=== PATIENT | female | born 1940 | race Caucasian/White ===

== ENCOUNTER → 2017-08-16 15:20 | Outpatient (REF) | payer MEDICARE, OTHER, SELFPAY | LOC: LAB 15:20 | PROVIDERS: Family Provider Internal Medicine; PCP Internal Medicine; Visit Provider Internal Medicine | DX: L08.9 Local infection of the skin and subcutaneous tissue, unspecified (principal) | CPT/HCPCS: 87070; 87075; 87077; 87205 ==

== ENCOUNTER → 2017-08-30 10:45 | Outpatient (CLI) | payer MEDICARE, OTHER, SELFPAY | PROVIDERS: Family Provider Internal Medicine; PCP Internal Medicine; Visit Provider Internal Medicine | DX: I87.333 Chronic venous hypertension (idiopathic) with ulcer and inflammation of bilateral lower extremity (principal); L97.812 Non-pressure chronic ulcer of other part of right lower leg with fat layer exposed; L97.822 Non-pressure chronic ulcer of other part of left lower leg with fat layer exposed | CPT/HCPCS: 11042 ==

== ENCOUNTER → 2017-09-06 10:34 | Outpatient (CLI) | payer MEDICARE, OTHER, SELFPAY | PROVIDERS: Family Provider Internal Medicine; PCP Internal Medicine; Visit Provider Internal Medicine | DX: I87.313 Chronic venous hypertension (idiopathic) with ulcer of bilateral lower extremity (principal); L97.812 Non-pressure chronic ulcer of other part of right lower leg with fat layer exposed; L97.222 Non-pressure chronic ulcer of left calf with fat layer exposed | CPT/HCPCS: 11042 ==

== ENCOUNTER → 2017-09-13 10:39 | Outpatient (CLI) | payer MEDICARE, OTHER, SELFPAY | PROVIDERS: Family Provider Internal Medicine; PCP Internal Medicine; Visit Provider Internal Medicine | DX: I87.2 Venous insufficiency (chronic) (peripheral) (principal); L97.812 Non-pressure chronic ulcer of other part of right lower leg with fat layer exposed; L97.821 Non-pressure chronic ulcer of other part of left lower leg limited to breakdown of skin | CPT/HCPCS: 11042; 29580 ==

== ENCOUNTER → 2017-09-20 16:02 | Outpatient (CLI) | payer MEDICARE, OTHER, SELFPAY | PROVIDERS: Family Provider Internal Medicine; PCP Internal Medicine; Visit Provider Internal Medicine | DX: I87.313 Chronic venous hypertension (idiopathic) with ulcer of bilateral lower extremity (principal); L97.812 Non-pressure chronic ulcer of other part of right lower leg with fat layer exposed; L97.821 Non-pressure chronic ulcer of other part of left lower leg limited to breakdown of skin | CPT/HCPCS: 11042 ==

== ENCOUNTER → 2017-09-27 14:00 | Outpatient (CLI) | payer MEDICARE, OTHER, SELFPAY ==
--- NOTE | 2017-09-27 | OV.WND_ITS ---
Progress Note Details Patient Name: Tiffanie Gomez Patient Number: [id number] PatientPatientDate: 09/27/2017 Clinician: Kerry Kapadia Clinician Cosigner: Oksana Lyman Physician / Timber Killer: William Zavala SUBJECTIVE Chief Complaint This information was obtained from the patient Venous ulcers to bilateral lower extremities. Allergies Oxycodone (Reaction: severe mental change), Morphine (Reaction: mental change), Hydromorphone (Reaction: mental change), ampicillin (Severity: Severe, Reaction: Itchy rash) HPI This information was obtained from the patient 09/27/17. Seen by Dr. Zavala. The patient reports significant itching associated with the left lower leg compression wrap and has again cut the top portion of the wrap. She's also not been taking her diuretic as prescribed the past few days and staff feel the bilateral lower leg edema has increased considerably since her last visit. Otherwise there's no reported increasing in drainage or pain associated with the bilateral lower leg venous ulcers. 09/20/17. Seen by Dr. Zavala. The patient has tolerated compression therapy that's treating severe bilateral lower leg chronic venous hypertension and associated venous ulcers and staff do not report significant drainage on the dressings. 09/13/17. Seen by Dr. Zavala. The patient has tolerated compression therapy that' s treating severe bilateral lower leg chronic venous hypertension and associated venous ulcers and staff do not report significant drainage on the dressings. 09/06/17. Seen by Dr. Zavala. The patient does not report pain associated with bilateral lower leg venous ulcers since her last visit and she tolerated compression therapy that treating severe bilateral chronic venous hypertension without difficulty. 08/30/17. Seen by Dr. Zavala. The patient does not report pain associated with bilateral lower leg venous ulcers since her last visit and she tolerated compression therapy that treating severe bilateral chronic venous hypertension without difficulty. 08/23/17. Seen by Dr. Zavala. The patient does not report increased drainage or pain associated with bilateral lower leg venous ulcers since her last visit. She reports that she arrived today without dressings over he ulcers however. Her wound culture from the last visit was unremarkable. 08/16/17. Seen by Dr. Zavala. The patient does not report increased drainage or pain associated with bilateral lower leg venous ulcers since her last visit. 08/09/17. Seen by Dr. Zavala. The patient does not report increased drainage or pain associated with bilateral lower leg venous ulcers since her last visit. 08/02/17. Seen by Dr. Zavala. The patient returns for clinic following a recent admission to the hospital for bilateral lower extremity cellulitis. She seen by her primary care provider earlier this week who increased her Lasix from 40 mg 80 mg daily. Despite this she reports significant leg swelling and monitor mental regarding whether she is taking her Lasix as prescribed. She also continues on dicloxacillin for the cellulitis. 07/05/17. Seen by Dr. Zavala. The patient does not report increased drainage or pain associated with bilateral lower leg venous ulcers since her last visit. She states that she is wearing and changing her compression stockings although the nurses note that they were dated at the last visit and do not appear 06/28/17. Seen by Elliot Hernandez PA-C. The patient reports decreased drainage from her lower extremity ulcers. 06/21/17. Seen by Elliot Hernandez PA-C. The patient reports that part of her leg wraps fell down but the portion near her ankles and feet stayed in place. She does not report increased drainage from her lower extremity venous ulcers. 06/14/17. Seen by Elliot Hernandez PA-C. The patient reports no increase in drainage from her bilateral lower extremity ulcers. 06/07/17. Seen by Elliot Hernandez PA-C. The patient reports increased pain in her left foot and increased drainage from her left foot ulcer. 05/31/17. Seen by Dr. Zavala. The patient was recently discharged from the hospital following an admission for left lower leg and left foot cellulitis. She was treated with IV antibiotics and is now on oral levofloxacin and cefdinir. She was also heavily diuresed and has lost 16 pounds from her last visit. She does not report fevers, feeling unwell, nor adverse side effects of her antibiotics. 05/24/17. Seen by Elliot Hernandez PA-C. The patient reports that she has had a low grade fever 05/17/17. Seen by Elliot Hernandez PA-C. The patient reports decreased drainage from her right lower leg venous ulcers since her last evaluation. 05/10/17. Seen by Elliot Hernandez PA-C. The patient reports stable drainage from her right lower leg venous ulcers. When we noted a new ulcer, more proximal than the existing ones, she stated that this new ulcer has been continuously present for a few weeks without worsening or improving. Associated drainage from this new ulcer has been moderate with minimal, non-radiating pain noted. 05/03/17. Seen by Dr. Zavala. The patient does not report increased drainage associated with the chronic right lower leg venous ulcers since her last visit. 04/26/17. Seen by Dr. Zavala. The patient does not report increased drainage associated with the chronic right lower leg venous ulcers since her last visit and she is applying topical antibiotic to treat the MSSA positive wound culture as recommended. 04/19/17. Seen by Dr. Zavala. The patient does not report increased drainage associated with the chronic right lower leg venous ulcers since her last visit. 04/12/17. Seen by Dr. Zavala. The patient does not report pain or increased drainage associated with chronic right lower leg venous ulcers since her last visit. Recent wound culture grew MSSA plus group B streptococcus and Buttiauxella agrestis which is a gram-negative mi. She states she is taking her diuretic, applying topical gentamicin to the wound base, and wearing compression stockings to manage chronic venous hypertension as recommended. 04/05/17. Seen by Dr. Zavala. The patient does not report pain or increased drainage associated with chronic right lower leg venous ulcers since her last visit. 03/29/17. Seen by Dr. Zavala. The patient does not report pain or increased drainage associated with chronic right lower leg venous ulcers since her last visit. 03/22/17. Seen by Dr. Zavala. The patient does not report pain nor significant drainage associated with chronic right lower leg venous ulcer since her last visit. The staff report some new ulcers however over the right lower leg today. 03/15/17. Seen by Dr. Zavala. The patient does not report pain nor significant drainage associated with chronic right lower leg venous ulcer since her last visit and she's wearing her compression stocking as recommended that's treating right lower leg chronic venous hypertension. Her dressing has been in place since Sunday and the staff report some new periwound erythema and possible new areas of skin breakdown. 02/22/17. Seen by Dr. Zavala. The patient does not report pain nor significant drainage associated with chronic right lower leg venous ulcer since her last visit. 02/15/17. Seen by Dr. Zavala. The patient does not report pain nor significant drainage associated with chronic right lower leg venous ulcer since her last visit. 02/08/17. Seen by Elliot Hernandez PA-C. The patient reports she has been unable to change her dressings on her lower legs and has been unable to bathe. Her dressings have remained in place for >1 week. She is hoping to have home health come and help her with dressing changes. Of note, she does not leave the house, except for doctors appointments, and when she does leave it is with great difficulty. 01/11/17. Seen by Dr. Zavala. The patient does not report pain nor significant drainage associated with chronic right lower leg venous ulcer since her last visit. 01/04/17. Seen by Elliot Hernandez PA-C. The patient reports no increase in drainage from her lower extremity ulcers since her last evaluation. 12/28/16. Seen by Elliot Hernandez PA-C. The patient reports decreased drainage from her lower extremity ulcers. 12/21/16. Seen by Elliot Hernandez PA-C. The patient reports decreased drainage from her lower extremity ulcers since her last evaluation. 12/14/16. Seen by Elliot Hernandez PA-C. The patient reports decreased drainage from her lower extremity ulcers. 12/07/16. Seen by Dr. Zavala. The patient does not report significant drainage or pain associated with the chronic right lateral lower leg venous ulcer. The staff however report a new ulcer on the anterior right lower leg today. 11/30/16. Seen by Elliot Hernandez PA-C. The patient reports decreased drainage from her lower leg venous ulcers. 11/23/16. Seen by Dr. Zavala. The patient does not report significant drainage or pain associated with the chronic right lateral lower leg venous ulcer. The staff do report a new ulcer on the posterior left lower leg today. The patient is now being seen at the end of the day and her daughter is accompanying her due to last week's episode of flea infestation and the need for infectious control to be involved in her care plan. Adult Protective Services were also alerted over the past week however there is no feedback yet regarding their involvement. 11/16/16. Seen by Elliot Hernandez PA-C. The patient reports no increase in drainage from her right lower leg venous ulcers. Nursing reports that approximately 20-30 fleas jumped off of the patient's legs including from under her wound dressing, when it was removed. The patient denies having fleas. 11/09/16. Seen by Elliot Hernandez PA-C. The patient reports continued drainage from her right lower leg venous ulcers despite topical antimicrobial therapy. Her recent culture grees pseudomonas stutzeri with multiple sensitivities. 11/02/16. Seen by Dr. Zavala. The patient does not report increased pain associated with the chronic right lower leg venous ulcers however staff report increased colored drainage on her dressings. She does not report fevers or feeling unwell and is not currently on antibiotics. 10/24/16. Seen by Dr. Zavala. The patient does not report increased drainage or pain associated with the right lower leg venous ulcers since her last visit. 10/21/16. Seen by Elliot Hernandez PA-C. The patient's wound culture grew staph aureus. The patient reports stable drainage from her right lower leg venous ulcer. 10/12/16. Seen by Elliot Hernandez PA-C. The patient returns to us after a hospitalization and SNF stay for cellulitis of her right lower leg. Currently she has home health assisting her with her dressing changes for her right lower leg venous ulcer and they have recommended she present to us for more specialized care. 08/23/16. Seen by Dr. Zavala. The patient was unable to start her IV antibiotics that were prescribed at her visit last week due to financial limitations. She is prescribed cefepime at that time to treat the refractory and multidrug-resistant pseudomonas positive wound culture. She reports increased redness in the leg but no significant pain, fevers, or feeling unwell. 08/10/16. Seen by Dr. Zavala. The staff report significant drainage and malodor associated with the chronic right lower leg non-pressure ulcers and the patient continues on antibiotics for the recent Proteus and Enterococcus positive culture but there's a discrepancy on how many days she has left to take. She does not report pain in the leg, fevers, or feeling unwell and states she's changing the dressing twice daily. 07/26/16. Seen by Dr. Zavala. The patient continues on dual antibiotic therapy for the recent Proteus and Entercoccus positive wound cultures taken from the chronic right lower leg venous ulcers without reporting adverse side effects. She feels the larger posterior right lower leg ulcer continues to produce significant drainage but she does not report pain at the site. She states she's wearing her compression stocking and taking her diuretics as prescribed despite showing increased swelling in the leg today. She does not report fevers or feeling unwell in general. 07/20/16. Seen by Dr. Zavala. The patient does not report pain continues report drainage associated with the right chronic venous ulcers. She continues on dual antibiotic therapy without reporting adverse side effects for the recent Proteus and enterococcus positive wound cultures and does not report adverse side effects. She does not report fevers or feeling unwell in general. 07/13/16. Seen by Dr. Zavala. The patient does not report pain continues report drainage associated with the right chronic venous ulcers. She continues on dual antibiotic therapy for the recent Proteus and enterococcus positive wound cultures and does not report adverse side effects. 07/06/16. Seen by Dr. Zavala. The patient does not report pain or increased drainage associated with the chronic right lower leg venous ulcers nor right 3rd toe trauma wound. The staff however continue to report some blue-green drainage from the posterior ulcer. She states she is applying gentamicin ointment topically to the ulcers and is now off of oral antibiotics. She does not report fevers or feeling unwell. 06/29/16. Seen by Dr. Zavala. The patient continues applying topical gentamicin ointment for the Pseudomonas positive culture taken from the right lower leg venous ulcer. The staff continue to report a blue green drainage from the site however the patient does not report significant pain nor significant drainage or pain associated with the other right lower leg venous ulcers. 06/22/16. Seen by Dr. Zavala. The patient continues on antibiotics for the Pseudomonas positive culture taken from the right lower leg venous ulcer. The staff continue to report a blue green drainage from the site however the patient does not report significant pain nor significant drainage or pain associated with the other right lower leg venous ulcers. 06/15/16. Seen by Dr. Zavala. The patient continues on ciprofloxacin for the right lower leg ulcer infection which cultured Pseudomonas. She does not report adverse side effects and feels the drainage has decreased somewhat. The does not report pain at this nor the other lower leg venous ulcers and states she's wearing her compression stockings as recommended. 2/20/17. Seen by Elliot Hernandez PA-C. The patient presents today with 3 new ulcers on her right lower leg which began spontaneously. She has had stable drainage from her previous venous ulcers. 05/18/16. Seen by Dr. Zavala. The patient does not report drainage or pain associated with the bilateral lower leg venous ulcers since her last visit. Of note, the staff report blue/ green drainage on the dressing covering the right lower leg ulcer. 05/11/16. Seen by Dr. Zavala. The patient does not report drainage or pain associated with the bilateral lower leg venous ulcers since her last visit. She should have completed her levofloxacin however states she still has a few tablets left. Of note, she has a habit of not taking her antibiotics as prescribed. 05/04/16 Seen by Elliot Hernandez PA-C. The patient reports no drainage from her left leg venous ulcers since her last dressing change, though she reports a new area of drainage on the right lower anterior leg. 04/27/16. Seen by Dr. Zavala. The patient does not report drainage or pain associated with the bilateral lower leg venous ulcers since her last visit. She's now on levofloxacin and cefdinir for the recent polymicrobial wound culture and does not report adverse side effects, fevers, or feeling unwell in general 04/20/15. Seen by Dr. Zavala. The patient does not report drainage or pain associated with the bilateral lower leg venous ulcers since her last visit however staff report periwound erythema and drainage from most of the ulcers. Of note, she's to be wearing compression stockings to treat bilateral chronic venous hypertension but states she has not for the past day while they're being washed. 03/30/16. Seen by Dr. Zavala. The staff reports a number of new left lower leg venous ulcers. The patient reportedly has been wearing a larger compression stocking due to the recommended size being too tight. The patient states she's been taking her diuretic is prescribed and does not report pain or drainage associated with the bilateral lower leg venous ulcers. She is also on doxycycline now for the staph cultured from her right leg ulcer last visit. 03/23/16. Seen by Dr. Zavala. The staff report a new anterior right lower leg ulcer today however the patient is unaware of this issue. She does not report pain at the site nor at the site of the more lateral/posterior chronic non-pressure ulcer. She states she's wearing her compression stockings however staff note that they appear to be quite dirty. 03/02/16. Seen by Dr. Zavala. The patient does not report pain or significant drainage associated with the chronic right lower leg venous ulcer over the past week. She states that she is compliant in terms of taking her diuretic and wearing compression stockings although she states she did not take her diuretic prior to her appointment today. 02/24/16. Seen by Dr. Zavala. The patient does not report pain or significant drainage associated with the chronic right lower leg venous ulcer over the past week. 02/10/16. Seen by Dr. Zavala. The patient does not report pain or significant drainage associated with the chronic right lower leg venous ulcer and she states she's wearing her compression stocking and taking her diuretic as recommended to address the severe chronic venous hypertension in both leg. She states she's still taking Bactrim, and has been taking it as scheduled, despite the fact this should have run out last week. 02/03/16. Seen by Dr. Zavala. The patient does not report pain or significant drainage associated with the chronic right lower leg venous ulcer and she states she's wearing her compression stocking and taking her diuretic as recommended to address the severe chronic venous hypertension in both legs. She also continues on Bactrim for the recent MRSA positive wound culture and does not report adverse side effects. 01/27/16. Seen by Dr. Zavala. The patient does not report pain or significant drainage associated with the chronic right lower leg venous ulcer and she states she's wearing her compression stocking and taking her diuretic as recommended to address the severe chronic venous hypertension in both legs. She also continues on Bactrim for the recent MRSA and Enterobacter positive wound culture without reporting adverse side effects. 01/20/16. Seen by Dr. Zavala. The patient does not report pain or significant drainage associated with the chronic right lower leg venous ulcer and she states she's wearing her compression stocking and taking her diuretic as recommended to address the severe chronic venous hypertension in both legs. 01/13/16. Seen by Dr. Zavala. The patient does not report pain or significant drainage associated with the chronic right lower leg venous ulcer and she states she's wearing her compression stocking and taking her diuretic as recommended to address the severe chronic venous hypertension in both legs. She does not report pain or recurrence of cellulitis in the left lower leg that was recently treated during a hospital admission. 01/06/16. Seen by Dr. Zavala. The patient was recently discharged from [facility] following a hospital admission for severe left lower leg cellulitis. She feels this has resolved and she does not report significant drainage associated with remaining chronic right lower leg venous ulcer. She was treated with IV antibiotics for the cellulitis and has been on her diuretic as prescribed to address the significant bilateral chronic venous hypertension. 12/16/15. Seen by Dr. Zavala. The patient presents with her daughter today who's very concerned her mother has been having 'flu-like' symptoms and feeling quite unwell the past couple of days. The patient reports increased redness and swelling in the left lower leg along with a subjective fever. The patient does not report a cough or symptoms unrelated to her left lower leg at this time. 12/09/15. Seen by Dr. Zavala. The patient presents with a few new venous ulcers over the right lower leg. She states she's not wearing her compression stocking because she was advised as such. She's been placing a Xeroform dressing over the ulcers although we recommended Exudry. She also states she did not take her diuretic today but has been taking it as prescribed otherwise. She does not report pain associated with the right lower leg venous ulcers nor fevers or feeling unwell. 12/02/15. Seen by Dr. Zavala. The patient does not report pain or increase drainage associated with her chronic right lower leg venous ulcers over the past week. 11/11/15. Seen by Dr. Zavala. The patient states she's wearing her compression stockings and taking her diuretic as prescribed. She does not report pain or drainage associated with the chronic bilateral lower leg venous ulcers. 11/04/15. Seen by Dr. Zavala. The patient does not report significant drainage or pain associated with the bilateral venous ulcers over the past week. She's taking her diuretic as prescribed and wearing compression stockings as recommended. 10/28/15. Seen by Dr. Zavala. The patient does not report pain or significant drainage associated with the right lower leg venous ulcer in the past week. She states she's wearing her compression stockings as recommended. She's also been taking her antibiotic is prescribed to treat the right lower leg wound infection. 10/21/[address] Zavala. The patient does not report pain or significant drainage associated with the bilateral venous ulcers and states she's wearing her compression stockings and taking her diuretic as directed. Her wound culture from the last visit grew Enterobacter and Proteus and she's not current taking oral antibiotics. 10/14/[address] Zavala. The patient feels her bilateral leg swelling is decreasing and she states she remain compliant with her diuretic therapy and wearing of compression stockings to treat chronic venous hypertension and associated multiple bilateral venous ulcers. She's applying gentamicin ointment to the ulcers to treat the recent Proteus and Enterobacter positive wound culture and she does not report significant pain or drainage associated with any of the ulcers. 10/07/[address] Zavala. The patient reports continued drainage associated with the bilateral lower leg venous ulcers. She also reports minimal pain associated with the right anterior lower leg ulcer. She's not wearing her compression stockings daily as recommended and skips a dose of Lasix intermittently. 09/30/[address] Zavala. The patient reports minimal pain and drainage associated with the chronic right and left lower leg venous ulcers over the past week. 09/23/15 Seen by Elliot Hernandez PA-C. The patient reports stable drainage from her lower leg ulcers. 09/16/[address] Zavala. The patient continues to report swelling and erythema of the right lower leg and some mild discomfort associated with the distal venous ulcer. She's wearing compression stockings as recommended to treat the chronic venous hypertension and she's completed a course of cefdinir within the last week for a polymicrobial wound culture and she does no report adverse side effects. She does not report fever or feeling unwell in general otherwise. 09/09/[address] Zavala. The patient states her right lower leg pain is improving and she continues on cefdinir for the recent Staph and Proteus positive wound culture. She also states she's wearing he compression stockings as recommended. 09/02/[address] Zavala. The patient reports persistent swelling and redness of the right lower leg in the periwound areas and states she continues to take her antibiotics although she should have completed her course after her last visit. Her recent wound culture grew Proteus and MSSA. She does not report significant drainage from the bilateral lower leg venous ulcers and is wearing her compression stockings as recommended. 08/26/[address] Zavala. The patient does not report significant pain or drainage associated with her bilateral lower leg venous ulcers and she's now on cefdinir for a Staph and Proteus positive wound culture taken at the last visit. She feels her leg swelling and redness have improved and she's started taking her diuretic again as recommended. She's not yet wearing her compression stockings however. 08/19/[address] Zavala. The patient returns to clinic reporting new ulcers over the bilateral lower legs She reports increased swelling and redness of the right lower leg starting about two weeks ago but no fever or associated pain. She also admits to not taking her Lasix as scheduled due to urinary incontinence issues and has been unable to apply her compression stockings due to the increased swelling. 05/27/[address] Zavala. The patient does not report significant drainage from her bilateral lower leg venous ulcers and she's wearing compression stockings and taking Lasix as recommended. 05/13/[address] Zavala. The patient's weight has increased by 7 lbs since her last visit and the staff report new venous ulcers over the lower legs. The patient states she missed her lasix dosage the past two days as well but has been wearing her compression stockings daily. 04/22/[address] Zavala. The patient does not report any new leg ulcers nor significant drainage or pain from the previously documented bilateral lower leg venous ulcers. 04/15/[address] Zavala. The staff report a new left posterior left lower leg ulcer however the patient does not know how this may have occurred and states it is not painful. In fact she does not report significant drainage or pain associated with any of her bilateral lower leg venous ulcers. 04/01/[address] Zavala. The patient reports a new right anterior lower leg ulcer that she feels occurred as an abrasion from the Tetragrip compression stocking. She remains compliant with compression therapy to treat her chronic venous hypertension and bilateral lower leg venous ulcers and does not report significant pain or drainage from any. 03/18/[address] Zavala. The patient does not report any new ulcers nor significant drainage or pain associated with the chronic bilateral lower leg venous ulcers. 03/10/[address] Zavala. The patient reports a new ulcer on the right lower leg but does not report trauma to the area. She states she's wearing her compression stockings as recommended. She does not report pain or significant drainage from the bilateral lower leg chronic venous ulcers and states she's compliant with her diuretic therapy which has been treating her leg edema. 03/04/[address] Zavala. The patient reports new ulcers over both lower legs but does not recall when in the past week they occurred nor any inciting events. She continues to compression stockings as recommended for chronic venous hypertension and does not report significant pain or drainage associated with any of the venous ulcers. 02/18/[address] Zavala. The patient reports a new ulcer over the anterior right lower leg the was first noticed yesterday when taking off her compression stocking. It started as a blister and she states it's not painful. She also states she's taking her diuretic as prescribed. 01/28/[address] Zavala. The patient does not report any problems regarding her right lower leg venous ulcer and she states she's wearing her compression stockings and taking her diuretic as prescribed. 01/14/[address] Zavala. The patient does not report significant drainage or pain associated with the bilateral lower leg venous ulcers. She states she's been compliant with her diuretic therapy and compression stockings and her weight is unchanged from last week. 01/07/[address] Zavala. The patient does not report drainage or pain associated with her bilateral lower leg venous ulcers and she was able to wear her compression stockings as recommended. She also reports being compliant with her diuretic therapy. 12/31/[address] Zavala. The patient was recently discharged from the hospital following treatment for left leg cellulitis. She feels the swelling and erythema are much improved and she's completed her course of antibiotics. She has recurrence of venous ulcers over both lower legs and reports moderate drainage but no pain. She's also reports being compliant with her diuretic therapy but has not been wearing compression stockings as we've recommended repeatedly in the past. 09/18/[address] Zavala. The patient has a fever of 101.9 today and complains only of some shortness of breath. She does not report increased swelling, pain, or drainage associated with her bilateral lower leg venous ulcers and she's currently not on systemic antibiotics. 09/10/[address] Zavala. The patient states she started taking her lasix as prescribed and feels her leg swelling is decreasing. She does not report increased drainage from the bilateral lower extremity venous ulcers and is using only topical gentamicin ointment. She states she's wearing her compression stockings during the day as recommended. She's also drinking 1-2 Ensure protein drinks daily to address her protein calorie malnutrition. 09/03/[address] Zavala. The patient does not report fever or chills but admits to being noncompliant with her diuretic therapy. Her weight is up 13 lbs in the past two weeks. She also reports a rash after starting her ampicllin and stopped using it on Sunday. She also states she's drinking one Ensure daily to address her protein calorie malnutrition. 08/27/[address] Zavala. The patient has been wearing her Tetragrips to the level of the ankles as recommended. She's taking ampicillin for an Enterococcus positive wound culture reported on 08/21/14. She does not report pain or increased drainage from the venous ulcers. 08/20/[address] Zavala. The patient states she's not comfortable wearing the compression wraps and they tend to slip down her legs. She does not report pain or drainage from the bilateral lower leg venous ulcer sites and states she's much prefer using her compression stockings instead of wraps. She also continues on doxycycline and does not report adverse side effects. 08/11/14 Seen by Elliot Hernandez PA-C. The patient reports that her wraps slid down her legs again and she finds them uncomfortable and difficult to comply with. She was able to find her old Juxtalite compression stocking for her left leg only and believes her other one is lost. She also reports that she has previously used the same stocking, on both legs by alternating the application of the stockings. 07/30/14 The patient tolerated the compression wraps without difficulty and they were able to stay in place until her appointment today. She continues on doxycycline and states she has no pain associated with the leg ulcers. 07/28/14 The patient tolerated the compression wraps without difficulty and feels her bilateral lower leg ulcers are much improved. She does not report pain or increased drainage and continues on doxycycline. 07/23/14 The patient feels her leg swelling is increasing somewhat and states she wears her compression stockings most days. She does not report increase pain or drainage associated with her bilateral lower leg ulcers and she continues on doxycycline for cellulitis in the lower legs. Of note, her prealbumin was 13.7 in early June and she's was advised to drink and Ensure daily at the time. In regards to her weight it's been fluctuating recently which probably has more to do with water retention than nutrition. 07/16/14 The patient feels the drainage from her leg ulcers has decreased considerably since her last visit and she's remains compliant with her antibiotic therapy along with wearing her compression stockings as recommended. 07/09/14 The patient reports decreased pain and drainage from her venous leg ulcers. She has been compliant with her doxycycline and tetra item processing clerk compression. Her diuretics have not been changed. 07/02/14 The patient has two new ulcers on her lower legs today and is unclear as to whether she's been wearing compression stockings at home. Of note, her compression wraps have not stayed in place in the past due to the significant narrowing of her legs below the calf muscles. She also states she's on a diuretic although I do not see one on her recent discharge medication list. She' s had a 10 lb weight gain over the past 2 weeks. 06/26/14 The patient returns to the clinic with new lower leg wounds which she states were first noticed a couple of days ago but she does not recall injury to the sites. She states she' s been wearing her compression stockings as recommended. Of note, her prealbumin on 06/15/14 was 13.7. 06/17/14 The patient feels her leg swelling and ulcers are much improved and does not report increased drainage or pain. 06/10/14 The patient does not report any new issues regarding her leg ulcers however she does have a number of new wounds on the lower legs including a pressure ulcer on the left heal. She's also off of antibiotics now with no reported fever or increase in drainage. The dressings on the left leg were noted to be dried and adherent to the underlying ulcers. 06/03/14 The patient was recently discharged to [facility] from [facility] following treatment for severe left leg cellulitis an bilateral venous ulcers. She as found to have considerable fecal material over both lower legs and her wound culture grew on streptococcus. She continues on IV antibiotics and feels the leg pain is much improved. ____ Patient admitted to hospital 2 weeks ago for cellulitis in her right leg. Over ten excoriated areas on right leg, and very swollen. 08/15/12 everything went ok with the wraps. 08/19/12 Dressing came off last night. Tubigrip on 08/27/12 Arrives without tubigrip on legs. States has been wearing but not this am. Has scattered superficial ulcers over lower right leg. States been using dry skin cream. Had dressings from last , [address] mid tibia 09/03 Patient arrived to clinic with wrap intact on right leg and medigrip on left leg. States she is having no pain and that legs seem to be doing fine. 03/07/13- Patient is being seen by us today because she had cellulitis in her left leg, was admitted into the hospital on 02/20/13 and discharged on 02/28/13. Is now residing at [facility]. Her leg has cleared up, scattered areas of erythema and some excoriations are present. Edema measurements are similar to patient's last visit. 03/28/13 Pt states she has been wearing compression stockings at home but isn't wearing them today. No new concerns or complaints. 05/02/13 has been applying cream qOday and tetrigrip stockings. now has 4 areas of wounds to right lower leg. has been taking antibiotic as prescribed 05/14/13 Dressing being changed every other day. No problems or concerns. Wearing tetragrip on right leg but was cutting circulation off in left leg so patient was is not wearing it anymore 05/21/13 Pt took dressings off this am but did not replace with a fresh dressing. PT has tetra item processing clerk to right leg only.05/28/13 Pt states she still has a rash on her abdomen that bleeds a little. 06/04/13 Dressing being changed daily. No problems or concerns 06/11/13 Pt states dressing changes going ok at home.Pt states drainage from abdominal wound has decreased and she thinks the rash around belly button has cleared. 06/18/13 Pt states she thinks things are going well. Umbillicus dressing not preformed as instructed and two pieces of foam found in umbillicus. Increase in drainage and pt states it was changed yesterday. Increased odor. 06/23/13- No new problems or concernss. Changing abdomen dressing about every other day, states no problems with dressing changes. Past Medical History This information was obtained from the patient Patient has a medical history of: Peripheral neuropathy Necrotizing fasciitis Childhood rheumatic fever Chronic venous hypertension (with ulcer and inflammation; bilateral lower legs; Enterococcus and Diptheroids positive culture 08/21/14) Protein calorie malnutrition - 06/15/2014 Complaints and Symptoms This information was obtained from the patient Patient complains of: General Notes: I have reviewed and concur with the Review of Systems and Past Family Social History documents completed by the clinician, I have reviewed and concur with the Wound Assessment document completed by the clinician Cardiovascular (Central/Peripheral): Lower extremity (leg) swelling Integumentary (Hair/Skin/Nails): Open Sore Musculoskeletal: Assistive Devices Prior Wound History: Drainage, Erythema, Pain Patient denies complaints or symptoms related to: Cardiovascular (Central/Peripheral): Lower extremity (leg) resting pain Constitutional Symptoms (General Health): Chills, Fever, Marked Weight Change Ear/Nose/Mouth/Throat: Hearing Loss / Aid Gastrointestinal (GI): Nausea / Vomiting, Stomach/abdominal pain Hematologic/Lymphatic: Bleeding / Clotting Disorders, Bleeding Tendency Neurological: Loss of Protective Sensation Prior Wound History: Bleeding, Malodor Psychiatric: Memory Loss Respiratory: Oxygen Use, Shortness of Breath OBJECTIVE Constitutional BP elevated; Afebrile; Alert and in no distress. Well developed. Alert. Clean appearing.. Height/Length: 65 in (165.1 cm), Weight: 295.7 lbs (134.41 kgs), BMI: 49.2, Temperature: 97.8 ? F (36.56 ?C), Pulse: 81 bpm, Respiratory Rate: 18 breaths/min, Blood Pressure: 143/73 mmHg, Pulse Oximetry: 98 %. Ears, Nose, Mouth, and Throat: No clinically significant hearing loss on informal examination. Respiratory: Cardiovascular: 3+ bilateral lower leg edema; increased from last visit. Gastrointestinal (GI): Obese. Nondistended.. Integumentary (Hair, Skin) Hyperkeratotic changes noted over the bilateral lower legs. Refer to appropriate clinician wound documentation for this visit; right and left lower leg ulcers extend to subcut with bases partially covered with pink granulation, remainder fibrin and slough. Wound #80 Right, Lateral Leg is a chronic Full Thickness Venous Ulcer and has received a status of Not Healed. Subsequent wound encounter measurements are 0.8cm length x 0.5cm width x 0.1cm depth, with an area of 0.4 sq cm and a volume of 0.04 cubic cm. There is a moderate amount of sero- sanguineous drainage noted which has no odor. The patient reports a wound pain of level 0/10. The wound margin is attached. Wound bed has No epithelialization, No eschar, Yes slough, Yes bright red, firm granulation. The periwound skin moisture is normal. The periwound skin color is normal. The periwound skin exhibited: Edema, Induration. The periwound skin did not exhibit: Brawny Induration, Excoriation, Callus, Crepitus, Fluctuance, Friable, Rash. The temperature of the periwound skin is WNL. Periwound skin does not exhibit signs or symptoms of infection. Local Pulse is Normal. Wound #83 Left, Posterior Leg - lower is an acute Partial Thickness Venous Ulcer and has received a status of Not Healed. Subsequent wound encounter measurements are 0.4cm length x 0.3cm width x 0.2cm depth, with an area of 0.12 sq cm and a volume of 0.024 cubic cm. There is a small amount of sero-sanguineous drainage noted which has no odor. The patient reports a wound pain of level 0/10. The wound margin is attached. Wound bed has Yes epithelialization, No eschar, Yes slough, Yes bright red, firm granulation. The periwound skin moisture is normal. The periwound skin color is normal. The periwound skin exhibited: Edema. The periwound skin did not exhibit: Brawny Induration, Excoriation, Induration, Callus, Crepitus, Fluctuance, Friable, Rash. The temperature of the periwound skin is WNL. Periwound skin does not exhibit signs or symptoms of infection. Local Pulse is Palpable. Wound #85 Right, Posterior Leg is a Full Thickness Venous Ulcer and has received a status of Not Healed. Subsequent wound encounter measurements are 0.5cm length x 0.5cm width x 0.1cm depth, with an area of 0.25 sq cm and a volume of 0.025 cubic cm. No tunneling has been noted. No sinus tract has been noted. No undermining has been noted. There is a small amount of sero- sanguineous drainage noted which has no odor. The patient reports a wound pain of level 1/10. The wound margin is attached. Wound bed has No epithelialization, No eschar, Yes slough, Yes pink, firm granulation. The periwound skin moisture is normal. The periwound skin color is normal. The periwound skin exhibited: Edema. The periwound skin did not exhibit: Brawny Induration, Excoriation, Induration, Callus, Crepitus, Fluctuance, Friable, Rash. The temperature of the periwound skin is WNL. Periwound skin does not exhibit signs or symptoms of infection. Local Pulse is Doppler. Neurological: Cranial nerves grossly intact with symmetric function normal by informal observation.. ASSESSMENT Active Problems ICD-10 (Encounter Diagnosis) I87.333 - Chronic venous hypertension (idiopathic) with ulcer and inflammation of bilateral lower extremity (Encounter Diagnosis) L97.812 - Non-pressure chronic ulcer of other part of right lower leg with fat layer (Encounter Diagnosis) L97.822 - Non-pressure chronic ulcer of other part of left lower leg with fat layer exposed (Encounter Diagnosis) Z91.19 - Patient's noncompliance with other medical treatment and regimen (Encounter Diagnosis) L29.8 - Other pruritus PROCEDURES Wound #80 Wound #80 (Venous Ulcer) is located on the right, lateral leg. A skin/ subcutaneous tissue level surgical debridement with a total area debrided of 0.4 sq cm was performed by William Zavala MD. Subcutaneous was removed along with devitalized tissue: slough. The following instrument(s) were used curette. Pain control was achieved using 4% Lido. A time out was conducted prior to the start of the procedure. A minimal amount of bleeding was controlled with n/a. The procedure was tolerated well with a pain level of 0 throughout and a pain level of 0 following the procedure. Post Debridement Measurements: 0.8cm length x 0.5cm width x 0.2cm depth; with an area of 0.4 sq cm and a volume of 0.08 cubic cm; Wound #80 (Venous Ulcer) is located on the right, lateral leg. A Multilayer Compression procedure was performed by Kerry Kapadia RN. General Notes: Coban 2 layer compression wrap. Wound #83 Wound #83 (Venous Ulcer) is located on the left, posterior leg - lower. A skin/ subcutaneous tissue level surgical debridement with a total area debrided of 0.12 sq cm was performed by William Zavala MD. Subcutaneous was removed along with devitalized tissue: slough. The following instrument(s) were used curette. Pain control was achieved using 4% Lido. A time out was conducted prior to the start of the procedure. A minimal amount of bleeding was controlled with n/a. The procedure was tolerated well with a pain level of 0 throughout and a pain level of 0 following the procedure. Post Debridement Measurements: 0.4cm length x 0.3cm width x 0.3cm depth; with an area of 0.12 sq cm and a volume of 0.036 cubic cm; Wound #83 (Venous Ulcer) is located on the left, posterior leg - lower. A Multilayer Compression procedure was performed by Kerry Kapadia RN. General Notes: Coban 2 layer compression wrap. Wound #85 Wound #85 (Venous Ulcer) is located on the right, posterior leg. A skin/ subcutaneous tissue level surgical debridement with a total area debrided of 0.25 sq cm was performed by William Zavala MD. Subcutaneous was removed along with devitalized tissue: slough. The following instrument(s) were used curette. Pain control was achieved using 4% Lido. A time out was conducted prior to the start of the procedure. A minimal amount of bleeding was controlled with n/a. The procedure was tolerated well with a pain level of 0 throughout and a pain level of 0 following the procedure. Post Debridement Measurements: 0.5cm length x 0.5cm width x 0.2cm depth; with an area of 0.25 sq cm and a volume of 0.05 cubic cm; Additional Information Muscle fascia or bone removed and sent to pathology?: No Muscle fascia or bone removed and sent to pathology?: No Muscle fascia or bone removed and sent to pathology?: No Wound Orders: Wound #80 Right, Lateral Leg Anesthetic Topical Xylocaine to wound bed. - In clinic only. Cleanser Cleanse Wound: - Normal saline and gauze. May Shower. - Please use cast protector when showering. Topical Treatments Moisturizing lotion to surround skin. - Triamcinolone to chantal wound skin Dressings Primary dressing: - Bordered Foam. Cast padding to fill lower leg. UNNA layers to hold cast padding in place and below knee to hold up wrap. Cover and secure with: - Foam to cover all wounds. Coban 2 Layer compression wraps to both legs. Change Dressing: - Leave in place until next visit. Wound #83 Left, Posterior Leg - lower Anesthetic Topical Xylocaine to wound bed. - In clinic only. Cleanser Cleanse Wound: - Normal saline and gauze. May Shower. - Please use cast protector when showering. Topical Treatments Moisturizing lotion to surround skin. - Triamcinolone to chantal wound skin Dressings Primary dressing: - Bordered Foam. Cast padding to fill lower leg. UNNA layers to hold cast padding in place and below knee to hold up wrap. Cover and secure with: - Foam to cover all wounds. Coban 2 Layer compression wraps to both legs. Change Dressing: - Leave in place until next visit. Wound #85 Right, Posterior Leg Anesthetic Topical Xylocaine to wound bed. - In clinic only. Cleanser Cleanse Wound: - Normal saline and gauze. May Shower. - Please use cast protector when showering. Topical Treatments Moisturizing lotion to surround skin. - Triamcinolone to chantal wound skin Dressings Primary dressing: - Bordered Foam. Cast padding to fill lower leg. UNNA layers to hold cast padding in place and below knee to hold up wrap. Cover and secure with: - Foam to cover all wounds. Coban 2 Layer compression wraps to both legs. Change Dressing: - Leave in place until next visit. Additional Orders: Compression/Edema Control Multi Layer Wrap: - Coban 2 Layer compression wraps to both legs. Follow-Up Appointments Return Appointment: - - One week. Other information: If you develop fever, chills, increased pain, drainage, redness or swelling please call our office. If after hours, respond to the ER. Should you experience any significant changes in your wound(s) or have any questions regarding your home care instructions please contact the wound center @ [phone]. If after hours, contact your primary care physician or go to the hospital emergency room. Scribing Attestation I attest, as the nurse, that I scribed these orders for the physician. I've reviewed the clinician's documentation and agree with the evaluation and plan as written. In addition the patient's ulcers demonstrate evidence of non-viable devitalized tissue and they will continue to benefit from sharp debridement to help promote granulation and expedite healing. Also, we've applied topical triamcinolone to the proximal left lower leg to address the pruritus which hopefully will allow her to better tolerate the compression wrap. She'll also see her PCP later today and discuss her diuretic therapy which has been essential in helping to manage her severe chronic venous hypertension. Electronic Signature(s) Signed By: Date: William Zavala MD 09/28/2017 08:42:30 Entered By: William Zavala on 09/28/2017 08:35:00
== END ==
PROVIDERS: Family Provider Internal Medicine; PCP Internal Medicine; Visit Provider Internal Medicine
DX: I87.313 Chronic venous hypertension (idiopathic) with ulcer of bilateral lower extremity (principal); L97.812 Non-pressure chronic ulcer of other part of right lower leg with fat layer exposed; L97.822 Non-pressure chronic ulcer of other part of left lower leg with fat layer exposed; Z91.19 Patient's noncompliance with other medical treatment and regimen; L29.8 Other pruritus
CPT/HCPCS: 11042

== ENCOUNTER → 2017-10-04 11:59 | Outpatient (CLI) | payer MEDICARE, OTHER, SELFPAY ==
--- NOTE | 2017-10-04 | OV.WND_ITS ---
Progress Note Details Patient Name: Tiffanie Gomez Patient Number: [id number] PatientPatientDate: 10/04/2017 Clinician: Kerry Kapadia Clinician Cosigner: Melissa Warren Physician / Willow Worker: Warren Hernandez SUBJECTIVE Chief Complaint This information was obtained from the patient Venous ulcers to bilateral lower extremities. Allergies Oxycodone (Reaction: severe mental change), Morphine (Reaction: mental change), Hydromorphone (Reaction: mental change), ampicillin (Severity: Severe, Reaction: Itchy rash) HPI This information was obtained from the patient 10/04/17. Seen by Elliot Hernandez PA-C. The patient reports stable drainage from her left lower leg venous ulcers. 09/27/17. Seen by Dr. Zavala. The patient reports significant itching associated with the left lower leg compression wrap and has again cut the top portion of the wrap. She's also not been taking her diuretic as prescribed the past few days and staff feel the bilateral lower leg edema has increased considerably since her last visit. Otherwise there's no reported increasing in drainage or pain associated with the bilateral lower leg venous ulcers. 09/20/17. Seen by Dr. Zavala. The patient has tolerated compression therapy that's treating severe bilateral lower leg chronic venous hypertension and associated venous ulcers and staff do not report significant drainage on the dressings. 09/13/17. Seen by Dr. Zavala. The patient has tolerated compression therapy that' s treating severe bilateral lower leg chronic venous hypertension and associated venous ulcers and staff do not report significant drainage on the dressings. 09/06/17. Seen by Dr. Zavala. The patient does not report pain associated with bilateral lower leg venous ulcers since her last visit and she tolerated compression therapy that treating severe bilateral chronic venous hypertension without difficulty. 08/30/17. Seen by Dr. Zavala. The patient does not report pain associated with bilateral lower leg venous ulcers since her last visit and she tolerated compression therapy that treating severe bilateral chronic venous hypertension without difficulty. 08/23/17. Seen by Dr. Zavala. The patient does not report increased drainage or pain associated with bilateral lower leg venous ulcers since her last visit. She reports that she arrived today without dressings over he ulcers however. Her wound culture from the last visit was unremarkable. 08/16/17. Seen by Dr. Zavala. The patient does not report increased drainage or pain associated with bilateral lower leg venous ulcers since her last visit. 08/09/17. Seen by Dr. Zavala. The patient does not report increased drainage or pain associated with bilateral lower leg venous ulcers since her last visit. 08/02/17. Seen by Dr. Zavala. The patient returns for clinic following a recent admission to the hospital for bilateral lower extremity cellulitis. She seen by her primary care provider earlier this week who increased her Lasix from 40 mg 80 mg daily. Despite this she reports significant leg swelling and monitor mental regarding whether she is taking her Lasix as prescribed. She also continues on dicloxacillin for the cellulitis. 07/05/17. Seen by Dr. Zavala. The patient does not report increased drainage or pain associated with compression stockings although the nurses note that they were dated at the last visit and do not appear to be changed since then. 06/28/17. Seen by Elliot Hernandez PA-C. The patient reports decreased drainage from her lower extremity ulcers. 06/21/17. Seen by Elliot Hernandez PA-C. The patient reports that part of her leg wraps fell down but the portion near her ankles and feet stayed in place. She does not report increased drainage from her lower extremity venous ulcers. 06/14/17. Seen by Elliot Hernandez PA-C. The patient reports no increase in drainage from her bilateral lower extremity ulcers. 06/07/17. Seen by Elliot Hernandez PA-C. The patient reports increased pain in her left foot and increased drainage from her left foot ulcer. 05/31/17. Seen by Dr. Zavala. The patient was recently discharged from the hospital following an admission for left lower leg and left foot cellulitis. She was treated with IV antibiotics and is now on oral levofloxacin and cefdinir. She was also heavily diuresed and has lost 16 pounds from her last visit. She does not report fevers, feeling unwell, nor adverse side effects of her antibiotics. 05/24/17. Seen by Elliot Hernandez PA-C. The patient reports that she has had a low grade fever 05/17/17. Seen by Elliot Hernandez PA-C. The patient reports decreased drainage from her right lower leg venous ulcers since her last evaluation. 05/10/17. Seen by Elliot Hernandez PA-C. The patient reports stable drainage from her right lower leg venous ulcers. When we noted a new ulcer, more proximal than the existing ones, she stated that this new ulcer has been continuously present for a few weeks without worsening or improving. Associated drainage from this new ulcer has been moderate with minimal, non-radiating pain noted. 05/03/17. Seen by Dr. Zavala. The patient does not report increased drainage associated with the chronic right lower leg venous ulcers since her last visit. 04/26/17. Seen by Dr. Zavala. The patient does not report increased drainage associated with the chronic right lower leg venous ulcers since her last visit and she is applying topical antibiotic to treat the MSSA positive wound culture as recommended. 04/19/17. Seen by Dr. Zavala. The patient does not report increased drainage associated with the chronic right lower leg venous ulcers since her last visit. 04/12/17. Seen by Dr. Zavala. The patient does not report pain or increased drainage associated with chronic right lower leg venous ulcers since her last visit. Recent wound culture grew MSSA plus group B streptococcus and Buttiauxella agrestis which is a gram-negative mi. She states she is taking her diuretic, applying topical gentamicin to the wound base, and wearing compression stockings to manage chronic venous hypertension as recommended. 04/05/17. Seen by Dr. Zavala. The patient does not report pain or increased drainage associated with chronic right lower leg venous ulcers since her last visit. 03/29/17. Seen by Dr. Zavala. The patient does not report pain or increased drainage associated with chronic right lower leg venous ulcers since her last visit. 03/22/17. Seen by Dr. Zavala. The patient does not report pain nor significant drainage associated with chronic right lower leg venous ulcer since her last visit. The staff report some new ulcers however over the right lower leg today. 03/15/17. Seen by Dr. Zavala. The patient does not report pain nor significant drainage associated with chronic right lower leg venous ulcer since her last visit and she's wearing her compression stocking as recommended that's treating right lower leg chronic venous hypertension. Her dressing has been in place since Sunday and the staff report some new periwound erythema and possible new areas of skin breakdown. 02/22/17. Seen by Dr. Zavala. The patient does not report pain nor significant drainage associated with chronic right lower leg venous ulcer since her last visit. 02/15/17. Seen by Dr. Zavala. The patient does not report pain nor significant drainage associated with chronic right lower leg venous ulcer since her last visit. 02/08/17. Seen by Elliot Hernandez PA-C. The patient reports she has been unable to change her dressings on her lower legs and has been unable to bathe. Her dressings have remained in place for >1 week. She is hoping to have home health come and help her with dressing changes. Of note, she does not leave the house, except for doctors appointments, and when she does leave it is with great difficulty. 01/11/17. Seen by Dr. Zavala. The patient does not report pain nor significant drainage associated with chronic right lower leg venous ulcer since her last visit. 01/04/17. Seen by Elliot Hernandez PA-C. The patient reports no increase in drainage from her lower extremity ulcers since her last evaluation. 12/28/16. Seen by Elliot Hernandez PA-C. The patient reports decreased drainage from her lower extremity ulcers. 12/21/16. Seen by Elliot Hernandez PA-C. The patient reports decreased drainage from her lower extremity ulcers since her last evaluation. 12/14/16. Seen by Elliot Hernandez PA-C. The patient reports decreased drainage from her lower extremity ulcers. 12/07/16. Seen by Dr. Zavala. The patient does not report significant drainage or pain associated with the chronic right lateral lower leg venous ulcer. The staff however report a new ulcer on the anterior right lower leg today. 11/30/16. Seen by Elliot Hernandez PA-C. The patient reports decreased drainage from her lower leg venous ulcers. 11/23/16. Seen by Dr. Zavala. The patient does not report significant drainage or pain associated with the chronic right lateral lower leg venous ulcer. The staff do report a new ulcer on the posterior left lower leg today. The patient is now being seen at the end of the day and her daughter is accompanying her due to last week's episode of flea infestation and the need for infectious control to be involved in her care plan. Adult Protective Services were also alerted over the past week however there is no feedback yet regarding their involvement. 11/16/16. Seen by Elliot Hernandez PA-C. The patient reports no increase in drainage from her right lower leg venous ulcers. Nursing reports that approximately 20-30 fleas jumped off of the patient's legs including from under her wound dressing, when it was removed. The patient denies having fleas. 11/09/16. Seen by Elliot Hernandez PA-C. The patient reports continued drainage from her right lower leg venous ulcers despite topical antimicrobial therapy. Her recent culture grees pseudomonas stutzeri with multiple sensitivities. 11/02/16. Seen by Dr. Zavala. The patient does not report increased pain associated with the chronic right lower leg venous ulcers however staff report increased colored drainage on her dressings. She does not report fevers or feeling unwell and is not currently on antibiotics. 10/24/16. Seen by Dr. Zavala. The patient does not report increased drainage or pain associated with the right lower leg venous ulcers since her last visit. 10/21/16. Seen by Elliot Hernandez PA-C. The patient's wound culture grew staph aureus. The patient reports stable drainage from her right lower leg venous ulcer. 10/12/16. Seen by Elliot Hernnadez PA-C. The patient returns to us after a hospitalization and SNF stay for cellulitis of her right lower leg. Currently she has home health assisting her with her dressing changes for her right lower leg venous ulcer and they have recommended she present to us for more specialized care. 08/23/16. Seen by Dr. Zavala. The patient was unable to start her IV antibiotics that were prescribed at her visit last week due to financial limitations. She is prescribed cefepime at that time to treat the refractory and multidrug-resistant pseudomonas positive wound culture. She reports increased redness in the leg but no significant pain, fevers, or feeling unwell. 08/10/16. Seen by Dr. Zavala. The staff report significant drainage and malodor associated with the chronic right lower leg non-pressure ulcers and the patient continues on antibiotics for the recent Proteus and Enterococcus positive culture but there's a discrepancy on how many days she has left to take. She does not report pain in the leg, fevers, or feeling unwell and states she's changing the dressing twice daily. 07/26/16. Seen by Dr. Zavala. The patient continues on dual antibiotic therapy for the recent Proteus and Entercoccus positive wound cultures taken from the chronic right lower leg venous ulcers without reporting adverse side effects. She feels the larger posterior right lower leg ulcer continues to produce significant drainage but she does not report pain at the site. She states she's wearing her compression stocking and taking her diuretics as prescribed despite showing increased swelling in the leg today. She does not report fevers or feeling unwell in general. 07/20/16. Seen by Dr. Zavala. The patient does not report pain continues report drainage associated with the right chronic venous ulcers. She continues on dual antibiotic therapy without reporting adverse side effects for the recent Proteus and enterococcus positive wound cultures and does not report adverse side effects. She does not report fevers or feeling unwell in general. 07/13/16. Seen by Dr. Zavala. The patient does not report pain continues report drainage associated with the right chronic venous ulcers. She continues on dual antibiotic therapy for the recent Proteus and enterococcus positive wound cultures and does not report adverse side effects. 07/06/16. Seen by Dr. Zavala. The patient does not report pain or increased drainage associated with the chronic right lower leg venous ulcers nor right 3rd toe trauma wound. The staff however continue to report some blue-green drainage from the posterior ulcer. She states she is applying gentamicin ointment topically to the ulcers and is now off of oral antibiotics. She does not report fevers or feeling unwell. 06/29/16. Seen by Dr. Zavala. The patient continues applying topical gentamicin ointment for the Pseudomonas positive culture taken from the right lower leg venous ulcer. The staff continue to report a blue green drainage from the site however the patient does not report significant pain nor significant drainage or pain associated with the other right lower leg venous ulcers. 06/22/16. Seen by Dr. Zavala. The patient continues on antibiotics for the Pseudomonas positive culture taken from the right lower leg venous ulcer. The staff continue to report a blue green drainage from the site however the patient does not report significant pain nor significant drainage or pain associated with the other right lower leg venous ulcers. 06/15/16. Seen by Dr. Zavala. The patient continues on ciprofloxacin for the right lower leg ulcer infection which cultured Pseudomonas. She does not report adverse side effects and feels the drainage has decreased somewhat. The does not report pain at this nor the other lower leg venous ulcers and states she's wearing her compression stockings as recommended. 06/05/16. Seen by Elliot Hernandez PA-C. The patient presents today with 3 new ulcers on her right lower leg which began spontaneously. She has had stable drainage from her previous venous ulcers. 05/18/16. Seen by Dr. Zavala. The patient does not report drainage or pain associated with the bilateral lower leg venous ulcers since her last visit. Of note, the staff report blue/ green drainage on the dressing covering the right lower leg ulcer. 05/11/16. Seen by Dr. Zavala. The patient does not report drainage or pain associated with the bilateral lower leg venous ulcers since her last visit. She should have completed her levofloxacin however states she still has a few tablets left. Of note, she has a habit of not taking her antibiotics as prescribed. 05/04/16 Seen by Elliot Hernandez PA-C. The patient reports no drainage from her left leg venous ulcers since her last dressing change, though she reports a new area of drainage on the right lower anterior leg. 04/27/16. Seen by Dr. Zavala. The patient does not report drainage or pain associated with the bilateral lower leg venous ulcers since her last visit. She's now on levofloxacin and cefdinir for the recent polymicrobial wound culture and does not report adverse side effects, fevers, or feeling unwell in general 04/20/15. Seen by Dr. Zavala. The patient does not report drainage or pain associated with the bilateral lower leg venous ulcers since her last visit however staff report periwound erythema and drainage from most of the ulcers. Of note, she's to be wearing compression stockings to treat bilateral chronic venous hypertension but states she has not for the past day while they're being washed. 03/30/16. Seen by Dr. Zavala. The staff reports a number of new left lower leg venous ulcers. The patient reportedly has been wearing a larger compression stocking due to the recommended size being too tight. The patient states she's been taking her diuretic is prescribed and does not report pain or drainage associated with the bilateral lower leg venous ulcers. She is also on doxycycline now for the staph cultured from her right leg ulcer last visit. 03/23/16. Seen by Dr. Zavala. The staff report a new anterior right lower leg ulcer today however the patient is unaware of this issue. She does not report pain at the site nor at the site of the more lateral/posterior chronic non-pressure ulcer. She states she's wearing her compression stockings however staff note that they appear to be quite dirty. 03/02/16. Seen by Dr. Zavala. The patient does not report pain or significant drainage associated with the chronic right lower leg venous ulcer over the past week. She states that she is compliant in terms of taking her diuretic and wearing compression stockings although she states she did not take her diuretic prior to her appointment today. 02/24/16. Seen by Dr. Zavala. The patient does not report pain or significant drainage associated with the chronic right lower leg venous ulcer over the past week. 02/10/16. Seen by Dr. Zavala. The patient does not report pain or significant drainage associated with the chronic right lower leg venous ulcer and she states she's wearing her compression stocking and taking her diuretic as recommended to address the severe chronic venous hypertension in both leg. She states she's still taking Bactrim, and has been taking it as scheduled, despite the fact this should have run out last week. 02/03/16. Seen by Dr. Zavala. The patient does not report pain or significant drainage associated with the chronic right lower leg venous ulcer and she states she's wearing her compression stocking and taking her diuretic as recommended to address the severe chronic venous hypertension in both legs. She also continues on Bactrim for the recent MRSA positive wound culture and does not report adverse side effects. 01/27/16. Seen by Dr. aZvala. The patient does not report pain or significant drainage associated with the chronic right lower leg venous ulcer and she states she's wearing her compression stocking and taking her diuretic as recommended to address the severe chronic venous hypertension in both legs. She also continues on Bactrim for the recent MRSA and Enterobacter positive wound culture without reporting adverse side effects. 01/20/16. Seen by Dr. Zavala. The patient does not report pain or significant drainage associated with the chronic right lower leg venous ulcer and she states she's wearing her compression stocking and taking her diuretic as recommended to address the severe chronic venous hypertension in both legs. 01/13/16. Seen by Dr. Zavala. The patient does not report pain or significant drainage associated with the chronic right lower leg venous ulcer and she states she's wearing her compression stocking and taking her diuretic as recommended to address the severe chronic venous hypertension in both legs. She does not report pain or recurrence of cellulitis in the left lower leg that was recently treated during a hospital admission. 01/06/16. Seen by Dr. Zavala. [facility] admission for severe left lower leg cellulitis. She feels this has resolved and she does not report significant drainage associated with remaining chronic right lower leg venous ulcer. She was treated with IV antibiotics for the cellulitis and has been on her diuretic as prescribed to address the significant bilateral chronic venous hypertension. 12/16/15. Seen by Dr. Zavala. The patient presents with her daughter today who's very concerned her mother has been having 'flu-like' symptoms and feeling quite unwell the past couple of days. The patient reports increased redness and swelling in the left lower leg along with a subjective fever. The patient does not report a cough or symptoms unrelated to her left lower leg at this time. 12/09/15. Seen by Dr. Zavala. The patient presents with a few new venous ulcers over the right lower leg. She states she's not wearing her compression stocking because she was advised as such. She's been placing a Xeroform dressing over the ulcers although we recommended Exudry. She also states she did not take her diuretic today but has been taking it as prescribed otherwise. She does not report pain associated with the right lower leg venous ulcers nor fevers or feeling unwell. 12/02/15. Seen by Dr. Zavala. The patient does not report pain or increase drainage associated with her chronic right lower leg venous ulcers over the past week. 11/11/15. Seen by Dr. Zavala. The patient states she's wearing her compression stockings and taking her diuretic as prescribed. She does not report pain or drainage associated with the chronic bilateral lower leg venous ulcers. 11/04/15. Seen by Dr. Zavala. The patient does not report significant drainage or pain associated with the bilateral venous ulcers over the past week. She's taking her diuretic as prescribed and wearing compression stockings as recommended. 10/28/15. Seen by Dr. Zaavla. The patient does not report pain or significant drainage associated with the right lower leg venous ulcer in the past week. She states she's wearing her compression stockings as recommended. She's also been taking her antibiotic is prescribed to treat the right lower leg wound infection. 10/21/[address] Zavala. The patient does not report pain or significant drainage associated with the bilateral venous ulcers and states she's wearing her compression stockings and taking her diuretic as directed. Her wound culture from the last visit grew Enterobacter and Proteus and she's not current taking oral antibiotics. 10/14/[address] Zavala. The patient feels her bilateral leg swelling is decreasing and she states she remain compliant with her diuretic therapy and wearing of compression stockings to treat chronic venous hypertension and associated multiple bilateral venous ulcers. She's applying gentamicin ointment to the ulcers to treat the recent Proteus and Enterobacter positive wound culture and she does not report significant pain or drainage associated with any of the ulcers. 10/07/[address] Zavala. The patient reports continued drainage associated with the bilateral lower leg venous ulcers. She also reports minimal pain associated with the right anterior lower leg ulcer. She's not wearing her compression stockings daily as recommended and skips a dose of Lasix intermittently. 09/30/[address] Zavala. The patient reports minimal pain and drainage associated with the chronic right and left lower leg venous ulcers over the past week. 09/23/15 Seen by Elliot Hernandez PA-C. The patient reports stable drainage from her lower leg ulcers. 09/16/[address] Zavala. The patient continues to report swelling and erythema of the right lower leg and some mild discomfort associated with the distal venous ulcer. She's wearing compression stockings as recommended to treat the chronic venous hypertension and she's completed a course of cefdinir within the last week for a polymicrobial wound culture and she does no report adverse side effects. She does not report fever or feeling unwell in general otherwise. 09/09/[address] Zavala. The patient states her right lower leg pain is improving and she continues on cefdinir for the recent Staph and Proteus positive wound culture. She also states she's wearing he compression stockings as recommended. 09/02/[address] Zavala. The patient reports persistent swelling and redness of the right lower leg in the periwound areas and states she continues to take her antibiotics although she should have completed her course after her last visit. Her recent wound culture grew Proteus and MSSA. She does not report significant drainage from the bilateral lower leg venous ulcers and is wearing her compression stockings as recommended. 08/26/[address] Zavala. The patient does not report significant pain or drainage associated with her bilateral lower leg venous ulcers and she's now on cefdinir for a Staph and Proteus positive wound culture taken at the last visit. She feels her leg swelling and redness have improved and she's started taking her diuretic again as recommended. She's not yet wearing her compression stockings however. 08/19/[address] Zavala. The patient returns to clinic reporting new ulcers over the bilateral lower legs She reports increased swelling and redness of the right lower leg starting about two weeks ago but no fever or associated pain. She also admits to not taking her Lasix as scheduled due to urinary incontinence issues and has been unable to apply her compression stockings due to the increased swelling. 05/27/[address] Zavala. The patient does not report significant drainage from her bilateral lower leg venous ulcers and she's wearing compression stockings and taking Lasix as recommended. 05/13/[address] Zavala. The patient's weight has increased by 7 lbs since her last visit and the staff report new venous ulcers over the lower legs. The patient states she missed her lasix dosage the past two days as well but has been wearing her compression stockings daily. 04/22/[address] Zavala. The patient does not report any new leg ulcers nor significant drainage or pain from the previously documented bilateral lower leg venous ulcers. 04/15/[address] Zavala. The staff report a new left posterior left lower leg ulcer however the patient does not know how this may have occurred and states it is not painful. In fact she does not report significant drainage or pain associated with any of her bilateral lower leg venous ulcers. 04/01/[address] Zavala. The patient reports a new right anterior lower leg ulcer that she feels occurred as an abrasion from the Tetragrip compression stocking. She remains compliant with compression therapy to treat her chronic venous hypertension and bilateral lower leg venous ulcers and does not report significant pain or drainage from any. 03/18/[address] Zavala. The patient does not report any new ulcers nor significant drainage or pain associated with the chronic bilateral lower leg venous ulcers. 03/10/[address] Zavala. The patient reports a new ulcer on the right lower leg but does not report trauma to the area. She states she's wearing her compression stockings as recommended. She does not report pain or significant drainage from the bilateral lower leg chronic venous ulcers and states she's compliant with her diuretic therapy which has been treating her leg edema. 03/04/[address] Zavala. The patient reports new ulcers over both lower legs but does not recall when in the past week they occurred nor any inciting events. She continues to compression stockings as recommended for chronic venous hypertension and does not report significant pain or drainage associated with any of the venous ulcers. 02/18/[address] Zavala. The patient reports a new ulcer over the anterior right lower leg the was first noticed yesterday when taking off her compression stocking. It started as a blister and she states it's not painful. She also states she's taking her diuretic as prescribed. 01/28/[address] Zavala. The patient does not report any problems regarding her right lower leg venous ulcer and she states she's wearing her compression stockings and taking her diuretic as prescribed. 01/14/[address] Zavala. The patient does not report significant drainage or pain associated with the bilateral lower leg venous ulcers. She states she's been compliant with her diuretic therapy and compression stockings and her weight is unchanged from last week. 01/07/[address] Zavala. The patient does not report drainage or pain associated with her bilateral lower leg venous ulcers and she was able to wear her compression stockings as recommended. She also reports being compliant with her diuretic therapy. 12/31/[address] Zavala. The patient was recently discharged from the hospital following treatment for left leg cellulitis. She feels the swelling and erythema are much improved and she's completed her course of antibiotics. She has recurrence of venous ulcers over both lower legs and reports moderate drainage but no pain. She's also reports being compliant with her diuretic therapy but has not been wearing compression stockings as we've recommended repeatedly in the past. 09/18/[address] Zavala. The patient has a fever of 101.9 today and complains only of some shortness of breath. She does not report increased swelling, pain, or drainage associated with her bilateral lower leg venous ulcers and she's currently not on systemic antibiotics. 09/10/[address] Zavala. The patient states she started taking her lasix as prescribed and feels her leg swelling is decreasing. She does not report increased drainage from the bilateral lower extremity venous ulcers and is using only topical gentamicin ointment. She states she's wearing her compression stockings during the day as recommended. She's also drinking 1-2 Ensure protein drinks daily to address her protein calorie malnutrition. 09/03/[address] Zavala. The patient does not report fever or chills but admits to being noncompliant with her diuretic therapy. Her weight is up 13 lbs in the past two weeks. She also reports a rash after starting her ampicllin and stopped using it on Sunday. She also states she's drinking one Ensure daily to address her protein calorie malnutrition. 08/27/[address] Zavala. The patient has been wearing her Tetragrips to the level of the ankles as recommended. She's taking ampicillin for an Enterococcus positive wound culture reported on 08/21/14. She does not report pain or increased drainage from the venous ulcers. 08/20/[address] Zavala. The patient states she's not comfortable wearing the compression wraps and they tend to slip down her legs. She does not report pain or drainage from the bilateral lower leg venous ulcer sites and states she's much prefer using her compression stockings instead of wraps. She also continues on doxycycline and does not report adverse side effects. 08/11/14 Seen by Elliot Hernandez PA-C. The patient reports that her wraps slid down her legs again and she finds them uncomfortable and difficult to comply with. She was able to find her old Juxtalite compression stocking for her left leg only and believes her other one is lost. She also reports that she has previously used the same stocking, on both legs by alternating the application of the stockings. 07/30/14 The patient tolerated the compression wraps without difficulty and they were able to stay in place until her appointment today. She continues on doxycycline and states she has no pain associated with the leg ulcers. 07/28/14 The patient tolerated the compression wraps without difficulty and feels her bilateral lower leg ulcers are much improved. She does not report pain or increased drainage and continues on doxycycline. 07/23/14 The patient feels her leg swelling is increasing somewhat and states she wears her compression stockings most days. She does not report increase pain or drainage associated with her bilateral lower leg ulcers and she continues on doxycycline for cellulitis in the lower legs. Of note, her prealbumin was 13.7 in early June and she's was advised to drink and Ensure daily at the time. In regards to her weight it's been fluctuating recently which probably has more to do with water retention than nutrition. 07/16/14 The patient feels the drainage from her leg ulcers has decreased considerably since her last visit and she's remains compliant with her antibiotic therapy along with wearing her compression stockings as recommended. 07/09/14 The patient reports decreased pain and drainage from her venous leg ulcers. She has been compliant with her doxycycline and tetra boilers inspector compression. Her diuretics have not been changed. 07/02/14 The patient has two new ulcers on her lower legs today and is unclear as to whether she's been wearing compression stockings at home. Of note, her compression wraps have not stayed in place in the past due to the significant narrowing of her legs below the calf muscles. She also states she's on a diuretic although I do not see one on her recent discharge medication list. She' s had a 10 lb weight gain over the past 2 weeks. 06/26/14 The patient returns to the clinic with new lower leg wounds which she states were first noticed a couple of days ago but she does not recall injury to the sites. She states she' s been wearing her compression stockings as recommended. Of note, her prealbumin on 06/15/14 was 13.7. 06/17/14 The patient feels her leg swelling and ulcers are much improved and does not report increased drainage or pain. 06/10/14 The patient does not report any new issues regarding her leg ulcers however she does have a number of new wounds on the lower legs including a pressure ulcer on the left heal. She's also off of antibiotics now with no reported fever or increase in drainage. The dressings on the left leg were noted to be dried and adherent to the underlying ulcers. 06/03/14 The patient was recently discharged to [facility] from [facility] following treatment for severe left leg cellulitis an bilateral venous ulcers. She as found to have considerable fecal material over both lower legs and her wound culture grew on streptococcus. She continues on IV antibiotics and feels the leg pain is much improved. ____ Patient admitted to hospital 2 weeks ago for cellulitis in her right leg. Over ten excoriated areas on right leg, and very swollen. 08/15/12 everything went ok with the wraps. 08/19/12 Dressing came off last night. Tubigrip on 08/27/12 Arrives without tubigrip on legs. States has been wearing but not this am. Has scattered superficial ulcers over lower right leg. States been using dry skin cream. Had dressings from last , [address] mid tibia 09/03 Patient arrived to clinic with wrap intact on right leg and medigrip on left leg. States she is having no pain and that legs seem to be doing fine. 03/07/13- Patient is being seen by us today because she had cellulitis in her left leg, was admitted into the hospital on 02/20/13 and discharged on 02/28/13. Is now residing at [facility]. Her leg has cleared up, scattered areas of erythema and some excoriations are present. Edema measurements are similar to patient's last visit. 03/28/13 Pt states she has been wearing compression stockings at home but isn't wearing them today. No new concerns or complaints. 05/02/13 has been applying cream qOday and tetrigrip stockings. now has 4 areas of wounds to right lower leg. has been taking antibiotic as prescribed 05/14/13 Dressing being changed every other day. No problems or concerns. Wearing tetragrip on right leg but was cutting circulation off in left leg so patient was is not wearing it anymore 05/21/13 Pt took dressings off this am but did not replace with a fresh dressing. PT has tetra boilers inspector to right leg only.05/28/13 Pt states she still has a rash on her abdomen that bleeds a little. 06/04/13 Dressing being changed daily. No problems or concerns 06/11/13 Pt states dressing changes going ok at home.Pt states drainage from abdominal wound has decreased and she thinks the rash around belly button has cleared. 06/18/13 Pt states she thinks things are going well. Umbillicus dressing not preformed as instructed and two pieces of foam found in umbillicus. Increase in drainage and pt states it was changed yesterday. Increased odor. 06/23/13- No new problems or concernss. Changing abdomen dressing about every other day, states no problems with dressing changes. 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 [employer] Past Medical History This information was obtained from the patient Patient has a medical history of: Peripheral neuropathy Necrotizing fasciitis Childhood rheumatic fever Chronic venous hypertension (with ulcer and inflammation; bilateral lower legs; Enterococcus and Diptheroids positive culture 08/21/14) Protein calorie malnutrition - 06/15/2014 Complaints and Symptoms This information was obtained from the patient Patient complains of: General Notes: I have reviewed and concur with the Review of Systems and Past Family Social History documents completed by the clinician, I have reviewed and concur with the Wound Assessment document completed by the clinician Cardiovascular (Central/Peripheral): Lower extremity (leg) swelling Integumentary (Hair/Skin/Nails): Open Sore Musculoskeletal: Assistive Devices Prior Wound History: Drainage, Erythema, Pain Patient denies complaints or symptoms related to: Cardiovascular (Central/Peripheral): Lower extremity (leg) resting pain Constitutional Symptoms (General Health): Chills, Fever, Marked Weight Change Ear/Nose/Mouth/Throat: Hearing Loss / Aid Gastrointestinal (GI): Nausea / Vomiting, Stomach/abdominal pain Hematologic/Lymphatic: Bleeding / Clotting Disorders, Bleeding Tendency Neurological: Loss of Protective Sensation Prior Wound History: Bleeding, Malodor Psychiatric: Memory Loss Respiratory: Oxygen Use, Shortness of Breath Constitutional Vital signs reviewed and noted. Well developed, lucid, and in no acute distress. . Height/Length: 65 in (165.1 cm), Weight: 290.1 lbs (131.86 kgs), BMI: 48.3, Temperature: 97.7 ?F ( 36.5 ?C), Pulse: 74 bpm, Respiratory Rate: 18 breaths/min, Blood Pressure: 152/73 mmHg, Pulse Oximetry: 97 %. Ears, Nose, Mouth, and Throat: Grossly intact. Respiratory: No respiratory distress. Even respirations and without use of accessory muscles.. Integumentary (Hair, Skin) Refer to appropriate clinician wound documentation for this visit; ulcer extends to subcutaneous fat layer. . Wound #80 Right, Lateral Leg is a chronic Full Thickness Venous Ulcer and has received a status of Not Healed. Subsequent wound encounter measurements are 0.8cm length x 0.5cm width x 0.1cm depth, with an area of 0.4 sq cm and a volume of 0.04 cubic cm. No tunneling has been noted. No sinus tract has been noted. No undermining has been noted. There is a moderate amount of sero-sanguineous drainage noted which has no odor. The patient reports a wound pain of level 0/ 10. The wound margin is attached. Wound bed has No epithelialization, No eschar, Yes slough, Yes bright red, firm granulation. The periwound skin moisture is normal. The periwound skin color is normal. The periwound skin exhibited: Edema, Induration. The periwound skin did not exhibit: Brawny Induration, Excoriation, Callus, Crepitus, Fluctuance, Friable, Rash. The temperature of the periwound skin is WNL. Periwound skin does not exhibit signs or symptoms of infection. Local Pulse is Normal. Wound #83 Left, Posterior Leg - lower is an acute Partial Thickness Venous Ulcer and has received a status of Not Healed. Subsequent wound encounter measurements are 0.5cm length x 0.3cm width x 0.1cm depth, with an area of 0.15 sq cm and a volume of 0.015 cubic cm. No tunneling has been noted. No sinus tract has been noted. No undermining has been noted. There is a small amount of sero- sanguineous drainage noted which has no odor. The patient reports a wound pain of level 0/10. The wound margin is attached. Wound bed has Yes epithelialization, No eschar, Yes slough, Yes bright red, firm granulation. The periwound skin moisture is normal. The periwound skin color is normal. The periwound skin exhibited: Edema. The periwound skin did not exhibit: Brawny Induration, Excoriation, Induration, Callus, Crepitus, Fluctuance, Friable, Rash. The temperature of the periwound skin is WNL. Periwound skin does not exhibit signs or symptoms of infection. Local Pulse is Palpable. Wound #85 Right, Posterior Leg is a Full Thickness Venous Ulcer and has received a status of Not Healed. Subsequent wound encounter measurements are 0.7cm length x 0.8cm width x 0.1cm depth, with an area of 0.56 sq cm and a volume of 0.056 cubic cm. No tunneling has been noted. No sinus tract has been noted. No undermining has been noted. There is a small amount of sero- sanguineous drainage noted which has no odor. The patient reports a wound pain of level 1/10. The wound margin is attached. Wound bed has No epithelialization, No eschar, Yes slough, Yes pink, firm granulation. The periwound skin moisture is normal. The periwound skin color is normal. The periwound skin exhibited: Edema. The periwound skin did not exhibit: Brawny Induration, Excoriation, Induration, Callus, Crepitus, Fluctuance, Friable, Rash. The temperature of the periwound skin is WNL. Periwound skin does not exhibit signs or symptoms of infection. Local Pulse is Doppler. Psychiatric: Judgement and insight: Normal affect with normal thought pattern. Alert and oriented 3/3. Memory grossly intact.. Normal affect. Mood appropriate.. ASSESSMENT ICD-10 (Encounter Diagnosis) I87.333 - Chronic venous hypertension (idiopathic) with ulcer and inflammation of bilateral lower extremity (Encounter Diagnosis) L97.812 - Non-pressure chronic ulcer of other part of right lower leg with fat layer exposed (Encounter Diagnosis) L97.811 - Non-pressure chronic ulcer of other part of right lower leg limited to breakdown of skin PROCEDURES Wound #80 Wound #80 (Venous Ulcer) is located on the right, lateral leg. A skin/ subcutaneous tissue level surgical debridement with a total area debrided of 0.4 sq cm was performed by Warren Hernandez PA. Subcutaneous was removed along with devitalized tissue: exudate and slough. The following instrument(s) were used: curette. Pain control was achieved using 4% Lido. A time out was conducted prior to the start of the procedure. A minimal amount of bleeding was controlled with n/a. The procedure was tolerated well with a pain level of 0 throughout and a pain level of 0 following the procedure. Post Debridement Measurements: 0.8cm length x 0.5cm width x 0.2cm depth; with an area of 0.4 sq cm and a volume of 0.08 cubic cm; Wound #80 (Venous Ulcer) is located on the right, lateral leg. A Multilayer Compression procedure was performed by Oksana Lyman RN. General Notes: Coban 2 layer compression wrap. Wound #83 Wound #83 (Venous Ulcer) is located on the left, posterior leg - lower. A Multilayer Compression procedure was performed by Oksana Lyman RN. General Notes: Coban 2 layer compression wrap. Wound #85 Wound #85 (Venous Ulcer) is located on the right, posterior leg. A selective debridement with a total area debrided of 0.56 sq cm was performed by Warren Hernandez PA. to remove devitalized tissue: exudate and slough. The following instrument(s) were used: curette. Pain control was achieved using 4% Lido. A time out was conducted prior to the start of the procedure. A minimal amount of bleeding was controlled with n/a. The procedure was tolerated well with a pain level of 0 throughout and a pain level of 0 following the procedure. Post Debridement Measurements: 0.7cm length x 0.8cm width x 0.1cm depth; with an area of 0.56 sq cm and a volume of 0.056 cubic cm; Additional Information Muscle fascia or bone removed and sent to pathology?: No PLAN Wound Orders: Wound #80 Right, Lateral Leg Anesthetic Topical Xylocaine to wound bed. - In clinic only. Cleanse Wound: - Normal saline and gauze. May Shower. - Please use cast protector when showering. Topical Treatments Moisturizing lotion to surround skin. - Triamcinolone to chantal wound skin Dressings Primary dressing: - Bordered Foam. Cast padding to fill lower leg. UNNA layers to hold cast padding in place and below knee to hold up wrap. Cover and secure with: - Foam to cover all wounds. Coban 2 Layer compression wraps to both legs. Change Dressing: - Leave in place until next visit. Wound #83 Left, Posterior Leg - lower Anesthetic Topical Xylocaine to wound bed. - In clinic only. Cleanser Cleanse Wound: - Normal saline and gauze. May Shower. - Please use cast protector when showering. Topical Treatments Moisturizing lotion to surround skin. - Triamcinolone to chantal wound skin Dressings Primary dressing: - Bordered Foam. Cast padding to fill lower leg. UNNA layers to hold cast padding in place and below knee to hold up wrap. Cover and secure with: - Foam to cover all wounds. Coban 2 Layer compression wraps to both legs. Change Dressing: - Leave in place until next visit. Wound #85 Right, Posterior Leg Anesthetic Topical Xylocaine to wound bed. - In clinic only. Cleanser Cleanse Wound: - Normal saline and gauze. May Shower. - Please use cast protector when showering. Topical Treatments Moisturizing lotion to surround skin. - Triamcinolone to chantal wound skin Dressings Primary dressing: - Bordered Foam. Cast padding to fill lower leg. UNNA layers to hold cast padding in place and below knee to hold up wrap. Cover and secure with: - Foam to cover all wounds. Coban 2 Layer compression wraps to both legs. Change Dressing: - Leave in place until next visit. Additional Orders: Compression/Edema Control Multi Layer Wrap: - Coban 2 Layer compression wraps to both legs. Follow-Up Appointments Return Appointment: - - One week. Other information: If you develop fever, chills, increased pain, drainage, redness or swelling please call our office. If after hours, respond to the ER. Should you experience any significant changes in your wound(s) or have any questions regarding your home care instructions please contact the wound center @ [phone]. If after hours, contact your primary care physician or go to the hospital emergency room. Scribing Attestation I attest, as the nurse, that I scribed these orders for the physician. I've reviewed the clinician's documentation and agree with the evaluation and plan as written. In addition the patient's ulcers demonstrate evidence of non-viable devitalized tissue which benefits from sharp debridement. Electronic Signature(s) Signed By: Date: Elliot Hernandez 10/08/2017 12:48:23 Entered By: Elliot Hernandez on 10/08/2017 10:37:19
== END ==
PROVIDERS: Family Provider Internal Medicine; PCP Internal Medicine; Visit Provider Physician Assistant
DX: I87.333 Chronic venous hypertension (idiopathic) with ulcer and inflammation of bilateral lower extremity (principal); L97.812 Non-pressure chronic ulcer of other part of right lower leg with fat layer exposed; L97.822 Non-pressure chronic ulcer of other part of left lower leg with fat layer exposed
CPT/HCPCS: 11042; 29581

== ENCOUNTER → 2017-10-11 10:16 | Outpatient (CLI) | payer MEDICARE, OTHER, SELFPAY ==
--- NOTE | 2017-10-11 | OV.WND_ITS ---
Progress Note Details Patient Name: Tiffanie Gomez Patient Number: [id number] PatientPatientDate: 10/11/2017 Clinician: Joann Jordan Clinician Cosigner: Melissa Warren Physician / Gage Designer: William Zavala SUBJECTIVE Chief Complaint This information was obtained from the patient Venous ulcers to bilateral lower extremities. Allergies Oxycodone (Reaction: severe mental change), Morphine (Reaction: mental change), Hydromorphone (Reaction: mental change), ampicillin (Severity: Severe, Reaction: Itchy rash) HPI This information was obtained from the patient 10/11/17. Seen by Dr. Zavala. The patient does not report pain or other acute issues regarding the bilateral venous ulcers and she's tolerating compression therapy that's treating bilateral chronic venous hypertension however she continues to cut the tops of the wraps due to itching and rubbing. 10/04/17. Seen by Elliot Hernandez PA-C. The patient reports stable drainage from her left lower leg venous ulcers. 09/27/17. Seen by Dr. Zavala. The patient reports significant itching associated with the left lower leg compression wrap and has again cut the top portion of the wrap. She's also not been taking her diuretic as prescribed the past few days and staff feel the bilateral lower leg edema has increased considerably since her last visit. Otherwise there's no reported increasing in drainage or pain associated with the bilateral lower leg venous ulcers. 09/20/17. Seen by Dr. Zavala. The patient has tolerated compression therapy that's treating severe bilateral lower leg chronic venous hypertension and associated venous ulcers and staff do not report significant drainage on the dressings. 09/13/17. Seen by Dr. Zavala. The patient has tolerated compression therapy that' s treating severe bilateral lower leg chronic venous hypertension and associated venous ulcers and staff do not report significant drainage on the dressings. 09/06/17. Seen by Dr. Zavala. The patient does not report pain associated with bilateral lower leg venous ulcers since her last visit and she tolerated compression therapy that treating severe bilateral chronic venous hypertension without difficulty. 08/30/17. Seen by Dr. Zavala. The patient does not report pain associated with bilateral lower leg venous ulcers since her last visit and she tolerated compression therapy that treating severe bilateral chronic venous hypertension without difficulty. 08/23/17. Seen by Dr. Zavala. The patient does not report increased drainage or pain associated with bilateral lower leg venous ulcers since her last visit. She reports that she arrived today without dressings over he ulcers however. Her wound culture from the last visit was unremarkable. 08/16/17. Seen by Dr. Zavala. The patient does not report increased drainage or pain associated with bilateral lower leg venous ulcers since her last visit. 08/09/17. Seen by Dr. Zavala. The patient does not report increased drainage or pain associated with bilateral lower leg venous ulcers since her last visit. 08/02/17. Seen by Dr. Zavala. The patient returns for clinic following a recent admission to the hospital for bilateral lower extremity cellulitis. She seen by her primary care provider earlier this week who increased her Lasix from 40 mg 80 mg daily. Despite this she reports significant leg swelling and dicloxacillin for the cellulitis. 07/05/17. Seen by Dr. Zavala. The patient does not report increased drainage or pain associated with bilateral lower leg venous ulcers since her last visit. She states that she is wearing and changing her compression stockings although the nurses note that they were dated at the last visit and do not appear to be changed since then. 06/28/17. Seen by Elliot Hernandez PA-C. The patient reports decreased drainage from her lower extremity ulcers. 06/21/17. Seen by Elliot Hernandez PA-C. The patient reports that part of her leg wraps fell down but the portion near her ankles and feet stayed in place. She does not report increased drainage from her lower extremity venous ulcers. 06/14/17. Seen by Elliot Hernandez PA-C. The patient reports no increase in drainage from her bilateral lower extremity ulcers. 06/07/17. Seen by Elliot Hernandez PA-C. The patient reports increased pain in her left foot and increased drainage from her left foot ulcer. 05/31/17. Seen by Dr. Zavala. The patient was recently discharged from the hospital following an admission for left lower leg and left foot cellulitis. She was treated with IV antibiotics and is now on oral levofloxacin and cefdinir. She was also heavily diuresed and has lost 16 pounds from her last visit. She does not report fevers, feeling unwell, nor adverse side effects of her antibiotics. 05/24/17. Seen by Elliot Hernandez PA-C. The patient reports that she has had a low grade fever 05/17/17. Seen by Elliot Hernandez PA-C. The patient reports decreased drainage from her right lower leg venous ulcers since her last evaluation. 05/10/17. Seen by Elliot Hernandez PA-C. The patient reports stable drainage from her right lower leg venous ulcers. When we noted a new ulcer, more proximal than the existing ones, she stated that this new ulcer has been continuously present for a few weeks without worsening or improving. Associated drainage from this new ulcer has been moderate with minimal, non-radiating pain noted. 05/03/17. Seen by Dr. Zavala. The patient does not report increased drainage associated with the chronic right lower leg venous ulcers since her last visit. 04/26/17. Seen by Dr. Zavala. The patient does not report increased drainage associated with the chronic right lower leg venous ulcers since her last visit and she is applying topical antibiotic to treat the MSSA positive wound culture as recommended. 04/19/17. Seen by Dr. Zavala. The patient does not report increased drainage associated with the chronic right lower leg venous ulcers since her last visit. 04/12/17. Seen by Dr. Zavala. The patient does not report pain or increased drainage associated with chronic right lower leg venous ulcers since her last visit. Recent wound culture grew MSSA plus group B streptococcus and Buttiauxella agrestis which is a gram-negative mi. She states she is taking her diuretic, applying topical gentamicin to the wound base, and wearing compression stockings to manage chronic venous hypertension as recommended. 04/05/17. Seen by Dr. Zavala. The patient does not report pain or increased drainage associated with chronic right lower leg venous ulcers since her last visit. 03/29/17. Seen by Dr. Zavala. The patient does not report pain or increased drainage associated with chronic right lower leg venous ulcers since her last visit. 03/22/17. Seen by Dr. Zavala. The patient does not report pain nor significant drainage associated with chronic right lower leg venous ulcer since her last visit. The staff report some new ulcers however over the right lower leg today. 03/15/17. Seen by Dr. Zavala. The patient does not report pain nor significant drainage associated with chronic right lower leg venous ulcer since her last visit and she's wearing her compression stocking as recommended that's treating right lower leg chronic venous hypertension. Her dressing has been in place since Sunday and the staff report some new periwound erythema and possible new areas of skin breakdown. 02/22/17. Seen by Dr. Zavala. The patient does not report pain nor significant drainage associated with chronic right lower leg venous ulcer since her last visit. 02/15/17. Seen by Dr. Zavala. The patient does not report pain nor significant drainage associated with chronic right lower leg venous ulcer since her last visit. 02/08/17. Seen by Elliot Hernandez PA-C. The patient reports she has been unable to change her dressings on her lower legs and has been unable to bathe. Her dressings have remained in place for >1 week. She is hoping to have home health come and help her with dressing changes. Of note, she does not leave the house, except for doctors appointments, and when she does leave it is with great difficulty. 01/11/17. Seen by Dr. Zavala. The patient does not report pain nor significant drainage associated with chronic right lower leg venous ulcer since her last visit. 01/04/17. Seen by Elliot Hernandez PA-C. The patient reports no increase in drainage from her lower extremity ulcers since her last evaluation. 12/28/16. Seen by Elliot Hernandez PA-C. The patient reports decreased drainage from her lower extremity ulcers. 12/21/16. Seen by Elliot Hernandez PA-C. The patient reports decreased drainage from her lower extremity ulcers since her last evaluation. 12/14/16. Seen by Elliot Hernandez PA-C. The patient reports decreased drainage from her lower extremity ulcers. 12/07/16. Seen by Dr. Zavala. The patient does not report significant drainage or pain associated with the chronic right lateral lower leg venous ulcer. The staff however report a new ulcer on the anterior right lower leg today. 11/30/16. Seen by Elliot Hernandez PA-C. The patient reports decreased drainage from her lower leg venous ulcers. 11/23/16. Seen by Dr. Zavala. The patient does not report significant drainage or pain associated with the chronic right lateral lower leg venous ulcer. The staff do report a new ulcer on the posterior left lower leg today. The patient is now being seen at the end of the day and her daughter is accompanying her due to last week's episode of flea infestation and the need for infectious control to be involved in her care plan. Adult Protective Services were also alerted over the past week however there is no feedback yet regarding their involvement. 11/16/16. Seen by Elliot Hernandez PA-C. The patient reports no increase in drainage from her right lower leg venous ulcers. Nursing reports that approximately 20-30 fleas jumped off of the patient's legs including from under her wound dressing, when it was removed. The patient denies having fleas. 11/09/16. Seen by Elliot Hernandez PA-C. The patient reports continued drainage from her right lower leg venous ulcers despite topical antimicrobial therapy. Her recent culture grees pseudomonas stutzeri with multiple sensitivities. 11/02/16. Seen by Dr. Zavala. The patient does not report increased pain associated with the chronic right lower leg venous ulcers however staff report increased colored drainage on her dressings. She does not report fevers or feeling unwell and is not currently on antibiotics. 10/24/16. Seen by Dr. Zavala. The patient does not report increased drainage or pain associated with the right lower leg venous ulcers since her last visit. 10/21/16. Seen by Elliot Hernandez PA-C. The patient's wound culture grew staph aureus. The patient reports stable drainage from her right lower leg venous ulcer. 10/12/16. Seen by Elliot Hernandez PA-C. The patient returns to us after a hospitalization and SNF stay for cellulitis of her right lower leg. Currently she has home health assisting her with her dressing changes for her right lower leg venous ulcer and they have recommended she present to us for more specialized care. 08/23/16. Seen by Dr. Zavala. The patient was unable to start her IV antibiotics that were prescribed at her visit last week due to financial limitations. She is prescribed cefepime at that time to treat the refractory and multidrug-resistant pseudomonas positive wound culture. She reports increased redness in the leg but no significant pain, fevers, or feeling unwell. 08/10/16. Seen by Dr. Zavala. The staff report significant drainage and malodor associated with the chronic right lower leg non-pressure ulcers and the patient continues on antibiotics for the recent Proteus and Enterococcus positive culture but there's a discrepancy on how many days she has left to take. She does not report pain in the leg, fevers, or feeling unwell and states she's changing the dressing twice daily. 07/26/16. Seen by Dr. Zavala. The patient continues on dual antibiotic therapy for the recent Proteus and Entercoccus positive wound cultures taken from the chronic right lower leg venous ulcers without reporting adverse side effects. She feels the larger posterior right lower leg ulcer continues to produce significant drainage but she does not report pain at the site. She states she's wearing her compression stocking and taking her diuretics as prescribed despite showing increased swelling in the leg today. She does not report fevers or feeling unwell in general. 07/20/16. Seen by Dr. Zavala. The patient does not report pain continues report drainage associated with the right chronic venous ulcers. She continues on dual antibiotic therapy without reporting adverse side effects for the recent Proteus and enterococcus positive wound cultures and does not report adverse side effects. She does not report fevers or feeling unwell in general. 07/13/16. Seen by Dr. Zavala. The patient does not report pain continues report drainage associated with the right chronic venous ulcers. She continues on dual antibiotic therapy for the recent Proteus and enterococcus positive wound cultures and does not report adverse side effects. 07/06/16. Seen by Dr. Zavala. The patient does not report pain or increased drainage associated with the chronic right lower leg venous ulcers nor right 3rd toe trauma wound. The staff however continue to report some blue-green drainage from the posterior ulcer. She states she is applying gentamicin ointment topically to the ulcers and is now off of oral antibiotics. She does not report fevers or feeling unwell. 06/29/16. Seen by Dr. Zavala. The patient continues applying topical gentamicin ointment for the Pseudomonas positive culture taken from the right lower leg venous ulcer. The staff continue to report a blue green drainage from the site however the patient does not report significant pain nor significant drainage or pain associated with the other right lower leg venous ulcers. 06/22/16. Seen by Dr. Zavala. The patient continues on antibiotics for the Pseudomonas positive culture taken from the right lower leg venous ulcer. The staff continue to report a blue green drainage from the site however the patient does not report significant pain nor significant drainage or pain associated with the other right lower leg venous ulcers. 06/15/16. Seen by Dr. Zavala. The patient continues on ciprofloxacin for the right lower leg ulcer infection which cultured Pseudomonas. She does not report adverse side effects and feels the drainage has decreased somewhat. The does not report pain at this nor the other lower leg venous ulcers and states she's wearing her compression stockings as recommended. 06/05/16. Seen by Elliot Hernandez PA-C. The patient presents today with 3 new ulcers on her right lower leg which began spontaneously. She has had stable drainage from her previous venous ulcers. 05/18/16. Seen by Dr. Zavala. The patient does not report drainage or pain associated with the bilateral lower leg venous ulcers since her last visit. Of note, the staff report blue/ green drainage on the dressing covering the right lower leg ulcer. 05/11/16. Seen by Dr. Zavala. The patient does not report drainage or pain associated with the bilateral lower leg venous ulcers since her last visit. She should have completed her levofloxacin however states she still has a few tablets left. Of note, she has a habit of not taking her antibiotics as prescribed. 05/04/16 Seen by Elliot Hernandez PA-C. The patient reports no drainage from her left leg venous ulcers since her last dressing change, though she reports a new area of drainage on the right lower anterior leg. 04/27/16. Seen by Dr. Zavala. The patient does not report drainage or pain associated with the bilateral lower leg venous ulcers since her last visit. She's now on levofloxacin and cefdinir for the recent polymicrobial wound culture and does not report adverse side effects, fevers, or feeling unwell in general 04/20/15. Seen by Dr. Zavala. The patient does not report drainage or pain associated with the bilateral lower leg venous ulcers since her last visit however staff report periwound erythema and drainage from most of the ulcers. Of note, she's to be wearing compression stockings to treat bilateral chronic venous hypertension but states she has not for the past day while they're being washed. 03/30/16. Seen by Dr. Zavala. The staff reports a number of new left lower leg venous ulcers. The patient reportedly has been wearing a larger compression stocking due to the recommended size being too tight. The patient states she's been taking her diuretic is prescribed and does not report pain or drainage associated with the bilateral lower leg venous ulcers. She is also on doxycycline now for the staph cultured from her right leg ulcer last visit. 03/23/16. Seen by Dr. Zavala. The staff report a new anterior right lower leg ulcer today however the patient is unaware of this issue. She does not report pain at the site nor at the site of the more lateral/posterior chronic non-pressure ulcer. She states she's wearing her compression stockings however staff note that they appear to be quite dirty. 03/02/16. Seen by Dr. Zavala. The patient does not report pain or significant drainage associated with the chronic right lower leg venous ulcer over the past week. She states that she is compliant in terms of taking her diuretic and wearing compression stockings although she states she did not take her diuretic prior to her appointment today. 02/24/16. Seen by Dr. Zavala. The patient does not report pain or significant drainage associated with the chronic right lower leg venous ulcer over the past week. 02/10/16. Seen by Dr. Zavala. The patient does not report pain or significant drainage associated with the chronic right lower leg venous ulcer and she states she's wearing her compression stocking and taking her diuretic as recommended to address the severe chronic venous hypertension in both leg. She states she's still taking Bactrim, and has been taking it as scheduled, despite the fact this should have run out last week. 02/03/16. Seen by Dr. Zavala. The patient does not report pain or significant drainage associated with the chronic right lower leg venous ulcer and she states she's wearing her compression stocking and taking her diuretic as recommended to address the severe chronic venous hypertension in both legs. She also continues on Bactrim for the recent MRSA positive wound culture and does not report adverse side effects. 01/27/16. Seen by Dr. Zavala. The patient does not report pain or significant drainage associated with the chronic right lower leg venous ulcer and she states she's wearing her compression stocking and taking her diuretic as recommended to address the severe chronic venous hypertension in both legs. She also continues on Bactrim for the recent MRSA and Enterobacter positive wound culture without reporting adverse side effects. 01/20/16. Seen by Dr. Zavala. The patient does not report pain or significant drainage associated with the chronic right lower leg venous ulcer and she states she's wearing her compression stocking and taking her diuretic as recommended to address the severe chronic venous hypertension in both legs. 01/13/16. Seen by Dr. Zavala. The patient does not report pain or significant drainage associated with the chronic right lower leg venous ulcer and she states she's wearing her compression stocking and taking her diuretic as recommended to address the severe chronic venous hypertension in both legs. She does not report pain or recurrence of cellulitis in the left lower leg that was recently treated during a hospital admission. 01/06/16. Seen by Dr. Zavala. The patient was recently discharged from detention following a hospital admission for severe left lower leg cellulitis. She feels this has resolved and she does not report significant drainage associated with remaining chronic right lower leg venous ulcer. She was treated with IV antibiotics for the cellulitis and has been on her diuretic as prescribed to address the significant bilateral chronic venous hypertension. 12/16/15. Seen by Dr. Zavala. The patient presents with her daughter today who's very concerned her mother has been having 'flu-like' symptoms and feeling quite unwell the past couple of days. The patient reports increased redness and swelling in the left lower leg along with a subjective fever. The patient does not report a cough or symptoms unrelated to her left lower leg at this time. 12/09/15. Seen by Dr. Zavala. The patient presents with a few new venous ulcers over the right lower leg. She states she's not wearing her compression stocking because she was advised as such. She's been placing a Xeroform dressing over the ulcers although we recommended Exudry. She also states she did not take her diuretic today but has been taking it as prescribed otherwise. She does not report pain associated with the right lower leg venous ulcers nor fevers or feeling unwell. 12/02/15. Seen by Dr. Zavala. The patient does not report pain or increase drainage associated with her chronic right lower leg venous ulcers over the past week. 11/11/15. Seen by Dr. Zavala. The patient states she's wearing her compression stockings and taking her diuretic as prescribed. She does not report pain or drainage associated with the chronic bilateral lower leg venous ulcers. 11/04/15. Seen by Dr. Zavala. The patient does not report significant drainage or pain associated with the bilateral venous ulcers over the past week. She's taking her diuretic as prescribed and wearing compression stockings as recommended. 10/28/15. Seen by Dr. Zavala. The patient does not report pain or significant drainage associated with the right lower leg venous ulcer in the past week. She states she's wearing her compression stockings as recommended. She's also been taking her antibiotic is prescribed to treat the right lower leg wound infection. 10/21/[address] Zavala. The patient does not report pain or significant drainage associated with the bilateral venous ulcers and states she's wearing her compression stockings and taking her diuretic as directed. Her wound culture from the last visit grew Enterobacter and Proteus and she's not current taking oral antibiotics. 10/14/[address] Zavala. The patient feels her bilateral leg swelling is decreasing and she states she remain compliant with her diuretic therapy and wearing of compression stockings to treat chronic venous hypertension and associated multiple bilateral venous ulcers. She's applying gentamicin ointment to the ulcers to treat the recent Proteus and Enterobacter positive wound culture and she does not report significant pain or drainage associated with any of the ulcers. 10/07/[address] Zavala. The patient reports continued drainage associated with the bilateral lower leg venous ulcers. She also reports minimal pain associated with the right anterior lower leg ulcer. She's not wearing her compression stockings daily as recommended and skips a dose of Lasix intermittently. 09/30/[address] Zavala. The patient reports minimal pain and drainage associated with the chronic right and left lower leg venous ulcers over the past week. 09/23/15 Seen by Elliot Hernandez PA-C. The patient reports stable drainage from her lower leg ulcers. 09/16/[address] Zavala. The patient continues to report swelling and erythema of the right lower leg and some mild discomfort associated with the distal venous ulcer. She's wearing compression stockings as recommended to treat the chronic venous hypertension and she's completed a course of cefdinir within the last week for a polymicrobial wound culture and she does no report adverse side effects. She does not report fever or feeling unwell in general otherwise. 09/09/[address] Zavala. The patient states her right lower leg pain is improving and she continues on cefdinir for the recent Staph and Proteus positive wound culture. She also states she's wearing he compression stockings as recommended. 09/02/[address] Zavala. The patient reports persistent swelling and redness of the right lower leg in the periwound areas and states she continues to take her antibiotics although she should have completed her course after her last visit. Her recent wound culture grew Proteus and MSSA. She does not report significant drainage from the bilateral lower leg venous ulcers and is wearing her compression stockings as recommended. 08/26/[address] Zavala. The patient does not report significant pain or drainage associated with her bilateral lower leg venous ulcers and she's now on cefdinir for a Staph and Proteus positive wound culture taken at the last visit. She feels her leg swelling and redness have improved and she's started taking her diuretic again as recommended. She's not yet wearing her compression stockings however. 08/19/[address] Zavala. The patient returns to clinic reporting new ulcers over the bilateral lower legs She reports increased swelling and redness of the right lower leg starting about two weeks ago but no fever or associated pain. She also admits to not taking her Lasix as scheduled due to urinary incontinence issues and has been unable to apply her compression stockings due to the increased swelling. 05/27/[address] Zavala. The patient does not report significant drainage from her bilateral lower leg venous ulcers and she's wearing compression stockings and taking Lasix as recommended. 05/13/[address] Zavala. The patient's weight has increased by 7 lbs since her last visit and the staff report new venous ulcers over the lower legs. The patient states she missed her lasix dosage the past two days as well but has been wearing her compression stockings daily. 04/22/[address] Zavala. The patient does not report any new leg ulcers nor significant drainage or pain from the previously documented bilateral lower leg venous ulcers. 04/15/[address] Zavala. The staff report a new left posterior left lower leg ulcer however the patient does not know how this may have occurred and states it is not painful. In fact she does not report significant drainage or pain associated with any of her bilateral lower leg venous ulcers. 04/01/[address] Zavala. The patient reports a new right anterior lower leg ulcer that she feels occurred as an abrasion from the Tetragrip compression stocking. She remains compliant with compression therapy to treat her chronic venous hypertension and bilateral lower leg venous ulcers and does not report significant pain or drainage from any. 03/18/[address] Zavala. The patient does not report any new ulcers nor significant drainage or pain associated with the chronic bilateral lower leg venous ulcers. 03/10/[address] Zavala. The patient reports a new ulcer on the right lower leg but does not report trauma to the area. She states she's wearing her compression stockings as recommended. She does not report pain or significant drainage from the bilateral lower leg chronic venous ulcers and states she's compliant with her diuretic therapy which has been treating her leg edema. 03/04/[address] Zavala. The patient reports new ulcers over both lower legs but does not recall when in the past week they occurred nor any inciting events. She continues to compression stockings as recommended for chronic venous hypertension and does not report significant pain or drainage associated with any of the venous ulcers. 02/18/[address] Zavala. The patient reports a new ulcer over the anterior right lower leg the was first noticed yesterday when taking off her compression stocking. It started as a blister and she states it's not painful. She also states she's taking her diuretic as prescribed. 01/28/[address] Zavala. The patient does not report any problems regarding her right lower leg venous ulcer and she states she's wearing her compression stockings and taking her diuretic as prescribed. 01/14/[address] Zavala. The patient does not report significant drainage or pain associated with the bilateral lower leg venous ulcers. She states she's been compliant with her diuretic therapy and compression stockings and her weight is unchanged from last week. 01/07/[address] Zavala. The patient does not report drainage or pain associated with her bilateral lower leg venous ulcers and she was able to wear her compression stockings as recommended. She also reports being compliant with her diuretic therapy. 12/31/[address] Zavala. The patient was recently discharged from the hospital following treatment for left leg cellulitis. She feels the swelling and erythema are much improved and she's completed her course of antibiotics. She has recurrence of venous ulcers over both lower legs and reports moderate drainage but no pain. She's also reports being compliant with her diuretic therapy but has not been wearing compression stockings as we've recommended repeatedly in the past. 09/18/[address] Zavala. The patient has a fever of 101.9 today and complains only of some shortness of breath. She does not report increased swelling, pain, or drainage associated with her bilateral lower leg venous ulcers and she's currently not on systemic antibiotics. 09/10/[address] Zavala. The patient states she started taking her lasix as prescribed and feels her leg swelling is decreasing. She does not report increased drainage from the bilateral lower extremity venous ulcers and is using only topical gentamicin ointment. She states she's wearing her compression stockings during the day as recommended. She's also drinking 1-2 Ensure protein drinks daily to address her protein calorie malnutrition. 09/03/[address] Zavala. The patient does not report fever or chills but admits to being noncompliant with her diuretic therapy. Her weight is up 13 lbs in the past two weeks. She also reports a rash after starting her ampicllin and stopped using it on Sunday. She also states she's drinking one Ensure daily to address her protein calorie malnutrition. 08/27/[address] Zavala. The patient has been wearing her Tetragrips to the level of the ankles as recommended. She's taking ampicillin for an Enterococcus positive wound culture reported on 08/21/14. She does not report pain or increased drainage from the venous ulcers. 08/20/[address] Zavala. The patient states she's not comfortable wearing the compression wraps and they tend to slip down her legs. She does not report pain or drainage from the bilateral lower leg venous ulcer sites and states she's much prefer using her compression stockings instead of wraps. She also continues on doxycycline and does not report adverse side effects. 08/11/14 Seen by Elliot Hernandez PA-C. The patient reports that her wraps slid down her legs again and she finds them uncomfortable and difficult to comply with. She was able to find her old Juxtalite compression stocking for her left leg only and believes her other one is lost. She also reports that she has previously used the same stocking, on both legs by alternating the application of the stockings. 07/30/14 The patient tolerated the compression wraps without difficulty and they were able to stay in place until her appointment today. She continues on doxycycline and states she has no pain associated with the leg ulcers. 07/28/14 The patient tolerated the compression wraps without difficulty and feels her bilateral lower leg ulcers are much improved. She does not report pain or increased drainage and continues on doxycycline. 07/23/14 The patient feels her leg swelling is increasing somewhat and states she wears her compression stockings most days. She does not report increase pain or drainage associated with her bilateral lower leg ulcers and she continues on doxycycline for cellulitis in the lower legs. Of note, her prealbumin was 13.7 in early June and she's was advised to drink and Ensure daily at the time. In regards to her weight it's been fluctuating recently which probably has more to do with water retention than nutrition. 07/16/14 The patient feels the drainage from her leg ulcers has decreased considerably since her last visit and she's remains compliant with her antibiotic therapy along with wearing her compression stockings as recommended. 07/09/14 The patient reports decreased pain and drainage from her venous leg ulcers. She has been compliant with her doxycycline and tetra structural analysis engineer compression. Her diuretics have not been changed. 07/02/14 The patient has two new ulcers on her lower legs today and is unclear as to whether she's been wearing compression stockings at home. Of note, her compression wraps have not stayed in place in the past due to the significant narrowing of her legs below the calf muscles. She also states she's on a diuretic although I do not see one on her recent discharge medication list. She' s had a 10 lb weight gain over the past 2 weeks. 06/26/14 The patient returns to the clinic with new lower leg wounds which she states were first noticed a couple of days ago but she does not recall injury to the sites. She states she' s been wearing her compression stockings as recommended. Of note, her prealbumin on 06/15/14 was 13.7. 06/17/14 The patient feels her leg swelling and ulcers are much improved and does not report increased drainage or pain. 06/10/14 The patient does not report any new issues regarding her leg ulcers however she does have a number of new wounds on the lower legs including a pressure ulcer on the left heal. She's also off of antibiotics now with no reported fever or increase in drainage. The dressings on the left leg were noted to be dried and adherent to the underlying ulcers. 06/03/14 The patient was recently discharged to [facility] from [facility] following treatment for severe left leg cellulitis an bilateral venous ulcers. She as found to have considerable fecal material over both lower legs and her wound culture grew on streptococcus. She continues on IV antibiotics and feels the leg pain is much improved. ____ Patient admitted to hospital 2 weeks ago for cellulitis in her right leg. Over ten excoriated areas on right leg, and very swollen. 08/15/12 everything went ok with the wraps. 08/19/12 Dressing came off last night. Tubigrip on 08/27/12 Arrives without tubigrip on legs. States has been wearing but not this am. Has scattered superficial ulcers over lower right leg. States been using dry skin cream. Had dressings from last , [address] mid tibia 09/03 Patient arrived to clinic with wrap intact on right leg and medigrip on left leg. States she is having no pain and that legs seem to be doing fine. 03/07/13- Patient is being seen by us today because she had cellulitis in her left leg, was admitted into the hospital on 02/20/13 and discharged on 02/28/13. Is now residing at [facility]. Her leg has cleared up, scattered areas of erythema and some excoriations are present. Edema measurements are similar to patient's last visit. 03/28/13 Pt states she has been wearing compression stockings at home but isn't wearing them today. No new concerns or complaints. 05/02/13 has been applying cream qOday and tetrigrip stockings. now has 4 areas of wounds to right lower leg. has been taking antibiotic as prescribed 05/14/13 Dressing being changed every other day. No problems or concerns. Wearing tetragrip on right leg but was cutting circulation off in left leg so patient was is not wearing it anymore 05/21/13 Pt took dressings off this am but did not replace with a fresh dressing. PT has tetra structural analysis engineer to right leg only.05/28/13 Pt states she still has a rash on her abdomen that bleeds a little. 06/04/13 Dressing being changed daily. No problems or concerns 06/11/13 Pt states dressing changes going ok at home.Pt states drainage from abdominal wound has decreased and she thinks the rash around belly button has cleared. 06/18/13 Pt states she thinks things are going well. Umbillicus dressing not preformed as instructed and two pieces of foam found in umbillicus. Increase in drainage and pt states it was changed yesterday. Increased odor. 06/23/13- No new problems or concernss. Changing abdomen dressing about every other day, states no problems with dressing changes. Past Medical History This information was obtained from the patient Patient has a medical history of: Peripheral neuropathy Necrotizing fasciitis Childhood rheumatic fever Chronic venous hypertension (with ulcer and inflammation; bilateral lower legs; Enterococcus and Diptheroids positive culture 08/21/14) Protein calorie malnutrition - 06/15/2014 Complaints and Symptoms This information was obtained from the patient Patient complains of: General Notes: I have reviewed and concur with the Review of Systems and Past Family Social History documents completed by the clinician, I have reviewed and concur with the Wound Assessment document completed by the clinician Cardiovascular (Central/Peripheral): Lower extremity (leg) swelling Integumentary (Hair/Skin/Nails): Open Sore Musculoskeletal: Assistive Devices Prior Wound History: Drainage, Erythema, Pain Patient denies complaints or symptoms related to: Cardiovascular (Central/Peripheral): Lower extremity (leg) resting pain Constitutional Symptoms (General Health): Chills, Fever, Marked Weight Change Ear/Nose/Mouth/Throat: Hearing Loss / Aid Gastrointestinal (GI): Nausea / Vomiting, Stomach/abdominal pain Hematologic/Lymphatic: Bleeding / Clotting Disorders, Bleeding Tendency Neurological: Loss of Protective Sensation Prior Wound History: Bleeding, Malodor Psychiatric: Memory Loss Respiratory: Oxygen Use, Shortness of Breath OBJECTIVE Constitutional BP elevated; Afebrile; Alert and in no distress. Well developed. Alert. Clean appearing.. Height/Length: 65 in (165.1 cm), Weight: 288.2 lbs (131 kgs), BMI: 48, Temperature: 98.4 ?F ( 36.89 ?C), Pulse: 100 bpm, Respiratory Rate: 18 breaths/min, Blood Pressure: 158/69 mmHg, Pulse Oximetry: 95 %. Ears, Nose, Mouth, and Throat: No clinically significant hearing loss on informal examination. Respiratory: No respiratory distress. Even respirations and without use of accessory muscles.. Cardiovascular: 3+ bilateral lower leg edema. Gastrointestinal (GI): Obese. Nondistended.. Integumentary (Hair, Skin) Hyperkeratotic changes noted over the bilateral lower legs. Refer to appropriate clinician wound documentation for this visit; hypergranulation noted over the left lower leg ulcer base; right lower leg ulcers extend to dermis and are nearly healed. Wound #80 Right, Lateral Leg is a chronic Full Thickness Venous Ulcer and has received a status of Not Healed. Subsequent wound encounter measurements are 1cm length x 0.7cm width x 0.1cm depth, with an area of 0.7 sq cm and a volume of 0.07 cubic cm. No tunneling has been noted. No sinus tract has been noted. No undermining has been noted. There is a small amount of sero- sanguineous drainage noted which has no odor. The patient reports a wound pain of level 0/10. The wound margin is attached. Wound bed has No epithelialization, No eschar, Yes slough, Yes pink, firm granulation. The periwound skin color is normal. The periwound skin exhibited: Induration, Moist. The periwound skin did not exhibit: Brawny Induration, Edema, Excoriation, Callus, Crepitus, Fluctuance, Friable, Rash, Dry/Scaly, Maceration. The temperature of the periwound skin is WNL. Periwound skin does not exhibit signs or symptoms of infection. Local Pulse is Normal. Wound #83 Left, Posterior Leg - lower is an acute Partial Thickness Venous Ulcer and has received a status of Not Healed. Subsequent wound encounter measurements are 0.8cm length x 0.4cm width x 0.1cm depth, with an area of 0.32 sq cm and a volume of 0.032 cubic cm. No tunneling has been noted. No sinus tract has been noted. No undermining has been noted. There is a small amount of sero- sanguineous drainage noted which has no odor. The patient reports a wound pain of level 0/10. The wound margin is attached. Wound bed has Yes epithelialization, No eschar, Yes slough, Yes bright red, firm granulation. The periwound skin moisture is normal. The periwound skin color is normal. The periwound skin exhibited: Edema. The periwound skin did not exhibit: Brawny Induration, Excoriation, Induration, Callus, Crepitus, Fluctuance, Friable, Rash. The temperature of the periwound skin is WNL. Periwound skin does not exhibit signs or symptoms of infection. Local Pulse is Palpable. Wound #85 Right, Posterior Leg is a Full Thickness Venous Ulcer and has received a status of Not Healed. Subsequent wound encounter measurements are 0.6cm length x 0.8cm width x 0.1cm depth, with an area of 0.48 sq cm and a volume of 0.048 cubic cm. No tunneling has been noted. No sinus tract has been noted. No undermining has been noted. There is a small amount of sero- sanguineous drainage noted which has no odor. The patient reports a wound pain of level 1/10. The wound margin is attached. Wound bed has No epithelialization, No eschar, Yes slough, Yes pink, firm granulation. The periwound skin moisture is normal. The periwound skin color is normal. The periwound skin exhibited: Edema. The periwound skin did not exhibit: Brawny Induration, Excoriation, Induration, Callus, Crepitus, Fluctuance, Friable, Rash. The temperature of the periwound skin is WNL. Periwound skin does not exhibit signs or symptoms of infection. Local Pulse is Doppler. Neurological: Cranial nerves grossly intact with symmetric function normal by informal observation.. ASSESSMENT ICD-10 (Encounter Diagnosis) I87.333 - Chronic venous hypertension (idiopathic) with ulcer and inflammation of bilateral lower extremity (Encounter Diagnosis) L97.812 - Non-pressure chronic ulcer of other part of right lower leg with fat layer exposed (Encounter Diagnosis) L97.811 - Non-pressure chronic ulcer of other part of right lower leg limited to breakdown of skin (Encounter Diagnosis) L92.9 - Granulomatous disorder of the skin and subcutaneous tissue, unspecified PROCEDURES Wound #80 Wound #80 (Venous Ulcer) is located on the right, lateral leg. A Multilayer Compression procedure was performed by William Zavala MD. General Notes: Coban 2 layer compression wrap. Wound #83 Wound #83 (Venous Ulcer) is located on the left, posterior leg - lower. A Chemical Cauterization procedure was performed by William Zavala MD. General Notes: Coban 2 layer compression wrap. Silver nitrate use. Wound #83 (Venous Ulcer) is located on the left, posterior leg - lower. A Multilayer Compression procedure was performed by William Zavala MD. General Notes: Coban 2 layer compression wrap. PLAN Wound Orders: Wound #80 Right, Lateral Leg Anesthetic Topical Xylocaine to wound bed. - In clinic only. Cleanser Cleanse Wound: - Normal saline and gauze. May Shower. - Please use cast protector when showering. Topical Treatments Moisturizing lotion to surround skin. - Triamcinolone to chantal wound skin Dressings Primary dressing: - Bordered Foam. Cast padding to fill lower leg. UNNA layers to hold cast padding in place and below knee to hold up wrap. Cover and secure with: - Foam to cover all wounds. Coban 2 Layer compression wraps to both legs. Change Dressing: - Leave in place until next visit. Wound #83 Left, Posterior Leg - lower Anesthetic Topical Xylocaine to wound bed. - In clinic only. Cleanser Cleanse Wound: - Normal saline and gauze. May Shower. - Please use cast protector when showering. Topical Treatments Moisturizing lotion to surround skin. - Triamcinolone to chantal wound skin Dressings Primary dressing: - Bordered Foam. Cast padding to fill lower leg. UNNA layers to hold cast padding in place and below knee to hold up wrap. Cover and secure with: - Foam to cover all wounds. Coban 2 Layer compression wraps to both legs. Change Dressing: - Leave in place until next visit. Wound #85 Right, Posterior Leg Anesthetic Topical Xylocaine to wound bed. - In clinic only. Cleanser Cleanse Wound: - Normal saline and gauze. May Shower. - Please use cast protector when showering. Topical Treatments Moisturizing lotion to surround skin. - Triamcinolone to chantal wound skin Dressings Primary dressing: - Bordered Foam. Cast padding to fill lower leg. UNNA layers to hold cast padding in place and below knee to hold up wrap. Cover and secure with: - Foam to cover all wounds. Coban 2 Layer compression wraps to both legs. Change Dressing: - Leave in place until next visit. Additional Orders: Compression/Edema Control Multi Layer Wrap: - Coban 2 Layer compression wraps to both legs. Follow-Up Appointments Return Appointment: - - One week. Other information: If you develop fever, chills, increased pain, drainage, redness or swelling please call our office. If after hours, respond to the ER. Should you experience any significant changes in your wound(s) or have any questions regarding your home care instructions please contact the wound center @ [phone]. If after hours, contact your primary care physician or go to the hospital emergency room. Scribing Attestation I attest, as the nurse, that I scribed these orders for the physician. I've reviewed the clinician's documentation and agree with the evaluation and plan as written. In addition the presence of hypergranulation tissue in the wound was not an expected finding and was cauterized with silver nitrate. The patient's dressing regimen will be modified appropriately to attempt to reduce the formation of further hypergranulation tissue. Electronic Signature(s) Signed By: Date: William Zavala MD 10/12/2017 08:43:48 Entered By: William Zavala on 10/11/2017 12:21:33
== END ==
PROVIDERS: Family Provider Internal Medicine; PCP Internal Medicine; Visit Provider Internal Medicine
DX: I87.313 Chronic venous hypertension (idiopathic) with ulcer of bilateral lower extremity (principal); L97.811 Non-pressure chronic ulcer of other part of right lower leg limited to breakdown of skin; L97.821 Non-pressure chronic ulcer of other part of left lower leg limited to breakdown of skin; L92.9 Granulomatous disorder of the skin and subcutaneous tissue, unspecified; L84 Corns and callosities
CPT/HCPCS: 17250; 29581

== ENCOUNTER → 2017-10-18 10:11 | Outpatient (CLI) | payer MEDICARE, OTHER, SELFPAY | PROVIDERS: Family Provider Internal Medicine; PCP Internal Medicine; Visit Provider Internal Medicine | DX: Z48.817 Encounter for surgical aftercare following surgery on the skin and subcutaneous tissue (principal); E11.9 Type 2 diabetes mellitus without complications | CPT/HCPCS: 99213 ==

== ENCOUNTER 2017-11-16 18:10 | Inpatient (IN) | payer MEDICARE, OTHER, SELFPAY ==
[2017-11-16 18:17] VITALS: BMI 49.2
[2017-11-16 18:27] VITALS: BP 131/60; PULSE 96; RESP 18; TEMP 37.1; O2SAT 94
[2017-11-16 19:53] VITALS: BP 131/46; PULSE 93; RESP 18; O2SAT 97
[2017-11-16 20:39] VITALS: BP 133/50; PULSE 94; RESP 18; O2SAT 97
[2017-11-16 21:08] VITALS: BP 129/52; PULSE 92; O2SAT 98
[2017-11-16 21:52] VITALS: BP 129/52; PULSE 89; RESP 20; O2SAT 96
[2017-11-16 22:39] LABS: Add Manual Diff / Slide Review NO; Basophils Percent Auto 0.4 % (0-2); Hematocrit 40.8 % (36-46); Hemoglobin 13.6 g/dL (12.0-16.0); Lymphocytes Percent Auto 3.9 % (25-40); Mean Corpuscular HGB Conc 33.4 % (30-36); Mean Corpuscular Hemoglobin 28.6 PG (26-34); Mean Corpuscular Volume 85.8 fL (80-100); Monocytes Percent Auto 3.7 % (3-14); Neutrophils Absolute Auto 17800 /uL (3000-5900); Platelet Count 241 X10^3/uL (150-400); Red Blood Cell Count 4.76 X10^6/uL (4.0-5.2); Red Cell Distribution Width 14.9 % (11.6-14.8); White Blood Cell Count 19.4 X10^3/uL (4.5-11.0)
[2017-11-16 22:41] LABS: Alanine Aminotransferase 26 IU/L (9-52); Albumin 3.9 g/dL (3.5-5.0); Albumin Globulin Ratio 1.1 (1.0-2.8); Alkaline Phosphatase 97 U/L (38-126); Aspartate Aminotransferase 36 IU/L (14-36); BUN Creatinine Ratio 15.6 (6-22); Bilirubin Total 0.8 mg/dL (0.2-1.3); Blood Urea Nitrogen 14 mg/dL (7-17); Calcium 8.9 mg/dL (8.4-10.2); Carbon Dioxide 28 mmol/L (22-32); Chloride 104 mmol/L (98-107); Estimated Glomerular Filt Rate > 60.0 mL/min (>60); Globulin 3.6 g/dL (1.7-4.1); Glucose 127 mg/dL (80-110); HEMOLYSIS < 15 (0-50); Potassium 3.7 mmol/L (3.4-5.1); Sodium 142 mmol/L (137-145); Total Protein 7.5 g/dL (6.3-8.2)
[2017-11-16 22:42] LABS: Lactate (Lactic Acid) 1.5 mmol/L (0.7-2.1)
[2017-11-16 22:57] LABS: Procalcitonin 0.56 ng/mL (<0.5)
[2017-11-16 23:30] VITALS: BP 136/67; PULSE 92; O2SAT 94
--- NOTE | 2017-11-16 23:37 | ED_ITS ---
HPI - Extremity Injury (Lower) General Chief Complaint: Extremity Injury, Lower Stated Complaint: Cellulitis Pain Time Seen by Provider: 11/16/17 18:33 Source: patient and EMS Mode of arrival: EMS Limitations: no limitations History of Present Illness HPI Narrative: Patient is a 77-year-old female who presents with bilateral lower extremity redness and drainage. She is obese with chronic ulcers on her legs. She said yesterday they started draining more than usual. It does not appear that she is seeing wound care any longer. She says that she has been caring them for herself. She denies any fever or chills. She has an obvious foul smell from her legs. Erythema seems to be extending up beyond her knees and into her mid thigh bilaterally. She is not sure how long that has been there. She does not know that is gotten any worse she just noted more drainage. Related Data Home Medications Medication Instructions Recorded Confirmed potassium chloride 20 meq PO BID #0 08/23/16 11/17/17 acetaminophen 650 mg PO Q6HP PRN #0 05/25/17 11/17/17 Previous Rx's Medication Instructions Recorded gentamicin 0 gm TOPICAL QDAY #1 08/26/16 nystatin [Nystop] 0 gm TOPICAL BID #30 01/21/17 furosemide [Lasix] 80 mg PO QDAY #30 tab 05/29/17 levofloxacin [Levaquin] 500 mg PO QDAY #7 tab 07/11/17 linezolid [Zyvox] 600 mg PO Q12H #14 tab 07/11/17 Allergies Allergy/AdvReac Type Severity Reaction Status Date / Time amoxicillin [From Augmentin] Allergy Severe rash, Unverified 07/25/17 11:49 flushing, nausea,vomiting clavulanic acid Allergy Severe rash, Unverified 07/25/17 11:49 [From Augmentin] flushing, nausea,vomiting vancomycin [VANCOMYCIN] Allergy Severe URSULA Unverified 07/25/17 11:49 SYNDROME, CHILLS/SHAKING, TACHYCARDIA, HYPERTENSION codeine Allergy Intermediate hives, Unverified 07/25/17 11:49 vomiting fluconazole Allergy Intermediate hives Unverified 07/25/17 11:49 nafcillin Allergy Intermediate rash Unverified 07/25/17 11:49 oxycodone Allergy Intermediate rash, Unverified 07/25/17 11:49 MENTAL CHANGES piperacillin Allergy Intermediate rash Unverified 07/25/17 11:49 fish oil Allergy Unknown Unverified 07/25/17 11:49 morphine AdvReac Unknown PASS OUT, Unverified 07/25/17 11:49 RACING HEART DIALUDID AdvReac Unknown MENTAL Uncoded 07/25/17 11:49 STATUS CHANGES Review of Systems Constitutional Denies chills, Denies fever(s), Denies lethargy and Denies weakness Cardiovascular Denies chest pain, Denies irregular heart rhythm, Denies lightheadedness, Denies palpitations, Denies dyspnea, Denies dyspnea on exertion and Denies orthopnea Respiratory Denies cough, Denies dyspnea, Denies dyspnea on exertion and Denies wheezing Gastrointestinal Gastrointestinal: Denies abdominal pain, Denies change in bowel habits, Denies diarrhea, Denies nausea and Denies vomiting Integumentary/Breasts Reports system reviewed and no additional complaints, except as docu Neurologic Denies weakness Endocrine Denies palpitations Allergic/Immunologic Denies wheezing [facility] Social History household members: children Smoking Status: Never smoker Exam Initial Vital Signs Initial Vital Signs: Vital Signs Temperature 98.8 F 11/16/17 18:27 Pulse Rate 96 H 11/16/17 18:27 Respiratory Rate 18 11/16/17 18:27 Blood Pressure 131/60 H 11/16/17 18:27 Pulse Oximetry 94 11/16/17 18:27 Const General: cooperative Nutritional Appearance: obese Chest Chest: normal inspection of the chest Resp Effort & Inspection: normal respiratory effort Auscultation: clear to auscultation bilaterally Cardio Rate: regular rate Rhythm: regular rhythm Heart Sounds: S1 normal and S2 normal GI Palpation: soft, No firm, No guarding and No tender Skin Other: Chronic lower leg wounds and lymphedema. She has erythema extending bilaterally up to mid thigh. She has foul-smelling discharge from her wounds. Neuro General: alert, awake, oriented x3 and CN's II-XI intact bilaterally Course Orders Ordered: ED Orders 11/16/17 22:20 Blood Culture Stat Complete Blood Count AUTO DIFF Stat Comprehensive Metabolic Panel Stat Lactate (Lactic Acid) Stat Procalcitonin Stat 11/16/17 23:30 Wound Culture and Gram Stain Stat Wound Culture and Gram Stain Stat 11/17/17 01:11 Consult to Physician Routine 11/17/17 06:00 Complete Blood Count AUTO DIFF Stat Acetaminophen (Tylenol) 650 mg PO Q6H PRN PRN Reason: As Needed for Fever/Mild Pain Sodium Chloride (Normal Saline 0.9%) 1,000 mls @ 125 mls/hr IV CONT MIKEY Last Admin: 11/17/17 01:31 Dose: 125 mls/hr Ondansetron HCl (Zofran) 4 mg IV Q4H PRN PRN Reason: Nausea And Vomiting Discontinued Medications Levofloxacin (Levaquin) 750 mg in 150 mls @ 100 mls/hr IV NOW ONE Stop: 11/17/17 00:32 Last Infusion: 11/17/17 02:34 Dose: 100 mls/hr Admin: 11/16/17 23:41 Dose: 100 mls/hr Vancomycin HCl 2,000 mg/ (Sodium Chloride) 500 mls @ 250 mls/hr IV NOW ONE Stop: 11/16/17 23:23 Last Admin: 11/17/17 02:34 Dose: Vital Signs - 8 hr 11/16/17 19:53 11/16/17 20:39 11/16/17 21:08 Temperature Pulse Rate 93 H 94 H 92 H Respiratory Rate 18 18 Blood Pressure Blood Pressure [Right Arm] 131/46 H 133/50 H 129/52 H Pulse Oximetry 97 97 98 11/16/17 21:52 11/16/17 23:30 11/17/17 01:00 Temperature 98.9 F Pulse Rate 89 92 H 95 H Respiratory Rate 20 16 Blood Pressure 148/67 H Blood Pressure [Right Arm] 129/52 H 136/67 H Pulse Oximetry 96 94 95 MDM - Extremity Injury (Lower) Lab Data Attestation: I reviewed the patient's lab results. Result diagrams: 11/16/17 22:20 11/16/17 22:20 Lab Results 11/16/17 11/16/17 11/16/17 Range/Units 22:20 22:20 22:20 WBC 19.4 H (4.5-11.0) X10^3/uL RBC 4.76 (4.0-5.2) X10^6/uL Hgb 13.6 (12.0-16.0) g/dL Hct 40.8 (36-46) % MCV 85.8 (80-100) fL MCH 28.6 (26-34) PG MCHC 33.4 (30-36) % RDW 14.9 H (11.6-14.8) % Plt Count 241 (150-400) X10^3/uL Neut % (Auto) 92.0 H (50-75) % Lymph % (Auto) 3.9 L (25-40) % Maverick % (Auto) 3.7 (3-14) % Eos % (Auto) 0.0 L (2-4) % Baso % (Auto) 0.4 (0-2) % Neut # (Auto) 10171 H (4547-5254) /uL Sodium 142 (137-145) mmol/L Potassium 3.7 (3.4-5.1) mmol/L Chloride 104 (98-107) mmol/L Carbon Dioxide 28 (22-32) mmol/L BUN 14 (7-17) mg/dL Creatinine 0.90 (0.52-1.04) mg/dL Estimated GFR > 60.0 (>60) mL/min BUN/Creatinine Ratio 15.6 (6-22) Glucose 127 H (80-110) mg/dL Lactate (0.7-2.1) mmol/L Calcium 8.9 (8.4-10.2) mg/dL Total Bilirubin 0.8 (0.2-1.3) mg/dL AST 36 (14-36) IU/L ALT 26 (9-52) IU/L Alkaline Phosphatase 97 (38-126) U/L Total Protein 7.5 (6.3-8.2) g/dL Albumin 3.9 (3.5-5.0) g/dL Globulin 3.6 (1.7-4.1) g/dL Albumin/Globulin Ratio 1.1 (1.0-2.8) Procalcitonin 0.56 H (<0.5) ng/mL 11/16/17 Range/Units 22:20 WBC (4.5-11.0) X10^3/uL RBC (4.0-5.2) X10^6/uL Hgb (12.0-16.0) g/dL Hct (36-46) % MCV (80-100) fL MCH (26-34) PG MCHC (30-36) % RDW (11.6-14.8) % Plt Count (150-400) X10^3/uL Neut % (Auto) (50-75) % Lymph % (Auto) (25-40) % Maverick % (Auto) (3-14) % Eos % (Auto) (2-4) % Baso % (Auto) (0-2) % Neut # (Auto) (1295-3334) /uL Sodium (137-145) mmol/L Potassium (3.4-5.1) mmol/L Chloride (98-107) mmol/L Carbon Dioxide (22-32) mmol/L BUN (7-17) mg/dL Creatinine (0.52-1.04) mg/dL Estimated GFR (>60) mL/min BUN/Creatinine Ratio (6-22) Glucose (80-110) mg/dL Lactate 1.5 (0.7-2.1) mmol/L Calcium (8.4-10.2) mg/dL Total Bilirubin (0.2-1.3) mg/dL AST (14-36) IU/L ALT (9-52) IU/L Alkaline Phosphatase (38-126) U/L Total Protein (6.3-8.2) g/dL Albumin (3.5-5.0) g/dL Globulin (1.7-4.1) g/dL Albumin/Globulin Ratio (1.0-2.8) Procalcitonin (<0.5) ng/mL MDM Narrative Medical decision making narrative: Patient has leukocytosis with bilateral worsening chronic cellulitis of her legs. She has foul-smelling discharge from her wounds. She is not being followed by wound care any longer. She is leukocytosis. She does not appear toxic or septic. Hemodynamically stable. According to old records previously treated with Levaquin. Dr. Beyer has been updated patient's symptoms and test results agrees with admission on Levaquin at this time. History of MRSA. Discharge Plan Departure Patient Disposition: Admitted As Inpatient Clinical Impression: Bilateral cellulitis of lower leg Discharge Date/Time: 11/17/17 01:13 Interventions: ED Discharge Assessment Last Done: 11/17/17 01:13 Admit Date/Time: 11/16/17 23:53 Admit Provider: Arya Beyer
[2017-11-16] MEDS: levoFLOXacin 750 MG/150 ML PIGGYBACK 100 MG IV (23:41)
[2017-11-17 01:00] VITALS: BP 148/67; PULSE 95; RESP 16; TEMP 37.2; O2SAT 95
[2017-11-17] MEDS: SODIUM CHLORIDE 0.9% 1,000 ML 125 ML IV ×2 (01:31→10:45)
[2017-11-17 01:33] VITALS: BMI 49.2
--- NOTE | 2017-11-17 02:35 | PC.NURSE ---
Pt. admitted to room 221 for LE Cellulitis. BLE's erythematous, weepy & malodorous. Bilat. groins yeast infection noted. erythema & very moist. Pt. placed a towel from home, cleansed groins with NS, pat dry with 4x4 & pillow case placed. Took off her BLE's drsgs. soiled with serous drainage & foul smelling odor. Denies any pain @ this time. Notified DR. Giraldo ER physician that Pt. is allergic to Vancomycin, she ordered not to give it. NS started @ 125 cc/hr. Pt. is very tired & sleepy, falls back to sleep when I was doing her admission assessment. Will cont. POC & monitor.
[2017-11-17 04:45] VITALS: BP 130/55; PULSE 85; RESP 16; TEMP 36.8; O2SAT 98
[2017-11-17 08:20] VITALS: BP 131/60; PULSE 83; RESP 16; TEMP 36.2; O2SAT 97
[2017-11-17 08:50] LABS: Add Manual Diff / Slide Review NO; Basophils Percent Auto 0.3 % (0-2); Eosinophils Percent Auto 0.1 % (2-4); Hematocrit 37.4 % (36-46); Hemoglobin 12.3 g/dL (12.0-16.0); Lymphocytes Percent Auto 5.8 % (25-40); Mean Corpuscular HGB Conc 32.8 % (30-36); Mean Corpuscular Hemoglobin 28.2 PG (26-34); Monocytes Percent Auto 6.8 % (3-14); Neutrophils Absolute Auto 10900 /uL (3000-5900); Platelet Count 192 X10^3/uL (150-400); Red Blood Cell Count 4.34 X10^6/uL (4.0-5.2); Red Cell Distribution Width 14.9 % (11.6-14.8); White Blood Cell Count 12.5 X10^3/uL (4.5-11.0)
[2017-11-17] MEDS: FUROSEMIDE 40 MG TABLET 80 MG PO (09:06)
[2017-11-17 11:15] VITALS: BP 127/58; PULSE 82; RESP 18; TEMP 36.7; O2SAT 97
--- NOTE | 2017-11-17 15:12 | CM.DANOTE ---
Pt is a 77 year old female who admitted 11/16/17 to care of hospitalist team for Cellulitis. PCP: Dr. Beyer Payer: Medicare and Brit Shearerpt admission status/confirmed by UR RN. EMR was reviewed. Per MD, pt likely here another few days. Pt confirms that her 2 sons and a grandson still live with her. Her daughter Nasima lives nearby and pt says she is in process of making Nasima her POA we just haven't finished paperwork. Pt has been involved with the [facility] for a long time. She confirms that she consults Dr. Zavala for specifics of her current wound care. Pt has had [facility] in the past and is not currently open to HH services. She has been to snf settings with the last time [facility] in 2017 but no SNF since then. Plan: SW to follow closely for d/c planning needs. Pt has chronic wound care needs and currently on IV-Abx. 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 Is this patient on Medicare? Yes Is the admit diagnosis the same? Yes Prior Living Arrangements House Household Members children Type of transporation used prior to Relies on Others admit Willing to Return to Facility? No Independent with ADL's No Is patient alert and oriented? Yes Needs Assistance With Meal Prep Managing Medications Home Chores / Shopping Caregiver for Another No: Son and grandsons still live with her Discharge Plan Home Transportation Arrangement Pt has local son and Dtr who usually provide transport Review Status In Process Next Review Type Discharge Review
[2017-11-17 15:26] VITALS: BP 142/62; PULSE 85; RESP 18; TEMP 36.3; O2SAT 99
[2017-11-17] MEDS: ACETAMINOPHEN 325 MG TABLET 650 MG PO (15:47)
[2017-11-17] MEDS: LINEZOLID 600 MG/300 ML IV.SOLN 300 MG IV (15:55)
--- NOTE | 2017-11-17 18:00 | P.HP_ITS ---
History of Present Illness Chief complaint: Cellulitis Pain Narrative: The patient is a 77-year-old female with a history of morbid obesity and chronic stasis dermatitis present on admission with a 1-2 day history of increased swelling of her left leg. Patient states that she was last seen in wound clinic last week of October. At that time she had significant improvement and was told that she did not need to follow-up. Then approximately 1 day prior to admission she began to fill warm and somewhat weak and noticed increased swelling of her left lower extremity. As result she presented to the ED for evaluation. She had a bandage on her right lower extremity and after the bandage was removed by the ED she states that she had sloughed tissue of the right lower extremity. She does not have any definite fever. in the ED her procalcitonin was slightly elevated at 0.56. Her glucose is 127. In the ED her left lower extremity was noted to be significantly swollen above the knee to the thigh and there was blotchy erythema She was therefore admitted for cellulitis of her lower extremity. Patient History Medical History Morbid obesity (Acute) Stasis dermatitis (Acute) Wound of lower extremity (Acute) Surgical History H/O umbilical hernia repair (Acute) Family & Social History Social History: She is and her ex- has . She lives with her son and grandson. household members children Prior Living Arrangements House Safety & Behavioral: Feels Safe in Current Yes Environment Been Physically Hurt or No Threatened By a Person Suicidal Ideation Description None Suicide Plan Description No Plan Tobacco & Substance use: She is a nonsmoker nondrinker Smoking Status Never smoker alcohol intake frequency holiday/special occasion Substance Use Type does not use Meds Home Medications Medication Instructions Recorded Confirmed Type potassium chloride 20 meq PO BID #0 08/23/16 11/17/17 History gentamicin 0 gm TOPICAL QDAY #1 08/26/16 11/17/17 Rx nystatin [Nystop] 0 gm TOPICAL BID #30 01/21/17 11/17/17 Rx acetaminophen 650 mg PO Q6HP PRN #0 05/25/17 11/17/17 History furosemide [Lasix] 80 mg PO QDAY #30 tab 05/29/17 11/17/17 Rx levofloxacin [Levaquin] 500 mg PO QDAY #7 tab 07/11/17 11/17/17 Rx linezolid [Zyvox] 600 mg PO Q12H #14 tab 07/11/17 11/17/17 Rx Allergies Allergy/AdvReac Type Severity Reaction Status Date / Time amoxicillin [From Augmentin] Allergy Severe rash, Verified 11/17/17 07:27 flushing, nausea,vomiting clavulanic acid Allergy Severe rash, Verified 11/17/17 07:27 [From Augmentin] flushing, nausea,vomiting vancomycin [VANCOMYCIN] Allergy Severe URSULA Verified 11/17/17 07:27 SYNDROME, CHILLS/SHAKING, TACHYCARDIA, HYPERTENSION codeine Allergy Intermediate hives, Verified 11/17/17 07:27 vomiting fluconazole Allergy Intermediate hives Verified 11/17/17 07:27 nafcillin Allergy Intermediate rash Verified 11/17/17 07:27 oxycodone Allergy Intermediate rash, Verified 11/17/17 07:27 MENTAL CHANGES piperacillin Allergy Intermediate rash Verified 11/17/17 07:27 fish oil Allergy Unknown Verified 11/17/17 07:27 morphine AdvReac Unknown PASS OUT, Verified 11/17/17 07:27 RACING HEART DIALUDID AdvReac Unknown MENTAL Uncoded 07/25/17 11:49 STATUS CHANGES Review of Systems Review of Systems All systems reviewed & are unremarkable except as noted in HPI and below Exam Vital Signs (past 8 hours): - 11/17/17 11:15 11/17/17 15:26 Temperature 98.0 F 97.3 F L Pulse Rate 82 85 Respiratory Rate 18 18 Blood Pressure 127/58 H 142/62 H Pulse Oximetry 97 99 Oxygen Delivery Method Room Air Oxygen Flow Rate 0 Narrative Exam Narrative: General NAD HEENT normocephalic atraumatic extraocular movement was intact pupils equal round reactive fundi not visualized oropharynx clear sclera nonicteric Neck obese without thyromegaly bruits or jugular venous distention Lungs Clear to auscultation Heart regular rhythm S1-S2 were normal Abdomen obese benign bowel sounds active Extremities right lower leg with large denuded somewhat rectangular wound left leg 3 to 4+ edema of from above the knee with blotchy erythema up to the thigh Neurologic grossly physiologic Psychiatric mood and affect were normal Skin as for leg above and in addition the face was with central erythema Objective Labs Result Diagrams: 11/17/17 08:45 11/16/17 22:20 Labs: Laboratory Results - last 24 hr 11/16/17 11/16/17 11/16/17 22:20 22:20 22:20 WBC 19.4 H RBC 4.76 Hgb 13.6 Hct 40.8 MCV 85.8 MCH 28.6 MCHC 33.4 RDW 14.9 H Plt Count 241 Neut % (Auto) 92.0 H Lymph % (Auto) 3.9 L [place] % (Auto) 3.7 Eos % (Auto) 0.0 L Baso % (Auto) 0.4 Neut # (Auto) 04569 H Sodium 142 Potassium 3.7 Chloride 104 Carbon Dioxide 28 BUN 14 Creatinine 0.90 Estimated GFR > 60.0 BUN/Creatinine Ratio 15.6 Glucose 127 H Lactate Calcium 8.9 Total Bilirubin 0.8 AST 36 ALT 26 Alkaline Phosphatase 97 Total Protein 7.5 Albumin 3.9 Globulin 3.6 Albumin/Globulin Ratio 1.1 Procalcitonin 0.56 H 11/16/17 11/17/17 22:20 08:45 WBC 12.5 H RBC 4.34 Hgb 12.3 Hct 37.4 MCV 86.0 MCH 28.2 MCHC 32.8 RDW 14.9 H Plt Count 192 Neut % (Auto) 87.0 H Lymph % (Auto) 5.8 L [place] % (Auto) 6.8 Eos % (Auto) 0.1 L Baso % (Auto) 0.3 Neut # (Auto) 21690 H Sodium Potassium Chloride Carbon Dioxide BUN Creatinine Estimated GFR BUN/Creatinine Ratio Glucose Lactate 1.5 Calcium Total Bilirubin AST ALT Alkaline Phosphatase Total Protein Albumin Globulin Albumin/Globulin Ratio Procalcitonin Assessment & Plan Plan: Assessment/Plan Narrative: 1. Cellulitis left lower extremity She is on levofloxacin as the wound culture reveals gram-negative rods. She is also on IV Zyvox for the possibility of MRSA. She had previously been on p.o. Zyvox. She has allergies to multiple drugs including penicillins and vancomycin 2. Wound right lower extremity Will place wound clinic consult Quality VTE Deep Vein Thrombosis/Pulmonary Embolism Present on Admission: No
[2017-11-17 20:22] VITALS: BP 120/68; PULSE 78; RESP 16; TEMP 36.3; O2SAT 96
--- NOTE | 2017-11-17 20:51 | PC.NURSE ---
jonny note Pt up to bathroom with one person assist. Pt has dry scaly skin in legs with erythema, left side significantly greater than right. Right lower leg has dark red skin with few small open areas of skin. Left leg is dark red on lower portion with bright red and hot skin to inner knee and up thigh. Red moist skin in abd folds; pillow case in place to absorb moisture.
[2017-11-18] VITALS (8 sets, daily range): BP systolic 122–145; BP diastolic 54–76; PULSE 74–94; RESP 17–20; TEMP 35.8–36.6; O2SAT 95–99
[2017-11-18] MEDS: SODIUM CHLORIDE 0.9% 1,000 ML 125 ML IV (00:17)
[2017-11-18] MEDS: LINEZOLID 600 MG/300 ML IV.SOLN IV ×2 (02:06→17:50)
[2017-11-18] MEDS: ACETAMINOPHEN 325 MG TABLET 650 MG PO (04:19)
[2017-11-18 05:38] LABS: Hematocrit 35.6 % (36-46); Hemoglobin 11.7 g/dL (12.0-16.0); Mean Corpuscular HGB Conc 32.7 % (30-36); Mean Corpuscular Hemoglobin 28.2 PG (26-34); Mean Corpuscular Volume 86.2 fL (80-100); Platelet Count 191 X10^3/uL (150-400); Red Blood Cell Count 4.13 X10^6/uL (4.0-5.2)
[2017-11-18 05:51] LABS: Blood Urea Nitrogen 12 mg/dL (7-17); Calcium 7.7 mg/dL (8.4-10.2); Carbon Dioxide 26 mmol/L (22-32); Chloride 105 mmol/L (98-107); Estimated Glomerular Filt Rate > 60.0 mL/min (>60); Glucose 98 mg/dL (80-110); HEMOLYSIS < 15 (0-50); Potassium 3.3 mmol/L (3.4-5.1); Sodium 140 mmol/L (137-145)
[2017-11-18 06:16] LABS: Neutrophils Absolute Manual 5760 /uL (3000-5900); Total Cells Counted 100
[2017-11-18] MEDS: NYSTATIN POWDER 30 GM TOP ×2 (09:40→22:27)
[2017-11-18] MEDS: FUROSEMIDE 40 MG TABLET 80 MG PO (09:41)
[2017-11-18] MEDS: POTASSIUM CHLORIDE 20 MEQ TAB PO ×2 (09:41→22:17)
--- NOTE | 2017-11-18 14:45 | PC.NURSE ---
Pt's IV dislodged from upper arm. Several attempts made to restart but all unsuccessful. Order for pICC line placement obtained which will be placed this afternoon. Otherwise pt has been feeling improved - up to bathroom several times with standby assist.
[2017-11-18] MEDS: CEFAZOLIN 2 GM/100 ML FROZ.PIGGY IV (18:34)
--- NOTE | 2017-11-18 20:25 | PM.PN.1 ---
Subjective Interval history: She states her leg feels somewhat better. Exam Vital Signs (past 8 hours): - 11/18/17 16:08 Temperature 97.6 F Pulse Rate 94 H Respiratory Rate 18 Blood Pressure 145/76 H Pulse Oximetry 99 Oxygen Delivery Method Room Air Oxygen Flow Rate 0 Narrative Exam Narrative: General NAD HEENT normocephalic atraumatic extraocular movement was intact pupils equal round reactive fundi not visualized oropharynx clear sclera nonicteric Neck obese without thyromegaly bruits or jugular venous distention Lungs Clear to auscultation Heart regular rhythm S1-S2 were normal Abdomen obese benign bowel sounds active Extremities the large denuded area of the right leg has significantly improved. left leg has 3 to 4+ edema of from above the knee with blotchy erythema up to the thigh. The erythema has improved. Neurologic grossly physiologic Psychiatric mood and affect were normal Skin as for leg above and in addition the facial erythema has improved Objective Labs Result Diagrams: 11/18/17 05:00 11/18/17 05:00 Labs: Laboratory Results - last 24 hr 11/18/17 11/18/17 05:00 05:00 WBC 8.0 RBC 4.13 Hgb 11.7 L Hct 35.6 L MCV 86.2 MCH 28.2 MCHC 32.7 RDW 15.0 H Plt Count 191 Total Counted 100 Seg Neutrophils % 70.0 Band Neutrophils % 2.0 L Lymphocytes % (Manual) 21.0 L Monocytes % (Manual) 4.0 Eosinophils % (Manual) 2.0 Metamyelocytes % 1.0 H Neutrophils # (Manual) 5760 RBC Morphology Not Reportable Sodium 140 Potassium 3.3 L Chloride 105 Carbon Dioxide 26 BUN 12 Creatinine 0.80 Estimated GFR > 60.0 BUN/Creatinine Ratio 15.0 Glucose 98 Calcium 7.7 L Assessment & Plan Plan: Assessment/Plan Narrative: 1. Cellulitis left lower extremity Culture have returned. Antibiotics have been adjusted based on the culture results 2. Wound right lower extremity Cultures have returned and antibiotics have been adjusted based on culture results 3. Overall clinical condition Appears that there is improvement of her cellulitis of the left lower extremity and a wound of the right lower extremity. She remains afebrile and her white count has completely normalized is 8.0 today Disposition Her left leg still is fairly erythematous from her cellulitis and it would appear that her hospital stay will be an additional 2-4 days until enough improvement has occurred for her to be placed on oral antibiotics Quality VTE Deep Vein Thrombosis/Pulmonary Embolism Present on Admission: No
[2017-11-19] MEDS: ACETAMINOPHEN 325 MG TABLET 650 MG PO (00:41)
[2017-11-19] MEDS: CEFAZOLIN 2 GM/100 ML FROZ.PIGGY IV ×3 (00:42→15:56)
[2017-11-19] MEDS: LINEZOLID 600 MG/300 ML IV.SOLN IV ×2 (01:56→14:40)
[2017-11-19 04:00] VITALS: BP 146/79; PULSE 88; RESP 17; TEMP 36.4; O2SAT 96
--- NOTE | 2017-11-19 04:31 | PC.NURSE ---
Motorcoach Operator-Pt slept on/off throughout night. OOB to BR with SBA using FWW. ABX infused well to KONG Midline that flushes well with brisk blood return. RLE edematous, pink/red in color, fragile skin. LLE redness and edematous up to thigh area. No drainage noted from BLE. Tylenol po prn given at 0040 for BLE pain per pt request. O2 sat 95% on RA, AE clear and diminished throughout. Pt states gets short of breath when trying to get OOB to sitting position, once standing and ambulating, pt then denies feeling short of breath. No other voiced concerns.
[2017-11-19 06:00] LABS: Blood Urea Nitrogen 12 mg/dL (7-17); Calcium 7.8 mg/dL (8.4-10.2); Carbon Dioxide 28 mmol/L (22-32); Chloride 105 mmol/L (98-107); Estimated Glomerular Filt Rate > 60.0 mL/min (>60); Glucose 94 mg/dL (80-110); HEMOLYSIS < 15 (0-50); Magnesium 1.9 mg/dL (1.6-2.3); Potassium 3.5 mmol/L (3.4-5.1); Sodium 139 mmol/L (137-145)
[2017-11-19 07:39] VITALS: BP 151/84; PULSE 82; RESP 17; TEMP 36.8; O2SAT 96
[2017-11-19] MEDS: FUROSEMIDE 40 MG TABLET 80 MG PO (09:26)
[2017-11-19] MEDS: ENOXAPARIN 40 MG/0.4 ML SYRINGE SUBCUT (09:26)
[2017-11-19] MEDS: POTASSIUM CHLORIDE 20 MEQ TAB PO ×2 (09:26→20:47)
[2017-11-19] MEDS: NYSTATIN POWDER 30 GM TOP ×2 (09:27→20:47)
[2017-11-19] MEDS: SODIUM CHLORIDE 0.9% 250 ML 21 ML IV (09:30)
[2017-11-19 10:57] VITALS: O2SAT 99
[2017-11-19 11:30] VITALS: BP 143/81; PULSE 90; RESP 18; TEMP 36.6; O2SAT 99
--- NOTE | 2017-11-19 16:22 | PM.PN.1 ---
Subjective Date Patient Seen: 11/19/17 Interval history: Patient feels that swelling in both lower extremities has improved. She notes decreased erythema bilaterally. She denies any pain. She states her legs had improved significantly. She had been discharged from the Wound Care Clinic because of her significant improvement. She does note a deterioration over the past few weeks. Exam Vital Signs (past 8 hours): - 11/19/17 10:57 11/19/17 11:30 Temperature 97.8 F Pulse Rate 90 Respiratory Rate 18 Blood Pressure 143/81 H Pulse Oximetry 99 99 Oxygen Delivery Method Room Air Oxygen Flow Rate 0 Narrative Exam Narrative: Lungs: Clear to auscultation Cardiac e regular rate and rhythm normal S1 and S2 with a 2/6 systolic ejection murmur Abdomen: Soft nontender nondistended obese Ext bilateral lower extremity edema. There is also erythema in patches in both lower extremities. There is an open ulcerated 5 x 7 cm lesion on the right anterior bee. Objective Labs Result Diagrams: 11/18/17 05:00 11/19/17 05:19 Labs: Laboratory Results - last 24 hr 11/19/17 05:19 Sodium 139 Potassium 3.5 Chloride 105 Carbon Dioxide 28 BUN 12 Creatinine 0.80 Estimated GFR > 60.0 BUN/Creatinine Ratio 15.0 Glucose 94 Calcium 7.8 L Magnesium 1.9 Assessment & Plan (1) Bilateral cellulitis of lower leg: Problem details: Continue IV antibiotics. Will consult Dr. estevez for definitive treatment. Current visit: Yes Status: Acute (2) Left leg cellulitis: Problem details: Continue antibiotics consult Dr. estevez Current visit: No Status: Acute (3) Lymphedema of both lower extremities: Problem details: Consult Dr. estevez. Patient may benefit from Unna boots or additional dressing changes. Current visit: No Status: Acute (4) Morbid obesity: Current visit: Yes Status: Acute Plan: Assessment/Plan Narrative: Continue home medication regimen. Quality VTE Deep Vein Thrombosis/Pulmonary Embolism Present on Admission: No
[2017-11-19 17:39] VITALS: BP 141/57; PULSE 88; RESP 18; TEMP 36.4; O2SAT 98
[2017-11-19 21:06] VITALS: BP 135/64; PULSE 91; RESP 16; TEMP 37.1; O2SAT 95
[2017-11-20] VITALS (7 sets, daily range): BP systolic 139–159; BP diastolic 57–88; PULSE 77–95; RESP 16–20; TEMP 36.5–36.8; O2SAT 94–98
[2017-11-20] MEDS: CEFAZOLIN 2 GM/100 ML FROZ.PIGGY IV ×3 (00:08→17:15)
[2017-11-20] MEDS: LINEZOLID 600 MG/300 ML IV.SOLN IV ×2 (01:11→14:28)
[2017-11-20] MEDS: SODIUM CHLORIDE 0.9% FLUSH 10 ML IV (02:07)
[2017-11-20] MEDS: ACETAMINOPHEN 325 MG TABLET 650 MG PO ×2 (05:34→14:28)
--- NOTE | 2017-11-20 05:41 | PC.NURSE ---
Coal Sample Tester- Pt slept well overnight, no acute issues. OOB with SBA, pt using FWW indep. BLE skin fragile, no drainage noted, MARY. Edema decreased in last 24hr per this writers assessment. RLE edema decreased more compared to LLE. Tylenol po prn given at 0535 per pt request for 6/10 BLE aching.
[2017-11-20] MEDS: POTASSIUM CHLORIDE 20 MEQ TAB PO ×2 (09:12→20:50)
[2017-11-20] MEDS: ENOXAPARIN 40 MG/0.4 ML SYRINGE SUBCUT (09:12)
[2017-11-20] MEDS: FUROSEMIDE 40 MG TABLET 80 MG PO (09:12)
[2017-11-20] MEDS: NYSTATIN POWDER 30 GM TOP ×2 (09:13→20:49)
--- NOTE | 2017-11-20 11:49 | CM.DPC ---
DCP Cont: Per MD, pt still on IV-Abx and Wound Consult ordered to better determine d/c planning needs. Pt not medically stable for discharge yet today. Plan: SW to follow closely after Wound Consult towards determining d/c planning needs and if pt will be safe for d/c back home vs SNF. HEATHER Judd
[2017-11-20] MEDS: GENTAMICIN 0.1% OINT 30 GM 1 APPLIC TOP (14:29)
--- NOTE | 2017-11-20 15:14 | PC.NURSE ---
Pt resting in bed after dressings applied to ble. Leg wounds cleaned with saline, patted dry, gentamycin ointment applied, allevyn dressing applied and wrapped in kerlix.
--- NOTE | 2017-11-20 16:51 | PM.PN.1 ---
Subjective Date Patient Seen: 11/20/17 Interval history: Overall patient feels that she is getting better. Her lower extremities have wound dressing in place and she is pleased with that. Patient is clear she does not want to go to SNF. She is willing to go to home with home health and outpatient wound care follow-up. Exam Vital Signs (past 8 hours): - 11/20/17 11:45 Temperature 97.9 F Pulse Rate 90 Respiratory Rate 16 Blood Pressure 147/78 H Pulse Oximetry 95 Oxygen Delivery Method Room Air Oxygen Flow Rate 0 Narrative Exam Narrative: HEENT: Normocephalic atraumatic, oropharynx is clear, Lungs: Clear to auscultation Cardiac exam: Regular rate and rhythm normal S1 and S2 Abdomen: Obese soft nontender Extremities: Bilateral 3 to 4+ edema. There is erythema of the left thigh. Gauze dressings are in place. There is dry scaly skin on the anterior bee. As well as feet. Objective Labs Result Diagrams: 11/18/17 05:00 11/19/17 05:19 Assessment & Plan (1) Morbid obesity: Current visit: Yes Status: Acute (2) Bilateral cellulitis of lower leg: Problem details: Continue IV antibiotics. Will consult Dr. estevez for definitive treatment. Continue wound care per Dr. bowens Current visit: Yes Status: Acute (3) Lymphedema of both lower extremities: Problem details: Consult Dr. estevez. Patient may benefit from Unna boots or additional dressing changes. Continue wound care per Dr. Perkins Current visit: No Status: Acute Plan: Assessment/Plan Narrative: Anticipated discharge home with home health and follow up with outpatient wound care clinic. Quality VTE Deep Vein Thrombosis/Pulmonary Embolism Present on Admission: No
--- NOTE | 2017-11-20 17:38 | PC.NURSE ---
Addendum entered by Awilda Chou R.N. 11/20/17 21:04: Relatively uneventful evening. Denies discomfort. KONG midline intact/patent. Assisted to BR w/o incidence. Condition remains essentially unchanged. Call light w/in reach. Continue w/plan of care. Original Note: Addendum entered by Awilda Chou R.N. 11/20/17 17:44: Dsgs are all CDI at this time. Original Note: Pt watching TV. Denies discomfort at this time. Lungs diminished at bases. KONG midline intact/patent. Lower extremities 1+ edema. Call light w/in reach.
[2017-11-21] MEDS: CEFAZOLIN 2 GM/100 ML FROZ.PIGGY IV ×3 (01:12→16:25)
[2017-11-21] MEDS: SODIUM CHLORIDE 0.9% FLUSH 10 ML IV ×2 (01:13→13:30)
[2017-11-21] MEDS: SODIUM CHLORIDE 0.9% 250 ML 21 ML IV (01:13)
[2017-11-21] MEDS: LINEZOLID 600 MG/300 ML IV.SOLN IV ×2 (01:52→13:30)
--- NOTE | 2017-11-21 02:31 | PC.NURSE ---
Addendum entered by Maddie Padilla R.N. 11/21/17 06:55: amend- assumed care on 8-7 at 2300. Pt slept on and off through the night. Pt up with one assist to BR. tolerated antibiotics well. will continue to monitor. Original Note: Assumed care of pt from outgoing shift at 2300 8-8. Pt awake. assessed and charted. cooperative. denies pain. IV antibiotics started. and tolerating. Pt uses call light, waits for assistance. Pt belongings and call light within reach. bed alarm on. side rails upx4 per pt request. Pt up with one assist to BR. isolation remains. will continue to monitor.
[2017-11-21 04:02] VITALS: BP 141/62; PULSE 84; RESP 20; TEMP 36.6; O2SAT 95
[2017-11-21 07:45] VITALS: BP 139/65; PULSE 81; RESP 16; TEMP 36.7; O2SAT 95
--- NOTE | 2017-11-21 08:40 | PM.CN ---
History of Present Illness Date Patient Seen: 11/20/17 Time Patient Seen: 08:00 Chief complaint: Cellulitis Pain Reason for consult: bilateral lower leg venous ulcers Requesting provider: Yvonne Stone Narrative: The patient's well known to the wound care clinic where [facility] managed her recurrent bilateral lower leg venous ulcers and chronic venous hypertension for the past few years. The ulcers were recently healed however they've since returned and she apparently began feeling unwell a few days prior to her admission for cellulitis of the lower legs. She does not report pain in the legs today and states she's feeling much better since starting on IV antibiotics. She's responded well to compression therapy in the past as well in terms of her chronic venous hypertension as well as diuretic therapy which she's been non-compliant with in the past. [facility] Medical History Morbid obesity (Acute) Stasis dermatitis (Acute) Wound of lower extremity (Acute) Surgical History H/O umbilical hernia repair (Acute) Social History household members: children Smoking Status: Never smoker Meds Home Medications Medication Instructions Recorded Confirmed Type potassium chloride 20 meq PO BID #0 08/23/16 11/17/17 History gentamicin 0 gm TOPICAL QDAY #1 08/26/16 11/17/17 Rx nystatin [Nystop] 0 gm TOPICAL BID #30 01/21/17 11/17/17 Rx acetaminophen 650 mg PO Q6HP PRN #0 05/25/17 11/17/17 History furosemide [Lasix] 80 mg PO QDAY #30 tab 05/29/17 11/17/17 Rx levofloxacin [Levaquin] 500 mg PO QDAY #7 tab 07/11/17 11/17/17 Rx linezolid [Zyvox] 600 mg PO Q12H #14 tab 07/11/17 11/17/17 Rx Allergies Allergy/AdvReac Type Severity Reaction Status Date / Time amoxicillin [From Augmentin] Allergy Severe rash, Verified 11/17/17 07:27 flushing, nausea,vomiting clavulanic acid Allergy Severe rash, Verified 11/17/17 07:27 [From Augmentin] flushing, nausea,vomiting vancomycin [VANCOMYCIN] Allergy Severe URSULA Verified 11/17/17 07:27 SYNDROME, CHILLS/SHAKING, TACHYCARDIA, HYPERTENSION codeine Allergy Intermediate hives, Verified 11/17/17 07:27 vomiting fluconazole Allergy Intermediate hives Verified 11/17/17 07:27 nafcillin Allergy Intermediate rash Verified 11/17/17 07:27 oxycodone Allergy Intermediate rash, Verified 11/17/17 07:27 MENTAL CHANGES piperacillin Allergy Intermediate rash Verified 11/17/17 07:27 fish oil Allergy Unknown Verified 11/17/17 07:27 morphine AdvReac Unknown PASS OUT, Verified 11/17/17 07:27 RACING HEART DIALUDID AdvReac Unknown MENTAL Uncoded 07/25/17 11:49 STATUS CHANGES Review of Systems Review of Systems All systems reviewed & are unremarkable except as noted in HPI and below Exam Vital Signs (past 8 hours): - 11/21/17 04:02 11/21/17 07:45 Temperature 97.8 F 98.0 F Pulse Rate 84 81 Respiratory Rate 20 16 Blood Pressure 141/62 H 139/65 H Pulse Oximetry 95 95 Oxygen Delivery Method Room Air Oxygen Flow Rate 0 Extrem Other: 3+ bilateral lower leg edema, increased considerably from previous review in clinic; moderate periulcer erythema with warmth Objective Labs Result Diagrams: 11/18/17 05:00 11/19/17 05:19 Assessment & Plan (1) Chronic venous hypertension (idiopathic) with ulcer of bilateral lower extremity: Problem details: d The bilateral lower leg cellulitis appears to be improving and based on the wound cultures growing a resistant Proteus and group B Strep I'd consider discharging the patient on oral cefdinir. She can continue on the current dressing change regimen upon discharge, wear her compression stockings at all times, and be encouraged to remain compliant with her diuretic therapy. We'll be happy to see her as well in the wound care clinic within 2-3 days of discharge at which time we'll restart compression therapy with Coban wraps. Current visit: Yes Status: Acute
[2017-11-21] MEDS: FUROSEMIDE 40 MG TABLET 80 MG PO (10:06)
[2017-11-21] MEDS: POTASSIUM CHLORIDE 20 MEQ TAB PO ×2 (10:06→21:04)
[2017-11-21] MEDS: GENTAMICIN 0.1% OINT 30 GM 1 APPLIC TOP (10:06)
[2017-11-21] MEDS: ENOXAPARIN 40 MG/0.4 ML SYRINGE SUBCUT (10:06)
[2017-11-21] MEDS: NYSTATIN POWDER 30 GM TOP ×2 (10:07→21:05)
[2017-11-21 12:00] VITALS: BP 146/78; PULSE 90; RESP 18; TEMP 36.3; O2SAT 97
--- NOTE | 2017-11-21 15:20 | CM.DPC ---
Patient had consultation with Dr. Zavala, wound clinic. Patient does not want senior care, but home health, and wound care. Patient lives in [place], so she would have a few options of agencies. P: DCP continue to plan and assess, and offer Medicare choice list of home health agencies when close to discharge. Beth Aguilera RN/Director Of Infection Prevention
[2017-11-21 16:05] VITALS: BP 145/74; PULSE 92; RESP 18; TEMP 36.6; O2SAT 95
[2017-11-21 20:08] VITALS: BP 115/68; PULSE 97; RESP 18; TEMP 36.9; O2SAT 94
[2017-11-22] MEDS: SODIUM CHLORIDE 0.9% 250 ML 21 ML IV (00:34)
[2017-11-22] MEDS: CEFAZOLIN 2 GM/100 ML FROZ.PIGGY IV ×2 (00:34→09:34)
[2017-11-22 01:04] VITALS: BP 138/64; PULSE 89; RESP 18; TEMP 36.9; O2SAT 94
[2017-11-22] MEDS: LINEZOLID 600 MG/300 ML IV.SOLN IV ×2 (01:47→14:58)
--- NOTE | 2017-11-22 02:28 | PC.NURSE ---
Assumed care of pt from outgoing shift at 2300 8-8. Pt asleep at this time, bed alarm on. call light and belongings within reach. will continue to monitor pt. Pt awake needing to toilet. up with SBA and walker. IV abx started, tolerating. assessed and charted. cooperative. denies pain. Pt uses call light, waits for assistance. Pt belongings and call light within reach. bed alarm on. side rails upx4 per pt request. Pt dozing on and off, wakes up frequently states I cant really sleep that well when I'm in the hospital. isolation remains. will continue to monitor.
[2017-11-22 04:50] VITALS: BP 158/65; PULSE 88; RESP 20; TEMP 36.8; O2SAT 95
[2017-11-22] MEDS: ACETAMINOPHEN 325 MG TABLET 650 MG PO (04:52)
[2017-11-22 07:50] VITALS: BP 137/66; PULSE 82; RESP 16; TEMP 36.4; O2SAT 95
[2017-11-22] MEDS: ENOXAPARIN 40 MG/0.4 ML SYRINGE SUBCUT (09:34)
[2017-11-22] MEDS: FUROSEMIDE 40 MG TABLET 80 MG PO (09:35)
[2017-11-22] MEDS: GENTAMICIN 0.1% OINT 30 GM 1 APPLIC TOP (09:35)
[2017-11-22] MEDS: NYSTATIN POWDER 30 GM TOP (09:35)
[2017-11-22] MEDS: POTASSIUM CHLORIDE 20 MEQ TAB PO (09:35)
--- NOTE | 2017-11-22 09:55 | PM.PN.1 ---
Subjective Date Patient Seen: 11/21/17 Interval history: No specific complaints Exam Vital Signs (past 8 hours): - 11/22/17 04:50 11/22/17 07:50 Temperature 98.2 F 97.5 F L Pulse Rate 88 82 Respiratory Rate 20 16 Blood Pressure 158/65 H 137/66 H Pulse Oximetry 95 95 Oxygen Delivery Method Room Air Oxygen Flow Rate 0 Narrative Exam Narrative: Lungs: Decreased but clear to auscultation CV: RRR nl Sl S2 Abd: obese, soft non tender Ext: 1= edema bilateral, ulcers covered, decreased erythema of legs bilaterally Objective Labs Result Diagrams: 11/18/17 05:00 11/19/17 05:19 Assessment & Plan (1) Chronic venous hypertension (idiopathic) with ulcer of bilateral lower extremity: Problem details: d The bilateral lower leg cellulitis appears to be improving and based on the wound cultures growing a resistant Proteus and group B Strep I'd consider discharging the patient on oral cefdinir. She can continue on the current dressing change regimen upon discharge, wear her compression stockings at all times, and be encouraged to remain compliant with her diuretic therapy. We'll be happy to see her as well in the wound care clinic within 2-3 days of discharge at which time we'll restart compression therapy with Coban wraps. Current visit: Yes Status: Acute (2) Morbid obesity: Current visit: Yes Status: Acute (3) Bilateral cellulitis of lower leg: Problem details: Continue IV antibiotics. Will consult Dr. estevez for definitive treatment. Continue wound care per Dr. bowens Current visit: Yes Status: Acute Quality VTE Deep Vein Thrombosis/Pulmonary Embolism Present on Admission: No
--- NOTE | 2017-11-22 10:01 | P.DS_ITS ---
History of Present Illness Date Patient Seen: 11/22/17 Time Patient Seen: 09:57 Chief complaint: Cellulitis Pain Narrative: Patient presented with swelling, redness, pain, and ulceration of both lower extremities. She was admitted to the hospital for wound care and IV antibiotics Discharge Providers Date of admission: 11/16/17 23:53 Primary care physician: Arya Beyer MD Consults: 11/17/17 01:11 Consult to Physician Routine Comment: Consulting Provider: Arya Beyer Reason for consultation: admission Has provider been notified: Yes 11/21/17 15:54 Consult to Home Health Routine Comment: Reason For Exam: leg ulcers/cellulitis 11/22/17 08:36 Consult to Home Health Routine Comment: Reason For Exam: RN/PT/OT Upon DC Discharge provider: Yvonne Stone MD Summary Discharge Diagnosis: Cellulitis bilateral lower extremities Venous insufficiency Lymphedema Leg ulcers bilaterally Morbid obesity Hospital Course: Patient was admitted to the hospital for lymphedema, cellulitis , and venous insufficiency. She received wound care treatment, antibiotics, and was seen by Dr. Zavala from wound care. She had slow but steady improvement in her symptoms and was deemed appropriate for discharge home. Status at Discharge Functional status at discharge: bed bound Overall status at discharge: patient is back to baseline Time Spent with Patient Less than 30 minutes Exam Vital Signs (past 8 hours): - 11/22/17 04:50 11/22/17 07:50 Temperature 98.2 F 97.5 F L Pulse Rate 88 82 Respiratory Rate 20 16 Blood Pressure 158/65 H 137/66 H Pulse Oximetry 95 95 Oxygen Delivery Method Room Air Oxygen Flow Rate 0 Narrative Exam Narrative: Lungs: Decreased breath sounds bilaterally CV: RRR nl S1S2 Abd: obese/soft/non tender/non distended Ext: 2+ edema bilaterally, decreased erythema, ulcerations covered on both legs Psych: pleasant, awake, and cooperative Objective Labs Result Diagrams: 11/18/17 05:00 11/19/17 05:19 Discharge Plan Discharge Plan Patient Disposition: Home, Self-Care Discharge comment: REady to discharge home with home health Provider Discharge Instructions Diet: Low-sodium Activity: as tolerated, legs elevated Skin/Wound/Dressing Care Skin care: dressing changes per home health Other wound treatment: follow up with wound clinic as outpatient Discharge Data Primary Care Provider: Arya Beyer Attending Provider: Arya Beyer Admit Date/Time: 11/16/17 23:53 Quality VTE Deep Vein Thrombosis/Pulmonary Embolism Present on Admission: No
--- NOTE | 2017-11-22 16:15 | CM.DPC ---
DC Note: Reviewed notes, pt has h/o [facility] and pt states she wants what I had before. [facility] secured today on pt's behalf for f/u either Sunday or Sunday for HH nursing. Faxed completed [facility], HH order, facesheet, H+P and wound care consult note to [facility]. Alerted June w/ [facility] that pt was going home today. Updated pt w/information above and pt appreciative. Son will be transporting pt home this evening when he gets off of work. MATILDA
== END 2017-11-22 17:00 | disposition home health service (06) | DRG 603 ==
LOC: ED 18:57 → AC 23:54
PROVIDERS: Internal Medicine; Admitting Provider Internal Medicine; Emergency Provider Emergency Medicine; Family Provider Internal Medicine; PCP Internal Medicine; Visit Provider Internal Medicine
DX: L03.115 Cellulitis of right lower limb (principal); Z68.42 Body mass index [BMI] 45.0-49.9, adult; L97.811 Non-pressure chronic ulcer of other part of right lower leg limited to breakdown of skin; I87.333 Chronic venous hypertension (idiopathic) with ulcer and inflammation of bilateral lower extremity; L97.821 Non-pressure chronic ulcer of other part of left lower leg limited to breakdown of skin; E66.01 Morbid (severe) obesity due to excess calories; L03.116 Cellulitis of left lower limb; B96.4 Proteus (mirabilis) (morganii) as the cause of diseases classified elsewhere; I89.0 Lymphedema, not elsewhere classified; B95.61 Methicillin susceptible Staphylococcus aureus infection as the cause of diseases classified elsewhere
CPT/HCPCS: 36415; 36569; 36591; 80048; 80053; 83605; 83735; 84145; 85025; 87040; 87070; 87075; 87077; 87147; 87186; 87205; 96365; 96366; 99283; 99284; J0690; J1642; J1650; J1956; J2020

== ENCOUNTER → 2017-11-26 13:34 | Outpatient (CLI) | payer MEDICARE, OTHER, SELFPAY ==
[2017-11-17 01:33] VITALS: BMI 49.2
--- NOTE | 2017-11-26 | OV.WND_ITS ---
Progress Note Details Patient Name: Tiffanie Gomez Patient Number: [id number] PatientPatientDate: 11/26/2017 Clinician: Oksana Lyman Clinician Cosigner: Kellee Lomeli Physician / Tear Down Worker: William Zavala SUBJECTIVE Chief Complaint This information was obtained from the patient Venous ulcers to bilateral lower extremities. Allergies Oxycodone (Reaction: severe mental change), Morphine (Reaction: mental change), Hydromorphone (Reaction: mental change), ampicillin (Severity: Severe, Reaction: Itchy rash), vancomycin (Severity: Severe, Reaction: Tachycardia, Chills, Hypertension, Veronika Syndrome), amoxicillin (Severity: Severe, Reaction: Rash, Flushing Nausea Vomiting.), clavulanic acid (Severity: Severe, Reaction: Rash, Flushing nausea vomiting), Codine (Severity: Moderate, Reaction: Hives Vomiting), fluconazole (Severity: Moderate, Reaction: Hives), nafcillin (Severity: Moderate, Reaction: rash), piperacillin (Severity: Moderate, Reaction: rash), fish oil HPI This information was obtained from the patient 11/26/17. Seen by Dr. Zavala. The patient returns to clinic following discharge from the hospital where she was treated for bilateral lower leg cellulitis associated with recurrence of her recently healed bilateral lower leg venous ulcers and severe chronic venous hypertension. She does not report pain in the legs, fevers, nor significant drainage from the ulcers however she's not yet picked up her antibiotics that were prescribed upon discharge. 10/18/17. Seen by Dr. Zavala. The patient does not report pain or other acute issues regarding the bilateral venous ulcers and she's tolerating compression therapy that's treating bilateral chronic venous hypertension. 10/11/17. Seen by Dr. Zavala. The patient does not report pain or other acute issues regarding the bilateral venous ulcers and she's tolerating compression therapy that's treating bilateral chronic venous hypertension however she continues to cut the tops of the wraps due to itching and rubbing. 10/04/17. Seen by Elliot Hernandez PA-C. The patient reports stable drainage from her left lower leg venous ulcers. 09/27/17. Seen by Dr. Zavala. The patient reports significant itching associated with the left lower leg compression wrap and has again cut the top portion of the wrap. She's also not been taking her diuretic as prescribed the past few days and staff feel the bilateral lower leg edema has increased considerably since her last visit. Otherwise there's no reported increasing in drainage or pain associated with the bilateral lower leg venous ulcers. 09/20/17. Seen by Dr. Zavala. The patient has tolerated compression therapy that's treating severe bilateral lower leg chronic venous hypertension and associated venous ulcers and staff do not report significant drainage on the dressings. 09/13/17. Seen by Dr. Zavala. The patient has tolerated compression therapy that' s treating severe bilateral lower leg chronic venous hypertension and associated venous ulcers and staff do not report significant drainage on the dressings. 09/06/17. Seen by Dr. Zavala. The patient does not report pain associated with bilateral lower leg venous ulcers since her last visit and she tolerated compression therapy that treating severe bilateral chronic venous hypertension without difficulty. ulcers since her last visit and she tolerated compression therapy that treating severe bilateral chronic venous hypertension without difficulty. 08/23/17. Seen by Dr. Zavala. The patient does not report increased drainage or pain associated with bilateral lower leg venous ulcers since her last visit. She reports that she arrived today without dressings over he ulcers however. Her wound culture from the last visit was unremarkable. 08/16/17. Seen by Dr. Zavala. The patient does not report increased drainage or pain associated with bilateral lower leg venous ulcers since her last visit. 08/09/17. Seen by Dr. Zavala. The patient does not report increased drainage or pain associated with bilateral lower leg venous ulcers since her last visit. 08/02/17. Seen by Dr. Zavala. The patient returns for clinic following a recent admission to the hospital for bilateral lower extremity cellulitis. She seen by her primary care provider earlier this week who increased her Lasix from 40 mg 80 mg daily. Despite this she reports significant leg swelling and monitor mental regarding whether she is taking her Lasix as prescribed. She also continues on dicloxacillin for the cellulitis. 07/05/17. Seen by Dr. Zavala. The patient does not report increased drainage or pain associated with bilateral lower leg venous ulcers since her last visit. She states that she is wearing and changing her compression stockings although the nurses note that they were dated at the last visit and do not appear to be changed since then. 06/28/17. Seen by Elliot Hernandez PA-C. The patient reports decreased drainage from her lower extremity ulcers. 06/21/17. Seen by Elliot Hernandez PA-C. The patient reports that part of her leg wraps fell down but the portion near her ankles and feet stayed in place. She does not report increased drainage from her lower extremity venous ulcers. 06/14/17. Seen by Elliot Hernandez PA-C. The patient reports no increase in drainage from her bilateral lower extremity ulcers. 06/07/17. Seen by Elliot Hernandez PA-C. The patient reports increased pain in her left foot and increased drainage from her left foot ulcer. 05/31/17. Seen by Dr. Zavala. The patient was recently discharged from the hospital following an admission for left lower leg and left foot cellulitis. She was treated with IV antibiotics and is now on oral levofloxacin and cefdinir. She was also heavily diuresed and has lost 16 pounds from her last visit. She does not report fevers, feeling unwell, nor adverse side effects of her antibiotics. 05/24/17. Seen by Elliot Hernandez PA-C. The patient reports that she has had a low grade fever 05/17/17. Seen by Elliot Hernandez PA-C. The patient reports decreased drainage from her right lower leg venous ulcers since her last evaluation. 05/10/17. Seen by Elliot Hernandez PA-C. The patient reports stable drainage from her right lower leg venous ulcers. When we noted a new ulcer, more proximal than the existing ones, she stated that this new ulcer has been continuously present for a few weeks without worsening or improving. Associated drainage from this new ulcer has been moderate with minimal, non-radiating pain noted. 05/03/17. Seen by Dr. Zavala. The patient does not report increased drainage associated with the chronic right lower leg venous ulcers since her last visit. 04/26/17. Seen by Dr. Zavala. The patient does not report increased drainage associated with the chronic right lower leg venous ulcers since her last visit and she is applying topical antibiotic to treat the MSSA positive wound culture as recommended. 04/19/17. Seen by Dr. Zavala. The patient does not report increased drainage associated with the chronic right lower leg venous ulcers since her last visit. 04/12/17. Seen by Dr. Zavala. The patient does not report pain or increased drainage associated with chronic right lower leg venous ulcers since her last visit. Recent wound culture grew MSSA plus group B streptococcus and Buttiauxella agrestis which is a gram-negative mi. She states she is taking her diuretic, applying topical gentamicin to the wound base, and wearing compression stockings to manage chronic venous hypertension as recommended. 04/05/17. Seen by Dr. Zavala. The patient does not report pain or increased drainage associated with chronic right lower leg venous ulcers since her last visit. 03/29/17. Seen by Dr. Zavala. The patient does not report pain or increased drainage associated with chronic right lower leg venous ulcers since her last visit. 03/22/17. Seen by Dr. Zavala. The patient does not report pain nor significant drainage associated with chronic right lower leg venous ulcer since her last visit. The staff report some new ulcers however over the right lower leg today. 03/15/17. Seen by Dr. Zavala. The patient does not report pain nor significant drainage associated with chronic right lower leg venous ulcer since her last visit and she's wearing her compression stocking as recommended that's treating right lower leg chronic venous hypertension. Her dressing has been in place since Sunday and the staff report some new periwound erythema and possible new areas of skin breakdown. 02/22/17. Seen by Dr. Zavala. The patient does not report pain nor significant drainage associated with chronic right lower leg venous ulcer since her last visit. 02/15/17. Seen by Dr. Zavala. The patient does not report pain nor significant drainage associated with chronic right lower leg venous ulcer since her last visit. 02/08/17. Seen by Elliot Hernandez PA-C. The patient reports she has been unable to change her dressings on her lower legs and has been unable to bathe. Her dressings have remained in place for >1 week. She is hoping to have home health come and help her with dressing changes. Of note, she does not leave the house, except for doctors appointments, and when she does leave it is with great difficulty. 01/11/17. Seen by Dr. Zavala. The patient does not report pain nor significant drainage associated with chronic right lower leg venous ulcer since her last visit. 01/04/17. Seen by Elliot Hernandez PA-C. The patient reports no increase in drainage from her lower extremity ulcers since her last evaluation. 12/28/16. Seen by Elliot Hernandez PA-C. The patient reports decreased drainage from her lower extremity ulcers. 12/21/16. Seen by Elliot Hernandez PA-C. The patient reports decreased drainage from her lower extremity ulcers since her last evaluation. 12/14/16. Seen by Elliot Hernandez PA-C. The patient reports decreased drainage from her lower extremity ulcers. 12/07/16. Seen by Dr. Zavala. The patient does not report significant drainage or pain associated with the chronic right lateral lower leg venous ulcer. The staff however report a new ulcer on the anterior right lower leg today. 11/30/16. Seen by Elliot Hernandez PA-C. The patient reports decreased drainage from her lower leg venous ulcers. 11/23/16. Seen by Dr. Zavala. The patient does not report significant drainage or pain associated with the chronic right lateral lower leg venous ulcer. The staff do report a new ulcer on the posterior left lower leg today. The patient is now being seen at the end of the day and her daughter is accompanying her due to last week's episode of flea infestation and the need for infectious control to be involved in her care plan. Adult Protective Services were also alerted over the past week however there is no feedback yet regarding their involvement. 11/16/16. Seen by Elliot Hernandez PA-C. The patient reports no increase in drainage from her right lower leg venous ulcers. Nursing reports that approximately 20-30 fleas jumped off of the patient's legs including from under her wound dressing, when it was removed. The patient denies having fleas. 11/09/16. Seen by Elliot Hernandez PA-C. The patient reports continued drainage from her right lower leg venous ulcers despite topical antimicrobial therapy. Her recent culture grees pseudomonas stutzeri with multiple sensitivities. 11/02/16. Seen by Dr. Zavala. The patient does not report increased pain associated with the chronic right lower leg venous ulcers however staff report increased colored drainage on her dressings. She does not report fevers or feeling unwell and is not currently on antibiotics. 10/24/16. Seen by Dr. Zavala. The patient does not report increased drainage or pain associated with the right lower leg venous ulcers since her last visit. 10/21/16. Seen by Elliot Hernandez PA-C. The patient's wound culture grew staph aureus. The patient reports stable drainage from her right lower leg venous ulcer. 10/12/16. Seen by Elliot Hernandez PA-C. The patient returns to us after a hospitalization and SNF stay for cellulitis of her right lower leg. Currently she has home health assisting her with her dressing changes for her right lower leg venous ulcer and they have recommended she present to us for more specialized care. 08/23/16. Seen by Dr. Zavala. The patient was unable to start her IV antibiotics that were prescribed at her visit last week due to financial limitations. She is prescribed cefepime at that time to treat the refractory and multidrug-resistant pseudomonas positive wound culture. She reports increased redness in the leg but no significant pain, fevers, or feeling unwell. 08/10/16. Seen by Dr. Zavala. The staff report significant drainage and malodor associated with the chronic right lower leg non-pressure ulcers and the patient continues on antibiotics for the recent Proteus and Enterococcus positive culture but there's a discrepancy on how many days she has left to take. She does not report pain in the leg, fevers, or feeling unwell and states she's changing the dressing twice daily. 07/26/16. Seen by Dr. Zavala. The patient continues on dual antibiotic therapy for the recent Proteus and Entercoccus positive wound cultures taken from the chronic right lower leg venous ulcers without reporting adverse side effects. She feels the larger posterior right lower leg ulcer continues to produce significant drainage but she does not report pain at the site. She states she's wearing her compression stocking and taking her diuretics as prescribed despite showing increased swelling in the leg today. She does not report fevers or feeling unwell in general. 07/20/16. Seen by Dr. Zavala. The patient does not report pain continues report drainage associated with the right chronic venous ulcers. She continues on dual antibiotic therapy without reporting adverse side effects for the recent Proteus and enterococcus positive wound cultures and does not report adverse side effects. She does not report fevers or feeling unwell in general. 07/13/16. Seen by Dr. Zavala. The patient does not report pain continues report drainage associated with the right chronic venous ulcers. She continues on dual antibiotic therapy for the recent Proteus and enterococcus positive wound cultures and does not report adverse side effects. 07/06/16. Seen by Dr. Zavala. The patient does not report pain or increased drainage associated with the chronic right lower leg venous ulcers nor right 3rd toe trauma wound. The staff however continue to report some blue-green drainage from the posterior ulcer. She states she is applying gentamicin ointment topically to the ulcers and is now off of oral antibiotics. She does not report fevers or feeling unwell. 06/29/16. Seen by Dr. Zavala. The patient continues applying topical gentamicin ointment for the Pseudomonas positive culture taken from the right lower leg venous ulcer. The staff continue to report a blue green drainage from the site however the patient does not report significant pain nor significant drainage or pain associated with the other right lower leg venous ulcers. 06/22/16. Seen by Dr. Zavala. The patient continues on antibiotics for the Pseudomonas positive culture taken from the right lower leg venous ulcer. The staff continue to report a blue green drainage from the site however the patient does not report significant pain nor significant drainage or pain associated with the other right lower leg venous ulcers. 06/15/16. Seen by Dr. Zavala. The patient continues on ciprofloxacin for the right lower leg ulcer infection which cultured Pseudomonas. She does not report adverse side effects and feels the drainage has decreased somewhat. The does not report pain at this nor the other lower leg venous ulcers and states she's wearing her compression stockings as recommended. 06/05/16. Seen by Elliot Hernandez PA-C. The patient presents today with 3 new ulcers on her right lower leg which began spontaneously. She has had stable drainage from her previous venous ulcers. 05/18/16. Seen by Dr. Zavala. The patient does not report drainage or pain associated with the bilateral lower leg venous ulcers since her last visit. Of note, the staff report blue/ green drainage on the dressing covering the right lower leg ulcer. 05/11/16. Seen by Dr. Zavala. The patient does not report drainage or pain associated with the bilateral lower leg venous ulcers since her last visit. She should have completed her levofloxacin however states she still has a few tablets left. Of note, she has a habit of not taking her antibiotics as prescribed. 05/04/16 Seen by Elliot Hernandez PA-C. The patient reports no drainage from her left leg venous ulcers since her last dressing change, though she reports a new area of drainage on the right lower anterior leg. 04/27/16. Seen by Dr. Zavala. The patient does not report drainage or pain associated with the bilateral lower leg venous ulcers since her last visit. She's now on levofloxacin and cefdinir for the recent polymicrobial wound culture and does not report adverse side effects, fevers, or feeling unwell in general 04/20/15. Seen by Dr. Zavala. The patient does not report drainage or pain associated with the bilateral lower leg venous ulcers since her last visit however staff report periwound erythema and drainage from most of the ulcers. Of note, she's to be wearing compression stockings to treat bilateral chronic venous hypertension but states she has not for the past day while they're being washed. 03/30/16. Seen by Dr. Zavala. The staff reports a number of new left lower leg venous ulcers. The patient reportedly has been wearing a larger compression stocking due to the recommended size being too tight. The patient states she's been taking her diuretic is prescribed and does not report pain or drainage associated with the bilateral lower leg venous ulcers. She is also on doxycycline now for the staph cultured from her right leg ulcer last visit. 03/23/16. Seen by Dr. Zavala. The staff report a new anterior right lower leg ulcer today however the patient is unaware of this issue. She does not report pain at the site nor at the site of the more lateral/posterior chronic non-pressure ulcer. She states she's wearing her compression stockings however staff note that they appear to be quite dirty. 03/02/16. Seen by Dr. Zavala. The patient does not report pain or significant drainage associated with the chronic right lower leg venous ulcer over the past week. She states that she is compliant in terms of taking her diuretic and wearing compression stockings although she states she did not take her diuretic prior to her appointment today. 02/24/16. Seen by Dr. Zavala. The patient does not report pain or significant drainage associated with the chronic right lower leg venous ulcer over the past week. 02/10/16. Seen by Dr. Zavala. The patient does not report pain or significant drainage associated with the chronic right lower leg venous ulcer and she states she's wearing her compression stocking and taking her diuretic as recommended to address the severe chronic venous hypertension in both leg. She states she's still taking Bactrim, and has been taking it as scheduled, despite the fact this should have run out last week. 02/03/16. Seen by Dr. Zavala. The patient does not report pain or significant drainage associated with the chronic right lower leg venous ulcer and she states she's wearing her compression stocking and taking her diuretic as recommended to address the severe chronic venous hypertension in both legs. She also continues on Bactrim for the recent MRSA positive wound culture and does not report adverse side effects. 01/27/16. Seen by Dr. Zavala. The patient does not report pain or significant drainage associated with the chronic right lower leg venous ulcer and she states she's wearing her compression stocking and taking her diuretic as recommended to address the severe chronic venous hypertension in both legs. She also continues on Bactrim for the recent MRSA and Enterobacter positive wound culture without reporting adverse side effects. 01/20/16. Seen by Dr. Zavala. The patient does not report pain or significant drainage associated with the chronic right lower leg venous ulcer and she states she's wearing her compression stocking and taking her diuretic as recommended to address the severe chronic venous hypertension in both legs. 01/13/16. Seen by Dr. Zavala. The patient does not report pain or significant drainage associated with the chronic right lower leg venous ulcer and she states she's wearing her compression stocking and taking her diuretic as recommended to address the severe chronic venous hypertension in both legs. She does not report pain or recurrence of cellulitis in the left lower leg that was recently treated during a hospital admission. 01/06/16. Seen by Dr. Zavala. The patient was recently discharged from [facility] following a hospital admission for severe left lower leg cellulitis. She feels this has resolved and she does not report significant drainage associated with remaining chronic right lower leg venous ulcer. She was treated with IV antibiotics for the cellulitis and has been on her diuretic as prescribed to address the significant bilateral chronic venous hypertension. 12/16/15. Seen by Dr. Zavala. The patient presents with her daughter today who's very concerned her mother has been having 'flu-like' symptoms and feeling quite unwell the past couple of days. The patient reports increased redness and swelling in the left lower leg along with a subjective fever. The patient does not report a cough or symptoms unrelated to her left lower leg at this time. 12/09/15. Seen by Dr. Zavala. The patient presents with a few new venous ulcers over the right lower leg. She states she's not wearing her compression stocking because she was advised as such. She's been placing a Xeroform dressing over the ulcers although we recommended Exudry. She also states she did not take her diuretic today but has been taking it as prescribed otherwise. She does not report pain associated with the right lower leg venous ulcers nor fevers or feeling unwell. 12/02/15. Seen by Dr. Zavala. The patient does not report pain or increase drainage associated with her chronic right lower leg venous ulcers over the past week. 11/11/15. Seen by Dr. Zavala. The patient states she's wearing her compression stockings and taking her diuretic as prescribed. She does not report pain or drainage associated with the chronic bilateral lower leg venous ulcers. 11/04/15. Seen by Dr. Zavala. The patient does not report significant drainage or pain associated with the bilateral venous ulcers over the past week. She's taking her diuretic as prescribed and wearing compression stockings as recommended. 10/28/15. Seen by Dr. Zavala. The patient does not report pain or significant drainage associated with the right lower leg venous ulcer in the past week. She states she's wearing her compression stockings as recommended. She's also been taking her antibiotic is prescribed to treat the right lower leg wound infection. 10/21/[address] Zavala. The patient does not report pain or significant drainage associated with the bilateral venous ulcers and states she's wearing her compression stockings and taking her diuretic as directed. Her wound culture from the last visit grew Enterobacter and Proteus and she's not current taking oral antibiotics. 10/14/[address] Zavala. The patient feels her bilateral leg swelling is decreasing and she states she remain compliant with her diuretic therapy and wearing of compression stockings to treat chronic venous hypertension and associated multiple bilateral venous ulcers. She's applying gentamicin ointment to the ulcers to treat the recent Proteus and Enterobacter positive wound culture and she does not report significant pain or drainage associated with any of the ulcers. 10/07/[address] Zavala. The patient reports continued drainage associated with the bilateral lower leg venous ulcers. She also reports minimal pain associated with the right anterior lower leg ulcer. She's not wearing her compression stockings daily as recommended and skips a dose of Lasix intermittently. 09/30/[address] Zavala. The patient reports minimal pain and drainage associated with the chronic right and left lower leg venous ulcers over the past week. 09/23/15 Seen by Elliot Hernandez PA-C. The patient reports stable drainage from her lower leg ulcers. 09/16/[address] Zavala. The patient continues to report swelling and erythema of the right lower leg and some mild discomfort associated with the distal venous ulcer. She's wearing compression stockings as recommended to treat the chronic venous hypertension and she's completed a course of cefdinir within the last week for a polymicrobial wound culture and she does no report adverse side effects. She does not report fever or feeling unwell in general otherwise. 09/09/[address] Zavala. The patient states her right lower leg pain is improving and she continues on cefdinir for the recent Staph and Proteus positive wound culture. She also states she's wearing he compression stockings as recommended. 09/02/[address] Zavala. The patient reports persistent swelling and redness of the right lower leg in the periwound areas and states she continues to take her antibiotics although she should have completed her course after her last visit. Her recent wound culture grew Proteus and MSSA. She does not report significant drainage from the bilateral lower leg venous ulcers and is wearing her compression stockings as recommended. 08/26/[address] Zavlaa. The patient does not report significant pain or drainage associated with her bilateral lower leg venous ulcers and she's now on cefdinir for a Staph and Proteus positive wound culture taken at the last visit. She feels her leg swelling and redness have improved and she's started taking her diuretic again as recommended. She's not yet wearing her compression stockings however. 08/19/[address] Zavala. The patient returns to clinic reporting new ulcers over the bilateral lower legs She reports increased swelling and redness of the right lower leg starting about two weeks ago but no fever or associated pain. She also admits to not taking her Lasix as scheduled due to urinary incontinence issues and has been unable to apply her compression stockings due to the increased swelling. 05/27/[address] Zavala. The patient does not report significant drainage from her bilateral lower leg venous ulcers and she's wearing compression stockings and taking Lasix as recommended. 05/13/[address] Zavala. The patient's weight has increased by 7 lbs since her last visit and the staff report new venous ulcers over the lower legs. The patient states she missed her lasix dosage the past two days as well but has been wearing her compression stockings daily. 04/22/[address] Zavala. The patient does not report any new leg ulcers nor significant drainage or pain from the previously documented bilateral lower leg venous ulcers. 04/15/[address] Zavala. The staff report a new left posterior left lower leg ulcer however the patient does not know how this may have occurred and states it is not painful. In fact she does not report significant drainage or pain associated with any of her bilateral lower leg venous ulcers. 04/01/[address] Zavala. The patient reports a new right anterior lower leg ulcer that she feels occurred as an abrasion from the Tetragrip compression stocking. She remains compliant with compression therapy to treat her chronic venous hypertension and bilateral lower leg venous ulcers and does not report significant pain or drainage from any. 03/18/[address] Zavala. The patient does not report any new ulcers nor significant drainage or pain associated with the chronic bilateral lower leg venous ulcers. 03/10/[address] Zavala. The patient reports a new ulcer on the right lower leg but does not report trauma to the area. She states she's wearing her compression stockings as recommended. She does not report pain or significant drainage from the bilateral lower leg chronic venous ulcers and states she's compliant with her diuretic therapy which has been treating her leg edema. 03/04/[address] Zavala. The patient reports new ulcers over both lower legs but does not recall when in the past week they occurred nor any inciting events. She continues to compression stockings as recommended for chronic venous hypertension and does not report significant pain or drainage associated with any of the venous ulcers. 02/18/[address] Zavala. The patient reports a new ulcer over the anterior right lower leg the was first noticed yesterday when taking off her compression stocking. It started as a blister and she states it's not painful. She also states she's taking her diuretic as prescribed. 01/28/[address] Zavala. The patient does not report any problems regarding her right lower leg venous ulcer and she states she's wearing her compression stockings and taking her diuretic as prescribed. 01/14/[address] Zavala. The patient does not report significant drainage or pain associated with the bilateral lower leg venous ulcers. She states she's been compliant with her diuretic therapy and compression stockings and her weight is unchanged from last week. 01/07/[address] Zavala. The patient does not report drainage or pain associated with her bilateral lower leg venous ulcers and she was able to wear her compression stockings as recommended. She also reports being compliant with her diuretic therapy. 12/31/[address] Zavala. The patient was recently discharged from the hospital following treatment for left leg cellulitis. She feels the swelling and erythema are much improved and she's completed her course of antibiotics. She has recurrence of venous ulcers over both lower legs and reports moderate drainage but no pain. She's also reports being compliant with her diuretic therapy but has not been wearing compression stockings as we've recommended repeatedly in the past. 09/18/[address] Zavala. The patient has a fever of 101.9 today and complains only of some shortness of breath. She does not report increased swelling, pain, or drainage associated with her bilateral lower leg venous ulcers and she's currently not on systemic antibiotics. 09/10/[address] Zavala. The patient states she started taking her lasix as prescribed and feels her leg swelling is decreasing. She does not report increased drainage from the bilateral lower extremity venous ulcers and is using only topical gentamicin ointment. She states she's wearing her compression stockings during the day as recommended. She's also drinking 1-2 Ensure protein drinks daily to address her protein calorie malnutrition. 09/03/[address] Zavala. The patient does not report fever or chills but admits to being noncompliant with her diuretic therapy. Her weight is up 13 lbs in the past two weeks. She also reports a rash after starting her ampicllin and stopped using it on Sunday. She also states she's drinking one Ensure daily to address her protein calorie malnutrition. 08/27/[address] Zavala. The patient has been wearing her Tetragrips to the level of the ankles as recommended. She's taking ampicillin for an Enterococcus positive wound culture reported on 08/21/14. She does not report pain or increased drainage from the venous ulcers. 08/20/[address] Zavala. The patient states she's not comfortable wearing the compression wraps and they tend to slip down her legs. She does not report pain or drainage from the bilateral lower leg venous ulcer sites and states she's much prefer using her compression stockings instead of wraps. She also continues on doxycycline and does not report adverse side effects. 08/11/14 Seen by Elliot Hernandez PA-C. The patient reports that her wraps slid down her legs again and she finds them uncomfortable and difficult to comply with. She was able to find her old Juxtalite compression stocking for her left leg only and believes her other one is lost. She also reports that she has previously used the same stocking, on both legs by alternating the application of the stockings. 07/30/14 The patient tolerated the compression wraps without difficulty and they were able to stay in place until her appointment today. She continues on doxycycline and states she has no pain associated with the leg ulcers. 07/28/14 The patient tolerated the compression wraps without difficulty and feels her bilateral lower leg ulcers are much improved. She does not report pain or increased drainage and continues on doxycycline. 07/23/14 The patient feels her leg swelling is increasing somewhat and states she wears her compression stockings most days. She does not report increase pain or drainage associated with her bilateral lower leg ulcers and she continues on doxycycline for cellulitis in the lower legs. Of note, her prealbumin was 13.7 in early June and she's was advised to drink and Ensure daily at the time. In regards to her weight it's been fluctuating recently which probably has more to do with water retention than nutrition. 07/16/14 The patient feels the drainage from her leg ulcers has decreased considerably since her last visit and she's remains compliant with her antibiotic therapy along with wearing her compression stockings as recommended. 07/09/14 The patient reports decreased pain and drainage from her venous leg ulcers. She has been compliant with her doxycycline and tetra automotive services manager compression. Her diuretics have not been changed. 07/02/14 The patient has two new ulcers on her lower legs today and is unclear as to whether she's been wearing compression stockings at home. Of note, her compression wraps have not stayed in place in the past due to the significant narrowing of her legs below the calf muscles. She also states she's on a diuretic although I do not see one on her recent discharge medication list. She' s had a 10 lb weight gain over the past 2 weeks. 06/26/14 The patient returns to the clinic with new lower leg wounds which she states were first noticed a couple of days ago but she does not recall injury to the sites. She states she' s been wearing her compression stockings as recommended. Of note, her prealbumin on 06/15/14 was 13.7. 06/17/14 The patient feels her leg swelling and ulcers are much improved and does not report increased drainage or pain. 06/10/14 The patient does not report any new issues regarding her leg ulcers however she does have a number of new wounds on the lower legs including a pressure ulcer on the left heal. She's also off of antibiotics now with no reported fever or increase in drainage. The dressings on the left leg were noted to be dried and adherent to the underlying ulcers. 06/03/14 The patient was recently discharged to [facility] from [facility] following treatment for severe left leg cellulitis an bilateral venous ulcers. She as found to have considerable fecal material over both lower legs and her wound culture grew on streptococcus. She continues on IV antibiotics and feels the leg pain is much improved. ____ Patient admitted to hospital 2 weeks ago for cellulitis in her right leg. Over ten excoriated areas on right leg, and very swollen. 08/15/12 everything went ok with the wraps. 08/19/12 Dressing came off last night. Tubigrip on 08/27/12 Arrives without tubigrip on legs. States has been wearing but not this am. Has scattered superficial ulcers over lower right leg. States been using dry skin cream. Had dressings from last , [address] mid tibia 09/03 Patient arrived to clinic with wrap intact on right leg and medigrip on left leg. States she is having no pain and that legs seem to be doing fine. 03/07/13- Patient is being seen by us today because she had cellulitis in her left leg, was admitted into the hospital on 02/20/13 and discharged on 02/28/13. Is now residing at [facility] in [facility]. Her leg has cleared up, scattered areas of erythema and some excoriations are present. Edema measurements are similar to patient's last visit. 03/28/13 Pt states she has been wearing compression stockings at home but isn't wearing them today. No new concerns or complaints. 05/02/13 has been applying cream qOday and tetrigrip stockings. now has 4 areas of wounds to right lower leg. has been taking antibiotic as prescribed 05/14/13 Dressing being changed every other day. No problems or concerns. Wearing tetragrip on right leg but was cutting circulation off in left leg so patient was is not wearing it anymore 05/21/13 Pt took dressings off this am but did not replace with a fresh dressing. PT has tetra automotive services manager to right leg only.05/28/13 Pt states she still has a rash on her abdomen that bleeds a little. 06/04/13 Dressing being changed daily. No problems or concerns 06/11/13 Pt states dressing changes going ok at home.Pt states drainage from abdominal wound has decreased and she thinks the rash around belly button has cleared. 06/18/13 Pt states she thinks things are going well. Umbillicus dressing not preformed as instructed and two pieces of foam found in umbillicus. Increase in drainage and pt states it was changed yesterday. Increased odor. 06/23/13- No new problems or concernss. Changing abdomen dressing about every other day, states no problems with dressing changes. 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 [employer], Unable to Care for Self - Does not bath Past Medical History This information was obtained from the patient Patient has a medical history of: Peripheral neuropathy Necrotizing fasciitis Childhood rheumatic fever Chronic venous hypertension (with ulcer and inflammation; bilateral lower legs; Enterococcus and Diptheroids positive culture 08/21/14) Protein calorie malnutrition - 06/15/2014 Morbid Obesity Lymphedema Surgical History This information was obtained from the patient Patient has a surgical history of: Thyroid surgery (15 years ago) Hernia repair Complaints and Symptoms This information was obtained from the patient Patient complains of: General Notes: I have reviewed and concur with the Review of Systems and Past Family Social History documents completed by the clinician, I have reviewed and concur with the Wound Assessment document completed by the clinician Cardiovascular (Central/Peripheral): Lower extremity (leg) swelling Integumentary (Hair/Skin/Nails): Open Sore Musculoskeletal: Assistive Devices Prior Wound History: Drainage, Erythema, Pain Patient denies complaints or symptoms related to: Cardiovascular (Central/Peripheral): Lower extremity (leg) resting pain Constitutional Symptoms (General Health): Chills, Fever, Marked Weight Change Ear/Nose/Mouth/Throat: Hearing Loss / Aid Gastrointestinal (GI): Nausea / Vomiting, Stomach/abdominal pain Hematologic/Lymphatic: Bleeding / Clotting Disorders, Bleeding Tendency Neurological: Loss of Protective Sensation Prior Wound History: Bleeding, Malodor Psychiatric: Memory Loss Respiratory: Oxygen Use, Shortness of Breath General Notes: Due for flu shot, will have in January Additional Information Does patient have a history of Cancer? Yes? Complete all questions.: No Medications acetaminophen ER 650 mg tablet,extended release oral 1 1 tablet extended release oral every 6-8 hours as needed Lasix 80 mg tablet oral 1 1 tablet oral once daily linezolid 600 mg tablet oral tablet oral every 12 hours potassium chloride ER 20 mEq tablet,extended release oral 1 1 tablet extended release oral twice daily levofloxacin 500 mg tablet oral tablet oral once daily gentamicin 0.1 % topical ointment topical ointment topical Nystop 100,000 unit/gram topical powder topical powder topical twice daily OBJECTIVE Constitutional Vital signs reviewed and noted. Well developed. Alert. Clean appearing.. Height/ Length: 65 in (165.1 cm), BMI: 0, Temperature: 97.1 ?F (36.17 ?C), Pulse: 93 bpm, Respiratory Rate: 18 breaths/min, Blood Pressure: 138/80 mmHg, Pulse Oximetry: 97 %. Ears, Nose, Mouth, and Throat: No clinically significant hearing loss on informal examination. Respiratory: No respiratory distress. Even respirations and without use of accessory muscles.. Cardiovascular: 3+ bilateral lower leg edema. Gastrointestinal (GI): Obese. Nondistended.. Integumentary (Hair, Skin) this visit; right and left foot ulcers extend to subcut with bases partially covered with pink granulation, remainder fibrin and slough. Wound #86 Left, Medial Leg is a chronic Full Thickness Venous Ulcer and has received a status of Not Healed. Initial wound encounter measurements are 3.5cm length x 2.1cm width x 0.1cm depth, with an area of 7.35 sq cm and a volume of 0.735 cubic cm. No tunneling has been noted. No sinus tract has been noted. No undermining has been noted. There is a moderate amount of sero- sanguineous drainage noted which has no odor. The patient reports a wound pain of level 0/10. The wound margin is attached. Wound bed has No epithelialization, No eschar, Yes slough. The periwound skin texture is normal. The periwound skin moisture is normal. The periwound skin color is normal. The temperature of the periwound skin is WNL. Periwound skin does not exhibit signs or symptoms of infection. Local Pulse is Palpable. Wound #87 Left, Anterior Leg is a chronic Full Thickness Venous Ulcer and has received a status of Not Healed. Initial wound encounter measurements are 2.4cm length x 0.5cm width x 0.2cm depth, with an area of 1.2 sq cm and a volume of 0.24 cubic cm. No tunneling has been noted. No undermining has been noted. There is a moderate amount of serous drainage noted which has no odor. The patient reports a wound pain of level 1/10. The wound margin is attached. Wound bed has No epithelialization, No eschar, Yes slough, Yes granulation. The periwound skin texture is normal. The periwound skin moisture is normal. The periwound skin color is normal. General Notes: Bridge measures 0.4 Wound #88 Right, Lateral Leg is a chronic Partial Thickness Venous Ulcer and has received a status of Not Healed. Initial wound encounter measurements are 2.1cm length x 1.5cm width x 0.2cm depth, with an area of 3.15 sq cm and a volume of 0.63 cubic cm. No tunneling has been noted. No sinus tract has been noted. No undermining has been noted. There is a moderate amount of serous drainage noted which has no odor. The patient reports a wound pain of level 0/10. The wound margin is epithelial resurfacing. Wound bed has No epithelialization, No eschar, Yes slough, No granulation. The periwound skin texture is normal. The periwound skin moisture is normal. The periwound skin color is normal. Neurological: Cranial nerves grossly intact with symmetric function normal by informal observation.. ASSESSMENT Active Problems ICD-10 (Encounter Diagnosis) L03.115 - Cellulitis of right lower limb (Encounter Diagnosis) I87.313 - Chronic venous hypertension (idiopathic) with ulcer of bilateral lower extremity (Encounter Diagnosis) L97.822 - Non-pressure chronic ulcer of other part of left lower leg with fat layer exposed (Encounter Diagnosis) L97.812 - Non-pressure chronic ulcer of other part of right lower leg with fat layer exposed (Encounter Diagnosis) Z91.19 - Patient's noncompliance with other medical treatment and regimen PROCEDURES Wound #87 (Venous Ulcer) is located on the left, anterior leg. A skin/ subcutaneous tissue level surgical debridement with a total area debrided of 1.2 sq cm was performed by William Zavala MD. Subcutaneous was removed along with devitalized tissue: exudate and slough. The following instrument (s) were used: curette. Pain control was achieved using 4% Lido. A time out was conducted prior to the start of the procedure. A minimal amount of bleeding was controlled with pressure. The procedure was tolerated well with a pain level of 0 throughout and a pain level of 0 following the procedure. Post Debridement Measurements: 2.4cm length x 0.5cm width x 0.2cm depth; with an area of 1.2 sq cm and a volume of 0.24 cubic cm; Wound #88 Wound #88 (Venous Ulcer) is located on the right, lateral leg. A skin/ subcutaneous tissue level surgical debridement with a total area debrided of 3.15 sq cm was performed by William Zavala MD. Subcutaneous was removed along with devitalized tissue: exudate and slough. The following instrument (s) were used: curette. Pain control was achieved using 4% Lido. A time out was conducted prior to the start of the procedure. A minimal amount of bleeding was controlled with pressure. The procedure was tolerated well with a pain level of 0 throughout and a pain level of 0 following the procedure. Post Debridement Measurements: 2.1cm length x 1.5cm width x 0.2cm depth; with an area of 3.15 sq cm and a volume of 0.63 cubic cm; Additional Information Muscle fascia or bone removed and sent to pathology?: No Muscle fascia or bone removed and sent to pathology?: No PLAN Wound Orders: Wound #86 Left, Medial Leg Cleanser Cleanse Wound: - With Distilled water or Normal saline. May Shower. - But keep dressings dry Dressings Pack wound: - Gentamicin to wound beds. Primary dressing: - Border foam Cover and secure with: - Hypafix tape if needed Change Dressing: - Every other day. Compression/Edema Control Elevation of leg(s) above the level of the heart when sitting. Avoid prolonged standing in one place. Single Layer Compression Hose - Tetra Size G Follow-Up Appointments Return Appointment: - - This Scribing Attestation I attest, as the nurse, that I scribed these orders for the physician. Wound #87 Left, Anterior Leg Cleanser Cleanse Wound: - With Distilled water or Normal saline. May Shower. - But keep dressings dry Dressings Primary dressing: - Border foam Cover and secure with: - Hypafix tape if needed Change Dressing: - Every other day. Follow-Up Appointments Return Appointment: - - This Scribing Attestation I attest, as the nurse, that I scribed these orders for the physician. Wound #88 Right, Lateral Leg Cleanser Cleanse Wound: - With Distilled water or Normal saline. May Shower. - But keep dressings dry Dressings Pack wound: - Gentamicin to wound beds. Primary dressing: - Border foam Cover and secure with: - Hypafix tape if needed Change Dressing: - Every other day. Compression/Edema Control Elevation of leg(s) above the level of the heart when sitting. Avoid prolonged standing in one place. Single Layer Compression Hose - Tetra Size G Follow-Up Appointments Return Appointment: - - This Scribing Attestation I attest, as the nurse, that I scribed these orders for the physician. Laboratory: Culture Wound - Right Lateral Leg I've reviewed the clinician's documentation and agree with the evaluation and plan as written. In addition the patient's ulcers demonstrate evidence of non-viable devitalized tissue and they will continue to benefit from sharp debridement to help promote granulation and expedite healing. Also, the patient's been strongly encouraged to start taking her oral antibiotic today due to persistence o right lower leg cellulitis. I've cultured the ulcer site and will adjust antibiotics accordingly and we'll plan on reapplying compression wraps at her next visit. Electronic Signature(s) Signed By: Date: William Zavala MD 11/27/2017 09:26:45 Entered By: William Zavala on 11/27/2017 07:06:42
== END ==
PROVIDERS: Family Provider Internal Medicine; PCP Internal Medicine; Visit Provider Internal Medicine
DX: I87.313 Chronic venous hypertension (idiopathic) with ulcer of bilateral lower extremity (principal); L97.512 Non-pressure chronic ulcer of other part of right foot with fat layer exposed; L97.522 Non-pressure chronic ulcer of other part of left foot with fat layer exposed; L03.115 Cellulitis of right lower limb; L03.116 Cellulitis of left lower limb
CPT/HCPCS: 11042; 87070; 87075; 87077; 87147; 87186; 87205

== ENCOUNTER → 2017-11-29 11:30 | Outpatient (CLI) | payer MEDICARE, OTHER, SELFPAY ==
[2017-11-17 01:33] VITALS: BMI 49.2
--- NOTE | 2017-11-29 | OV.WND_ITS ---
Progress Note Details Patient Name: Tiffanie Gomez Patient Number: [id number] PatientPatientDate: 11/29/2017 Clinician: Kerry Kapadia Physician / [facility] [place]: William Zavala SUBJECTIVE Chief Complaint This information was obtained from the patient Venous ulcers to bilateral lower extremities. Allergies Oxycodone (Reaction: severe mental change), Morphine (Reaction: mental change), Hydromorphone (Reaction: mental change), ampicillin (Severity: Severe, Reaction: Itchy rash), vancomycin (Severity: Severe, Reaction: Tachycardia, Chills, Hypertension, Veronika Syndrome), amoxicillin (Severity: Severe, Reaction: Rash, Flushing Nausea Vomiting.), clavulanic acid (Severity: Severe, Reaction: Rash, Flushing nausea vomiting), Codine (Severity: Moderate, Reaction: Hives Vomiting), fluconazole (Severity: Moderate, Reaction: Hives), nafcillin (Severity: Moderate, Reaction: rash), piperacillin (Severity: Moderate, Reaction: rash), fish oil HPI This information was obtained from the patient 11/29/17. Seen by Dr. Zavala. The patient does not report pain or other acute issues regarding the bilateral venous ulcers and her right lower leg culture from the last visit has grown a resistant Proteus specie and MSSA for which she's taking levofloxacin and linezolid. 11/26/17. Seen by Dr. Zavala. The patient returns to clinic following discharge from the hospital where she was treated for bilateral lower leg cellulitis associated with recurrence of her recently healed bilateral lower leg venous ulcers and severe chronic venous hypertension. She does not report pain in the legs, fevers, nor significant drainage from the ulcers however she's not yet picked up her antibiotics that were prescribed upon discharge. 10/18/17. Seen by Dr. Zavala. The patient does not report pain or other acute issues regarding the bilateral venous ulcers and she's tolerating compression therapy that's treating bilateral chronic venous hypertension. 10/11/17. Seen by Dr. Zavala. The patient does not report pain or other acute issues regarding the bilateral venous ulcers and she's tolerating compression therapy that's treating bilateral chronic venous hypertension however she continues to cut the tops of the wraps due to itching and rubbing. 10/04/17. Seen by Elliot Hernandez PA-C. The patient reports stable drainage from her left lower leg venous ulcers. 09/27/17. Seen by Dr. Zavala. The patient reports significant itching associated with the left lower leg compression wrap and has again cut the top portion of the wrap. She's also not been taking her diuretic as prescribed the past few days and staff feel the bilateral lower leg edema has increased considerably since her last visit. Otherwise there's no reported increasing in drainage or pain associated with the bilateral lower leg venous ulcers. 09/20/17. Seen by Dr. Zavala. The patient has tolerated compression therapy that's treating severe bilateral lower leg chronic venous hypertension and associated venous ulcers and staff do not report significant drainage on the dressings. 09/13/17. Seen by Dr. Zavala. The patient has tolerated compression therapy that' s treating severe bilateral lower leg chronic venous hypertension and associated venous ulcers and staff do not report significant drainage on the dressings. ulcers since her last visit and she tolerated compression therapy that treating severe bilateral chronic venous hypertension without difficulty. 08/30/17. Seen by Dr. Zavala. The patient does not report pain associated with bilateral lower leg venous ulcers since her last visit and she tolerated compression therapy that treating severe bilateral chronic venous hypertension without difficulty. 08/23/17. Seen by Dr. Zavala. The patient does not report increased drainage or pain associated with bilateral lower leg venous ulcers since her last visit. She reports that she arrived today without dressings over he ulcers however. Her wound culture from the last visit was unremarkable. 08/16/17. Seen by Dr. Zavala. The patient does not report increased drainage or pain associated with bilateral lower leg venous ulcers since her last visit. 08/09/17. Seen by Dr. Zavala. The patient does not report increased drainage or pain associated with bilateral lower leg venous ulcers since her last visit. 08/02/17. Seen by Dr. Zavala. The patient returns for clinic following a recent admission to the hospital for bilateral lower extremity cellulitis. She seen by her primary care provider earlier this week who increased her Lasix from 40 mg 80 mg daily. Despite this she reports significant leg swelling and monitor mental regarding whether she is taking her Lasix as prescribed. She also continues on dicloxacillin for the cellulitis. 07/05/17. Seen by Dr. Zavala. The patient does not report increased drainage or pain associated with bilateral lower leg venous ulcers since her last visit. She states that she is wearing and changing her compression stockings although the nurses note that they were dated at the last visit and do not appear to be changed since then. 06/28/17. Seen by Elliot Hernandez PA-C. The patient reports decreased drainage from her lower extremity ulcers. 06/21/17. Seen by Elliot Hernandez PA-C. The patient reports that part of her leg wraps fell down but the portion near her ankles and feet stayed in place. She does not report increased drainage from her lower extremity venous ulcers. 06/14/17. Seen by Elliot Hernandez PA-C. The patient reports no increase in drainage from her bilateral lower extremity ulcers. 06/07/17. Seen by Elliot Hernandez PA-C. The patient reports increased pain in her left foot and increased drainage from her left foot ulcer. 05/31/17. Seen by Dr. Zavala. The patient was recently discharged from the hospital following an admission for left lower leg and left foot cellulitis. She was treated with IV antibiotics and is now on oral levofloxacin and cefdinir. She was also heavily diuresed and has lost 16 pounds from her last visit. She does not report fevers, feeling unwell, nor adverse side effects of her antibiotics. 05/24/17. Seen by Elliot Hernandez PA-C. The patient reports that she has had a low grade fever 05/17/17. Seen by Elliot Hernandez PA-C. The patient reports decreased drainage from her right lower leg venous ulcers since her last evaluation. 05/10/17. Seen by Elliot Hernandez PA-C. The patient reports stable drainage from her right lower leg venous ulcers. When we noted a new ulcer, more proximal than the existing ones, she stated that this new ulcer has been continuously present for a few weeks without worsening or improving. Associated drainage from this new ulcer has been moderate with minimal, non-radiating pain noted. 05/03/17. Seen by Dr. Zavala. The patient does not report increased drainage associated with the chronic right lower leg venous ulcers since her last visit. 04/26/17. Seen by Dr. Zavala. The patient does not report increased drainage associated with the chronic right lower leg venous ulcers since her last visit and she is applying topical antibiotic to treat the MSSA positive wound culture as recommended. 04/19/17. Seen by Dr. Zavala. The patient does not report increased drainage associated with the chronic right lower leg venous ulcers since her last visit. 04/12/17. Seen by Dr. Zavala. The patient does not report pain or increased drainage associated with chronic right lower leg venous ulcers since her last visit. Recent wound culture grew MSSA plus group B streptococcus and Buttiauxella agrestis which is a gram-negative mi. She states she is taking her diuretic, applying topical gentamicin to the wound base, and wearing compression stockings to manage chronic venous hypertension as recommended. 04/05/17. Seen by Dr. Zavala. The patient does not report pain or increased drainage associated with chronic right lower leg venous ulcers since her last visit. 03/29/17. Seen by Dr. Zavala. The patient does not report pain or increased drainage associated with chronic right lower leg venous ulcers since her last visit. 03/22/17. Seen by Dr. Zavala. The patient does not report pain nor significant drainage associated with chronic right lower leg venous ulcer since her last visit. The staff report some new ulcers however over the right lower leg today. 03/15/17. Seen by Dr. Zavala. The patient does not report pain nor significant drainage associated with chronic right lower leg venous ulcer since her last visit and she's wearing her compression stocking as recommended that's treating right lower leg chronic venous hypertension. Her dressing has been in place since Sunday and the staff report some new periwound erythema and possible new areas of skin breakdown. 02/22/17. Seen by Dr. Zavala. The patient does not report pain nor significant drainage associated with chronic right lower leg venous ulcer since her last visit. 02/15/17. Seen by Dr. Zavala. The patient does not report pain nor significant drainage associated with chronic right lower leg venous ulcer since her last visit. 02/08/17. Seen by Elliot Hernandez PA-C. The patient reports she has been unable to change her dressings on her lower legs and has been unable to bathe. Her dressings have remained in place for >1 week. She is hoping to have home health come and help her with dressing changes. Of note, she does not leave the house, except for doctors appointments, and when she does leave it is with great difficulty. 01/11/17. Seen by Dr. Zavala. The patient does not report pain nor significant drainage associated with chronic right lower leg venous ulcer since her last visit. 01/04/17. Seen by Elliot Hernandez PA-C. The patient reports no increase in drainage from her lower extremity ulcers since her last evaluation. 12/28/16. Seen by Elliot Hernandez PA-C. The patient reports decreased drainage from her lower extremity ulcers. 12/21/16. Seen by Elliot Hernandez PA-C. The patient reports decreased drainage from her lower extremity ulcers since her last evaluation. 12/14/16. Seen by Elliot Hernandez PA-C. The patient reports decreased drainage from her lower extremity ulcers. 12/07/16. Seen by Dr. Zavala. The patient does not report significant drainage or pain associated with the chronic right lateral lower leg venous ulcer. The staff however report a new ulcer on the anterior right lower leg today. 11/30/16. Seen by Elliot Hernandez PA-C. The patient reports decreased drainage from her lower leg venous ulcers. 11/23/16. Seen by Dr. Zavala. The patient does not report significant drainage or pain associated with the chronic right lateral lower leg venous ulcer. The staff do report a new ulcer on the posterior left lower leg today. The patient is now being seen at the end of the day and her daughter is accompanying her due to last week's episode of flea infestation and the need for infectious control to be involved in her care plan. Adult Protective Services were also alerted over the past week however there is no feedback yet regarding their involvement. 11/16/16. Seen by Elliot Hernandez PA-C. The patient reports no increase in drainage from her right lower leg venous ulcers. Nursing reports that approximately 20-30 fleas jumped off of the patient's legs including from under her wound dressing, when it was removed. The patient denies having fleas. 11/09/16. Seen by Elliot Hernandez PA-C. The patient reports continued drainage from her right lower leg venous ulcers despite topical antimicrobial therapy. Her recent culture grees pseudomonas stutzeri with multiple sensitivities. 11/02/16. Seen by Dr. Zavala. The patient does not report increased pain associated with the chronic right lower leg venous ulcers however staff report increased colored drainage on her dressings. She does not report fevers or feeling unwell and is not currently on antibiotics. 10/24/16. Seen by Dr. Zavala. The patient does not report increased drainage or pain associated with the right lower leg venous ulcers since her last visit. 10/21/16. Seen by Elliot Hernandez PA-C. The patient's wound culture grew staph aureus. The patient reports stable drainage from her right lower leg venous ulcer. 10/12/16. Seen by Elliot Hernandez PA-C. The patient returns to us after a hospitalization and SNF stay for cellulitis of her right lower leg. Currently she has home health assisting her with her dressing changes for her right lower leg venous ulcer and they have recommended she present to us for more specialized care. 08/23/16. Seen by Dr. Zavala. The patient was unable to start her IV antibiotics that were prescribed at her visit last week due to financial limitations. She is prescribed cefepime at that time to treat the refractory and multidrug-resistant pseudomonas positive wound culture. She reports increased redness in the leg but no significant pain, fevers, or feeling unwell. 08/10/16. Seen by Dr. Zavala. The staff report significant drainage and malodor associated with the chronic right lower leg non-pressure ulcers and the patient continues on antibiotics for the recent Proteus and Enterococcus positive culture but there's a discrepancy on how many days she has left to take. She does not report pain in the leg, fevers, or feeling unwell and states she's changing the dressing twice daily. 07/26/16. Seen by Dr. Zavala. The patient continues on dual antibiotic therapy for the recent Proteus and Entercoccus positive wound cultures taken from the chronic right lower leg venous ulcers without reporting adverse side effects. She feels the larger posterior right lower leg ulcer continues to produce significant drainage but she does not report pain at the site. She states she's wearing her compression stocking and taking her diuretics as prescribed despite showing increased swelling in the leg today. She does not report fevers or feeling unwell in general. 07/20/16. Seen by Dr. Zavala. The patient does not report pain continues report drainage associated with the right chronic venous ulcers. She continues on dual antibiotic therapy without reporting adverse side effects for the recent Proteus and enterococcus positive wound cultures and does not report adverse side effects. She does not report fevers or feeling unwell in general. 07/13/16. Seen by Dr. Zavala. The patient does not report pain continues report drainage associated with the right chronic venous ulcers. She continues on dual antibiotic therapy for the recent Proteus and enterococcus positive wound cultures and does not report adverse side effects. 07/06/16. Seen by Dr. Zavala. The patient does not report pain or increased drainage associated with the chronic right lower leg venous ulcers nor right 3rd toe trauma wound. The staff however continue to report some blue-green drainage from the posterior ulcer. She states she is applying gentamicin ointment topically to the ulcers and is now off of oral antibiotics. She does not report fevers or feeling unwell. 06/29/16. Seen by Dr. Zavala. The patient continues applying topical gentamicin ointment for the Pseudomonas positive culture taken from the right lower leg venous ulcer. The staff continue to report a blue green drainage from the site however the patient does not report significant pain nor significant drainage or pain associated with the other right lower leg venous ulcers. 06/22/16. Seen by Dr. Zavala. The patient continues on antibiotics for the Pseudomonas positive culture taken from the right lower leg venous ulcer. The staff continue to report a blue green drainage from the site however the patient does not report significant pain nor significant drainage or pain associated with the other right lower leg venous ulcers. 06/15/16. Seen by Dr. Zavala. The patient continues on ciprofloxacin for the right lower leg ulcer infection which cultured Pseudomonas. She does not report adverse side effects and feels the drainage has decreased somewhat. The does not report pain at this nor the other lower leg venous ulcers and states she's wearing her compression stockings as recommended. 06/05/16. Seen by Elliot Hernandez PA-C. The patient presents today with 3 new ulcers on her right lower leg which began spontaneously. She has had stable drainage from her previous venous ulcers. 05/18/16. Seen by Dr. Zavala. The patient does not report drainage or pain associated with the bilateral lower leg venous ulcers since her last visit. Of note, the staff report blue/ green drainage on the dressing covering the right lower leg ulcer. 05/11/16. Seen by Dr. Zavala. The patient does not report drainage or pain associated with the bilateral lower leg venous ulcers since her last visit. She should have completed her levofloxacin however states she still has a few tablets left. Of note, she has a habit of not taking her antibiotics as prescribed. 05/04/16 Seen by Elilot Hernandez PA-C. The patient reports no drainage from her left leg venous ulcers since her last dressing change, though she reports a new area of drainage on the right lower anterior leg. 04/27/16. Seen by Dr. Zavala. The patient does not report drainage or pain associated with the bilateral lower leg venous ulcers since her last visit. She's now on levofloxacin and cefdinir for the recent polymicrobial wound culture and does not report adverse side effects, fevers, or feeling unwell in general 04/20/15. Seen by Dr. Zavala. The patient does not report drainage or pain associated with the bilateral lower leg venous ulcers since her last visit however staff report periwound erythema and drainage from most of the ulcers. Of note, she's to be wearing compression stockings to treat bilateral chronic venous hypertension but states she has not for the past day while they're being washed. 03/30/16. Seen by Dr. Zavala. The staff reports a number of new left lower leg venous ulcers. The patient reportedly has been wearing a larger compression stocking due to the recommended size being too tight. The patient states she's been taking her diuretic is prescribed and does not report pain or drainage associated with the bilateral lower leg venous ulcers. She is also on doxycycline now for the staph cultured from her right leg ulcer last visit. 03/23/16. Seen by Dr. Zavala. The staff report a new anterior right lower leg ulcer today however the patient is unaware of this issue. She does not report pain at the site nor at the site of the more lateral/posterior chronic non-pressure ulcer. She states she's wearing her compression stockings however staff note that they appear to be quite dirty. 03/02/16. Seen by Dr. Zavala. The patient does not report pain or significant drainage associated with the chronic right lower leg venous ulcer over the past week. She states that she is compliant in terms of taking her diuretic and wearing compression stockings although she states she did not take her diuretic prior to her appointment today. 02/24/16. Seen by Dr. Zavala. The patient does not report pain or significant drainage associated with the chronic right lower leg venous ulcer over the past week. 02/10/16. Seen by Dr. Zavala. The patient does not report pain or significant drainage associated with the chronic right lower leg venous ulcer and she states she's wearing her compression stocking and taking her diuretic as recommended to address the severe chronic venous hypertension in both leg. She states she's still taking Bactrim, and has been taking it as scheduled, despite the fact this should have run out last week. 02/03/16. Seen by Dr. Zavala. The patient does not report pain or significant drainage associated with the chronic right lower leg venous ulcer and she states she's wearing her compression stocking and taking her diuretic as recommended to address the severe chronic venous hypertension in both legs. She also continues on Bactrim for the recent MRSA positive wound culture and does not report adverse side effects. 01/27/16. Seen by Dr. Zavala. The patient does not report pain or significant drainage associated with the chronic right lower leg venous ulcer and she states she's wearing her compression stocking and taking her diuretic as recommended to address the severe chronic venous hypertension in both legs. She also continues on Bactrim for the recent MRSA and Enterobacter positive wound culture without reporting adverse side effects. 01/20/16. Seen by Dr. Zavala. The patient does not report pain or significant drainage associated with the chronic right lower leg venous ulcer and she states she's wearing her compression stocking and taking her diuretic as recommended to address the severe chronic venous hypertension in both legs. 01/13/16. Seen by Dr. Zavala. The patient does not report pain or significant drainage associated with the chronic right lower leg venous ulcer and she states she's wearing her compression stocking and taking her diuretic as recommended to address the severe chronic venous hypertension in both legs. She does not report pain or recurrence of cellulitis in the left lower leg that was recently treated during a hospital admission. 01/06/16. Seen by Dr. Zavala. The patient was recently discharged from shelter following a hospital admission for severe left lower leg cellulitis. She feels this has resolved and she does not report significant drainage associated with remaining chronic right lower leg venous ulcer. She was treated with IV antibiotics for the cellulitis and has been on her diuretic as prescribed to address the significant bilateral chronic venous hypertension. 12/16/15. Seen by Dr. Zavala. The patient presents with her daughter today who's very concerned her mother has been having 'flu-like' symptoms and feeling quite unwell the past couple of days. The patient reports increased redness and swelling in the left lower leg along with a subjective fever. The patient does not report a cough or symptoms unrelated to her left lower leg at this time. 12/09/15. Seen by Dr. Zavala. The patient presents with a few new venous ulcers over the right lower leg. She states she's not wearing her compression stocking because she was advised as such. She's been placing a Xeroform dressing over the ulcers although we recommended Exudry. She also states she did not take her diuretic today but has been taking it as prescribed otherwise. She does not report pain associated with the right lower leg venous ulcers nor fevers or feeling unwell. 12/02/15. Seen by Dr. Zavala. The patient does not report pain or increase drainage associated with her chronic right lower leg venous ulcers over the past week. 11/11/15. Seen by Dr. Zavala. The patient states she's wearing her compression stockings and taking her diuretic as prescribed. She does not report pain or drainage associated with the chronic bilateral lower leg venous ulcers. 11/04/15. Seen by Dr. Zavala. The patient does not report significant drainage or pain associated with the bilateral venous ulcers over the past week. She's taking her diuretic as prescribed and wearing compression stockings as recommended. 10/28/15. Seen by Dr. Zavala. The patient does not report pain or significant drainage associated with the right lower leg venous ulcer in the past week. She states she's wearing her compression stockings as recommended. She's also been taking her antibiotic is prescribed to treat the right lower leg wound infection. 10/21/[address] Zavala. The patient does not report pain or significant drainage associated with the bilateral venous ulcers and states she's wearing her compression stockings and taking her diuretic as directed. Her wound culture from the last visit grew Enterobacter and Proteus and she's not current taking oral antibiotics. 10/14/[address] Zavala. The patient feels her bilateral leg swelling is decreasing and she states she remain compliant with her diuretic therapy and wearing of compression stockings to treat chronic venous hypertension and associated multiple bilateral venous ulcers. She's applying gentamicin ointment to the ulcers to treat the recent Proteus and Enterobacter positive wound culture and she does not report significant pain or drainage associated with any of the ulcers. 10/07/[address] Zavala. The patient reports continued drainage associated with the bilateral lower leg venous ulcers. She also reports minimal pain associated with the right anterior lower leg ulcer. She's not wearing her compression stockings daily as recommended and skips a dose of Lasix intermittently. 09/30/[address] Zavala. The patient reports minimal pain and drainage associated with the chronic right and left lower leg venous ulcers over the past week. 09/23/15 Seen by Elliot Hernandez PA-C. The patient reports stable drainage from her lower leg ulcers. 09/16/[address] Zavala. The patient continues to report swelling and erythema of the right lower leg and some mild discomfort associated with the distal venous ulcer. She's wearing compression stockings as recommended to treat the chronic venous hypertension and she's completed a course of cefdinir within the last week for a polymicrobial wound culture and she does no report adverse side effects. She does not report fever or feeling unwell in general otherwise. 09/09/[address] Zavala. The patient states her right lower leg pain is improving and she continues on cefdinir for the recent Staph and Proteus positive wound culture. She also states she's wearing he compression stockings as recommended. 09/02/[address] Zavala. The patient reports persistent swelling and redness of the right lower leg in the periwound areas and states she continues to take her antibiotics although she should have completed her course after her last visit. Her recent wound culture grew Proteus and MSSA. She does not report significant drainage from the bilateral lower leg venous ulcers and is wearing her compression stockings as recommended. 08/26/[address] Zavala. The patient does not report significant pain or drainage associated with her bilateral lower leg venous ulcers and she's now on cefdinir for a Staph and Proteus positive wound culture taken at the last visit. She feels her leg swelling and redness have improved and she's started taking her diuretic again as recommended. She's not yet wearing her compression stockings however. 08/19/[address] Zavala. The patient returns to clinic reporting new ulcers over the bilateral lower legs She reports increased swelling and redness of the right lower leg starting about two weeks ago but no fever or associated pain. She also admits to not taking her Lasix as scheduled due to urinary incontinence issues and has been unable to apply her compression stockings due to the increased swelling. 05/27/[address] Zavala. The patient does not report significant drainage from her bilateral lower leg venous ulcers and she's wearing compression stockings and taking Lasix as recommended. 05/13/[address] Zavala. The patient's weight has increased by 7 lbs since her last visit and the staff report new venous ulcers over the lower legs. The patient states she missed her lasix dosage the past two days as well but has been wearing her compression stockings daily. 04/22/[address] Zavala. The patient does not report any new leg ulcers nor significant drainage or pain from the previously documented bilateral lower leg venous ulcers. 04/15/[address] Zavala. The staff report a new left posterior left lower leg ulcer however the patient does not know how this may have occurred and states it is not painful. In fact she does not report significant drainage or pain associated with any of her bilateral lower leg venous ulcers. 04/01/[address] Zavala. The patient reports a new right anterior lower leg ulcer that she feels occurred as an abrasion from the Tetragrip compression stocking. She remains compliant with compression therapy to treat her chronic venous hypertension and bilateral lower leg venous ulcers and does not report significant pain or drainage from any. 03/18/[address] Zavala. The patient does not report any new ulcers nor significant drainage or pain associated with the chronic bilateral lower leg venous ulcers. 03/10/[address] Zavala. The patient reports a new ulcer on the right lower leg but does not report trauma to the area. She states she's wearing her compression stockings as recommended. She does not report pain or significant drainage from the bilateral lower leg chronic venous ulcers and states she's compliant with her diuretic therapy which has been treating her leg edema. 03/04/[address] Zavala. The patient reports new ulcers over both lower legs but does not recall when in the past week they occurred nor any inciting events. She continues to compression stockings as recommended for chronic venous hypertension and does not report significant pain or drainage associated with any of the venous ulcers. 02/18/[address] Zavala. The patient reports a new ulcer over the anterior right lower leg the was first noticed yesterday when taking off her compression stocking. It started as a blister and she states it's not painful. She also states she's taking her diuretic as prescribed. 01/28/[address] Zavala. The patient does not report any problems regarding her right lower leg venous ulcer and she states she's wearing her compression stockings and taking her diuretic as prescribed. 01/14/[address] Zavala. The patient does not report significant drainage or pain associated with the bilateral lower leg venous ulcers. She states she's been compliant with her diuretic therapy and compression stockings and her weight is unchanged from last week. 01/07/[address] Zavala. The patient does not report drainage or pain associated with her bilateral lower leg venous ulcers and she was able to wear her compression stockings as recommended. She also reports being compliant with her diuretic therapy. 12/31/[address] Zavala. The patient was recently discharged from the hospital following treatment for left leg cellulitis. She feels the swelling and erythema are much improved and she's completed her course of antibiotics. She has recurrence of venous ulcers over both lower legs and reports moderate drainage but no pain. She's also reports being compliant with her diuretic therapy but has not been wearing compression stockings as we've recommended repeatedly in the past. 09/18/[address] Zavala. The patient has a fever of 101.9 today and complains only of some shortness of breath. She does not report increased swelling, pain, or drainage associated with her bilateral lower leg venous ulcers and she's currently not on systemic antibiotics. 09/10/[address] Zavala. The patient states she started taking her lasix as prescribed and feels her leg swelling is decreasing. She does not report increased drainage from the bilateral lower extremity venous ulcers and is using only topical gentamicin ointment. She states she's wearing her compression stockings during the day as recommended. She's also drinking 1-2 Ensure protein drinks daily to address her protein calorie malnutrition. 09/03/[address] Zavala. The patient does not report fever or chills but admits to being noncompliant with her diuretic therapy. Her weight is up 13 lbs in the past two weeks. She also reports a rash after starting her ampicllin and stopped using it on Sunday. She also states she's drinking one Ensure daily to address her protein calorie malnutrition. 08/27/[address] Zavala. The patient has been wearing her Tetragrips to the level of the ankles as recommended. She's taking ampicillin for an Enterococcus positive wound culture reported on 08/21/14. She does not report pain or increased drainage from the venous ulcers. 08/20/[address] Zavala. The patient states she's not comfortable wearing the compression wraps and they tend to slip down her legs. She does not report pain or drainage from the bilateral lower leg venous ulcer sites and states she's much prefer using her compression stockings instead of wraps. She also continues on doxycycline and does not report adverse side effects. 08/11/14 Seen by Elliot Hernandez PA-C. The patient reports that her wraps slid down her legs again and she finds them uncomfortable and difficult to comply with. She was able to find her old Juxtalite compression stocking for her left leg only and believes her other one is lost. She also reports that she has previously used the same stocking, on both legs by alternating the application of the stockings. 07/30/14 The patient tolerated the compression wraps without difficulty and they were able to stay in place until her appointment today. She continues on doxycycline and states she has no pain associated with the leg ulcers. 07/28/14 The patient tolerated the compression wraps without difficulty and feels her bilateral lower leg ulcers are much improved. She does not report pain or increased drainage and continues on doxycycline. 07/23/14 The patient feels her leg swelling is increasing somewhat and states she wears her compression stockings most days. She does not report increase pain or drainage associated with her bilateral lower leg ulcers and she continues on doxycycline for cellulitis in the lower legs. Of note, her prealbumin was 13.7 in early June and she's was advised to drink and Ensure daily at the time. In regards to her weight it's been fluctuating recently which probably has more to do with water retention than nutrition. 07/16/14 The patient feels the drainage from her leg ulcers has decreased considerably since her last visit and she's remains compliant with her antibiotic therapy along with wearing her compression stockings as recommended. 07/09/14 The patient reports decreased pain and drainage from her venous leg ulcers. She has been compliant with her doxycycline and tetra commercial engineer compression. Her diuretics have not been changed. 07/02/14 The patient has two new ulcers on her lower legs today and is unclear as to whether she's been wearing compression stockings at home. Of note, her compression wraps have not stayed in place in the past due to the significant narrowing of her legs below the calf muscles. She also states she's on a diuretic although I do not see one on her recent discharge medication list. She' s had a 10 lb weight gain over the past 2 weeks. 06/26/14 The patient returns to the clinic with new lower leg wounds which she states were first noticed a couple of days ago but she does not recall injury to the sites. She states she' s been wearing her compression stockings as recommended. Of note, her prealbumin on 06/15/14 was 13.7. 06/17/14 The patient feels her leg swelling and ulcers are much improved and does not report increased drainage or pain. 06/10/14 The patient does not report any new issues regarding her leg ulcers however she does have a number of new wounds on the lower legs including a pressure ulcer on the left heal. She's also off of antibiotics now with no reported fever or increase in drainage. The dressings on the left leg were noted to be dried and adherent to the underlying ulcers. 06/03/14 The patient was recently discharged to [facility] from [facility] following treatment for severe left leg cellulitis an bilateral venous ulcers. She as found to have considerable fecal material over both lower legs and her wound culture grew on streptococcus. She continues on IV antibiotics and feels the leg pain is much improved. ____ Patient admitted to hospital 2 weeks ago for cellulitis in her right leg. Over ten excoriated areas on right leg, and very swollen. 08/15/12 everything went ok with the wraps. 08/19/12 Dressing came off last night. Tubigrip on 08/27/12 Arrives without tubigrip on legs. States has been wearing but not this am. Has scattered superficial ulcers over lower right leg. States been using dry skin cream. Had dressings from last , [address] mid tibia 09/03 Patient arrived to clinic with wrap intact on right leg and medigrip on left leg. States she is having no pain and that legs seem to be doing fine. 03/07/13- Patient is being seen by us today because she had cellulitis in her left leg, was admitted into the hospital on 02/20/13 and discharged on 02/28/13. Is now residing at [facility]. Her leg has cleared up, scattered areas of erythema and some excoriations are present. Edema measurements are similar to patient's last visit. 03/28/13 Pt states she has been wearing compression stockings at home but isn't wearing them today. No new concerns or complaints. 05/02/13 has been applying cream qOday and tetrigrip stockings. now has 4 areas of wounds to right lower leg. has been taking antibiotic as prescribed 05/14/13 Dressing being changed every other day. No problems or concerns. Wearing tetragrip on right leg but was cutting circulation off in left leg so patient was is not wearing it anymore 05/21/13 Pt took dressings off this am but did not replace with a fresh dressing. PT has tetra commercial engineer to right leg only.05/28/13 Pt states she still has a rash on her abdomen that bleeds a little. 06/04/13 Dressing being changed daily. No problems or concerns 06/11/13 Pt states dressing changes going ok at home.Pt states drainage from abdominal wound has decreased and she thinks the rash around belly button has cleared. 06/18/13 Pt states she thinks things are going well. Umbillicus dressing not preformed as instructed and two pieces of foam found in umbillicus. Increase in drainage and pt states it was changed yesterday. Increased odor. 06/23/13- No new problems or concernss. Changing abdomen dressing about every other day, states no problems with dressing changes. Past Medical History This information was obtained from the patient Patient has a medical history of: Peripheral neuropathy Necrotizing fasciitis Childhood rheumatic fever Chronic venous hypertension (with ulcer and inflammation; bilateral lower legs; Enterococcus and Diptheroids positive culture 08/21/14) Protein calorie malnutrition - 06/15/2014 Morbid Obesity Lymphedema Complaints and Symptoms This information was obtained from the patient Patient complains of: General Notes: I have reviewed and concur with the Review of Systems and Past Family Social History documents completed by the clinician, I have reviewed and concur with the Wound Assessment document completed by the clinician Cardiovascular (Central/Peripheral): Lower extremity (leg) swelling Integumentary (Hair/Skin/Nails): Open Sore Musculoskeletal: Assistive Devices Prior Wound History: Drainage, Erythema, Pain Patient denies complaints or symptoms related to: Cardiovascular (Central/Peripheral): Lower extremity (leg) resting pain Constitutional Symptoms (General Health): Chills, Fever, Marked Weight Change Ear/Nose/Mouth/Throat: Hearing Loss / Aid Gastrointestinal (GI): Nausea / Vomiting, Stomach/abdominal pain Hematologic/Lymphatic: Bleeding / Clotting Disorders, Bleeding Tendency Neurological: Loss of Protective Sensation Prior Wound History: Bleeding, Malodor Psychiatric: Memory Loss Respiratory: Oxygen Use, Shortness of Breath Additional Information Does patient have a history of Cancer? Yes? Complete all questions.: No OBJECTIVE Constitutional BP elevated; Afebrile; Alert and in no distress. Well developed. Alert. Clean appearing.. Height/Length: 65 in (165.1 cm), Weight: 291.1 lbs (132.32 kgs), BMI: 48.4, Temperature: 97.6 ? F (36.44 ?C), Pulse: 40 bpm, Respiratory Rate: 18 breaths/min, Blood Pressure: 155/64 mmHg, Pulse Oximetry: 97 %. Ears, Nose, Mouth, and Throat: No clinically significant hearing loss on informal examination. Respiratory: No respiratory distress. Even respirations and without use of accessory muscles.. Cardiovascular: 3+ bilateral lower leg edema; increased from last visit. Gastrointestinal (GI): Obese. Nondistended.. Integumentary (Hair, Skin) Mild periwound erythema with warmth. Refer to appropriate clinician wound documentation for this visit; right and left lower leg ulcers extend to subcut with bases partially covered with pink granulation, remainder fibrin and slough. Wound #86 Left, Medial Leg is a chronic Full Thickness Venous Ulcer and has received a status of Not Healed. Subsequent wound encounter measurements are 0.7cm length x 1cm width x 0.1cm depth, with an area of 0.7 sq cm and a volume of 0.07 cubic cm. No tunneling has been noted. No sinus tract has been noted. No undermining has been noted. There is a moderate amount of sero- sanguineous drainage noted which has no odor. The patient reports a wound pain of level 0/10. The wound margin is attached. Wound bed has No epithelialization, No eschar, Yes slough, Yes bright red, firm granulation. The periwound skin texture is normal. The periwound skin moisture is normal. The periwound skin color is normal. The temperature of the periwound skin is WNL. Periwound skin presents with s/s of infection. Confirmation Description and Treatment Plan is: Confirmed Systemic, Systemic Antibiotics Prescribed. Loca Pulse is Palpable. Wound #87 Left, Anterior Leg is a chronic Full Thickness Venous Ulcer and has received a status of Not Healed. Subsequent wound encounter measurements are 0.5cm length x 1.5cm width x 0.1cm depth, with an area of 0.75 sq cm and a volume of 0.075 cubic cm. No tunneling has been noted. No sinus tract has been noted. No undermining has been noted. There is a moderate amount of serous drainage noted which has no odor. The patient reports a wound pain of level 1/10. The wound margin is attached. Wound bed has No epithelialization, No eschar, Yes slough, No granulation. The periwound skin texture is normal. The periwound skin moisture is normal. The periwound skin color is normal. The temperature of the periwound skin is WNL. Periwound skin presents with s/s of infection. Confirmation Description and Treatment Plan is: Confirmed Systemic, Systemic Antibiotics Prescribed. Loca Pulse is Palpable. Wound #88 Right, Lateral Leg is a chronic Partial Thickness Venous Ulcer and has received a status of Not Healed. Subsequent wound encounter measurements are 4cm length x 3cm width x 0.2cm depth, with an area of 12 sq cm and a volume of 2.4 cubic cm. No tunneling has been noted. No sinus tract has been noted. No undermining has been noted. There is a moderate amount of serous drainage noted which has no odor. The patient reports a wound pain of level 0/10. The wound margin is epithelial resurfacing. Wound bed has No epithelialization, No eschar, Yes slough, Yes bright red, firm granulation. The periwound skin texture is normal. The periwound skin moisture is normal. The periwound skin color is normal. The temperature of the periwound skin is WNL. Periwound skin presents with s/s of infection. Confirmation Description and Treatment Plan is: Confirmed Systemic, Systemic Antibiotics Prescribed. Loca Pulse is Palpable. Neurological: Cranial nerves grossly intact with symmetric function normal by informal observation.. ASSESSMENT Active Problems ICD-10 (Encounter Diagnosis) L03.115 - Cellulitis of right lower limb (Encounter Diagnosis) I87.313 - Chronic venous hypertension (idiopathic) with ulcer of bilateral lower extremity (Encounter Diagnosis) L97.822 - Non-pressure chronic ulcer of other part of left lower leg with fat layer exposed (Encounter Diagnosis) L97.812 - Non-pressure chronic ulcer of other part of right lower leg with fat layer exposed PROCEDURES Wound #86 Wound #86 (Venous Ulcer) is located on the left, medial leg. A skin/ subcutaneous tissue level surgical debridement with a total area debrided of 0.7 sq cm was performed by William Zavala MD. Subcutaneous was removed along with devitalized tissue: slough. The following instrument(s) were used curette. Pain control was achieved using 4% Lido. A time out was conducted prior to the start of the procedure. A minimal amount of bleeding was controlled with n/a. The procedure was tolerated well with a pain level of 0 throughout and a pain level of 0 following the procedure. Post Debridement Measurements: 0.7cm length x 1cm width x 0.2cm depth; with an area of 0.7 sq cm and a volume of 0.14 cubic cm; Wound #86 (Venous Ulcer) is located on the left, medial leg. A Multilayer Compression procedure was performed by William Zavala MD. General Notes: coban 2 Wound #87 Wound #87 (Venous Ulcer) is located on the left, anterior leg. A skin/ subcutaneous tissue level surgical debridement with a total area debrided of 0.75 sq cm was performed by William Zavala MD. Subcutaneous was removed along with devitalized tissue: slough. The following instrument(s) were used curette. Pain control was achieved using 4% Lido. A time out was conducted prior to the start of the procedure. A minimal amount of bleeding was controlled with n/a. The procedure was tolerated well with a pain level of 0 throughout and a pain level of 0 following the procedure. Post Debridement Measurements: 0.5cm length x 1.5cm width x 0.2cm depth; with an area of 0.75 sq cm and a volume of Wound #88 Wound #88 (Venous Ulcer) is located on the right, lateral leg. A skin/ subcutaneous tissue level surgical debridement with a total area debrided of 12 sq cm was performed by William Zavala MD. Subcutaneous was removed along with devitalized tissue: slough. The following instrument(s) were used curette. Pain control was achieved using 4% Lido. A time out was conducted prior to the start of the procedure. A minimal amount of bleeding was controlled with n/a. The procedure was tolerated well with a pain level of 0 throughout and a pain level of 0 following the procedure. Post Debridement Measurements: 4cm length x 3cm width x 0.3cm depth; with an area of 12 sq cm and a volume of 3.6 cubic cm; Wound #88 (Venous Ulcer) is located on the right, lateral leg. A Multilayer Compression procedure was performed by William Zavala MD. General Notes: coban 2 Additional Information Muscle fascia or bone removed and sent to pathology?: No Muscle fascia or bone removed and sent to pathology?: No Muscle fascia or bone removed and sent to pathology?: No PLAN Wound Orders: Wound #86 Left, Medial Leg Anesthetic Topical Xylocaine to wound bed. Cleanser Cleanse Wound: - With Distilled water or Normal saline. May Shower. - But keep dressings dry Dressings Pack wound: - Gentamicin to wound beds. Primary dressing: - Border foam Change Dressing: - Every other day. Wound #87 Left, Anterior Leg Anesthetic Topical Xylocaine to wound bed. Cleanser Cleanse Wound: - With Distilled water or Normal saline. May Shower. - But keep dressings dry Dressings Pack wound: - Gentamicin to wound beds. Primary dressing: - Border foam Change Dressing: - Every other day. Wound #88 Right, Lateral Leg Anesthetic Topical Xylocaine to wound bed. Cleanser Cleanse Wound: - With Distilled water or Normal saline. May Shower. - But keep dressings dry Dressings Pack wound: - Gentamicin to wound beds. Primary dressing: - Border foam Change Dressing: - Every other day. Additional Orders: Compression/Edema Control Elevation of leg(s) above the level of the heart when sitting. Avoid prolonged standing in one place. Multi Layer Wrap: - Coban 2 compression wrap. Do not get leg(s) with compression wrap wet. If wraps are too tight call the wound care center or remove if you are unable to reach the center. Please remove wraps for numbness, tingling, pain in legs or color changes in toes and call the clinic the same day. If symptoms do not resolve after removing wraps please go to the ER for evaluation. Local pharmacies carry plastic cast protectors that may be used for protection while showering. Follow-Up Appointments Return Appointment: - - One week Other information: If you develop fever, chills, increased pain, drainage, redness or swelling please call our office. If after hours, respond to the ER. Should you experience any significant changes in your wound(s) or have any questions regarding your home care instructions please contact the wound center @ [phone]. If after hours, contact your primary care physician or go to the hospital emergency room. Scribing Attestation I attest, as the nurse, that I scribed these orders for the physician. General Notes: Please complete oral antibiotics. No need for Home health to preform dressing changes at this time. I've reviewed the clinician's documentation and agree with the evaluation and plan as written. In addition the patient's ulcers demonstrate evidence of non-viable devitalized tissue and they will continue to benefit from sharp debridement to help promote granulation and expedite healing. Also, the patient will complete her course of antibiotics as scheduled and we' ve restarted compression therapy with Coban wraps today. Electronic Signature(s) Signed By: Date: William Zavala MD 11/30/2017 09:29:15 Entered By: William Zavala on 11/29/2017 13:29:36
== END ==
PROVIDERS: Family Provider Internal Medicine; PCP Internal Medicine; Visit Provider Internal Medicine
DX: I87.313 Chronic venous hypertension (idiopathic) with ulcer of bilateral lower extremity (principal); L97.822 Non-pressure chronic ulcer of other part of left lower leg with fat layer exposed; L97.812 Non-pressure chronic ulcer of other part of right lower leg with fat layer exposed; L03.115 Cellulitis of right lower limb
CPT/HCPCS: 11042

== ENCOUNTER → 2017-12-06 09:34 | Outpatient (CLI) | payer MEDICARE, OTHER, SELFPAY ==
[2017-11-17 01:33] VITALS: BMI 49.2
== END ==
PROVIDERS: Family Provider Internal Medicine; PCP Internal Medicine; Visit Provider Internal Medicine
DX: I87.2 Venous insufficiency (chronic) (peripheral) (principal); L97.822 Non-pressure chronic ulcer of other part of left lower leg with fat layer exposed; L97.812 Non-pressure chronic ulcer of other part of right lower leg with fat layer exposed; Z91.19 Patient's noncompliance with other medical treatment and regimen
CPT/HCPCS: 11042

== ENCOUNTER → 2017-12-06 10:42 | Outpatient (CLI) | payer MEDICARE, OTHER, SELFPAY ==
[2017-11-17 01:33] VITALS: BMI 49.2
[2017-12-06 11:33] LABS: BUN Creatinine Ratio 18.8 (6-22); Blood Urea Nitrogen 15 mg/dL (7-17); Calcium 9.1 mg/dL (8.4-10.2); Carbon Dioxide 27 mmol/L (22-32); Chloride 106 mmol/L (98-107); Cholesterol 170 mg/dL (140-199); Estimated Glomerular Filt Rate > 60.0 mL/min (>60); Glucose 93 mg/dL (80-110); HDL Cholesterol 53 mg/dL (40-60); HEMOLYSIS 42 (0-50); LDL Cholesterol Calculated 82 mg/dL (<100); Potassium 4.4 mmol/L (3.4-5.1); Sodium 142 mmol/L (137-145); Triglycerides 176 mg/dL (35-150)
== END ==
PROVIDERS: Family Provider Internal Medicine; PCP Internal Medicine; Visit Provider Internal Medicine
DX: R60.9 Edema, unspecified (principal); I10 Essential (primary) hypertension
CPT/HCPCS: 36415; 80048; 80061

== ENCOUNTER → 2017-12-13 09:33 | Outpatient (CLI) | payer MEDICARE, OTHER, SELFPAY ==
[2017-11-17 01:33] VITALS: BMI 49.2
--- NOTE | 2017-12-13 | OV.WND_ITS ---
Progress Note Details Patient Name: Tiffanie Gomez Patient Number: [id number] PatientPatientDate: 12/13/2017 Clinician: Melissa Warren Clinician Cosigner: Kellee Lomeli Physician / [employer] Supervisor: William Zavala SUBJECTIVE Chief Complaint This information was obtained from the patient Venous ulcers to bilateral lower extremities. Allergies Oxycodone (Reaction: severe mental change), Morphine (Reaction: mental change), Hydromorphone (Reaction: mental change), ampicillin (Severity: Severe, Reaction: Itchy rash), vancomycin (Severity: Severe, Reaction: Tachycardia, Chills, Hypertension, Veronika Syndrome), amoxicillin (Severity: Severe, Reaction: Rash, Flushing Nausea Vomiting.), clavulanic acid (Severity: Severe, Reaction: Rash, Flushing nausea vomiting), Codine (Severity: Moderate, Reaction: Hives Vomiting), fluconazole (Severity: Moderate, Reaction: Hives), nafcillin (Severity: Moderate, Reaction: rash), piperacillin (Severity: Moderate, Reaction: rash), fish oil HPI This information was obtained from the patient 12/13/17. Seen by Dr. Zavala. The patient does not report pain or other acute issues regarding the bilateral venous ulcers since her last visit and she states she's taking had Lasix as prescribed and tolerated compression wraps without difficulty. 12/06/17. Seen by Dr. Zavala. The patient does not report pain or other acute issues regarding the bilateral venous ulcers since her last visit however she states she's not been taking her Lasix as prescribed and the Coban compression wraps feel down over the weekend. 11/29/17. Seen by Dr. Zavala. The patient does not report pain or other acute issues regarding the bilateral venous ulcers and her right lower leg culture from the last visit has grown a resistant Proteus specie and MSSA for which she's taking levofloxacin and linezolid. 11/26/17. Seen by Dr. Zavala. The patient returns to clinic following discharge from the hospital where she was treated for bilateral lower leg cellulitis associated with recurrence of her recently healed bilateral lower leg venous ulcers and severe chronic venous hypertension. She does not report pain in the legs, fevers, nor significant drainage from the ulcers however she's not yet picked up her antibiotics that were prescribed upon discharge. 10/18/17. Seen by Dr. Zavala. The patient does not report pain or other acute issues regarding the bilateral venous ulcers and she's tolerating compression therapy that's treating bilateral chronic venous hypertension. 10/11/17. Seen by Dr. Zavala. The patient does not report pain or other acute issues regarding the bilateral venous ulcers and she's tolerating compression therapy that's treating bilateral chronic venous hypertension however she continues to cut the tops of the wraps due to itching and rubbing. 10/04/17. Seen by Elliot Hernandez PA-C. The patient reports stable drainage from her left lower leg venous ulcers. 09/27/17. Seen by Dr. Zavala. The patient reports significant itching associated with the left lower leg compression wrap and has again cut the top portion of the wrap. She's also not been taking her diuretic as prescribed the past few days and staff feel the bilateral lower leg edema has increased considerably since her last visit. Otherwise there's no reported increasing in drainage or pain associated with the bilateral lower leg venous ulcers. bilateral lower leg chronic venous hypertension and associated venous ulcers and staff do not report significant drainage on the dressings. 09/13/17. Seen by Dr. Zavala. The patient has tolerated compression therapy that' s treating severe bilateral lower leg chronic venous hypertension and associated venous ulcers and staff do not report significant drainage on the dressings. 09/06/17. Seen by Dr. Zavala. The patient does not report pain associated with bilateral lower leg venous ulcers since her last visit and she tolerated compression therapy that treating severe bilateral chronic venous hypertension without difficulty. 08/30/17. Seen by Dr. Zavala. The patient does not report pain associated with bilateral lower leg venous ulcers since her last visit and she tolerated compression therapy that treating severe bilateral chronic venous hypertension without difficulty. 08/23/17. Seen by Dr. Zavala. The patient does not report increased drainage or pain associated with bilateral lower leg venous ulcers since her last visit. She reports that she arrived today without dressings over he ulcers however. Her wound culture from the last visit was unremarkable. 08/16/17. Seen by Dr. Zavala. The patient does not report increased drainage or pain associated with bilateral lower leg venous ulcers since her last visit. 08/09/17. Seen by Dr. Zavala. The patient does not report increased drainage or pain associated with bilateral lower leg venous ulcers since her last visit. 08/02/17. Seen by Dr. Zavala. The patient returns for clinic following a recent admission to the hospital for bilateral lower extremity cellulitis. She seen by her primary care provider earlier this week who increased her Lasix from 40 mg 80 mg daily. Despite this she reports significant leg swelling and monitor mental regarding whether she is taking her Lasix as prescribed. She also continues on dicloxacillin for the cellulitis. 07/05/17. Seen by Dr. Zavala. The patient does not report increased drainage or pain associated with bilateral lower leg venous ulcers since her last visit. She states that she is wearing and changing her compression stockings although the nurses note that they were dated at the last visit and do not appear to be changed since then. 06/28/17. Seen by Elliot Hernandez PA-C. The patient reports decreased drainage from her lower extremity ulcers. 06/21/17. Seen by Elliot Hernandez PA-C. The patient reports that part of her leg wraps fell down but the portion near her ankles and feet stayed in place. She does not report increased drainage from her lower extremity venous ulcers. 06/14/17. Seen by Elliot Hernandez PA-C. The patient reports no increase in drainage from her bilateral lower extremity ulcers. 06/07/17. Seen by Elliot Hernandez PA-C. The patient reports increased pain in her left foot and increased drainage from her left foot ulcer. 05/31/17. Seen by Dr. Zavala. The patient was recently discharged from the hospital following an admission for left lower leg and left foot cellulitis. She was treated with IV antibiotics and is now on oral levofloxacin and cefdinir. She was also heavily diuresed and has lost 16 pounds from her last visit. She does not report fevers, feeling unwell, nor adverse side effects of her antibiotics. 05/24/17. Seen by Elliot Hernandez PA-C. The patient reports that she has had a low grade fever 05/17/17. Seen by Elliot Hernandez PA-C. The patient reports decreased drainage from her right lower leg venous ulcers since her last evaluation. 05/10/17. Seen by Elliot Hernandez PA-C. The patient reports stable drainage from her right lower leg venous ulcers. When we noted a new ulcer, more proximal than the existing ones, she stated that this new ulcer has been continuously present for a few weeks without worsening or improving. Associated drainage from this new ulcer has been moderate with minimal, non-radiating pain noted. 05/03/17. Seen by Dr. Zavala. The patient does not report increased drainage associated with the chronic right lower leg venous ulcers since her last visit. 04/26/17. Seen by Dr. Zavala. The patient does not report increased drainage associated with the chronic right lower leg venous ulcers since her last visit and she is applying topical antibiotic to treat the MSSA positive wound culture as recommended. 04/19/17. Seen by Dr. Zavala. The patient does not report increased drainage associated with the chronic right lower leg venous ulcers since her last visit. 04/12/17. Seen by Dr. Zavala. The patient does not report pain or increased drainage associated with chronic right lower leg venous ulcers since her last visit. Recent wound culture grew MSSA plus group B streptococcus and Buttiauxella agrestis which is a gram-negative mi. She states she is taking her diuretic, applying topical gentamicin to the wound base, and wearing compression stockings to manage chronic venous hypertension as recommended. 04/05/17. Seen by Dr. Zavala. The patient does not report pain or increased drainage associated with chronic right lower leg venous ulcers since her last visit. 03/29/17. Seen by Dr. Zavala. The patient does not report pain or increased drainage associated with chronic right lower leg venous ulcers since her last visit. 03/22/17. Seen by Dr. Zavala. The patient does not report pain nor significant drainage associated with chronic right lower leg venous ulcer since her last visit. The staff report some new ulcers however over the right lower leg today. 03/15/17. Seen by Dr. Zavala. The patient does not report pain nor significant drainage associated with chronic right lower leg venous ulcer since her last visit and she's wearing her compression stocking as recommended that's treating right lower leg chronic venous hypertension. Her dressing has been in place since Sunday and the staff report some new periwound erythema and possible new areas of skin breakdown. 02/22/17. Seen by Dr. Zavala. The patient does not report pain nor significant drainage associated with chronic right lower leg venous ulcer since her last visit. 02/15/17. Seen by Dr. Zavala. The patient does not report pain nor significant drainage associated with chronic right lower leg venous ulcer since her last visit. 02/08/17. Seen by Elliot Hernandez PA-C. The patient reports she has been unable to change her dressings on her lower legs and has been unable to bathe. Her dressings have remained in place for >1 week. She is hoping to have home health come and help her with dressing changes. Of note, she does not leave the house, except for doctors appointments, and when she does leave it is with great difficulty. 01/11/17. Seen by Dr. Zavala. The patient does not report pain nor significant drainage associated with chronic right lower leg venous ulcer since her last visit. 01/04/17. Seen by Elliot Hernandez PA-C. The patient reports no increase in drainage from her lower extremity ulcers since her last evaluation. 12/28/16. Seen by Elliot Hernandez PA-C. The patient reports decreased drainage from her lower extremity ulcers. 12/21/16. Seen by Elliot Hernandez PA-C. The patient reports decreased drainage from her lower extremity ulcers since her last evaluation. 12/14/16. Seen by Elliot Hernandez PA-C. The patient reports decreased drainage from her lower extremity ulcers. 12/07/16. Seen by Dr. Zavala. The patient does not report significant drainage or pain associated with the chronic right lateral lower leg venous ulcer. The staff however report a new ulcer on the anterior right lower leg today. 11/30/16. Seen by Elliot Hernandez PA-C. The patient reports decreased drainage from her lower leg venous ulcers. 11/23/16. Seen by Dr. Zavala. The patient does not report significant drainage or pain associated with the chronic right lateral lower leg venous ulcer. The staff do report a new ulcer on the posterior left lower leg today. The patient is now being seen at the end of the day and her daughter is accompanying her due to last week's episode of flea infestation and the need for infectious control to be involved in her care plan. Adult Protective Services were also alerted over the past week however there is no feedback yet regarding their involvement. 11/16/16. Seen by Elliot Hernandez PA-C. The patient reports no increase in drainage from her right lower leg venous ulcers. Nursing reports that approximately 20-30 fleas jumped off of the patient's legs including from under her wound dressing, when it was removed. The patient denies having fleas. 11/09/16. Seen by Elliot Hernandez PA-C. The patient reports continued drainage from her right lower leg venous ulcers despite topical antimicrobial therapy. Her recent culture grees pseudomonas stutzeri with multiple sensitivities. 11/02/16. Seen by Dr. Zavala. The patient does not report increased pain associated with the chronic right lower leg venous ulcers however staff report increased colored drainage on her dressings. She does not report fevers or feeling unwell and is not currently on antibiotics. 10/24/16. Seen by Dr. Zavala. The patient does not report increased drainage or pain associated with the right lower leg venous ulcers since her last visit. 10/21/16. Seen by Elliot Hernandez PA-C. The patient's wound culture grew staph aureus. The patient reports stable drainage from her right lower leg venous ulcer. 10/12/16. Seen by Elliot Hernandez PA-C. The patient returns to us after a hospitalization and SNF stay for cellulitis of her right lower leg. Currently she has home health assisting her with her dressing changes for her right lower leg venous ulcer and they have recommended she present to us for more specialized care. 08/23/16. Seen by Dr. Zavala. The patient was unable to start her IV antibiotics that were prescribed at her visit last week due to financial limitations. She is prescribed cefepime at that time to treat the refractory and multidrug-resistant pseudomonas positive wound culture. She reports increased redness in the leg but no significant pain, fevers, or feeling unwell. 08/10/16. Seen by Dr. Zavala. The staff report significant drainage and malodor associated with the chronic right lower leg non-pressure ulcers and the patient continues on antibiotics for the recent Proteus and Enterococcus positive culture but there's a discrepancy on how many days she has left to take. She does not report pain in the leg, fevers, or feeling unwell and states she's changing the dressing twice daily. 07/26/16. Seen by Dr. Zavala. The patient continues on dual antibiotic therapy for the recent Proteus and Entercoccus positive wound cultures taken from the chronic right lower leg venous ulcers without reporting adverse side effects. She feels the larger posterior right lower leg ulcer continues to produce significant drainage but she does not report pain at the site. She states she's wearing her compression stocking and taking her diuretics as prescribed despite showing increased swelling in the leg today. She does not report fevers or feeling unwell in general. 07/20/16. Seen by Dr. Zavala. The patient does not report pain continues report drainage associated with the right chronic venous ulcers. She continues on dual antibiotic therapy without reporting adverse side effects for the recent Proteus and enterococcus positive wound cultures and does not report adverse side effects. She does not report fevers or feeling unwell in general. 07/13/16. Seen by Dr. Zavala. The patient does not report pain continues report drainage associated with the right chronic venous ulcers. She continues on dual antibiotic therapy for the recent Proteus and enterococcus positive wound cultures and does not report adverse side effects. 07/06/16. Seen by Dr. Zavala. The patient does not report pain or increased drainage associated with the chronic right lower leg venous ulcers nor right 3rd toe trauma wound. The staff however continue to report some blue-green drainage from the posterior ulcer. She states she is applying gentamicin ointment topically to the ulcers and is now off of oral antibiotics. She does not report fevers or feeling unwell. 06/29/16. Seen by Dr. Zavala. The patient continues applying topical gentamicin ointment for the Pseudomonas positive culture taken from the right lower leg venous ulcer. The staff continue to report a blue green drainage from the site however the patient does not report significant pain nor significant drainage or pain associated with the other right lower leg venous ulcers. 06/22/16. Seen by Dr. Zavala. The patient continues on antibiotics for the Pseudomonas positive culture taken from the right lower leg venous ulcer. The staff continue to report a blue green drainage from the site however the patient does not report significant pain nor significant drainage or pain associated with the other right lower leg venous ulcers. 06/15/16. Seen by Dr. Zavala. The patient continues on ciprofloxacin for the right lower leg ulcer infection which cultured Pseudomonas. She does not report adverse side effects and feels the drainage has decreased somewhat. The does not report pain at this nor the other lower leg venous ulcers and states she's wearing her compression stockings as recommended. 06/05/16. Seen by Elliot York PA-C. The patient presents today with 3 new ulcers on her right lower leg which began spontaneously. She has had stable drainage from her previous venous ulcers. 05/18/16. Seen by Dr. Zavala. The patient does not report drainage or pain associated with the bilateral lower leg venous ulcers since her last visit. Of note, the staff report blue/ green drainage on the dressing covering the right lower leg ulcer. 05/11/16. Seen by Dr. Zavala. The patient does not report drainage or pain associated with the bilateral lower leg venous ulcers since her last visit. She should have completed her levofloxacin however states she still has a few tablets left. Of note, she has a habit of not taking her antibiotics as prescribed. 05/04/16 Seen by Elliot Hernandez PA-C. The patient reports no drainage from her left leg venous ulcers since her last dressing change, though she reports a new area of drainage on the right lower anterior leg. 04/27/16. Seen by Dr. Zavala. The patient does not report drainage or pain associated with the bilateral lower leg venous ulcers since her last visit. She's now on levofloxacin and cefdinir for the recent polymicrobial wound culture and does not report adverse side effects, fevers, or feeling unwell in general 04/20/15. Seen by Dr. Zavala. The patient does not report drainage or pain associated with the bilateral lower leg venous ulcers since her last visit however staff report periwound erythema and drainage from most of the ulcers. Of note, she's to be wearing compression stockings to treat bilateral chronic venous hypertension but states she has not for the past day while they're being washed. 03/30/16. Seen by Dr. Zavala. The staff reports a number of new left lower leg venous ulcers. The patient reportedly has been wearing a larger compression stocking due to the recommended size being too tight. The patient states she's been taking her diuretic is prescribed and does not report pain or drainage associated with the bilateral lower leg venous ulcers. She is also on doxycycline now for the staph cultured from her right leg ulcer last visit. 03/23/16. Seen by Dr. Zavala. The staff report a new anterior right lower leg ulcer today however the patient is unaware of this issue. She does not report pain at the site nor at the site of the more lateral/posterior chronic non-pressure ulcer. She states she's wearing her compression stockings however staff note that they appear to be quite dirty. 03/02/16. Seen by Dr. Zavala. The patient does not report pain or significant drainage associated with the chronic right lower leg venous ulcer over the past week. She states that she is compliant in terms of taking her diuretic and wearing compression stockings although she states she did not take her diuretic prior to her appointment today. 02/24/16. Seen by Dr. Zavala. The patient does not report pain or significant drainage associated with the chronic right lower leg venous ulcer over the past week. 02/10/16. Seen by Dr. Zavala. The patient does not report pain or significant drainage associated with the chronic right lower leg venous ulcer and she states she's wearing her compression stocking and taking her diuretic as recommended to address the severe chronic venous hypertension in both leg. She states she's still taking Bactrim, and has been taking it as scheduled, despite the fact this should have run out last week. 02/03/16. Seen by Dr. Zavala. The patient does not report pain or significant drainage associated with the chronic right lower leg venous ulcer and she states she's wearing her compression stocking and taking her diuretic as recommended to address the severe chronic venous hypertension in both legs. She also continues on Bactrim for the recent MRSA positive wound culture and does not report adverse side effects. 01/27/16. Seen by Dr. Zavala. The patient does not report pain or significant drainage associated with the chronic right lower leg venous ulcer and she states she's wearing her compression stocking and taking her diuretic as recommended to address the severe chronic venous hypertension in both legs. She also continues on Bactrim for the recent MRSA and Enterobacter positive wound culture without reporting adverse side effects. 01/20/16. Seen by Dr. Zavala. The patient does not report pain or significant drainage associated with the chronic right lower leg venous ulcer and she states she's wearing her compression stocking and taking her diuretic as recommended to address the severe chronic venous hypertension in both legs. 01/13/16. Seen by Dr. Zavala. The patient does not report pain or significant drainage associated with the chronic right lower leg venous ulcer and she states she's wearing her compression stocking and taking her diuretic as recommended to address the severe chronic venous hypertension in both legs. She does not report pain or recurrence of cellulitis in the left lower leg that was recently treated during a hospital admission. 01/06/16. Seen by Dr. Zavala. [facility] for severe left lower leg cellulitis. She feels this has resolved and she does not report significant drainage associated with remaining chronic right lower leg venous ulcer. She was treated with IV antibiotics for the cellulitis and has been on her diuretic as prescribed to address the significant bilateral chronic venous hypertension. 12/16/15. Seen by Dr. Zavala. The patient presents with her daughter today who's very concerned her mother has been having 'flu-like' symptoms and feeling quite unwell the past couple of days. The patient reports increased redness and swelling in the left lower leg along with a subjective fever. The patient does not report a cough or symptoms unrelated to her left lower leg at this time. 12/09/15. Seen by Dr. Zavala. The patient presents with a few new venous ulcers over the right lower leg. She states she's not wearing her compression stocking because she was advised as such. She's been placing a Xeroform dressing over the ulcers although we recommended Exudry. She also states she did not take her diuretic today but has been taking it as prescribed otherwise. She does not report pain associated with the right lower leg venous ulcers nor fevers or feeling unwell. 12/02/15. Seen by Dr. Zavala. The patient does not report pain or increase drainage associated with her chronic right lower leg venous ulcers over the past week. 11/11/15. Seen by Dr. Zavala. The patient states she's wearing her compression stockings and taking her diuretic as prescribed. She does not report pain or drainage associated with the chronic bilateral lower leg venous ulcers. 11/04/15. Seen by Dr. Zavala. The patient does not report significant drainage or pain associated with the bilateral venous ulcers over the past week. She's taking her diuretic as prescribed and wearing compression stockings as recommended. 10/28/15. Seen by Dr. Zavala. The patient does not report pain or significant drainage associated with the right lower leg venous ulcer in the past week. She states she's wearing her compression stockings as recommended. She's also been taking her antibiotic is prescribed to treat the right lower leg wound infection. 10/21/[address] Zavala. The patient does not report pain or significant drainage associated with the bilateral venous ulcers and states she's wearing her compression stockings and taking her diuretic as directed. Her wound culture from the last visit grew Enterobacter and Proteus and she's not current taking oral antibiotics. 10/14/[address] Zavala. The patient feels her bilateral leg swelling is decreasing and she states she remain compliant with her diuretic therapy and wearing of compression stockings to treat chronic venous hypertension and associated multiple bilateral venous ulcers. She's applying gentamicin ointment to the ulcers to treat the recent Proteus and Enterobacter positive wound culture and she does not report significant pain or drainage associated with any of the ulcers. 10/07/[address] Zavala. The patient reports continued drainage associated with the bilateral lower leg venous ulcers. She also reports minimal pain associated with the right anterior lower leg ulcer. She's not wearing her compression stockings daily as recommended and skips a dose of Lasix intermittently. 09/30/[address] Zavala. The patient reports minimal pain and drainage associated with the chronic right and left lower leg venous ulcers over the past week. 09/23/15 Seen by Elliot Hernandez PA-C. The patient reports stable drainage from her lower leg ulcers. 09/16/[address] Zavala. The patient continues to report swelling and erythema of the right lower leg and some mild discomfort associated with the distal venous ulcer. She's wearing compression stockings as recommended to treat the chronic venous hypertension and she's completed a course of cefdinir within the last week for a polymicrobial wound culture and she does no report adverse side effects. She does not report fever or feeling unwell in general otherwise. 09/09/[address] Zavala. The patient states her right lower leg pain is improving and she continues on cefdinir for the recent Staph and Proteus positive wound culture. She also states she's wearing he compression stockings as recommended. 09/02/[address] Zavala. The patient reports persistent swelling and redness of the right lower leg in the periwound areas and states she continues to take her antibiotics although she should have completed her course after her last visit. Her recent wound culture grew Proteus and MSSA. She does not report significant drainage from the bilateral lower leg venous ulcers and is wearing her compression stockings as recommended. 08/26/[address] Zavala. The patient does not report significant pain or drainage associated with her bilateral lower leg venous ulcers and she's now on cefdinir for a Staph and Proteus positive wound culture taken at the last visit. She feels her leg swelling and redness have improved and she's started taking her diuretic again as recommended. She's not yet wearing her compression stockings however. 08/19/[address] Zavala. The patient returns to clinic reporting new ulcers over the bilateral lower legs She reports increased swelling and redness of the right lower leg starting about two weeks ago but no fever or associated pain. She also admits to not taking her Lasix as scheduled due to urinary incontinence issues and has been unable to apply her compression stockings due to the increased swelling. 05/27/[address] Zavala. The patient does not report significant drainage from her bilateral lower leg venous ulcers and she's wearing compression stockings and taking Lasix as recommended. 05/13/[address] Zavala. The patient's weight has increased by 7 lbs since her last visit and the staff report new venous ulcers over the lower legs. The patient states she missed her lasix dosage the past two days as well but has been wearing her compression stockings daily. 04/22/[address] Zavala. The patient does not report any new leg ulcers nor significant drainage or pain from the previously documented bilateral lower leg venous ulcers. 04/15/[address] Zavala. The staff report a new left posterior left lower leg ulcer however the patient does not know how this may have occurred and states it is not painful. In fact she does not report significant drainage or pain associated with any of her bilateral lower leg venous ulcers. 04/01/[address] Zavala. The patient reports a new right anterior lower leg ulcer that she feels occurred as an abrasion from the Tetragrip compression stocking. She remains compliant with compression therapy to treat her chronic venous hypertension and bilateral lower leg venous ulcers and does not report significant pain or drainage from any. 03/18/[address] Zavala. The patient does not report any new ulcers nor significant drainage or pain associated with the chronic bilateral lower leg venous ulcers. 03/10/[address] Zavala. The patient reports a new ulcer on the right lower leg but does not report trauma to the area. She states she's wearing her compression stockings as recommended. She does not report pain or significant drainage from the bilateral lower leg chronic venous ulcers and states she's compliant with her diuretic therapy which has been treating her leg edema. 03/04/[address] Zavala. The patient reports new ulcers over both lower legs but does not recall when in the past week they occurred nor any inciting events. She continues to compression stockings as recommended for chronic venous hypertension and does not report significant pain or drainage associated with any of the venous ulcers. 02/18/[address] Zavala. The patient reports a new ulcer over the anterior right lower leg the was first noticed yesterday when taking off her compression stocking. It started as a blister and she states it's not painful. She also states she's taking her diuretic as prescribed. 01/28/[address] Zavala. The patient does not report any problems regarding her right lower leg venous ulcer and she states she's wearing her compression stockings and taking her diuretic as prescribed. 01/14/[address] Zavala. The patient does not report significant drainage or pain associated with the bilateral lower leg venous ulcers. She states she's been compliant with her diuretic therapy and compression stockings and her weight is unchanged from last week. 01/07/[address] Zavala. The patient does not report drainage or pain associated with her bilateral lower leg venous ulcers and she was able to wear her compression stockings as recommended. She also reports being compliant with her diuretic therapy. 12/31/[address] Zavala. The patient was recently discharged from the hospital following treatment for left leg cellulitis. She feels the swelling and erythema are much improved and she's completed her course of antibiotics. She has recurrence of venous ulcers over both lower legs and reports moderate drainage but no pain. She's also reports being compliant with her diuretic therapy but has not been wearing compression stockings as we've recommended repeatedly in the past. 09/18/[address] Zavala. The patient has a fever of 101.9 today and complains only of some shortness of breath. She does not report increased swelling, pain, or drainage associated with her bilateral lower leg venous ulcers and she's currently not on systemic antibiotics. 09/10/[address] Zavala. The patient states she started taking her lasix as prescribed and feels her leg swelling is decreasing. She does not report increased drainage from the bilateral lower extremity venous ulcers and is using only topical gentamicin ointment. She states she's wearing her compression stockings during the day as recommended. She's also drinking 1-2 Ensure protein drinks daily to address her protein calorie malnutrition. 09/03/[address] Zavala. The patient does not report fever or chills but admits to being noncompliant with her diuretic therapy. Her weight is up 13 lbs in the past two weeks. She also reports a rash after starting her ampicllin and stopped using it on Sunday. She also states she's drinking one Ensure daily to address her protein calorie malnutrition. 08/27/[address] Zavala. The patient has been wearing her Tetragrips to the level of the ankles as recommended. She's taking ampicillin for an Enterococcus positive wound culture reported on 08/21/14. She does not report pain or increased drainage from the venous ulcers. 08/20/[address] Zavala. The patient states she's not comfortable wearing the compression wraps and they tend to slip down her legs. She does not report pain or drainage from the bilateral lower leg venous ulcer sites and states she's much prefer using her compression stockings instead of wraps. She also continues on doxycycline and does not report adverse side effects. 08/11/14 Seen by Elliot Hernandez PA-C. The patient reports that her wraps slid down her legs again and she finds them uncomfortable and difficult to comply with. She was able to find her old Juxtalite compression stocking for her left leg only and believes her other one is lost. She also reports that she has previously used the same stocking, on both legs by alternating the application of the stockings. 07/30/14 The patient tolerated the compression wraps without difficulty and they were able to stay in place until her appointment today. She continues on doxycycline and states she has no pain associated with the leg ulcers. 07/28/14 The patient tolerated the compression wraps without difficulty and feels her bilateral lower leg ulcers are much improved. She does not report pain or increased drainage and continues on doxycycline. 07/23/14 The patient feels her leg swelling is increasing somewhat and states she wears her compression stockings most days. She does not report increase pain or drainage associated with her bilateral lower leg ulcers and she continues on doxycycline for cellulitis in the lower legs. Of note, her prealbumin was 13.7 in early June and she's was advised to drink and Ensure daily at the time. In regards to her weight it's been fluctuating recently which probably has more to do with water retention than nutrition. 07/16/14 The patient feels the drainage from her leg ulcers has decreased considerably since her last visit and she's remains compliant with her antibiotic therapy along with wearing her compression stockings as recommended. 07/09/14 The patient reports decreased pain and drainage from her venous leg ulcers. She has been compliant with her doxycycline and tetra clothespin machine operator compression. Her diuretics have not been changed. 07/02/14 The patient has two new ulcers on her lower legs today and is unclear as to whether she's been wearing compression stockings at home. Of note, her compression wraps have not stayed in place in the past due to the significant narrowing of her legs below the calf muscles. She also states she's on a diuretic although I do not see one on her recent discharge medication list. She' s had a 10 lb weight gain over the past 2 weeks. 06/26/14 The patient returns to the clinic with new lower leg wounds which she states were first noticed a couple of days ago but she does not recall injury to the sites. She states she' s been wearing her compression stockings as recommended. Of note, her prealbumin on 06/15/14 was 13.7. 06/17/14 The patient feels her leg swelling and ulcers are much improved and does not report increased drainage or pain. 06/10/14 The patient does not report any new issues regarding her leg ulcers however she does have a number of new wounds on the lower legs including a pressure ulcer on the left heal. She's also off of antibiotics now with no reported fever or increase in drainage. The dressings on the left leg were noted to be dried and adherent to the underlying ulcers. 06/03/14 The patient was recently discharged to [facility] following treatment for severe left leg cellulitis an bilateral venous ulcers. She as found to have considerable fecal material over both lower legs and her wound culture grew on streptococcus. She continues on IV antibiotics and feels the leg pain is much improved. ____ Patient admitted to hospital 2 weeks ago for cellulitis in her right leg. Over ten excoriated areas on right leg, and very swollen. 08/15/12 everything went ok with the wraps. 08/19/12 Dressing came off last night. Tubigrip on 08/27/12 Arrives without tubigrip on legs. States has been wearing but not this am. Has scattered superficial ulcers over lower right leg. States been using dry skin cream. Had dressings from last , [address] mid tibia 09/03 Patient arrived to clinic with wrap intact on right leg and medigrip on left leg. States she is having no pain and that legs seem to be doing fine. 03/07/13- Patient is being seen by us today because she had cellulitis in her left leg, was admitted into the hospital on 02/20/13 and discharged on 02/28/13. Is now residing at [facility]. Her leg has cleared up, scattered areas of erythema and some excoriations are present. Edema measurements are similar to patient's last visit. 03/28/13 Pt states she has been wearing compression stockings at home but isn't wearing them today. No new concerns or complaints. 05/02/13 has been applying cream qOday and tetrigrip stockings. now has 4 areas of wounds to right lower leg. has been taking antibiotic as prescribed 05/14/13 Dressing being changed every other day. No problems or concerns. Wearing tetragrip on right leg but was cutting circulation off in left leg so patient was is not wearing it anymore 05/21/13 Pt took dressings off this am but did not replace with a fresh dressing. PT has tetra clothespin machine operator to right leg only.05/28/13 Pt states she still has a rash on her abdomen that bleeds a little. 06/04/13 Dressing being changed daily. No problems or concerns 06/11/13 Pt states dressing changes going ok at home.Pt states drainage from abdominal wound has decreased and she thinks the rash around belly button has cleared. 06/18/13 Pt states she thinks things are going well. Umbillicus dressing not preformed as instructed and two pieces of foam found in umbillicus. Increase in drainage and pt states it was changed yesterday. Increased odor. 06/23/13- No new problems or concernss. Changing abdomen dressing about every other day, states no problems with dressing changes. Past Medical History This information was obtained from the patient Patient has a medical history of: Peripheral neuropathy Necrotizing fasciitis Childhood rheumatic fever Chronic venous hypertension (with ulcer and inflammation; bilateral lower legs; Enterococcus and Diptheroids positive culture 08/21/14) Protein calorie malnutrition - 06/15/2014 Morbid Obesity Lymphedema Complaints and Symptoms This information was obtained from the patient Patient complains of: General Notes: I have reviewed and concur with the Review of Systems and Past Family Social History documents completed by the clinician, I have reviewed and concur with the Wound Assessment document completed by the clinician Cardiovascular (Central/Peripheral): Lower extremity (leg) swelling Integumentary (Hair/Skin/Nails): Open Sore Musculoskeletal: Assistive Devices Prior Wound History: Drainage, Erythema, Pain Patient denies complaints or symptoms related to: Cardiovascular (Central/Peripheral): Lower extremity (leg) resting pain Constitutional Symptoms (General Health): Chills, Fever, Marked Weight Change Ear/Nose/Mouth/Throat: Hearing Loss / Aid Gastrointestinal (GI): Nausea / Vomiting, Stomach/abdominal pain Hematologic/Lymphatic: Bleeding / Clotting Disorders, Bleeding Tendency Neurological: Loss of Protective Sensation Prior Wound History: Bleeding, Malodor Psychiatric: Memory Loss Respiratory: Oxygen Use, Shortness of Breath Additional Information Does patient have a history of Cancer? Yes? Complete all questions.: No OBJECTIVE Constitutional BP elevated; Afebrile; Alert and in no distress. Well developed. Alert. Clean appearing.. Height/Length: 65 in (165.1 cm), Weight: 296.5 lbs (134.77 kgs), BMI: 49.3, Temperature: 97.5 ? F (36.39 ?C), Pulse: 71 bpm, Respiratory Rate: 18 breaths/min, Blood Pressure: 152/84 mmHg, Pulse Oximetry: 95 %. Cardiovascular: 3+ bilateral lower leg edema. Gastrointestinal (GI): Obese. Nondistended.. Integumentary (Hair, Skin) Hyperkeratotic changes noted over the right lower leg. Refer to appropriate clinician wound documentation for this visit; right lower leg ulcer extends to subcut with base partially covered with pink granulation, remainder fibrin and slough; left lower leg ulcer healed. Wound #86 Left, Medial Leg is a chronic Full Thickness Venous Ulcer and has received a status of Not Healed. Subsequent wound encounter measurements are 0.5cm length x 0.4cm width x 0.1cm depth, with an area of 0.2 sq cm and a volume of 0.02 cubic cm. No tunneling has been noted. No sinus tract has been noted. No undermining has been noted. There is a small amount of serous drainage noted which has no odor. The patient reports a wound pain of level 0/10. The wound margin is attached. Wound bed has Yes epithelialization, No eschar, Yes slough, Yes pink, firm granulation. The periwound skin moisture is normal. The periwound skin color is normal. The periwound skin exhibited: Edema. The periwound skin did not exhibit: Brawny Induration, Excoriation, Induration, Callus, Crepitus, Fluctuance, Friable, Rash. The temperature of the periwound skin is WNL. Periwound skin does not exhibit signs or symptoms of infection. Local Pulse is Palpable. Wound #87 Left, Anterior Leg is a chronic Full Thickness Venous Ulcer and has received an outcome of Healed - no new wound(s). Subsequent wound encounter measurements are 0cm length x 0cm width x 0cm depth, with an area of 0 sq cm and a volume of 0 cubic cm. No tunneling has been noted. No sinus tract has been noted. No undermining has been noted. There was no drainage noted. The patient reports a wound pain of level 1/10. The wound margin is attached. Wound bed has Yes epithelialization, No eschar, No slough, No granulation. The periwound skin color is normal. The periwound skin exhibited: Edema, Moist. The periwound skin did not exhibit: Brawny Induration, Excoriation, Induration, Callus, Crepitus, Fluctuance, Friable, Rash, Dry/Scaly, Maceration. The temperature of the periwound skin is WNL. Periwound skin does not exhibit signs or symptoms of infection. Local Pulse is Palpable. Wound #88 Right, Lateral Leg is a chronic Partial Thickness Venous Ulcer and has received a status of Not Healed. Subsequent wound encounter measurements are 0.6cm length x 1cm width x 0.1cm depth, with an area of 0.6 sq cm and a volume of 0.06 cubic cm. No tunneling has been noted. No sinus tract has been noted. No undermining has been noted. There is a moderate amount of serosanguineous drainage noted which has no odor. The patient reports a wound pain of level 0/ 10. The wound margin is epithelial resurfacing. Wound bed has Yes epithelialization, No eschar, Yes slough, Yes bright red, pink, firm granulation. The periwound skin moisture is normal. The periwound skin color is normal. The periwound skin exhibited: Edema. The periwound skin did not exhibit: Brawny Induration, Excoriation, Induration, Callus, Crepitus, Fluctuance, Friable, Rash. The temperature of the periwound skin is WNL. Periwound skin does not exhibit signs or symptoms of infection. Local Pulse is Palpable. Neurological: Cranial nerves grossly intact with symmetric function normal by informal observation.. ASSESSMENT Active Problems ICD-10 (Encounter Diagnosis) I87.313 - Chronic venous hypertension (idiopathic) with ulcer of bilateral lower extremity (Encounter Diagnosis) L97.822 - Non-pressure chronic ulcer of other part of left lower leg with fat layer exposed (Encounter Diagnosis) L97.812 - Non-pressure chronic ulcer of other part of right lower leg with fat layer exposed PROCEDURES Wound #86 Wound #86 (Venous Ulcer) is located on the left, medial leg. A selective debridement with a total area debrided of 0.2 sq cm was performed by William Zavala MD. Epidermis was removed along with devitalized tissue: exudate and slough. The following instrument(s) were used: curette. Pain control was achieved using 4% Lido. A time out was conducted prior to the start of the procedure. No bleeding occurred. The procedure was tolerated well with a pain level of 0 throughout and a pain level of 0 following the procedure. Post Debridement Measurements: 0.5cm length x 0.4cm width x 0.1cm depth; with an area of 0.2 sq cm and a volume of 0.02 cubic cm; Wound #86 (Venous Ulcer) is located on the left, medial leg. A Multilayer Compression procedure was performed by Melissa Warren LPN/THERON. General Notes: UNNA boot and Coban 2 layer wrap to left leg. Wound #88 Wound #88 (Venous Ulcer) is located on the right, lateral leg. A skin/ subcutaneous tissue level surgical debridement with a total area debrided of 0.6 sq cm was performed by William Zavala MD. Subcutaneous was removed along with devitalized tissue: exudate and slough. The following instrument (s) were used: curette. Pain control was achieved using 4% Lido. A time out was conducted prior to the start of the procedure. A moderate amount of bleeding was controlled with pressure. The procedure was tolerated well with a pain level of 0 throughout and a pain level of 0 following the procedure. Post Debridement Measurements: 0.6cm length x 1cm width x 0.2cm depth; with an area of 0.6 sq cm and a volume of 0.12 cubic cm; Wound #88 (Venous Ulcer) is located on the right, lateral leg. A Multilayer Compression procedure was performed by Melissa Warren, GERTRUDIS/THERON. General Notes: UNNA boot and Coban 2 layer wrap to right leg. Additional Information Muscle fascia or bone removed and sent to pathology?: No PLAN Wound Orders: Wound #86 Left, Medial Leg Anesthetic Topical Xylocaine to wound bed. - In clinic. Cleanser Cleanse Wound: - Normal saline and gauze. May Shower. - Must use cast protector or plastic bag when showering. Wound #88 Right, Lateral Leg Anesthetic Topical Xylocaine to wound bed. - In clinic. Cleanser Cleanse Wound: - Normal saline and gauze. May Shower. - Must use cast protector or plastic bag when showering. Dressings Cover and secure with: - Allevyn 4x4 gentle. Additional Orders: Compression/Edema Control Elevation of leg(s) above the level of the heart when sitting. Avoid prolonged standing in one place. Multi Layer Wrap: - UNNA boot to both legs, cast padding to even out shape of legs. Coban 2 compression wrap. Do not get leg(s) with compression wrap wet. If wraps are too tight call the wound care center or remove if you are unable to reach the center. Please remove wraps for numbness, tingling, pain in legs or color changes in toes and call the clinic the same day. If symptoms do not resolve after removing wraps please go to the ER for evaluation. Local pharmacies carry plastic cast protectors that may be used for protection while showering. Follow-Up Appointments Return Appointment: - - One week. Other information: If you develop fever, chills, increased pain, drainage, redness or swelling please call our office. If after hours, respond to the ER. Should you experience any significant changes in your wound(s) or have any questions regarding your home care instructions please contact the wound center @ [phone]. If after hours, contact your primary care physician or go to the hospital emergency room. Scribing Attestation I attest, as the nurse, that I scribed these orders for the physician. I've reviewed the clinician's documentation and agree with the evaluation and plan as written. In addition, the patient's ulcer demonstrates evidence of non-viable devitalized tissue which will continue to benefit from sharp debridement to help promote granulation and expedite healing. Electronic Signature(s) Signed By: Date: William Zavala MD 12/14/2017 08:53:09 Entered By: William Zavala on 12/14/2017 07:23:58
== END ==
PROVIDERS: Family Provider Internal Medicine; PCP Internal Medicine; Visit Provider Internal Medicine
DX: I87.313 Chronic venous hypertension (idiopathic) with ulcer of bilateral lower extremity (principal); L97.812 Non-pressure chronic ulcer of other part of right lower leg with fat layer exposed; L97.821 Non-pressure chronic ulcer of other part of left lower leg limited to breakdown of skin
CPT/HCPCS: 11042; 97597

== ENCOUNTER → 2017-12-20 09:19 | Outpatient (CLI) | payer MEDICARE, OTHER, SELFPAY ==
--- NOTE | 2017-12-20 | OV.WND_ITS ---
Progress Note Details Patient Name: Tiffanie Gomez Patient Number: [id number] PatientPatientDate: 12/20/2017 Clinician: Kerry Kapadia Clinician Cosigner: Kellee Lomeli Physician / Assistant Professor Of Geography: William Zavala SUBJECTIVE Chief Complaint This information was obtained from the patient Venous ulcers to bilateral lower extremities. Allergies Oxycodone (Reaction: severe mental change), Morphine (Reaction: mental change), Hydromorphone (Reaction: mental change), ampicillin (Severity: Severe, Reaction: Itchy rash), vancomycin (Severity: Severe, Reaction: Tachycardia, Chills, Hypertension, Veronika Syndrome), amoxicillin (Severity: Severe, Reaction: Rash, Flushing Nausea Vomiting.), clavulanic acid (Severity: Severe, Reaction: Rash, Flushing nausea vomiting), Codine (Severity: Moderate, Reaction: Hives Vomiting), fluconazole (Severity: Moderate, Reaction: Hives), nafcillin (Severity: Moderate, Reaction: rash), piperacillin (Severity: Moderate, Reaction: rash), fish oil HPI This information was obtained from the patient 12/20/17. Seen by Dr. Zavala. The patient reports increase redness and swelling over the right medial thigh and states she had sweats and a subjective fever a couple of days ago but feel this has no resolved. She does not report drainage associated with the bilateral lower leg venous ulcers and has tolerated the compression wraps that are treating severe chronic venous hypertension without difficulty. 12/13/17. Seen by Dr. Zavala. The patient does not report pain or other acute issues regarding the bilateral venous ulcers since her last visit and she states she's taking had Lasix as prescribed and tolerated compression wraps without difficulty. 12/06/17. Seen by Dr. Zavala. The patient does not report pain or other acute issues regarding the bilateral venous ulcers since her last visit however she states she's not been taking her Lasix as prescribed and the Coban compression wraps feel down over the weekend. 11/29/17. Seen by Dr. Zavala. The patient does not report pain or other acute issues regarding the bilateral venous ulcers and her right lower leg culture from the last visit has grown a resistant Proteus specie and MSSA for which she's taking levofloxacin and linezolid. 11/26/17. Seen by Dr. Zavala. The patient returns to clinic following discharge from the hospital where she was treated for bilateral lower leg cellulitis associated with recurrence of her recently healed bilateral lower leg venous ulcers and severe chronic venous hypertension. She does not report pain in the legs, fevers, nor significant drainage from the ulcers however she's not yet picked up her antibiotics that were prescribed upon discharge. 10/18/17. Seen by Dr. Zavala. The patient does not report pain or other acute issues regarding the bilateral venous ulcers and she's tolerating compression therapy that's treating bilateral chronic venous hypertension. 10/11/17. Seen by Dr. Zavala. The patient does not report pain or other acute issues regarding the bilateral venous ulcers and she's tolerating compression therapy that's treating bilateral chronic venous hypertension however she continues to cut the tops of the wraps due to itching and rubbing. 10/04/17. Seen by Elliot Hernandez PA-C. The patient reports stable drainage from her left lower leg venous ulcers. 09/27/17. Seen by Dr. Zavala. The patient reports significant itching associated with the left lower leg as prescribed the past few days and staff feel the bilateral lower leg edema has increased considerably since her last visit. Otherwise there's no reported increasing in drainage or pain associated with the bilateral lower leg venous ulcers. 09/20/17. Seen by Dr. Zavala. The patient has tolerated compression therapy that's treating severe bilateral lower leg chronic venous hypertension and associated venous ulcers and staff do not report significant drainage on the dressings. 09/13/17. Seen by Dr. Zavala. The patient has tolerated compression therapy that' s treating severe bilateral lower leg chronic venous hypertension and associated venous ulcers and staff do not report significant drainage on the dressings. 09/06/17. Seen by Dr. Zavala. The patient does not report pain associated with bilateral lower leg venous ulcers since her last visit and she tolerated compression therapy that treating severe bilateral chronic venous hypertension without difficulty. 08/30/17. Seen by Dr. Zavala. The patient does not report pain associated with bilateral lower leg venous ulcers since her last visit and she tolerated compression therapy that treating severe bilateral chronic venous hypertension without difficulty. 08/23/17. Seen by Dr. Zavala. The patient does not report increased drainage or pain associated with bilateral lower leg venous ulcers since her last visit. She reports that she arrived today without dressings over he ulcers however. Her wound culture from the last visit was unremarkable. 08/16/17. Seen by Dr. Zavala. The patient does not report increased drainage or pain associated with bilateral lower leg venous ulcers since her last visit. 08/09/17. Seen by Dr. Zavala. The patient does not report increased drainage or pain associated with bilateral lower leg venous ulcers since her last visit. 08/02/17. Seen by Dr. Zavala. The patient returns for clinic following a recent admission to the hospital for bilateral lower extremity cellulitis. She seen by her primary care provider earlier this week who increased her Lasix from 40 mg 80 mg daily. Despite this she reports significant leg swelling and monitor mental regarding whether she is taking her Lasix as prescribed. She also continues on dicloxacillin for the cellulitis. 07/05/17. Seen by Dr. Zavala. The patient does not report increased drainage or pain associated with bilateral lower leg venous ulcers since her last visit. She states that she is wearing and changing her compression stockings although the nurses note that they were dated at the last visit and do not appear to be changed since then. 06/28/17. Seen by Elliot Hernandez PA-C. The patient reports decreased drainage from her lower extremity ulcers. 06/21/17. Seen by Elliot Hernandez PA-C. The patient reports that part of her leg wraps fell down but the portion near her ankles and feet stayed in place. She does not report increased drainage from her lower extremity venous ulcers. 06/14/17. Seen by Elliot Hernandez PA-C. The patient reports no increase in drainage from her bilateral lower extremity ulcers. 06/07/17. Seen by Elliot Hernandez PA-C. The patient reports increased pain in her left foot and increased drainage from her left foot ulcer. 05/31/17. Seen by Dr. Zavala. The patient was recently discharged from the hospital following an admission for left lower leg and left foot cellulitis. She was treated with IV antibiotics and is now on oral levofloxacin and cefdinir. She was also heavily diuresed and has lost 16 pounds from her last visit. She does not report fevers, feeling unwell, nor adverse side effects of her antibiotics. 05/24/17. Seen by Elliot Hernandez PA-C. The patient reports that she has had a low grade fever 05/17/17. Seen by Elliot Hernandez PA-C. The patient reports decreased drainage from her right lower leg venous ulcers since her last evaluation. 05/10/17. Seen by Elliot Hernandez PA-C. The patient reports stable drainage from her right lower leg venous ulcers. When we noted a new ulcer, more proximal than the existing ones, she stated that this new ulcer has been continuously present for a few weeks without worsening or improving. Associated drainage from this new ulcer has been moderate with minimal, non-radiating pain noted. 05/03/17. Seen by Dr. Zavala. The patient does not report increased drainage associated with the chronic right lower leg venous ulcers since her last visit. 04/26/17. Seen by Dr. Zavala. The patient does not report increased drainage associated with the chronic right lower leg venous ulcers since her last visit and she is applying topical antibiotic to treat the MSSA positive wound culture as recommended. 04/19/17. Seen by Dr. Zavala. The patient does not report increased drainage associated with the chronic right lower leg venous ulcers since her last visit. 04/12/17. Seen by Dr. Zavala. The patient does not report pain or increased drainage associated with chronic right lower leg venous ulcers since her last visit. Recent wound culture grew MSSA plus group B streptococcus and Buttiauxella agrestis which is a gram-negative mi. She states she is taking her diuretic, applying topical gentamicin to the wound base, and wearing compression stockings to manage chronic venous hypertension as recommended. 04/05/17. Seen by Dr. Zavala. The patient does not report pain or increased drainage associated with chronic right lower leg venous ulcers since her last visit. 03/29/17. Seen by Dr. Zavala. The patient does not report pain or increased drainage associated with chronic right lower leg venous ulcers since her last visit. 03/22/17. Seen by Dr. Zavala. The patient does not report pain nor significant drainage associated with chronic right lower leg venous ulcer since her last visit. The staff report some new ulcers however over the right lower leg today. 03/15/17. Seen by Dr. Zavala. The patient does not report pain nor significant drainage associated with chronic right lower leg venous ulcer since her last visit and she's wearing her compression stocking as recommended that's treating right lower leg chronic venous hypertension. Her dressing has been in place since Sunday and the staff report some new periwound erythema and possible new areas of skin breakdown. 02/22/17. Seen by Dr. Zavala. The patient does not report pain nor significant drainage associated with chronic right lower leg venous ulcer since her last visit. 02/15/17. Seen by Dr. Zavala. The patient does not report pain nor significant drainage associated with chronic right lower leg venous ulcer since her last visit. 02/08/17. Seen by Elliot Hernandez PA-C. The patient reports she has been unable to change her dressings on her lower legs and has been unable to bathe. Her dressings have remained in place for >1 week. She is hoping to have home health come and help her with dressing changes. Of note, she does not leave the house, except for doctors appointments, and when she does leave it is with great difficulty. 01/11/17. Seen by Dr. Zavala. The patient does not report pain nor significant drainage associated with chronic right lower leg venous ulcer since her last visit. 01/04/17. Seen by Elliot Hernandez PA-C. The patient reports no increase in drainage from her lower extremity ulcers since her last evaluation. 12/28/16. Seen by Elliot Hernandez PA-C. The patient reports decreased drainage from her lower extremity ulcers. 12/21/16. Seen by Elliot Hernandez PA-C. The patient reports decreased drainage from her lower extremity ulcers since her last evaluation. 12/14/16. Seen by Elliot Hernandez PA-C. The patient reports decreased drainage from her lower extremity ulcers. 12/07/16. Seen by Dr. Zavala. The patient does not report significant drainage or pain associated with the chronic right lateral lower leg venous ulcer. The staff however report a new ulcer on the anterior right lower leg today. 11/30/16. Seen by Elliot Hernandez PA-C. The patient reports decreased drainage from her lower leg venous ulcers. 11/23/16. Seen by Dr. Zavala. The patient does not report significant drainage or pain associated with the chronic right lateral lower leg venous ulcer. The staff do report a new ulcer on the posterior left lower leg today. The patient is now being seen at the end of the day and her daughter is accompanying her due to last week's episode of flea infestation and the need for infectious control to be involved in her care plan. Adult Protective Services were also alerted over the past week however there is no feedback yet regarding their involvement. 11/16/16. Seen by Elliot Hernandez PA-C. The patient reports no increase in drainage from her right lower leg venous ulcers. Nursing reports that approximately 20-30 fleas jumped off of the patient's legs including from under her wound dressing, when it was removed. The patient denies having fleas. 11/09/16. Seen by Elliot Hernandez PA-C. The patient reports continued drainage from her right lower leg venous ulcers despite topical antimicrobial therapy. Her recent culture grees pseudomonas stutzeri with multiple sensitivities. 11/02/16. Seen by Dr. Zavala. The patient does not report increased pain associated with the chronic right lower leg venous ulcers however staff report increased colored drainage on her dressings. She does not report fevers or feeling unwell and is not currently on antibiotics. 10/24/16. Seen by Dr. Zavala. The patient does not report increased drainage or pain associated with the right lower leg venous ulcers since her last visit. 10/21/16. Seen by Elliot Hernandez PA-C. The patient's wound culture grew staph aureus. The patient reports stable drainage from her right lower leg venous ulcer. 10/12/16. Seen by Elliot Hernandez PA-C. The patient returns to us after a hospitalization and SNF stay for cellulitis of her right lower leg. Currently she has home health assisting her with her dressing changes for her right lower leg venous ulcer and they have recommended she present to us for more specialized care. 08/23/16. Seen by Dr. Zavala. The patient was unable to start her IV antibiotics that were prescribed at her visit last week due to financial limitations. She is prescribed cefepime at that time to treat the refractory and multidrug-resistant pseudomonas positive wound culture. She reports increased redness in the leg but no significant pain, fevers, or feeling unwell. 08/10/16. Seen by Dr. Zavala. The staff report significant drainage and malodor associated with the chronic right lower leg non-pressure ulcers and the patient continues on antibiotics for the recent Proteus and Enterococcus positive culture but there's a discrepancy on how many days she has left to take. She does not report pain in the leg, fevers, or feeling unwell and states she's changing the dressing twice daily. 07/26/16. Seen by Dr. Zavala. The patient continues on dual antibiotic therapy for the recent Proteus and Entercoccus positive wound cultures taken from the chronic right lower leg venous ulcers without reporting adverse side effects. She feels the larger posterior right lower leg ulcer continues to produce significant drainage but she does not report pain at the site. She states she's wearing her compression stocking and taking her diuretics as prescribed despite showing increased swelling in the leg today. She does not report fevers or feeling unwell in general. 07/20/16. Seen by Dr. Zavala. The patient does not report pain continues report drainage associated with the right chronic venous ulcers. She continues on dual antibiotic therapy without reporting adverse side effects for the recent Proteus and enterococcus positive wound cultures and does not report adverse side effects. She does not report fevers or feeling unwell in general. 07/13/16. Seen by Dr. Zavala. The patient does not report pain continues report drainage associated with the right chronic venous ulcers. She continues on dual antibiotic therapy for the recent Proteus and enterococcus positive wound cultures and does not report adverse side effects. 07/06/16. Seen by Dr. Zavala. The patient does not report pain or increased drainage associated with the chronic right lower leg venous ulcers nor right 3rd toe trauma wound. The staff however continue to report some blue-green drainage from the posterior ulcer. She states she is applying gentamicin ointment topically to the ulcers and is now off of oral antibiotics. She does not report fevers or feeling unwell. 06/29/16. Seen by Dr. Zavala. The patient continues applying topical gentamicin ointment for the Pseudomonas positive culture taken from the right lower leg venous ulcer. The staff continue to report a blue green drainage from the site however the patient does not report significant pain nor significant drainage or pain associated with the other right lower leg venous ulcers. 06/22/16. Seen by Dr. Zavala. The patient continues on antibiotics for the Pseudomonas positive culture taken from the right lower leg venous ulcer. The staff continue to report a blue green drainage from the site however the patient does not report significant pain nor significant drainage or pain associated with the other right lower leg venous ulcers. 06/15/16. Seen by Dr. Zavala. The patient continues on ciprofloxacin for the right lower leg ulcer infection which cultured Pseudomonas. She does not report adverse side effects and feels the drainage has decreased somewhat. The does not report pain at this nor the other lower leg venous ulcers and states she's wearing her compression stockings as recommended. 06/05/16. Seen by Elliot Hernandez PA-C. The patient presents today with 3 new ulcers on her right lower leg which began spontaneously. She has had stable drainage from her previous venous ulcers. 05/18/16. Seen by Dr. Zavala. The patient does not report drainage or pain associated with the bilateral lower leg venous ulcers since her last visit. Of note, the staff report blue/ green drainage on the dressing covering the right lower leg ulcer. 05/11/16. Seen by Dr. Zavala. The patient does not report drainage or pain associated with the bilateral lower leg venous ulcers since her last visit. She should have completed her levofloxacin however states she still has a few tablets left. Of note, she has a habit of not taking her antibiotics as prescribed. 05/04/16 Seen by Elliot Hernandez PA-C. The patient reports no drainage from her left leg venous ulcers since her last dressing change, though she reports a new area of drainage on the right lower anterior leg. 04/27/16. Seen by Dr. Zavala. The patient does not report drainage or pain associated with the bilateral lower leg venous ulcers since her last visit. She's now on levofloxacin and cefdinir for the recent polymicrobial wound culture and does not report adverse side effects, fevers, or feeling unwell in general 04/20/15. Seen by Dr. Zavala. The patient does not report drainage or pain associated with the bilateral lower leg venous ulcers since her last visit however staff report periwound erythema and drainage from most of the ulcers. Of note, she's to be wearing compression stockings to treat bilateral chronic venous hypertension but states she has not for the past day while they're being washed. 03/30/16. Seen by Dr. Zavala. The staff reports a number of new left lower leg venous ulcers. The patient reportedly has been wearing a larger compression stocking due to the recommended size being too tight. The patient states she's been taking her diuretic is prescribed and does not report pain or drainage associated with the bilateral lower leg venous ulcers. She is also on doxycycline now for the staph cultured from her right leg ulcer last visit. 03/23/16. Seen by Dr. Zavala. The staff report a new anterior right lower leg ulcer today however the patient is unaware of this issue. She does not report pain at the site nor at the site of the more lateral/posterior chronic non-pressure ulcer. She states she's wearing her compression stockings however staff note that they appear to be quite dirty. 03/02/16. Seen by Dr. Zavala. The patient does not report pain or significant drainage associated with the chronic right lower leg venous ulcer over the past week. She states that she is compliant in terms of taking her diuretic and wearing compression stockings although she states she did not take her diuretic prior to her appointment today. 02/24/16. Seen by Dr. Zavala. The patient does not report pain or significant drainage associated with the chronic right lower leg venous ulcer over the past week. 02/10/16. Seen by Dr. Zavala. The patient does not report pain or significant drainage associated with the chronic right lower leg venous ulcer and she states she's wearing her compression stocking and taking her diuretic as recommended to address the severe chronic venous hypertension in both leg. She states she's still taking Bactrim, and has been taking it as scheduled, despite the fact this should have run out last week. 02/03/16. Seen by Dr. Zavala. The patient does not report pain or significant drainage associated with the chronic right lower leg venous ulcer and she states she's wearing her compression stocking and taking her diuretic as recommended to address the severe chronic venous hypertension in both legs. She also continues on Bactrim for the recent MRSA positive wound culture and does not report adverse side effects. 01/27/16. Seen by Dr. Zavala. The patient does not report pain or significant drainage associated with the chronic right lower leg venous ulcer and she states she's wearing her compression stocking and taking her diuretic as recommended to address the severe chronic venous hypertension in both legs. She also continues on Bactrim for the recent MRSA and Enterobacter positive wound culture without reporting adverse side effects. 01/20/16. Seen by Dr. Zavala. The patient does not report pain or significant drainage associated with the chronic right lower leg venous ulcer and she states she's wearing her compression stocking and taking her diuretic as recommended to address the severe chronic venous hypertension in both legs. 01/13/16. Seen by Dr. Zavala. The patient does not report pain or significant drainage associated with the chronic right lower leg venous ulcer and she states she's wearing her compression stocking and taking her diuretic as recommended to address the severe chronic venous hypertension in both legs. She does not report pain or recurrence of cellulitis in the left lower leg that was recently treated during a hospital admission. 01/06/16. Seen by Dr. Zavala. The patient was recently discharged from [facility] following a hospital admission for severe left lower leg cellulitis. She feels this has resolved and she does not report significant drainage associated with remaining chronic right lower leg venous ulcer. She was treated with IV antibiotics for the cellulitis and has been on her diuretic as prescribed to address the significant bilateral chronic venous hypertension. 12/16/15. Seen by Dr. Zavala. The patient presents with her daughter today who's very concerned her mother has been having 'flu-like' symptoms and feeling quite unwell the past couple of days. The patient reports increased redness and swelling in the left lower leg along with a subjective fever. The patient does not report a cough or symptoms unrelated to her left lower leg at this time. 12/09/15. Seen by Dr. Zavala. The patient presents with a few new venous ulcers over the right lower leg. She states she's not wearing her compression stocking because she was advised as such. She's been placing a Xeroform dressing over the ulcers although we recommended Exudry. She also states she did not take her diuretic today but has been taking it as prescribed otherwise. She does not report pain associated with the right lower leg venous ulcers nor fevers or feeling unwell. 12/02/15. Seen by Dr. Zavala. The patient does not report pain or increase drainage associated with her chronic right lower leg venous ulcers over the past week. 11/11/15. Seen by Dr. Zavala. The patient states she's wearing her compression stockings and taking her diuretic as prescribed. She does not report pain or drainage associated with the chronic bilateral lower leg venous ulcers. 11/04/15. Seen by Dr. Zavala. The patient does not report significant drainage or pain associated with the bilateral venous ulcers over the past week. She's taking her diuretic as prescribed and wearing compression stockings as recommended. 10/28/15. Seen by Dr. Zavala. The patient does not report pain or significant drainage associated with the right lower leg venous ulcer in the past week. She states she's wearing her compression stockings as recommended. She's also been taking her antibiotic is prescribed to treat the right lower leg wound infection. 10/21/[address] Zavala. The patient does not report pain or significant drainage associated with the bilateral venous ulcers and states she's wearing her compression stockings and taking her diuretic as directed. Her wound culture from the last visit grew Enterobacter and Proteus and she's not current taking oral antibiotics. 10/14/[address] Zavala. The patient feels her bilateral leg swelling is decreasing and she states she remain compliant with her diuretic therapy and wearing of compression stockings to treat chronic venous hypertension and associated multiple bilateral venous ulcers. She's applying gentamicin ointment to the ulcers to treat the recent Proteus and Enterobacter positive wound culture and she does not report significant pain or drainage associated with any of the ulcers. 10/07/[address] Zavala. The patient reports continued drainage associated with the bilateral lower leg venous ulcers. She also reports minimal pain associated with the right anterior lower leg ulcer. She's not wearing her compression stockings daily as recommended and skips a dose of Lasix intermittently. 09/30/[address] Zavala. The patient reports minimal pain and drainage associated with the chronic right and left lower leg venous ulcers over the past week. 09/23/15 Seen by Elliot Hernandez PA-C. The patient reports stable drainage from her lower leg ulcers. 09/16/[address] Zavala. The patient continues to report swelling and erythema of the right lower leg and some mild discomfort associated with the distal venous ulcer. She's wearing compression stockings as recommended to treat the chronic venous hypertension and she's completed a course of cefdinir within the last week for a polymicrobial wound culture and she does no report adverse side effects. She does not report fever or feeling unwell in general otherwise. 09/09/[address] Zavala. The patient states her right lower leg pain is improving and she continues on cefdinir for the recent Staph and Proteus positive wound culture. She also states she's wearing he compression stockings as recommended. 09/02/[address] Zavala. The patient reports persistent swelling and redness of the right lower leg in the periwound areas and states she continues to take her antibiotics although she should have completed her course after her last visit. Her recent wound culture grew Proteus and MSSA. She does not report significant drainage from the bilateral lower leg venous ulcers and is wearing her compression stockings as recommended. 08/26/[address] Zavala. The patient does not report significant pain or drainage associated with her bilateral lower leg venous ulcers and she's now on cefdinir for a Staph and Proteus positive wound culture taken at the last visit. She feels her leg swelling and redness have improved and she's started taking her diuretic again as recommended. She's not yet wearing her compression stockings however. 08/19/[address] Zavala. The patient returns to clinic reporting new ulcers over the bilateral lower legs She reports increased swelling and redness of the right lower leg starting about two weeks ago but no fever or associated pain. She also admits to not taking her Lasix as scheduled due to urinary incontinence issues and has been unable to apply her compression stockings due to the increased swelling. 05/27/[address] Zavala. The patient does not report significant drainage from her bilateral lower leg venous ulcers and she's wearing compression stockings and taking Lasix as recommended. 05/13/[address] Zavala. The patient's weight has increased by 7 lbs since her last visit and the staff report new venous ulcers over the lower legs. The patient states she missed her lasix dosage the past two days as well but has been wearing her compression stockings daily. 04/22/[address] Zavala. The patient does not report any new leg ulcers nor significant drainage or pain from the previously documented bilateral lower leg venous ulcers. 04/15/[address] Zavala. The staff report a new left posterior left lower leg ulcer however the patient does not know how this may have occurred and states it is not painful. In fact she does not report significant drainage or pain associated with any of her bilateral lower leg venous ulcers. 04/01/[address] Zavala. The patient reports a new right anterior lower leg ulcer that she feels occurred as an abrasion from the Tetragrip compression stocking. She remains compliant with compression therapy to treat her chronic venous hypertension and bilateral lower leg venous ulcers and does not report significant pain or drainage from any. 03/18/[address] Zavala. The patient does not report any new ulcers nor significant drainage or pain associated with the chronic bilateral lower leg venous ulcers. 03/10/[address] Zavala. The patient reports a new ulcer on the right lower leg but does not report trauma to the area. She states she's wearing her compression stockings as recommended. She does not report pain or significant drainage from the bilateral lower leg chronic venous ulcers and states she's compliant with her diuretic therapy which has been treating her leg edema. 03/04/[address] Zavala. The patient reports new ulcers over both lower legs but does not recall when in the past week they occurred nor any inciting events. She continues to compression stockings as recommended for chronic venous hypertension and does not report significant pain or drainage associated with any of the venous ulcers. 02/18/[address] Zavala. The patient reports a new ulcer over the anterior right lower leg the was first noticed yesterday when taking off her compression stocking. It started as a blister and she states it's not painful. She also states she's taking her diuretic as prescribed. 01/28/[address] Zavala. The patient does not report any problems regarding her right lower leg venous ulcer and she states she's wearing her compression stockings and taking her diuretic as prescribed. 01/14/[address] Zavala. The patient does not report significant drainage or pain associated with the bilateral lower leg venous ulcers. She states she's been compliant with her diuretic therapy and compression stockings and her weight is unchanged from last week. 01/07/[address] Zavala. The patient does not report drainage or pain associated with her bilateral lower leg venous ulcers and she was able to wear her compression stockings as recommended. She also reports being compliant with her diuretic therapy. 12/31/[address] Zavala. The patient was recently discharged from the hospital following treatment for left leg cellulitis. She feels the swelling and erythema are much improved and she's completed her course of antibiotics. She has recurrence of venous ulcers over both lower legs and reports moderate drainage but no pain. She's also reports being compliant with her diuretic therapy but has not been wearing compression stockings as we've recommended repeatedly in the past. 09/18/[address] Zavala. The patient has a fever of 101.9 today and complains only of some shortness of breath. She does not report increased swelling, pain, or drainage associated with her bilateral lower leg venous ulcers and she's currently not on systemic antibiotics. 09/10/[address] Zavala. The patient states she started taking her lasix as prescribed and feels her leg swelling is decreasing. She does not report increased drainage from the bilateral lower extremity venous ulcers and is using only topical gentamicin ointment. She states she's wearing her compression stockings during the day as recommended. She's also drinking 1-2 Ensure protein drinks daily to address her protein calorie malnutrition. 09/03/[address] Zavala. The patient does not report fever or chills but admits to being noncompliant with her diuretic therapy. Her weight is up 13 lbs in the past two weeks. She also reports a rash after starting her ampicllin and stopped using it on Sunday. She also states she's drinking one Ensure daily to address her protein calorie malnutrition. 08/27/[address] Zavala. The patient has been wearing her Tetragrips to the level of the ankles as recommended. She's taking ampicillin for an Enterococcus positive wound culture reported on 08/21/14. She does not report pain or increased drainage from the venous ulcers. 08/20/[address] Zavala. The patient states she's not comfortable wearing the compression wraps and they tend to slip down her legs. She does not report pain or drainage from the bilateral lower leg venous ulcer sites and states she's much prefer using her compression stockings instead of wraps. She also continues on doxycycline and does not report adverse side effects. 08/11/14 Seen by Elliot Hernandez PA-C. The patient reports that her wraps slid down her legs again and she finds them uncomfortable and difficult to comply with. She was able to find her old Juxtalite compression stocking for her left leg only and believes her other one is lost. She also reports that she has previously used the same stocking, on both legs by alternating the application of the stockings. 07/30/14 The patient tolerated the compression wraps without difficulty and they were able to stay in place until her appointment today. She continues on doxycycline and states she has no pain associated with the leg ulcers. 07/28/14 The patient tolerated the compression wraps without difficulty and feels her bilateral lower leg ulcers are much improved. She does not report pain or increased drainage and continues on doxycycline. 07/23/14 The patient feels her leg swelling is increasing somewhat and states she wears her compression stockings most days. She does not report increase pain or drainage associated with her bilateral lower leg ulcers and she continues on doxycycline for cellulitis in the lower legs. Of note, her prealbumin was 13.7 in early June and she's was advised to drink and Ensure daily at the time. In regards to her weight it's been fluctuating recently which probably has more to do with water retention than nutrition. 07/16/14 The patient feels the drainage from her leg ulcers has decreased considerably since her last visit and she's remains compliant with her antibiotic therapy along with wearing her compression stockings as recommended. 07/09/14 The patient reports decreased pain and drainage from her venous leg ulcers. She has been compliant with her doxycycline and tetra water resource consultant compression. Her diuretics have not been changed. 07/02/14 The patient has two new ulcers on her lower legs today and is unclear as to whether she's been wearing compression stockings at home. Of note, her compression wraps have not stayed in place in the past due to the significant narrowing of her legs below the calf muscles. She also states she's on a diuretic although I do not see one on her recent discharge medication list. She' s had a 10 lb weight gain over the past 2 weeks. 06/26/14 The patient returns to the clinic with new lower leg wounds which she states were first noticed a couple of days ago but she does not recall injury to the sites. She states she' s been wearing her compression stockings as recommended. Of note, her prealbumin on 06/15/14 was 13.7. 06/17/14 The patient feels her leg swelling and ulcers are much improved and does not report increased drainage or pain. 06/10/14 The patient does not report any new issues regarding her leg ulcers however she does have a number of new wounds on the lower legs including a pressure ulcer on the left heal. She's also off of antibiotics now with no reported fever or increase in drainage. The dressings on the left leg were noted to be dried and adherent to the underlying ulcers. 06/03/14 The patient was recently discharged to [facility] from [facility] following treatment for severe left leg cellulitis an bilateral venous ulcers. She as found to have considerable fecal material over both lower legs and her wound culture grew on streptococcus. She continues on IV antibiotics and feels the leg pain is much improved. ____ Patient admitted to hospital 2 weeks ago for cellulitis in her right leg. Over ten excoriated areas on right leg, and very swollen. 08/15/12 everything went ok with the wraps. 08/19/12 Dressing came off last night. Tubigrip on 08/27/12 Arrives without tubigrip on legs. States has been wearing but not this am. Has scattered superficial ulcers over lower right leg. States been using dry skin cream. Had dressings from last , [address] mid tibia 09/03 Patient arrived to clinic with wrap intact on right leg and medigrip on left leg. States she is having no pain and that legs seem to be doing fine. 03/07/13- Patient is being seen by us today because she had cellulitis in her left leg, was admitted into the hospital on 02/20/13 and discharged on 02/28/13. Is now residing at [facility] in [facility]. Her leg has cleared up, scattered areas of erythema and some excoriations are present. Edema measurements are similar to patient's last visit. 03/28/13 Pt states she has been wearing compression stockings at home but isn't wearing them today. No new concerns or complaints. 05/02/13 has been applying cream qOday and tetrigrip stockings. now has 4 areas of wounds to right lower leg. has been taking antibiotic as prescribed 05/14/13 Dressing being changed every other day. No problems or concerns. Wearing tetragrip on right leg but was cutting circulation off in left leg so patient was is not wearing it anymore 05/21/13 Pt took dressings off this am but did not replace with a fresh dressing. PT has tetra water resource consultant to right leg only.05/28/13 Pt states she still has a rash on her abdomen that bleeds a little. 06/04/13 Dressing being changed daily. No problems or concerns 06/11/13 Pt states dressing changes going ok at home.Pt states drainage from abdominal wound has decreased and she thinks the rash around belly button has cleared. 06/18/13 Pt states she thinks things are going well. Umbillicus dressing not preformed as instructed and two pieces of foam found in umbillicus. Increase in drainage and pt states it was changed yesterday. Increased odor. 06/23/13- No new problems or concernss. Changing abdomen dressing about every other day, states no problems with dressing changes. Past Medical History This information was obtained from the patient Patient has a medical history of: Peripheral neuropathy Necrotizing fasciitis Childhood rheumatic fever Chronic venous hypertension (with ulcer and inflammation; bilateral lower legs; Enterococcus and Diptheroids positive culture 08/21/14) Protein calorie malnutrition - 06/15/2014 Morbid Obesity Lymphedema Complaints and Symptoms This information was obtained from the patient Patient complains of: General Notes: I have reviewed and concur with the Review of Systems and Past Family Social History documents completed by the clinician, I have reviewed and concur with the Wound Assessment document completed by the clinician Cardiovascular (Central/Peripheral): Lower extremity (leg) swelling Integumentary (Hair/Skin/Nails): Open Sore Musculoskeletal: Assistive Devices Prior Wound History: Drainage, Erythema, Pain Patient denies complaints or symptoms related to: Cardiovascular (Central/Peripheral): Lower extremity (leg) resting pain Constitutional Symptoms (General Health): Chills, Fever, Marked Weight Change Ear/Nose/Mouth/Throat: Hearing Loss / Aid Gastrointestinal (GI): Nausea / Vomiting, Stomach/abdominal pain Hematologic/Lymphatic: Bleeding / Clotting Disorders, Bleeding Tendency Neurological: Loss of Protective Sensation Prior Wound History: Bleeding, Malodor Psychiatric: Memory Loss Respiratory: Oxygen Use, Shortness of Breath Additional Information Does patient have a history of Cancer? Yes? Complete all questions.: No OBJECTIVE Constitutional Vital signs reviewed and noted. Well developed. Alert. Clean appearing.. Height/ Length: 65 in (165.1 cm), Weight: 289.7 lbs (131.68 kgs), BMI: 48.2, Temperature: 97.8 ?F (36.56 ?C) , Pulse: 87 bpm, Respiratory Rate: 18 breaths/min, Blood Pressure: 135/70 mmHg, Pulse Oximetry: 99 %. Respiratory: No respiratory distress. Even respirations and without use of accessory muscles.. Cardiovascular: 2+ bilateral lower leg edema. Gastrointestinal (GI): Obese. Nondistended.. Integumentary (Hair, Skin) Larger area of erythema and warmth with minimal skin breakdown over mid-medial right thigh. Refer to appropriate clinician wound documentation for this visit; blistering noted in the periwound area/s. Mild confluent, erythematous rash in the posterior left knee affected area without appreciable drainage. Wound #86 Left, Medial Leg is a chronic Full Thickness Venous Ulcer and has received an outcome of Healed - no new wound(s). Subsequent wound encounter measurements are 0cm length x 0cm width with no measurable depth, with an area of 0 sq cm . No tunneling has been noted. No sinus tract has been noted. No undermining has been noted. There was no drainage noted. The patient reports a wound pain of level 0/10. The wound margin is attached. Wound bed has Yes epithelialization, No eschar, No slough, No granulation. The periwound skin moisture is normal. The periwound skin color is normal. The periwound skin exhibited: Edema. The periwound skin did not exhibit: Brawny Induration, Excoriation, Induration, Callus, Crepitus, Fluctuance, Friable, Rash. The temperature of the periwound skin is WNL. Periwound skin does not exhibit signs or symptoms of infection. Local Pulse is Palpable. Wound #88 Right, Lateral Leg is a chronic Partial Thickness Venous Ulcer and has received an outcome of Healed - no new wound(s). Subsequent wound encounter measurements are 0cm length x 0cm width with no measurable depth, with an area of 0 sq cm . No tunneling has been noted. No sinus tract has pain of level 0/10. The wound margin is epithelial resurfacing. Wound bed has Yes epithelialization, No eschar, No slough, No granulation. The periwound skin moisture is normal. The periwound skin color is normal. The periwound skin exhibited: Edema. The periwound skin did not exhibit: Brawny Induration, Excoriation, Induration, Callus, Crepitus, Fluctuance, Friable, Rash. The temperature of the periwound skin is WNL. Periwound skin does not exhibit signs or symptoms of infection. Local Pulse is Palpable. Wound #89 Right, Proximal, Anterior Leg is an acute Partial Thickness Cellulitis and has received a status of Not Healed. Initial wound encounter measurements are 8cm length x 15cm width x 0.1cm depth, with an area of 120 sq cm and a volume of 12 cubic cm. No tunneling has been noted. No sinus tract has been noted. No undermining has been noted. There is a moderate amount of serous drainage noted which has no odor. The patient reports a wound pain of level 0/10. The wound margin is attached. Wound bed has Yes epithelialization, No eschar, Yes slough, Yes pink, firm granulation. The periwound skin moisture is normal. The periwound skin exhibited: Edema, Erythema. The temperature of the periwound skin is Warm. Periwound skin presents with s/s of infection. Confirmation Description and Treatment Plan is: Signs and Symptoms Present, CandS Pending. Local Pulse is Palpable. Wound #90 Right, Posterior Ankle is an acute Full Thickness Venous Ulcer and has received a status of Not Healed. Initial wound encounter measurements are 1.2cm length x 0.5cm width x 0.1cm depth, with an area of 0.6 sq cm and a volume of 0.06 cubic cm. No tunneling has been noted. No sinus tract has been noted. No undermining has been noted. There is a moderate amount of serous drainage noted which has no odor. The patient reports a wound pain of level 0/10. The wound margin is attached. Wound bed has Yes epithelialization, No eschar, Yes slough, Yes pink, firm granulation. The periwound skin moisture is normal. The periwound skin color is normal. The periwound skin exhibited: Edema. The temperature of the periwound skin is WNL. Periwound skin does not exhibit signs or symptoms of infection. Local Pulse is Palpable. Neurological: Cranial nerves grossly intact with symmetric function normal by informal observation.. ASSESSMENT Active Problems ICD-10 (Encounter Diagnosis) I87.313 - Chronic venous hypertension (idiopathic) with ulcer of bilateral lower extremity (Encounter Diagnosis) L97.822 - Non-pressure chronic ulcer of other part of left lower leg with fat layer exposed (Encounter Diagnosis) L97.812 - Non-pressure chronic ulcer of other part of right lower leg with fat layer exposed (Encounter Diagnosis) R21 - Rash and other nonspecific skin eruption (Encounter Diagnosis) L03.115 - Cellulitis of right lower limb PLAN Laboratory: Culture Wound Medications prescribed: doxycycline hyclate - oral 100 mg capsule twice daily for 7 days for cellulitis starting 12/20/2017 nystatin - topical 100,000 unit/gram powder twice daily for 7 days for rash starting 12/20/2017 I've reviewed the clinician's documentation and agree with the evaluation and plan as written. Also, I've started the patient empirically on doxycycline for cellulitis of the right thigh along with nystatin powder for what appears to be a richard infection of the left posterior knee. Electronic Signature(s) Signed By: Date: William Zavala MD 12/21/2017 09:41:06 Entered By: William Zavala on 12/21/2017 09:36:12
== END ==
PROVIDERS: Family Provider Internal Medicine; PCP Internal Medicine; Visit Provider Internal Medicine
DX: I87.311 Chronic venous hypertension (idiopathic) with ulcer of right lower extremity (principal); L97.812 Non-pressure chronic ulcer of other part of right lower leg with fat layer exposed; R21 Rash and other nonspecific skin eruption; L03.115 Cellulitis of right lower limb
CPT/HCPCS: 87070; 87075; 87077; 87147; 87186; 87205; 99214

== ENCOUNTER → 2017-12-27 10:24 | Outpatient (CLI) | payer MEDICARE, OTHER, SELFPAY ==
--- NOTE | 2017-12-27 | OV.WND_ITS ---
Progress Note Details Patient Name: Tiffanie Gomez Patient Number: [id number] PatientPatientDate: 12/27/2017 Clinician: Kerry Kapadia Physician / Buckle Strap Puncher: William Zavala SUBJECTIVE Chief Complaint This information was obtained from the patient Venous ulcers to bilateral lower extremities. Allergies Oxycodone (Reaction: severe mental change), Morphine (Reaction: mental change), Hydromorphone (Reaction: mental change), ampicillin (Severity: Severe, Reaction: Itchy rash), vancomycin (Severity: Severe, Reaction: Tachycardia, Chills, Hypertension, Veronika Syndrome), amoxicillin (Severity: Severe, Reaction: Rash, Flushing Nausea Vomiting.), clavulanic acid (Severity: Severe, Reaction: Rash, Flushing nausea vomiting), Codine (Severity: Moderate, Reaction: Hives Vomiting), fluconazole (Severity: Moderate, Reaction: Hives), nafcillin (Severity: Moderate, Reaction: rash), piperacillin (Severity: Moderate, Reaction: rash), fish oil HPI This information was obtained from the patient 12/27/17. Seen by Dr. Zavala. The patient reports improvement in terms of the right thigh redness despite not being able to start on moxifloxacin until today due to insurance prior authorization approval. Her wound culture grew coag negative Staph, group B Strep, Enterococcus, and Pseudomonas which together significantly limited her antibiotic options. She does not report fevers or feeling unwell however his entire leg is considerably swollen today. 12/20/17. Seen by Dr. Zavala. The patient reports increased redness and swelling over the right medial thigh and states she had sweats and a subjective fever a couple of days ago but feel this has no resolved. She does not report drainage associated with the bilateral lower leg venous ulcers and has tolerated the compression wraps that are treating severe chronic venous hypertension without difficulty. 12/13/17. Seen by Dr. Zavala. The patient does not report pain or other acute issues regarding the bilateral venous ulcers since her last visit and she states she's taking had Lasix as prescribed and tolerated compression wraps without difficulty. 12/06/17. Seen by Dr. Zavala. The patient does not report pain or other acute issues regarding the bilateral venous ulcers since her last visit however she states she's not been taking her Lasix as prescribed and the Coban compression wraps feel down over the weekend. 11/29/17. Seen by Dr. Zavala. The patient does not report pain or other acute issues regarding the bilateral venous ulcers and her right lower leg culture from the last visit has grown a resistant Proteus specie and MSSA for which she's taking levofloxacin and linezolid. 11/26/17. Seen by Dr. Zavala. The patient returns to clinic following discharge from the hospital where she was treated for bilateral lower leg cellulitis associated with recurrence of her recently healed bilateral lower leg venous ulcers and severe chronic venous hypertension. She does not report pain in the legs, fevers, nor significant drainage from the ulcers however she's not yet picked up her antibiotics that were prescribed upon discharge. 10/18/17. Seen by Dr. Zavala. The patient does not report pain or other acute issues regarding the bilateral venous ulcers and she's tolerating compression therapy that's treating bilateral chronic venous hypertension. 10/11/17. Seen by Dr. Zavala. The patient does not report pain or other acute issues regarding the hypertension however she continues to cut the tops of the wraps due to itching and rubbing. 10/04/17. Seen by Elliot Hernandez PA-C. The patient reports stable drainage from her left lower leg venous ulcers. 09/27/17. Seen by Dr. Zavala. The patient reports significant itching associated with the left lower leg compression wrap and has again cut the top portion of the wrap. She's also not been taking her diuretic as prescribed the past few days and staff feel the bilateral lower leg edema has increased considerably since her last visit. Otherwise there's no reported increasing in drainage or pain associated with the bilateral lower leg venous ulcers. 09/20/17. Seen by Dr. Zavala. The patient has tolerated compression therapy that's treating severe bilateral lower leg chronic venous hypertension and associated venous ulcers and staff do not report significant drainage on the dressings. 09/13/17. Seen by Dr. Zavala. The patient has tolerated compression therapy that' s treating severe bilateral lower leg chronic venous hypertension and associated venous ulcers and staff do not report significant drainage on the dressings. 09/06/17. Seen by Dr. Zavala. The patient does not report pain associated with bilateral lower leg venous ulcers since her last visit and she tolerated compression therapy that treating severe bilateral chronic venous hypertension without difficulty. 08/30/17. Seen by Dr. Zavala. The patient does not report pain associated with bilateral lower leg venous ulcers since her last visit and she tolerated compression therapy that treating severe bilateral chronic venous hypertension without difficulty. 08/23/17. Seen by Dr. Zavala. The patient does not report increased drainage or pain associated with bilateral lower leg venous ulcers since her last visit. She reports that she arrived today without dressings over he ulcers however. Her wound culture from the last visit was unremarkable. 08/16/17. Seen by Dr. Zavala. The patient does not report increased drainage or pain associated with bilateral lower leg venous ulcers since her last visit. 08/09/17. Seen by Dr. Zavala. The patient does not report increased drainage or pain associated with bilateral lower leg venous ulcers since her last visit. 08/02/17. Seen by Dr. Zavala. The patient returns for clinic following a recent admission to the hospital for bilateral lower extremity cellulitis. She seen by her primary care provider earlier this week who increased her Lasix from 40 mg 80 mg daily. Despite this she reports significant leg swelling and monitor mental regarding whether she is taking her Lasix as prescribed. She also continues on dicloxacillin for the cellulitis. 07/05/17. Seen by Dr. Zavala. The patient does not report increased drainage or pain associated with bilateral lower leg venous ulcers since her last visit. She states that she is wearing and changing her compression stockings although the nurses note that they were dated at the last visit and do not appear to be changed since then. 06/28/17. Seen by Elliot Hernandez PA-C. The patient reports decreased drainage from her lower extremity ulcers. 06/21/17. Seen by Elliot Hernandez PA-C. The patient reports that part of her leg wraps fell down but the portion near her ankles and feet stayed in place. She does not report increased drainage from her lower extremity venous ulcers. 06/14/17. Seen by Elliot Hernandez PA-C. The patient reports no increase in drainage from her bilateral lower extremity ulcers. 06/07/17. Seen by Elliot Hernandez PA-C. The patient reports increased pain in her left foot and increased drainage from her left foot ulcer. 05/31/17. Seen by Dr. Zavala. The patient was recently discharged from the hospital following an admission for left lower leg and left foot cellulitis. She was treated with IV antibiotics and is now on oral levofloxacin and cefdinir. She was also heavily diuresed and has lost 16 pounds from her last visit. She does not report fevers, feeling unwell, nor adverse side effects of her antibiotics. 05/24/17. Seen by Elliot Hernandez PA-C. The patient reports that she has had a low grade fever 05/17/17. Seen by Elliot Hernandez PA-C. The patient reports decreased drainage from her right lower leg venous ulcers since her last evaluation. 05/10/17. Seen by Elliot Hernandez PA-C. The patient reports stable drainage from her right lower leg venous ulcers. When we noted a new ulcer, more proximal than the existing ones, she stated that this new ulcer has been continuously present for a few weeks without worsening or improving. Associated drainage from this new ulcer has been moderate with minimal, non-radiating pain noted. 05/03/17. Seen by Dr. Zavala. The patient does not report increased drainage associated with the chronic right lower leg venous ulcers since her last visit. 04/26/17. Seen by Dr. Zavala. The patient does not report increased drainage associated with the chronic right lower leg venous ulcers since her last visit and she is applying topical antibiotic to treat the MSSA positive wound culture as recommended. 04/19/17. Seen by Dr. Zavala. The patient does not report increased drainage associated with the chronic right lower leg venous ulcers since her last visit. 04/12/17. Seen by Dr. Zavala. The patient does not report pain or increased drainage associated with chronic right lower leg venous ulcers since her last visit. Recent wound culture grew MSSA plus group B streptococcus and Buttiauxella agrestis which is a gram-negative mi. She states she is taking her diuretic, applying topical gentamicin to the wound base, and wearing compression stockings to manage chronic venous hypertension as recommended. 04/05/17. Seen by Dr. Zavala. The patient does not report pain or increased drainage associated with chronic right lower leg venous ulcers since her last visit. 03/29/17. Seen by Dr. Zavala. The patient does not report pain or increased drainage associated with chronic right lower leg venous ulcers since her last visit. 03/22/17. Seen by Dr. Zavala. The patient does not report pain nor significant drainage associated with chronic right lower leg venous ulcer since her last visit. The staff report some new ulcers however over the right lower leg today. 03/15/17. Seen by Dr. Zavala. The patient does not report pain nor significant drainage associated with chronic right lower leg venous ulcer since her last visit and she's wearing her compression stocking as recommended that's treating right lower leg chronic venous hypertension. Her dressing has been in place since Sunday and the staff report some new periwound erythema and possible new areas of skin breakdown. 02/22/17. Seen by Dr. Zavala. The patient does not report pain nor significant drainage associated with chronic right lower leg venous ulcer since her last visit. 02/15/17. Seen by Dr. Zavala. The patient does not report pain nor significant drainage associated with chronic right lower leg venous ulcer since her last visit. 02/08/17. Seen by Elliot Hernandez PA-C. The patient reports she has been unable to change her dressings on her lower legs and has been unable to bathe. Her dressings have remained in place for >1 week. She is hoping to have home health come and help her with dressing changes. Of note, she does not leave the house, except for doctors appointments, and when she does leave it is with great difficulty. 01/11/17. Seen by Dr. Zavala. The patient does not report pain nor significant drainage associated with chronic right lower leg venous ulcer since her last visit. 01/04/17. Seen by Elliot Hernandez PA-C. The patient reports no increase in drainage from her lower extremity ulcers since her last evaluation. 12/28/16. Seen by Elliot Hernandez PA-C. The patient reports decreased drainage from her lower extremity ulcers. 12/21/16. Seen by Elliot Hernandez PA-C. The patient reports decreased drainage from her lower extremity ulcers since her last evaluation. 12/14/16. Seen by Elliot Hernandez PA-C. The patient reports decreased drainage from her lower extremity ulcers. 12/07/16. Seen by Dr. Zavala. The patient does not report significant drainage or pain associated with the chronic right lateral lower leg venous ulcer. The staff however report a new ulcer on the anterior right lower leg today. 11/30/16. Seen by Elliot Hernandez PA-C. The patient reports decreased drainage from her lower leg venous ulcers. 11/23/16. Seen by Dr. Zavala. The patient does not report significant drainage or pain associated with the chronic right lateral lower leg venous ulcer. The staff do report a new ulcer on the posterior left lower leg today. The patient is now being seen at the end of the day and her daughter is accompanying her due to last week's episode of flea infestation and the need for infectious control to be involved in her care plan. Adult Protective Services were also alerted over the past week however there is no feedback yet regarding their involvement. 11/16/16. Seen by Elliot Hernandez PA-C. The patient reports no increase in drainage from her right lower leg venous ulcers. Nursing reports that approximately 20-30 fleas jumped off of the patient's legs including from under her wound dressing, when it was removed. The patient denies having fleas. 11/09/16. Seen by Elliot Hernandez PA-C. The patient reports continued drainage from her right lower leg venous ulcers despite topical antimicrobial therapy. Her recent culture grees pseudomonas stutzeri with multiple sensitivities. 11/02/16. Seen by Dr. Zavala. The patient does not report increased pain associated with the chronic right lower leg venous ulcers however staff report increased colored drainage on her dressings. She does not report fevers or feeling unwell and is not currently on antibiotics. 10/24/16. Seen by Dr. Zavala. The patient does not report increased drainage or pain associated with the right lower leg venous ulcers since her last visit. 10/21/16. Seen by Elliot Hernandez PA-C. The patient's wound culture grew staph aureus. The patient reports stable drainage from her right lower leg venous ulcer. 10/12/16. Seen by Elliot Hernandez PA-C. The patient returns to us after a hospitalization and SNF stay for cellulitis of her right lower leg. Currently she has home health assisting her with her dressing changes for her right lower leg venous ulcer and they have recommended she present to us for more specialized care. 08/23/16. Seen by Dr. Zavala. The patient was unable to start her IV antibiotics that were prescribed at her visit last week due to financial limitations. She is prescribed cefepime at that time to treat the refractory and multidrug-resistant pseudomonas positive wound culture. She reports increased redness in the leg but no significant pain, fevers, or feeling unwell. 08/10/16. Seen by Dr. Zavala. The staff report significant drainage and malodor associated with the chronic right lower leg non-pressure ulcers and the patient continues on antibiotics for the recent Proteus and Enterococcus positive culture but there's a discrepancy on how many days she has left to take. She does not report pain in the leg, fevers, or feeling unwell and states she's changing the dressing twice daily. 07/26/16. Seen by Dr. Zavala. The patient continues on dual antibiotic therapy for the recent Proteus and Entercoccus positive wound cultures taken from the chronic right lower leg venous ulcers without reporting adverse side effects. She feels the larger posterior right lower leg ulcer continues to produce significant drainage but she does not report pain at the site. She states she's wearing her compression stocking and taking her diuretics as prescribed despite showing increased swelling in the leg today. She does not report fevers or feeling unwell in general. 07/20/16. Seen by Dr. Zavala. The patient does not report pain continues report drainage associated with the right chronic venous ulcers. She continues on dual antibiotic therapy without reporting adverse side effects for the recent Proteus and enterococcus positive wound cultures and does not report adverse side effects. She does not report fevers or feeling unwell in general. 07/13/16. Seen by Dr. Zavala. The patient does not report pain continues report drainage associated with the right chronic venous ulcers. She continues on dual antibiotic therapy for the recent Proteus and enterococcus positive wound cultures and does not report adverse side effects. 07/06/16. Seen by Dr. Zavala. The patient does not report pain or increased drainage associated with the chronic right lower leg venous ulcers nor right 3rd toe trauma wound. The staff however continue to report some blue-green drainage from the posterior ulcer. She states she is applying gentamicin ointment topically to the ulcers and is now off of oral antibiotics. She does not report fevers or feeling unwell. 06/29/16. Seen by Dr. Zavala. The patient continues applying topical gentamicin ointment for the Pseudomonas positive culture taken from the right lower leg venous ulcer. The staff continue to report a blue green drainage from the site however the patient does not report significant pain nor significant drainage or pain associated with the other right lower leg venous ulcers. 06/22/16. Seen by Dr. Zavala. The patient continues on antibiotics for the Pseudomonas positive culture taken from the right lower leg venous ulcer. The staff continue to report a blue green drainage from the site however the patient does not report significant pain nor significant drainage or pain associated with the other right lower leg venous ulcers. 06/15/16. Seen by Dr. Zavala. The patient continues on ciprofloxacin for the right lower leg ulcer infection which cultured Pseudomonas. She does not report adverse side effects and feels the drainage has decreased somewhat. The does not report pain at this nor the other lower leg venous ulcers and states she's wearing her compression stockings as recommended. 06/05/16. Seen by Elliot Hernandez PA-C. The patient presents today with 3 new ulcers on her right lower leg which began spontaneously. She has had stable drainage from her previous venous ulcers. 05/18/16. Seen by Dr. Zavala. The patient does not report drainage or pain associated with the bilateral lower leg venous ulcers since her last visit. Of note, the staff report blue/ green drainage on the dressing covering the right lower leg ulcer. 05/11/16. Seen by Dr. Zavala. The patient does not report drainage or pain associated with the bilateral lower leg venous ulcers since her last visit. She should have completed her levofloxacin however states she still has a few tablets left. Of note, she has a habit of not taking her antibiotics as prescribed. 05/04/16 Seen by Elliot Hernandez PA-C. The patient reports no drainage from her left leg venous ulcers since her last dressing change, though she reports a new area of drainage on the right lower anterior leg. 04/27/16. Seen by Dr. Zavala. The patient does not report drainage or pain associated with the bilateral lower leg venous ulcers since her last visit. She's now on levofloxacin and cefdinir for the recent polymicrobial wound culture and does not report adverse side effects, fevers, or feeling unwell in general 04/20/15. Seen by Dr. Zavala. The patient does not report drainage or pain associated with the bilateral lower leg venous ulcers since her last visit however staff report periwound erythema and drainage from most of the ulcers. Of note, she's to be wearing compression stockings to treat bilateral chronic venous hypertension but states she has not for the past day while they're being washed. 03/30/16. Seen by Dr. Zavala. The staff reports a number of new left lower leg venous ulcers. The patient reportedly has been wearing a larger compression stocking due to the recommended size being too tight. The patient states she's been taking her diuretic is prescribed and does not report pain or drainage associated with the bilateral lower leg venous ulcers. She is also on doxycycline now for the staph cultured from her right leg ulcer last visit. 03/23/16. Seen by Dr. Zavala. The staff report a new anterior right lower leg ulcer today however the patient is unaware of this issue. She does not report pain at the site nor at the site of the more lateral/posterior chronic non-pressure ulcer. She states she's wearing her compression stockings however staff note that they appear to be quite dirty. 03/02/16. Seen by Dr. Zavala. The patient does not report pain or significant drainage associated with the chronic right lower leg venous ulcer over the past week. She states that she is compliant in terms of taking her diuretic and wearing compression stockings although she states she did not take her diuretic prior to her appointment today. 02/24/16. Seen by Dr. Zavala. The patient does not report pain or significant drainage associated with the chronic right lower leg venous ulcer over the past week. 02/10/16. Seen by Dr. Zavala. The patient does not report pain or significant drainage associated with the chronic right lower leg venous ulcer and she states she's wearing her compression stocking and taking her diuretic as recommended to address the severe chronic venous hypertension in both leg. She states she's still taking Bactrim, and has been taking it as scheduled, despite the fact this should have run out last week. 02/03/16. Seen by Dr. Zavala. The patient does not report pain or significant drainage associated with the chronic right lower leg venous ulcer and she states she's wearing her compression stocking and taking her diuretic as recommended to address the severe chronic venous hypertension in both legs. She also continues on Bactrim for the recent MRSA positive wound culture and does not report adverse side effects. 01/27/16. Seen by Dr. Zavala. The patient does not report pain or significant drainage associated with the chronic right lower leg venous ulcer and she states she's wearing her compression stocking and taking her diuretic as recommended to address the severe chronic venous hypertension in both legs. She also continues on Bactrim for the recent MRSA and Enterobacter positive wound culture without reporting adverse side effects. 01/20/16. Seen by Dr. Zavala. The patient does not report pain or significant drainage associated with the chronic right lower leg venous ulcer and she states she's wearing her compression stocking and taking her diuretic as recommended to address the severe chronic venous hypertension in both legs. 01/13/16. Seen by Dr. Zavala. The patient does not report pain or significant drainage associated with the chronic right lower leg venous ulcer and she states she's wearing her compression stocking and taking her diuretic as recommended to address the severe chronic venous hypertension in both legs. She does not report pain or recurrence of cellulitis in the left lower leg that was recently treated during a hospital admission. 01/06/16. Seen by Dr. Zavala. The patient was recently [facility] following a hospital admission for severe left lower leg cellulitis. She feels this has resolved and she does not report significant drainage associated with remaining chronic right lower leg venous ulcer. She was treated with IV antibiotics for the cellulitis and has been on her diuretic as prescribed to address the significant bilateral chronic venous hypertension. 12/16/15. Seen by Dr. Zavala. The patient presents with her daughter today who's very concerned her mother has been having 'flu-like' symptoms and feeling quite unwell the past couple of days. The patient reports increased redness and swelling in the left lower leg along with a subjective fever. The patient does not report a cough or symptoms unrelated to her left lower leg at this time. 12/09/15. Seen by Dr. Zavala. The patient presents with a few new venous ulcers over the right lower leg. She states she's not wearing her compression stocking because she was advised as such. She's been placing a Xeroform dressing over the ulcers although we recommended Exudry. She also states she did not take her diuretic today but has been taking it as prescribed otherwise. She does not report pain associated with the right lower leg venous ulcers nor fevers or feeling unwell. 12/02/15. Seen by Dr. Zavala. The patient does not report pain or increase drainage associated with her chronic right lower leg venous ulcers over the past week. 11/11/15. Seen by Dr. Zavala. The patient states she's wearing her compression stockings and taking her diuretic as prescribed. She does not report pain or drainage associated with the chronic bilateral lower leg venous ulcers. 11/04/15. Seen by Dr. Zavala. The patient does not report significant drainage or pain associated with the bilateral venous ulcers over the past week. She's taking her diuretic as prescribed and wearing compression stockings as recommended. 10/28/15. Seen by Dr. Zaavla. The patient does not report pain or significant drainage associated with the right lower leg venous ulcer in the past week. She states she's wearing her compression stockings as recommended. She's also been taking her antibiotic is prescribed to treat the right lower leg wound infection. 10/21/[address] Zavala. The patient does not report pain or significant drainage associated with the bilateral venous ulcers and states she's wearing her compression stockings and taking her diuretic as directed. Her wound culture from the last visit grew Enterobacter and Proteus and she's not current taking oral antibiotics. 10/14/[address] Zavala. The patient feels her bilateral leg swelling is decreasing and she states she remain compliant with her diuretic therapy and wearing of compression stockings to treat chronic venous hypertension and associated multiple bilateral venous ulcers. She's applying gentamicin ointment to the ulcers to treat the recent Proteus and Enterobacter positive wound culture and she does not report significant pain or drainage associated with any of the ulcers. 10/07/[address] Zavala. The patient reports continued drainage associated with the bilateral lower leg venous ulcers. She also reports minimal pain associated with the right anterior lower leg ulcer. She's not wearing her compression stockings daily as recommended and skips a dose of Lasix intermittently. 09/30/[address] Zavala. The patient reports minimal pain and drainage associated with the chronic right and left lower leg venous ulcers over the past week. 09/23/15 Seen by Elliot Hernandez PA-C. The patient reports stable drainage from her lower leg ulcers. 09/16/[address] Zavala. The patient continues to report swelling and erythema of the right lower leg and some mild discomfort associated with the distal venous ulcer. She's wearing compression stockings as recommended to treat the chronic venous hypertension and she's completed a course of cefdinir within the last week for a polymicrobial wound culture and she does no report adverse side effects. She does not report fever or feeling unwell in general otherwise. 09/09/[address] Zavala. The patient states her right lower leg pain is improving and she continues on cefdinir for the recent Staph and Proteus positive wound culture. She also states she's wearing he compression stockings as recommended. 09/02/[address] Zavala. The patient reports persistent swelling and redness of the right lower leg in the periwound areas and states she continues to take her antibiotics although she should have completed her course after her last visit. Her recent wound culture grew Proteus and MSSA. She does not report significant drainage from the bilateral lower leg venous ulcers and is wearing her compression stockings as recommended. 08/26/[address] Zavala. The patient does not report significant pain or drainage associated with her bilateral lower leg venous ulcers and she's now on cefdinir for a Staph and Proteus positive wound culture taken at the last visit. She feels her leg swelling and redness have improved and she's started taking her diuretic again as recommended. She's not yet wearing her compression stockings however. 08/19/[address] Zavala. The patient returns to clinic reporting new ulcers over the bilateral lower legs She reports increased swelling and redness of the right lower leg starting about two weeks ago but no fever or associated pain. She also admits to not taking her Lasix as scheduled due to urinary incontinence issues and has been unable to apply her compression stockings due to the increased swelling. 05/27/[address] Zavala. The patient does not report significant drainage from her bilateral lower leg venous ulcers and she's wearing compression stockings and taking Lasix as recommended. 05/13/[address] Zavala. The patient's weight has increased by 7 lbs since her last visit and the staff report new venous ulcers over the lower legs. The patient states she missed her lasix dosage the past two days as well but has been wearing her compression stockings daily. 04/22/[address] Zavala. The patient does not report any new leg ulcers nor significant drainage or pain from the previously documented bilateral lower leg venous ulcers. 04/15/[address] Zavala. The staff report a new left posterior left lower leg ulcer however the patient does not know how this may have occurred and states it is not painful. In fact she does not report significant drainage or pain associated with any of her bilateral lower leg venous ulcers. 04/01/[address] Zavala. The patient reports a new right anterior lower leg ulcer that she feels occurred as an abrasion from the Tetragrip compression stocking. She remains compliant with compression therapy to treat her chronic venous hypertension and bilateral lower leg venous ulcers and does not report significant pain or drainage from any. 03/18/[address] Zavala. The patient does not report any new ulcers nor significant drainage or pain associated with the chronic bilateral lower leg venous ulcers. 03/10/[address] Zavala. The patient reports a new ulcer on the right lower leg but does not report trauma to the area. She states she's wearing her compression stockings as recommended. She does not report pain or significant drainage from the bilateral lower leg chronic venous ulcers and states she's compliant with her diuretic therapy which has been treating her leg edema. 03/04/[address] Zavala. The patient reports new ulcers over both lower legs but does not recall when in the past week they occurred nor any inciting events. She continues to compression stockings as recommended for chronic venous hypertension and does not report significant pain or drainage associated with any of the venous ulcers. 02/18/[address] Zavala. The patient reports a new ulcer over the anterior right lower leg the was first noticed yesterday when taking off her compression stocking. It started as a blister and she states it's not painful. She also states she's taking her diuretic as prescribed. 01/28/[address] Zavala. The patient does not report any problems regarding her right lower leg venous ulcer and she states she's wearing her compression stockings and taking her diuretic as prescribed. 01/14/[address] Zavala. The patient does not report significant drainage or pain associated with the bilateral lower leg venous ulcers. She states she's been compliant with her diuretic therapy and compression stockings and her weight is unchanged from last week. 01/07/[address] Zavala. The patient does not report drainage or pain associated with her bilateral lower leg venous ulcers and she was able to wear her compression stockings as recommended. She also reports being compliant with her diuretic therapy. 12/31/[address] Zavala. The patient was recently discharged from the hospital following treatment for left leg cellulitis. She feels the swelling and erythema are much improved and she's completed her course of antibiotics. She has recurrence of venous ulcers over both lower legs and reports moderate drainage but no pain. She's also reports being compliant with her diuretic therapy but has not been wearing compression stockings as we've recommended repeatedly in the past. 09/18/[address] Zavala. The patient has a fever of 101.9 today and complains only of some shortness of breath. She does not report increased swelling, pain, or drainage associated with her bilateral lower leg venous ulcers and she's currently not on systemic antibiotics. 09/10/[address] Zavala. The patient states she started taking her lasix as prescribed and feels her leg swelling is decreasing. She does not report increased drainage from the bilateral lower extremity venous ulcers and is using only topical gentamicin ointment. She states she's wearing her compression stockings during the day as recommended. She's also drinking 1-2 Ensure protein drinks daily to address her protein calorie malnutrition. 09/03/[address] Zavala. The patient does not report fever or chills but admits to being noncompliant with her diuretic therapy. Her weight is up 13 lbs in the past two weeks. She also reports a rash after starting her ampicllin and stopped using it on Sunday. She also states she's drinking one Ensure daily to address her protein calorie malnutrition. 08/27/[address] Zavala. The patient has been wearing her Tetragrips to the level of the ankles as recommended. She's taking ampicillin for an Enterococcus positive wound culture reported on 08/21/14. She does not report pain or increased drainage from the venous ulcers. 08/20/[address] Zavala. The patient states she's not comfortable wearing the compression wraps and they tend to slip down her legs. She does not report pain or drainage from the bilateral lower leg venous ulcer sites and states she's much prefer using her compression stockings instead of wraps. She also continues on doxycycline and does not report adverse side effects. 08/11/14 Seen by Elliot Hernandez PA-C. The patient reports that her wraps slid down her legs again and she finds them uncomfortable and difficult to comply with. She was able to find her old Juxtalite compression stocking for her left leg only and believes her other one is lost. She also reports that she has previously used the same stocking, on both legs by alternating the application of the stockings. 07/30/14 The patient tolerated the compression wraps without difficulty and they were able to stay in place until her appointment today. She continues on doxycycline and states she has no pain associated with the leg ulcers. 07/28/14 The patient tolerated the compression wraps without difficulty and feels her bilateral lower leg ulcers are much improved. She does not report pain or increased drainage and continues on doxycycline. 07/23/14 The patient feels her leg swelling is increasing somewhat and states she wears her compression stockings most days. She does not report increase pain or drainage associated with her bilateral lower leg ulcers and she continues on doxycycline for cellulitis in the lower legs. Of note, her prealbumin was 13.7 in early June and she's was advised to drink and Ensure daily at the time. In regards to her weight it's been fluctuating recently which probably has more to do with water retention than nutrition. 07/16/14 The patient feels the drainage from her leg ulcers has decreased considerably since her last visit and she's remains compliant with her antibiotic therapy along with wearing her compression stockings as recommended. 07/09/14 The patient reports decreased pain and drainage from her venous leg ulcers. She has been compliant with her doxycycline and tetra pill packer compression. Her diuretics have not been changed. 07/02/14 The patient has two new ulcers on her lower legs today and is unclear as to whether she's been wearing compression stockings at home. Of note, her compression wraps have not stayed in place in the past due to the significant narrowing of her legs below the calf muscles. She also states she's on a diuretic although I do not see one on her recent discharge medication list. She' s had a 10 lb weight gain over the past 2 weeks. 06/26/14 The patient returns to the clinic with new lower leg wounds which she states were first noticed a couple of days ago but she does not recall injury to the sites. She states she' s been wearing her compression stockings as recommended. Of note, her prealbumin on 06/15/14 was 13.7. 06/17/14 The patient feels her leg swelling and ulcers are much improved and does not report increased drainage or pain. 06/10/14 The patient does not report any new issues regarding her leg ulcers however she does have a number of new wounds on the lower legs including a pressure ulcer on the left heal. She's also off of antibiotics now with no reported fever or increase in drainage. The dressings on the left leg were noted to be dried and adherent to the underlying ulcers. 06/03/14 The patient was recently discharged to [facility] from [facility] following treatment for severe left leg cellulitis an bilateral venous ulcers. She as found to have considerable fecal material over both lower legs and her wound culture grew on streptococcus. She continues on IV antibiotics and feels the leg pain is much improved. ____ Patient admitted to hospital 2 weeks ago for cellulitis in her right leg. Over ten excoriated areas on right leg, and very swollen. 08/15/12 everything went ok with the wraps. 08/19/12 Dressing came off last night. Tubigrip on 08/27/12 Arrives without tubigrip on legs. States has been wearing but not this am. Has scattered superficial ulcers over lower right leg. States been using dry skin cream. Had dressings from last , [address] mid tibia 09/03 Patient arrived to clinic with wrap intact on right leg and medigrip on left leg. States she is having no pain and that legs seem to be doing fine. 03/07/13- Patient is being seen by us today because she had cellulitis in her left leg, was admitted into the hospital on 02/20/13 and discharged on 02/28/13. Is now residing at [facility] in [facility]. Her leg has cleared up, scattered areas of erythema and some excoriations are present. Edema measurements are similar to patient's last visit. 03/28/13 Pt states she has been wearing compression stockings at home but isn't wearing them today. No new concerns or complaints. 05/02/13 has been applying cream qOday and tetrigrip stockings. now has 4 areas of wounds to right lower leg. has been taking antibiotic as prescribed 05/14/13 Dressing being changed every other day. No problems or concerns. Wearing tetragrip on right leg but was cutting circulation off in left leg so patient was is not wearing it anymore 05/21/13 Pt took dressings off this am but did not replace with a fresh dressing. PT has tetra pill packer to right leg only.05/28/13 Pt states she still has a rash on her abdomen that bleeds a little. 06/04/13 Dressing being changed daily. No problems or concerns 06/11/13 Pt states dressing changes going ok at home.Pt states drainage from abdominal wound has decreased and she thinks the rash around belly button has cleared. 06/18/13 Pt states she thinks things are going well. Umbillicus dressing not preformed as instructed and two pieces of foam found in umbillicus. Increase in drainage and pt states it was changed yesterday. Increased odor. 06/23/13- No new problems or concernss. Changing abdomen dressing about every other day, states no problems with dressing changes. Past Medical History This information was obtained from the patient Patient has a medical history of: Peripheral neuropathy Necrotizing fasciitis Childhood rheumatic fever Chronic venous hypertension (with ulcer and inflammation; bilateral lower legs; Enterococcus and Diptheroids positive culture 08/21/14) Protein calorie malnutrition - 06/15/2014 Morbid Obesity Lymphedema Complaints and Symptoms This information was obtained from the patient Patient complains of: General Notes: I have reviewed and concur with the Review of Systems and Past Family Social History documents completed by the clinician, I have reviewed and concur with the Wound Assessment document completed by the clinician Cardiovascular (Central/Peripheral): Lower extremity (leg) swelling Integumentary (Hair/Skin/Nails): Open Sore Musculoskeletal: Assistive Devices Prior Wound History: Drainage, Erythema, Pain Patient denies complaints or symptoms related to: Cardiovascular (Central/Peripheral): Lower extremity (leg) resting pain Constitutional Symptoms (General Health): Chills, Fever, Marked Weight Change Ear/Nose/Mouth/Throat: Hearing Loss / Aid Gastrointestinal (GI): Nausea / Vomiting, Stomach/abdominal pain Hematologic/Lymphatic: Bleeding / Clotting Disorders, Bleeding Tendency Neurological: Loss of Protective Sensation Prior Wound History: Bleeding, Malodor Psychiatric: Memory Loss Respiratory: Oxygen Use, Shortness of Breath Additional Information Does patient have a history of Cancer? Yes? Complete all questions.: No OBJECTIVE Constitutional BP elevated; Afebrile; Alert and in no distress. Well developed. Alert. Clean appearing.. Height/Length: 65 in (165.1 cm), Weight: 296.1 lbs (134.59 kgs), BMI: 49.3, Temperature: 97.9 ? F (36.61 ?C), Pulse: 69 bpm, Respiratory Rate: 18 breaths/min, Blood Pressure: 152/65 mmHg, Pulse Oximetry: 98 %. Respiratory: No respiratory distress. Even respirations and without use of accessory muscles.. Cardiovascular: 3+ right lower extremity edema. Gastrointestinal (GI): Obese. Nondistended.. Integumentary (Hair, Skin) Mild right thigh periwound erythema with warmth. Refer to appropriate clinician wound documentation for this visit; right lower leg ulcer extends to subcut with base partially covered with pink granulation, remainder fibrin and slough. Wound #89 Right, Proximal, Anterior Leg is an acute Partial Thickness Cellulitis and has received a status of Not Healed. Subsequent wound encounter measurements are 8cm length x 11cm width x 0.1cm depth, with an area of 88 sq cm and a volume of 8.8 cubic cm. No tunneling has been noted. No sinus tract has been noted. No undermining has been noted. There is a moderate amount of serous drainage noted which has no odor. The patient reports a wound pain of level 0/10. The wound margin is attached. Wound bed has Yes epithelialization, No eschar, Yes slough, Yes pink, firm granulation. The periwound skin moisture is normal. The periwound skin exhibited: Edema, Erythema. The temperature of the periwound skin is Warm. Periwound skin presents with s/s of infection. Confirmation Description and Treatment Plan is: Signs and Symptoms Present, CandS Pending, Confirmed Local, Systemic Wound #90 Right, Posterior Ankle is an acute Full Thickness Venous Ulcer and has received a status of Not Healed. Subsequent wound encounter measurements are 1cm length x 1.5cm width x 0.1cm depth, with an area of 1.5 sq cm and a volume of 0.15 cubic cm. No tunneling has been noted. No sinus tract has been noted. No undermining has been noted. There is a moderate amount of serous drainage noted which has no odor. The patient reports a wound pain of level 0/10. The wound margin is attached. Wound bed has Yes epithelialization, No eschar, Yes slough, Yes pink, firm granulation. The periwound skin moisture is normal. The periwound skin color is normal. The periwound skin exhibited: Edema. The temperature of the periwound skin is WNL. Periwound skin does not exhibit signs or symptoms of infection. Local Pulse is Palpable. Neurological: Cranial nerves grossly intact with symmetric function normal by informal observation.. ASSESSMENT Active Problems ICD-10 (Encounter Diagnosis) I87.313 - Chronic venous hypertension (idiopathic) with ulcer of bilateral lower extremity (Encounter Diagnosis) L97.812 - Non-pressure chronic ulcer of other part of right lower leg with fat layer exposed (Encounter Diagnosis) L03.115 - Cellulitis of right lower limb PROCEDURES Wound #90 Wound #90 (Venous Ulcer) is located on the right, posterior ankle. A skin/ subcutaneous tissue level surgical debridement with a total area debrided of 1.5 sq cm was performed by William Zavala MD. Subcutaneous was removed along with devitalized tissue: slough. The following instrument(s) were used curette. Pain control was achieved using 4% Lido. A time out was conducted prior to the start of the procedure. A minimal amount of bleeding was controlled with n/a. The procedure was tolerated well with a pain level of 0 throughout and a pain level of 0 following the procedure. Post Debridement Measurements: 1cm length x 1.5cm width x 0.2cm depth; with an area of 1.5 sq cm and a volume of 0.3 cubic cm; Wound #90 (Venous Ulcer) is located on the right, posterior ankle. A Multilayer Compression procedure was performed by William Zavala MD. General Notes: Coban 2 layer wrap Additional Information Muscle fascia or bone removed and sent to pathology?: No PLAN Wound Orders: Wound #89 Right, Proximal, Anterior Leg Anesthetic Topical Xylocaine to wound bed. - In clinic. Cleanser Cleanse Wound: - Normal saline and gauze. May Shower. - Must use cast protector or plastic bag when showering. Dressings Primary dressing: - ABD pad Cover and secure with: - Tubular netting Change Dressing: - Daily Additional Orders: Compression/Edema Control Elevation of leg(s) above the level of the heart when sitting. Avoid prolonged standing in one place. Multi Layer Wrap: - Coban 2 wrap. Do not get leg(s) with compression wrap wet. If wraps are too tight call the wound care center or remove if you are unable to reach the center. Please remove wraps for numbness, tingling, pain in legs or color changes in toes and call the clinic the same day. If symptoms do not resolve after removing wraps please go to the ER for evaluation. Local pharmacies carry plastic cast protectors that may be used for protection while showering. Follow-Up Appointments Return Appointment: - - One week. Other information: If you develop fever, chills, increased pain, drainage, redness or swelling please call our office. If after hours, respond to the ER. Should you experience any significant changes in your wound(s) or have any questions regarding your home care instructions please contact the wound center @ [phone]. If after hours, contact your primary care physician or go to the hospital emergency room. Scribing Attestation I attest, as the nurse, that I scribed these orders for the physician. General Notes: Please pear picker antibiotic and take as prescribed. I've reviewed the clinician's documentation and agree with the evaluation and plan as written. In addition, the patient's ulcer demonstrates evidence of non-viable devitalized tissue which will continue to benefit from sharp debridement to help promote granulation and expedite healing. Also, the patient's been advised to start her moxifloxacin today as prescribed. Electronic Signature(s) Signed By: Date: William Zavala MD 12/28/2017 06:00:06 Entered By: William Zavala on 12/28/2017 05:51:22
== END ==
PROVIDERS: Family Provider Internal Medicine; PCP Internal Medicine; Visit Provider Internal Medicine
DX: I87.311 Chronic venous hypertension (idiopathic) with ulcer of right lower extremity (principal); L97.312 Non-pressure chronic ulcer of right ankle with fat layer exposed; L03.115 Cellulitis of right lower limb
CPT/HCPCS: 11042

== ENCOUNTER → 2018-01-03 10:02 | Outpatient (CLI) | payer MEDICARE, OTHER, SELFPAY ==
--- NOTE | 2018-01-03 | OV.WND_ITS ---
Progress Note Details Patient Name: Tiffanie Gomez Patient Number: [id number] PatientPatientDate: 01/03/2018 Clinician: Oksana Lyman Clinician Cosigner: Kellee Lomeli Physician / Perishable Freight Inspector: William Zavala SUBJECTIVE Chief Complaint This information was obtained from the patient Venous ulcers to bilateral lower extremities. Allergies Oxycodone (Reaction: severe mental change), Morphine (Reaction: mental change), Hydromorphone (Reaction: mental change), ampicillin (Severity: Severe, Reaction: Itchy rash), vancomycin (Severity: Severe, Reaction: Tachycardia, Chills, Hypertension, Veronika Syndrome), amoxicillin (Severity: Severe, Reaction: Rash, Flushing Nausea Vomiting.), clavulanic acid (Severity: Severe, Reaction: Rash, Flushing nausea vomiting), Codine (Severity: Moderate, Reaction: Hives Vomiting), fluconazole (Severity: Moderate, Reaction: Hives), nafcillin (Severity: Moderate, Reaction: rash), piperacillin (Severity: Moderate, Reaction: rash), fish oil HPI This information was obtained from the patient 01/03/18. Seen by Dr. Zavala. The patient does not report pain or other acute issues regarding the right leg venous ulcers since her last visit and she continues on moxifloxacin for cellulitis of the left thigh as recommended. 12/27/17. Seen by Dr. Zavala. The patient reports improvement in terms of the right thigh redness despite not being able to start on moxifloxacin until today due to insurance prior authorization approval. Her wound culture grew coag negative Staph, group B Strep, Enterococcus, and Pseudomonas which together significantly limited her antibiotic options. She does not report fevers or feeling unwell however his entire leg is considerably swollen today. 12/20/17. Seen by Dr. Zavala. The patient reports increased redness and swelling over the right medial thigh and states she had sweats and a subjective fever a couple of days ago but feel this has no resolved. She does not report drainage associated with the bilateral lower leg venous ulcers and has tolerated the compression wraps that are treating severe chronic venous hypertension without difficulty. 12/13/17. Seen by Dr. Zavala. The patient does not report pain or other acute issues regarding the bilateral venous ulcers since her last visit and she states she's taking had Lasix as prescribed and tolerated compression wraps without difficulty. 12/06/17. Seen by Dr. Zavala. The patient does not report pain or other acute issues regarding the bilateral venous ulcers since her last visit however she states she's not been taking her Lasix as prescribed and the Coban compression wraps feel down over the weekend. 11/29/17. Seen by Dr. Zavala. The patient does not report pain or other acute issues regarding the bilateral venous ulcers and her right lower leg culture from the last visit has grown a resistant Proteus specie and MSSA for which she's taking levofloxacin and linezolid. 11/26/17. Seen by Dr. Zavala. The patient returns to clinic following discharge from the hospital where she was treated for bilateral lower leg cellulitis associated with recurrence of her recently healed bilateral lower leg venous ulcers and severe chronic venous hypertension. She does not report pain in the legs, fevers, nor significant drainage from the ulcers however she's not yet picked up her antibiotics that were prescribed upon discharge. 10/18/17. Seen by Dr. Zavala. The patient does not report pain or other acute issues regarding the bilateral hypertension. 10/11/17. Seen by Dr. Zavala. The patient does not report pain or other acute issues regarding the bilateral venous ulcers and she's tolerating compression therapy that's treating bilateral chronic venous hypertension however she continues to cut the tops of the wraps due to itching and rubbing. 10/04/17. Seen by Elliot Hernandez PA-C. The patient reports stable drainage from her left lower leg venous ulcers. 09/27/17. Seen by Dr. Zavala. The patient reports significant itching associated with the left lower leg compression wrap and has again cut the top portion of the wrap. She's also not been taking her diuretic as prescribed the past few days and staff feel the bilateral lower leg edema has increased considerably since her last visit. Otherwise there's no reported increasing in drainage or pain associated with the bilateral lower leg venous ulcers. 09/20/17. Seen by Dr. Zavala. The patient has tolerated compression therapy that's treating severe bilateral lower leg chronic venous hypertension and associated venous ulcers and staff do not report significant drainage on the dressings. 09/13/17. Seen by Dr. Zavala. The patient has tolerated compression therapy that' s treating severe bilateral lower leg chronic venous hypertension and associated venous ulcers and staff do not report significant drainage on the dressings. 09/06/17. Seen by Dr. Zavala. The patient does not report pain associated with bilateral lower leg venous ulcers since her last visit and she tolerated compression therapy that treating severe bilateral chronic venous hypertension without difficulty. 08/30/17. Seen by Dr. Zavala. The patient does not report pain associated with bilateral lower leg venous ulcers since her last visit and she tolerated compression therapy that treating severe bilateral chronic venous hypertension without difficulty. 08/23/17. Seen by Dr. Zavala. The patient does not report increased drainage or pain associated with bilateral lower leg venous ulcers since her last visit. She reports that she arrived today without dressings over he ulcers however. Her wound culture from the last visit was unremarkable. 08/16/17. Seen by Dr. Zavala. The patient does not report increased drainage or pain associated with bilateral lower leg venous ulcers since her last visit. 08/09/17. Seen by Dr. Zavala. The patient does not report increased drainage or pain associated with bilateral lower leg venous ulcers since her last visit. 08/02/17. Seen by Dr. Zavala. The patient returns for clinic following a recent admission to the hospital for bilateral lower extremity cellulitis. She seen by her primary care provider earlier this week who increased her Lasix from 40 mg 80 mg daily. Despite this she reports significant leg swelling and monitor mental regarding whether she is taking her Lasix as prescribed. She also continues on dicloxacillin for the cellulitis. 07/05/17. Seen by Dr. Zavala. The patient does not report increased drainage or pain associated with bilateral lower leg venous ulcers since her last visit. She states that she is wearing and changing her compression stockings although the nurses note that they were dated at the last visit and do not appear to be changed since then. 06/28/17. Seen by Elliot Hernandez PA-C. The patient reports decreased drainage from her lower extremity ulcers. 06/21/17. Seen by Elliot Hernandez PA-C. The patient reports that part of her leg wraps fell down but the portion near her ankles and feet stayed in place. She does not report increased drainage from her lower extremity venous ulcers. 06/14/17. Seen by Elliot Hernandez PA-C. The patient reports no increase in drainage from her bilateral lower extremity ulcers. 06/07/17. Seen by Elliot Hernandez PA-C. The patient reports increased pain in her left foot and increased drainage from her left foot ulcer. 05/31/17. Seen by Dr. Zavala. The patient was recently discharged from the hospital following an admission for left lower leg and left foot cellulitis. She was treated with IV antibiotics and is now on oral levofloxacin and cefdinir. She was also heavily diuresed and has lost 16 pounds from her last visit. She does not report fevers, feeling unwell, nor adverse side effects of her antibiotics. 05/24/17. Seen by Elliot Hernandez PA-C. The patient reports that she has had a low grade fever 05/17/17. Seen by Elliot Hernandez PA-C. The patient reports decreased drainage from her right lower leg venous ulcers since her last evaluation. 05/10/17. Seen by Elliot Hernandez PA-C. The patient reports stable drainage from her right lower leg venous ulcers. When we noted a new ulcer, more proximal than the existing ones, she stated that this new ulcer has been continuously present for a few weeks without worsening or improving. Associated drainage from this new ulcer has been moderate with minimal, non-radiating pain noted. 05/03/17. Seen by Dr. Zavala. The patient does not report increased drainage associated with the chronic right lower leg venous ulcers since her last visit. 04/26/17. Seen by Dr. Zavala. The patient does not report increased drainage associated with the chronic right lower leg venous ulcers since her last visit and she is applying topical antibiotic to treat the MSSA positive wound culture as recommended. 04/19/17. Seen by Dr. Zavala. The patient does not report increased drainage associated with the chronic right lower leg venous ulcers since her last visit. 04/12/17. Seen by Dr. Zavala. The patient does not report pain or increased drainage associated with chronic right lower leg venous ulcers since her last visit. Recent wound culture grew MSSA plus group B streptococcus and Buttiauxella agrestis which is a gram-negative mi. She states she is taking her diuretic, applying topical gentamicin to the wound base, and wearing compression stockings to manage chronic venous hypertension as recommended. 04/05/17. Seen by Dr. Zavala. The patient does not report pain or increased drainage associated with chronic right lower leg venous ulcers since her last visit. 03/29/17. Seen by Dr. Zavala. The patient does not report pain or increased drainage associated with chronic right lower leg venous ulcers since her last visit. 03/22/17. Seen by Dr. Zavala. The patient does not report pain nor significant drainage associated with chronic right lower leg venous ulcer since her last visit. The staff report some new ulcers however over the right lower leg today. 03/15/17. Seen by Dr. Zavala. The patient does not report pain nor significant drainage associated with chronic right lower leg venous ulcer since her last visit and she's wearing her compression stocking as recommended that's treating right lower leg chronic venous hypertension. Her dressing has been in place since Sunday and the staff report some new periwound erythema and possible new areas of skin breakdown. 02/22/17. Seen by Dr. Zavala. The patient does not report pain nor significant drainage associated with chronic right lower leg venous ulcer since her last visit. 02/15/17. Seen by Dr. Zavala. The patient does not report pain nor significant drainage associated with chronic right lower leg venous ulcer since her last visit. 02/08/17. Seen by Elliot Hernandez PA-C. The patient reports she has been unable to change her dressings on her lower legs and has been unable to bathe. Her dressings have remained in place for >1 week. She is hoping to have home health come and help her with dressing changes. Of note, she does not leave the house, except for doctors appointments, and when she does leave it is with great difficulty. 01/11/17. Seen by Dr. Zavala. The patient does not report pain nor significant drainage associated with chronic right lower leg venous ulcer since her last visit. 01/04/17. Seen by Elliot Hernandez PA-C. The patient reports no increase in drainage from her lower extremity ulcers since her last evaluation. 12/28/16. Seen by Elliot Hernandez PA-C. The patient reports decreased drainage from her lower extremity ulcers. 12/21/16. Seen by Elliot Hernandez PA-C. The patient reports decreased drainage from her lower extremity ulcers since her last evaluation. 8/31/17. Seen by Elliot Hernandez PA-C. The patient reports decreased drainage from her lower extremity ulcers. 12/07/16. Seen by Dr. Zavala. The patient does not report significant drainage or pain associated with the chronic right lateral lower leg venous ulcer. The staff however report a new ulcer on the anterior right lower leg today. 11/30/16. Seen by Elliot Hernandez PA-C. The patient reports decreased drainage from her lower leg venous ulcers. 11/23/16. Seen by Dr. Zavala. The patient does not report significant drainage or pain associated with the chronic right lateral lower leg venous ulcer. The staff do report a new ulcer on the posterior left lower leg today. The patient is now being seen at the end of the day and her daughter is accompanying her due to last week's episode of flea infestation and the need for infectious control to be involved in her care plan. Adult Protective Services were also alerted over the past week however there is no feedback yet regarding their involvement. 11/16/16. Seen by Elliot Hernandez PA-C. The patient reports no increase in drainage from her right lower leg venous ulcers. Nursing reports that approximately 20-30 fleas jumped off of the patient's legs including from under her wound dressing, when it was removed. The patient denies having fleas. 11/09/16. Seen by Elliot Hernandez PA-C. The patient reports continued drainage from her right lower leg venous ulcers despite topical antimicrobial therapy. Her recent culture grees pseudomonas stutzeri with multiple sensitivities. 11/02/16. Seen by Dr. Zavala. The patient does not report increased pain associated with the chronic right lower leg venous ulcers however staff report increased colored drainage on her dressings. She does not report fevers or feeling unwell and is not currently on antibiotics. 10/24/16. Seen by Dr. Zavala. The patient does not report increased drainage or pain associated with the right lower leg venous ulcers since her last visit. 10/21/16. Seen by Elliot Hernandez PA-C. The patient's wound culture grew staph aureus. The patient reports stable drainage from her right lower leg venous ulcer. 10/12/16. Seen by Elliot Hernandez PA-C. The patient returns to us after a hospitalization and SNF stay for cellulitis of her right lower leg. Currently she has home health assisting her with her dressing changes for her right lower leg venous ulcer and they have recommended she present to us for more specialized care. 08/23/16. Seen by Dr. Zavala. The patient was unable to start her IV antibiotics that were prescribed at her visit last week due to financial limitations. She is prescribed cefepime at that time to treat the refractory and multidrug-resistant pseudomonas positive wound culture. She reports increased redness in the leg but no significant pain, fevers, or feeling unwell. 08/10/16. Seen by Dr. Zavala. The staff report significant drainage and malodor associated with the chronic right lower leg non-pressure ulcers and the patient continues on antibiotics for the recent Proteus and Enterococcus positive culture but there's a discrepancy on how many days she has left to take. She does not report pain in the leg, fevers, or feeling unwell and states she's changing the dressing twice daily. 07/26/16. Seen by Dr. Zavala. The patient continues on dual antibiotic therapy for the recent Proteus and Entercoccus positive wound cultures taken from the chronic right lower leg venous ulcers without reporting adverse side effects. She feels the larger posterior right lower leg ulcer continues to produce significant drainage but she does not report pain at the site. She states she's wearing her compression stocking and taking her diuretics as prescribed despite showing increased swelling in the leg today. She does not report fevers or feeling unwell in general. 07/20/16. Seen by Dr. Zavala. The patient does not report pain continues report drainage associated with the right chronic venous ulcers. She continues on dual antibiotic therapy without reporting adverse side effects for the recent Proteus and enterococcus positive wound cultures and does not report adverse side effects. She does not report fevers or feeling unwell in general. 07/13/16. Seen by Dr. Zavala. The patient does not report pain continues report drainage associated with the right chronic venous ulcers. She continues on dual antibiotic therapy for the recent Proteus and enterococcus positive wound cultures and does not report adverse side effects. 07/06/16. Seen by Dr. Zavala. The patient does not report pain or increased drainage associated with the chronic right lower leg venous ulcers nor right 3rd toe trauma wound. The staff however continue to report some blue-green drainage from the posterior ulcer. She states she is applying gentamicin ointment topically to the ulcers and is now off of oral antibiotics. She does not report fevers or feeling unwell. 06/29/16. Seen by Dr. Zavala. The patient continues applying topical gentamicin ointment for the Pseudomonas positive culture taken from the right lower leg venous ulcer. The staff continue to report a blue green drainage from the site however the patient does not report significant pain nor significant drainage or pain associated with the other right lower leg venous ulcers. 06/22/16. Seen by Dr. Zavala. The patient continues on antibiotics for the Pseudomonas positive culture taken from the right lower leg venous ulcer. The staff continue to report a blue green drainage from the site however the patient does not report significant pain nor significant drainage or pain associated with the other right lower leg venous ulcers. 06/15/16. Seen by Dr. Zavala. The patient continues on ciprofloxacin for the right lower leg ulcer infection which cultured Pseudomonas. She does not report adverse side effects and feels the drainage has decreased somewhat. The does not report pain at this nor the other lower leg venous ulcers and states she's wearing her compression stockings as recommended. 06/05/16. Seen by Elliot Hernandez PA-C. The patient presents today with 3 new ulcers on her right lower leg which began spontaneously. She has had stable drainage from her previous venous ulcers. 05/18/16. Seen by Dr. Zavala. The patient does not report drainage or pain associated with the bilateral lower leg venous ulcers since her last visit. Of note, the staff report blue/ green drainage on the dressing covering the right lower leg ulcer. 05/11/16. Seen by Dr. Zavala. The patient does not report drainage or pain associated with the bilateral lower leg venous ulcers since her last visit. She should have completed her levofloxacin however states she still has a few tablets left. Of note, she has a habit of not taking her antibiotics as prescribed. 05/04/16 Seen by Elliot Hernandez PA-C. The patient reports no drainage from her left leg venous ulcers since her last dressing change, though she reports a new area of drainage on the right lower anterior leg. 04/27/16. Seen by Dr. Zavala. The patient does not report drainage or pain associated with the bilateral lower leg venous ulcers since her last visit. She's now on levofloxacin and cefdinir for the recent polymicrobial wound culture and does not report adverse side effects, fevers, or feeling unwell in general 04/20/15. Seen by Dr. Zavala. The patient does not report drainage or pain associated with the bilateral lower leg venous ulcers since her last visit however staff report periwound erythema and drainage from most of the ulcers. Of note, she's to be wearing compression stockings to treat bilateral chronic venous hypertension but states she has not for the past day while they're being washed. 03/30/16. Seen by Dr. Zavala. The staff reports a number of new left lower leg venous ulcers. The patient reportedly has been wearing a larger compression stocking due to the recommended size being too tight. The patient states she's been taking her diuretic is prescribed and does not report pain or drainage associated with the bilateral lower leg venous ulcers. She is also on doxycycline now for the staph cultured from her right leg ulcer last visit. 03/23/16. Seen by Dr. Zavala. The staff report a new anterior right lower leg ulcer today however the patient is unaware of this issue. She does not report pain at the site nor at the site of the more lateral/posterior chronic non-pressure ulcer. She states she's wearing her compression stockings however staff note that they appear to be quite dirty. 03/02/16. Seen by Dr. Zavala. The patient does not report pain or significant drainage associated with the chronic right lower leg venous ulcer over the past week. She states that she is compliant in terms of taking her diuretic and wearing compression stockings although she states she did not take her diuretic prior to her appointment today. 02/24/16. Seen by Dr. Zavala. The patient does not report pain or significant drainage associated with the chronic right lower leg venous ulcer over the past week. 02/10/16. Seen by Dr. Zavala. The patient does not report pain or significant drainage associated with the chronic right lower leg venous ulcer and she states she's wearing her compression stocking and taking her diuretic as recommended to address the severe chronic venous hypertension in both leg. She states she's still taking Bactrim, and has been taking it as scheduled, despite the fact this should have run out last week. 02/03/16. Seen by Dr. Zavala. The patient does not report pain or significant drainage associated with the chronic right lower leg venous ulcer and she states she's wearing her compression stocking and taking her diuretic as recommended to address the severe chronic venous hypertension in both legs. She also continues on Bactrim for the recent MRSA positive wound culture and does not report adverse side effects. 01/27/16. Seen by Dr. Zavala. The patient does not report pain or significant drainage associated with the chronic right lower leg venous ulcer and she states she's wearing her compression stocking and taking her diuretic as recommended to address the severe chronic venous hypertension in both legs. She also continues on Bactrim for the recent MRSA and Enterobacter positive wound culture without reporting adverse side effects. 01/20/16. Seen by Dr. Zavala. The patient does not report pain or significant drainage associated with the chronic right lower leg venous ulcer and she states she's wearing her compression stocking and taking her diuretic as recommended to address the severe chronic venous hypertension in both legs. 01/13/16. Seen by Dr. Zavala. The patient does not report pain or significant drainage associated with the chronic right lower leg venous ulcer and she states she's wearing her compression stocking and taking her diuretic as recommended to address the severe chronic venous hypertension in both legs. She does not report pain or recurrence of cellulitis in the left lower leg that was recently treated during a hospital admission. 01/06/16. Seen by Dr. Zavala. The patient was recently discharged from nursing home following a hospital admission for severe left lower leg cellulitis. She feels this has resolved and she does not report significant drainage associated with remaining chronic right lower leg venous ulcer. She was treated with IV antibiotics for the cellulitis and has been on her diuretic as prescribed to address the significant bilateral chronic venous hypertension. 12/16/15. Seen by Dr. Zavala. The patient presents with her daughter today who's very concerned her mother has been having 'flu-like' symptoms and feeling quite unwell the past couple of days. The patient reports increased redness and swelling in the left lower leg along with a subjective fever. The patient does not report a cough or symptoms unrelated to her left lower leg at this time. 12/09/15. Seen by Dr. Zavala. The patient presents with a few new venous ulcers over the right lower leg. She states she's not wearing her compression stocking because she was advised as such. She's been placing a Xeroform dressing over the ulcers although we recommended Exudry. She also states she did not take her diuretic today but has been taking it as prescribed otherwise. She does not report pain associated with the right lower leg venous ulcers nor fevers or feeling unwell. 12/02/15. Seen by Dr. Zavala. The patient does not report pain or increase drainage associated with her chronic right lower leg venous ulcers over the past week. 11/11/15. Seen by Dr. Zavala. The patient states she's wearing her compression stockings and taking her diuretic as prescribed. She does not report pain or drainage associated with the chronic bilateral lower leg venous ulcers. 11/04/15. Seen by Dr. Zavala. The patient does not report significant drainage or pain associated with the bilateral venous ulcers over the past week. She's taking her diuretic as prescribed and wearing compression stockings as recommended. 10/28/15. Seen by Dr. Zavala. The patient does not report pain or significant drainage associated with the right lower leg venous ulcer in the past week. She states she's wearing her compression stockings as recommended. She's also been taking her antibiotic is prescribed to treat the right lower leg wound infection. 10/21/[address] Zavala. The patient does not report pain or significant drainage associated with the bilateral venous ulcers and states she's wearing her compression stockings and taking her diuretic as directed. Her wound culture from the last visit grew Enterobacter and Proteus and she's not current taking oral antibiotics. 10/14/[address] Zavala. The patient feels her bilateral leg swelling is decreasing and she states she remain compliant with her diuretic therapy and wearing of compression stockings to treat chronic venous hypertension and associated multiple bilateral venous ulcers. She's applying gentamicin ointment to the ulcers to treat the recent Proteus and Enterobacter positive wound culture and she does not report significant pain or drainage associated with any of the ulcers. 10/07/[address] Zavala. The patient reports continued drainage associated with the bilateral lower leg venous ulcers. She also reports minimal pain associated with the right anterior lower leg ulcer. She's not wearing her compression stockings daily as recommended and skips a dose of Lasix intermittently. 09/30/[address] Zavala. The patient reports minimal pain and drainage associated with the chronic right and left lower leg venous ulcers over the past week. 09/23/15 Seen by Elliot Hernandez PA-C. The patient reports stable drainage from her lower leg ulcers. 09/16/[address] Zavala. The patient continues to report swelling and erythema of the right lower leg and some mild discomfort associated with the distal venous ulcer. She's wearing compression stockings as recommended to treat the chronic venous hypertension and she's completed a course of cefdinir within the last week for a polymicrobial wound culture and she does no report adverse side effects. She does not report fever or feeling unwell in general otherwise. 09/09/[address] Zavala. The patient states her right lower leg pain is improving and she continues on cefdinir for the recent Staph and Proteus positive wound culture. She also states she's wearing he compression stockings as recommended. 09/02/[address] Zavala. The patient reports persistent swelling and redness of the right lower leg in the periwound areas and states she continues to take her antibiotics although she should have completed her course after her last visit. Her recent wound culture grew Proteus and MSSA. She does not report significant drainage from the bilateral lower leg venous ulcers and is wearing her compression stockings as recommended. 08/26/[address] Zavala. The patient does not report significant pain or drainage associated with her bilateral lower leg venous ulcers and she's now on cefdinir for a Staph and Proteus positive wound culture taken at the last visit. She feels her leg swelling and redness have improved and she's started taking her diuretic again as recommended. She's not yet wearing her compression stockings however. 08/19/[address] Zavala. The patient returns to clinic reporting new ulcers over the bilateral lower legs She reports increased swelling and redness of the right lower leg starting about two weeks ago but no fever or associated pain. She also admits to not taking her Lasix as scheduled due to urinary incontinence issues and has been unable to apply her compression stockings due to the increased swelling. 05/27/[address] Zavala. The patient does not report significant drainage from her bilateral lower leg venous ulcers and she's wearing compression stockings and taking Lasix as recommended. 05/13/[address] Zavala. The patient's weight has increased by 7 lbs since her last visit and the staff report new venous ulcers over the lower legs. The patient states she missed her lasix dosage the past two days as well but has been wearing her compression stockings daily. 04/22/[address] Zavala. The patient does not report any new leg ulcers nor significant drainage or pain from the previously documented bilateral lower leg venous ulcers. 04/15/[address] Zavala. The staff report a new left posterior left lower leg ulcer however the patient does not know how this may have occurred and states it is not painful. In fact she does not report significant drainage or pain associated with any of her bilateral lower leg venous ulcers. 04/01/[address] Zavala. The patient reports a new right anterior lower leg ulcer that she feels occurred as an abrasion from the Tetragrip compression stocking. She remains compliant with compression therapy to treat her chronic venous hypertension and bilateral lower leg venous ulcers and does not report significant pain or drainage from any. 03/18/[address] Zavala. The patient does not report any new ulcers nor significant drainage or pain associated with the chronic bilateral lower leg venous ulcers. 03/10/[address] Zavala. The patient reports a new ulcer on the right lower leg but does not report trauma to the area. She states she's wearing her compression stockings as recommended. She does not report pain or significant drainage from the bilateral lower leg chronic venous ulcers and states she's compliant with her diuretic therapy which has been treating her leg edema. 03/04/[address] Zavala. The patient reports new ulcers over both lower legs but does not recall when in the past week they occurred nor any inciting events. She continues to compression stockings as recommended for chronic venous hypertension and does not report significant pain or drainage associated with any of the venous ulcers. 02/18/[address] Zavala. The patient reports a new ulcer over the anterior right lower leg the was first noticed yesterday when taking off her compression stocking. It started as a blister and she states it's not painful. She also states she's taking her diuretic as prescribed. 01/28/[address] Zavala. The patient does not report any problems regarding her right lower leg venous ulcer and she states she's wearing her compression stockings and taking her diuretic as prescribed. 01/14/[address] Zavala. The patient does not report significant drainage or pain associated with the bilateral lower leg venous ulcers. She states she's been compliant with her diuretic therapy and compression stockings and her weight is unchanged from last week. 01/07/[address] Zavala. The patient does not report drainage or pain associated with her bilateral lower leg venous ulcers and she was able to wear her compression stockings as recommended. She also reports being compliant with her diuretic therapy. 12/31/[address] Zavala. The patient was recently discharged from the hospital following treatment for left leg cellulitis. She feels the swelling and erythema are much improved and she's completed her course of antibiotics. She has recurrence of venous ulcers over both lower legs and reports moderate drainage but no pain. She's also reports being compliant with her diuretic therapy but has not been wearing compression stockings as we've recommended repeatedly in the past. 09/18/[address] Zavala. The patient has a fever of 101.9 today and complains only of some shortness of breath. She does not report increased swelling, pain, or drainage associated with her bilateral lower leg venous ulcers and she's currently not on systemic antibiotics. 09/10/[address] Zavala. The patient states she started taking her lasix as prescribed and feels her leg swelling is decreasing. She does not report increased drainage from the bilateral lower extremity venous ulcers and is using only topical gentamicin ointment. She states she's wearing her compression stockings during the day as recommended. She's also drinking 1-2 Ensure protein drinks daily to address her protein calorie malnutrition. 09/03/[address] Zavala. The patient does not report fever or chills but admits to being noncompliant with her diuretic therapy. Her weight is up 13 lbs in the past two weeks. She also reports a rash after starting her ampicllin and stopped using it on Sunday. She also states she's drinking one Ensure daily to address her protein calorie malnutrition. 08/27/[address] Zavala. The patient has been wearing her Tetragrips to the level of the ankles as recommended. She's taking ampicillin for an Enterococcus positive wound culture reported on 08/21/14. She does not report pain or increased drainage from the venous ulcers. 08/20/[address] Zavala. The patient states she's not comfortable wearing the compression wraps and they tend to slip down her legs. She does not report pain or drainage from the bilateral lower leg venous ulcer sites and states she's much prefer using her compression stockings instead of wraps. She also continues on doxycycline and does not report adverse side effects. 08/11/14 Seen by Elliot Hernandez PA-C. The patient reports that her wraps slid down her legs again and she finds them uncomfortable and difficult to comply with. She was able to find her old Juxtalite compression stocking for her left leg only and believes her other one is lost. She also reports that she has previously used the same stocking, on both legs by alternating the application of the stockings. 07/30/14 The patient tolerated the compression wraps without difficulty and they were able to stay in place until her appointment today. She continues on doxycycline and states she has no pain associated with the leg ulcers. 07/28/14 The patient tolerated the compression wraps without difficulty and feels her bilateral lower leg ulcers are much improved. She does not report pain or increased drainage and continues on doxycycline. 07/23/14 The patient feels her leg swelling is increasing somewhat and states she wears her compression stockings most days. She does not report increase pain or drainage associated with her bilateral lower leg ulcers and she continues on doxycycline for cellulitis in the lower legs. Of note, her prealbumin was 13.7 in early June and she's was advised to drink and Ensure daily at the time. In regards to her weight it's been fluctuating recently which probably has more to do with water retention than nutrition. 07/16/14 The patient feels the drainage from her leg ulcers has decreased considerably since her last visit and she's remains compliant with her antibiotic therapy along with wearing her compression stockings as recommended. 07/09/14 The patient reports decreased pain and drainage from her venous leg ulcers. 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 Her diuretics have not been changed. 07/02/14 The patient has two new ulcers on her lower legs today and is unclear as to whether she's been wearing compression stockings at home. Of note, her compression wraps have not stayed in place in the past due to the significant narrowing of her legs below the calf muscles. She also states she's on a diuretic although I do not see one on her recent discharge medication list. She' s had a 10 lb weight gain over the past 2 weeks. 06/26/14 The patient returns to the clinic with new lower leg wounds which she states were first noticed a couple of days ago but she does not recall injury to the sites. She states she' s been wearing her compression stockings as recommended. Of note, her prealbumin on 06/15/14 was 13.7. 06/17/14 The patient feels her leg swelling and ulcers are much improved and does not report increased drainage or pain. 06/10/14 The patient does not report any new issues regarding her leg ulcers however she does have a number of new wounds on the lower legs including a pressure ulcer on the left heal. She's also off of antibiotics now with no reported fever or increase in drainage. The dressings on the left leg were noted to be dried and adherent to the underlying ulcers. 06/03/14 The patient was recently discharged to [facility] following treatment for severe left leg cellulitis an bilateral venous ulcers. She as found to have considerable fecal material over both lower legs and her wound culture grew on streptococcus. She continues on IV antibiotics and feels the leg pain is much improved. ____ Patient admitted to hospital 2 weeks ago for cellulitis in her right leg. Over ten excoriated areas on right leg, and very swollen. 08/15/12 everything went ok with the wraps. 08/19/12 Dressing came off last night. Tubigrip on 08/27/12 Arrives without tubigrip on legs. States has been wearing but not this am. Has scattered superficial ulcers over lower right leg. States been using dry skin cream. Had dressings from last , [address] mid tibia 09/03 Patient arrived to clinic with wrap intact on right leg and medigrip on left leg. States she is having no pain and that legs seem to be doing fine. 03/07/13- Patient is being seen by us today because she had cellulitis in her left leg, was admitted into the hospital on 02/20/13 and discharged on 02/28/13. Is now residing at [facility]. Her leg has cleared up, scattered areas of erythema and some excoriations are present. Edema measurements are similar to patient's last visit. 03/28/13 Pt states she has been wearing compression stockings at home but isn't wearing them today. No new concerns or complaints. 05/02/13 has been applying cream qOday and tetrigrip stockings. now has 4 areas of wounds to right lower leg. has been taking antibiotic as prescribed 05/14/13 Dressing being changed every other day. No problems or concerns. Wearing tetragrip on right leg but was cutting circulation off in left leg so patient was is not wearing it anymore 05/21/13 Pt took dressings off this am but did not replace with a fresh dressing. 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 06/04/13 Dressing being changed daily. No problems or concerns 06/11/13 Pt states dressing changes going ok at home.Pt states drainage from abdominal wound has decreased and she thinks the rash around belly button has cleared. 06/18/13 Pt states she thinks things are going well. Umbillicus dressing not preformed as instructed and two pieces of foam found in umbillicus. Increase in drainage and pt states it was changed yesterday. Increased odor. 06/23/13- No new problems or concernss. Changing abdomen dressing about every other day, states no problems with dressing changes. Past Medical History This information was obtained from the patient Patient has a medical history of: Peripheral neuropathy Necrotizing fasciitis Childhood rheumatic fever Chronic venous hypertension (with ulcer and inflammation; bilateral lower legs; Enterococcus and Diptheroids positive culture 08/21/14) Protein calorie malnutrition - 06/15/2014 Morbid Obesity Lymphedema Complaints and Symptoms This information was obtained from the patient Patient complains of: General Notes: I have reviewed and concur with the Review of Systems and Past Family Social History documents completed by the clinician, I have reviewed and concur with the Wound Assessment document completed by the clinician Cardiovascular (Central/Peripheral): Lower extremity (leg) swelling Integumentary (Hair/Skin/Nails): Open Sore Musculoskeletal: Assistive Devices Prior Wound History: Drainage, Erythema, Pain Patient denies complaints or symptoms related to: Cardiovascular (Central/Peripheral): Lower extremity (leg) resting pain Constitutional Symptoms (General Health): Chills, Fever, Marked Weight Change Ear/Nose/Mouth/Throat: Hearing Loss / Aid Gastrointestinal (GI): Nausea / Vomiting, Stomach/abdominal pain Hematologic/Lymphatic: Bleeding / Clotting Disorders, Bleeding Tendency Neurological: Loss of Protective Sensation Prior Wound History: Bleeding, Malodor Psychiatric: Memory Loss Respiratory: Oxygen Use, Shortness of Breath Additional Information Does patient have a history of Cancer? Yes? Complete all questions.: No OBJECTIVE Constitutional BP elevated; Afebrile; Alert and in no distress. Well developed. Alert. Clean appearing.. Height/Length: 65 in (165.1 cm), Weight: 291.5 lbs (132.5 kgs), BMI: 48.5, Temperature: 98 ?F ( 36.67 ?C), Pulse: 74 bpm, Respiratory Rate: 18 breaths/min, Blood Pressure: 143/75 mmHg, Pulse Oximetry: 98 %. Cardiovascular: 2+ bilateral lower leg edema. Gastrointestinal (GI): Obese. Nondistended.. Integumentary (Hair, Skin) Mild periwound erythema without warmth. Refer to appropriate clinician wound documentation for this visit; right lower leg ulcer extends to subcut with base partially covered with pink granulation, remainder fibrin and slough. Wound #89 Right, Proximal, Anterior Leg is an acute Partial Thickness Cellulitis and has received a status of Not Healed. Subsequent wound encounter measurements are 0.8cm length x 0.2cm width x 0.1cm depth, with an area of 0.16 sq cm and a volume of 0.016 cubic cm. No tunneling has been noted. No sinus tract has been noted. No undermining has been noted. There was no drainage noted. The patient reports a wound pain of level 0/10. The wound margin is attached. Wound bed has No epithelialization, No eschar, Yes slough, Yes pink, firm granulation. The periwound skin moisture is normal. The periwound skin exhibited: Edema, Erythema. The temperature of the periwound skin is Warm. Periwound skin does not exhibit signs or symptoms of infection. Local Pulse is Palpable. Wound #90 Right, Posterior Ankle is an acute Full Thickness Venous Ulcer and has received a status of Not Healed. Subsequent wound encounter measurements are 1.5cm length x 1.5cm width x 0.1cm depth, with an area of 2.25 sq cm and a volume of 0.225 cubic cm. No tunneling has been noted. No sinus tract has been noted. No undermining has been noted. There is a moderate amount of serous drainage noted which has no odor. The patient reports a wound pain of level 0/ 10. The wound margin is attached. Wound bed has No epithelialization, No eschar, Yes slough, Yes pink, firm granulation. The periwound skin moisture is normal. The periwound skin color is normal. The periwound skin exhibited: Edema. The temperature of the periwound skin is WNL. Periwound skin does not exhibit signs or symptoms of infection. Local Pulse is Palpable. Neurological: Cranial nerves grossly intact with symmetric function normal by informal observation.. ASSESSMENT Active Problems ICD-10 (Encounter Diagnosis) I87.313 - Chronic venous hypertension (idiopathic) with ulcer of bilateral lower extremity (Encounter Diagnosis) L97.812 - Non-pressure chronic ulcer of other part of right lower leg with fat layer exposed (Encounter Diagnosis) L03.115 - Cellulitis of right lower limb PROCEDURES Wound #90 Wound #90 (Venous Ulcer) is located on the right, posterior ankle. A Surgical debridement Total area debrided was 2.25 sq cm. was performed by William Zavala MD. Subcutaneous was removed along with devitalized tissue: exudate. The following instrument(s) were used: curette.A minimal amount of bleeding was controlled with pressure. The procedure was tolerated well with a pain level of 0 throughout and a pain level of 0 following the procedure. Post Debridement Measurements: 1.5cm length x 1.5cm width x 0.1cm depth; with an area of 2.25 sq cm and a volume of 0.225 cubic cm; Additional Information Muscle fascia or bone removed and sent to pathology?: No PLAN Wound Orders: Wound #89 Right, Proximal, Anterior Leg Anesthetic Topical Xylocaine to wound bed. - In clinic. Cleanser Cleanse Wound: - Normal saline and gauze. May Shower. - Must use cast protector or plastic bag when showering. Dressings Primary dressing: - Calomseptine to leg. Compression/Edema Control Elevation of leg(s) above the level of the heart when sitting. Avoid prolonged standing in one place. Multi Layer Wrap: - Coban 2 wrap. Do not get leg(s) with compression wrap wet. If wraps are too tight call the wound care center or remove if you are unable to reach the center. Please remove wraps for numbness, tingling, pain in legs or color changes in toes and call the clinic the same day. If symptoms do not resolve after removing wraps please go to the ER for evaluation. Local pharmacies carry plastic cast protectors that may be used for protection while showering. Wound #90 Right, Posterior Ankle Anesthetic Topical Xylocaine to wound bed. - In clinic. Dressings Pack wound: - Medihoney to wound bed. Compression/Edema Control Elevation of leg(s) above the level of the heart when sitting. Avoid prolonged standing in one place. Multi Layer Wrap: - Coban 2 wrap. Do not get leg(s) with compression wrap wet. If wraps are too tight call the wound care center or remove if you are unable to reach the center. Please remove wraps for numbness, tingling, pain in legs or color changes in toes and call the clinic the same day. If symptoms do not resolve after removing wraps please go to the ER for evaluation. Local pharmacies carry plastic cast protectors that may be used for protection while showering. Additional Orders: Follow-Up Appointments Return Appointment: - - One week. Other information: If you develop fever, chills, increased pain, drainage, redness or swelling please call our office. If after hours, respond to the ER. Should you experience any significant changes in your wound(s) or have any questions regarding your home care instructions please contact the wound center @ [phone]. If after hours, contact your primary care physician or go to the hospital emergency room. Scribing Attestation I attest, as the nurse, that I scribed these orders for the physician. General Notes: Please wear Juxta lite to Left Leg. I've reviewed the clinician's documentation and agree with the evaluation and plan as written. In addition, the patient's ulcer demonstrates evidence of non-viable devitalized tissue which will continue to benefit from sharp debridement to help promote granulation and expedite healing. Also, the patient will complete her course of moxifloxacin as prescribed. Electronic Signature(s) Signed By: Date: William Zavala MD 01/04/2018 06:31:21 Entered By: William Zavala on 01/04/2018 06:24:08
== END ==
PROVIDERS: Family Provider Internal Medicine; PCP Internal Medicine; Visit Provider Internal Medicine
DX: I87.313 Chronic venous hypertension (idiopathic) with ulcer of bilateral lower extremity (principal); L97.812 Non-pressure chronic ulcer of other part of right lower leg with fat layer exposed; L03.115 Cellulitis of right lower limb
CPT/HCPCS: 99211

== ENCOUNTER → 2018-01-10 10:56 | Outpatient (CLI) | payer MEDICARE, OTHER, SELFPAY ==
--- NOTE | 2018-01-10 | OV.WND_ITS ---
Progress Note Details Patient Name: Tiffanie Gomez Patient Number: [id number] PatientPatientDate: 01/10/2018 Clinician: Kerry Kapadia Physician / Electric Track Switch Maintainer: William Zavala SUBJECTIVE Chief Complaint This information was obtained from the patient Venous ulcers to bilateral lower extremities. Allergies Oxycodone (Reaction: severe mental change), Morphine (Reaction: mental change), Hydromorphone (Reaction: mental change), ampicillin (Severity: Severe, Reaction: Itchy rash), vancomycin (Severity: Severe, Reaction: Tachycardia, Chills, Hypertension, Veronika Syndrome), amoxicillin (Severity: Severe, Reaction: Rash, Flushing Nausea Vomiting.), clavulanic acid (Severity: Severe, Reaction: Rash, Flushing nausea vomiting), Codine (Severity: Moderate, Reaction: Hives Vomiting), fluconazole (Severity: Moderate, Reaction: Hives), nafcillin (Severity: Moderate, Reaction: rash), piperacillin (Severity: Moderate, Reaction: rash), fish oil HPI This information was obtained from the patient 01/10/18. Seen by Dr. Zavala. The patient does not report pain or other acute issues regarding the right leg venous ulcers since her last visit and she's tolerating compression therapy without difficulty. The nurse however reports a new venous ulcer over the left lower leg which has not been wrapped recently. 01/03/18. Seen by Dr. Zavala. The patient does not report pain or other acute issues regarding the right leg venous ulcers since her last visit and she continues on moxifloxacin for cellulitis of the left thigh as recommended. 12/27/17. Seen by Dr. Zavala. The patient reports improvement in terms of the right thigh redness despite not being able to start on moxifloxacin until today due to insurance prior authorization approval. Her wound culture grew coag negative Staph, group B Strep, Enterococcus, and Pseudomonas which together significantly limited her antibiotic options. She does not report fevers or feeling unwell however his entire leg is considerably swollen today. 12/20/17. Seen by Dr. Zavala. The patient reports increased redness and swelling over the right medial thigh and states she had sweats and a subjective fever a couple of days ago but feel this has no resolved. She does not report drainage associated with the bilateral lower leg venous ulcers and has tolerated the compression wraps that are treating severe chronic venous hypertension without difficulty. 12/13/17. Seen by Dr. Zavala. The patient does not report pain or other acute issues regarding the bilateral venous ulcers since her last visit and she states she's taking had Lasix as prescribed and tolerated compression wraps without difficulty. 12/06/17. Seen by Dr. Zavala. The patient does not report pain or other acute issues regarding the bilateral venous ulcers since her last visit however she states she's not been taking her Lasix as prescribed and the Coban compression wraps feel down over the weekend. 11/29/17. Seen by Dr. Zavala. The patient does not report pain or other acute issues regarding the bilateral venous ulcers and her right lower leg culture from the last visit has grown a resistant Proteus specie and MSSA for which she's taking levofloxacin and linezolid. 11/26/17. Seen by Dr. Zavala. The patient returns to clinic following discharge from the hospital where she was treated for bilateral lower leg cellulitis associated with recurrence of her recently healed bilateral lower leg venous ulcers and severe chronic venous hypertension. She does not report pain in the legs, prescribed upon discharge. 10/18/17. Seen by Dr. Zavala. The patient does not report pain or other acute issues regarding the bilateral venous ulcers and she's tolerating compression therapy that's treating bilateral chronic venous hypertension. 10/11/17. Seen by Dr. Zavala. The patient does not report pain or other acute issues regarding the bilateral venous ulcers and she's tolerating compression therapy that's treating bilateral chronic venous hypertension however she continues to cut the tops of the wraps due to itching and rubbing. 10/04/17. Seen by Elliot Hernandez PA-C. The patient reports stable drainage from her left lower leg venous ulcers. 09/27/17. Seen by Dr. Zavala. The patient reports significant itching associated with the left lower leg compression wrap and has again cut the top portion of the wrap. She's also not been taking her diuretic as prescribed the past few days and staff feel the bilateral lower leg edema has increased considerably since her last visit. Otherwise there's no reported increasing in drainage or pain associated with the bilateral lower leg venous ulcers. 09/20/17. Seen by Dr. Zavala. The patient has tolerated compression therapy that's treating severe bilateral lower leg chronic venous hypertension and associated venous ulcers and staff do not report significant drainage on the dressings. 09/13/17. Seen by Dr. Zavala. The patient has tolerated compression therapy that' s treating severe bilateral lower leg chronic venous hypertension and associated venous ulcers and staff do not report significant drainage on the dressings. 09/06/17. Seen by Dr. Zavala. The patient does not report pain associated with bilateral lower leg venous ulcers since her last visit and she tolerated compression therapy that treating severe bilateral chronic venous hypertension without difficulty. 08/30/17. Seen by Dr. Zavala. The patient does not report pain associated with bilateral lower leg venous ulcers since her last visit and she tolerated compression therapy that treating severe bilateral chronic venous hypertension without difficulty. 08/23/17. Seen by Dr. Zavala. The patient does not report increased drainage or pain associated with bilateral lower leg venous ulcers since her last visit. She reports that she arrived today without dressings over he ulcers however. Her wound culture from the last visit was unremarkable. 08/16/17. Seen by Dr. Zavala. The patient does not report increased drainage or pain associated with bilateral lower leg venous ulcers since her last visit. 08/09/17. Seen by Dr. Zavala. The patient does not report increased drainage or pain associated with bilateral lower leg venous ulcers since her last visit. 08/02/17. Seen by Dr. Zavala. The patient returns for clinic following a recent admission to the hospital for bilateral lower extremity cellulitis. She seen by her primary care provider earlier this week who increased her Lasix from 40 mg 80 mg daily. Despite this she reports significant leg swelling and monitor mental regarding whether she is taking her Lasix as prescribed. She also continues on dicloxacillin for the cellulitis. 07/05/17. Seen by Dr. Zavala. The patient does not report increased drainage or pain associated with bilateral lower leg venous ulcers since her last visit. She states that she is wearing and changing her compression stockings although the nurses note that they were dated at the last visit and do not appear to be changed since then. 06/28/17. Seen by Elliot Hernandez PA-C. The patient reports decreased drainage from her lower extremity ulcers. 06/21/17. Seen by Elliot Hernandez PA-C. The patient reports that part of her leg wraps fell down but the portion near her ankles and feet stayed in place. She does not report increased drainage from her lower extremity venous ulcers. 06/14/17. Seen by Elliot Hernandez PA-C. The patient reports no increase in drainage from her bilateral lower extremity ulcers. 06/07/17. Seen by Elliot Hernandez PA-C. The patient reports increased pain in her left foot and increased drainage from her left foot ulcer. 05/31/17. Seen by Dr. Zavala. The patient was recently discharged from the hospital following an admission for left lower leg and left foot cellulitis. She was treated with IV antibiotics and is now on oral levofloxacin and cefdinir. She was also heavily diuresed and has lost 16 pounds from her last visit. She does not report fevers, feeling unwell, nor adverse side effects of her antibiotics. 05/24/17. Seen by Elliot Hernandez PA-C. The patient reports that she has had a low grade fever 05/17/17. Seen by Elliot Hernandez PA-C. The patient reports decreased drainage from her right lower leg venous ulcers since her last evaluation. 05/10/17. Seen by Elliot Hernandez PA-C. The patient reports stable drainage from her right lower leg venous ulcers. When we noted a new ulcer, more proximal than the existing ones, she stated that this new ulcer has been continuously present for a few weeks without worsening or improving. Associated drainage from this new ulcer has been moderate with minimal, non-radiating pain noted. 05/03/17. Seen by Dr. Zavala. The patient does not report increased drainage associated with the chronic right lower leg venous ulcers since her last visit. 04/26/17. Seen by Dr. Zavala. The patient does not report increased drainage associated with the chronic right lower leg venous ulcers since her last visit and she is applying topical antibiotic to treat the MSSA positive wound culture as recommended. 04/19/17. Seen by Dr. Zavala. The patient does not report increased drainage associated with the chronic right lower leg venous ulcers since her last visit. 04/12/17. Seen by Dr. Zavala. The patient does not report pain or increased drainage associated with chronic right lower leg venous ulcers since her last visit. Recent wound culture grew MSSA plus group B streptococcus and Buttiauxella agrestis which is a gram-negative mi. She states she is taking her diuretic, applying topical gentamicin to the wound base, and wearing compression stockings to manage chronic venous hypertension as recommended. 04/05/17. Seen by Dr. Zavala. The patient does not report pain or increased drainage associated with chronic right lower leg venous ulcers since her last visit. 03/29/17. Seen by Dr. Zavala. The patient does not report pain or increased drainage associated with chronic right lower leg venous ulcers since her last visit. 03/22/17. Seen by Dr. Zavala. The patient does not report pain nor significant drainage associated with chronic right lower leg venous ulcer since her last visit. The staff report some new ulcers however over the right lower leg today. 03/15/17. Seen by Dr. Zavala. The patient does not report pain nor significant drainage associated with chronic right lower leg venous ulcer since her last visit and she's wearing her compression stocking as recommended that's treating right lower leg chronic venous hypertension. Her dressing has been in place since Sunday and the staff report some new periwound erythema and possible new areas of skin breakdown. 02/22/17. Seen by Dr. Zavala. The patient does not report pain nor significant drainage associated with chronic right lower leg venous ulcer since her last visit. 02/15/17. Seen by Dr. Zavala. The patient does not report pain nor significant drainage associated with chronic right lower leg venous ulcer since her last visit. 02/08/17. Seen by Elliot Hernandez PA-C. The patient reports she has been unable to change her dressings on her lower legs and has been unable to bathe. Her dressings have remained in place for >1 week. She is hoping to have home health come and help her with dressing changes. Of note, she does not leave the house, except for doctors appointments, and when she does leave it is with great difficulty. 01/11/17. Seen by Dr. Zavala. The patient does not report pain nor significant drainage associated with chronic right lower leg venous ulcer since her last visit. 01/04/17. Seen by Elliot Hernandez PA-C. The patient reports no increase in drainage from her lower extremity ulcers since her last evaluation. 12/28/16. Seen by Elliot Hernandez PA-C. The patient reports decreased drainage from her lower extremity ulcers. 12/21/16. Seen by Elliot Hernandez PA-C. The patient reports decreased drainage from her lower extremity ulcers since her last evaluation. 12/14/16. Seen by Elliot Hernandez PA-C. The patient reports decreased drainage from her lower extremity ulcers. 12/07/16. Seen by Dr. Zavala. The patient does not report significant drainage or pain associated with the chronic right lateral lower leg venous ulcer. The staff however report a new ulcer on the anterior right lower leg today. 11/30/16. Seen by Elliot Henrandez PA-C. The patient reports decreased drainage from her lower leg venous ulcers. 11/23/16. Seen by Dr. Zavala. The patient does not report significant drainage or pain associated with the chronic right lateral lower leg venous ulcer. The staff do report a new ulcer on the posterior left lower leg today. The patient is now being seen at the end of the day and her daughter is accompanying her due to last week's episode of flea infestation and the need for infectious control to be involved in her care plan. Adult Protective Services were also alerted over the past week however there is no feedback yet regarding their involvement. 11/16/16. Seen by Elliot Hernandez PA-C. The patient reports no increase in drainage from her right lower leg venous ulcers. Nursing reports that approximately 20-30 fleas jumped off of the patient's legs including from under her wound dressing, when it was removed. The patient denies having fleas. 11/09/16. Seen by Elliot Hernandez PA-C. The patient reports continued drainage from her right lower leg venous ulcers despite topical antimicrobial therapy. Her recent culture grees pseudomonas stutzeri with multiple sensitivities. 11/02/16. Seen by Dr. Zavala. The patient does not report increased pain associated with the chronic right lower leg venous ulcers however staff report increased colored drainage on her dressings. She does not report fevers or feeling unwell and is not currently on antibiotics. 10/24/16. Seen by Dr. Zavala. The patient does not report increased drainage or pain associated with the right lower leg venous ulcers since her last visit. 10/21/16. Seen by Elliot Hernandez PA-C. The patient's wound culture grew staph aureus. The patient reports stable drainage from her right lower leg venous ulcer. 10/12/16. Seen by Elliot Hernandez PA-C. The patient returns to us after a hospitalization and SNF stay for cellulitis of her right lower leg. Currently she has home health assisting her with her dressing changes for her right lower leg venous ulcer and they have recommended she present to us for more specialized care. 08/23/16. Seen by Dr. Zavala. The patient was unable to start her IV antibiotics that were prescribed at her visit last week due to financial limitations. She is prescribed cefepime at that time to treat the refractory and multidrug-resistant pseudomonas positive wound culture. She reports increased redness in the leg but no significant pain, fevers, or feeling unwell. 08/10/16. Seen by Dr. Zavala. The staff report significant drainage and malodor associated with the chronic right lower leg non-pressure ulcers and the patient continues on antibiotics for the recent Proteus and Enterococcus positive culture but there's a discrepancy on how many days she has left to take. She does not report pain in the leg, fevers, or feeling unwell and states she's changing the dressing twice daily. 07/26/16. Seen by Dr. Zavala. The patient continues on dual antibiotic therapy for the recent Proteus and Entercoccus positive wound cultures taken from the chronic right lower leg venous ulcers without reporting adverse side effects. She feels the larger posterior right lower leg ulcer continues to produce significant drainage but she does not report pain at the site. She states she's wearing her compression stocking and taking her diuretics as prescribed despite showing increased swelling in the leg today. She does not report fevers or feeling unwell in general. 07/20/16. Seen by Dr. Zavala. The patient does not report pain continues report drainage associated with the right chronic venous ulcers. She continues on dual antibiotic therapy without reporting adverse side effects for the recent Proteus and enterococcus positive wound cultures and does not report adverse side effects. She does not report fevers or feeling unwell in general. 07/13/16. Seen by Dr. Zavala. The patient does not report pain continues report drainage associated with the right chronic venous ulcers. She continues on dual antibiotic therapy for the recent Proteus and enterococcus positive wound cultures and does not report adverse side effects. 07/06/16. Seen by Dr. Zavala. The patient does not report pain or increased drainage associated with the chronic right lower leg venous ulcers nor right 3rd toe trauma wound. The staff however continue to report some blue-green drainage from the posterior ulcer. She states she is applying gentamicin ointment topically to the ulcers and is now off of oral antibiotics. She does not report fevers or feeling unwell. 06/29/16. Seen by Dr. Zavala. The patient continues applying topical gentamicin ointment for the Pseudomonas positive culture taken from the right lower leg venous ulcer. The staff continue to report a blue green drainage from the site however the patient does not report significant pain nor significant drainage or pain associated with the other right lower leg venous ulcers. 06/22/16. Seen by Dr. Zavala. The patient continues on antibiotics for the Pseudomonas positive culture taken from the right lower leg venous ulcer. The staff continue to report a blue green drainage from the site however the patient does not report significant pain nor significant drainage or pain associated with the other right lower leg venous ulcers. 06/15/16. Seen by Dr. Zavala. The patient continues on ciprofloxacin for the right lower leg ulcer infection which cultured Pseudomonas. She does not report adverse side effects and feels the drainage has decreased somewhat. The does not report pain at this nor the other lower leg venous ulcers and states she's wearing her compression stockings as recommended. 06/05/16. Seen by Elliot Hernandez PA-C. The patient presents today with 3 new ulcers on her right lower leg which began spontaneously. She has had stable drainage from her previous venous ulcers. 05/18/16. Seen by Dr. Zavala. The patient does not report drainage or pain associated with the bilateral lower leg venous ulcers since her last visit. Of note, the staff report blue/ green drainage on the dressing covering the right lower leg ulcer. 05/11/16. Seen by Dr. Zavala. The patient does not report drainage or pain associated with the bilateral lower leg venous ulcers since her last visit. She should have completed her levofloxacin however states she still has a few tablets left. Of note, she has a habit of not taking her antibiotics as prescribed. 05/04/16 Seen by Elliot Hernandez PA-C. The patient reports no drainage from her left leg venous ulcers since her last dressing change, though she reports a new area of drainage on the right lower anterior leg. 04/27/16. Seen by Dr. Zavala. The patient does not report drainage or pain associated with the bilateral lower leg venous ulcers since her last visit. She's now on levofloxacin and cefdinir for the recent polymicrobial wound culture and does not report adverse side effects, fevers, or feeling unwell in general 04/20/15. Seen by Dr. Zavala. The patient does not report drainage or pain associated with the bilateral lower leg venous ulcers since her last visit however staff report periwound erythema and drainage from most of the ulcers. Of note, she's to be wearing compression stockings to treat bilateral chronic venous hypertension but states she has not for the past day while they're being washed. 03/30/16. Seen by Dr. Zavala. The staff reports a number of new left lower leg venous ulcers. The patient reportedly has been wearing a larger compression stocking due to the recommended size being too tight. The patient states she's been taking her diuretic is prescribed and does not report pain or drainage associated with the bilateral lower leg venous ulcers. She is also on doxycycline now for the staph cultured from her right leg ulcer last visit. 03/23/16. Seen by Dr. Zavala. The staff report a new anterior right lower leg ulcer today however the patient is unaware of this issue. She does not report pain at the site nor at the site of the more lateral/posterior chronic non-pressure ulcer. She states she's wearing her compression stockings however staff note that they appear to be quite dirty. 03/02/16. Seen by Dr. Zavala. The patient does not report pain or significant drainage associated with the chronic right lower leg venous ulcer over the past week. She states that she is compliant in terms of taking her diuretic and wearing compression stockings although she states she did not take her diuretic prior to her appointment today. 02/24/16. Seen by Dr. Zavala. The patient does not report pain or significant drainage associated with the chronic right lower leg venous ulcer over the past week. 02/10/16. Seen by Dr. Zavala. The patient does not report pain or significant drainage associated with the chronic right lower leg venous ulcer and she states she's wearing her compression stocking and taking her diuretic as recommended to address the severe chronic venous hypertension in both leg. She states she's still taking Bactrim, and has been taking it as scheduled, despite the fact this should have run out last week. 02/03/16. Seen by Dr. Zavala. The patient does not report pain or significant drainage associated with the chronic right lower leg venous ulcer and she states she's wearing her compression stocking and taking her diuretic as recommended to address the severe chronic venous hypertension in both legs. She also continues on Bactrim for the recent MRSA positive wound culture and does not report adverse side effects. 01/27/16. Seen by Dr. Zavala. The patient does not report pain or significant drainage associated with the chronic right lower leg venous ulcer and she states she's wearing her compression stocking and taking her diuretic as recommended to address the severe chronic venous hypertension in both legs. She also continues on Bactrim for the recent MRSA and Enterobacter positive wound culture without reporting adverse side effects. 01/20/16. Seen by Dr. Zavala. The patient does not report pain or significant drainage associated with the chronic right lower leg venous ulcer and she states she's wearing her compression stocking and taking her diuretic as recommended to address the severe chronic venous hypertension in both legs. 01/13/16. Seen by Dr. Zavala. The patient does not report pain or significant drainage associated with the chronic right lower leg venous ulcer and she states she's wearing her compression stocking and taking her diuretic as recommended to address the severe chronic venous hypertension in both legs. She does not report pain or recurrence of cellulitis in the left lower leg that was recently treated during a hospital admission. 01/06/16. Seen by Dr. Zavala. The patient was recently discharged from care home following a hospital admission for severe left lower leg cellulitis. She feels this has resolved and she does not report significant drainage associated with remaining chronic right lower leg venous ulcer. She was treated with IV antibiotics for the cellulitis and has been on her diuretic as prescribed to address the significant bilateral chronic venous hypertension. 12/16/15. Seen by Dr. Zavala. The patient presents with her daughter today who's very concerned her mother has been having 'flu-like' symptoms and feeling quite unwell the past couple of days. The patient reports increased redness and swelling in the left lower leg along with a subjective fever. The patient does not report a cough or symptoms unrelated to her left lower leg at this time. 12/09/15. Seen by Dr. Zavala. The patient presents with a few new venous ulcers over the right lower leg. She states she's not wearing her compression stocking because she was advised as such. She's been placing a Xeroform dressing over the ulcers although we recommended Exudry. She also states she did not take her diuretic today but has been taking it as prescribed otherwise. She does not report pain associated with the right lower leg venous ulcers nor fevers or feeling unwell. 12/02/15. Seen by Dr. Zavala. The patient does not report pain or increase drainage associated with her chronic right lower leg venous ulcers over the past week. 11/11/15. Seen by Dr. Zavala. The patient states she's wearing her compression stockings and taking her diuretic as prescribed. She does not report pain or drainage associated with the chronic bilateral lower leg venous ulcers. 11/04/15. Seen by Dr. Zavala. The patient does not report significant drainage or pain associated with the bilateral venous ulcers over the past week. She's taking her diuretic as prescribed and wearing compression stockings as recommended. 10/28/15. Seen by Dr. Zavala. The patient does not report pain or significant drainage associated with the right lower leg venous ulcer in the past week. She states she's wearing her compression stockings as recommended. She's also been taking her antibiotic is prescribed to treat the right lower leg wound infection. 10/21/[address] Zavala. The patient does not report pain or significant drainage associated with the bilateral venous ulcers and states she's wearing her compression stockings and taking her diuretic as directed. Her wound culture from the last visit grew Enterobacter and Proteus and she's not current taking oral antibiotics. 10/14/[address] Zavala. The patient feels her bilateral leg swelling is decreasing and she states she remain compliant with her diuretic therapy and wearing of compression stockings to treat chronic venous hypertension and associated multiple bilateral venous ulcers. She's applying gentamicin ointment to the ulcers to treat the recent Proteus and Enterobacter positive wound culture and she does not report significant pain or drainage associated with any of the ulcers. 10/07/[address] Zavala. The patient reports continued drainage associated with the bilateral lower leg venous ulcers. She also reports minimal pain associated with the right anterior lower leg ulcer. She's not wearing her compression stockings daily as recommended and skips a dose of Lasix intermittently. 09/30/[address] Zavala. The patient reports minimal pain and drainage associated with the chronic right and left lower leg venous ulcers over the past week. 09/23/15 Seen by Elliot Hernandez PA-C. The patient reports stable drainage from her lower leg ulcers. 09/16/[address] Zavala. The patient continues to report swelling and erythema of the right lower leg and some mild discomfort associated with the distal venous ulcer. She's wearing compression stockings as recommended to treat the chronic venous hypertension and she's completed a course of cefdinir within the last week for a polymicrobial wound culture and she does no report adverse side effects. She does not report fever or feeling unwell in general otherwise. 09/09/[address] Zavala. The patient states her right lower leg pain is improving and she continues on cefdinir for the recent Staph and Proteus positive wound culture. She also states she's wearing he compression stockings as recommended. 09/02/[address] Zavala. The patient reports persistent swelling and redness of the right lower leg in the periwound areas and states she continues to take her antibiotics although she should have completed her course after her last visit. Her recent wound culture grew Proteus and MSSA. She does not report significant drainage from the bilateral lower leg venous ulcers and is wearing her compression stockings as recommended. 08/26/[address] Zavala. The patient does not report significant pain or drainage associated with her bilateral lower leg venous ulcers and she's now on cefdinir for a Staph and Proteus positive wound culture taken at the last visit. She feels her leg swelling and redness have improved and she's started taking her diuretic again as recommended. She's not yet wearing her compression stockings however. 08/19/[address] Zavala. The patient returns to clinic reporting new ulcers over the bilateral lower legs She reports increased swelling and redness of the right lower leg starting about two weeks ago but no fever or associated pain. She also admits to not taking her Lasix as scheduled due to urinary incontinence issues and has been unable to apply her compression stockings due to the increased swelling. 05/27/[address] Zavala. The patient does not report significant drainage from her bilateral lower leg venous ulcers and she's wearing compression stockings and taking Lasix as recommended. 05/13/[address] Zavala. The patient's weight has increased by 7 lbs since her last visit and the staff report new venous ulcers over the lower legs. The patient states she missed her lasix dosage the past two days as well but has been wearing her compression stockings daily. 04/22/[address] Zavala. The patient does not report any new leg ulcers nor significant drainage or pain from the previously documented bilateral lower leg venous ulcers. 04/15/[address] Zavala. The staff report a new left posterior left lower leg ulcer however the patient does not know how this may have occurred and states it is not painful. In fact she does not report significant drainage or pain associated with any of her bilateral lower leg venous ulcers. 04/01/[address] Zavala. The patient reports a new right anterior lower leg ulcer that she feels occurred as an abrasion from the Tetragrip compression stocking. She remains compliant with compression therapy to treat her chronic venous hypertension and bilateral lower leg venous ulcers and does not report significant pain or drainage from any. 03/18/[address] Zavala. The patient does not report any new ulcers nor significant drainage or pain associated with the chronic bilateral lower leg venous ulcers. 03/10/[address] Zavala. The patient reports a new ulcer on the right lower leg but does not report trauma to the area. She states she's wearing her compression stockings as recommended. She does not report pain or significant drainage from the bilateral lower leg chronic venous ulcers and states she's compliant with her diuretic therapy which has been treating her leg edema. 03/04/[address] Zavala. The patient reports new ulcers over both lower legs but does not recall when in the past week they occurred nor any inciting events. She continues to compression stockings as recommended for chronic venous hypertension and does not report significant pain or drainage associated with any of the venous ulcers. 02/18/[address] Zavala. The patient reports a new ulcer over the anterior right lower leg the was first noticed yesterday when taking off her compression stocking. It started as a blister and she states it's not painful. She also states she's taking her diuretic as prescribed. 01/28/[address] Zavala. The patient does not report any problems regarding her right lower leg venous ulcer and she states she's wearing her compression stockings and taking her diuretic as prescribed. 01/14/[address] Zavala. The patient does not report significant drainage or pain associated with the bilateral lower leg venous ulcers. She states she's been compliant with her diuretic therapy and compression stockings and her weight is unchanged from last week. 01/07/[address] Zavala. The patient does not report drainage or pain associated with her bilateral lower leg venous ulcers and she was able to wear her compression stockings as recommended. She also reports being compliant with her diuretic therapy. 12/31/[address] Zavala. The patient was recently discharged from the hospital following treatment for left leg cellulitis. She feels the swelling and erythema are much improved and she's completed her course of antibiotics. She has recurrence of venous ulcers over both lower legs and reports moderate drainage but no pain. She's also reports being compliant with her diuretic therapy but has not been wearing compression stockings as we've recommended repeatedly in the past. 09/18/[address] Zavala. The patient has a fever of 101.9 today and complains only of some shortness of breath. She does not report increased swelling, pain, or drainage associated with her bilateral lower leg venous ulcers and she's currently not on systemic antibiotics. 09/10/[address] Zavala. The patient states she started taking her lasix as prescribed and feels her leg swelling is decreasing. She does not report increased drainage from the bilateral lower extremity venous ulcers and is using only topical gentamicin ointment. She states she's wearing her compression stockings during the day as recommended. She's also drinking 1-2 Ensure protein drinks daily to address her protein calorie malnutrition. 09/03/[address] Zavala. The patient does not report fever or chills but admits to being noncompliant with her diuretic therapy. Her weight is up 13 lbs in the past two weeks. She also reports a rash after starting her ampicllin and stopped using it on Sunday. She also states she's drinking one Ensure daily to address her protein calorie malnutrition. 08/27/[address] Zavala. The patient has been wearing her Tetragrips to the level of the ankles as recommended. She's taking ampicillin for an Enterococcus positive wound culture reported on 08/21/14. She does not report pain or increased drainage from the venous ulcers. 08/20/[address] Zavala. The patient states she's not comfortable wearing the compression wraps and they tend to slip down her legs. She does not report pain or drainage from the bilateral lower leg venous ulcer sites and states she's much prefer using her compression stockings instead of wraps. She also continues on doxycycline and does not report adverse side effects. 08/11/14 Seen by Elliot Hernandez PA-C. The patient reports that her wraps slid down her legs again and she finds them uncomfortable and difficult to comply with. She was able to find her old Juxtalite compression stocking for her left leg only and believes her other one is lost. She also reports that she has previously used the same stocking, on both legs by alternating the application of the stockings. 07/30/14 The patient tolerated the compression wraps without difficulty and they were able to stay in place until her appointment today. She continues on doxycycline and states she has no pain associated with the leg ulcers. 07/28/14 The patient tolerated the compression wraps without difficulty and feels her bilateral lower leg ulcers are much improved. She does not report pain or increased drainage and continues on doxycycline. 07/23/14 The patient feels her leg swelling is increasing somewhat and states she wears her compression stockings most days. She does not report increase pain or drainage associated with her bilateral lower leg ulcers and she continues on doxycycline for cellulitis in the lower legs. Of note, her prealbumin was 13.7 in early June and she's was advised to drink and Ensure daily at the time. In regards to her weight it's been fluctuating recently which probably has more to do with water retention than nutrition. 07/16/14 The patient feels the drainage from her leg ulcers has decreased considerably since her last visit and she's remains compliant with her antibiotic therapy along with wearing her compression stockings as recommended. 07/09/14 The patient reports decreased pain and drainage from her venous leg ulcers. She has been compliant with her doxycycline and tetra experience planning strategist compression. Her diuretics have not been changed. 07/02/14 The patient has two new ulcers on her lower legs today and is unclear as to whether she's been wearing compression stockings at home. Of note, her compression wraps have not stayed in place in the past due to the significant narrowing of her legs below the calf muscles. She also states she's on a diuretic although I do not see one on her recent discharge medication list. She' s had a 10 lb weight gain over the past 2 weeks. 06/26/14 The patient returns to the clinic with new lower leg wounds which she states were first noticed a couple of days ago but she does not recall injury to the sites. She states she' s been wearing her compression stockings as recommended. Of note, her prealbumin on 06/15/14 was 13.7. 06/17/14 The patient feels her leg swelling and ulcers are much improved and does not report increased drainage or pain. 06/10/14 The patient does not report any new issues regarding her leg ulcers however she does have a number of new wounds on the lower legs including a pressure ulcer on the left heal. She's also off of antibiotics now with no reported fever or increase in drainage. The dressings on the left leg were noted to be dried and adherent to the underlying ulcers. 06/03/14 The patient was recently discharged to [facility] from [facility] following treatment for severe left leg cellulitis an bilateral venous ulcers. She as found to have considerable fecal material over both lower legs and her wound culture grew on streptococcus. She continues on IV antibiotics and feels the leg pain is much improved. ____ Patient admitted to hospital 2 weeks ago for cellulitis in her right leg. Over ten excoriated areas on right leg, and very swollen. 08/15/12 everything went ok with the wraps. 08/19/12 Dressing came off last night. Tubigrip on 08/27/12 Arrives without tubigrip on legs. States has been wearing but not this am. Has scattered superficial ulcers over lower right leg. States been using dry skin cream. Had dressings from last , [address] mid tibia 09/03 Patient arrived to clinic with wrap intact on right leg and medigrip on left leg. States she is having no pain and that legs seem to be doing fine. 03/07/13- Patient is being seen by us today because she had cellulitis in her left leg, was admitted into the hospital on 02/20/13 and discharged on 02/28/13. Is now residing at [facility]. Her leg has cleared up, scattered areas of erythema and some excoriations are present. Edema measurements are similar to patient's last visit. 03/28/13 Pt states she has been wearing compression stockings at home but isn't wearing them today. No new concerns or complaints. 05/02/13 has been applying cream qOday and tetrigrip stockings. now has 4 areas of wounds to right lower leg. has been taking antibiotic as prescribed 05/14/13 Dressing being changed every other day. No problems or concerns. Wearing tetragrip on right leg but was cutting circulation off in left leg so patient was is not wearing it anymore 05/21/13 Pt took dressings off this am but did not replace with a fresh dressing. PT has tetra experience planning strategist to right leg only.05/28/13 Pt states she still has a rash on her abdomen that bleeds a little. 06/04/13 Dressing being changed daily. No problems or concerns 06/11/13 Pt states dressing changes going ok at home.Pt states drainage from abdominal wound has decreased and she thinks the rash around belly button has cleared. 06/18/13 Pt states she thinks things are going well. Umbillicus dressing not preformed as instructed and two pieces of foam found in umbillicus. Increase in drainage and pt states it was changed yesterday. Increased odor. 06/23/13- No new problems or concernss. Changing abdomen dressing about every other day, states no problems with dressing changes. Past Medical History This information was obtained from the patient Patient has a medical history of: Peripheral neuropathy Necrotizing fasciitis Childhood rheumatic fever Chronic venous hypertension (with ulcer and inflammation; bilateral lower legs; Enterococcus and Diptheroids positive culture 08/21/14) Protein calorie malnutrition - 06/15/2014 Morbid Obesity Lymphedema Complaints and Symptoms This information was obtained from the patient Patient complains of: General Notes: I have reviewed and concur with the Review of Systems and Past Family Social History documents completed by the clinician, I have reviewed and concur with the Wound Assessment document completed by the clinician Cardiovascular (Central/Peripheral): Lower extremity (leg) swelling Integumentary (Hair/Skin/Nails): Open Sore Musculoskeletal: Assistive Devices Prior Wound History: Drainage, Erythema, Pain Patient denies complaints or symptoms related to: Cardiovascular (Central/Peripheral): Lower extremity (leg) resting pain Constitutional Symptoms (General Health): Chills, Fever, Marked Weight Change Ear/Nose/Mouth/Throat: Hearing Loss / Aid Gastrointestinal (GI): Nausea / Vomiting, Stomach/abdominal pain Hematologic/Lymphatic: Bleeding / Clotting Disorders, Bleeding Tendency Neurological: Loss of Protective Sensation Prior Wound History: Bleeding, Malodor Psychiatric: Memory Loss Respiratory: Oxygen Use, Shortness of Breath Additional Information Does patient have a history of Cancer? Yes? Complete all questions.: No OBJECTIVE Constitutional Vital signs reviewed and noted. Well developed. Alert. Clean appearing.. Height/ Length: 65 in (165.1 cm), Weight: 289 lbs (131.36 kgs), BMI: 48.1, Temperature: 98 ?F (36.67 ?C), Pulse: 42 bpm, Respiratory Rate: 18 breaths/min, Blood Pressure: 117/71 mmHg, Pulse Oximetry: 97 %. Respiratory: No respiratory distress. Even respirations and without use of accessory muscles.. Cardiovascular: 2+ right lower extremity edema; 3+ on the left. Gastrointestinal (GI): Obese. Nondistended.. Integumentary (Hair, Skin) Hyperkeratotic changes noted over the bilateral lower legs. Refer to appropriate clinician wound documentation for this visit; left lower leg ulcer extends to subcut with base partially covered with pink granulation, remainder fibrin and slough; right lower leg ulcer extends to dermis. Wound #89 Right, Proximal, Anterior Leg is an acute Partial Thickness Cellulitis and has received a status of Not Healed. Subsequent wound encounter measurements are 0.6cm length x 0.2cm width x 0.2cm depth, with an area of 0.12 sq cm and a volume of 0.024 cubic cm. No tunneling has been noted. No reports a wound pain of level 0/10. The wound margin is attached. Wound bed has No epithelialization, No eschar, Yes slough, Yes pink, firm granulation. The periwound skin moisture is normal. The periwound skin exhibited: Edema, Hemosiderosis. The periwound skin did not exhibit: Erythema. The temperature of the periwound skin is Warm. Periwound skin does not exhibit signs or symptoms of infection. Local Pulse is Palpable. General Notes: Satellite noted Wound #90 Right, Posterior Ankle is an acute Full Thickness Venous Ulcer and has received an outcome of Healed - no new wound(s). Subsequent wound encounter measurements are 0cm length x 0cm width with no measurable depth, with an area of 0 sq cm . No tunneling has been noted. No sinus tract has been noted. No undermining has been noted. There is a moderate amount of serous drainage noted which has no odor. The patient reports a wound pain of level 0/10. The wound margin is attached. Wound bed has Yes epithelialization, No eschar, No slough, No granulation. The periwound skin moisture is normal. The periwound skin color is normal. The periwound skin exhibited: Edema. The temperature of the periwound skin is WNL. Periwound skin does not exhibit signs or symptoms of infection. Local Pulse is Palpable. Wound #91 Left, Posterior Leg is a chronic Partial Thickness Venous Ulcer and has received a status of Not Healed. Initial wound encounter measurements are 1.2cm length x 1.4cm width x 0.2cm depth, with an area of 1.68 sq cm and a volume of 0.336 cubic cm. No tunneling has been noted. No sinus tract has been noted. No undermining has been noted. There is a moderate amount of serous drainage noted which has no odor. The patient reports a wound pain of level 0/10. The wound margin is attached. Wound bed has No epithelialization, No eschar, Yes slough, Yes bright red, firm granulation. The periwound skin texture is normal. The periwound skin moisture is normal. The periwound skin color is normal. The temperature of the periwound skin is WNL. Periwound skin does not exhibit signs or symptoms of infection. Local Pulse is Palpable. Neurological: Cranial nerves grossly intact with symmetric function normal by informal observation.. ASSESSMENT Active Problems ICD-10 (Encounter Diagnosis) I87.313 - Chronic venous hypertension (idiopathic) with ulcer of bilateral lower extremity (Encounter Diagnosis) L97.812 - Non-pressure chronic ulcer of other part of right lower leg with fat layer exposed (Encounter Diagnosis) L97.822 - Non-pressure chronic ulcer of other part of left lower leg with fat layer exposed PROCEDURES Wound #89 Wound #89 (Cellulitis) is located on the right, proximal, anterior leg. A selective debridement with a tota area debrided of 0.12 sq cm was performed by William Zavala MD. to remove devitalized tissue: exudate and slough. The following instrument(s) were used: curette. Pain control was achieved using 4% Lido. A time out was conducted prior to the start of the procedure. No bleeding occurred. The procedure was tolerated well with a pain level of 0 throughout and a pain level of 0 following the procedure. Post Debridement Measurements: 0.6cm length x 0.2cm width x 0.2cm depth; with an area of 0.12 sq cm and Wound #89 (Cellulitis) is located on the right, proximal, anterior leg. A Multilayer Compression procedure was performed by William Zavala MD. General Notes: Coban 2 layer wrap Wound #91 Wound #91 (Venous Ulcer) is located on the left, posterior leg. A skin/ subcutaneous tissue level surgical debridement with a total area debrided of 1.68 sq cm was performed by William Zavala MD. Pain control was achieved using 4% Lido. A time out was conducted prior to the start of the procedure. Post Debridement Measurements: 1.2cm length x 1.4cm width x 0.3cm depth; with an area of 1.68 sq cm and a volume of 0.504 cubic cm; Wound #91 (Venous Ulcer) is located on the left, posterior leg. A Multilayer Compression procedure was performed by William Zavala MD. General Notes: Coban 2 layer wrap PLAN Wound Orders: Wound #89 Right, Proximal, Anterior Leg Anesthetic Topical Xylocaine to wound bed. - In clinic. Cleanser Cleanse Wound: - Normal saline and gauze. May Shower. - Must use cast protector or plastic bag when showering. Topical Treatments Antibiotic/Antimicrobial Ointment/Cream. - Gentamicin ointment Dressings Primary dressing: - Calomseptine to leg. Compression/Edema Control Elevation of leg(s) above the level of the heart when sitting. Avoid prolonged standing in one place. Multi Layer Wrap: - Coban 2 wrap Bilat. Do not get leg(s) with compression wrap wet. If wraps are too tight call the wound care center or remove if you are unable to reach the center. Please remove wraps for numbness, tingling, pain in legs or color changes in toes and call the clinic the same day. If symptoms do not resolve after removing wraps please go to the ER for evaluation. Local pharmacies carry plastic cast protectors that may be used for protection while showering. Wound #91 Left, Posterior Leg Anesthetic Topical Xylocaine to wound bed. - In clinic. Cleanser Cleanse Wound: - Normal saline and gauze. May Shower. - Must use cast protector or plastic bag when showering. Topical Treatments Antibiotic/Antimicrobial Ointment/Cream. - Gentamicin ointment Dressings Primary dressing: - Calomseptine to leg. Additional Orders: Follow-Up Appointments Return Appointment: - - One week. Other information: If you develop fever, chills, increased pain, drainage, redness or swelling please call our office. If after hours, respond to the ER. Should you experience any significant changes in your wound(s) or have any questions regarding your home care instructions please contact the wound center @ [phone]. If after hours, contact your primary care physician or go to the hospital emergency room. Scribing Attestation I attest, as the nurse, that I scribed these orders for the physician. I've reviewed the clinician's documentation and agree with the evaluation and plan as written. In addition the patient's ulcers demonstrate evidence of non-viable devitalized tissue and they will continue to benefit from sharp debridement to help promote granulation and expedite healing. Also, we'll start compression therapy with a Coban compression wrap on the left lower leg today and continue the same on the right. Electronic Signature(s) Signed By: Date: William Zavala MD 01/11/2018 11:44:00 Entered By: William Zavala on 01/11/2018 11:37:14 Addendum at 02/08/2018 09:19:27 Wound #91 debridement should include subcutaneous and slough as tissue removed. Addendum Signed By: William Zavala on 02/08/2018 09:19:27
== END ==
PROVIDERS: Family Provider Internal Medicine; PCP Internal Medicine; Visit Provider Internal Medicine
DX: I87.313 Chronic venous hypertension (idiopathic) with ulcer of bilateral lower extremity (principal); L97.822 Non-pressure chronic ulcer of other part of left lower leg with fat layer exposed; L97.811 Non-pressure chronic ulcer of other part of right lower leg limited to breakdown of skin; L03.115 Cellulitis of right lower limb; Z48.817 Encounter for surgical aftercare following surgery on the skin and subcutaneous tissue
CPT/HCPCS: 11042; 97597

== ENCOUNTER → 2018-01-17 09:27 | Outpatient (CLI) | payer MEDICARE, OTHER, SELFPAY ==
--- NOTE | 2018-01-17 | OV.WND_ITS ---
Progress Note Details Patient Name: Tiffanie Gomez Patient Number: [id number] PatientPatientDate: 01/17/2018 Clinician: Oksana Lyman Clinician Cosigner: Kellee Lomeli Physician / Building Maintenance Mechanic: William Zavala SUBJECTIVE Chief Complaint This information was obtained from the patient Venous ulcers to bilateral lower extremities. Allergies Oxycodone (Reaction: severe mental change), Morphine (Reaction: mental change), Hydromorphone (Reaction: mental change), ampicillin (Severity: Severe, Reaction: Itchy rash), vancomycin (Severity: Severe, Reaction: Tachycardia, Chills, Hypertension, Veronika Syndrome), amoxicillin (Severity: Severe, Reaction: Rash, Flushing Nausea Vomiting.), clavulanic acid (Severity: Severe, Reaction: Rash, Flushing nausea vomiting), Codine (Severity: Moderate, Reaction: Hives Vomiting), fluconazole (Severity: Moderate, Reaction: Hives), nafcillin (Severity: Moderate, Reaction: rash), piperacillin (Severity: Moderate, Reaction: rash), fish oil HPI This information was obtained from the patient 01/17/18. Seen by Dr. Zavala. The patient does not report pain or other acute issues regarding the right leg venous ulcers since her last visit and she's tolerating compression therapy without difficulty. 01/10/18. Seen by Dr. Zavala. The patient does not report pain or other acute issues regarding the right leg venous ulcers since her last visit and she's tolerating compression therapy without difficulty. The nurse however reports a new venous ulcer over the left lower leg which has not been wrapped recently. 01/03/18. Seen by Dr. Zavala. The patient does not report pain or other acute issues regarding the right leg venous ulcers since her last visit and she continues on moxifloxacin for cellulitis of the left thigh as recommended. 12/27/17. Seen by Dr. Zavala. The patient reports improvement in terms of the right thigh redness despite not being able to start on moxifloxacin until today due to insurance prior authorization approval. Her wound culture grew coag negative Staph, group B Strep, Enterococcus, and Pseudomonas which together significantly limited her antibiotic options. She does not report fevers or feeling unwell however his entire leg is considerably swollen today. 12/20/17. Seen by Dr. Zavala. The patient reports increased redness and swelling over the right medial thigh and states she had sweats and a subjective fever a couple of days ago but feel this has no resolved. She does not report drainage associated with the bilateral lower leg venous ulcers and has tolerated the compression wraps that are treating severe chronic venous hypertension without difficulty. 12/13/17. Seen by Dr. Zavala. The patient does not report pain or other acute issues regarding the bilateral venous ulcers since her last visit and she states she's taking had Lasix as prescribed and tolerated compression wraps without difficulty. 12/06/17. Seen by Dr. Zavala. The patient does not report pain or other acute issues regarding the bilateral venous ulcers since her last visit however she states she's not been taking her Lasix as prescribed and the Coban compression wraps feel down over the weekend. 11/29/17. Seen by Dr. Zavala. The patient does not report pain or other acute issues regarding the bilateral venous ulcers and her right lower leg culture from the last visit has grown a resistant Proteus specie and MSSA for which she's taking levofloxacin and linezolid. 11/26/17. Seen by Dr. Zavala. The patient returns to clinic following discharge from the hospital where she lower leg venous ulcers and severe chronic venous hypertension. She does not report pain in the legs, fevers, nor significant drainage from the ulcers however she's not yet picked up her antibiotics that were prescribed upon discharge. 10/18/17. Seen by Dr. Zavala. The patient does not report pain or other acute issues regarding the bilateral venous ulcers and she's tolerating compression therapy that's treating bilateral chronic venous hypertension. 10/11/17. Seen by Dr. Zavala. The patient does not report pain or other acute issues regarding the bilateral venous ulcers and she's tolerating compression therapy that's treating bilateral chronic venous hypertension however she continues to cut the tops of the wraps due to itching and rubbing. 10/04/17. Seen by Elliot Hernandez PA-C. The patient reports stable drainage from her left lower leg venous ulcers. 09/27/17. Seen by Dr. Zavala. The patient reports significant itching associated with the left lower leg compression wrap and has again cut the top portion of the wrap. She's also not been taking her diuretic as prescribed the past few days and staff feel the bilateral lower leg edema has increased considerably since her last visit. Otherwise there's no reported increasing in drainage or pain associated with the bilateral lower leg venous ulcers. 09/20/17. Seen by Dr. Zavala. The patient has tolerated compression therapy that's treating severe bilateral lower leg chronic venous hypertension and associated venous ulcers and staff do not report significant drainage on the dressings. 09/13/17. Seen by Dr. Zavala. The patient has tolerated compression therapy that' s treating severe bilateral lower leg chronic venous hypertension and associated venous ulcers and staff do not report significant drainage on the dressings. 09/06/17. Seen by Dr. Zavala. The patient does not report pain associated with bilateral lower leg venous ulcers since her last visit and she tolerated compression therapy that treating severe bilateral chronic venous hypertension without difficulty. 08/30/17. Seen by Dr. Zavala. The patient does not report pain associated with bilateral lower leg venous ulcers since her last visit and she tolerated compression therapy that treating severe bilateral chronic venous hypertension without difficulty. 08/23/17. Seen by Dr. Zavala. The patient does not report increased drainage or pain associated with bilateral lower leg venous ulcers since her last visit. She reports that she arrived today without dressings over he ulcers however. Her wound culture from the last visit was unremarkable. 08/16/17. Seen by Dr. Zavala. The patient does not report increased drainage or pain associated with bilateral lower leg venous ulcers since her last visit. 08/09/17. Seen by Dr. Zavala. The patient does not report increased drainage or pain associated with bilateral lower leg venous ulcers since her last visit. 08/02/17. Seen by Dr. Zavala. The patient returns for clinic following a recent admission to the hospital for bilateral lower extremity cellulitis. She seen by her primary care provider earlier this week who increased her Lasix from 40 mg 80 mg daily. Despite this she reports significant leg swelling and monitor mental regarding whether she is taking her Lasix as prescribed. She also continues on dicloxacillin for the cellulitis. 07/05/17. Seen by Dr. Zavala. The patient does not report increased drainage or pain associated with bilateral lower leg venous ulcers since her last visit. She states that she is wearing and changing her compression stockings although the nurses note that they were dated at the last visit and do not appear to be changed since then. 06/28/17. Seen by Elliot Hernandez PA-C. The patient reports decreased drainage from her lower extremity ulcers. 06/21/17. Seen by Elliot Hernandez PA-C. The patient reports that part of her leg wraps fell down but the portion near her ankles and feet stayed in place. She does not report increased drainage from her lower extremity venous ulcers. 06/14/17. Seen by Elliot Hernandez PA-C. The patient reports no increase in drainage from her bilateral lower extremity ulcers. 06/07/17. Seen by Elliot Hernandez PA-C. The patient reports increased pain in her left foot and increased drainage from her left foot ulcer. 05/31/17. Seen by Dr. Zavala. The patient was recently discharged from the hospital following an admission for left lower leg and left foot cellulitis. She was treated with IV antibiotics and is now on oral levofloxacin and cefdinir. She was also heavily diuresed and has lost 16 pounds from her last visit. She does not report fevers, feeling unwell, nor adverse side effects of her antibiotics. 05/24/17. Seen by Elliot Hernandez PA-C. The patient reports that she has had a low grade fever 05/17/17. Seen by Elliot Hernandez PA-C. The patient reports decreased drainage from her right lower leg venous ulcers since her last evaluation. 05/10/17. Seen by Elliot Hernandez PA-C. The patient reports stable drainage from her right lower leg venous ulcers. When we noted a new ulcer, more proximal than the existing ones, she stated that this new ulcer has been continuously present for a few weeks without worsening or improving. Associated drainage from this new ulcer has been moderate with minimal, non-radiating pain noted. 05/03/17. Seen by Dr. Zavala. The patient does not report increased drainage associated with the chronic right lower leg venous ulcers since her last visit. 04/26/17. Seen by Dr. Zavala. The patient does not report increased drainage associated with the chronic right lower leg venous ulcers since her last visit and she is applying topical antibiotic to treat the MSSA positive wound culture as recommended. 04/19/17. Seen by Dr. Zavala. The patient does not report increased drainage associated with the chronic right lower leg venous ulcers since her last visit. 04/12/17. Seen by Dr. Zavala. The patient does not report pain or increased drainage associated with chronic right lower leg venous ulcers since her last visit. Recent wound culture grew MSSA plus group B streptococcus and Buttiauxella agrestis which is a gram-negative mi. She states she is taking her diuretic, applying topical gentamicin to the wound base, and wearing compression stockings to manage chronic venous hypertension as recommended. 04/05/17. Seen by Dr. Zavala. The patient does not report pain or increased drainage associated with chronic right lower leg venous ulcers since her last visit. 03/29/17. Seen by Dr. Zavala. The patient does not report pain or increased drainage associated with chronic right lower leg venous ulcers since her last visit. 03/22/17. Seen by Dr. Zavala. The patient does not report pain nor significant drainage associated with chronic right lower leg venous ulcer since her last visit. The staff report some new ulcers however over the right lower leg today. 03/15/17. Seen by Dr. Zavala. The patient does not report pain nor significant drainage associated with chronic right lower leg venous ulcer since her last visit and she's wearing her compression stocking as recommended that's treating right lower leg chronic venous hypertension. Her dressing has been in place since Sunday and the staff report some new periwound erythema and possible new areas of skin breakdown. 02/22/17. Seen by Dr. Zavala. The patient does not report pain nor significant drainage associated with chronic right lower leg venous ulcer since her last visit. 02/15/17. Seen by Dr. Zavala. The patient does not report pain nor significant drainage associated with chronic right lower leg venous ulcer since her last visit. 02/08/17. Seen by Elliot Hernandez PA-C. The patient reports she has been unable to change her dressings on her lower legs and has been unable to bathe. Her dressings have remained in place for >1 week. She is hoping to have home health come and help her with dressing changes. Of note, she does not leave the house, except for doctors appointments, and when she does leave it is with great difficulty. 01/11/17. Seen by Dr. Zavala. The patient does not report pain nor significant drainage associated with chronic right lower leg venous ulcer since her last visit. 01/04/17. Seen by Elliot Hernandez PA-C. The patient reports no increase in drainage from her lower extremity ulcers since her last evaluation. 12/28/16. Seen by Elliot Hernandez PA-C. The patient reports decreased drainage from her lower extremity ulcers. 12/21/16. Seen by Elliot Hernandez PA-C. The patient reports decreased drainage from her lower extremity ulcers since her last evaluation. 12/14/16. Seen by Elliot Hernandez PA-C. The patient reports decreased drainage from her lower extremity ulcers. 12/07/16. Seen by Dr. Zavala. The patient does not report significant drainage or pain associated with the chronic right lateral lower leg venous ulcer. The staff however report a new ulcer on the anterior right lower leg today. 11/30/16. Seen by Elliot Hernandez PA-C. The patient reports decreased drainage from her lower leg venous ulcers. 11/23/16. Seen by Dr. Zavala. The patient does not report significant drainage or pain associated with the chronic right lateral lower leg venous ulcer. The staff do report a new ulcer on the posterior left lower leg today. The patient is now being seen at the end of the day and her daughter is accompanying her due to last week's episode of flea infestation and the need for infectious control to be involved in her care plan. Adult Protective Services were also alerted over the past week however there is no feedback yet regarding their involvement. 11/16/16. Seen by Elliot Hernandez PA-C. The patient reports no increase in drainage from her right lower leg venous ulcers. Nursing reports that approximately 20-30 fleas jumped off of the patient's legs including from under her wound dressing, when it was removed. The patient denies having fleas. 11/09/16. Seen by Elliot Hernandez PA-C. The patient reports continued drainage from her right lower leg venous ulcers despite topical antimicrobial therapy. Her recent culture grees pseudomonas stutzeri with multiple sensitivities. 11/02/16. Seen by Dr. Zavala. The patient does not report increased pain associated with the chronic right lower leg venous ulcers however staff report increased colored drainage on her dressings. She does not report fevers or feeling unwell and is not currently on antibiotics. 10/24/16. Seen by Dr. Zavala. The patient does not report increased drainage or pain associated with the right lower leg venous ulcers since her last visit. 10/21/16. Seen by Elliot Hernandez PA-C. The patient's wound culture grew staph aureus. The patient reports stable drainage from her right lower leg venous ulcer. 10/12/16. Seen by Elliot Hernandez PA-C. The patient returns to us after a hospitalization and SNF stay for cellulitis of her right lower leg. Currently she has home health assisting her with her dressing changes for her right lower leg venous ulcer and they have recommended she present to us for more specialized care. 08/23/16. Seen by Dr. Zavala. The patient was unable to start her IV antibiotics that were prescribed at her visit last week due to financial limitations. She is prescribed cefepime at that time to treat the refractory and multidrug-resistant pseudomonas positive wound culture. She reports increased redness in the leg but no significant pain, fevers, or feeling unwell. 08/10/16. Seen by Dr. Zavala. The staff report significant drainage and malodor associated with the chronic right lower leg non-pressure ulcers and the patient continues on antibiotics for the recent Proteus and Enterococcus positive culture but there's a discrepancy on how many days she has left to take. She does not report pain in the leg, fevers, or feeling unwell and states she's changing the dressing twice daily. 07/26/16. Seen by Dr. Zavala. The patient continues on dual antibiotic therapy for the recent Proteus and Entercoccus positive wound cultures taken from the chronic right lower leg venous ulcers without reporting adverse side effects. She feels the larger posterior right lower leg ulcer continues to produce significant drainage but she does not report pain at the site. She states she's wearing her compression stocking and taking her diuretics as prescribed despite showing increased swelling in the leg today. She does not report fevers or feeling unwell in general. 07/20/16. Seen by Dr. Zavala. The patient does not report pain continues report drainage associated with the right chronic venous ulcers. She continues on dual antibiotic therapy without reporting adverse side effects for the recent Proteus and enterococcus positive wound cultures and does not report adverse side effects. She does not report fevers or feeling unwell in general. 07/13/16. Seen by Dr. Zavala. The patient does not report pain continues report drainage associated with the right chronic venous ulcers. She continues on dual antibiotic therapy for the recent Proteus and enterococcus positive wound cultures and does not report adverse side effects. 07/06/16. Seen by Dr. Zavala. The patient does not report pain or increased drainage associated with the chronic right lower leg venous ulcers nor right 3rd toe trauma wound. The staff however continue to report some blue-green drainage from the posterior ulcer. She states she is applying gentamicin ointment topically to the ulcers and is now off of oral antibiotics. She does not report fevers or feeling unwell. 06/29/16. Seen by Dr. Zavala. The patient continues applying topical gentamicin ointment for the Pseudomonas positive culture taken from the right lower leg venous ulcer. The staff continue to report a blue green drainage from the site however the patient does not report significant pain nor significant drainage or pain associated with the other right lower leg venous ulcers. 06/22/16. Seen by Dr. Zavala. The patient continues on antibiotics for the Pseudomonas positive culture taken from the right lower leg venous ulcer. The staff continue to report a blue green drainage from the site however the patient does not report significant pain nor significant drainage or pain associated with the other right lower leg venous ulcers. 06/15/16. Seen by Dr. Zavala. The patient continues on ciprofloxacin for the right lower leg ulcer infection which cultured Pseudomonas. She does not report adverse side effects and feels the drainage has decreased somewhat. The does not report pain at this nor the other lower leg venous ulcers and states she's wearing her compression stockings as recommended. 06/05/16. Seen by Elliot Hernandez PA-C. The patient presents today with 3 new ulcers on her right lower leg which began spontaneously. She has had stable drainage from her previous venous ulcers. 05/18/16. Seen by Dr. Zavala. The patient does not report drainage or pain associated with the bilateral lower leg venous ulcers since her last visit. Of note, the staff report blue/ green drainage on the dressing covering the right lower leg ulcer. 05/11/16. Seen by Dr. Zavala. The patient does not report drainage or pain associated with the bilateral lower leg venous ulcers since her last visit. She should have completed her levofloxacin however states she still has a few tablets left. Of note, she has a habit of not taking her antibiotics as prescribed. 05/04/16 Seen by Elliot Hernandez PA-C. The patient reports no drainage from her left leg venous ulcers since her last dressing change, though she reports a new area of drainage on the right lower anterior leg. 04/27/16. Seen by Dr. Zavala. The patient does not report drainage or pain associated with the bilateral lower leg venous ulcers since her last visit. She's now on levofloxacin and cefdinir for the recent polymicrobial wound culture and does not report adverse side effects, fevers, or feeling unwell in general 04/20/15. Seen by Dr. Zavala. The patient does not report drainage or pain associated with the bilateral lower leg venous ulcers since her last visit however staff report periwound erythema and drainage from most of the ulcers. Of note, she's to be wearing compression stockings to treat bilateral chronic venous hypertension but states she has not for the past day while they're being washed. 03/30/16. Seen by Dr. Zavala. The staff reports a number of new left lower leg venous ulcers. The patient reportedly has been wearing a larger compression stocking due to the recommended size being too tight. The patient states she's been taking her diuretic is prescribed and does not report pain or drainage associated with the bilateral lower leg venous ulcers. She is also on doxycycline now for the staph cultured from her right leg ulcer last visit. 03/23/16. Seen by Dr. Zavala. The staff report a new anterior right lower leg ulcer today however the patient is unaware of this issue. She does not report pain at the site nor at the site of the more lateral/posterior chronic non-pressure ulcer. She states she's wearing her compression stockings however staff note that they appear to be quite dirty. 03/02/16. Seen by Dr. Zavala. The patient does not report pain or significant drainage associated with the chronic right lower leg venous ulcer over the past week. She states that she is compliant in terms of taking her diuretic and wearing compression stockings although she states she did not take her diuretic prior to her appointment today. 02/24/16. Seen by Dr. Zavala. The patient does not report pain or significant drainage associated with the chronic right lower leg venous ulcer over the past week. 02/10/16. Seen by Dr. Zavala. The patient does not report pain or significant drainage associated with the chronic right lower leg venous ulcer and she states she's wearing her compression stocking and taking her diuretic as recommended to address the severe chronic venous hypertension in both leg. She states she's still taking Bactrim, and has been taking it as scheduled, despite the fact this should have run out last week. 02/03/16. Seen by Dr. Zavala. The patient does not report pain or significant drainage associated with the chronic right lower leg venous ulcer and she states she's wearing her compression stocking and taking her diuretic as recommended to address the severe chronic venous hypertension in both legs. She also continues on Bactrim for the recent MRSA positive wound culture and does not report adverse side effects. 01/27/16. Seen by Dr. Zavala. The patient does not report pain or significant drainage associated with the chronic right lower leg venous ulcer and she states she's wearing her compression stocking and taking her diuretic as recommended to address the severe chronic venous hypertension in both legs. She also continues on Bactrim for the recent MRSA and Enterobacter positive wound culture without reporting adverse side effects. 01/20/16. Seen by Dr. Zavala. The patient does not report pain or significant drainage associated with the chronic right lower leg venous ulcer and she states she's wearing her compression stocking and taking her diuretic as recommended to address the severe chronic venous hypertension in both legs. 01/13/16. Seen by Dr. Zavala. The patient does not report pain or significant drainage associated with the chronic right lower leg venous ulcer and she states she's wearing her compression stocking and taking her diuretic as recommended to address the severe chronic venous hypertension in both legs. She does not report pain or recurrence of cellulitis in the left lower leg that was recently treated during a hospital admission. 01/06/16. Seen by Dr. Zavala. [facility] admission for severe left lower leg cellulitis. She feels this has resolved and she does not report significant drainage associated with remaining chronic right lower leg venous ulcer. She was treated with IV antibiotics for the cellulitis and has been on her diuretic as prescribed to address the significant bilateral chronic venous hypertension. 12/16/15. Seen by Dr. Zavala. The patient presents with her daughter today who's very concerned her mother has been having 'flu-like' symptoms and feeling quite unwell the past couple of days. The patient reports increased redness and swelling in the left lower leg along with a subjective fever. The patient does not report a cough or symptoms unrelated to her left lower leg at this time. 12/09/15. Seen by Dr. Zavala. The patient presents with a few new venous ulcers over the right lower leg. She states she's not wearing her compression stocking because she was advised as such. She's been placing a Xeroform dressing over the ulcers although we recommended Exudry. She also states she did not take her diuretic today but has been taking it as prescribed otherwise. She does not report pain associated with the right lower leg venous ulcers nor fevers or feeling unwell. 12/02/15. Seen by Dr. Zavala. The patient does not report pain or increase drainage associated with her chronic right lower leg venous ulcers over the past week. 11/11/15. Seen by Dr. Zavala. The patient states she's wearing her compression stockings and taking her diuretic as prescribed. She does not report pain or drainage associated with the chronic bilateral lower leg venous ulcers. 11/04/15. Seen by Dr. Zavala. The patient does not report significant drainage or pain associated with the bilateral venous ulcers over the past week. She's taking her diuretic as prescribed and wearing compression stockings as recommended. 10/28/15. Seen by Dr. Zavala. The patient does not report pain or significant drainage associated with the right lower leg venous ulcer in the past week. She states she's wearing her compression stockings as recommended. She's also been taking her antibiotic is prescribed to treat the right lower leg wound infection. 10/21/[address] Zavala. The patient does not report pain or significant drainage associated with the bilateral venous ulcers and states she's wearing her compression stockings and taking her diuretic as directed. Her wound culture from the last visit grew Enterobacter and Proteus and she's not current taking oral antibiotics. 10/14/[address] Zavala. The patient feels her bilateral leg swelling is decreasing and she states she remain compliant with her diuretic therapy and wearing of compression stockings to treat chronic venous hypertension and associated multiple bilateral venous ulcers. She's applying gentamicin ointment to the ulcers to treat the recent Proteus and Enterobacter positive wound culture and she does not report significant pain or drainage associated with any of the ulcers. 10/07/[address] Zavala. The patient reports continued drainage associated with the bilateral lower leg venous ulcers. She also reports minimal pain associated with the right anterior lower leg ulcer. She's not wearing her compression stockings daily as recommended and skips a dose of Lasix intermittently. 09/30/[address] Zavala. The patient reports minimal pain and drainage associated with the chronic right and left lower leg venous ulcers over the past week. 09/23/15 Seen by Elliot Hernandez PA-C. The patient reports stable drainage from her lower leg ulcers. 09/16/[address] Zavala. The patient continues to report swelling and erythema of the right lower leg and some mild discomfort associated with the distal venous ulcer. She's wearing compression stockings as recommended to treat the chronic venous hypertension and she's completed a course of cefdinir within the last week for a polymicrobial wound culture and she does no report adverse side effects. She does not report fever or feeling unwell in general otherwise. 09/09/[address] Zavala. The patient states her right lower leg pain is improving and she continues on cefdinir for the recent Staph and Proteus positive wound culture. She also states she's wearing he compression stockings as recommended. 09/02/[address] Zavala. The patient reports persistent swelling and redness of the right lower leg in the periwound areas and states she continues to take her antibiotics although she should have completed her course after her last visit. Her recent wound culture grew Proteus and MSSA. She does not report significant drainage from the bilateral lower leg venous ulcers and is wearing her compression stockings as recommended. 08/26/[address] Zavala. The patient does not report significant pain or drainage associated with her bilateral lower leg venous ulcers and she's now on cefdinir for a Staph and Proteus positive wound culture taken at the last visit. She feels her leg swelling and redness have improved and she's started taking her diuretic again as recommended. She's not yet wearing her compression stockings however. 08/19/[address] Zavala. The patient returns to clinic reporting new ulcers over the bilateral lower legs She reports increased swelling and redness of the right lower leg starting about two weeks ago but no fever or associated pain. She also admits to not taking her Lasix as scheduled due to urinary incontinence issues and has been unable to apply her compression stockings due to the increased swelling. 05/27/[address] Zavala. The patient does not report significant drainage from her bilateral lower leg venous ulcers and she's wearing compression stockings and taking Lasix as recommended. 05/13/[address] Zavala. The patient's weight has increased by 7 lbs since her last visit and the staff report new venous ulcers over the lower legs. The patient states she missed her lasix dosage the past two days as well but has been wearing her compression stockings daily. 04/22/[address] Zavala. The patient does not report any new leg ulcers nor significant drainage or pain from the previously documented bilateral lower leg venous ulcers. 04/15/[address] Zavala. The staff report a new left posterior left lower leg ulcer however the patient does not know how this may have occurred and states it is not painful. In fact she does not report significant drainage or pain associated with any of her bilateral lower leg venous ulcers. 04/01/[address] Zavala. The patient reports a new right anterior lower leg ulcer that she feels occurred as an abrasion from the Tetragrip compression stocking. She remains compliant with compression therapy to treat her chronic venous hypertension and bilateral lower leg venous ulcers and does not report significant pain or drainage from any. 03/18/[address] Zavala. The patient does not report any new ulcers nor significant drainage or pain associated with the chronic bilateral lower leg venous ulcers. 03/10/[address] Zavala. The patient reports a new ulcer on the right lower leg but does not report trauma to the area. She states she's wearing her compression stockings as recommended. She does not report pain or significant drainage from the bilateral lower leg chronic venous ulcers and states she's compliant with her diuretic therapy which has been treating her leg edema. 03/04/[address] Zavala. The patient reports new ulcers over both lower legs but does not recall when in the past week they occurred nor any inciting events. She continues to compression stockings as recommended for chronic venous hypertension and does not report significant pain or drainage associated with any of the venous ulcers. 02/18/[address] Zavala. The patient reports a new ulcer over the anterior right lower leg the was first noticed yesterday when taking off her compression stocking. It started as a blister and she states it's not painful. She also states she's taking her diuretic as prescribed. 01/28/[address] Zavala. The patient does not report any problems regarding her right lower leg venous ulcer and she states she's wearing her compression stockings and taking her diuretic as prescribed. 01/14/[address] Zavala. The patient does not report significant drainage or pain associated with the bilateral lower leg venous ulcers. She states she's been compliant with her diuretic therapy and compression stockings and her weight is unchanged from last week. 01/07/[address] Zavala. The patient does not report drainage or pain associated with her bilateral lower leg venous ulcers and she was able to wear her compression stockings as recommended. She also reports being compliant with her diuretic therapy. 12/31/[address] Zavala. The patient was recently discharged from the hospital following treatment for left leg cellulitis. She feels the swelling and erythema are much improved and she's completed her course of antibiotics. She has recurrence of venous ulcers over both lower legs and reports moderate drainage but no pain. She's also reports being compliant with her diuretic therapy but has not been wearing compression stockings as we've recommended repeatedly in the past. 09/18/[address] Zavala. The patient has a fever of 101.9 today and complains only of some shortness of breath. She does not report increased swelling, pain, or drainage associated with her bilateral lower leg venous ulcers and she's currently not on systemic antibiotics. 09/10/[address] Zavala. The patient states she started taking her lasix as prescribed and feels her leg swelling is decreasing. She does not report increased drainage from the bilateral lower extremity venous ulcers and is using only topical gentamicin ointment. She states she's wearing her compression stockings during the day as recommended. She's also drinking 1-2 Ensure protein drinks daily to address her protein calorie malnutrition. 09/03/[address] Zavala. The patient does not report fever or chills but admits to being noncompliant with her diuretic therapy. Her weight is up 13 lbs in the past two weeks. She also reports a rash after starting her ampicllin and stopped using it on Sunday. She also states she's drinking one Ensure daily to address her protein calorie malnutrition. 08/27/[address] Zavala. The patient has been wearing her Tetragrips to the level of the ankles as recommended. She's taking ampicillin for an Enterococcus positive wound culture reported on 08/21/14. She does not report pain or increased drainage from the venous ulcers. 08/20/[address] Zavala. The patient states she's not comfortable wearing the compression wraps and they tend to slip down her legs. She does not report pain or drainage from the bilateral lower leg venous ulcer sites and states she's much prefer using her compression stockings instead of wraps. She also continues on doxycycline and does not report adverse side effects. 08/11/14 Seen by Elliot Hernandez PA-C. The patient reports that her wraps slid down her legs again and she finds them uncomfortable and difficult to comply with. She was able to find her old Juxtalite compression stocking for her left leg only and believes her other one is lost. She also reports that she has previously used the same stocking, on both legs by alternating the application of the stockings. 07/30/14 The patient tolerated the compression wraps without difficulty and they were able to stay in place until her appointment today. She continues on doxycycline and states she has no pain associated with the leg ulcers. 07/28/14 The patient tolerated the compression wraps without difficulty and feels her bilateral lower leg ulcers are much improved. She does not report pain or increased drainage and continues on doxycycline. 07/23/14 The patient feels her leg swelling is increasing somewhat and states she wears her compression stockings most days. She does not report increase pain or drainage associated with her bilateral lower leg ulcers and she continues on doxycycline for cellulitis in the lower legs. Of note, her prealbumin was 13.7 in early June and she's was advised to drink and Ensure daily at the time. In regards to her weight it's been fluctuating recently which probably has more to do with water retention than nutrition. 07/16/14 The patient feels the drainage from her leg ulcers has decreased considerably since her last visit and she's remains compliant with her antibiotic therapy along with wearing her compression stockings as recommended. 07/09/14 The patient reports decreased pain and drainage from her venous leg ulcers. She has been compliant with her doxycycline and tetra recreation coordinator compression. Her diuretics have not been changed. 07/02/14 The patient has two new ulcers on her lower legs today and is unclear as to whether she's been wearing compression stockings at home. Of note, her compression wraps have not stayed in place in the past due to the significant narrowing of her legs below the calf muscles. She also states she's on a diuretic although I do not see one on her recent discharge medication list. She' s had a 10 lb weight gain over the past 2 weeks. 06/26/14 The patient returns to the clinic with new lower leg wounds which she states were first noticed a couple of days ago but she does not recall injury to the sites. She states she' s been wearing her compression stockings as recommended. Of note, her prealbumin on 06/15/14 was 13.7. 06/17/14 The patient feels her leg swelling and ulcers are much improved and does not report increased drainage or pain. 06/10/14 The patient does not report any new issues regarding her leg ulcers however she does have a number of new wounds on the lower legs including a pressure ulcer on the left heal. She's also off of antibiotics now with no reported fever or increase in drainage. The dressings on the left leg were noted to be dried and adherent to the underlying ulcers. 06/03/14 The patient was recently discharged to [facility] from [facility] following treatment for severe left leg cellulitis an bilateral venous ulcers. She as found to have considerable fecal material over both lower legs and her wound culture grew on streptococcus. She continues on IV antibiotics and feels the leg pain is much improved. ____ Patient admitted to hospital 2 weeks ago for cellulitis in her right leg. Over ten excoriated areas on right leg, and very swollen. 08/15/12 everything went ok with the wraps. 08/19/12 Dressing came off last night. Tubigrip on 08/27/12 Arrives without tubigrip on legs. States has been wearing but not this am. Has scattered superficial ulcers over lower right leg. States been using dry skin cream. Had dressings from last , [address] mid tibia 09/03 Patient arrived to clinic with wrap intact on right leg and medigrip on left leg. States she is having no pain and that legs seem to be doing fine. 03/07/13- Patient is being seen by us today because she had cellulitis in her left leg, was admitted into the hospital on 02/20/13 and discharged on 02/28/13. Is now residing at [facility] in [facility]. Her leg has cleared up, scattered areas of erythema and some excoriations are present. Edema measurements are similar to patient's last visit. 03/28/13 Pt states she has been wearing compression stockings at home but isn't wearing them today. No new concerns or complaints. 05/02/13 has been applying cream qOday and tetrigrip stockings. now has 4 areas of wounds to right lower leg. has been taking antibiotic as prescribed 05/14/13 Dressing being changed every other day. No problems or concerns. Wearing tetragrip on right leg but was cutting circulation off in left leg so patient was is not wearing it anymore 05/21/13 Pt took dressings off this am but did not replace with a fresh dressing. PT has tetra recreation coordinator to right leg only.05/28/13 Pt states she still has a rash on her abdomen that bleeds a little. 06/04/13 Dressing being changed daily. No problems or concerns 06/11/13 Pt states dressing changes going ok at home.Pt states drainage from abdominal wound has decreased and she thinks the rash around belly button has cleared. 06/18/13 Pt states she thinks things are going well. Umbillicus dressing not preformed as instructed and two pieces of foam found in umbillicus. Increase in drainage and pt states it was changed yesterday. Increased odor. 06/23/13- No new problems or concernss. Changing abdomen dressing about every other day, states no problems with dressing changes. Past Medical History This information was obtained from the patient Patient has a medical history of: Peripheral neuropathy Necrotizing fasciitis Childhood rheumatic fever Chronic venous hypertension (with ulcer and inflammation; bilateral lower legs; Enterococcus and Diptheroids positive culture 08/21/14) Protein calorie malnutrition - 06/15/2014 Morbid Obesity Lymphedema Complaints and Symptoms This information was obtained from the patient Patient complains of: General Notes: I have reviewed and concur with the Review of Systems and Past Family Social History documents completed by the clinician, I have reviewed and concur with the Wound Assessment document completed by the clinician Cardiovascular (Central/Peripheral): Lower extremity (leg) swelling Integumentary (Hair/Skin/Nails): Open Sore Musculoskeletal: Assistive Devices Prior Wound History: Drainage, Erythema, Pain Patient denies complaints or symptoms related to: Cardiovascular (Central/Peripheral): Lower extremity (leg) resting pain Constitutional Symptoms (General Health): Chills, Fever, Marked Weight Change Ear/Nose/Mouth/Throat: Hearing Loss / Aid Gastrointestinal (GI): Nausea / Vomiting, Stomach/abdominal pain Hematologic/Lymphatic: Bleeding / Clotting Disorders, Bleeding Tendency Neurological: Loss of Protective Sensation Prior Wound History: Bleeding, Malodor Psychiatric: Memory Loss Respiratory: Oxygen Use, Shortness of Breath Additional Information Does patient have a history of Cancer? Yes? Complete all questions.: No OBJECTIVE Constitutional BP elevated; Afebrile; Alert and in no distress. Well developed. Alert. Clean appearing.. Height/Length: 65 in (165.1 cm), Weight: 287.3 lbs (130.59 kgs), BMI: 47.8, Temperature: 97.8 ? F (36.56 ?C), Pulse: 70 bpm, Respiratory Rate: 18 breaths/min, Blood Pressure: 139/82 mmHg, Pulse Oximetry: 99 %. Respiratory: No respiratory distress. Even respirations and without use of accessory muscles.. Cardiovascular: 2+ bilateral lower leg edema. Gastrointestinal (GI): Obese. Nondistended.. Integumentary (Hair, Skin) Hyperkeratotic changes noted over the bilateral lower legs. Refer to appropriate clinician wound documentation for this visit; left lower leg ulcer extends to subcut with base partially covered with pink granulation, remainder fibrin and slough. Wound #89 Right, Proximal, Anterior Leg is an acute Partial Thickness Cellulitis and has received an 0cm width with no measurable depth, with an area of 0 sq cm . No tunneling has been noted. No sinus tract has been noted. No undermining has been noted. There was no drainage noted. The patient reports a wound pain of level 0/10. Wound bed has No epithelialization, No eschar, No slough, No granulation. The periwound skin moisture is normal. The periwound skin exhibited: Edema, Hemosiderosis. The periwound skin did not exhibit: Erythema. The temperature of the periwound skin is Warm. Periwound skin does not exhibit signs or symptoms of infection. Local Pulse is Palpable. Wound #91 Left, Posterior Leg is a chronic Partial Thickness Venous Ulcer and has received a status of Not Healed. Subsequent wound encounter measurements are 0.8cm length x 1cm width x 0.1cm depth, with an area of 0.8 sq cm and a volume of 0.08 cubic cm. No tunneling has been noted. No sinus tract has been noted. No undermining has been noted. There is a moderate amount of serous drainage noted which has no odor. The patient reports a wound pain of level 0/10. The wound margin is attached. Wound bed has No epithelialization, No eschar, Yes slough, Yes bright red, firm granulation. The periwound skin texture is normal. The periwound skin moisture is normal. The periwound skin color is normal. The temperature of the periwound skin is WNL. Periwound skin does not exhibit signs or symptoms of infection. Local Pulse is Palpable. ASSESSMENT Active Problems ICD-10 (Encounter Diagnosis) I87.313 - Chronic venous hypertension (idiopathic) with ulcer of bilateral lower extremity (Encounter Diagnosis) L97.822 - Non-pressure chronic ulcer of other part of left lower leg with fat layer exposed PROCEDURES Wound #91 Wound #91 (Venous Ulcer) is located on the left, posterior leg. A skin/ subcutaneous tissue level surgical debridement with a total area debrided of 0.8 sq cm was performed by William Zavala MD. Subcutaneous was removed along with devitalized tissue: slough. The following instrument(s) were used curette. Pain control was achieved using 4% Lido. A time out was conducted prior to the start of the procedure. A minimal amount of bleeding was controlled with pressure. The procedure was tolerated well with a pain level of 0 throughout and a pain level of 0 following the procedure. Post Debridement Measurements: 0.8cm length x 1cm width x 0.2cm depth; with an area of 0.8 sq cm and a volume of 0.16 cubic cm; Additional Information Muscle fascia or bone removed and sent to pathology?: No PLAN Wound Orders: Wound #91 Left, Posterior Leg Cleanser Cleanse Wound: - Normal saline, in clinic Dressings Pack wound: - Endoform Primary dressing: - Opti foam Change Dressing: - Leave in place. Compression/Edema Control Elevation of leg(s) above the level of the heart when sitting. Avoid prolonged standing in one place. Multi Layer Wrap: - Coban 2 layer wrap. Single Layer Compression Hose - Wear Tubi recreation coordinator size F to Right Leg until you get home and them put on your Juxalite. Wear Juxalite to Right leg every day. On in am and off at night. Follow-Up Appointments Return Appointment: - - Next week Scribing Attestation I attest, as the nurse, that I scribed these orders for the physician. I've reviewed the clinician's documentation and agree with the evaluation and plan as written. In addition, the patient's ulcer demonstrates evidence of non-viable devitalized tissue which will continue to benefit from sharp debridement to help promote granulation and expedite healing. Electronic Signature(s) Signed By: Date: William Zavala MD 01/18/2018 09:38:07 Entered By: William Zavala on 01/18/2018 09:33:07
== END ==
PROVIDERS: Family Provider Internal Medicine; PCP Internal Medicine; Visit Provider Internal Medicine
DX: I87.312 Chronic venous hypertension (idiopathic) with ulcer of left lower extremity (principal); L97.822 Non-pressure chronic ulcer of other part of left lower leg with fat layer exposed
CPT/HCPCS: 11042

== ENCOUNTER → 2018-01-24 10:11 | Outpatient (CLI) | payer MEDICARE, OTHER, SELFPAY | PROVIDERS: Family Provider Internal Medicine; PCP Internal Medicine; Visit Provider Family Medicine | DX: I87.312 Chronic venous hypertension (idiopathic) with ulcer of left lower extremity (principal); L97.822 Non-pressure chronic ulcer of other part of left lower leg with fat layer exposed; I89.0 Lymphedema, not elsewhere classified | CPT/HCPCS: 97597; 99213 ==

== ENCOUNTER → 2018-01-31 13:06 | Outpatient (CLI) | payer MEDICARE, OTHER, SELFPAY | PROVIDERS: Family Provider Internal Medicine; PCP Internal Medicine; Visit Provider Family Medicine | DX: I89.0 Lymphedema, not elsewhere classified (principal); L89.892 Pressure ulcer of other site, stage 2; I83.022 Varicose veins of left lower extremity with ulcer of calf; M65.052 Abscess of tendon sheath, left thigh | CPT/HCPCS: 97597; 97598; 99213 ==

== ENCOUNTER → 2018-02-07 09:56 | Outpatient (CLI) | payer MEDICARE, OTHER, SELFPAY | PROVIDERS: Family Provider Internal Medicine; PCP Internal Medicine; Visit Provider Family Medicine | DX: L89.892 Pressure ulcer of other site, stage 2 (principal); M65.052 Abscess of tendon sheath, left thigh; I83.10 Varicose veins of unspecified lower extremity with inflammation | CPT/HCPCS: 87070; 87075; 87077; 87147; 87186; 87205; 99213 ==

== ENCOUNTER → 2018-02-11 13:10 | Outpatient (CLI) | payer MEDICARE, OTHER, SELFPAY | PROVIDERS: Family Provider Internal Medicine; PCP Internal Medicine; Visit Provider Family Medicine | DX: L89.892 Pressure ulcer of other site, stage 2 (principal); B96.5 Pseudomonas (aeruginosa) (mallei) (pseudomallei) as the cause of diseases classified elsewhere; I89.0 Lymphedema, not elsewhere classified; M79.672 Pain in left foot | CPT/HCPCS: 97597; 97598; 99213 ==

== ENCOUNTER → 2018-02-14 13:29 | Outpatient (CLI) | payer MEDICARE, OTHER, SELFPAY | PROVIDERS: Family Provider Internal Medicine; PCP Internal Medicine; Visit Provider Family Medicine | DX: L89.892 Pressure ulcer of other site, stage 2 (principal); B96.5 Pseudomonas (aeruginosa) (mallei) (pseudomallei) as the cause of diseases classified elsewhere; I89.0 Lymphedema, not elsewhere classified | CPT/HCPCS: 97597 ==

== ENCOUNTER → 2018-02-21 10:07 | Outpatient (CLI) | payer MEDICARE, OTHER, SELFPAY | PROVIDERS: Family Provider Internal Medicine; PCP Internal Medicine; Visit Provider Family Medicine | DX: L89.892 Pressure ulcer of other site, stage 2 (principal); I89.0 Lymphedema, not elsewhere classified; L08.9 Local infection of the skin and subcutaneous tissue, unspecified; I87.2 Venous insufficiency (chronic) (peripheral) | CPT/HCPCS: 97597; 97598; 99213 ==

== ENCOUNTER → 2018-02-28 09:48 | Outpatient (CLI) | payer MEDICARE, OTHER, SELFPAY | PROVIDERS: Family Provider Internal Medicine; PCP Internal Medicine; Visit Provider Family Medicine | DX: L89.892 Pressure ulcer of other site, stage 2 (principal); L03.116 Cellulitis of left lower limb | CPT/HCPCS: 97597; 97598 ==

== ENCOUNTER → 2018-03-06 12:42 | Outpatient (CLI) | payer MEDICARE, OTHER, SELFPAY ==
--- NOTE | 2018-03-06 | DI.US.S_ITS ---
PROCEDURE: US VENOUS INSUFFICIENCY BILAT INDICATIONS: CHRONIC ULCER TECHNIQUE: Real time scanning was performed of the lower extremity venous system, with imaging documentation, as well as Color and pulse Doppler interrogation. COMPARISON: None. FINDINGS: RIGHT LOWER EXTREMITY: The deep veins are normally compressible, and free of intraluminal thrombus. Color and pulse Doppler demonstrate normal intravascular flow. There is normal augmentation with distal compression maneuver. Greater saphenous vein (GSV): Reflux present with duration of reflux extending beyond 0.5 seconds. See technical diagram for specific measurements and course of the greater saphenous vein. Anterior accessory GSV (AAGSV): Reflux present with duration of reflux extending beyond 0.5 seconds. Small saphenous vein (SSV): Not imaged. Tracer Powder Blender veins: 8mm lower leg technical sales representative. LEFT LOWER EXTREMITY: The deep veins are normally compressible, and free of intraluminal thrombus. Color and pulse Doppler demonstrate normal intravascular flow. There is normal augmentation with distal compression maneuver. Greater saphenous vein (GSV): Reflux present with duration of reflux extending beyond 0.5 seconds. See technical diagram for specific measurements and course of the greater saphenous vein. Anterior accessory GSV (AAGSV): No reflux. Small saphenous vein (SSV): Not evaluated. Tracer Powder Blender veins: 3 mm lower leg technical sales representative. IMPRESSION: 1. Reflux involving the right greater saphenous vein at the level of the midcalf. 2. Reflux involving the left greater saphenous vein within the proximal and mid thigh as well as the proximal calf. 3. Small bilateral perforators. Dictated by: Chuck Milian [facility] Interpreted: Herbie Richard MD on 03/06/2018 at 14:09 Approved by: Herbie Richard M.D. on 03/06/2018 at 15:58
== END ==
PROVIDERS: Family Provider Internal Medicine; PCP Internal Medicine; Visit Provider Family Medicine
DX: I87.313 Chronic venous hypertension (idiopathic) with ulcer of bilateral lower extremity (principal); L97.822 Non-pressure chronic ulcer of other part of left lower leg with fat layer exposed
CPT/HCPCS: 93970

== ENCOUNTER → 2018-03-14 13:06 | Outpatient (CLI) | payer MEDICARE, OTHER, SELFPAY | PROVIDERS: Family Provider Internal Medicine; PCP Internal Medicine; Visit Provider Family Medicine | DX: S81.802A Unspecified open wound, left lower leg, initial encounter (principal); L89.892 Pressure ulcer of other site, stage 2; I89.0 Lymphedema, not elsewhere classified; L03.116 Cellulitis of left lower limb; I87.312 Chronic venous hypertension (idiopathic) with ulcer of left lower extremity; L97.822 Non-pressure chronic ulcer of other part of left lower leg with fat layer exposed | CPT/HCPCS: 11042; 87070; 87075; 87077; 87147; 87186; 87205; 99212; 99214 ==

== ENCOUNTER → 2018-03-21 13:38 | Outpatient (CLI) | payer MEDICARE, OTHER, SELFPAY | PROVIDERS: Family Provider Internal Medicine; PCP Internal Medicine; Visit Provider Family Medicine | DX: L89.892 Pressure ulcer of other site, stage 2 (principal); I87.312 Chronic venous hypertension (idiopathic) with ulcer of left lower extremity; L97.822 Non-pressure chronic ulcer of other part of left lower leg with fat layer exposed; L03.116 Cellulitis of left lower limb; I89.0 Lymphedema, not elsewhere classified; R46.0 Very low level of personal hygiene | CPT/HCPCS: 99214 ==

== ENCOUNTER → 2018-03-28 10:46 | Outpatient (CLI) | payer MEDICARE, OTHER, SELFPAY | PROVIDERS: Family Provider Internal Medicine; PCP Internal Medicine; Visit Provider Family Medicine | DX: I89.0 Lymphedema, not elsewhere classified (principal); I87.312 Chronic venous hypertension (idiopathic) with ulcer of left lower extremity; L97.221 Non-pressure chronic ulcer of left calf limited to breakdown of skin; L03.116 Cellulitis of left lower limb; L89.92 Pressure ulcer of unspecified site, stage 2; R46.0 Very low level of personal hygiene | CPT/HCPCS: 11042; 97597 ==

== ENCOUNTER 2018-03-28 14:11 | Outpatient (CLI) | payer MEDICARE, OTHER, SELFPAY ==
--- NOTE | 2018-03-28 | DI.MG.S_ITS ---
BILATERAL DIGITAL SCREENING MAMMOGRAM 3D/2D WITH CAD: 03/28/2018 CLINICAL: Routine screening. Baseline exam. Comparison is made to exam dated: 06/28/2004 [facility]. The tissue of both breasts is predominantly fatty. Current study was also evaluated with a Computer Aided Detection (CAD) system. There are benign calcifications in both breasts. There is a mole marker on the right breast. There is a 0.5 cm oval circumscribed mass at the 12 o'clock retroareolar depth. No other significant masses, calcifications, or other findings are seen in either breast. IMPRESSION: INCOMPLETE: NEEDS ADDITIONAL IMAGING EVALUATION 0.5 cm oval circumscribed mass at the 12 o'clock retroareolar depth. A diagnostic mammogram with possible ultrasound is recommended. This exam was interpreted at Station ID: [id number]. NOTE: For mammograms, a report in lay terms will be sent to the patient. Approximately 15% of breast malignancies will not be visualized mammographically. In the management of a palpable breast mass, a negative mammogram must not discourage biopsy of a clinically suspicious lesion. Electronically Signed By: Joe Nicole M.D. ecl/:04/02/2018 08:34:35 letter sent: Additional Imaging Needed ACR BI-RADS Category 0: Incomplete [id number]
--- NOTE | 2018-03-28 | DI.RAD.S_ITS ---
This blank DEXA report has been sent in error by the PACS system. The correct and complete report will be forthcoming in 1-2 days. Thank you for your patience and understanding. Dictated by: Herbie Richard M.D. on 03/28/2018 at 15:47 Approved by: Herbie Richard M.D. on 03/28/2018 at 15:49
== END 2018-03-28 14:17 | disposition home or self-care (01) ==
LOC: RAD 14:12
PROVIDERS: PCP Internal Medicine; Visit Provider Internal Medicine
DX: Z12.31 Encounter for screening mammogram for malignant neoplasm of breast (principal); M81.0 Age-related osteoporosis without current pathological fracture; Z78.0 Asymptomatic menopausal state; I89.0 Lymphedema, not elsewhere classified; I87.312 Chronic venous hypertension (idiopathic) with ulcer of left lower extremity; L97.221 Non-pressure chronic ulcer of left calf limited to breakdown of skin; L03.116 Cellulitis of left lower limb; L89.92 Pressure ulcer of unspecified site, stage 2; R46.0 Very low level of personal hygiene
CPT/HCPCS: 11042; 77063; 77067; 77080; 97597

== ENCOUNTER → 2018-04-11 14:48 | Outpatient (CLI) | payer MEDICARE, OTHER, SELFPAY | PROVIDERS: PCP Internal Medicine; Visit Provider Family Medicine | DX: I89.0 Lymphedema, not elsewhere classified (principal); I87.312 Chronic venous hypertension (idiopathic) with ulcer of left lower extremity; L97.221 Non-pressure chronic ulcer of left calf limited to breakdown of skin; L89.92 Pressure ulcer of unspecified site, stage 2; L03.116 Cellulitis of left lower limb; R46.0 Very low level of personal hygiene | CPT/HCPCS: 11042; 87070; 87075; 87077; 87186; 87205 ==

== ENCOUNTER → 2018-04-18 14:43 | Outpatient (CLI) | payer MEDICARE, OTHER, SELFPAY | PROVIDERS: PCP Internal Medicine; Visit Provider Family Medicine | DX: I87.312 Chronic venous hypertension (idiopathic) with ulcer of left lower extremity (principal); L97.221 Non-pressure chronic ulcer of left calf limited to breakdown of skin; L03.116 Cellulitis of left lower limb; I89.0 Lymphedema, not elsewhere classified; R46.0 Very low level of personal hygiene; M79.605 Pain in left leg | CPT/HCPCS: 99213 ==

== ENCOUNTER → 2018-04-25 11:31 | Outpatient (CLI) | payer MEDICARE, OTHER, SELFPAY | PROVIDERS: PCP Internal Medicine; Visit Provider Family Medicine | DX: I87.312 Chronic venous hypertension (idiopathic) with ulcer of left lower extremity (principal); L97.221 Non-pressure chronic ulcer of left calf limited to breakdown of skin; I89.0 Lymphedema, not elsewhere classified | CPT/HCPCS: 11042 ==

== ENCOUNTER → 2018-05-02 14:34 | Outpatient (CLI) | payer MEDICARE, OTHER, SELFPAY | PROVIDERS: PCP Internal Medicine; Visit Provider Family Medicine | DX: I87.312 Chronic venous hypertension (idiopathic) with ulcer of left lower extremity (principal); L97.822 Non-pressure chronic ulcer of other part of left lower leg with fat layer exposed; L97.812 Non-pressure chronic ulcer of other part of right lower leg with fat layer exposed; L03.116 Cellulitis of left lower limb; I89.0 Lymphedema, not elsewhere classified; R46.0 Very low level of personal hygiene; L08.9 Local infection of the skin and subcutaneous tissue, unspecified; A49.01 Methicillin susceptible Staphylococcus aureus infection, unspecified site | CPT/HCPCS: 11042; 87070; 87075; 87077; 87186; 87205 ==

== ENCOUNTER → 2018-05-09 14:25 | Outpatient (CLI) | payer MEDICARE, OTHER, SELFPAY | PROVIDERS: PCP Internal Medicine; Visit Provider Family Medicine | DX: I87.313 Chronic venous hypertension (idiopathic) with ulcer of bilateral lower extremity (principal); L97.221 Non-pressure chronic ulcer of left calf limited to breakdown of skin; L97.811 Non-pressure chronic ulcer of other part of right lower leg limited to breakdown of skin; I89.0 Lymphedema, not elsewhere classified; R46.0 Very low level of personal hygiene; L08.9 Local infection of the skin and subcutaneous tissue, unspecified; Z91.19 Patient's noncompliance with other medical treatment and regimen | CPT/HCPCS: 97597; 99213 ==

== ENCOUNTER → 2018-05-16 14:11 | Outpatient (CLI) | payer MEDICARE, OTHER, SELFPAY | PROVIDERS: PCP Internal Medicine; Visit Provider Family Medicine | DX: I87.313 Chronic venous hypertension (idiopathic) with ulcer of bilateral lower extremity (principal); L97.222 Non-pressure chronic ulcer of left calf with fat layer exposed; L97.812 Non-pressure chronic ulcer of other part of right lower leg with fat layer exposed; I89.0 Lymphedema, not elsewhere classified; L08.9 Local infection of the skin and subcutaneous tissue, unspecified | CPT/HCPCS: 11042 ==

== ENCOUNTER → 2018-05-23 10:58 | Outpatient (CLI) | payer MEDICARE, OTHER, SELFPAY | PROVIDERS: PCP Internal Medicine; Visit Provider Family Medicine | DX: I87.2 Venous insufficiency (chronic) (peripheral) (principal); L97.221 Non-pressure chronic ulcer of left calf limited to breakdown of skin; L97.811 Non-pressure chronic ulcer of other part of right lower leg limited to breakdown of skin; I89.0 Lymphedema, not elsewhere classified | CPT/HCPCS: 97597 ==

== ENCOUNTER → 2018-05-30 12:41 | Outpatient (CLI) | payer MEDICARE, OTHER, SELFPAY ==
--- NOTE | 2018-05-30 | DI.MG.S_ITS ---
UNILATERAL RIGHT DIGITAL DIAGNOSTIC MAMMOGRAM 3D/2D WITH ADDITIONAL VIEWS: 05/30/2018 CLINICAL: Additional evaluation requested from prior study. Comparison is made to exams dated: 03/28/2018 mammogram and 06/28/2004 mammogram - [facility]. The tissue of right breast is predominantly fatty. Previously noted 0.5 cm oval circumscribed mass in the right breast (previously described as being at the at the 12 o'clock retroareolar depth position) on comparison screening mammogram localizes to near the 1-2 o'clock position approximately 4-5 cm from the nipple on additional views. IMPRESSION: INCOMPLETE: NEEDS ADDITIONAL IMAGING EVALUATION Previously noted 0.5 cm oval circumscribed mass in the right breast on comparison screening mammogram localizes to near the 1-2 o'clock position approximately 4-5 cm from the nipple on additional views. A targeted ultrasound is recommended and will be performed immediately following this exam. This exam was interpreted at Station ID: [id number]. NOTE: For mammograms, a report in lay terms will be sent to the patient. Approximately 15% of breast malignancies will not be visualized mammographically. In the management of a palpable breast mass, a negative mammogram must not discourage biopsy of a clinically suspicious lesion. Electronically Signed By: Joe Nicole M.D. ecl/:05/30/2018 13:57:40 letter sent: Additional Imaging Needed ACR BI-RADS Category 0: Incomplete [id number]
--- NOTE | 2018-05-30 | DI.US.S_ITS ---
LIMITED ULTRASOUND OF RIGHT BREAST: 05/30/2018 CLINICAL: Patient returns today to evaluate a mass in the right breast. Comparison is made to exams dated: 05/30/2018 mammogram, 03/28/2018 mammogram, and 06/28/2004 mammogram - [facility]. Real-time and Doppler ultrasound of the right breast 12-2 o'clock, and retroareolar regions were performed. Branham scale images of the real-time examination were reviewed. There is a 0.3 x 0.3 x 0.3 cm oval indistinct hypoechoic cyst with internal echogenic foci, mixed posterior acoustic enhancement and shadowing, no vascularity on Doppler ultrasound in the right breast at 1:30 position 4 cm from the nipple. This appears to correlate with the sub-centimeter mass seen on comparison screening and diagnostic mammography. Targeted ultrasound of the retroareolar region and along the 12:00 radian demonstrates no underlying mass or abnormality. IMPRESSION: PROBABLY BENIGN 0.3 cm probable complicated cyst in the right breast at 1:30 position 4 cm from the nipple is probably benign. A follow-up mammogram and an ultrasound in 6 months is recommended to demonstrate stability. The patient is advised to monitor her breasts and to return sooner for re-evaluation should she feel anything grow or change. This exam was interpreted at Station ID: [id number]. Electronically Signed By: Joe Nicole M.D. ecl/:05/30/2018 15:11:31 letter sent: Followup Recommended Ultrasound BI-RADS: 3 Probably benign
== END ==
PROVIDERS: PCP Internal Medicine; Visit Provider Internal Medicine
DX: R92.8 Other abnormal and inconclusive findings on diagnostic imaging of breast (principal); N60.01 Solitary cyst of right breast; I87.312 Chronic venous hypertension (idiopathic) with ulcer of left lower extremity; L97.822 Non-pressure chronic ulcer of other part of left lower leg with fat layer exposed; L03.116 Cellulitis of left lower limb; I89.0 Lymphedema, not elsewhere classified; R46.0 Very low level of personal hygiene
CPT/HCPCS: 76642; 77065; 97597; 99213; G0279

== ENCOUNTER → 2018-06-06 08:55 | Outpatient (CLI) | payer MEDICARE, OTHER, SELFPAY | PROVIDERS: PCP Internal Medicine; Visit Provider Family Medicine | DX: I87.2 Venous insufficiency (chronic) (peripheral) (principal); L97.812 Non-pressure chronic ulcer of other part of right lower leg with fat layer exposed; L97.222 Non-pressure chronic ulcer of left calf with fat layer exposed; I89.0 Lymphedema, not elsewhere classified | CPT/HCPCS: 11042 ==

== ENCOUNTER → 2018-06-20 10:03 | Outpatient (CLI) | payer MEDICARE, OTHER, SELFPAY | PROVIDERS: PCP Internal Medicine; Visit Provider Family Medicine | DX: I87.2 Venous insufficiency (chronic) (peripheral) (principal); L97.222 Non-pressure chronic ulcer of left calf with fat layer exposed; I89.0 Lymphedema, not elsewhere classified; L97.812 Non-pressure chronic ulcer of other part of right lower leg with fat layer exposed; R46.0 Very low level of personal hygiene; Z91.19 Patient's noncompliance with other medical treatment and regimen | CPT/HCPCS: 11042; 87070; 87075; 87077; 87102; 87186; 87205 ==

== ENCOUNTER → 2018-07-04 10:22 | Outpatient (CLI) | payer MEDICARE, OTHER, SELFPAY | PROVIDERS: PCP Internal Medicine; Visit Provider Family Medicine | DX: I87.313 Chronic venous hypertension (idiopathic) with ulcer of bilateral lower extremity (principal); L97.221 Non-pressure chronic ulcer of left calf limited to breakdown of skin; L97.811 Non-pressure chronic ulcer of other part of right lower leg limited to breakdown of skin; I89.0 Lymphedema, not elsewhere classified; B96.4 Proteus (mirabilis) (morganii) as the cause of diseases classified elsewhere; L08.9 Local infection of the skin and subcutaneous tissue, unspecified | CPT/HCPCS: 11042; 99214 ==

== ENCOUNTER → 2018-07-11 14:54 | Outpatient (CLI) | payer MEDICARE, OTHER, SELFPAY | PROVIDERS: PCP Internal Medicine; Visit Provider Family Medicine | DX: I87.313 Chronic venous hypertension (idiopathic) with ulcer of bilateral lower extremity (principal); L97.221 Non-pressure chronic ulcer of left calf limited to breakdown of skin; L97.811 Non-pressure chronic ulcer of other part of right lower leg limited to breakdown of skin; L08.9 Local infection of the skin and subcutaneous tissue, unspecified; B96.4 Proteus (mirabilis) (morganii) as the cause of diseases classified elsewhere | CPT/HCPCS: 97597 ==

== ENCOUNTER → 2018-07-18 10:10 | Outpatient (CLI) | payer MEDICARE, OTHER, SELFPAY | PROVIDERS: PCP Internal Medicine; Visit Provider Family Medicine | DX: I87.311 Chronic venous hypertension (idiopathic) with ulcer of right lower extremity (principal); L97.812 Non-pressure chronic ulcer of other part of right lower leg with fat layer exposed; I89.0 Lymphedema, not elsewhere classified; L08.9 Local infection of the skin and subcutaneous tissue, unspecified | CPT/HCPCS: 11042; 87070; 87075; 87205 ==

== ENCOUNTER → 2018-07-25 10:43 | Outpatient (CLI) | payer MEDICARE, OTHER, SELFPAY | PROVIDERS: PCP Internal Medicine; Visit Provider Family Medicine | DX: I87.2 Venous insufficiency (chronic) (peripheral) (principal); L97.811 Non-pressure chronic ulcer of other part of right lower leg limited to breakdown of skin; I89.0 Lymphedema, not elsewhere classified | CPT/HCPCS: 11042 ==

== ENCOUNTER → 2018-08-01 10:13 | Outpatient (CLI) | payer MEDICARE, OTHER, SELFPAY | PROVIDERS: PCP Internal Medicine; Visit Provider Family Medicine | DX: I87.311 Chronic venous hypertension (idiopathic) with ulcer of right lower extremity (principal); L97.812 Non-pressure chronic ulcer of other part of right lower leg with fat layer exposed; I89.0 Lymphedema, not elsewhere classified | CPT/HCPCS: 11042; 87070; 87075; 87077; 87186; 87205 ==

== ENCOUNTER → 2018-08-08 09:11 | Outpatient (CLI) | payer MEDICARE, OTHER, SELFPAY | PROVIDERS: PCP Internal Medicine; Visit Provider Family Medicine | DX: I89.0 Lymphedema, not elsewhere classified (principal); I87.2 Venous insufficiency (chronic) (peripheral); L97.812 Non-pressure chronic ulcer of other part of right lower leg with fat layer exposed | CPT/HCPCS: 87070; 87075; 87077; 87147; 87186; 87205; 97597; 99214 ==

== ENCOUNTER → 2018-08-15 10:02 | Outpatient (CLI) | payer MEDICARE, OTHER, SELFPAY | PROVIDERS: PCP Internal Medicine; Visit Provider Family Medicine | DX: I87.2 Venous insufficiency (chronic) (peripheral) (principal); L97.811 Non-pressure chronic ulcer of other part of right lower leg limited to breakdown of skin; I89.0 Lymphedema, not elsewhere classified | CPT/HCPCS: 97597 ==

== ENCOUNTER → 2018-08-22 14:30 | Outpatient (CLI) | payer MEDICARE, OTHER, SELFPAY | PROVIDERS: PCP Internal Medicine; Visit Provider Family Medicine | DX: I87.311 Chronic venous hypertension (idiopathic) with ulcer of right lower extremity (principal); L97.811 Non-pressure chronic ulcer of other part of right lower leg limited to breakdown of skin; I89.0 Lymphedema, not elsewhere classified; R46.0 Very low level of personal hygiene | CPT/HCPCS: 15271; Q4196 ==

== ENCOUNTER → 2018-08-29 10:11 | Outpatient (CLI) | payer MEDICARE, OTHER, SELFPAY | PROVIDERS: PCP Internal Medicine; Visit Provider Family Medicine | DX: I87.311 Chronic venous hypertension (idiopathic) with ulcer of right lower extremity (principal); L97.812 Non-pressure chronic ulcer of other part of right lower leg with fat layer exposed; I89.0 Lymphedema, not elsewhere classified; R46.0 Very low level of personal hygiene | CPT/HCPCS: 15271; Q4196 ==

== ENCOUNTER → 2018-09-05 09:48 | Outpatient (CLI) | payer MEDICARE, OTHER, SELFPAY | PROVIDERS: PCP Internal Medicine; Visit Provider Family Medicine | DX: I87.312 Chronic venous hypertension (idiopathic) with ulcer of left lower extremity (principal); L97.822 Non-pressure chronic ulcer of other part of left lower leg with fat layer exposed; L89.893 Pressure ulcer of other site, stage 3; S91.104A Unspecified open wound of right lesser toe(s) without damage to nail, initial encounter; I89.0 Lymphedema, not elsewhere classified; R46.0 Very low level of personal hygiene; L97.811 Non-pressure chronic ulcer of other part of right lower leg limited to breakdown of skin | CPT/HCPCS: 11042; 87070; 87075; 87077; 87147; 87186; 87205; 97597; 99213 ==

== ENCOUNTER → 2018-09-19 11:23 | Outpatient (CLI) | payer MEDICARE, OTHER, SELFPAY | PROVIDERS: PCP Internal Medicine; Visit Provider Family Medicine | DX: I87.2 Venous insufficiency (chronic) (peripheral) (principal); L97.822 Non-pressure chronic ulcer of other part of left lower leg with fat layer exposed; L97.812 Non-pressure chronic ulcer of other part of right lower leg with fat layer exposed; L89.893 Pressure ulcer of other site, stage 3; S91.104A Unspecified open wound of right lesser toe(s) without damage to nail, initial encounter; I89.0 Lymphedema, not elsewhere classified; L08.9 Local infection of the skin and subcutaneous tissue, unspecified | CPT/HCPCS: 87070; 87075; 87077; 87147; 87186; 87205; 97597; 99213; 99214 ==

== ENCOUNTER → 2018-09-26 09:49 | Outpatient (CLI) | payer MEDICARE, OTHER, SELFPAY | PROVIDERS: PCP Internal Medicine; Visit Provider Family Medicine | DX: I87.312 Chronic venous hypertension (idiopathic) with ulcer of left lower extremity (principal); L97.822 Non-pressure chronic ulcer of other part of left lower leg with fat layer exposed; L97.812 Non-pressure chronic ulcer of other part of right lower leg with fat layer exposed | CPT/HCPCS: 99213; 99214 ==

== ENCOUNTER → 2018-10-03 10:23 | Outpatient (CLI) | payer MEDICARE, OTHER, SELFPAY | PROVIDERS: PCP Internal Medicine; Visit Provider Family Medicine | DX: I87.312 Chronic venous hypertension (idiopathic) with ulcer of left lower extremity (principal); L97.822 Non-pressure chronic ulcer of other part of left lower leg with fat layer exposed; L97.812 Non-pressure chronic ulcer of other part of right lower leg with fat layer exposed; I89.0 Lymphedema, not elsewhere classified; L03.116 Cellulitis of left lower limb; L03.115 Cellulitis of right lower limb | CPT/HCPCS: 11042 ==

== ENCOUNTER 2018-10-10 09:00 | Outpatient (RCR) | payer MEDICARE, OTHER, SELFPAY ==
--- NOTE | 2018-03-25 09:08 | PT.OPPOC ---
Current Diagnoses Lymphedema, not elsewhere classified (03/21/18) Difficulty in walking, not elsewhere classified (03/21/18) Weakness (03/21/18) Provider Visit Care Team Role Provider Type Arya Beyer MD Family Provider Physician Primary Care Provider Specialty: Internal Medicine Address: [address] [place] [address], [id number] Email: Keegan Fontanez MD Attending Provider Physician Specialty: Wound Care Address: [address] [place] [address], [id number] Email: Plan Of Care PT-OP-T Assessment and Plan Start: 03/21/18 13:01 Freq: Status: Active Protocol: Document 03/25/18 08:43 [facility] (Rec: 03/25/18 09:06 [facility] [id number]) Physical Therapy Assessment Rehab Potential Rehabilitation Potential Fair Evaluation Complexity Number of Personal Factors/Comorbidities 3 or More Number of Body Systems Impaired 4 or More Clinical Presentation at Evaluation Unstable Impairments Impairments Activity Tolerance Edema Gait Strength Goals 4 Impairment activity tolerance, gait Short Term Goal (STG) Patient will be able to ambulate with FWW for at least 5 min without excess fatigue or pain STG Duration 4 wks Recovery Coordinator Goal (LTG) Patient will be able to ambulate for 15 min with FWW to as evidence of improved activity tolerance and mobility to increase her functional independence and safety in home and community. 3 Impairment weakness Short Term Goal (STG) Initiate LE strengthening exercises to improve strength and mobility. STG Duration 4 wks Residential Goal (LTG) Patient to demonstrate increase in LE strength to 4/5 throughout LTG Duration 3 months 2 Impairment Knowledge deficit Short Term Goal (STG) Patient to be instructed in self-MLD with adaptations, lymphedema precautions, sequential lymphedema exercises STG Duration 4 wks Residential Goal (LTG) Patient to be independent with all aspects of lymphedema self-management LTG Duration 3 months 1 Impairment edema bilateral LE's Short Term Goal (STG) Decrease lymphedema to stable level with no increase or decrease more than 1 cm over the course of 1 wk STG Duration 6 wks Residential Goal (LTG) Patient to be fit with appropriate compression garment for lymphedema management; need to evaluate current Circ-Aid and recommend additional Circ-Aid left knee to hip. May need to consider home lymhedema pump LTG Duration 3 months Assessment Summary Assessment Patient presents with exacerbation of her chronic lymphedema, complicated by her weakness, low activity level, uncertain compliance to lymphedema management in her home. Feel she would benefit from PT for lymphedema mangement, strengthening, gait training to improve her edema , strength, and function mobility and safety in her home and in the community for improved health and quality of life. Physical Therapy Plan Frequency and Duration Frequency of Treatment 2x/Week Therapeutic Interventions Therapeutic Interventions Gait Training Home Exercise Program Lymphedema Management Manual Therapy Patient/Caregiver Education Self-Care/Home Management Therapeutic Activities Therapeutic Exercises Modalities Vasopneumatic Devices Other Referrals/Consults Referrals/Consults Recommended Consult regarding home lymphedema pump Next Visit Focus/Plan Next Note Type Treatment Note Next Visit Plan Evaluate patient's current Circ-Aid fit, further discussion of Circ-Aid for left thigh, initiate sequential lymphedema exercises, continue patient education, progress with ther ex and gait. Trial different sizes Tubigrip for more sequential interim compression . Please Sign and Return: I have reviewed this Plan of Care and certify that the skilled therapy services above are required to meet the patient?s needs. Physician Signature Date Printed Name and Credentials Clinical Instructor Signature Printed Name and Credentials
--- NOTE | 2018-03-25 09:08 | PT.OIE ---
Current Diagnoses Lymphedema, not elsewhere classified (03/21/18) Difficulty in walking, not elsewhere classified (03/21/18) Weakness (03/21/18) Past Medical History (Last Reviewed 11/21/17 @ 08:47 by William Zavala MD) Morbid obesity (Acute) Stasis dermatitis (Acute) Wound of lower extremity (Acute) Past Surgical History (Last Updated 11/17/17 @ 19:39 by Rex Ram MD) H/O umbilical hernia repair (Acute) Provider Visit Care Team Role Provider Type Arya Beyer MD Family Provider Physician Primary Care Provider Specialty: Internal Medicine Address: [address] [place] [address], [facility] Email: Keegan Fontanez MD Attending Provider Physician Specialty: Wound Care Address: [address] [place] [address], [facility] Email: Physical Therapy Initial Evaluation PT-OP-A Visit Information Start: 03/21/18 13:01 Freq: Status: Active Protocol: Document 03/21/18 16:37 [facility] (Rec: 03/21/18 16:53 [facility] [id number]) Out-Patient Physical Therapy Visit Information Visit Information Visit Type Initial Evaluation Visit Start Time 13:00 Visit Stop Time 14:10 Total Visit Minutes 70 Visit Number 1/10 Number of FIELD TECHNICAL ASSISTANT Visits 0 Evaluation Information Evaluation Date 03/21/18 PT-OP-B Current Condition Start: 03/21/18 13:01 Freq: Status: Active Protocol: Document 03/21/18 16:37 [facility] (Rec: 03/21/18 16:53 [facility] [id number]) Current Condition History of Current Condition Onset Date 10+ years Current Complaints lymphedema, limited function bilateral LE's left greater than right. History of Current Condition Patient reports long history of lymphedema in LE's, several bouts of cellulitis including a recent hospitalization. Going to wound care department and having Home Health nursing for wounds on her left toes and lower leg (covered with dressings after wound care appointment today.) States she currently uses Tubigrip size G (in place from toes to knees) for compression; previously had custom-fit compression stockings which she stated were too tight and she cut them off and threw them away: I wouldn't try those again if God gave me the money to afford them. Has roll of size G Tubigrip at home, uses only to knee because won't fit upper leg. Reports prior use of compression pump, uncertain of effect. Wears Circ Aids from foot to knee but not wearing today. Refuses lymphedema wrapping again due to prior poor experience per her report. Has never worn compression above her knee. Reports low activity level with use of FWW. Spends most of her day sitting in chair. Prior Functional Status Baseline Function- ADL's Modified Independent Baseline Function- Mobility Modified Independent Baseline Function- Gait Uses FWW Current Functional Impairments (Reported) Functional Limitations- ADL's Needs assist Functional Limitations- Mobility/Gait Modified independent, slow, painful Personal Factors Other Personal Factors That May Effect Low activity level, resistance Therapy/Recovery to compression stockings. PT-OP-G Mobility & Gait Start: 03/21/18 13:01 Freq: Status: Active Protocol: Document 03/25/18 08:43 [facility] (Rec: 03/25/18 09:06 [facility] [id number]) OP Gait Assessment Gait Gait Assistance Required: Standby Assistance Distance (Feet) 60 Assistive Devices Assistive Device Front Wheeled Walker Gait Deviations General Gait Pattern Antalgic Decreased Stride Length Decreased Feet Clearance Flexed Trunk Comments Gait Comments Limited by edema, pain, deconditioning PT-OP-J Posture/Palpation/Skin Start: 03/21/18 13:01 Freq: Status: Active Protocol: Document 03/25/18 08:43 [facility] (Rec: 03/25/18 09:06 [facility] [id number]) Palpation Assessment Location LE's Palpation Findings Edema Palpation Details reddening and fibrosis of tissue bilateral lower legs knees to ankles. No reddening or fibrosis from knees proximal. Skin Assessment Edema Assessment Bilateral Leg Edema Appearance Dimpled Discolored Firm Open Sores Taut Subjective Edema Description Pain Tightness Other Assessments Skin Assessment Comments see photos in chart PT-OP-K Range of Motion Start: 03/21/18 13:01 Freq: Status: Active Protocol: Document 03/25/18 08:43 [facility] (Rec: 03/25/18 09:06 [facility] [id number]) Hip Goniometric Range of Motion Hip ROM Limitations Comments Moderate decrease due to weakness and swelling Knee Goniometric Range of Motion Knee ROM Limitations Knee ROM Limitations Soft Tissue Tightness Muscle Weakness Swelling Ankle and Foot Goniometric Range of Motion Ankle and Foot ROM Limitations ROM Limitations Soft Tissue Tightness Comments minimal edema in feet PT-OP-M Strength Start: 03/21/18 13:01 Freq: Status: Active Protocol: Document 03/25/18 08:43 [facility] (Rec: 03/25/18 09:06 [facility] [id number]) Hip Strength Hip Manual Muscle Testing edith Comments grossly 2/5 throughout Knee Strength Knee Manual Muscle Testing bilateral Comments grossly 3+/5 throughout Ankle/Foot Strength Ankle and Foot Manual Muscle Testing bilateral Comments 4/5 throughout PT-OP-N Lymphedema Start: 03/21/18 13:01 Freq: Status: Active Protocol: Document 03/25/18 08:43 [facility] (Rec: 03/25/18 09:06 [facility] [id number]) Lymphedema Measurements Lower Extremity Circumference Measurements Left Affected Medial Malleolus 31.9 cm 10 cm From Medial Malleolus 28.1 cm 20 cm From Medial Malleolus 33.2 cm 30 cm From Medial Malleolus 59.2 cm 40 cm From Medial Malleolus 67.1 cm 50 cm From Medial Malleolus 73.4 cm 60 cm From Medial Malleolus 74.1 cm Right Affected [place] Heads 25.3 cm Medial Malleolus 31.8 cm 10 cm From Medial Malleolus 30.7 cm 20 cm From Medial Malleolus 44.9 cm 30 cm From Medial Malleolus 54.3 cm 40 cm From Medial Malleolus 67.6 cm 50 cm From Medial Malleolus 72.2 cm 60 cm From Medial Malleolus 67.6 cm Comments Lymphedema Comments see photos in chart. Left MTP measurement not taken due to thick dressing. PT-OP-Q Treatments Start: 03/21/18 13:01 Freq: Status: Active Protocol: Document 03/21/18 13:00 [facility] (Rec: 03/21/18 16:53 [facility] [id number]) Cardio Equipment Recumbent Elliptical (Biodex) Duration (Minutes) 5 Resistance 1 Other mod assist on and off Lymphedema Treatment Manual Lymphatic Drainage Location left LE Comments Cetaphil lotion applied to bilateral LE's. MLD to left LE for edema reduction. Lymphedema Wrapping Body Location left LE Materials Tubigrip size G Other Patient refuses lymphedema wrapping Patient Education Lymphedema Pathology patient reports prior instruction Lymphedema Prevention patient reports prior instruction Lymphedema Precautions patient reports prior instruction Compression Garments Importance of above knee compression Self Manual Lymphatic Drainage Patient unable to reach LE's Sequential Lymphedema Exercises initiate next session PT-OP-T Assessment and Plan Start: 03/21/18 13:01 Freq: Status: Active Protocol: Document 03/25/18 08:43 [facility] (Rec: 03/25/18 09:06 [facility] [id number]) Physical Therapy Assessment Rehab Potential Rehabilitation Potential Fair Evaluation Complexity Number of Personal Factors/Comorbidities 3 or More Number of Body Systems Impaired 4 or More Clinical Presentation at Evaluation Unstable Impairments Impairments Activity Tolerance Edema Gait Strength Goals 4 Impairment activity tolerance, gait Short Term Goal (STG) Patient will be able to ambulate with FWW for at least 5 min without excess fatigue or pain STG Duration 4 wks Canned Food Reconditioning Inspector Goal (LTG) Patient will be able to ambulate for 15 min with FWW to as evidence of improved activity tolerance and mobility to increase her functional independence and safety in home and community. 3 Impairment weakness Short Term Goal (STG) Initiate LE strengthening exercises to improve strength and mobility. STG Duration 4 wks [facility] Goal (LTG) Patient to demonstrate increase in LE strength to 4/5 throughout LTG Duration 3 months 2 Impairment Knowledge deficit Short Term Goal (STG) Patient to be instructed in self-MLD with adaptations, lymphedema precautions, sequential lymphedema exercises STG Duration 4 wks [facility] Goal (LTG) Patient to be independent with all aspects of lymphedema self-management LTG Duration 3 months 1 Impairment edema bilateral LE's Short Term Goal (STG) Decrease lymphedema to stable level with no increase or decrease more than 1 cm over the course of 1 wk STG Duration 6 wks Canned Food Reconditioning Inspector Goal (LTG) Patient to be fit with appropriate compression garment for lymphedema management; need to evaluate current Circ-Aid and recommend additional Circ-Aid left knee to hip. May need to consider home lymhedema pump LTG Duration 3 months Assessment Summary Assessment Patient presents with exacerbation of her chronic lymphedema, complicated by her weakness, low activity level, uncertain compliance to lymphedema management in her home. Feel she would benefit from PT for lymphedema mangement, strengthening, gait training to improve her edema , strength, and function mobility and safety in her home and in the community for improved health and quality of life. Physical Therapy Plan Frequency and Duration Frequency of Treatment 2x/Week Therapeutic Interventions Therapeutic Interventions Gait Training Home Exercise Program Lymphedema Management Manual Therapy Patient/Caregiver Education Self-Care/Home Management Therapeutic Activities Therapeutic Exercises Modalities Vasopneumatic Devices Other Referrals/Consults Referrals/Consults Recommended Consult regarding home lymphedema pump Next Visit Focus/Plan Next Note Type Treatment Note Next Visit Plan Evaluate patient's current Circ-Aid fit, further discussion of Circ-Aid for left thigh, initiate sequential lymphedema exercises, continue patient education, progress with ther ex and gait. Trial different sizes Tubigrip for more sequential interim compression .
--- NOTE | 2018-03-28 14:17 | PT.OTN ---
Current Diagnoses Lymphedema, not elsewhere classified (03/28/18) Physical Therapy Treatment Note PT-OP-A Visit Information Start: 03/21/18 13:01 Freq: Status: Active Protocol: Document 03/21/18 13:00 [facility] (Rec: 03/21/18 16:53 [facility] [id number]) Out-Patient Physical Therapy Visit Information Visit Information Visit Type Initial Evaluation Visit Start Time 13:00 Visit Stop Time 14:10 Total Visit Minutes 70 Visit Number 04/25 Number of DEPUTY DIRECTOR OF FINANCE Visits 0 Evaluation Information Evaluation Date 03/21/18 PT-OP-B Current Condition Start: 03/21/18 13:01 Freq: Status: Active Protocol: Document 03/21/18 13:00 [facility] (Rec: 03/21/18 16:53 [facility] [id number]) Current Condition History of Current Condition Onset Date 10+ years Current Complaints lymphedema, limited function bilateral LE's left greater than right. History of Current Condition Patient reports long history of lymphedema in LE's, several bouts of cellulitis including a recent hospitalization. Going to wound care department and having Home Health nursing for wounds on her left toes and lower leg (covered with dressings after wound care appointment today.) States she currently uses Tubigrip size G (in place from toes to knees) for compression; previously had custom-fit compression stockings which she stated were too tight and she cut them off and threw them away: I wouldn't try those again if God gave me the money to afford them. Has roll of size G Tubigrip at home, uses only to knee because won't fit upper leg. Reports prior use of compression pump, uncertain of effect. Wears Circ Aids from foot to knee but not wearing today. Refuses lymphedema wrapping again due to prior poor experience per her report. Has never worn compression above her knee. Reports low activity level with use of FWW. Spends most of her day sitting in chair. Prior Functional Status Baseline Function- ADL's Modified Independent Baseline Function- Mobility Modified Independent Baseline Function- Gait Uses FWW Current Functional Impairments (Reported) Functional Limitations- ADL's Needs assist Functional Limitations- Mobility/Gait Modified independent, slow, painful Personal Factors Other Personal Factors That May Effect Low activity level, resistance Therapy/Recovery to compression stockings. PT-OP-C Subjective Start: 03/21/18 13:01 Freq: Status: Active Protocol: Document 03/28/18 14:06 [facility] (Rec: 03/28/18 14:17 [facility] [id number]) OP-PT Subjective Patient Comments Patient Comments Interested in ordering upper leg Circ Aid. States her wounds seemed better in her appt at wound care just prior to PT. PT-OP-G Mobility & Gait Start: 03/21/18 13:01 Freq: Status: Active Protocol: Document 03/21/18 13:00 [facility] (Rec: 03/25/18 09:06 [facility] [id number]) OP Gait Assessment Gait Gait Assistance Required: Standby Assistance Distance (Feet) 60 Assistive Devices Assistive Device Front Wheeled Walker Gait Deviations General Gait Pattern Antalgic Decreased Stride Length Decreased Feet Clearance Flexed Trunk Comments Gait Comments Limited by edema, pain, deconditioning PT-OP-J Posture/Palpation/Skin Start: 03/21/18 13:01 Freq: Status: Active Protocol: Document 03/21/18 13:00 [facility] (Rec: 03/25/18 09:06 [facility] [id number]) Palpation Assessment Location LE's Palpation Findings Edema Palpation Details reddening and fibrosis of tissue bilateral lower legs knees to ankles. No reddening or fibrosis from knees proximal. Skin Assessment Edema Assessment Bilateral Leg Edema Appearance Dimpled Discolored Firm Open Sores Taut Subjective Edema Description Pain Tightness Other Assessments Skin Assessment Comments see photos in chart PT-OP-K Range of Motion Start: 03/21/18 13:01 Freq: Status: Active Protocol: Document 03/21/18 13:00 [facility] (Rec: 03/25/18 09:06 [facility] [id number]) Hip Goniometric Range of Motion Hip ROM Limitations Comments Moderate decrease due to weakness and swelling Knee Goniometric Range of Motion Knee ROM Limitations Knee ROM Limitations Soft Tissue Tightness Muscle Weakness Swelling Ankle and Foot Goniometric Range of Motion Ankle and Foot ROM Limitations ROM Limitations Soft Tissue Tightness Comments minimal edema in feet PT-OP-M Strength Start: 03/21/18 13:01 Freq: Status: Active Protocol: Document 03/21/18 13:00 [facility] (Rec: 03/25/18 09:06 [facility] [id number]) Hip Strength Hip Manual Muscle Testing edith Comments grossly 2/5 throughout Knee Strength Knee Manual Muscle Testing bilateral Comments grossly 3+/5 throughout Ankle/Foot Strength Ankle and Foot Manual Muscle Testing bilateral Comments 4/5 throughout PT-OP-N Lymphedema Start: 03/21/18 13:01 Freq: Status: Active Protocol: Document 03/21/18 13:00 [facility] (Rec: 03/25/18 09:06 [facility] [id number]) Lymphedema Measurements Lower Extremity Circumference Measurements Left Affected Medial Malleolus 31.9 cm 10 cm From Medial Malleolus 28.1 cm 20 cm From Medial Malleolus 33.2 cm 30 cm From Medial Malleolus 59.2 cm 40 cm From Medial Malleolus 67.1 cm 50 cm From Medial Malleolus 73.4 cm 60 cm From Medial Malleolus 74.1 cm Right Affected MT Heads 25.3 cm Medial Malleolus 31.8 cm 10 cm From Medial Malleolus 30.7 cm 20 cm From Medial Malleolus 44.9 cm 30 cm From Medial Malleolus 54.3 cm 40 cm From Medial Malleolus 67.6 cm 50 cm From Medial Malleolus 72.2 cm 60 cm From Medial Malleolus 67.6 cm Comments Lymphedema Comments see photos in chart. Left MTP measurement not taken due to thick dressing. PT-OP-Q Treatments Start: 03/21/18 13:01 Freq: Status: Active Protocol: Document 03/28/18 14:06 [facility] (Rec: 03/28/18 14:15 [facility] [id number]) Cardio Equipment Recumbent Elliptical (BiodTargazyme) Other refused today due to time constraints Lymphedema Treatment Manual Lymphatic Drainage Location edith LE's left greater than right Comments Cetaphil lotion applied to bilateral LE's. MLD to edith LE for edema reduction. Lymphedema Wrapping Body Location edith thighs Materials Tubigrip size H Sequential Lymphedema Exercises Location edith LE's Comments 5 reps ea, supine Patient Education Compression Garments given info re Circ Aid upper leg reduction kit Other Prescription obtained for above from Dr. Fontanez for patient to check with insurance and order PT-OP-T Assessment and Plan Start: 03/21/18 13:01 Freq: Status: Active Protocol: Document 03/28/18 14:06 [facility] (Rec: 03/28/18 14:15 [facility] [id number]) Physical Therapy Assessment Goals 4 Impairment activity tolerance, gait Short Term Goal (STG) Patient will be able to ambulate with FWW for at least 5 min without excess fatigue or pain STG Duration 4 wks Detention Goal (LTG) Patient will be able to ambulate for 15 min with FWW to as evidence of improved activity tolerance and mobility to increase her functional independence and safety in home and community. 3 Impairment weakness Short Term Goal (STG) Initiate LE strengthening exercises to improve strength and mobility. STG Duration 4 wks Machine Tool Designer Goal (LTG) Patient to demonstrate increase in LE strength to 4/5 throughout LTG Duration 3 months 2 Impairment Knowledge deficit Short Term Goal (STG) Patient to be instructed in self-MLD with adaptations, lymphedema precautions, sequential lymphedema exercises STG Duration 4 wks Machine Tool Designer Goal (LTG) Patient to be independent with all aspects of lymphedema self-management LTG Duration 3 months 1 Impairment edema bilateral LE's Short Term Goal (STG) Decrease lymphedema to stable level with no increase or decrease more than 1 cm over the course of 1 wk STG Duration 6 wks Machine Tool Designer Goal (LTG) Patient to be fit with appropriate compression garment for lymphedema management; need to evaluate current Circ-Aid and recommend additional Circ-Aid left knee to hip. May need to consider home lymhedema pump LTG Duration 3 months Assessment Summary Assessment Patient demonstrating improved willingness to obtain upper leg Circ Aid; she will check coverage with her insurance. Able to perform sequential lymphedema exercises edith LE's but refused further ex at end of session due to time constraints; another appt. Good fit of Size H for interim compression upper legs though easily slides down. Pt. advised to frequently check position and fit of all Tubigrip and adjust as necessary throughout the day ( lower leg Tubigrip and lower leg Circ aids applied by wound care prior to PT) Physical Therapy Plan Frequency and Duration Frequency of Treatment 2x/Week Duration of Treatment 3 months Plan of Care Start Date 03/21/18 Plan of Care End Date 06/19/18 Therapeutic Interventions Therapeutic Interventions Gait Training Home Exercise Program Lymphedema Management Manual Therapy Patient/Caregiver Education Self-Care/Home Management Therapeutic Activities Therapeutic Exercises Modalities Vasopneumatic Devices Next Visit Focus/Plan Next Note Type Treatment Note Next Visit Plan Progress with ther ex, MLD, check with patient about Circ Aid ordering. Lymphedema management.
--- NOTE | 2018-04-11 14:46 | PT.OTN ---
Current Diagnoses Lymphedema, not elsewhere classified (04/11/18) Physical Therapy Treatment Note PT-OP-A Visit Information Start: 03/21/18 13:01 Freq: Status: Active Protocol: Document 04/11/18 12:59 [facility] (Rec: 04/11/18 13:12 [facility] [id number]) Out-Patient Physical Therapy Visit Information Visit Information Visit Type Treatment Note Visit Start Time 13:00 Visit Stop Time 14:20 Total Visit Minutes 80 Visit Number 3/10 Number of OUTDOOR ILLUMINATING ENGINEER Visits 0 PT-OP-B Current Condition Start: 03/21/18 13:01 Freq: Status: Active Protocol: Document 03/21/18 13:00 [facility] (Rec: 03/21/18 16:53 [facility] [id number]) Current Condition History of Current Condition Onset Date 10+ years Current Complaints lymphedema, limited function bilateral LE's left greater than right. History of Current Condition Patient reports long history of lymphedema in LE's, several bouts of cellulitis including a recent hospitalization. Going to wound care department and having Home Health nursing for wounds on her left toes and lower leg (covered with dressings after wound care appointment today.) States she currently uses Tubigrip size G (in place from toes to knees) for compression; previously had custom-fit compression stockings which she stated were too tight and she cut them off and threw them away: I wouldn't try those again if God gave me the money to afford them. Has roll of size G Tubigrip at home, uses only to knee because won't fit upper leg. Reports prior use of compression pump, uncertain of effect. Wears Circ Aids from foot to knee but not wearing today. Refuses lymphedema wrapping again due to prior poor experience per her report. Has never worn compression above her knee. Reports low activity level with use of FWW. Spends most of her day sitting in chair. Prior Functional Status Baseline Function- ADL's Modified Independent Baseline Function- Mobility Modified Independent Baseline Function- Gait Uses FWW Current Functional Impairments (Reported) Functional Limitations- ADL's Needs assist Functional Limitations- Mobility/Gait Modified independent, slow, painful Personal Factors Other Personal Factors That May Effect Low activity level, resistance Therapy/Recovery to compression stockings. PT-OP-C Subjective Start: 03/21/18 13:01 Freq: Status: Active Protocol: Document 04/11/18 12:59 [facility] (Rec: 04/11/18 13:12 [facility] [id number]) OP-PT Subjective Patient Comments Patient Comments Has ordered Circ Aid; should be on its way. PT-OP-G Mobility & Gait Start: 03/21/18 13:01 Freq: Status: Active Protocol: Document 03/21/18 13:00 [facility] (Rec: 03/25/18 09:06 [facility] [id number]) OP Gait Assessment Gait Gait Assistance Required: Standby Assistance Distance (Feet) 60 Assistive Devices Assistive Device Front Wheeled Walker Gait Deviations General Gait Pattern Antalgic Decreased Stride Length Decreased Feet Clearance Flexed Trunk Comments Gait Comments Limited by edema, pain, deconditioning PT-OP-J Posture/Palpation/Skin Start: 03/21/18 13:01 Freq: Status: Active Protocol: Document 03/21/18 13:00 [facility] (Rec: 03/25/18 09:06 [facility] [id number]) Palpation Assessment Location LE's Palpation Findings Edema Palpation Details reddening and fibrosis of tissue bilateral lower legs knees to ankles. No reddening or fibrosis from knees proximal. Skin Assessment Edema Assessment Bilateral Leg Edema Appearance Dimpled Discolored Firm Open Sores Taut Subjective Edema Description Pain Tightness Other Assessments Skin Assessment Comments see photos in chart PT-OP-K Range of Motion Start: 03/21/18 13:01 Freq: Status: Active Protocol: Document 03/21/18 13:00 [facility] (Rec: 03/25/18 09:06 [facility] [id number]) Hip Goniometric Range of Motion Hip ROM Limitations Comments Moderate decrease due to weakness and swelling Knee Goniometric Range of Motion Knee ROM Limitations Knee ROM Limitations Soft Tissue Tightness Muscle Weakness Swelling Ankle and Foot Goniometric Range of Motion Ankle and Foot ROM Limitations ROM Limitations Soft Tissue Tightness Comments minimal edema in feet PT-OP-M Strength Start: 03/21/18 13:01 Freq: Status: Active Protocol: Document 03/21/18 13:00 [facility] (Rec: 03/25/18 09:06 [facility] [id number]) Hip Strength Hip Manual Muscle Testing edith Comments grossly 2/5 throughout Knee Strength Knee Manual Muscle Testing bilateral Comments grossly 3+/5 throughout Ankle/Foot Strength Ankle and Foot Manual Muscle Testing bilateral Comments 4/5 throughout PT-OP-N Lymphedema Start: 03/21/18 13:01 Freq: Status: Active Protocol: Document 03/21/18 13:00 [facility] (Rec: 03/25/18 09:06 [facility] [id number]) Lymphedema Measurements Lower Extremity Circumference Measurements Left Affected Medial Malleolus 31.9 cm 10 cm From Medial Malleolus 28.1 cm 20 cm From Medial Malleolus 33.2 cm 30 cm From Medial Malleolus 59.2 cm 40 cm From Medial Malleolus 67.1 cm 50 cm From Medial Malleolus 73.4 cm 60 cm From Medial Malleolus 74.1 cm Right Affected MT Heads 25.3 cm Medial Malleolus 31.8 cm 10 cm From Medial Malleolus 30.7 cm 20 cm From Medial Malleolus 44.9 cm 30 cm From Medial Malleolus 54.3 cm 40 cm From Medial Malleolus 67.6 cm 50 cm From Medial Malleolus 72.2 cm 60 cm From Medial Malleolus 67.6 cm Comments Lymphedema Comments see photos in chart. Left MTP measurement not taken due to thick dressing. PT-OP-Q Treatments Start: 03/21/18 13:01 Freq: Status: Active Protocol: Document 04/11/18 12:59 [facility] (Rec: 04/11/18 13:12 [facility] [id number]) Cardio Equipment Recumbent Elliptical (Biodex) Duration (Minutes) 7 Resistance 1 Lymphedema Treatment Manual Lymphatic Drainage Location edith LE's left greater than right Comments Cetaphil lotion applied to bilateral LE's. MLD to edith LE for edema reduction. Sequential Lymphedema Exercises Location edith LE's Comments 5 reps ea, supine PT-OP-R Modalities Start: 03/21/18 13:01 Freq: Status: Active Protocol: Document 04/11/18 14:44 [facility] (Rec: 04/11/18 14:46 [facility] [id number]) Compression Pump Treatment Treatment Location Right Leg Pressure Amount (mmHg) (mmHG) 35 Inflation Time (Seconds) 30 Deflation Time (Seconds) 10 Treatment Duration (minutes) 15 Treatment Tolerance Good Left Leg Pressure Amount (mmHg) (mmHG) 35 Inflation Time (Seconds) 30 Deflation Time (Seconds) 10 Treatment Duration (minutes) 20 Treatment Tolerance Good Treatment Comments decreased circumferential measurements following pump PT-OP-T Assessment and Plan Start: 03/21/18 13:01 Freq: Status: Active Protocol: Document 04/11/18 12:59 [facility] (Rec: 04/11/18 13:12 [facility] [id number]) Physical Therapy Assessment Goals 4 Impairment activity tolerance, gait Short Term Goal (STG) Patient will be able to ambulate with FWW for at least 5 min without excess fatigue or pain STG Duration 4 wks Clicker Operator Goal (LTG) Patient will be able to ambulate for 15 min with FWW to as evidence of improved activity tolerance and mobility to increase her functional independence and safety in home and community. 3 Impairment weakness Short Term Goal (STG) Initiate LE strengthening exercises to improve strength and mobility. STG Duration 4 wks Clicker Operator Goal (LTG) Patient to demonstrate increase in LE strength to 4/5 throughout LTG Duration 3 months 2 Impairment Knowledge deficit Short Term Goal (STG) Patient to be instructed in self-MLD with adaptations, lymphedema precautions, sequential lymphedema exercises STG Duration 4 wks Clicker Operator Goal (LTG) Patient to be independent with all aspects of lymphedema self-management LTG Duration 3 months 1 Impairment edema bilateral LE's Short Term Goal (STG) Decrease lymphedema to stable level with no increase or decrease more than 1 cm over the course of 1 wk STG Duration 6 wks Clicker Operator Goal (LTG) Patient to be fit with appropriate compression garment for lymphedema management; need to evaluate current Circ-Aid and recommend additional Circ-Aid left knee to hip. May need to consider home lymhedema pump LTG Duration 3 months Assessment Summary Assessment Decreased circumferential measurements today, and noted further improvement after pneumatic pump. Patient has Circ Aid on order, should receive soon. Wound care following PT today. Physical Therapy Plan Frequency and Duration Frequency of Treatment 2x/Week Duration of Treatment 3 months Plan of Care Start Date 03/21/18 Plan of Care End Date 06/19/18 Therapeutic Interventions Therapeutic Interventions Gait Training Home Exercise Program Lymphedema Management Manual Therapy Patient/Caregiver Education Self-Care/Home Management Therapeutic Activities Therapeutic Exercises Modalities Vasopneumatic Devices Other Referrals/Consults Referrals/Consults Recommended Reports home pump wouldn't work due to her home set-up, refuses at this time. Next Visit Focus/Plan Next Note Type Treatment Note Next Visit Plan Continue lymphedema management .
--- NOTE | 2018-04-18 14:18 | PT.OTN ---
Current Diagnoses Lymphedema, not elsewhere classified (04/18/18) Physical Therapy Treatment Note PT-OP-A Visit Information Start: 03/21/18 13:01 Freq: Status: Active Protocol: Document 04/18/18 12:58 [facility] (Rec: 04/18/18 13:06 [facility] [id number]) Out-Patient Physical Therapy Visit Information Visit Information Visit Type Treatment Note Visit Start Time 13:00 Visit Stop Time 14:10 Total Visit Minutes 70 Visit Number 4/10 Number of SALES FLOOR MANAGER Visits 0 PT-OP-B Current Condition Start: 03/21/18 13:01 Freq: Status: Active Protocol: Document 03/21/18 13:00 [facility] (Rec: 03/21/18 16:53 [facility] [id number]) Current Condition History of Current Condition Onset Date 10+ years Current Complaints lymphedema, limited function bilateral LE's left greater than right. History of Current Condition Patient reports long history of lymphedema in LE's, several bouts of cellulitis including a recent hospitalization. Going to wound care department and having Home Health nursing for wounds on her left toes and lower leg (covered with dressings after wound care appointment today.) States she currently uses Tubigrip size G (in place from toes to knees) for compression; previously had custom-fit compression stockings which she stated were too tight and she cut them off and threw them away: I wouldn't try those again if God gave me the money to afford them. Has roll of size G Tubigrip at home, uses only to knee because won't fit upper leg. Reports prior use of compression pump, uncertain of effect. Wears Circ Aids from foot to knee but not wearing today. Refuses lymphedema wrapping again due to prior poor experience per her report. Has never worn compression above her knee. Reports low activity level with use of FWW. Spends most of her day sitting in chair. Prior Functional Status Baseline Function- ADL's Modified Independent Baseline Function- Mobility Modified Independent Baseline Function- Gait Uses FWW Current Functional Impairments (Reported) Functional Limitations- ADL's Needs assist Functional Limitations- Mobility/Gait Modified independent, slow, painful Personal Factors Other Personal Factors That May Effect Low activity level, resistance Therapy/Recovery to compression stockings. PT-OP-C Subjective Start: 03/21/18 13:01 Freq: Status: Active Protocol: Document 04/18/18 12:58 [facility] (Rec: 04/18/18 13:06 [facility] [id number]) OP-PT Subjective Patient Comments Patient Comments No Circ Aids yet though states something came in the mail today right before she left. States she feels her legs are a little smaller PT-OP-G Mobility & Gait Start: 03/21/18 13:01 Freq: Status: Active Protocol: Document 03/21/18 13:00 [facility] (Rec: 03/25/18 09:06 [facility] [id number]) OP Gait Assessment Gait Gait Assistance Required: Standby Assistance Distance (Feet) 60 Assistive Devices Assistive Device Front Wheeled Walker Gait Deviations General Gait Pattern Antalgic Decreased Stride Length Decreased Feet Clearance Flexed Trunk Comments Gait Comments Limited by edema, pain, deconditioning PT-OP-J Posture/Palpation/Skin Start: 03/21/18 13:01 Freq: Status: Active Protocol: Document 03/21/18 13:00 [facility] (Rec: 03/25/18 09:06 [facility] [id number]) Palpation Assessment Location LE's Palpation Findings Edema Palpation Details reddening and fibrosis of tissue bilateral lower legs knees to ankles. No reddening or fibrosis from knees proximal. Skin Assessment Edema Assessment Bilateral Leg Edema Appearance Dimpled Discolored Firm Open Sores Taut Subjective Edema Description Pain Tightness Other Assessments Skin Assessment Comments see photos in chart PT-OP-K Range of Motion Start: 03/21/18 13:01 Freq: Status: Active Protocol: Document 03/21/18 13:00 [facility] (Rec: 03/25/18 09:06 [facility] [id number]) Hip Goniometric Range of Motion Hip ROM Limitations Comments Moderate decrease due to weakness and swelling Knee Goniometric Range of Motion Knee ROM Limitations Knee ROM Limitations Soft Tissue Tightness Muscle Weakness Swelling Ankle and Foot Goniometric Range of Motion Ankle and Foot ROM Limitations ROM Limitations Soft Tissue Tightness Comments minimal edema in feet PT-OP-M Strength Start: 03/21/18 13:01 Freq: Status: Active Protocol: Document 03/21/18 13:00 [facility] (Rec: 03/25/18 09:06 [facility] [id number]) Hip Strength Hip Manual Muscle Testing edith Comments grossly 2/5 throughout Knee Strength Knee Manual Muscle Testing bilateral Comments grossly 3+/5 throughout Ankle/Foot Strength Ankle and Foot Manual Muscle Testing bilateral Comments 4/5 throughout PT-OP-N Lymphedema Start: 03/21/18 13:01 Freq: Status: Active Protocol: Document 03/21/18 13:00 [facility] (Rec: 03/25/18 09:06 [facility] [id number]) Lymphedema Measurements Lower Extremity Circumference Measurements Left Affected Medial Malleolus 31.9 cm 10 cm From Medial Malleolus 28.1 cm 20 cm From Medial Malleolus 33.2 cm 30 cm From Medial Malleolus 59.2 cm 40 cm From Medial Malleolus 67.1 cm 50 cm From Medial Malleolus 73.4 cm 60 cm From Medial Malleolus 74.1 cm Right Affected MT Heads 25.3 cm Medial Malleolus 31.8 cm 10 cm From Medial Malleolus 30.7 cm 20 cm From Medial Malleolus 44.9 cm 30 cm From Medial Malleolus 54.3 cm 40 cm From Medial Malleolus 67.6 cm 50 cm From Medial Malleolus 72.2 cm 60 cm From Medial Malleolus 67.6 cm Comments Lymphedema Comments see photos in chart. Left MTP measurement not taken due to thick dressing. PT-OP-Q Treatments Start: 03/21/18 13:01 Freq: Status: Active Protocol: Document 04/18/18 12:58 [facility] (Rec: 04/18/18 13:06 [facility] [id number]) Cardio Equipment Recumbent Elliptical ([employer]) Duration (Minutes) 8 Resistance 1 Lymphedema Treatment Manual Lymphatic Drainage Location edith LE's left greater than right Comments Cetaphil lotion applied to bilateral LE's. MLD to edith LE for edema reduction. Sequential Lymphedema Exercises Location edith LE's Comments 5 reps ea, supine PT-OP-R Modalities Start: 03/21/18 13:01 Freq: Status: Active Protocol: Document 04/18/18 12:58 [facility] (Rec: 04/18/18 14:13 [facility] [id number]) Compression Pump Treatment Treatment Location Right Leg Pressure Amount (mmHg) (mmHG) 35 Inflation Time (Seconds) 30 Deflation Time (Seconds) 10 Treatment Duration (minutes) 15 Treatment Tolerance Good Left Leg Pressure Amount (mmHg) (mmHG) 35 Inflation Time (Seconds) 30 Deflation Time (Seconds) 10 Treatment Duration (minutes) 20 Treatment Tolerance Good Treatment Comments decreased circumferential measurements following pump PT-OP-T Assessment and Plan Start: 03/21/18 13:01 Freq: Status: Active Protocol: Document 04/18/18 12:58 [facility] (Rec: 04/18/18 13:06 [facility] [id number]) Physical Therapy Assessment Goals 4 Impairment activity tolerance, gait Short Term Goal (STG) Patient will be able to ambulate with FWW for at least 5 min without excess fatigue or pain STG Duration 4 wks Pulmonologist/Intensivist Goal (LTG) Patient will be able to ambulate for 15 min with FWW to as evidence of improved activity tolerance and mobility to increase her functional independence and safety in home and community. 3 Impairment weakness Short Term Goal (STG) Initiate LE strengthening exercises to improve strength and mobility. STG Duration 4 wks Fpc Goal (LTG) Patient to demonstrate increase in LE strength to 4/5 throughout LTG Duration 3 months 2 Impairment Knowledge deficit Short Term Goal (STG) Patient to be instructed in self-MLD with adaptations, lymphedema precautions, sequential lymphedema exercises STG Duration 4 wks Fpc Goal (LTG) Patient to be independent with all aspects of lymphedema self-management LTG Duration 3 months 1 Impairment edema bilateral LE's Short Term Goal (STG) Decrease lymphedema to stable level with no increase or decrease more than 1 cm over the course of 1 wk STG Duration 6 wks Fpc Goal (LTG) Patient to be fit with appropriate compression garment for lymphedema management; need to evaluate current Circ-Aid and recommend additional Circ-Aid left knee to hip. May need to consider home lymhedema pump LTG Duration 3 months Physical Therapy Plan Frequency and Duration Frequency of Treatment 2x/Week Duration of Treatment 3 months Plan of Care Start Date 03/21/18 Plan of Care End Date 06/19/18 Therapeutic Interventions Therapeutic Interventions Gait Training Home Exercise Program Lymphedema Management Manual Therapy Patient/Caregiver Education Self-Care/Home Management Therapeutic Activities Therapeutic Exercises Modalities Vasopneumatic Devices Next Visit Focus/Plan Next Note Type Treatment Note
--- NOTE | 2018-04-25 14:42 | PT.OTN ---
Current Diagnoses Lymphedema, not elsewhere classified (04/25/18) Physical Therapy Treatment Note PT-OP-A Visit Information Start: 03/21/18 13:01 Freq: Status: Active Protocol: Document 04/25/18 13:01 [facility] (Rec: 04/25/18 13:15 [facility] [id number]) Out-Patient Physical Therapy Visit Information Visit Information Visit Type Treatment Note Visit Start Time 13:00 Visit Stop Time 14:10 Total Visit Minutes 75 Visit Number 5/10 Number of DRAFTER SEISMOGRAPH Visits 0 PT-OP-B Current Condition Start: 03/21/18 13:01 Freq: Status: Active Protocol: Document 03/21/18 13:00 [facility] (Rec: 03/21/18 16:53 [facility] [id number]) Current Condition History of Current Condition Onset Date 10+ years Current Complaints lymphedema, limited function bilateral LE's left greater than right. History of Current Condition Patient reports long history of lymphedema in LE's, several bouts of cellulitis including a recent hospitalization. Going to wound care department and having Home Health nursing for wounds on her left toes and lower leg (covered with dressings after wound care appointment today.) States she currently uses Tubigrip size G (in place from toes to knees) for compression; previously had custom-fit compression stockings which she stated were too tight and she cut them off and threw them away: I wouldn't try those again if God gave me the money to afford them. Has roll of size G Tubigrip at home, uses only to knee because won't fit upper leg. Reports prior use of compression pump, uncertain of effect. Wears Circ Aids from foot to knee but not wearing today. Refuses lymphedema wrapping again due to prior poor experience per her report. Has never worn compression above her knee. Reports low activity level with use of FWW. Spends most of her day sitting in chair. Prior Functional Status Baseline Function- ADL's Modified Independent Baseline Function- Mobility Modified Independent Baseline Function- Gait Uses FWW Current Functional Impairments (Reported) Functional Limitations- ADL's Needs assist Functional Limitations- Mobility/Gait Modified independent, slow, painful Personal Factors Other Personal Factors That May Effect Low activity level, resistance Therapy/Recovery to compression stockings. PT-OP-C Subjective Start: 03/21/18 13:01 Freq: Status: Active Protocol: Document 04/25/18 13:01 [facility] (Rec: 04/25/18 13:15 [facility] [id number]) OP-PT Subjective Patient Comments Patient Comments States she thinks what came in the mail wrong item; brought to therapy. PT-OP-G Mobility & Gait Start: 03/21/18 13:01 Freq: Status: Active Protocol: Document 03/21/18 13:00 [facility] (Rec: 03/25/18 09:06 [facility] [id number]) OP Gait Assessment Gait Gait Assistance Required: Standby Assistance Distance (Feet) 60 Assistive Devices Assistive Device Front Wheeled Walker Gait Deviations General Gait Pattern Antalgic Decreased Stride Length Decreased Feet Clearance Flexed Trunk Comments Gait Comments Limited by edema, pain, deconditioning PT-OP-J Posture/Palpation/Skin Start: 03/21/18 13:01 Freq: Status: Active Protocol: Document 03/21/18 13:00 [facility] (Rec: 03/25/18 09:06 [facility] [id number]) Palpation Assessment Location LE's Palpation Findings Edema Palpation Details reddening and fibrosis of tissue bilateral lower legs knees to ankles. No reddening or fibrosis from knees proximal. Skin Assessment Edema Assessment Bilateral Leg Edema Appearance Dimpled Discolored Firm Open Sores Taut Subjective Edema Description Pain Tightness Other Assessments Skin Assessment Comments see photos in chart PT-OP-K Range of Motion Start: 03/21/18 13:01 Freq: Status: Active Protocol: Document 03/21/18 13:00 [facility] (Rec: 03/25/18 09:06 [facility] [id number]) Hip Goniometric Range of Motion Hip ROM Limitations Comments Moderate decrease due to weakness and swelling Knee Goniometric Range of Motion Knee ROM Limitations Knee ROM Limitations Soft Tissue Tightness Muscle Weakness Swelling Ankle and Foot Goniometric Range of Motion Ankle and Foot ROM Limitations ROM Limitations Soft Tissue Tightness Comments minimal edema in feet PT-OP-M Strength Start: 03/21/18 13:01 Freq: Status: Active Protocol: Document 03/21/18 13:00 [facility] (Rec: 03/25/18 09:06 [facility] [id number]) Hip Strength Hip Manual Muscle Testing edith Comments grossly 2/5 throughout Knee Strength Knee Manual Muscle Testing bilateral Comments grossly 3+/5 throughout Ankle/Foot Strength Ankle and Foot Manual Muscle Testing bilateral Comments 4/5 throughout PT-OP-N Lymphedema Start: 03/21/18 13:01 Freq: Status: Active Protocol: Document 03/21/18 13:00 [facility] (Rec: 03/25/18 09:06 [facility] [id number]) Lymphedema Measurements Lower Extremity Circumference Measurements Left Affected Medial Malleolus 31.9 cm 10 cm From Medial Malleolus 28.1 cm 20 cm From Medial Malleolus 33.2 cm 30 cm From Medial Malleolus 59.2 cm 40 cm From Medial Malleolus 67.1 cm 50 cm From Medial Malleolus 73.4 cm 60 cm From Medial Malleolus 74.1 cm Right Affected MT Heads 25.3 cm Medial Malleolus 31.8 cm 10 cm From Medial Malleolus 30.7 cm 20 cm From Medial Malleolus 44.9 cm 30 cm From Medial Malleolus 54.3 cm 40 cm From Medial Malleolus 67.6 cm 50 cm From Medial Malleolus 72.2 cm 60 cm From Medial Malleolus 67.6 cm Comments Lymphedema Comments see photos in chart. Left MTP measurement not taken due to thick dressing. PT-OP-Q Treatments Start: 03/21/18 13:01 Freq: Status: Active Protocol: Document 04/25/18 13:01 [facility] (Rec: 04/25/18 13:15 [facility] [id number]) Cardio Equipment Recumbent Elliptical ([employer]) Duration (Minutes) 10 Resistance 1 Lymphedema Treatment Manual Lymphatic Drainage Location edith LE's left greater than right Comments Cetaphil lotion applied to bilateral LE's. MLD to edith LE for edema reduction. Lymphedema Wrapping Body Location edith thighs Materials Tubigrip size J on calves and thighs, size F on feet Sequential Lymphedema Exercises Location edith LE's Comments 5 reps ea, supine PT-OP-R Modalities Start: 03/21/18 13:01 Freq: Status: Active Protocol: Document 04/25/18 13:01 [facility] (Rec: 04/25/18 13:15 [facility] [id number]) Compression Pump Treatment Treatment Location Right Leg Pressure Amount (mmHg) (mmHG) 35 Inflation Time (Seconds) 30 Deflation Time (Seconds) 10 Treatment Duration (minutes) 15 Treatment Tolerance Good Left Leg Pressure Amount (mmHg) (mmHG) 35 Inflation Time (Seconds) 30 Deflation Time (Seconds) 10 Treatment Duration (minutes) 20 Treatment Tolerance Good Treatment Comments decreased circumferential measurements following pump PT-OP-T Assessment and Plan Start: 03/21/18 13:01 Freq: Status: Active Protocol: Document 04/25/18 13:01 [facility] (Rec: 04/25/18 13:15 [facility] [id number]) Physical Therapy Assessment Goals 4 Impairment activity tolerance, gait Short Term Goal (STG) Patient will be able to ambulate with FWW for at least 5 min without excess fatigue or pain STG Duration 4 wks Manager Rn Goal (LTG) Patient will be able to ambulate for 15 min with FWW to as evidence of improved activity tolerance and mobility to increase her functional independence and safety in home and community. 3 Impairment weakness Short Term Goal (STG) Initiate LE strengthening exercises to improve strength and mobility. STG Duration 4 wks Long-Term Goal (LTG) Patient to demonstrate increase in LE strength to 4/5 throughout LTG Duration 3 months 2 Impairment Knowledge deficit Short Term Goal (STG) Patient to be instructed in self-MLD with adaptations, lymphedema precautions, sequential lymphedema exercises STG Duration 4 wks Manager Rn Goal (LTG) Patient to be independent with all aspects of lymphedema self-management LTG Duration 3 months 1 Impairment edema bilateral LE's Short Term Goal (STG) Decrease lymphedema to stable level with no increase or decrease more than 1 cm over the course of 1 wk STG Duration 6 wks Long-Term Goal (LTG) Patient to be fit with appropriate compression garment for lymphedema management; need to evaluate current Circ-Aid and recommend additional Circ-Aid left knee to hip. May need to consider home lymhedema pump LTG Duration 3 months Physical Therapy Plan Frequency and Duration Frequency of Treatment 2x/Week Duration of Treatment 3 months Plan of Care Start Date 03/21/18 Plan of Care End Date 06/19/18 Therapeutic Interventions Therapeutic Interventions Gait Training Home Exercise Program Lymphedema Management Manual Therapy Patient/Caregiver Education Self-Care/Home Management Therapeutic Activities Therapeutic Exercises Modalities Vasopneumatic Devices Next Visit Focus/Plan Next Note Type Treatment Note
--- NOTE | 2018-05-02 14:35 | PT.OTN ---
Current Diagnoses Lymphedema, not elsewhere classified (05/02/18) Physical Therapy Treatment Note PT-OP-A Visit Information Start: 03/21/18 13:01 Freq: Status: Active Protocol: Document 05/02/18 14:27 [facility] (Rec: 05/02/18 14:35 [facility] [id number]) Out-Patient Physical Therapy Visit Information Visit Information Visit Type Treatment Note Visit Start Time 13:00 Visit Stop Time 14:10 Total Visit Minutes 75 Visit Number 6/10 Number of PEDICURIST Visits 0 PT-OP-B Current Condition Start: 03/21/18 13:01 Freq: Status: Active Protocol: Document 03/21/18 13:00 [facility] (Rec: 03/21/18 16:53 [facility] [id number]) Current Condition History of Current Condition Onset Date 10+ years Current Complaints lymphedema, limited function bilateral LE's left greater than right. History of Current Condition Patient reports long history of lymphedema in LE's, several bouts of cellulitis including a recent hospitalization. Going to wound care department and having Home Health nursing for wounds on her left toes and lower leg (covered with dressings after wound care appointment today.) States she currently uses Tubigrip size G (in place from toes to knees) for compression; previously had custom-fit compression stockings which she stated were too tight and she cut them off and threw them away: I wouldn't try those again if God gave me the money to afford them. Has roll of size G Tubigrip at home, uses only to knee because won't fit upper leg. Reports prior use of compression pump, uncertain of effect. Wears Circ Aids from foot to knee but not wearing today. Refuses lymphedema wrapping again due to prior poor experience per her report. Has never worn compression above her knee. Reports low activity level with use of FWW. Spends most of her day sitting in chair. Prior Functional Status Baseline Function- ADL's Modified Independent Baseline Function- Mobility Modified Independent Baseline Function- Gait Uses FWW Current Functional Impairments (Reported) Functional Limitations- ADL's Needs assist Functional Limitations- Mobility/Gait Modified independent, slow, painful Personal Factors Other Personal Factors That May Effect Low activity level, resistance Therapy/Recovery to compression stockings. PT-OP-C Subjective Start: 03/21/18 13:01 Freq: Status: Active Protocol: Document 05/02/18 14:27 [facility] (Rec: 05/02/18 14:35 [facility] [id number]) OP-PT Subjective Patient Comments Patient Comments No new c/o, feels she is gradually getting better. States Tubigrip doesn't stay up on thighs PT-OP-G Mobility & Gait Start: 03/21/18 13:01 Freq: Status: Active Protocol: Document 03/21/18 13:00 [facility] (Rec: 03/25/18 09:06 [facility] [id number]) OP Gait Assessment Gait Gait Assistance Required: Standby Assistance Distance (Feet) 60 Assistive Devices Assistive Device Front Wheeled Walker Gait Deviations General Gait Pattern Antalgic Decreased Stride Length Decreased Feet Clearance Flexed Trunk Comments Gait Comments Limited by edema, pain, deconditioning PT-OP-J Posture/Palpation/Skin Start: 03/21/18 13:01 Freq: Status: Active Protocol: Document 03/21/18 13:00 [facility] (Rec: 03/25/18 09:06 [facility] [id number]) Palpation Assessment Location LE's Palpation Findings Edema Palpation Details reddening and fibrosis of tissue bilateral lower legs knees to ankles. No reddening or fibrosis from knees proximal. Skin Assessment Edema Assessment Bilateral Leg Edema Appearance Dimpled Discolored Firm Open Sores Taut Subjective Edema Description Pain Tightness Other Assessments Skin Assessment Comments see photos in chart PT-OP-K Range of Motion Start: 03/21/18 13:01 Freq: Status: Active Protocol: Document 03/21/18 13:00 [facility] (Rec: 03/25/18 09:06 [facility] [id number]) Hip Goniometric Range of Motion Hip ROM Limitations Comments Moderate decrease due to weakness and swelling Knee Goniometric Range of Motion Knee ROM Limitations Knee ROM Limitations Soft Tissue Tightness Muscle Weakness Swelling Ankle and Foot Goniometric Range of Motion Ankle and Foot ROM Limitations ROM Limitations Soft Tissue Tightness Comments minimal edema in feet PT-OP-M Strength Start: 03/21/18 13:01 Freq: Status: Active Protocol: Document 03/21/18 13:00 [facility] (Rec: 03/25/18 09:06 [facility] [id number]) Hip Strength Hip Manual Muscle Testing edith Comments grossly 2/5 throughout Knee Strength Knee Manual Muscle Testing bilateral Comments grossly 3+/5 throughout Ankle/Foot Strength Ankle and Foot Manual Muscle Testing bilateral Comments 4/5 throughout PT-OP-N Lymphedema Start: 03/21/18 13:01 Freq: Status: Active Protocol: Document 03/21/18 13:00 [facility] (Rec: 03/25/18 09:06 [facility] [id number]) Lymphedema Measurements Lower Extremity Circumference Measurements Left Affected Medial Malleolus 31.9 cm 10 cm From Medial Malleolus 28.1 cm 20 cm From Medial Malleolus 33.2 cm 30 cm From Medial Malleolus 59.2 cm 40 cm From Medial Malleolus 67.1 cm 50 cm From Medial Malleolus 73.4 cm 60 cm From Medial Malleolus 74.1 cm Right Affected MT Heads 25.3 cm Medial Malleolus 31.8 cm 10 cm From Medial Malleolus 30.7 cm 20 cm From Medial Malleolus 44.9 cm 30 cm From Medial Malleolus 54.3 cm 40 cm From Medial Malleolus 67.6 cm 50 cm From Medial Malleolus 72.2 cm 60 cm From Medial Malleolus 67.6 cm Comments Lymphedema Comments see photos in chart. Left MTP measurement not taken due to thick dressing. PT-OP-Q Treatments Start: 03/21/18 13:01 Freq: Status: Active Protocol: Document 05/02/18 14:27 [facility] (Rec: 05/02/18 14:35 [facility] [id number]) Cardio Equipment Recumbent Elliptical ([employer]) Duration (Minutes) 10 Resistance 1 Lymphedema Treatment Manual Lymphatic Drainage Location edith LE's left greater than right Comments Cetaphil lotion applied to bilateral LE's. MLD to edith LE for edema reduction. Lymphedema Wrapping Body Location edith thighs Materials Tubigrip size J on calves and thighs, size F on feet Sequential Lymphedema Exercises Location edith LE's Comments 5 reps ea, supine PT-OP-R Modalities Start: 03/21/18 13:01 Freq: Status: Active Protocol: Document 05/02/18 14:27 [facility] (Rec: 05/02/18 14:35 [facility] [id number]) Compression Pump Treatment Treatment Location Right Leg Pressure Amount (mmHg) (mmHG) 35 Inflation Time (Seconds) 30 Deflation Time (Seconds) 10 Treatment Duration (minutes) 15 Treatment Tolerance Good Left Leg Pressure Amount (mmHg) (mmHG) 35 Inflation Time (Seconds) 30 Deflation Time (Seconds) 10 Treatment Duration (minutes) 20 Treatment Tolerance Good Treatment Comments decreased circumferential measurements following pump PT-OP-T Assessment and Plan Start: 03/21/18 13:01 Freq: Status: Active Protocol: Document 05/02/18 14:27 [facility] (Rec: 05/02/18 14:35 [facility] [id number]) Physical Therapy Assessment Goals 4 Impairment activity tolerance, gait Short Term Goal (STG) Patient will be able to ambulate with FWW for at least 5 min without excess fatigue or pain STG Duration 4 wks Wellness Educator Goal (LTG) Patient will be able to ambulate for 15 min with FWW to as evidence of improved activity tolerance and mobility to increase her functional independence and safety in home and community. 3 Impairment weakness Short Term Goal (STG) Initiate LE strengthening exercises to improve strength and mobility. STG Duration 4 wks Wellness Educator Goal (LTG) Patient to demonstrate increase in LE strength to 4/5 throughout LTG Duration 3 months 2 Impairment Knowledge deficit Short Term Goal (STG) Patient to be instructed in self-MLD with adaptations, lymphedema precautions, sequential lymphedema exercises STG Duration 4 wks Intermediate Goal (LTG) Patient to be independent with all aspects of lymphedema self-management LTG Duration 3 months 1 Impairment edema bilateral LE's Short Term Goal (STG) Decrease lymphedema to stable level with no increase or decrease more than 1 cm over the course of 1 wk STG Duration 6 wks Wellness Educator Goal (LTG) Patient to be fit with appropriate compression garment for lymphedema management; need to evaluate current Circ-Aid and recommend additional Circ-Aid left knee to hip. May need to consider home lymhedema pump LTG Duration 3 months Assessment Summary Assessment Measurements variable today; some increased, some decreased (see paper chart) Most significant decrease was right calf. Physical Therapy Plan Frequency and Duration Frequency of Treatment 2x/Week Duration of Treatment 3 months Plan of Care Start Date 03/21/18 Plan of Care End Date 06/19/18 Therapeutic Interventions Therapeutic Interventions Gait Training Home Exercise Program Lymphedema Management Manual Therapy Patient/Caregiver Education Self-Care/Home Management Therapeutic Activities Therapeutic Exercises Modalities Vasopneumatic Devices Next Visit Focus/Plan Next Note Type Treatment Note Next Visit Plan Continue lymphedema management . Assure good fit of Circ Aids when obtains.
--- NOTE | 2018-05-09 14:30 | PT.OTN ---
Current Diagnoses Lymphedema, not elsewhere classified (05/09/18) Physical Therapy Treatment Note PT-OP-A Visit Information Start: 03/21/18 13:01 Freq: Status: Active Protocol: Document 05/09/18 12:58 [facility] (Rec: 05/09/18 13:18 [facility] [id number]) Out-Patient Physical Therapy Visit Information Visit Information Visit Type Treatment Note Visit Start Time 13:00 Visit Stop Time 14:10 Total Visit Minutes 75 Visit Number 7/10 Number of [employer] SWITCHBOARD OPERATOR Visits 0 Evaluation Information Evaluation Date 03/21/18 PT-OP-B Current Condition Start: 03/21/18 13:01 Freq: Status: Active Protocol: Document 03/21/18 13:00 [facility] (Rec: 03/21/18 16:53 [facility] [id number]) Current Condition History of Current Condition Onset Date 10+ years Current Complaints lymphedema, limited function bilateral LE's left greater than right. History of Current Condition Patient reports long history of lymphedema in LE's, several bouts of cellulitis including a recent hospitalization. Going to wound care department and having Home Health nursing for wounds on her left toes and lower leg (covered with dressings after wound care appointment today.) States she currently uses Tubigrip size G (in place from toes to knees) for compression; previously had custom-fit compression stockings which she stated were too tight and she cut them off and threw them away: I wouldn't try those again if God gave me the money to afford them. Has roll of size G Tubigrip at home, uses only to knee because won't fit upper leg. Reports prior use of compression pump, uncertain of effect. Wears Circ Aids from foot to knee but not wearing today. Refuses lymphedema wrapping again due to prior poor experience per her report. Has never worn compression above her knee. Reports low activity level with use of FWW. Spends most of her day sitting in chair. Prior Functional Status Baseline Function- ADL's Modified Independent Baseline Function- Mobility Modified Independent Baseline Function- Gait Uses FWW Current Functional Impairments (Reported) Functional Limitations- ADL's Needs assist Functional Limitations- Mobility/Gait Modified independent, slow, painful Personal Factors Other Personal Factors That May Effect Low activity level, resistance Therapy/Recovery to compression stockings. PT-OP-C Subjective Start: 03/21/18 13:01 Freq: Status: Active Protocol: Document 05/09/18 12:58 [facility] (Rec: 05/09/18 13:18 [facility] [id number]) OP-PT Subjective Patient Comments Patient Comments No new c/o PT-OP-G Mobility & Gait Start: 03/21/18 13:01 Freq: Status: Active Protocol: Document 03/21/18 13:00 [facility] (Rec: 03/25/18 09:06 [facility] [id number]) OP Gait Assessment Gait Gait Assistance Required: Standby Assistance Distance (Feet) 60 Assistive Devices Assistive Device Front Wheeled Walker Gait Deviations General Gait Pattern Antalgic Decreased Stride Length Decreased Feet Clearance Flexed Trunk Comments Gait Comments Limited by edema, pain, deconditioning PT-OP-J Posture/Palpation/Skin Start: 03/21/18 13:01 Freq: Status: Active Protocol: Document 03/21/18 13:00 [facility] (Rec: 03/25/18 09:06 [facility] [id number]) Palpation Assessment Location LE's Palpation Findings Edema Palpation Details reddening and fibrosis of tissue bilateral lower legs knees to ankles. No reddening or fibrosis from knees proximal. Skin Assessment Edema Assessment Bilateral Leg Edema Appearance Dimpled Discolored Firm Open Sores Taut Subjective Edema Description Pain Tightness Other Assessments Skin Assessment Comments see photos in chart PT-OP-K Range of Motion Start: 03/21/18 13:01 Freq: Status: Active Protocol: Document 03/21/18 13:00 [facility] (Rec: 03/25/18 09:06 [facility] [id number]) Hip Goniometric Range of Motion Hip ROM Limitations Comments Moderate decrease due to weakness and swelling Knee Goniometric Range of Motion Knee ROM Limitations Knee ROM Limitations Soft Tissue Tightness Muscle Weakness Swelling Ankle and Foot Goniometric Range of Motion Ankle and Foot ROM Limitations ROM Limitations Soft Tissue Tightness Comments minimal edema in feet PT-OP-M Strength Start: 03/21/18 13:01 Freq: Status: Active Protocol: Document 03/21/18 13:00 [facility] (Rec: 03/25/18 09:06 [facility] [id number]) Hip Strength Hip Manual Muscle Testing edith Comments grossly 2/5 throughout Knee Strength Knee Manual Muscle Testing bilateral Comments grossly 3+/5 throughout Ankle/Foot Strength Ankle and Foot Manual Muscle Testing bilateral Comments 4/5 throughout PT-OP-N Lymphedema Start: 03/21/18 13:01 Freq: Status: Active Protocol: Document 03/21/18 13:00 [facility] (Rec: 03/25/18 09:06 [facility] [id number]) Lymphedema Measurements Lower Extremity Circumference Measurements Left Affected Medial Malleolus 31.9 cm 10 cm From Medial Malleolus 28.1 cm 20 cm From Medial Malleolus 33.2 cm 30 cm From Medial Malleolus 59.2 cm 40 cm From Medial Malleolus 67.1 cm 50 cm From Medial Malleolus 73.4 cm 60 cm From Medial Malleolus 74.1 cm Right Affected MT Heads 25.3 cm Medial Malleolus 31.8 cm 10 cm From Medial Malleolus 30.7 cm 20 cm From Medial Malleolus 44.9 cm 30 cm From Medial Malleolus 54.3 cm 40 cm From Medial Malleolus 67.6 cm 50 cm From Medial Malleolus 72.2 cm 60 cm From Medial Malleolus 67.6 cm Comments Lymphedema Comments see photos in chart. Left MTP measurement not taken due to thick dressing. PT-OP-Q Treatments Start: 03/21/18 13:01 Freq: Status: Active Protocol: Document 05/09/18 12:58 [facility] (Rec: 05/09/18 13:18 [facility] [id number]) Cardio Equipment Recumbent Elliptical ([employer]) Duration (Minutes) 10 Resistance 1 Lymphedema Treatment Manual Lymphatic Drainage Location edith LE's left greater than right Comments Cetaphil lotion applied to bilateral LE's. MLD to edith LE for edema reduction. Lymphedema Wrapping Body Location edith thighs Materials Tubigrip size g on calves and thighs, size F on feet Sequential Lymphedema Exercises Location edith LE's Comments 5 reps ea, supine PT-OP-R Modalities Start: 03/21/18 13:01 Freq: Status: Active Protocol: Document 05/09/18 12:58 [facility] (Rec: 05/09/18 14:30 [facility] [id number]) Compression Pump Treatment Treatment Location Right Leg Pressure Amount (mmHg) (mmHG) 35 Inflation Time (Seconds) 30 Deflation Time (Seconds) 10 Treatment Duration (minutes) 15 Treatment Tolerance Good Left Leg Pressure Amount (mmHg) (mmHG) 35 Inflation Time (Seconds) 30 Deflation Time (Seconds) 10 Treatment Duration (minutes) 20 Treatment Tolerance Good Treatment Comments decreased circumferential measurements following pump PT-OP-T Assessment and Plan Start: 03/21/18 13:01 Freq: Status: Active Protocol: Document 05/09/18 12:58 [facility] (Rec: 05/09/18 14:30 [facility] [id number]) Physical Therapy Assessment Goals 4 Impairment activity tolerance, gait Short Term Goal (STG) Patient will be able to ambulate with FWW for at least 5 min without excess fatigue or pain STG Duration 4 wks Kelp Cutter Goal (LTG) Patient will be able to ambulate for 15 min with FWW to as evidence of improved activity tolerance and mobility to increase her functional independence and safety in home and community. 3 Impairment weakness Short Term Goal (STG) Initiate LE strengthening exercises to improve strength and mobility. STG Duration 4 wks Long-Term Goal (LTG) Patient to demonstrate increase in LE strength to 4/5 throughout LTG Duration 3 months 2 Impairment Knowledge deficit Short Term Goal (STG) Patient to be instructed in self-MLD with adaptations, lymphedema precautions, sequential lymphedema exercises STG Duration 4 wks Kelp Cutter Goal (LTG) Patient to be independent with all aspects of lymphedema self-management LTG Duration 3 months 1 Impairment edema bilateral LE's Short Term Goal (STG) Decrease lymphedema to stable level with no increase or decrease more than 1 cm over the course of 1 wk STG Duration 6 wks Kelp Cutter Goal (LTG) Patient to be fit with appropriate compression garment for lymphedema management; need to evaluate current Circ-Aid and recommend additional Circ-Aid left knee to hip. May need to consider home lymhedema pump LTG Duration 3 months Assessment Summary Assessment Decrease in measurements after treatment Physical Therapy Plan Frequency and Duration Frequency of Treatment 2x/Week Duration of Treatment 3 months Plan of Care Start Date 03/21/18 Plan of Care End Date 06/19/18 Therapeutic Interventions Therapeutic Interventions Gait Training Home Exercise Program Lymphedema Management Manual Therapy Patient/Caregiver Education Self-Care/Home Management Therapeutic Activities Therapeutic Exercises Modalities Vasopneumatic Devices Next Visit Focus/Plan Next Note Type Treatment Note Next Visit Plan Continue lymphedema management . Assure good fit of Circ Aids when obtains.
--- NOTE | 2018-05-16 14:18 | PT.OTN ---
Current Diagnoses Lymphedema, not elsewhere classified (05/16/18) Physical Therapy Treatment Note PT-OP-A Visit Information Start: 03/21/18 13:01 Freq: Status: Active Protocol: Document 05/16/18 13:18 [facility] (Rec: 05/16/18 14:18 [facility] [id number]) Out-Patient Physical Therapy Visit Information Visit Information Visit Type Treatment Note Visit Start Time 13:00 Visit Stop Time 14:05 Total Visit Minutes 65 Visit Number 8/10 Number of RECREATIONAL AIDE Visits 0 Evaluation Information Evaluation Date 03/21/18 PT-OP-B Current Condition Start: 03/21/18 13:01 Freq: Status: Active Protocol: Document 03/21/18 13:00 [facility] (Rec: 03/21/18 16:53 [facility] [id number]) Current Condition History of Current Condition Onset Date 10+ years Current Complaints lymphedema, limited function bilateral LE's left greater than right. History of Current Condition Patient reports long history of lymphedema in LE's, several bouts of cellulitis including a recent hospitalization. Going to wound care department and having Home Health nursing for wounds on her left toes and lower leg (covered with dressings after wound care appointment today.) States she currently uses Tubigrip size G (in place from toes to knees) for compression; previously had custom-fit compression stockings which she stated were too tight and she cut them off and threw them away: I wouldn't try those again if God gave me the money to afford them. Has roll of size G Tubigrip at home, uses only to knee because won't fit upper leg. Reports prior use of compression pump, uncertain of effect. Wears Circ Aids from foot to knee but not wearing today. Refuses lymphedema wrapping again due to prior poor experience per her report. Has never worn compression above her knee. Reports low activity level with use of FWW. Spends most of her day sitting in chair. Prior Functional Status Baseline Function- ADL's Modified Independent Baseline Function- Mobility Modified Independent Baseline Function- Gait Uses FWW Current Functional Impairments (Reported) Functional Limitations- ADL's Needs assist Functional Limitations- Mobility/Gait Modified independent, slow, painful Personal Factors Other Personal Factors That May Effect Low activity level, resistance Therapy/Recovery to compression stockings. PT-OP-C Subjective Start: 03/21/18 13:01 Freq: Status: Active Protocol: Document 05/16/18 13:18 [facility] (Rec: 05/16/18 14:18 [facility] [id number]) OP-PT Subjective Patient Comments Patient Comments Reports wrap applied at wound care last week slid down and she didn't notice at first, caused an increase in swelling left lower leg, she states she cut the wrap off at home PT-OP-G Mobility & Gait Start: 03/21/18 13:01 Freq: Status: Active Protocol: Document 03/21/18 13:00 [facility] (Rec: 03/25/18 09:06 [facility] [id number]) OP Gait Assessment Gait Gait Assistance Required: Standby Assistance Distance (Feet) 60 Assistive Devices Assistive Device Front Wheeled Walker Gait Deviations General Gait Pattern Antalgic Decreased Stride Length Decreased Feet Clearance Flexed Trunk Comments Gait Comments Limited by edema, pain, deconditioning PT-OP-J Posture/Palpation/Skin Start: 03/21/18 13:01 Freq: Status: Active Protocol: Document 03/21/18 13:00 [facility] (Rec: 03/25/18 09:06 [facility] [id number]) Palpation Assessment Location LE's Palpation Findings Edema Palpation Details reddening and fibrosis of tissue bilateral lower legs knees to ankles. No reddening or fibrosis from knees proximal. Skin Assessment Edema Assessment Bilateral Leg Edema Appearance Dimpled Discolored Firm Open Sores Taut Subjective Edema Description Pain Tightness Other Assessments Skin Assessment Comments see photos in chart PT-OP-K Range of Motion Start: 03/21/18 13:01 Freq: Status: Active Protocol: Document 03/21/18 13:00 [facility] (Rec: 03/25/18 09:06 [facility] [id number]) Hip Goniometric Range of Motion Hip ROM Limitations Comments Moderate decrease due to weakness and swelling Knee Goniometric Range of Motion Knee ROM Limitations Knee ROM Limitations Soft Tissue Tightness Muscle Weakness Swelling Ankle and Foot Goniometric Range of Motion Ankle and Foot ROM Limitations ROM Limitations Soft Tissue Tightness Comments minimal edema in feet PT-OP-M Strength Start: 03/21/18 13:01 Freq: Status: Active Protocol: Document 03/21/18 13:00 [facility] (Rec: 03/25/18 09:06 [facility] [id number]) Hip Strength Hip Manual Muscle Testing edith Comments grossly 2/5 throughout Knee Strength Knee Manual Muscle Testing bilateral Comments grossly 3+/5 throughout Ankle/Foot Strength Ankle and Foot Manual Muscle Testing bilateral Comments 4/5 throughout PT-OP-N Lymphedema Start: 03/21/18 13:01 Freq: Status: Active Protocol: Document 03/21/18 13:00 [facility] (Rec: 03/25/18 09:06 [facility] [id number]) Lymphedema Measurements Lower Extremity Circumference Measurements Left Affected Medial Malleolus 31.9 cm 10 cm From Medial Malleolus 28.1 cm 20 cm From Medial Malleolus 33.2 cm 30 cm From Medial Malleolus 59.2 cm 40 cm From Medial Malleolus 67.1 cm 50 cm From Medial Malleolus 73.4 cm 60 cm From Medial Malleolus 74.1 cm Right Affected MT Heads 25.3 cm Medial Malleolus 31.8 cm 10 cm From Medial Malleolus 30.7 cm 20 cm From Medial Malleolus 44.9 cm 30 cm From Medial Malleolus 54.3 cm 40 cm From Medial Malleolus 67.6 cm 50 cm From Medial Malleolus 72.2 cm 60 cm From Medial Malleolus 67.6 cm Comments Lymphedema Comments see photos in chart. Left MTP measurement not taken due to thick dressing. PT-OP-Q Treatments Start: 03/21/18 13:01 Freq: Status: Active Protocol: Document 05/16/18 13:18 [facility] (Rec: 05/16/18 14:18 [facility] [id number]) Cardio Equipment Recumbent Elliptical ([email or web address]) Duration (Minutes) 11 Resistance 2 Lymphedema Treatment Other Other cut off wrap on right leg, circumferential measurements edith LE's. PT-OP-R Modalities Start: 03/21/18 13:01 Freq: Status: Active Protocol: Document 05/16/18 13:18 [facility] (Rec: 05/16/18 14:18 [facility] [id number]) Compression Pump Treatment Treatment Location Right Leg Pressure Amount (mmHg) (mmHG) 35 Inflation Time (Seconds) 30 Deflation Time (Seconds) 10 Treatment Duration (minutes) 15 Treatment Tolerance Good Left Leg Treatment Duration (minutes) 10 Treatment Tolerance Good Treatment Comments decreased circumferential measurements following pump PT-OP-T Assessment and Plan Start: 03/21/18 13:01 Freq: Status: Active Protocol: Document 05/16/18 13:18 [facility] (Rec: 05/16/18 14:18 [facility] [id number]) Physical Therapy Assessment Goals 4 Impairment activity tolerance, gait Short Term Goal (STG) Patient will be able to ambulate with FWW for at least 5 min without excess fatigue or pain STG Duration 4 wks Bow Making Machine Operator Goal (LTG) Patient will be able to ambulate for 15 min with FWW to as evidence of improved activity tolerance and mobility to increase her functional independence and safety in home and community. 3 Impairment weakness Short Term Goal (STG) Initiate LE strengthening exercises to improve strength and mobility. STG Duration 4 wks Shelter Goal (LTG) Patient to demonstrate increase in LE strength to 4/5 throughout LTG Duration 3 months 2 Impairment Knowledge deficit Short Term Goal (STG) Patient to be instructed in self-MLD with adaptations, lymphedema precautions, sequential lymphedema exercises STG Duration 4 wks Bow Making Machine Operator Goal (LTG) Patient to be independent with all aspects of lymphedema self-management LTG Duration 3 months 1 Impairment edema bilateral LE's Short Term Goal (STG) Decrease lymphedema to stable level with no increase or decrease more than 1 cm over the course of 1 wk STG Duration 6 wks Bow Making Machine Operator Goal (LTG) Patient to be fit with appropriate compression garment for lymphedema management; need to evaluate current Circ-Aid and recommend additional Circ-Aid left knee to hip. May need to consider home lymhedema pump LTG Duration 3 months Assessment Summary Assessment Decrease in measurements after treatment, right measurements decreased signficantly from last session, left increased as patient noted. Physical Therapy Plan Frequency and Duration Frequency of Treatment 2x/Week Duration of Treatment 3 months Plan of Care Start Date 03/21/18 Plan of Care End Date 06/19/18 Therapeutic Interventions Therapeutic Interventions Gait Training Home Exercise Program Lymphedema Management Manual Therapy Patient/Caregiver Education Self-Care/Home Management Therapeutic Activities Therapeutic Exercises Modalities Vasopneumatic Devices Next Visit Focus/Plan Next Note Type Treatment Note Next Visit Plan Continue lymphedema management . Have discussed Circ Aids further with physician and nurse at wound care; determined circ aids not appropriate for this patient and have recommmended gigi compression stockings instead. Patient considering.
--- NOTE | 2018-10-10 15:57 | PT.OTRE ---
Current Diagnoses Lymphedema, not elsewhere classified (10/10/18) Past Medical History (Last Reviewed 11/21/17 @ 08:47 by William Zavala MD) Morbid obesity (Acute) Stasis dermatitis (Acute) Wound of lower extremity (Acute) Surgical History (Last Updated 11/17/17 @ 19:39 by Rex Ram MD) H/O umbilical hernia repair (Acute) Provider Visit Care Team Role Provider Type Arya Beyer MD Family Provider Physician Primary Care Provider Specialty: Internal Medicine Address: [address] [place] [address], [id number] Email: Keegan Fontanez MD Attending Provider Physician Specialty: Wound Care Address: [address] [place] [address], [id number] Email: Physical Therapy Re-Evaluation PT-OP-A Visit Information Start: 03/21/18 13:01 Freq: Status: Active Protocol: Document 10/10/18 09:23 [facility] (Rec: 10/10/18 09:34 [facility] [id number]) Out-Patient Physical Therapy Visit Information Visit Information Visit Type Re-Evaluation Visit Start Time 09:15 Visit Stop Time 10:50 Total Visit Minutes 95 Visit Number 9/10 Number of INTELLIGENCE GROUP SUPERVISOR Visits 0 Evaluation Information Evaluation Date 03/21/18 PT-OP-B Current Condition Start: 03/21/18 13:01 Freq: Status: Active Protocol: Document 03/21/18 13:00 [facility] (Rec: 03/21/18 16:53 [facility] [id number]) Current Condition History of Current Condition Onset Date 10+ years Current Complaints lymphedema, limited function bilateral LE's left greater than right. History of Current Condition Patient reports long history of lymphedema in LE's, several bouts of cellulitis including a recent hospitalization. Going to wound care department and having Home Health nursing for wounds on her left toes and lower leg (covered with dressings after wound care appointment today.) States she currently uses Tubigrip size G (in place from toes to knees) for compression; previously had custom-fit compression stockings which she stated were too tight and she cut them off and threw them away: I wouldn't try those again if God gave me the money to afford them. Has roll of size G Tubigrip at home, uses only to knee because won't fit upper leg. Reports prior use of compression pump, uncertain of effect. Wears Circ Aids from foot to knee but not wearing today. Refuses lymphedema wrapping again due to prior poor experience per her report. Has never worn compression above her knee. Reports low activity level with use of FWW. Spends most of her day sitting in chair. Prior Functional Status Baseline Function- ADL's Modified Independent Baseline Function- Mobility Modified Independent Baseline Function- Gait Uses FWW Current Functional Impairments (Reported) Functional Limitations- ADL's Needs assist Functional Limitations- Mobility/Gait Modified independent, slow, painful Personal Factors Other Personal Factors That May Effect Low activity level, resistance Therapy/Recovery to compression stockings. PT-OP-C Subjective Start: 03/21/18 13:01 Freq: Status: Active Protocol: Document 10/10/18 09:23 [facility] (Rec: 10/10/18 09:34 [facility] [id number]) OP-PT Subjective Patient Comments Patient Comments No new c/o, reports compliant to HEP PT-OP-G Mobility & Gait Start: 03/21/18 13:01 Freq: Status: Active Protocol: Document 03/21/18 13:00 [facility] (Rec: 03/25/18 09:06 [facility] [id number]) OP Gait Assessment Gait Gait Assistance Required: Standby Assistance Distance (Feet) 60 Assistive Devices Assistive Device Front Wheeled Walker Gait Deviations General Gait Pattern Antalgic Decreased Stride Length Decreased Feet Clearance Flexed Trunk Comments Gait Comments Limited by edema, pain, deconditioning PT-OP-J Posture/Palpation/Skin Start: 03/21/18 13:01 Freq: Status: Active Protocol: Document 03/21/18 13:00 [facility] (Rec: 03/25/18 09:06 [facility] [id number]) Palpation Assessment Location LE's Palpation Findings Edema Palpation Details reddening and fibrosis of tissue bilateral lower legs knees to ankles. No reddening or fibrosis from knees proximal. Skin Assessment Edema Assessment Bilateral Leg Edema Appearance Dimpled Discolored Firm Open Sores Taut Subjective Edema Description Pain Tightness Other Assessments Skin Assessment Comments see photos in chart PT-OP-K Range of Motion Start: 03/21/18 13:01 Freq: Status: Active Protocol: Document 03/21/18 13:00 [facility] (Rec: 03/25/18 09:06 [facility] [id number]) Hip Goniometric Range of Motion Hip ROM Limitations Comments Moderate decrease due to weakness and swelling Knee Goniometric Range of Motion Knee ROM Limitations Knee ROM Limitations Soft Tissue Tightness Muscle Weakness Swelling Ankle and Foot Goniometric Range of Motion Ankle and Foot ROM Limitations ROM Limitations Soft Tissue Tightness Comments minimal edema in feet PT-OP-M Strength Start: 03/21/18 13:01 Freq: Status: Active Protocol: Document 03/21/18 13:00 [facility] (Rec: 03/25/18 09:06 [facility] [id number]) Hip Strength Hip Manual Muscle Testing edith Comments grossly 2/5 throughout Knee Strength Knee Manual Muscle Testing bilateral Comments grossly 3+/5 throughout Ankle/Foot Strength Ankle and Foot Manual Muscle Testing bilateral Comments 4/5 throughout PT-OP-N Lymphedema Start: 03/21/18 13:01 Freq: Status: Active Protocol: Document 10/10/18 12:00 [facility] (Rec: 10/10/18 12:05 [facility] [id number]) Lymphedema Measurements Lower Extremity Circumference Measurements Left Affected MT Heads 24.5 cm Medial Malleolus 31.4 cm 10 cm From Medial Malleolus 29.2 cm 20 cm From Medial Malleolus 33 cm 30 cm From Medial Malleolus 57.7 cm 40 cm From Medial Malleolus 62 cm 50 cm From Medial Malleolus 75.2 cm 60 cm From Medial Malleolus 77.5 cm Right Affected MT Heads 24.9 cm Medial Malleolus 30 cm 10 cm From Medial Malleolus 31 cm 20 cm From Medial Malleolus 41.2 cm 30 cm From Medial Malleolus 51.4 cm 40 cm From Medial Malleolus 61 cm 50 cm From Medial Malleolus 72.7 cm 60 cm From Medial Malleolus 67.4 cm PT-OP-Q Treatments Start: 03/21/18 13:01 Freq: Status: Active Protocol: Document 10/10/18 09:23 [facility] (Rec: 10/10/18 09:34 [facility] [id number]) Cardio Equipment Recumbent Elliptical (Trips n Salsa) Duration (Minutes) 10 Resistance 2 Lymphedema Treatment Manual Lymphatic Drainage Location edith LE's left greater than right Comments Cetaphil lotion applied to bilateral LE's. MLD to edith LE for edema reduction. Lymphedema Wrapping Body Location edith lower legs Materials Size F tubigrip to foot and lower leg to just below calf. 1 foam around lower legs below calf to establish cylindrical shape of lower leg then CircAids applied Sequential Lymphedema Exercises Location edith LE's Comments 5 reps ea, supine PT-OP-R Modalities Start: 03/21/18 13:01 Freq: Status: Active Protocol: Document 10/10/18 09:23 [facility] (Rec: 10/10/18 09:34 [facility] [id number]) Compression Pump Treatment Treatment Location Right Leg Pressure Amount (mmHg) (mmHG) 35 Inflation Time (Seconds) 30 Deflation Time (Seconds) 10 Treatment Duration (minutes) 15 Treatment Tolerance Good Left Leg Treatment Duration (minutes) 30 Treatment Tolerance Good Treatment Comments decreased circumferential measurements following pump PT-OP-T Assessment and Plan Start: 03/21/18 13:01 Freq: Status: Active Protocol: Document 10/10/18 09:23 [facility] (Rec: 10/10/18 09:34 [facility] [id number]) Physical Therapy Assessment Goals 4 Impairment activity tolerance, gait Short Term Goal (STG) Patient will be able to ambulate with FWW for at least 5 min without excess fatigue or pain 10/10/18: goal progress STG Duration 11/21/18 Environmental Field Services Technician Goal (LTG) Patient will be able to ambulate for 15 min with FWW to as evidence of improved activity tolerance and mobility to increase her functional independence and safety in home and community. 10/10/18: goal progress LTG Duration 01/10/19 3 Impairment weakness Short Term Goal (STG) Initiate LE strengthening exercises to improve strength and mobility. 10/10/18 STG Duration [facility] Goal (LTG) Patient to demonstrate increase in LE strength to 4/5 throughout 10/10/18: goal progress LTG Duration 01/10/19 2 Impairment Knowledge deficit Short Term Goal (STG) Patient to be instructed in self-MLD with adaptations, lymphedema precautions, sequential lymphedema exercises 10/10/18: goal met STG Duration MET Environmental Field Services Technician Goal (LTG) Patient to be independent with all aspects of lymphedema self-management 10/10/18: goal progress LTG Duration 01/10/19 1 Impairment edema bilateral LE's Short Term Goal (STG) Decrease lymphedema to stable level with no increase or decrease more than 1 cm over the course of 1 wk 10/10/18: goal progress STG Duration 6 wks Environmental Field Services Technician Goal (LTG) Patient to be fit with appropriate compression garment for lymphedema management; need to evaluate current Circ-Aid and recommend additional Circ-Aid left knee to hip. May need to consider home lymhedema pump LTG Duration 01/10/19 Assessment Summary Assessment Patient not seen since 05/16/18 due to extensive wounds. Returns to PT today for further strengthening and lymhedema management. Physical Therapy Plan Frequency and Duration Frequency of Treatment 2x/Week Duration of Treatment 3 months Plan of Care Start Date 10/10/18 Plan of Care End Date 01/10/19 Therapeutic Interventions Therapeutic Interventions Gait Training Home Exercise Program Lymphedema Management Manual Therapy Patient/Caregiver Education Self-Care/Home Management Therapeutic Activities Therapeutic Exercises Modalities Vasopneumatic Devices Next Visit Focus/Plan Next Note Type Treatment Note Next Visit Plan Continue ther ex, lymphedema management. Assess response to use of foam under circ aids
--- NOTE | 2018-10-10 15:57 | PT.OPPOC ---
Current Diagnoses Lymphedema, not elsewhere classified (10/10/18) Provider Visit Care Team Role Provider Type Arya Beyer MD Family Provider Physician Primary Care Provider Specialty: Internal Medicine Address: [address] [place] [address], [address] Email: Keegan Fontanez MD Attending Provider Physician Specialty: Wound Care Address: [address] [place] [address], [address] Email: Plan Of Care PT-OP-T Assessment and Plan Start: 03/21/18 13:01 Freq: Status: Active Protocol: Document 10/10/18 09:23 SAK (Rec: 10/10/18 09:34 SAK [id number]) Physical Therapy Assessment Goals 4 Impairment activity tolerance, gait Short Term Goal (STG) Patient will be able to ambulate with FWW for at least 5 min without excess fatigue or pain 10/10/18: goal progress STG Duration 11/21/18 Alf Goal (LTG) Patient will be able to ambulate for 15 min with FWW to as evidence of improved activity tolerance and mobility to increase her functional independence and safety in home and community. 10/10/18: goal progress LTG Duration 01/10/19 3 Impairment weakness Short Term Goal (STG) Initiate LE strengthening exercises to improve strength and mobility. 10/10/18 STG Duration MET Alf Goal (LTG) Patient to demonstrate increase in LE strength to 4/5 throughout 10/10/18: goal progress LTG Duration 01/10/19 2 Impairment Knowledge deficit Short Term Goal (STG) Patient to be instructed in self-MLD with adaptations, lymphedema precautions, sequential lymphedema exercises 10/10/18: goal met STG Duration MET Advanced Practice Rn Goal (LTG) Patient to be independent with all aspects of lymphedema self-management 10/10/18: goal progress LTG Duration 01/10/19 1 Impairment edema bilateral LE's Short Term Goal (STG) Decrease lymphedema to stable level with no increase or decrease more than 1 cm over the course of 1 wk 10/10/18: goal progress STG Duration 6 wks Advanced Practice Rn Goal (LTG) Patient to be fit with appropriate compression garment for lymphedema management; need to evaluate current Circ-Aid and recommend additional Circ-Aid left knee to hip. May need to consider home lymhedema pump LTG Duration 01/10/19 Assessment Summary Assessment Patient not seen since 05/16/18 due to extensive wounds. Returns to PT today for further strengthening and lymhedema management. Physical Therapy Plan Frequency and Duration Frequency of Treatment 2x/Week Duration of Treatment 3 months Plan of Care Start Date 10/10/18 Plan of Care End Date 01/10/19 Therapeutic Interventions Therapeutic Interventions Gait Training Home Exercise Program Lymphedema Management Manual Therapy Patient/Caregiver Education Self-Care/Home Management Therapeutic Activities Therapeutic Exercises Modalities Vasopneumatic Devices Next Visit Focus/Plan Next Note Type Treatment Note Next Visit Plan Continue ther ex, lymphedema management. Assess response to use of foam under circ aids Plan of Care Dates Plan of Care Start Date 10/10/18 Plan of Care End Date 01/10/19 Please Sign and Return: I have reviewed this Plan of Care and certify that the skilled therapy services above are required to meet the patient?s needs. Physician Signature Date Printed Name and Credentials Clinical Instructor Signature Printed Name and Credentials
--- NOTE | 2018-12-17 09:35 | PT.OPDS ---
Current Diagnoses Lymphedema, not elsewhere classified (10/10/18) Visit Care Team Role Provider Type Arya Beyer MD Family Provider Physician Primary Care Provider Specialty: Internal Medicine Address: [address] [place] [address], [address] Email: [email or web address] Keegan Fontanez MD Attending Provider Physician Specialty: Wound Care Address: [address] [place] [address], [id number] Email: [email or web address] Visit Number Visit Number [id number] Discharge Summary PT-OP-B Current Condition Start: 03/21/18 13:01 Freq: Status: Active Protocol: Document 03/21/18 13:00 [facility] (Rec: 03/21/18 16:53 [facility] [id number]) Current Condition History of Current Condition Onset Date 10+ years Current Complaints lymphedema, limited function bilateral LE's left greater than right. History of Current Condition Patient reports long history of lymphedema in LE's, several bouts of cellulitis including a recent hospitalization. Going to wound care department and having Home Health nursing for wounds on her left toes and lower leg (covered with dressings after wound care appointment today.) States she currently uses Tubigrip size G (in place from toes to knees) for compression; previously had custom-fit compression stockings which she stated were too tight and she cut them off and threw them away: I wouldn't try those again if God gave me the money to afford them. Has roll of size G Tubigrip at home, uses only to knee because won't fit upper leg. Reports prior use of compression pump, uncertain of effect. Wears Circ Aids from foot to knee but not wearing today. Refuses lymphedema wrapping again due to prior poor experience per her report. Has never worn compression above her knee. Reports low activity level with use of FWW. Spends most of her day sitting in chair. Prior Functional Status Baseline Function- ADL's Modified Independent Baseline Function- Mobility Modified Independent Baseline Function- Gait Uses FWW Current Functional Impairments (Reported) Functional Limitations- ADL's Needs assist Functional Limitations- Mobility/Gait Modified independent, slow, painful Personal Factors Other Personal Factors That May Effect Low activity level, resistance Therapy/Recovery to compression stockings. PT-OP-C Subjective Start: 03/21/18 13:01 Freq: Status: Active Protocol: Document 10/10/18 09:23 [facility] (Rec: 10/10/18 09:34 [facility] [id number]) OP-PT Subjective Patient Comments Patient Comments No new c/o, reports compliant to HEP PT-OP-G Mobility & Gait Start: 03/21/18 13:01 Freq: Status: Active Protocol: Document 03/21/18 13:00 [facility] (Rec: 03/25/18 09:06 [facility] [id number]) OP Gait Assessment Gait Gait Assistance Required: Standby Assistance Distance (Feet) 60 Assistive Devices Assistive Device Front Wheeled Walker Gait Deviations General Gait Pattern Antalgic,Decreased Stride Length,Decreased Feet Clearance,Flexed Trunk Comments Gait Comments Limited by edema, pain, deconditioning PT-OP-J Posture/Palpation/Skin Start: 03/21/18 13:01 Freq: Status: Active Protocol: Document 03/21/18 13:00 [facility] (Rec: 03/25/18 09:06 [facility] [id number]) Palpation Assessment Location LE's Palpation Findings Edema Palpation Details reddening and fibrosis of tissue bilateral lower legs knees to ankles. No reddening or fibrosis from knees proximal. Skin Assessment Edema Assessment Bilateral Leg Edema Appearance Dimpled,Discolored,Firm,Open Sores,Taut Subjective Edema Description Pain,Tightness Other Assessments Skin Assessment Comments see photos in chart PT-OP-K Range of Motion Start: 03/21/18 13:01 Freq: Status: Active Protocol: Document 03/21/18 13:00 [facility] (Rec: 03/25/18 09:06 [facility] [id number]) Hip Goniometric Range of Motion Hip ROM Limitations Comments Moderate decrease due to weakness and swelling Knee Goniometric Range of Motion Knee ROM Limitations Knee ROM Limitations Soft Tissue Tightness,Muscle Weakness,Swelling Ankle and Foot Goniometric Range of Motion Ankle and Foot ROM Limitations ROM Limitations Soft Tissue Tightness Comments minimal edema in feet PT-OP-M Strength Start: 03/21/18 13:01 Freq: Status: Active Protocol: Document 03/21/18 13:00 [facility] (Rec: 03/25/18 09:06 [facility] [id number]) Hip Strength Hip Manual Muscle Testing edith Comments grossly 2/5 throughout Knee Strength Knee Manual Muscle Testing bilateral Comments grossly 3+/5 throughout Ankle/Foot Strength Ankle and Foot Manual Muscle Testing bilateral Comments 4/5 throughout PT-OP-N Lymphedema Start: 03/21/18 13:01 Freq: Status: Active Protocol: Document 10/10/18 12:00 [facility] (Rec: 10/10/18 12:05 [facility] [id number]) Lymphedema Measurements Lower Extremity Circumference Measurements Left Affected MT Heads 24.5 cm Medial Malleolus 31.4 cm 10 cm From Medial Malleolus 29.2 cm 20 cm From Medial Malleolus 33 cm 30 cm From Medial Malleolus 57.7 cm 40 cm From Medial Malleolus 62 cm 50 cm From Medial Malleolus 75.2 cm 60 cm From Medial Malleolus 77.5 cm Right Affected MT Heads 24.9 cm Medial Malleolus 30 cm 10 cm From Medial Malleolus 31 cm 20 cm From Medial Malleolus 41.2 cm 30 cm From Medial Malleolus 51.4 cm 40 cm From Medial Malleolus 61 cm 50 cm From Medial Malleolus 72.7 cm 60 cm From Medial Malleolus 67.4 cm PT-OP-T Assessment and Plan Start: 03/21/18 13:01 Freq: Status: Active Protocol: Document 12/17/18 09:34 [facility] (Rec: 12/17/18 09:35 [facility] [id number]) Physical Therapy Plan Discharge Physical Therapy Discharge Reasons Change in Medical Status Discharge Comments Discharge due to hospitalization due to medical issues occuring in week after last seen for PT. May benefit from further PT in the future.
== END 2018-12-27 09:04 | disposition home or self-care (01) ==
LOC: PHYS 09:00
PROVIDERS: Family Provider Internal Medicine; PCP Internal Medicine; Visit Provider Family Medicine
DX: I89.0 Lymphedema, not elsewhere classified (principal)
CPT/HCPCS: 97016; 97110; 97140; 97163; 97535

== ENCOUNTER → 2018-10-10 11:01 | Outpatient (CLI) | payer MEDICARE, OTHER, SELFPAY | PROVIDERS: PCP Internal Medicine; Visit Provider Family Medicine | DX: I87.2 Venous insufficiency (chronic) (peripheral) (principal); L97.822 Non-pressure chronic ulcer of other part of left lower leg with fat layer exposed; L97.812 Non-pressure chronic ulcer of other part of right lower leg with fat layer exposed; I89.0 Lymphedema, not elsewhere classified; L03.116 Cellulitis of left lower limb; L03.115 Cellulitis of right lower limb | CPT/HCPCS: 11042; 87070; 87075; 87077; 87186; 87205; 97597 ==

== ENCOUNTER 2018-10-23 18:06 | Inpatient (IN) | payer MEDICARE, OTHER, SELFPAY ==
[2018-10-23 18:06] VITALS: BP 147/65; PULSE 90; RESP 22; TEMP 36.7; O2SAT 95
[2018-10-23 19:07] LABS: Add Manual Diff / Slide Review NO; Basophils Absolute Auto 100 /uL (0-100); Basophils Percent Auto 0.5 % (0-2); Eosinophils Absolute Auto 0 /uL (0-450); Hematocrit 43.5 % (36-46); Hemoglobin 14.5 g/dL (12.0-16.0); Lymphocytes Absolute Auto 600 /uL (1100-4500); Lymphocytes Percent Auto 2.4 % (25-40); Mean Corpuscular HGB Conc 33.2 % (30-36); Mean Corpuscular Hemoglobin 28.7 PG (26-34); Mean Corpuscular Volume 86.5 fL (80-100); Monocytes Absolute Auto 700 /uL (0-900); Neutrophils Absolute Auto 21800 /uL (1500-7000); Neutrophils Percent Auto 94.1 % (50-75); Platelet Count 234 X10^3/uL (150-400); Red Blood Cell Count 5.03 X10^6/uL (4.0-5.2); Red Cell Distribution Width 15.1 % (11.6-14.8); White Blood Cell Count 23.2 X10^3/uL (4.5-11.0)
[2018-10-23 19:18] LABS: BUN Creatinine Ratio 16.4 (6-22); Blood Urea Nitrogen 18 mg/dL (7-17); Carbon Dioxide 28 mmol/L (22-32); Chloride 104 mmol/L (98-107); Estimated Glomerular Filt Rate 48.2 mL/min (>60); Glucose 126 mg/dL (80-110); HEMOLYSIS < 15 (0-50); Potassium 4.2 mmol/L (3.4-5.1); Sodium 140 mmol/L (137-145)
--- NOTE | 2018-10-23 19:49 | DI.RAD.S_ITS ---
PROCEDURE: XR CHEST 1V INDICATIONS: weakness and septic TECHNIQUE: One view of the chest was acquired. COMPARISON: [facility], , CHEST 1 VIEW, 05/25/2017, 12:49. FINDINGS: Surgical changes and devices: None. Lungs and pleura: There are low lung volumes with mild elevation of the right hemidiaphragm redemonstrated. No definite focal consolidation. No pleural effusions or pneumothorax. Mediastinum: Mediastinal contours appear unchanged. Heart size is normal. Bones and chest wall: No suspicious bony lesions. Overlying soft tissues appear unremarkable. IMPRESSION: 1. Low lung volumes without definite cardiopulmonary disease. Dictated by: Oh Hanley M.D. on 10/23/2018 at 20:05 Approved by: Oh Hanley M.D. on 10/23/2018 at 20:06
--- NOTE | 2018-10-23 19:55 | ED.WEAKNESS ---
HPI - Weakness General Chief complaint: Weakness Stated complaint: Left leg pain Time Seen by Provider: 10/23/18 19:39 Source: patient Mode of arrival: EMS Limitations: no limitations History of Present Illness HPI Narrative: Patient is a 78-year-old female who arrives by EMS after she called them because last evening she was trying to get into bed and stated that she felt like she was too weak to get into bed. It is unclear why she waited until over 12 hours later to call EMS. Patient stated that she just did not feel very well. She stated that she feels like her lower extremities are swollen. Denies any chest pain or belly pain. States she does have a wound on her right lower extremity that she sees wound Care for. States her last wound care visit was 2 weeks ago. Related Data Home Medications Medication Instructions Recorded Confirmed potassium chloride 20 meq PO BID #0 08/23/16 11/17/17 acetaminophen 650 mg PO Q6HP PRN #0 05/25/17 11/17/17 Previous Rx's Medication Instructions Recorded gentamicin 0 gm TOPICAL QDAY #1 08/26/16 nystatin [Nystop] 0 gm TOPICAL BID #30 01/21/17 furosemide [Lasix] 80 mg PO QDAY #30 tab 05/29/17 cephalexin [Keflex] 1,000 mg PO BID #14 cap 11/21/17 doxycycline hyclate 100 mg PO BID #14 cap 11/21/17 Allergies Allergy/AdvReac Type Severity Reaction Status Date / Time amoxicillin [From Augmentin] Allergy Severe rash, Verified 11/17/17 07:27 flushing, nausea,vomiting clavulanic acid Allergy Severe rash, Verified 11/17/17 07:27 [From Augmentin] flushing, nausea,vomiting vancomycin [VANCOMYCIN] Allergy Severe URSULA Verified 11/17/17 07:27 SYNDROME, CHILLS/SHAKING, TACHYCARDIA, HYPERTENSION codeine Allergy Intermediate hives, Verified 11/17/17 07:27 vomiting fluconazole Allergy Intermediate hives Verified 11/17/17 07:27 nafcillin Allergy Intermediate rash Verified 11/17/17 07:27 oxycodone Allergy Intermediate rash, Verified 11/17/17 07:27 MENTAL CHANGES piperacillin Allergy Intermediate rash Verified 11/17/17 07:27 fish oil Allergy Unknown Verified 11/17/17 07:27 morphine AdvReac Unknown PASS OUT, Verified 11/17/17 07:27 RACING HEART DIALUDID AdvReac Unknown MENTAL Uncoded 07/25/17 11:49 STATUS CHANGES Review of Systems Constitutional Reports fatigue, Denies fever(s), Denies headache(s), Reports lethargy and Reports weakness ENT Ears, Nose, Mouth, and Throat: Denies headache(s) Cardiovascular Denies chest pain and Denies dyspnea Respiratory Denies dyspnea Gastrointestinal Gastrointestinal: Denies abdominal pain, Denies nausea and Denies vomiting Genitourinary Denies dysuria Musculoskeletal Reports myalgias and Denies arthralgias Comments: Leg swelling Integumentary/Breasts Comments: Redness to the right lower extremity Neurologic Denies confusion, Denies headache(s) and Reports weakness Comments: Generalized weakness Psychiatric Denies confusion Endocrine Reports fatigue Hematologic/Lymphatic Denies easy bleeding and Denies easy bruising Allergic/Immunologic Denies urticaria PFSH Medical History Morbid obesity (Acute) Stasis dermatitis (Acute) Wound of lower extremity (Acute) Surgical History H/O umbilical hernia repair (Acute) Social History household members: children Smoking Status: Never smoker Family History Father Cancer Mother Cancer Social History household members: children Smoking Status: Never smoker alcohol intake: never Exam Initial Vital Signs Initial Vital Signs: Vital Signs Temperature 98.0 F 10/23/18 18:06 Pulse Rate 90 10/23/18 18:06 Respiratory Rate 22 10/23/18 18:06 Blood Pressure 147/65 H 10/23/18 18:06 Pulse Oximetry 95 10/23/18 18:06 Const General: cooperative, No in distress and disheveled Nutritional Appearance: obese Orientation: alert, awake and oriented x3 Limitations: mental status not altered HENMT Head: normal to inspection and normocephalic Nose: external nose normal Face and sinus: normal facial exam Resp Effort & Inspection: normal respiratory effort Auscultation: clear to auscultation bilaterally Cardio Rate: regular rate Rhythm: abnormal rhythm Pulses: radial pulses present GI Inspection: non-distended Palpation: soft Skin Other: Patient with an ulcer to the lateral aspect of the right lower extremity. This is surrounding erythema that extends circumferentially from her ankle up the leg to the medial part of her leg up to the thigh. This is warm to the touch. Neuro General: alert, awake and oriented x3 Cognition: normal cognition Sensory Exam: no sensory deficits noted Extrem General: capillary refill normal and edema Other: Patient with swelling bilateral lower extremities. She comes in with bandages wrapped around her ankles to mid calf. Swelling is located proximal to these bandages. Scores GCS Highland coma scale eye opening: Spontaneous [place] coma scale verbal response: Orientated Obed coma scale motor response: Obey commands Highland coma scale total score: 15 Course Orders Ordered: ED Orders 10/23/18 18:59 BMP [Basic Metabolic Panel] Stat Complete Blood Count AUTO DIFF Stat Lactate (Lactic Acid) Stat Procalcitonin Stat Troponin I Stat 10/23/18 19:49 XR chest 1V Stat 10/23/18 20:06 Blood Culture Stat 10/23/18 23:12 Consult to Dietitian, Adult Routine 10/23/18 23:14 Consult to Occupational Therapy Evaluate & Treat Consult to Physical Therapy Evaluate & Treat 10/23/18 23:15 Consult to Wound Care Routine 10/24/18 00:30 MRSA PCR Stat Urine Culture Routine 10/24/18 00:50 Basic Metabolic Panel Routine Complete Blood Count AUTO DIFF Routine Procalcitonin Routine 10/24/18 02:17 Consult to Dietitian, Adult Routine Acetaminophen (Tylenol) 650 mg PO Q6HR PRN PRN Reason: As Needed for Fever/Mild Pain Last Admin: 10/24/18 00:56 Dose: 650 mg Al Hydrox/Mg Hydrox/Simethicone (Maalox Plus) 30 ml PO Q6HR PRN PRN Reason: Dyspepsia Bisacodyl (Dulcolax) 10 mg PO DAILY PRN PRN Reason: Constipation Calcium Carbonate (Tums) 1,000 mg PO Q4HR PRN PRN Reason: Dyspepsia Enoxaparin Sodium (Lovenox) 40 mg SUBCUT DAILY MIKEY Furosemide (Lasix) 80 mg PO DAILY MIKEY Sodium Chloride (Normal Saline 0.9%) 1,000 mls @ 125 mls/hr IV CONT MIKEY Last Admin: 10/24/18 00:30 Dose: 125 mls/hr Ceftriaxone Sodium/Dextrose (Rocephin) 2 gm in 50 mls @ 100 mls/hr IV Q24H [facility] Daptomycin 830 mg/ Sodium (Chloride) 50 mls @ 100 mls/hr IV Q24H [facility] Last Infusion: 10/24/18 02:18 Dose: 100 mls/hr Admin: 10/24/18 00:56 Dose: 100 mls/hr Nystatin (Nystop) 1 applic TOP BID [facility] Last Admin: 10/24/18 02:36 Dose: Not Given Ondansetron HCl (Zofran) 4 mg IV Q8HR PRN PRN Reason: Nausea And Vomiting Potassium Chloride (Klor-Con M20) 20 meq PO BID [facility] Sodium Chloride (Normal Saline 0.9% Flush) 10 ml IV PRN PRN PRN Reason: Flush Discontinued Medications Ceftriaxone Sodium (Rocephin) 1,000 mg IM NOW ONE Stop: 10/23/18 20:36 Last Admin: 10/23/18 21:06 Dose: 1,000 mg Ceftriaxone Sodium/Dextrose (Rocephin) 1 gm in 50 mls @ 100 mls/hr IV NOW ONE Stop: 10/23/18 20:28 Last Admin: 10/23/18 20:36 Dose: Not Given Levofloxacin (Levaquin) 750 mg in 150 mls @ 100 mls/hr IV NOW ONE Stop: 10/23/18 21:28 Last Infusion: 10/24/18 00:44 Dose: 100 mls/hr Admin: 10/23/18 22:59 Dose: 100 mls/hr Sodium Chloride (Normal Saline 0.9%) 4,170.78 mls @ 1,390.26 mls/hr 30 ml/kg infuse over 3 hr (4170.78 ml) IV NOW ONE Stop: 10/24/18 01:10 Last Infusion: 10/24/18 00:45 Dose: 999 mls/hr Admin: 10/23/18 22:16 Dose: 1,390.26 mls/hr Ceftriaxone Sodium/Dextrose (Rocephin) 1 gm in 50 mls @ 100 mls/hr IV NOW ONE Stop: 10/23/18 23:58 Last Infusion: 10/24/18 01:31 Dose: 100 mls/hr Admin: 10/24/18 00:31 Dose: 100 mls/hr Lidocaine HCl (Xylocaine 1%) 4.2 ml INJ NOW ONE Stop: 10/23/18 20:36 Last Admin: 10/23/18 22:16 Dose: Not Given Vital Signs - 8 hr 10/23/18 20:28 10/23/18 20:30 10/23/18 21:40 Temperature Pulse Rate 96 H Pulse Rate [Right Dorsalis Pedis] 96 H Respiratory Rate Blood Pressure Blood Pressure [Left Arm] 129/85 82/61 L Pulse Oximetry 94 10/23/18 21:53 10/23/18 23:39 10/24/18 00:33 Temperature 99.7 F H Pulse Rate 99 H 90 93 H Pulse Rate [Right Dorsalis Pedis] Respiratory Rate 26 H 23 28 H Blood Pressure 136/49 L Blood Pressure [Left Arm] 117/71 137/43 L Pulse Oximetry 97 95 91 MDM - Weakness Lab Data Attestation: I reviewed the patient's lab results. Result diagrams: 10/24/18 00:50 10/24/18 00:50 Lab Results 10/23/18 10/23/18 10/23/18 Range/Units 18:59 18:59 18:59 WBC 23.2 H (4.5-11.0) X10^3/uL RBC 5.03 (4.0-5.2) X10^6/uL Hgb 14.5 (12.0-16.0) g/dL Hct 43.5 (36-46) % MCV 86.5 (80-100) fL MCH 28.7 (26-34) PG MCHC 33.2 (30-36) % RDW 15.1 H (11.6-14.8) % Plt Count 234 (150-400) X10^3/uL Neut % (Auto) 94.1 H (50-75) % Lymph % (Auto) 2.4 L (25-40) % [place] % (Auto) 3.0 (3-14) % Eos % (Auto) 0.0 L (2-4) % Baso % (Auto) 0.5 (0-2) % Neut # (Auto) 14143 H (5669-7556) /uL Lymph # (Auto) 600 L (4810-5916) /uL [place] # (Auto) 700 (0-900) /uL Eos # (Auto) 0 (0-450) /uL Baso # (Auto) 100 (0-100) /uL Sodium 140 (137-145) mmol/L Potassium 4.2 (3.4-5.1) mmol/L Chloride 104 (98-107) mmol/L Carbon Dioxide 28 (22-32) mmol/L BUN 18 H (7-17) mg/dL Creatinine 1.10 H (0.52-1.04) mg/dL Estimated GFR 48.2 L (>60) mL/min BUN/Creatinine Ratio 16.4 (6-22) Glucose 126 H (80-110) mg/dL Lactate (0.7-2.1) mmol/L Calcium 9.0 (8.4-10.2) mg/dL Troponin I < 0.012 (0.01-0.034) ng/mL Procalcitonin (<0.5) ng/mL Nasal Screen MRSA (PCR) (Negative) 10/23/18 10/23/18 10/24/18 Range/Units 18:59 18:59 00:30 WBC (4.5-11.0) X10^3/uL RBC (4.0-5.2) X10^6/uL Hgb (12.0-16.0) g/dL Hct (36-46) % MCV (80-100) fL MCH (26-34) PG MCHC (30-36) % RDW (11.6-14.8) % Plt Count (150-400) X10^3/uL Neut % (Auto) (50-75) % Lymph % (Auto) (25-40) % [place] % (Auto) (3-14) % Eos % (Auto) (2-4) % Baso % (Auto) (0-2) % Neut # (Auto) (9231-1405) /uL Lymph # (Auto) (4102-0197) /uL [place] # (Auto) (0-900) /uL Eos # (Auto) (0-450) /uL Baso # (Auto) (0-100) /uL Sodium (137-145) mmol/L Potassium (3.4-5.1) mmol/L Chloride (98-107) mmol/L Carbon Dioxide (22-32) mmol/L BUN (7-17) mg/dL Creatinine (0.52-1.04) mg/dL Estimated GFR (>60) mL/min BUN/Creatinine Ratio (6-22) Glucose (80-110) mg/dL Lactate 1.6 (0.7-2.1) mmol/L Calcium (8.4-10.2) mg/dL Troponin I (0.01-0.034) ng/mL Procalcitonin 5.04 H (<0.5) ng/mL Nasal Screen MRSA (PCR) Negative for mrsa (Negative) 10/24/18 10/24/18 10/24/18 Range/Units 00:50 00:50 00:50 WBC 17.6 H (4.5-11.0) X10^3/uL RBC 4.43 (4.0-5.2) X10^6/uL Hgb 12.7 (12.0-16.0) g/dL Hct 38.5 (36-46) % MCV 86.9 (80-100) fL MCH 28.6 (26-34) PG MCHC 32.9 (30-36) % RDW 15.1 H (11.6-14.8) % Plt Count 190 (150-400) X10^3/uL Neut % (Auto) 93.5 H (50-75) % Lymph % (Auto) 2.9 L (25-40) % [place] % (Auto) 3.5 (3-14) % Eos % (Auto) 0.0 L (2-4) % Baso % (Auto) 0.1 (0-2) % Neut # (Auto) 64876 H (6641-9551) /uL Lymph # (Auto) 500 L (2433-3138) /uL [place] # (Auto) 600 (0-900) /uL Eos # (Auto) 0 (0-450) /uL Baso # (Auto) 0 (0-100) /uL Sodium 139 (137-145) mmol/L Potassium 3.5 (3.4-5.1) mmol/L Chloride 110 H (98-107) mmol/L Carbon Dioxide 24 (22-32) mmol/L BUN 16 (7-17) mg/dL Creatinine 0.80 (0.52-1.04) mg/dL Estimated GFR > 60.0 (>60) mL/min BUN/Creatinine Ratio 20.0 (6-22) Glucose 123 H (80-110) mg/dL Lactate (0.7-2.1) mmol/L Calcium 7.5 L (8.4-10.2) mg/dL Troponin I (0.01-0.034) ng/mL Procalcitonin 3.95 H (<0.5) ng/mL Nasal Screen MRSA (PCR) (Negative) Imaging Data Chest x-ray: Radiologist's impression: Tiffanie Gomez 78 F [address] [address] XRay Report Signed Patient: Tiffanie Gomez CMR#: [id number] : [id number]:[id number] Age/Sex: 78 / FDate of Service: 10/23/18 Loc: ED Accession Number: [id number] Procedure: XR chest 1V Ordering Provider: Faisal Vogel D.O. PROCEDURE: XR CHEST 1V INDICATIONS: weakness and septic TECHNIQUE: One view of the chest was acquired. COMPARISON: [facility], , CHEST 1 VIEW, 05/25/2017, 12:49. FINDINGS: Surgical changes and devices: None. Lungs and pleura: There are low lung volumes with mild elevation of the right hemidiaphragm redemonstrated. No definite focal consolidation. No pleural effusions or pneumothorax. Mediastinum: Mediastinal contours appear unchanged. Heart size is normal. Bones and chest wall: No suspicious bony lesions. Overlying soft tissues appear unremarkable. IMPRESSION: 1. Low lung volumes without definite cardiopulmonary disease. Dictated by: Oh Hanley M.D. on 10/23/2018 at 20:05 Approved by: Oh Hanley M.D. on 10/23/2018 at 20:06 ECG Data Attestation: I personally reviewed and interpreted this ECG as follows: Prior ECG tracings: not available for review Interpretation: Atrial fibrillation Ventricular rate of 97 Left axis deviation Normal QRS MDM Narrative Medical decision making narrative: Patient arrived is disheveled. She is morbidly obese. Does have a cellulitis extending up her right lower extremity most likely from the wound on the lateral aspect of her leg. She does have swelling of bilateral lower extremities. This apparently is not new for her. She does have bandages around her ankles which she states she has not changed in several days. Initially had very difficult time obtaining IV access. She was given IM Rocephin and IV Levaquin was ordered. She was a very difficult IV start so the PICC team was called. While waiting for the PICC team to arrive patient did have a period of time where she became hypotensive. Were able to start a small 24 gauge in her left anterior chest in which fluids were administered which improved her blood pressure. No blood pressure medications were needed in the ER. Patient did up receiving a PICC line here in the ER. Blood cultures were obtained. I discussed the case with CARMEN Gurrola the night hospitalist to accept the patient. I discussed the admission with the patient she expressed understanding and agreement. Sepsis fluid protocol orders were started. Discharge Plan Departure Patient Disposition: Admitted As Inpatient Clinical Impression: Cellulitis Qualifiers: Site of cellulitis: extremity Site of cellulitis of extremity: lower extremity Laterality: right Qualified Code(s): L03.115 - Cellulitis of right lower limb Discharge Date/Time: 10/24/18 00:01 Interventions: ED Discharge Assessment Last Done: 10/24/18 00:46 Admit Date/Time: 10/23/18 22:13 Admit Provider: Dc Gurrola
[2018-10-23 20:11] LABS: Lactate (Lactic Acid) 1.6 mmol/L (0.7-2.1)
[2018-10-23 20:24] LABS: Troponin I < 0.012 ng/mL (0.01-0.034)
[2018-10-23 20:28] VITALS: PULSE 96
[2018-10-23 20:30] VITALS: BP 129/85; O2SAT 94
[2018-10-23 20:32] LABS: Procalcitonin 5.04 ng/mL (<0.5)
[2018-10-23] MEDS: cefTRIAXone 2,000 MG VIAL 1000 MG IM (21:06)
--- NOTE | 2018-10-23 21:06 | PC.NURSE ---
unable to obtain IV access after multiple attempts by multiple nurses, notified, called for PICC placement at 2018
[2018-10-23 21:40] VITALS: BP 82/61; PULSE 96
[2018-10-23 21:53] VITALS: BP 117/71; PULSE 99; RESP 26; O2SAT 97
[2018-10-23] MEDS: SODIUM CHLORIDE 0.9% 1390.26 ML IV (22:16)
[2018-10-23] MEDS: levoFLOXacin 750 MG/150 ML PIGGYBACK 100 MG IV (22:59)
--- NOTE | 2018-10-23 23:37 | P.HP_ITS ---
History of Present Illness Date Patient Seen: 10/23/18 Time Patient Seen: 23:00 Chief complaint: Left leg pain Narrative: Ms. Tiffanie Gomez is a 78-year-old female patient with history of mor bid obesity stasis dermatitis with wounds bilateral lower extremities who presents to the hospital for increasing weakness pain and swelling of the lower extremities. Patient states at 11:00 a.m. last night she had difficulty getting in bed both from increased swelling of her lower extremities as well as weakness. Her last admission for cellulitis was 11/17/2017 after which she was followed by wound care until January 2018. The patient complains of increased swelling generalized weakness that has been progressive for the last several days. She Has redness of the right lower extremity with warmth and swelling to above the knee with crusted ulcerations. She denies complaints of pain and re ports no complaints of fevers or chills. She has had no chest pain or palpitations, shortness of breath cough or wheezing though she states sometimes it is hard for her to take a deep breath. She has no abdominal pain and denies nausea vomiting, diarrhea or constipation. She denies dysuria or hematuria. The patient was brought into the hospital by EMS and upon arrival was found to be afebrile with temperature of 98.0?, heart rate of 90, blood pressure 147/65, respiratory rate 22 and oxygen saturation 97% on room air. A chest x-ray was taken which shows low lung volumes but no acute cardiopulmonary disease. On laboratory analysis she has an elevated white cell count of 23.2 with 94.1% n eutrophils, hemoglobin 14.5 and hematocrit 43.5 platelets of 234. Her electrolytes are within normal limits and she has a BUN of 18 with a creatinine of 1.1 and EGFR of 48. Her nonfasting glucose is 126. Her lactate was found to be normal at 1.6 however she had an elevated procalcitonin of 5.04. A peripheral line was unable to be established therefore PICC line was called for and inserted in the ED. She received Rocephin 1 g IM after obtaining a single blood culture. The patient is admitted for cellulitis and IV antibiotics. Patient History Medical History Morbid obesity (Acute) Stasis dermatitis (Acute) Wound of lower extremity (Acute) Surgical History H/O umbilical hernia repair (Acute) Social History household members: children Smoking Status: Never smoker Family & Social History Family History Father Cancer Mother Cancer Social History: household members children Safety & Behavioral: Feels Safe in Current Yes Environment Been Physically Hurt or No Threatened By a Person Tobacco & Substance use: Smoking Status Never smoker alcohol intake frequency 0-2 drinks per day Substance Use Type does not use Comment: The patient is and lives with her son in a single family home. The patient is minimally ambulatory does use a walker for assistance. The patient's parents are both and she has no siblings. Smoking: The patient denies ever smoking. Alcohol: The patient denies alcohol consumption. Substance use. The patient denies recreational pharmaceuticals, herbal or cannabis use. Advanced directives: In direct discussion with the patient she expresses her wishes to be FULL CODE. She designates her daughter Nasima to be her surrogate decision maker. Meds Home Medications Medication Instructions Recorded Confirmed Type potassium chloride 20 meq PO BID #0 08/23/16 11/17/17 History gentamicin 0 gm TOPICAL QDAY #1 08/26/16 11/17/17 Rx nystatin [Nystop] 0 gm TOPICAL BID #30 01/21/17 11/17/17 Rx acetaminophen 650 mg PO Q6HP PRN #0 05/25/17 11/17/17 History furosemide [Lasix] 80 mg PO QDAY #30 tab 05/29/17 11/17/17 Rx cephalexin [Keflex] 1,000 mg PO BID #14 cap 11/21/17 Rx doxycycline hyclate 100 mg PO BID #14 cap 11/21/17 Rx Allergies Allergy/AdvReac Type Severity Reaction Status Date / Time amoxicillin [From Augmentin] Allergy Severe rash, Verified 11/17/17 07:27 flushing, nausea,vomiting clavulanic acid Allergy Severe rash, Verified 11/17/17 07:27 [From Augmentin] flushing, nausea,vomiting vancomycin [VANCOMYCIN] Allergy Severe URSULA Verified 11/17/17 07:27 SYNDROME, CHILLS/SHAKING, TACHYCARDIA, HYPERTENSION codeine Allergy Intermediate hives, Verified 11/17/17 07:27 vomiting fluconazole Allergy Intermediate hives Verified 11/17/17 07:27 nafcillin Allergy Intermediate rash Verified 11/17/17 07:27 oxycodone Allergy Intermediate rash, Verified 11/17/17 07:27 MENTAL CHANGES piperacillin Allergy Intermediate rash Verified 11/17/17 07:27 fish oil Allergy Unknown Verified 11/17/17 07:27 morphine AdvReac Unknown PASS OUT, Verified 11/17/17 07:27 RACING HEART DIALUDID AdvReac Unknown MENTAL Uncoded 07/25/17 11:49 STATUS CHANGES Review of Systems Review of Systems All systems reviewed & are unremarkable except as noted in HPI and below Exam Vital Signs (past 8 hours): - 10/23/18 18:06 10/23/18 20:28 10/23/18 20:30 Temperature 98.0 F Pulse Rate 90 Pulse Rate [Right Dorsalis Pedis] 96 H Respiratory Rate 22 Blood Pressure 147/65 H Blood Pressure [Left Arm] 129/85 Pulse Oximetry 95 94 10/23/18 21:40 10/23/18 21:53 Temperature Pulse Rate 96 H 99 H Pulse Rate [Right Dorsalis Pedis] Respiratory Rate 26 H Blood Pressure Blood Pressure [Left Arm] 82/61 L 117/71 Pulse Oximetry 97 Oxygen Delivery Method Room Air Narrative Exam Narrative: GENERAL APPEARANCE: well developed, morbidly obese female, somewhat unkempt, uncomfortable appearing. HEAD: Normocephalic, atraumatic, no scalp lesions. EYES: pupils equal, round, reactive to light and accommodation, sclera non- icteric, extraocular movement intact without nystagmus. EARS: normal external structures, no ear pain NOSE: sinuses non tender to percussion, no rhinorrhea ORAL CAVITY: mucosa moist without lesions or exudate, palate normal, tongue in midline. THROAT: normal, no erythema, no exudate, pharynx normal, uvula midline. NECK/THYROID: neck supple, no jugular venous distention, no carotid bruit appreciated, no thyromegaly, trachea midline. LYMPH NODES: no cervical or supraclavicular lymphadenopathy. SKIN: warm, dry and pink, venous stasis changes bilateral lower extremities, dry crusted wounds right lower extremity, erythema right lower extremity to above the knee HEART: regular rate and rhythm with occasional ectopic beat, S1-S2 1/6 systolic murmur, no rubs or gallops, brisk capillary refill, severe bilateral lower extremity edema. LUNGS: Breath sounds are diminished but clear to auscultation bilaterally, no coarseness crackles or wheezing, no cough present CHEST: Symmetrical movement, shallow tidal volume, no accessory muscle use. ABDOMEN: Soft, no distention, no epigastric or abdominal tenderness on palpation, no guarding or peritoneal signs, no organomegaly however exam limited by body habitus, no flank or suprapubic tenderness, active bowel tones. EXTREMITIES: moves all extremities, bilateral upper extremity strength is 5/5, bilateral lower extremity strength is 4/5 and symmetrical NEUROLOGIC: AAO x4, no focal neurologic deficits, sensory exam intact to light t ouch, hearing grossly normal to speech. PSYCH: Patient is resting with eyes closed, response to verbal stimulus to alert, cognitive function intact, fair eye contact, flat affect Objective Labs Result Diagrams: 10/23/18 18:59 10/23/18 18:59 Labs: Laboratory Results - last 24 hr 10/23/18 10/23/18 10/23/18 18:59 18:59 18:59 WBC 23.2 H RBC 5.03 Hgb 14.5 Hct 43.5 MCV 86.5 MCH 28.7 MCHC 33.2 RDW 15.1 H Plt Count 234 Neut % (Auto) 94.1 H Lymph % (Auto) 2.4 L [place] % (Auto) 3.0 Eos % (Auto) 0.0 L Baso % (Auto) 0.5 Neut # (Auto) 79488 H Lymph # (Auto) 600 L [place] # (Auto) 700 Eos # (Auto) 0 Baso # (Auto) 100 Sodium 140 Potassium 4.2 Chloride 104 Carbon Dioxide 28 BUN 18 H Creatinine 1.10 H Estimated GFR 48.2 L BUN/Creatinine Ratio 16.4 Glucose 126 H Lactate Calcium 9.0 Troponin I < 0.012 Procalcitonin 10/23/18 10/23/18 18:59 18:59 WBC RBC Hgb Hct MCV MCH MCHC RDW Plt Count Neut % (Auto) Lymph % (Auto) [place] % (Auto) Eos % (Auto) Baso % (Auto) Neut # (Auto) Lymph # (Auto) [place] # (Auto) Eos # (Auto) Baso # (Auto) Sodium Potassium Chloride Carbon Dioxide BUN Creatinine Estimated GFR BUN/Creatinine Ratio Glucose Lactate 1.6 Calcium Troponin I Procalcitonin 5.04 H Assessment & Plan Assessment & Plan narrative: This is a 78-year-old female patient who is admitted to the hospital for right leg cellulitis in the setting of venous stasis and chronic leg ulcerations. 1. Acute cellulitis right lower extremity, present on admission. -patient reports onset of symptoms yesterday evening with swelling redness and weakness. She denies fevers or chills or systemic symptoms. -the patient has an elevated white blood cell count of 23.2 with 94.1% neutrophils, procalcitonin of 5.04, lactate was normal at 1.6. -patient has previously had culture results including Staph, Pseudomonas and Proteus and is allergic to vancomycin amoxicillin nafcillin and Pipracillin -patient will be started on daptomycin 6 milligrams/kg every 24 hours to cover both MSSA and MRSA. -patient received a 1 g dose of ceftriaxone IM in the ER due to lack of vascular access. Second 1 g doses given on admission will continue ceftriaxone [address] 2. Chronic Venous hypertension bilateral lower extremities, present on admission. -patient with bilateral lower extremity edema that has been worsening over the last few days per patient report. -patient is on home Lasix 80 mg daily which will be continued with potassium supplementation 20 mEq twice daily. -apply leg wraps bilateral lower extremities. 3. Venous stasis leg ulcers, active -the patient has healing ulcers distal right lower leg and posterior ankle left lower leg approximately 2 cm in diameter. -left leg wound appears dry,redness extends around the left ankle approximately 5 cm. Try more crusted appearance to right lower leg wounds. -the patient has been receiving wound care from Dr. Reeves with an appointment scheduled for tomorrow. -wound care consult. 4. Acute kidney injury, present on admission -patient's last labs were in 2018 however baseline renal function consistently demonstrates a BUN approximately 15 and a creatinine of 0.8. -patient with increased edema and on diuretic therapy, now with BUN of 18 and creatinine 1.1. With an EGFR of 48 and 1+ proteinuria. -will rehydrate the patient gently at 125 cc per hour of normal saline. -antibiotics being prescribed to not require renal dosing 5. Morbid obesity, active -patient weight 100 37.5 kg with a height of 5 ft 5 in, BMI 50.44. -patient was severely impaired mobility minimal ambulation. -dietary to consult -PT and OT to consult and treat. The patient is admitted the hospital due to the severity and extent of her cellulitis, the risk of complications and adverse events. The patient is admitted as an inpatient with expected length of stay is greater than 2 midnights. Time Spent With Patient Time with patient: 25 - 35 minutes Scores GCS Obed coma scale eye opening: Spontaneous [place] coma scale verbal response: Orientated Obed coma scale motor response: Obey commands [place] coma scale total score: 15
[2018-10-23 23:39] VITALS: BP 137/43; PULSE 90; RESP 23; O2SAT 95
[2018-10-24] VITALS (7 sets, daily range): BP systolic 108–145; BP diastolic 49–75; PULSE 85–93; RESP 16–28; TEMP 36–37.6; O2SAT 91–98; BMI 51.0
[2018-10-24] MEDS: SODIUM CHLORIDE 0.9% 1,000 ML 125 ML IV (00:30)
[2018-10-24] MEDS: CEFTRIAXONE 1 GM/50 ML FROZ.PIGGY IV (00:31)
--- NOTE | 2018-10-24 00:52 | PC.NURSE ---
2355 NS bolus and levaquin inf continue at time of transfer to ICU
[2018-10-24] MEDS: SODIUM CHLORIDE 0.9% IV ×2 (00:56→22:58)
[2018-10-24] MEDS: DAPTOMYCIN IV ×2 (00:56→22:58)
[2018-10-24] MEDS: ACETAMINOPHEN 325 MG TABLET 650 MG PO ×3 (00:56→21:39)
[2018-10-24 01:14] LABS: Add Manual Diff / Slide Review NO; Basophils Absolute Auto 0 /uL (0-100); Basophils Percent Auto 0.1 % (0-2); Eosinophils Absolute Auto 0 /uL (0-450); Hematocrit 38.5 % (36-46); Hemoglobin 12.7 g/dL (12.0-16.0); Lymphocytes Absolute Auto 500 /uL (1100-4500); Lymphocytes Percent Auto 2.9 % (25-40); Mean Corpuscular HGB Conc 32.9 % (30-36); Mean Corpuscular Hemoglobin 28.6 PG (26-34); Mean Corpuscular Volume 86.9 fL (80-100); Monocytes Absolute Auto 600 /uL (0-900); Monocytes Percent Auto 3.5 % (3-14); Neutrophils Absolute Auto 16500 /uL (1500-7000); Neutrophils Percent Auto 93.5 % (50-75); Platelet Count 190 X10^3/uL (150-400); Red Blood Cell Count 4.43 X10^6/uL (4.0-5.2); Red Cell Distribution Width 15.1 % (11.6-14.8); White Blood Cell Count 17.6 X10^3/uL (4.5-11.0)
[2018-10-24 01:19] LABS: Blood Urea Nitrogen 16 mg/dL (7-17); Calcium 7.5 mg/dL (8.4-10.2); Carbon Dioxide 24 mmol/L (22-32); Chloride 110 mmol/L (98-107); Estimated Glomerular Filt Rate > 60.0 mL/min (>60); Glucose 123 mg/dL (80-110); HEMOLYSIS < 15 (0-50); Potassium 3.5 mmol/L (3.4-5.1); Sodium 139 mmol/L (137-145)
[2018-10-24 01:36] LABS: Procalcitonin 3.95 ng/mL (<0.5)
--- NOTE | 2018-10-24 06:31 | PC.NURSE ---
Patient admitted to ICU at midnight, oriented x3, fatigued, [place] and bit forgetful, follows directions. NS boluses complete, all IV abx infused, NS now at 125ml/hr as ordered. Temp 99.7, PO Tylenol given for fever and leg pain. Christos wraps placed to bilateral lower legs and elevated. Parmar catheter place, UAC sent to lab, blood cultures obtained and sent to lab as ordered. SR, 1st AVB, BP 136/49 and 122/59, RR 20s, SpO2 91-98%, crackles to RLL otherwise clear. See assessment notes.
[2018-10-24] MEDS: ENOXAPARIN 40 MG/0.4 ML SYRINGE SUBCUT ×2 (09:31→21:37)
[2018-10-24] MEDS: NYSTATIN POWDER 30 GM 1 APPLIC TOP ×2 (09:32→21:39)
[2018-10-24] MEDS: FUROSEMIDE 40 MG TABLET 80 MG PO (09:32)
[2018-10-24] MEDS: POTASSIUM CHLORIDE 20 MEQ TAB PO ×2 (09:32→21:39)
[2018-10-24 09:45] LABS: Enterococcus species Not Detected (Not Detect); Listeria monocytogenes Not Detected (Not Detect)
[2018-10-24 09:46] LABS: Acinetobacter baumannii Not Detected (Not Detect); Candida albicans Not Detected (Not Detect); Candida glabrata Not Detected (Not Detect); Candida krusei Not Detected (Not Detect); Candida parapsilosis Not Detected (Not Detect); Candida tropicalis Not Detected (Not Detect); E. coli Not Detected (Not Detect); Enterobacter cloacae complex Not Detected (Not Detect); Enterobacteriaceae species Not Detected (Not Detect); Haemophilus influenzae Not Detected (Not Detect); Neisseria meningitidis Not Detected (Not Detect); Proteus species Not Detected (Not Detect); Pseudomonas aeruginosa Not Detected (Not Detect); Serratia marcescens Not Detected (Not Detect); Staphylococcus species Not Detected (Not Detect); Streptococcus agalactiae (Gr B Detected (Not Detect); Streptococcus pneumonia Not Detected (Not Detect); Streptococcus pyogenes (Gr A) Not Detected (Not Detect); Streptococcus species Detected (Not Detect)
--- NOTE | 2018-10-24 11:20 | PT.IIE ---
Surgical History (Last Reviewed 10/23/18 @ 23:57 by ДМИТРИЙ Ritter) H/O umbilical hernia repair (Acute) Medical History (Last Reviewed 10/24/18 @ 03:38 by Faisal Vogel DO) Morbid obesity (Acute) Stasis dermatitis (Acute) Wound of lower extremity (Acute) Physical Therapy Inpatient Evaluation/Re-Eval M1 PT/OT-IP Prior Functional Status Start: 10/24/18 12:34 Freq: NEEDED Status: Active Protocol: Document 10/24/18 11:20 AB (Rec: 10/24/18 12:49 AB [id number]) Medical Review Prior Functional Status Medical History Reviewed Yes Communication able to make needs known Mobility and Gait pt stated that she is modified independent with all mobilities and ambulation using a FWW Social History Household Members children Living Arrangements Mobile home Number of Floors (Floors) One Floor Number of Stairs To Enter/Railing? has a ramp to enter Home Environment Standard Height Toilet Tub/Shower Ramp Home Equipment Front Wheel Walker Shower Seat with Backrest Hand Held Shower Additional Social History Comment pt lives with her 2 sons but they go to work M2 PT-IP Current Condition Start: 10/24/18 12:34 Freq: NEEDED Status: Active Protocol: Document 10/24/18 11:20 AB (Rec: 10/24/18 12:49 AB [id number]) Physical Therapy Current Condition Current Condition Evaluation Date 10/24/18 Treatment Diagnosis RLE cellulitis; difficulty in walking Onset Date M3 PT-IP Subjective Start: 10/24/18 12:34 Freq: NEEDED Status: Active Protocol: Document 10/24/18 11:20 AB (Rec: 10/24/18 12:49 AB [id number]) Subjective Physical Therapy Visit Type Type Initial Evaluation Visit Start Time 11:20 Visit Stop Time 11:51 Total Visit Minutes 31 Number of TESTER COMPRESSED GASES Visits 0 Physical Therapy Visit Comments Patient Comments pt agreeable to do PT Therapy Pain Assessment Pain When Pain Assessed At Rest Pain Present Pain Present Pain Reported Location bilater leg pain Intensity 5 Scale Used Numeric (1 - 10) Pain Management Techniques Timing of Activity with Medications M4 PT-IP Mobility and Gait Start: 10/24/18 12:34 Freq: NEEDED Status: Active Protocol: Document 10/24/18 11:20 AB (Rec: 10/24/18 12:49 AB [id number]) PT-Bed Mobility Assessment Supine to Sit Supine to Sit Standby Assistance Sit to Supine Sit to Supine Minimal Assistance PT-Transfer Assessment Sit to and From Stand Sit to and from Stand Moderate Assistance Equipment Transfer Assistive Device Gait Belt Front Wheeled Walker Orthotic/Prosthetic Devices or Brace: No Transfers Transfer Destination Bed Chair Transfer Technique Stand Step Pivot Transfer Ability Level of Assist Standby Assistance Contact Guard Assistance Comments Mobility Comments pt ocmpleted sit to stand from chair requiring mod A and 3 attempts. pt completed stand step transfer using FWW SBA to CGA. pt required min A to elevated LE up to the bed but completed supine to sit SBA. pt completed sit to stand from the bed SBA. pt ambulated in room but has to be cleaned up. informed NAC. pt remained standing using FWW for support SBA while NAC assisted with hygiene care. positioned pt back to the chair. call light and table placed next to pt. Gait Assessment Gait Gait Assistance Required: Standby Assistance Contact Guard Assist Distance (Feet) 20 Able to Maintain Weight Bearing Status Yes During Gait Assistive Devices Assistive Device Gait Belt Front Wheeled Walker Orthotic/Prosthetic Devices or Brace: No Gait Deviations General Gait Pattern Antalgic Decreased Stride Length Decreased Feet Clearance Step-to Gait Factors Limiting Gait Function Factors Limiting Gait Function Decreased Activity Tolerance Decreased Strength Pain Poor Balance Poor Safety Awareness PT-Balance Assessment Sitting Balance and Reactions Static Sitting Balance Ability Good Dynamic Sitting Balance Ability Good Standing Balance and Reactions Static Standing Balance Ability Fair Dynamic Standing Balance Ability Fair Device Used FWW M5 PT-IP Objective Assessments Start: 10/24/18 12:34 Freq: NEEDED Status: Active Protocol: Document 10/24/18 11:20 AB (Rec: 10/24/18 12:49 AB [id number]) Orientation Orientation/Cognition Level of Alertness Alert Orientation Name Language Function Ability No Deficits Noted Gross Range of Motion Lower Extremity ROM Assessment Within Functional Limits Strength Lower Extremity Strength Assessment Bilaterally Impaired Hip 4-/5 Knee 4-/5 Coordination Assessment Gross Coordination Gross Coordination WNL Sensation Assessment Sensation Gross Sensation WNL Muscle Tone Muscle Tone WNL Yes M6 PT-IP Treatment Start: 10/24/18 12:34 Freq: NEEDED Status: Active Protocol: Document 10/24/18 11:20 AB (Rec: 10/24/18 12:49 AB [id number]) Physical Therapy Treatment Education Education Provided Safety M7 PT-IP Assessment and Plan Start: 10/24/18 12:34 Freq: NEEDED Status: Active Protocol: Document 10/24/18 11:20 AB (Rec: 10/24/18 12:49 AB [id number]) PT Summary Assessment and Plan Potential Rehabilitation Potential Good Status of Condition at Evaluation Stable Summary Impairments Pain ROM Strength Balance Coordination Sensation Tone Bed Mobility Transfers Gait Activity Tolerance Assessment Summary pt requiring SBA to mod A with mobility but will likely improve during hospital stay. pt may go home when medically stable. Goals Bed Mobility Goal Independent Transfer Goal Independent Front Wheeled Walker Gait Goal Independent Front Wheel Walker Gait Distance 50 Days to Meet Goals 5 Frequency of Treatment Frequency Of Treatment Once a Day Treatment Plan Physical Therapy Treatment Plan Bed Mobility Training Transfer Training Gait Training Therapeutic Exercise Balance Retraining Discharge Planning Hot or Cold Pack Neuromuscular Re-ed Coordination Retraining Manual Therapy Other Recommendations and Next Treatment ambulation Focus Recommendations To Nursing Amount of Assist Needed 1 Person Assist Discharge Recommendations PT Discharge Recommendations Home with Assistance
--- NOTE | 2018-10-24 12:24 | CM.IDA ---
Initial DCP Assessment Note: Pt is a 78 yo female, resident of [place]. Pt now admitted w/worsening leg pain/ RLE cellulitis. PCP: Dr Beyer Payer: Medicare/[employer]. Reviewed chart and spoke w/ ZENAIDA Rankin today. It is expected that pt will require ongoing IV abx to treat her cellulitis and cultures have come back positive for Strep. According to assessment notes done June 2017; pt lives w/her 2 sons and grandson, dtr Nasima lives very near. DPOA (?) Pt has h/o [facility] and preferred [facility] for SNF choice in June 2017. ZENAIDA Rankin explains pt has been calm, cooperative and agreeable to care here. Nursing team is concerned about pt's home care because she comes in w/signs of poor chantal-care and poorly managed hygiene. Per nursing report, pt often sits in her urine for long lengths of time and stool was cleaned from folds in her skin this morning. Family work multimedia services coordinator. This MINERALOGY TEACHER following closely, pt would likely benefit from SNF stay w/ Med A coverage if she is agreeable and a SNF can be secured. Pt working w/ PT Sneha this morning, this MINERALOGY TEACHER will return Sunday to further assess. Spoke w/ PT Sneha after her session w/pt; pt able to follow commands, walks w/walker, pt admits to a sedentary exisitence at home. P: Further assessment expected Sunday10.25.18. HEATHER Maya Discharge Planning/Care Management CM Discharge Assessment Start: 10/24/18 12:07 Freq: Status: Active Protocol: Document 10/24/18 12:09 MATILDA (Rec: 10/24/18 12:24 MATILDA [id number]) Discharge Planning Assessment Assigned Repair Servicer HEATHER Javier DPNORM/Assigned Designee Name William Gomez, son, Dtr Nasima Contact Information William:[phone], Nasima: [phone] Advance Directives? No Advance Directives on File No History Provided By Medical Record Prior Living Arrangements Mobile home Household Members children Type of transporation used prior to Relies on Others admit Independent with ADL's No: Very sedentary, hygiene is not well managed Is patient alert and oriented? Yes Needs Assistance With Bathing Grooming Meal Prep Toileting Managing Medications Home Chores / Shopping Patient/Family Preference Retirement Facility Barriers to Discharge Yes Comment IV Abx, family works fulltime Discharge Plan Home Transportation Arrangement Pt has local son and Dtr who usually provide transport Additional Comment Pending further assessment Review Status In Process
--- NOTE | 2018-10-24 12:34 | P.PN_ITS ---
Subjective Date Patient Seen: 10/24/18 Interval history: Patient is 78-year-old female with severe obesity, stasis dermatitis, chronic leg ulcers followed at Wound Care, admitted with recurrent lower extremity cellulitis of the right leg. Patient notes no change in erythema of the right leg. Exam Vital Signs (past 8 hours): - 10/24/18 04:55 10/24/18 07:53 10/24/18 11:20 Temperature 96.8 F L 99.0 F Pulse Rate 87 86 Respiratory Rate 23 23 Blood Pressure 122/59 L 145/75 H Pulse Oximetry 96 93 94 Oxygen Delivery Method Room Air Oxygen Flow Rate 0 Narrative Exam Narrative: General: Alert and pleasant female in no acute distress Extremities: There is diffuse macular erythema of the right leg extending to upper thigh. There are chronic venous stasis changes with dry crusted wounds on bilateral lower extremities. Abdomen/pelvic: Also noted to have severe perineal erythema Billow abdominal pannus, and groin and perineal area Objective Labs Result Diagrams: 10/24/18 00:50 10/24/18 00:50 Labs: Laboratory Results - last 24 hr 10/23/18 10/23/18 10/23/18 18:59 18:59 18:59 WBC 23.2 H RBC 5.03 Hgb 14.5 Hct 43.5 MCV 86.5 MCH 28.7 MCHC 33.2 RDW 15.1 H Plt Count 234 Neut % (Auto) 94.1 H Lymph % (Auto) 2.4 L [place] % (Auto) 3.0 Eos % (Auto) 0.0 L Baso % (Auto) 0.5 Neut # (Auto) 44045 H Lymph # (Auto) 600 L [place] # (Auto) 700 Eos # (Auto) 0 Baso # (Auto) 100 Sodium 140 Potassium 4.2 Chloride 104 Carbon Dioxide 28 BUN 18 H Creatinine 1.10 H Estimated GFR 48.2 L BUN/Creatinine Ratio 16.4 Glucose 126 H Lactate Calcium 9.0 Troponin I < 0.012 Procalcitonin Nasal Screen MRSA (PCR) A. baumannii (PCR) Bere albicans (PCR) C. glabrata (PCR) C. krusei (PCR) C. parapsilosis (PCR) C. tropicalis (PCR) Enterobacteriac sp PCR E. cloacae complex PCR Enterococcus sp PCR E. coli (PCR) H. influenzae (PCR) Klebsiella oxytoca PCR Klebsiella pneumoniae List. monocytogenes PCR N. meningitidis (PCR) Proteus species (PCR) Serratia marcescens PCR Staphylococcus sp PCR Staph aureus (PCR) mecA-Methicil Res Gene Streptococcus sp PCR Group A Strep (PCR) Strep agalactiae (PCR) Strep pneumoniae (PCR) P. aeruginosa (PCR) Rhett/B-Vanco Res Genes KPC-Carbap Res Gene PCR 10/23/18 10/23/18 10/23/18 18:59 18:59 18:59 WBC RBC Hgb Hct MCV MCH MCHC RDW Plt Count Neut % (Auto) Lymph % (Auto) [place] % (Auto) Eos % (Auto) Baso % (Auto) Neut # (Auto) Lymph # (Auto) [place] # (Auto) Eos # (Auto) Baso # (Auto) Sodium Potassium Chloride Carbon Dioxide BUN Creatinine Estimated GFR BUN/Creatinine Ratio Glucose Lactate 1.6 Calcium Troponin I Procalcitonin 5.04 H Nasal Screen MRSA (PCR) A. baumannii (PCR) Not detected Bere albicans (PCR) Not detected C. glabrata (PCR) Not detected C. krusei (PCR) Not detected C. parapsilosis (PCR) Not detected C. tropicalis (PCR) Not detected Enterobacteriac sp PCR Not detected E. cloacae complex PCR Not detected Enterococcus sp PCR Not detected E. coli (PCR) Not detected H. influenzae (PCR) Not detected Klebsiella oxytoca PCR Not detected Klebsiella pneumoniae Not detected List. monocytogenes PCR Not detected N. meningitidis (PCR) Not detected Proteus species (PCR) Not detected Serratia marcescens PCR Not detected Staphylococcus sp PCR Not detected Staph aureus (PCR) Not detected mecA-Methicil Res Gene Not Reportable Streptococcus sp PCR Detected H Group A Strep (PCR) Not detected Strep agalactiae (PCR) Detected H Strep pneumoniae (PCR) Not detected P. aeruginosa (PCR) Not detected Rhett/B-Vanco Res Genes Not Reportable KPC-Carbap Res Gene PCR Not Reportable 10/24/18 10/24/18 10/24/18 00:30 00:50 00:50 WBC 17.6 H RBC 4.43 Hgb 12.7 Hct 38.5 MCV 86.9 MCH 28.6 MCHC 32.9 RDW 15.1 H Plt Count 190 Neut % (Auto) 93.5 H Lymph % (Auto) 2.9 L [place] % (Auto) 3.5 Eos % (Auto) 0.0 L Baso % (Auto) 0.1 Neut # (Auto) 90585 H Lymph # (Auto) 500 L [place] # (Auto) 600 Eos # (Auto) 0 Baso # (Auto) 0 Sodium Potassium Chloride Carbon Dioxide BUN Creatinine Estimated GFR BUN/Creatinine Ratio Glucose Lactate Calcium Troponin I Procalcitonin 3.95 H Nasal Screen MRSA (PCR) Negative for mrsa A. baumannii (PCR) Bere albicans (PCR) C. glabrata (PCR) C. krusei (PCR) C. parapsilosis (PCR) C. tropicalis (PCR) Enterobacteriac sp PCR E. cloacae complex PCR Enterococcus sp PCR E. coli (PCR) H. influenzae (PCR) Klebsiella oxytoca PCR Klebsiella pneumoniae List. monocytogenes PCR N. meningitidis (PCR) Proteus species (PCR) Serratia marcescens PCR Staphylococcus sp PCR Staph aureus (PCR) mecA-Methicil Res Gene Streptococcus sp PCR Group A Strep (PCR) Strep agalactiae (PCR) Strep pneumoniae (PCR) P. aeruginosa (PCR) Rhett/B-Vanco Res Genes KPC-Carbap Res Gene PCR 10/24/18 00:50 WBC RBC Hgb Hct MCV MCH MCHC RDW Plt Count Neut % (Auto) Lymph % (Auto) [place] % (Auto) Eos % (Auto) Baso % (Auto) Neut # (Auto) Lymph # (Auto) [place] # (Auto) Eos # (Auto) Baso # (Auto) Sodium 139 Potassium 3.5 Chloride 110 H Carbon Dioxide 24 BUN 16 Creatinine 0.80 Estimated GFR > 60.0 BUN/Creatinine Ratio 20.0 Glucose 123 H Lactate Calcium 7.5 L Troponin I Procalcitonin Nasal Screen MRSA (PCR) A. baumannii (PCR) Bere albicans (PCR) C. glabrata (PCR) C. krusei (PCR) C. parapsilosis (PCR) C. tropicalis (PCR) Enterobacteriac sp PCR E. cloacae complex PCR Enterococcus sp PCR E. coli (PCR) H. influenzae (PCR) Klebsiella oxytoca PCR Klebsiella pneumoniae List. monocytogenes PCR N. meningitidis (PCR) Proteus species (PCR) Serratia marcescens PCR Staphylococcus sp PCR Staph aureus (PCR) mecA-Methicil Res Gene Streptococcus sp PCR Group A Strep (PCR) Strep agalactiae (PCR) Strep pneumoniae (PCR) P. aeruginosa (PCR) Rhett/B-Vanco Res Genes KPC-Carbap Res Gene PCR Assessment & Plan Assessment & Plan narrative: Patient is 78-year-old female with severe obesity, stasis dermatitis, chronic leg ulcers followed at Wound Care, admitted with recurrent lower extremity cellulitis of the right leg. 1. Acute cellulitis right lower extremity, present on admission. -leg appearance unchanged but WBC and procalcitonin improving -patient has previously had culture results including Staph, Pseudomonas and Proteus and is allergic to vancomycin, amoxicillin nafcillin and Pipracillin -currently on broad-spectrum coverage with daptomycin 6 milligrams/kg every 24 hours and ceftriaxone 2 g daily to treat possible MRSA and gram-negative organisms. 2. Bacteremia with group B Streptococcus -adequately covered with ceftriaxone 2 g daily 2. Chronic Venous hypertension bilateral lower extremities, present on admission. -patient with bilateral lower extremity edema that has been worsening over the last few days per patient report. -patient is on home Lasix 80 mg daily which is continued with potassium supplementation 20 mEq twice daily. -apply leg wraps bilateral lower extremities. 3. Venous stasis leg ulcers, active -the patient has healing ulcers distal right lower leg and posterior ankle left lower leg approximately 2 cm in diameter. -left leg wound appears dry,redness extends around the left ankle approximately 5 cm. Try more crusted appearance to right lower leg wounds. -the patient has been receiving wound care from Dr. Reeves -wound care consult. 4. Mild renal insufficiency, present on admission -creatinine 1.1 on admit improved to 0.8 following a.m. after IV hydration, but does not meet TRI criteria 5. Morbid obesity, active -patient weight 137.5 kg with a height of 5 ft 5 in, BMI 50.44. -patient was severely impaired mobility minimal ambulation. -dietary to consult -PT and OT to consult and treat. 6. Peroneal mucositis -treat with topical nystatin and attention to hygiene -Parmar catheter placed on admission to help keep this area dry and allowed to heal but catheter can probably be removed on Sunday
--- NOTE | 2018-10-24 14:28 | PC.NURSE ---
PT TOOK TYLENOL THIS AM FOR C/O OF GENERALIZED AND BILAT LEG PAIN- THIS HAS BEEN EFFECTIVE. BATHED VIGOROUSLY THIS AM WHEN UP TO BSC- SHE REALLY WISHED TO USE BEDPAN BUT THIS RN STRONGLY ENFORCED THE MATTER OF GETTING UP FROM BED- SHE HAS BEEN COMPLIANT AND BEEN IN CHAIR MOST OF SHIFT FOLLOWING THIS- BILAT LOWER LEGS WRAPPED WITH BERNARDINO BANDAGES AWAITING FOR WCC CONSULT. SMALL INCONT SMEARS OF STOOL NOTED BUT ALSO ABLE OT MANAGE BSC WITH ASSIST- NYSTATIN POWDER BENEATH PANNUS AND GROIN AREA- ALSO, PLACED SILVER INFUSED INTERDRY CLOTH BETWEEN SKIN FOLDS. WORKING WITH PT/OT
[2018-10-24 14:48] LABS: Appearance Urine UA CLOUDY; Bilirubin Urine UA NEGATIVE (NEGATIVE); Color Urine UA YELLOW; Glucose Urine UA NEGATIVE (Negative); Ketones Urine UA TRACE (NEGATIVE); Leukocyte Esterase Urine UA 1+ (NEGATIVE); Nitrite Urine UA NEGATIVE (Negative); Occult Blood Urine UA 2+ (Negative); Protein Urine UA TRACE (Negative); Specific Gravity Urine UA 1.025 (1.000-1.035); Urobilinogen Urine UA 0.2 E.U./dL (0.2)
[2018-10-24 15:42] LABS: Bacteria Urine Occasional (0-1); RBC Urine 0-1/HPF (0-5/HPF); Squamous Epithelial Cell Urine >30 /HPF (0-5/HPF); WBC Urine 5-10/HPF (0-5/HPF)
--- NOTE | 2018-10-24 17:25 | OT.IP.TRT ---
Current Diagnoses Cellulitis of right lower limb (10/23/18) Occupational Therapy Treatment Note M3 OT- IP Subjective and Pain Start: 10/24/18 17:23 Freq: Status: Active Protocol: Document 10/24/18 17:24 [facility] (Rec: 10/24/18 17:25 [facility] [id number]) OT- Subjective Occupational Therapy Visit Type Type Patient Refusal Notes Attempted to see pt for OT eval, pt asleep , awakened and pt states wanting to be seen tomorrow for OT eval.
[2018-10-24] MEDS: SODIUM CHLORIDE 0.9% FLUSH 10 ML IV (21:38)
[2018-10-24] MEDS: CEFTRIAXONE 2 GM/50 ML FROZ.PIGGY IV (22:20)
--- NOTE | 2018-10-25 07:19 | PC.NURSE ---
Wound Ostomy Nurse Consult Note We were consulted yesterday to come up and see Tiffanie, yet I was unavailable to see her. I did call at 1830 and spoke with her nurse and Tiffanie was stable. This morning Tiffanie is awake because she is getting a blood draw. Tiffanie has been a halfway wound care patient at the clinic and actually had an appointment with us yesterday. Tiffanie is awake and alert. She states that she had her son call EMS because, my legs gave out. She had nicole wrap on both legs that are not the full length of her legs and telfa over her wounds. I removed the nicole wraps and telfa dressings. I cleaned her wounds with Normal Saline, pat dry and place a border foam over each wound. I also took pictures of the wounds and measured her edema in her legs. Her Right leg is hot and has erythema,which has been marked with a black marker. Her right foot has erythema with some purple discoloration. Her Left leg also has erythema and is warm to touch and is also marked with a black marker. Right Leg ulcer measures 2.0 x 1.8x 0.2 with 98% slough. No granulation tissue and small amount of yellow drainage. Right Leg edema measurements: Foot 27, Ankle 29, Calf 61.5. Left leg edema measurements: Foot: 26, Ankle: 26, Calf: 56. Measurements were taken from the toe to foot up by 9, from the heel to ankle 13 and from the heel to calf up 37. I will give a report to Dr. Fontanez. Recommend dressing change: Clean with Normal saline, pat dry, apply border foam and change daily. I would recommend not using compression wraps at this time until infection has subsided.
[2018-10-25 07:57] VITALS: BP 115/60; PULSE 90; RESP 20; TEMP 36.7; O2SAT 96
[2018-10-25 08:47] LABS: Add Manual Diff / Slide Review NO; Basophils Absolute Auto 0 /uL (0-100); Basophils Percent Auto 0.2 % (0-2); Eosinophils Absolute Auto 100 /uL (0-450); Eosinophils Percent Auto 1.1 % (2-4); Hematocrit 41.7 % (36-46); Hemoglobin 14.1 g/dL (12.0-16.0); Lymphocytes Absolute Auto 600 /uL (1100-4500); Lymphocytes Percent Auto 6.2 % (25-40); Mean Corpuscular HGB Conc 33.7 % (30-36); Mean Corpuscular Hemoglobin 29.3 PG (26-34); Mean Corpuscular Volume 86.8 fL (80-100); Monocytes Absolute Auto 600 /uL (0-900); Monocytes Percent Auto 5.3 % (3-14); Neutrophils Absolute Auto 9200 /uL (1500-7000); Neutrophils Percent Auto 87.2 % (50-75); Platelet Count 178 X10^3/uL (150-400); Red Cell Distribution Width 15.3 % (11.6-14.8); White Blood Cell Count 10.5 X10^3/uL (4.5-11.0)
[2018-10-25 08:51] LABS: BUN Creatinine Ratio 18.6 (6-22); Blood Urea Nitrogen 13 mg/dL (7-17); Calcium 7.8 mg/dL (8.4-10.2); Carbon Dioxide 24 mmol/L (22-32); Chloride 108 mmol/L (98-107); Estimated Glomerular Filt Rate > 60.0 mL/min (>60); Glucose 90 mg/dL (80-110); HEMOLYSIS < 15 (0-50); Potassium 3.7 mmol/L (3.4-5.1); Sodium 142 mmol/L (137-145)
[2018-10-25] MEDS: ENOXAPARIN 40 MG/0.4 ML SYRINGE SUBCUT ×2 (08:52→20:10)
[2018-10-25] MEDS: FUROSEMIDE 40 MG TABLET 80 MG PO (08:53)
--- NOTE | 2018-10-25 08:53 | P.PN_ITS ---
Subjective Date Patient Seen: 10/25/18 Time Patient Seen: 08:53 Interval history: She is seen today to follow up the left leg cellulitis and open ulcers. She is being seen by wound care. She tells me she lives in [place] in her own house with 2 of her sons. Her urine and her blood cultures are growing strep agilactae-group B. There are no wound cultures in process. Exam Vital Signs (past 8 hours): - 10/25/18 07:57 Temperature 98.0 F Pulse Rate 90 Respiratory Rate 20 Blood Pressure 115/60 Pulse Oximetry 96 Oxygen Delivery Method Room Air Oxygen Flow Rate 0 Narrative Exam Narrative: She is alert, oriented x3, in no apparent distress Heart is regular rate and rhythm without murmur Lungs are clear to auscultation bilaterally. The redness on the left leg appears to be diminishing. There is a posterior calf ulcer that is covered with a dressing. There is splotchy pink discoloration on the right lower leg with an ulcer on the lateral aspect covered by a dressing. The ankle edema pattern is unusual with very narrow ankles and overly generous calves. Objective Labs Result Diagrams: 10/25/18 05:00 10/25/18 05:00 Labs: Laboratory Results - last 24 hr 10/23/18 10/23/18 00:30 18:59 Urine Color Yellow Urine Appearance Cloudy Urine pH 5.0 Ur Specific [place] 1.025 Urine Protein Trace H Urine Glucose (UA) Negative Urine Ketones Trace H Urine Occult Blood 2+ H Urine Nitrate Negative Urine Bilirubin Negative Urine Urobilinogen 0.2 Ur Leukocyte Esterase 1+ H Urine RBC 0-1/hpf Urine WBC 5-10/hpf H Ur Squamous Epith Cells >30 /hpf H Urine Bacteria Occasional (0-1) Ur Culture Indicated? Culture not indicate A. baumannii (PCR) Not detected Bere albicans (PCR) Not detected C. glabrata (PCR) Not detected C. krusei (PCR) Not detected C. parapsilosis (PCR) Not detected C. tropicalis (PCR) Not detected Enterobacteriac sp PCR Not detected E. cloacae complex PCR Not detected Enterococcus sp PCR Not detected E. coli (PCR) Not detected H. influenzae (PCR) Not detected Klebsiella oxytoca PCR Not detected Klebsiella pneumoniae Not detected List. monocytogenes PCR Not detected N. meningitidis (PCR) Not detected Proteus species (PCR) Not detected Serratia marcescens PCR Not detected Staphylococcus sp PCR Not detected Staph aureus (PCR) Not detected mecA-Methicil Res Gene Not Reportable Streptococcus sp PCR Detected H Group A Strep (PCR) Not detected Strep agalactiae (PCR) Detected H Strep pneumoniae (PCR) Not detected P. aeruginosa (PCR) Not detected Rhett/B-Vanco Res Genes Not Reportable KPC-Carbap Res Gene PCR Not Reportable Assessment & Plan Assessment & Plan narrative: 1. Acute cellulitis right lower extremity, present on admission. -leg appearance improving -patient has previously had culture results including Staph, Pseudomonas and Proteus and is allergic to vancomycin, amoxicillin nafcillin and Pipracillin -she has been treated with both daptomycin and ceftriaxone but will rationalize, based on cultures to just the ceftriaxone at this time 2. Bacteremia with group B Streptococcus -plan 2 weeks of ceftriaxone 2 g Q 24 hours. She already has a PICC line. 2. Chronic Venous hypertension bilateral lower extremities, present on admission. -patient with bilateral lower extremity edema that appears to be improving now -patient is on home Lasix 80 mg daily which is continued with potassium supplementation 20 mEq twice daily. -apply leg wraps bilateral lower extremities. 3. Venous stasis leg ulcers, active -the patient has healing ulcers distal right lower leg and posterior ankle left lower leg approximately 2 cm in diameter. -on admission the left leg wound appears dry,redness extends around the left ankle approximately 5 cm. -the patient has been receiving wound care from Dr. Reeves -wound care consult. 4. Mild renal insufficiency, present on admission -creatinine 1.1 on admit improved to 0.8 following a.m. after IV hydration. 5. Morbid obesity, active -patient weight 137.5 kg with a height of 5 ft 5 in, BMI 50.44. -patient has severely impaired mobility minimal ambulation. -dietary consult -PT and OT to consult and treat. 6. Peroneal mucositis -treat with topical nystatin and attention to hygiene -Parmar catheter placed on admission to help keep this area dry and allowed to heal but catheter can probably be removed on Sunday
[2018-10-25] MEDS: POTASSIUM CHLORIDE 20 MEQ TAB PO ×2 (08:54→20:10)
[2018-10-25] MEDS: SODIUM CHLORIDE 0.9% FLUSH 10 ML IV ×2 (08:55→19:24)
[2018-10-25] MEDS: NYSTATIN POWDER 30 GM 1 APPLIC TOP ×2 (08:56→20:09)
[2018-10-25 09:12] LABS: Procalcitonin 2.25 ng/mL (<0.5)
--- NOTE | 2018-10-25 10:02 | OT.IP.EVAL ---
Current Diagnoses Cellulitis of right lower limb (10/23/18) Past Medical History (Last Reviewed 10/24/18 @ 03:38 by Faisal Vogel DO) Morbid obesity (Acute) Stasis dermatitis (Acute) Wound of lower extremity (Acute) Surgical History (Last Reviewed 10/23/18 @ 23:57 by ДМИТРИЙ Ritter) H/O umbilical hernia repair (Acute) Occupational Therapy Inpatient Evaluation/Re-Eval M1 PT/OT-IP Prior Functional Status Start: 10/24/18 17:23 Freq: NEEDED Status: Active Protocol: Document 10/25/18 09:40 [facility] (Rec: 10/25/18 10:02 [facility] [id number]) Medical Review Prior Functional Status Medical History Reviewed Yes Communication able to make needs known Mobility and Gait pt stated that she is modified independent with all mobilities and ambulation using a FWW Activities of Daily Living and IADL's Pt states completely independent with all ADl's and IADl need at home including hygiene needs per pt. Prior Functional Level (Other details) Pt has a lift recliner at home . Social History Household Members children Living Arrangements Mobile home Number of Floors (Floors) One Floor Number of Stairs To Enter/Railing? has a ramp to enter Home Environment Standard Height Toilet Tub/Shower Ramp Home Equipment Front Wheel Walker Shower Seat with Backrest Hand Held Shower Additional Social History Comment pt lives with her 2 sons but they go to work M2 OT-IP Current Condition Start: 10/24/18 17:23 Freq: Status: Active Protocol: Document 10/25/18 09:40 [facility] (Rec: 10/25/18 10:02 [facility] [id number]) Occupational Therapy Current Condition Current Condition Evaluation Date 10/25/18 Treatment Diagnosis Acute cellulitis, weakness Diagnosis Onset Date 10/23/18 Weight Bearing Status Weight Bearing Status Weight Bear as Tolerated M3 OT- IP Subjective and Pain Start: 10/24/18 17:23 Freq: Status: Active Protocol: Document 10/25/18 09:40 [facility] (Rec: 10/25/18 10:02 [facility] [id number]) OT- Subjective Occupational Therapy Visit Type Type Initial Evaluation Visit Start Time 09:15 Visit Stop Time 09:35 Total Visit Minutes 20 Occupational Therapy Visit Comments Patient Comments Pt insistent that she is able to do all OT needs on her own, but agreeable to get up. Patient/Caregiver Goals To go home. OT Pain Assessment Pain When Pain Assessed At Rest Pain Present Pain Present Denied Pain M4 OT- IP ADL's Start: 10/24/18 17:23 Freq: Status: Active Protocol: Document 10/25/18 09:40 [facility] (Rec: 10/25/18 10:02 [facility] [id number]) OT LIT-Sayn-Xrefjnl General Evaluation Self-Feeding Ability Independent OT ADL-Grooming Comments OT Grooming Comments Pt states already completed grooming needs earlier. OT ADL-Dressing General Eval Lower Body Dressing Ability Maximum Assistance Areas Needing Assistance Socks Comments OT Dressing Comments When asked pt to doff socks, pt states unable to do so as feet swollen but states able to angelina her velcro slipper on at home on her own. OT ADL-Toileting General Evaluation Toileting Ability Maximum Assistance Areas Needing Assistance Perform Perineal Hygiene Devices Toileting Assistive Devices Commode Comments OT Toileting Comments Noted pad underneath pt a bit soiled therefore asked pt to sit on BSC and with FWW stand to do own hygiene needs like she does at home. Pt states unable to do so in the hospital but states capable at home. Noted skin breakdown underneath, nursing aware and came to assist to clean and place barrier cream/medication on her. Educated pt on toilet aid and pt states does not need anything and insists that she can do it all herself at home. M5 OT- IP IADL's Start: 10/24/18 17:23 Freq: Status: Active Protocol: Document 10/25/18 09:40 [facility] (Rec: 10/25/18 10:02 [facility] [id number]) OT-Instrumental Activities of Daily Living Home Safety Awareness Home Safety Comments Pt insists that she can do all needs at home, I did it all . Questionable historian and to clarify with pt's family of pt's level of independence. M6 OT- IP Functional Cognition Start: 10/24/18 17:23 Freq: Status: Active Protocol: Document 10/25/18 09:40 [facility] (Rec: 10/25/18 10:02 [facility] [id number]) Cognitive Factors Limiting Selfcare Function Cognitive Ability Level of Alertness Alert Patient Orientation Name Place Situation Attention Span Ability Capable of Focused Attention Capable of Sustained Attention Ability to Follow Commands Able to Follow One Step Commands Memory Description Short Term Impaired Safety Awareness Underestimates Need for Assistance Problem Solving Ability Unable to Identify Errors Needs Assist to Identify Solutions Cognitive Comments Cognitive Assessment Comments Pt able to follow simple commands, decreased overall safety awareness for hygiene needs and feels that she is independent to do on her own at home, even though staff is needing to assist her while in the hospital. OT- Vision and Hearing OT- Hearing Assessment OT- Hearing Assessment Hearing Impaired M7 OT- IP Mobility and Balance Start: 10/24/18 17:23 Freq: Status: Active Protocol: Document 10/25/18 09:40 [facility] (Rec: 10/25/18 10:02 [facility] [id number]) OT-Transfer Assessment Sit to and From Stand Sit to and from Stand Minimal Assistance Transfers Transfer Ability Contact Guard Assistance Technique Transfer Destination Bedside Commode Chair Transfer Technique Stand Step Pivot Devices Transfer Assistive Devices Gait Belt Front Wheeled Walker Comments Mobility Comments Pt needing to use momentum to assist to stand with MARIA DEL CARMEN to FWW and CGA to walk with FWW to BSC. Pt tends to walk with flexed posture with FWW and easily tires. OT- Gait Assessment Gait Gait Assistance Required: Contact Guard Assist Distance (Feet) 10 Assistive Devices Assistive Device Gait Belt Front Wheeled Walker Comments Gait Ability Comments Pt able to walk 5ft x2 to bsc and back to recliner. OT- Balance Assessment Sitting Balance and Reactions Static Sitting Balance Ability Normal Dynamic Sitting Balance Ability Good Standing Balance and Reactions Static Standing Balance Ability Fair M8 OT- IP Objective Assessments Start: 10/24/18 17:23 Freq: Status: Active Protocol: Document 10/25/18 09:40 [facility] (Rec: 10/25/18 10:02 [facility] [id number]) OT Gross Range of Motion Upper Extremity Range of Motion Assessment Within Functional Limits OT Strength Comments Strength Comments BUE 4+/5 M9 OT- IP Assessment and Plan Start: 10/24/18 17:23 Freq: Status: Active Protocol: Document 10/25/18 09:40 [facility] (Rec: 10/25/18 10:02 [facility] [id number]) OT Summary Assessment and Plan Potential Rehabilitation Potential Fair Analytic Complexity at Evaluation Moderate Summary OT Impairments Strength Balance Functional Cognition Functional Mobility Grooming Dressing Toileting Bathing Toilet Transfers Shower Transfers Progress Towards Goals Slow Progress due to Medical Issues Slow Progress due to Activity Tolerance Slow Progress due to Cognition Assessment Summary Pt mod complexity and main barrier is decreased abilty to do her own hygiene needs, decreased endurance, strength, and activity tolerance. Pt would benefit from skilled rehab to help increase overall strength and endurance for ADL and functional mobility needs versus home with home health and assist. Pt wanting to go home. Goals Toileting Goal Independent Bathing Goal Minimal Assistance Toilet Transfer Goal Independent Shower Transfer Goal Standby Assistance Days to Meet Goals 5 Frequency of Treatment Frequency Of Treatment Once a Day Treatment Plan OT Treatment Plan ADL Training Functional Cognition Training Functional Mobility Patient/Family Education Discharge Planning Other Treatment Recommendations and Next ADL hygiene and activity Treatment Focus tolerance. Discharge Recommendations OT Discharge Recommendations Home with Assistance Home Health SNF Rehab Home Equipment Needs Toilet aid
--- NOTE | 2018-10-25 10:50 | PT.IPTN ---
Current Diagnoses Cellulitis of right lower limb (10/23/18) Physical Therapy Treatment Note M2 PT-IP Current Condition Start: 10/24/18 12:34 Freq: NEEDED Status: Active Protocol: Document 10/24/18 11:20 AB (Rec: 10/24/18 12:49 AB [id number]) Physical Therapy Current Condition Current Condition Evaluation Date 10/24/18 Treatment Diagnosis RLE cellulitis; difficulty in walking Onset Date M3 PT-IP Subjective Start: 10/24/18 12:34 Freq: NEEDED Status: Active Protocol: Document 10/25/18 10:50 AB (Rec: 10/25/18 11:11 AB [id number]) Subjective Physical Therapy Visit Type Type Treatment Note Visit Start Time 10:50 Visit Stop Time 11:00 Therapy Pain Assessment Pain When Pain Assessed At Rest Location bilater leg pain Scale Used 10 on RLE; 10 LLE M4 PT-IP Mobility and Gait Start: 10/24/18 12:34 Freq: NEEDED Status: Active Protocol: Document 10/25/18 10:50 AB (Rec: 10/25/18 11:11 AB [id number]) PT-Transfer Assessment Sit to and From Stand Sit to and from Stand Standby Assistance 1 Person Assistance Equipment Transfer Assistive Device Front Wheeled Walker Gait Assessment Gait Gait Assistance Required: Standby Assistance Distance (Feet) 40 Able to Maintain Weight Bearing Status Yes During Gait Assistive Devices Assistive Device Front Wheeled Walker Orthotic/Prosthetic Devices or Brace: No Gait Deviations General Gait Pattern Antalgic Decreased Stride Length Decreased Feet Clearance Step-to Gait Factors Limiting Gait Function Factors Limiting Gait Function Decreased Activity Tolerance Decreased Strength Pain Poor Balance Comments Gait Comments Pt ambulated 40 ft using FWW SBA. refused to do further ambulation due to c/o BLE pain . M5 PT-IP Objective Assessments Start: 10/24/18 12:34 Freq: NEEDED Status: Active Protocol: Document 10/24/18 11:20 AB (Rec: 10/24/18 12:49 AB [id number]) Orientation Orientation/Cognition Level of Alertness Alert Orientation Name Language Function Ability No Deficits Noted Gross Range of Motion Lower Extremity ROM Assessment Within Functional Limits Strength Lower Extremity Strength Assessment Bilaterally Impaired Hip 4-/5 Knee 4-/5 Coordination Assessment Gross Coordination Gross Coordination WNL Sensation Assessment Sensation Gross Sensation WNL Muscle Tone Muscle Tone WNL Yes M6 PT-IP Treatment Start: 10/24/18 12:34 Freq: NEEDED Status: Active Protocol: Document 10/24/18 11:20 AB (Rec: 10/24/18 12:49 AB [id number]) Physical Therapy Treatment Education Education Provided Safety M7 PT-IP Assessment and Plan Start: 10/24/18 12:34 Freq: NEEDED Status: Active Protocol: Document 10/25/18 10:50 AB (Rec: 10/25/18 11:11 AB [id number]) PT Summary Assessment and Plan Potential Rehabilitation Potential Fair Summary Impairments Pain ROM Strength Balance Coordination Sensation Tone Cognition Bed Mobility Transfers Gait Activity Tolerance Progress Towards Goals Slow Progress due to Pain Assessment Summary pt requiring SBA with mobility but presents with decrease activity tolerance with pain limiting activity. pt plans to go home and will be by herself most of the day due to her sons are working. pt may go home when medically stable Goals Bed Mobility Goal Independent Transfer Goal Independent Front Wheeled Walker Gait Goal Independent Front Wheel Walker Gait Distance 75 Days to Meet Goals 5 Frequency of Treatment Frequency Of Treatment Once a Day Treatment Plan Physical Therapy Treatment Plan Bed Mobility Training Transfer Training Gait Training Therapeutic Exercise Balance Retraining Discharge Planning Hot or Cold Pack Neuromuscular Re-ed Coordination Retraining Manual Therapy Other Recommendations and Next Treatment ambulation Focus Recommendations To Nursing Amount of Assist Needed Standby Assistance Discharge Recommendations PT Discharge Recommendations Home with Assistance
[2018-10-25 15:15] VITALS: BP 149/66; PULSE 84; RESP 18; TEMP 37.2; O2SAT 97
[2018-10-25] MEDS: CEFTRIAXONE 2 GM/50 ML FROZ.PIGGY IV (22:42)
[2018-10-25 23:48] VITALS: BP 110/87; PULSE 91; RESP 20; TEMP 37.1; O2SAT 93
[2018-10-26 07:00] VITALS: BP 124/54; PULSE 80; RESP 18; TEMP 37.6; O2SAT 95
[2018-10-26] MEDS: ACETAMINOPHEN 325 MG TABLET 650 MG PO (07:37)
[2018-10-26] MEDS: SODIUM CHLORIDE 0.9% FLUSH 10 ML IV (07:38)
[2018-10-26] MEDS: FUROSEMIDE 40 MG TABLET 80 MG PO (07:38)
[2018-10-26] MEDS: ENOXAPARIN 40 MG/0.4 ML SYRINGE SUBCUT ×2 (07:39→21:08)
[2018-10-26] MEDS: POTASSIUM CHLORIDE 20 MEQ TAB PO ×2 (07:39→21:09)
[2018-10-26] MEDS: NYSTATIN POWDER 30 GM 1 APPLIC TOP ×2 (07:40→21:09)
--- NOTE | 2018-10-26 08:50 | PM.PN.1 ---
Subjective Date Patient Seen: 10/26/18 Time Patient Seen: 08:50 Interval history: She is seen today to follow-up her cellulitis and valvular heart disease. Exam Vital Signs (past 8 hours): - 10/26/18 07:00 Temperature 99.6 F Pulse Rate 80 Respiratory Rate 18 Blood Pressure 124/54 L Pulse Oximetry 95 Oxygen Delivery Method Room Air Oxygen Flow Rate 0 Narrative Exam Narrative: Alert and oriented x3, agreeable and in no apparent distress. Heart is regular rate and rhythm with a 2/6 systolic ejection murmur Lungs are clear to auscultation bilaterally Diminishing edema of lower legs with a decrease in the diffuse pink redness to the left lower leg and a decrease in the intensity of the reddened areas with ulcers on the right lower leg Objective Labs Result Diagrams: 10/25/18 05:00 10/25/18 05:00 Labs: Laboratory Results - last 24 hr 10/25/18 10/25/18 10/25/18 05:00 05:00 05:00 WBC 10.5 RBC 4.80 Hgb 14.1 Hct 41.7 MCV 86.8 MCH 29.3 MCHC 33.7 RDW 15.3 H Plt Count 178 Neut % (Auto) 87.2 H Lymph % (Auto) 6.2 L [place] % (Auto) 5.3 Eos % (Auto) 1.1 L Baso % (Auto) 0.2 Neut # (Auto) 9200 H Lymph # (Auto) 600 L [place] # (Auto) 600 Eos # (Auto) 100 Baso # (Auto) 0 Sodium 142 Potassium 3.7 Chloride 108 H Carbon Dioxide 24 BUN 13 Creatinine 0.70 Estimated GFR > 60.0 BUN/Creatinine Ratio 18.6 Glucose 90 Calcium 7.8 L Procalcitonin 2.25 H Assessment & Plan Assessment & Plan narrative: 1. Acute cellulitis right lower extremity, present on admission. -leg appearance improving daily -patient has previously had culture results including Staph, Pseudomonas and Proteus and is allergic to vancomycin, amoxicillin nafcillin and Pipracillin -she has been treated with both daptomycin and ceftriaxone but will rationalize, based on cultures to just the ceftriaxone at this time 2. Bacteremia with group B Streptococcus -plan 2 weeks of ceftriaxone 2 g Q 24 hours. She already has a PICC line. -she will need correction facility to complete the 2 weeks. 2. Chronic Venous hypertension bilateral lower extremities, present on admission. -patient with bilateral lower extremity edema that appears to be improving now -patient is on home Lasix 80 mg daily which is continued with potassium supplementation 20 mEq twice daily. -apply leg wraps bilateral lower extremities. 3. Venous stasis leg ulcers, active -the patient has healing ulcers distal right lower leg and posterior ankle left lower leg approximately 2 cm in diameter. -on admission the left leg wound appears dry,redness extends around the left ankle approximately 5 cm. -the patient has been receiving wound care from Dr. Reeves -wound care consulting. 4. Acute Kidney Injury (Mild renal insufficiency), present on admission, now resolved -creatinine 1.1 on admit improved to 0.8 following a.m. after IV hydration. 5. Morbid obesity, active -patient weight 137.5 kg with a height of 5 ft 5 in, BMI 50.44. -patient has severely impaired mobility minimal ambulation. -dietary consult -PT and OT to consult and treat. 6. Peroneal mucositis -treat with topical nystatin and attention to hygiene -Parmar catheter placed on admission to help keep this area dry and allowed to heal but catheter can probably be removed on Sunday
--- NOTE | 2018-10-26 09:45 | PC.NURSE ---
Addendum entered by Adelita Linder R.N. 10/26/18 14:29: Pt and son met with [employer] and are agreeable to d/c to [facility] for medical support, wound care, ect. Allyven to BLE changed after shower, compression wraps off per wound care recommendation. Original Note: Am shift Pt reports pain to RLE >LLE, APAP given with AM meds. Scaling, BLE, erythema, R>L , allyven to posterior calves lifting, but clean and dry. Pt agreeable to shower this AM, dressing change will follow. Pannus with redness, odor and nystatin reapplied, OA noted, per skin charting. Pt needs encouragement for ADLs, shower initially refused. Hygiene and care are not important per Pt, educated on skin break down and quality skin care regime. Pt denies pain while up to shower. Plan to continue with PT until d/c to home
--- NOTE | 2018-10-26 12:01 | PT.IPTN ---
Current Diagnoses Cellulitis of right lower limb (10/23/18) Physical Therapy Treatment Note M2 PT-IP Current Condition Start: 10/24/18 12:34 Freq: NEEDED Status: Active Protocol: Document 10/24/18 11:20 AB (Rec: 10/24/18 12:49 AB [id number]) Physical Therapy Current Condition Current Condition Evaluation Date 10/24/18 Treatment Diagnosis RLE cellulitis; difficulty in walking Onset Date M3 PT-IP Subjective Start: 10/24/18 12:34 Freq: NEEDED Status: Active Protocol: Document 10/26/18 11:59 AB (Rec: 10/26/18 12:01 AB [id number]) Subjective Physical Therapy Visit Type Type Patient Refusal Notes pt refused PT. stated that she just walked with nurses and just had a shower. agreed to ambulate later.
--- NOTE | 2018-10-26 13:35 | PT.IPTN ---
Current Diagnoses Cellulitis of right lower limb (10/23/18) Physical Therapy Treatment Note M2 PT-IP Current Condition Start: 10/24/18 12:34 Freq: NEEDED Status: Active Protocol: Document 10/24/18 11:20 AB (Rec: 10/24/18 12:49 AB [id number]) Physical Therapy Current Condition Current Condition Evaluation Date 10/24/18 Treatment Diagnosis RLE cellulitis; difficulty in walking Onset Date M3 PT-IP Subjective Start: 10/24/18 12:34 Freq: NEEDED Status: Active Protocol: Document 10/26/18 13:35 GGD (Rec: 10/26/18 15:06 GGD [email or web address]) Subjective Physical Therapy Visit Type Type Treatment Note Visit Start Time 13:15 Visit Stop Time 13:35 Total Visit Minutes 20 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 of 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 1 Physical Therapy Visit Comments Patient Comments Pt willing to work with [employer] M4 PT-IP Mobility and Gait Start: 10/24/18 12:34 Freq: NEEDED Status: Active Protocol: Document 10/26/18 13:35 GGD (Rec: 10/26/18 15:06 GGD [email or web address]) PT-Transfer Assessment Sit to and From Stand Sit to and from Stand Standby Assistance 1 Person Assistance Equipment Transfer Assistive Device Front Wheeled Walker Transfers Transfer Destination Chair Transfer Ability Level of Assist Standby Assistance Contact Guard Assistance Gait Assessment Gait Gait Assistance Required: Standby Assistance Distance (Feet) 60 Able to Maintain Weight Bearing Status Yes During Gait Assistive Devices Assistive Device Front Wheeled Walker Orthotic/Prosthetic Devices or Brace: No Gait Deviations General Gait Pattern Antalgic Decreased Stride Length Decreased Feet Clearance Step-to Gait Factors Limiting Gait Function Factors Limiting Gait Function Decreased Activity Tolerance Decreased Strength Pain Poor Balance Comments Gait Comments Pt need min cues for posture and keeping FWW close. M5 PT-IP Objective Assessments Start: 10/24/18 12:34 Freq: NEEDED Status: Active Protocol: Document 10/24/18 11:20 AB (Rec: 10/24/18 12:49 AB [id number]) Orientation Orientation/Cognition Level of Alertness Alert Orientation Name Language Function Ability No Deficits Noted Gross Range of Motion Lower Extremity ROM Assessment Within Functional Limits Strength Lower Extremity Strength Assessment Bilaterally Impaired Hip 4-/5 Knee 4-/5 Coordination Assessment Gross Coordination Gross Coordination WNL Sensation Assessment Sensation Gross Sensation WNL Muscle Tone Muscle Tone WNL Yes M6 PT-IP Treatment Start: 10/24/18 12:34 Freq: NEEDED Status: Active Protocol: Document 10/24/18 11:20 AB (Rec: 10/24/18 12:49 AB [id number]) Physical Therapy Treatment Education Education Provided Safety M7 PT-IP Assessment and Plan Start: 10/24/18 12:34 Freq: NEEDED Status: Active Protocol: Document 10/26/18 13:35 GGD (Rec: 10/26/18 15:06 GGD [email or web address]) PT Summary Assessment and Plan Summary Assessment Summary Pt able to progress gait distance. She fatigue quickly and limit activity tolerance. Frequency of Treatment Frequency Of Treatment Once a Day Treatment Plan Physical Therapy Treatment Plan Bed Mobility Training Transfer Training Gait Training Therapeutic Exercise Balance Retraining Discharge Planning Hot or Cold Pack Neuromuscular Re-ed Coordination Retraining Manual Therapy Recommendations To Nursing Amount of Assist Needed Standby Assistance Discharge Recommendations PT Discharge Recommendations Home with Assistance
--- NOTE | 2018-10-26 14:09 | CM.DPNOTE ---
Spoke w/Dr Vieira this morning who indicated that pt would need SNF upon DC for 2 weeks of IV abx. TC placed to son William P# [phone] to request a mtg w/he and pt. SNF recommendation was discussed and pt/family prefer [facility]. Placed referral to [facility] after this mtg, awaiting call back re: SNF acceptance for Sunday. Also spoke w/ William outside of pt's room. William works multimedia manager but often has flexibility to chk on pt at home if it is needed. His brother Jose A also lives there but has an unpredictable schedule as a manpower development manager. Dtr Nasima has off and spends that day assisting pt w/ errands, chores, etc. William feels pt manages pretty well at home alone but she is very sedentary. Pt is able to get up on her own and fix breakfast and some lunch but doesn't move much throughout the day. This HEALTH INFORMATION PROVIDER shared some of the staff's concerns that pt does not have proper hygiene habits at home. She is likely incontinent throughout the day and if she sits in urine and/or stool it makes her very susceptible to infection, son understood this. William often encourages pt to bathe regularly and wipe thoroughly. Pt is adamant about remaining in her home. William unsure whether pt would qualify for Medicaid because she still manages her own finances. Suggested HH upon DC from SNF and William agreed that a home health bath aid would be helpful. [facility] was involved until very recently. P: DC to [facility] Sunday pending acceptance vs other SNF. Following closely. HEATHER Maya
--- NOTE | 2018-10-26 14:25 | OT.IP.TRT ---
Current Diagnoses Cellulitis of right lower limb (10/23/18) Occupational Therapy Treatment Note M2 OT-IP Current Condition Start: 10/24/18 17:23 Freq: Status: Active Protocol: Document 10/25/18 09:40 [facility] (Rec: 10/25/18 10:02 [facility] [email or web address]) Occupational Therapy Current Condition Current Condition Evaluation Date 10/25/18 Treatment Diagnosis Acute cellulitis, weakness Diagnosis Onset Date 10/23/18 Weight Bearing Status Weight Bearing Status Weight Bear as Tolerated M3 OT- IP Subjective and Pain Start: 10/24/18 17:23 Freq: Status: Active Protocol: Document 10/26/18 14:23 [facility] (Rec: 10/26/18 14:25 [facility] [email or web address]) OT- Subjective Occupational Therapy Visit Type Type Patient Refusal Notes Pt states already showered with nursing earlier and does not want to get up at this time as she states, I do not want to overdo it as my feet are so swollen. I will be going to skilled rehab soon and will get therapy there as well.
[2018-10-26 15:23] VITALS: BP 147/69; PULSE 80; RESP 20; TEMP 36.8; O2SAT 98
[2018-10-26] MEDS: CEFTRIAXONE 2 GM/50 ML FROZ.PIGGY IV (22:37)
[2018-10-26 23:56] VITALS: BP 136/66; PULSE 84; RESP 18; TEMP 37.4; O2SAT 93
[2018-10-27 08:00] VITALS: BP 120/50; PULSE 88; RESP 16; TEMP 36.8; O2SAT 96
--- NOTE | 2018-10-27 08:23 | PM.PN.1 ---
Subjective Date Patient Seen: 10/27/18 Time Patient Seen: 08:24 Exam Vital Signs (past 8 hours): - 10/27/18 08:00 Temperature 98.2 F Pulse Rate 88 Respiratory Rate 16 Blood Pressure 120/50 L Pulse Oximetry 96 Oxygen Delivery Method Room Air Oxygen Flow Rate 0 Objective Labs Result Diagrams: 10/25/18 05:00 10/25/18 05:00 Assessment & Plan Assessment & Plan narrative: 1. Acute cellulitis right lower extremity, present on admission. -leg appearance improving daily -patient has previously had culture results including Staph, Pseudomonas and Proteus and is allergic to vancomycin, amoxicillin nafcillin and Pipracillin -she has been treated with both daptomycin and ceftriaxone but will rationalize, based on cultures to just the ceftriaxone at this time 2. Bacteremia with group B Streptococcus -plan 2 weeks of ceftriaxone 2 g Q 24 hours. She already has a PICC line. -she will need [facility] to [facility] the 2 weeks. 2. Chronic Venous hypertension bilateral lower extremities, present on admission. -patient with bilateral lower extremity edema that appears to be improving now -patient is on home Lasix 80 mg daily which is continued with potassium supplementation 20 mEq twice daily. -apply leg wraps bilateral lower extremities. 3. Venous stasis leg ulcers, active -the patient has healing ulcers distal right lower leg and posterior ankle left lower leg approximately 2 cm in diameter. -on admission the left leg wound appears dry,redness extends around the left ankle approximately 5 cm. -the patient has been receiving wound care from Dr. Reeves -wound care consulting. 4. Acute Kidney Injury (Mild renal insufficiency), present on admission, now resolved -creatinine 1.1 on admit improved to 0.8 following a.m. after IV hydration. 5. Morbid obesity, active -patient weight 137.5 kg with a height of 5 ft 5 in, BMI 50.44. -patient has severely impaired mobility minimal ambulation. -dietary consult -PT and OT to consult and treat. 6. Peroneal mucositis -treat with topical nystatin and attention to hygiene -Parmar catheter to be removed today
[2018-10-27] MEDS: ACETAMINOPHEN 325 MG TABLET 650 MG PO (09:10)
[2018-10-27] MEDS: FUROSEMIDE 40 MG TABLET 80 MG PO (09:11)
[2018-10-27] MEDS: SODIUM CHLORIDE 0.9% FLUSH 10 ML IV (09:12)
[2018-10-27] MEDS: ENOXAPARIN 40 MG/0.4 ML SYRINGE SUBCUT (09:12)
[2018-10-27] MEDS: POTASSIUM CHLORIDE 20 MEQ TAB PO (09:13)
[2018-10-27] MEDS: NYSTATIN POWDER 30 GM 1 APPLIC TOP (09:13)
--- NOTE | 2018-10-27 09:53 | PC.NURSE ---
Addendum entered by Adelita Linder R.N. 10/27/18 11:41: Pt agreeable to bed bath, fair removed. Updated on POC. Updated by Lelo in CM, d/c time to [facility] 1300. Updated Pt. Original Note: Am shift Pt is up to chair for meal, APAP given for pain to RLE. Dressing/nicole intact, dressing changes done wile Pt up in chair. POC updated with Pt, included preparing for d/c to [facility] or facility. Pt reluctant to have Fair removed when this addressed as part of POC. Education provided about length of use and potential complication from use if not medically needed. PICC to LUE remains in place. Lungs are dim, Spo2 95% RA. Using call light for needs. Enc. daily hygiene. Nystatin applied to skin below breasts and pannus.
--- NOTE | 2018-10-27 10:21 | P.DS_ITS ---
History of Present Illness Date Patient Seen: 10/27/18 Chief complaint: Left leg pain Narrative: Ms. Tiffanie Gomez is a 78-year-old female patient with history of morbid obesity stasis dermatitis with wounds bilateral lower extremities who presents to the hospital for increasing weakness pain and swelling of the lower extremities. Patient states at 11:00 a.m. last night she had difficulty getting in bed both f rom increased swelling of her lower extremities as well as weakness. Her last admission for cellulitis was 11/17/2017 after which she was followed by wound care until January 2018. The patient complains of increased swelling generalized weakness that has been progressive for the last several days. She Has redness of the right lower extremity with warmth and swelling to above the knee with crusted ulcerations. She denies complaints of pain and reports no complaints of fevers or chills. She has had no chest pain or palpitations, shortness of breath cough or wheezing though she states sometimes it is hard for her to take a deep breath. She has no abdominal pain and denies nausea vomiting, diarrhea or constipation. She denies dysuria or hematuria. The patient was brought into the hospital by EMS and upon arrival was found to be afebrile with temperature of 98.0?, heart rate of 90, blood pressure 147/65, respiratory rate 22 and oxygen saturation 97% on room air. A chest x-ray was ta marjorie which shows low lung volumes but no acute cardiopulmonary disease. On laboratory analysis she has an elevated white cell count of 23.2 with 94.1% neutrophils, hemoglobin 14.5 and hematocrit 43.5 platelets of 234. Her electrolytes are within normal limits and she has a BUN of 18 with a creatinine of 1.1 and EGFR of 48. Her nonfasting glucose is 126. Her lactate was found to be normal at 1.6 however she had an elevated procalcitonin of 5.04. A peripheral line was unable to be established therefore PICC line was called for and inserted in the ED. She received Rocephin 1 g IM after obtaining a single blood culture. The patient is admitted for cellulitis and IV antibiotics. Discharge Providers Date of admission: 10/23/18 22:13 Discharge Date: 10/27/18 Primary care physician: Arya Beyer MD Consults: 10/23/18 23:14 Consult to Occupational Therapy Evaluate & Treat Comment: Morbid obesity, venous stasis Physician Instructions: Evaluate and treat Consult to Physical Therapy Evaluate & Treat Comment: Morbid obesity, venous stasis Physician Instructions: Evaluate and Treat 10/23/18 23:15 Consult to Wound Care Routine Comment: Consulting Provider: [facility] 10/24/18 04:41 Consult to Product Introduction Manager Routine Comment: concern for home care, pt unkempt, skin breakdown 10/24/18 08:28 Consult to Occupational Therapy Evaluate & Treat Comment: Physician Instructions: Evaluate and treat Consult to Physical Therapy Evaluate & Treat Comment: Physician Instructions: Evaluate and Treat Discharge provider: Janet Vieira MD Summary Discharge Diagnosis: 1. Acute cellulitis right lower extremity, present on admission. 2. Bacteremia with group B Streptococcus 2. Chronic Venous hypertension bilateral lower extremities, present on admission. 3. Venous stasis leg ulcers, active 4. Acute Kidney Injury (Mild renal insufficiency), present on admission, now resolved 5. Morbid obesity, active 6. Peroneal mucositis Hospital Course: 1. Acute cellulitis right lower extremity, present on admission. -leg appearance improving daily -patient has previously had culture results including Staph, Pseudomonas and Proteus and is allergic to vancomycin, amoxicillin nafcillin and Pipracillin -she has been treated with both daptomycin and ceftriaxone but will rationalize, based on blood cultures to just the ceftriaxone at this time, completing on 11/06 2. Bacteremia with group B Streptococcus -plan 2 weeks of ceftriaxone 2 g Q 24 hours. PICC line. -she will go to [facility] to complete the 2 weeks. 2. Chronic Venous hypertension bilateral lower extremities, present on admission. -patient with bilateral lower extremity edema -patient is on home Lasix 80 mg daily which is continued with potassium supplementation 20 mEq twice daily. -apply wound dresings and leg wraps bilateral lower extremities. 3. Venous stasis leg ulcers, active -the patient has healing ulcers distal right lower leg and posterior ankle left lower leg approximately 2 cm in diameter. -on admission the left leg wound appears dry,redness extends around the left ankle approximately 5 cm. -the patient has been receiving wound care from Dr. Reeves -wound care consulting. 4. Acute Kidney Injury (Mild renal insufficiency), present on admission, now resolved -creatinine 1.1 on admit improved to 0.8 following a.m. after IV hydration. 5. Morbid obesity, active -patient weight 137.5 kg with a height of 5 ft 5 in, BMI 50.44. -patient has severely impaired mobility minimal ambulation. -dietary consult -PT and OT to consult and treat at SNF. 6. Peroneal mucositis -treat with topical nystatin and attention to hygiene -Parmar catheter to be removed today Status at Discharge Cognitive/behavioral status at discharge: oriented Functional status at discharge: uses cane/walker Overall status at discharge: patient is progressing back to baseline Time Spent with Patient Greater than 30 minutes Exam Vital Signs (past 8 hours): - 10/27/18 08:00 Temperature 98.2 F Pulse Rate 88 Respiratory Rate 16 Blood Pressure 120/50 L Pulse Oximetry 96 Oxygen Delivery Method Room Air Oxygen Flow Rate 0 Narrative Exam Narrative: She is alert and oriented x3, in no apparent distress Heart is regular rate and rhythm with frequent early beats Lungs are clear to auscultation bilaterally Extremities have no ankle edema. There is a mild degree of left lower leg warmth and pink discoloration that is improved. There are several open venous insufficiency type lesions on the right lower leg. There is some redness surrounding these areas. There is a lot of wrinkled skin on the feet. Objective Labs Result Diagrams: 10/25/18 05:00 10/25/18 05:00 Discharge Plan Discharge Plan Patient Disposition: SNF Transfer to: [facility] Under care of provider: Facility Services ExecutiveCellophane Bag Machine Operator: Facility vehicle Discharge comment: Continue current wound care orders including daily dressing changes to right leg venous insufficiency ulcers I certify the postop hospital fdc care is medically necessary on a continuing basis for any conditions for which he/ she received care during this hospitalization.: Yes The receiving facility has agreed to accept transfer and provide medical treatment.: Yes Discharge Med Rec/Prescriptions Prescriptions: New ceftriaxone 2 gram recon soln 2 gram IV Q24H 10 Days Qty: 1 RF: 0 Continued potassium chloride 20 MEQ tablet,ER particles/crystals 20 meq PO BID Qty: 0 RF: 0 nystatin [Nystop] 30 GM powder Topical BID Qty: 30 RF: 0 acetaminophen 650 MG tablet extended release 650 mg PO Q6HP PRN (Reason: Pain (Scale Score 1-3)) Qty: 0 RF: 0 furosemide [Lasix] 80 MG tablet 80 mg PO QDAY Qty: 30 RF: 11 alendronate 70 mg tablet 70 mg PO DAILY RF: 0 Discontinued gentamicin 0.1 % ointment Topical QDAY Qty: 1 RF: 0 Follow up/Referrals: Arya Beyer MD [Primary Care Provider] - Discharge Health Status Brief summary of current health status: Needs 10 more days of IV ceftriaxone for Strep bacteremia Provider Discharge Instructions Diet: Regular Liquid consistency: Normal/Thin Food texture: Regular [facility] Rehab type: Physical therapy Discharge Data Primary Care Provider: Arya Beyer Attending Provider: Dc Gurrola Admit Date/Time: 10/23/18 22:13
--- NOTE | 2018-10-27 14:20 | CM.DPNOTE ---
DC Note: [facility] accepts pt for admission today. Faxed DC ppk to include signed med list, DC summary, completed PASRR to [facility] efax per Silke's request. P: DC to [facility] via w/c van today approx 1530, RN pt/family aware and agreeable to this plan. HEATHER Maya
== END 2018-10-27 15:35 | DRG 300 ==
LOC: ED 21:12 → ICU 10-24 03:35
PROVIDERS: Internal Medicine; Admitting Provider Nurse Practitioner Adult Health; Emergency Provider Emergency Medicine; PCP Internal Medicine; Visit Provider Nurse Practitioner Adult Health
DX: I87.331 Chronic venous hypertension (idiopathic) with ulcer and inflammation of right lower extremity (principal); L03.115 Cellulitis of right lower limb; L97.811 Non-pressure chronic ulcer of other part of right lower leg limited to breakdown of skin; N17.9 Acute kidney failure, unspecified; R78.81 Bacteremia; Z68.43 Body mass index [BMI] 50.0-59.9, adult; I87.2 Venous insufficiency (chronic) (peripheral); B95.1 Streptococcus, group B, as the cause of diseases classified elsewhere; E66.01 Morbid (severe) obesity due to excess calories; I48.91 Unspecified atrial fibrillation
CPT/HCPCS: 36415; 36592; 71045; 80048; 81001; 83605; 84145; 84484; 85025; 87040; 87077; 87086; 87150; 87186; 87205; 87797; 93005; 96365; 97116; 97161; 97165; 99282; 99285; J0696; J0878; J1642; J1650; J1956

== ENCOUNTER → 2018-11-01 13:19 | Outpatient (CLI) | payer MEDICARE, OTHER, SELFPAY ==
[2018-10-24 00:30] VITALS: BMI 51.0
== END ==
PROVIDERS: PCP Internal Medicine; Visit Provider Family Medicine
DX: I87.313 Chronic venous hypertension (idiopathic) with ulcer of bilateral lower extremity (principal); L97.822 Non-pressure chronic ulcer of other part of left lower leg with fat layer exposed; L97.812 Non-pressure chronic ulcer of other part of right lower leg with fat layer exposed; I89.0 Lymphedema, not elsewhere classified; L03.115 Cellulitis of right lower limb
CPT/HCPCS: 11042

== ENCOUNTER → 2018-11-04 13:47 | Outpatient (CLI) | payer MEDICARE, OTHER, SELFPAY ==
[2018-10-24 00:30] VITALS: BMI 51.0
== END ==
PROVIDERS: PCP Internal Medicine; Visit Provider Podiatrist Primary Podiatric Medicine
DX: I87.2 Venous insufficiency (chronic) (peripheral) (principal); L97.811 Non-pressure chronic ulcer of other part of right lower leg limited to breakdown of skin
CPT/HCPCS: 29581; 99212

== ENCOUNTER → 2018-11-07 10:14 | Outpatient (CLI) | payer MEDICARE, OTHER, SELFPAY ==
[2018-10-24 00:30] VITALS: BMI 51.0
== END ==
PROVIDERS: PCP Internal Medicine; Visit Provider Family Medicine
DX: I87.2 Venous insufficiency (chronic) (peripheral) (principal); L97.821 Non-pressure chronic ulcer of other part of left lower leg limited to breakdown of skin; L97.811 Non-pressure chronic ulcer of other part of right lower leg limited to breakdown of skin; R60.0 Localized edema
CPT/HCPCS: 99212

== ENCOUNTER → 2019-01-02 10:00 | Outpatient (CLI) | payer MEDICARE, OTHER, SELFPAY ==
[2018-10-24 00:30] VITALS: BMI 51.0
== END ==
PROVIDERS: PCP Internal Medicine; Visit Provider Family Medicine
DX: L08.89 Other specified local infections of the skin and subcutaneous tissue (principal)
CPT/HCPCS: 11042; 36415; 80053; 83605; 84146; 85025; 85651; 86140; 87070; 87077; 87186; 87205; 99214; 99215

== ENCOUNTER → 2019-01-02 11:43 | Outpatient (CLI) | payer MEDICARE, OTHER, SELFPAY ==
[2019-01-02 10:27] VITALS: BMI 51.0
[2019-01-02 12:40] LABS: Add Manual Diff / Slide Review NO; Basophils Absolute Auto 100 /uL (0-100); Basophils Percent Auto 0.8 % (0-2); Eosinophils Absolute Auto 300 /uL (0-450); Eosinophils Percent Auto 2.6 % (2-4); Hematocrit 41.6 % (36-46); Hemoglobin 13.8 g/dL (12.0-16.0); Lactate (Lactic Acid) 1.3 mmol/L (0.7-2.1); Lymphocytes Absolute Auto 900 /uL (1100-4500); Lymphocytes Percent Auto 7.8 % (25-40); Mean Corpuscular HGB Conc 33.2 % (30-36); Mean Corpuscular Volume 84.4 fL (80-100); Monocytes Absolute Auto 1100 /uL (0-900); Monocytes Percent Auto 9.2 % (3-14); Neutrophils Absolute Auto 9400 /uL (1500-7000); Neutrophils Percent Auto 79.6 % (50-75); Platelet Count 326 X10^3/uL (150-400); Red Blood Cell Count 4.93 X10^6/uL (4.0-5.2); Red Cell Distribution Width 14.9 % (11.6-14.8); White Blood Cell Count 11.8 X10^3/uL (4.5-11.0)
[2019-01-02 12:59] LABS: Erythrocyte Sedimentation Rate 46 MM/HR (0-20)
[2019-01-02 13:10] LABS: Alanine Aminotransferase 17 IU/L (9-52); Albumin 3.3 g/dL (3.5-5.0); Albumin Globulin Ratio 0.9 (1.0-2.8); Alkaline Phosphatase 128 U/L (38-126); Aspartate Aminotransferase 21 IU/L (14-36); Bilirubin Total 0.5 mg/dL (0.2-1.3); Blood Urea Nitrogen 14 mg/dL (7-17); C-Reactive Protein Quant 4.5 mg/dL (<1.0); Calcium 8.9 mg/dL (8.4-10.2); Carbon Dioxide 27 mmol/L (22-32); Chloride 104 mmol/L (98-107); Estimated Glomerular Filt Rate > 60.0 mL/min (>60); Globulin 3.5 g/dL (1.7-4.1); Glucose 100 mg/dL (80-110); HEMOLYSIS < 15 (0-50); Potassium 4.4 mmol/L (3.4-5.1); Sodium 141 mmol/L (137-145); Total Protein 6.8 g/dL (6.3-8.2)
== END ==
PROVIDERS: PCP Internal Medicine; Visit Provider Family Medicine
DX: L08.89 Other specified local infections of the skin and subcutaneous tissue (principal)
CPT/HCPCS: 36415; 80053; 83605; 84146; 85025; 85651; 86140

== ENCOUNTER 2019-01-06 16:07 | Inpatient (IN) | payer MEDICARE, OTHER, SELFPAY ==
[2019-01-02 10:27] VITALS: BMI 51.0
[2019-01-06 16:18] VITALS: PULSE 118; RESP 22; TEMP 36.7; O2SAT 92
--- NOTE | 2019-01-06 17:00 | DI.RAD.S_ITS ---
PROCEDURE: XR ANKLE LT 2V INDICATIONS: ankle infection TECHNIQUE: 2 views of the ankle were acquired. COMPARISON: None. FINDINGS: Bones: No fractures or dislocations. Ankle mortise is normally aligned. No suspicious bony lesions. No gross bony erosion or cortical destruction is seen. Soft tissues: Soft tissue swelling around ankle joint particularly over medial malleolus and along posterior aspect of the Achilles tendon is seen. Possible ulceration involving posterior left heel is seen. IMPRESSION: Extensive ankle soft tissue swelling as above. Possible small ulceration in posterior left heel. No ankle fracture or dislocation. No gross radiographic evidence of osteomyelitis. Dictated by: Herbie Richard M.D. on 01/06/2019 at 17:59 Approved by: Herbie Richard M.D. on 01/06/2019 at 18:00
--- NOTE | 2019-01-06 17:11 | ED_ITS ---
HPI - Skin/Abscess/Foreign Bdy <ДМИТРИЙ Bush - Last Filed: 01/06/19 22:23> General Chief complaint: Skin/Abscess/Foreign Body Stated complaint: Right lower extremity wound Time Seen by Provider: 01/06/19 16:43 Source: patient and family Mode of arrival: Ambulatory Limitations: no limitations History of Present Illness HPI narrative: This is a 78-year-old female, nonsmoker and history of MRSA infection, who presents with son to ED with right ankle infection. Patient reports her symptoms start 4 days ago and she was referred to wound clinic by her primary care physician's office. She was seen at wound care clinic at [facility] 01/02/2019 had bilateral ankle and foot dressed and was referred to general surgeon. She visited Dr. Valdez at the office today and was referred to ED for an evaluation and possible surgical debridement. Patient reports chills and feeling freezing but no fever, denies nausea or vomiting, chest pain, breathing difficulty, or fainting. Patient reports her ankle pain is a 6/10 at this time. Patient has been taking cefuroxime b.i.d. dose but the infection is not getting better. Patient denies tingling or numbness or weakness to bilateral lower extremities. Patient does have several visits to ED for cellulitis in the past on bilateral lower extremities. Related Data Home Medications Medication Instructions Recorded Confirmed acetaminophen 650 mg PO Q6HP PRN #0 05/25/17 01/06/19 alendronate 70 mg PO QWEEK 10/24/18 01/06/19 Previous Rx's Medication Instructions Recorded furosemide [Lasix] 80 mg PO QDAY #30 tab 05/29/17 bacitracin 1 applictn TOP Q12H 10 Days #1 tube 01/09/19 cefuroxime axetil 500 mg PO BID #6 tab 01/09/19 docusate sodium [DOK] 100 mg PO BID PRN #60 cap 01/09/19 nystatin [Nystop] 1 applic TOPICAL BID #15 gram 01/09/19 polyethylene glycol 3350 17 gm PO DAILY #1 pkg 01/09/19 tramadol 50 mg PO QID PRN #20 tab 01/09/19 Allergies Allergy/AdvReac Type Severity Reaction Status Date / Time amoxicillin [From Augmentin] Allergy Severe rash, Verified 01/06/19 16:11 flushing, nausea,vomiting clavulanic acid Allergy Severe rash, Verified 01/06/19 16:11 [From Augmentin] flushing, nausea,vomiting vancomycin [VANCOMYCIN] Allergy Severe URSULA Verified 01/06/19 16:11 SYNDROME, CHILLS/SHAKING, TACHYCARDIA, HYPERTENSION codeine Allergy Intermediate hives, Verified 01/06/19 16:11 vomiting fluconazole Allergy Intermediate hives Verified 01/06/19 16:11 nafcillin Allergy Intermediate rash Verified 01/06/19 16:11 oxycodone Allergy Intermediate rash, Verified 01/06/19 16:11 MENTAL CHANGES piperacillin Allergy Intermediate rash Verified 01/06/19 16:11 fish oil Allergy Unknown Verified 01/06/19 16:11 morphine AdvReac Unknown PASS OUT, Verified 01/06/19 16:11 RACING HEART DIALUDID AdvReac Unknown MENTAL Uncoded 01/06/19 16:11 STATUS CHANGES Review of Systems <ДМИТРИЙ Bush - Last Filed: 01/06/19 22:23> Review of Systems Narrative: General: Reports chills. Denies fever, fatigue, malaise, sweats. HEENT: Denies sinus pain, ear pain, sore throat, difficulty swallowing, dizziness. Respiratory: Denies dyspnea, cough, wheezing, hemoptysis, sputum. Cardiovascular: Denies chest pain, palpitations, orthopnea, edema. Gastrointestinal: Denies nausea, vomiting, abdominal pain, diarrhea, constipation, melena. : Denies dysuria, frequency, incontinence, hematuria, urinary retention. Musculoskeletal: Reports right ankle pain with infection. Denies weakness. Skin: Ankle infection with orders drainage in right foot. Denies rash, skin lesions, or other. Neurologic: Denies weakness, headache, numbness, change in speech, confusion, seizures, incoordination. Psychiatric: No concerning psychosocial issues. 12-point review of systems is negative except for those stated above. PFS <ДМИТРИЙ Bush - Last Filed: 01/06/19 22:23> Medical History (Updated 01/06/19 @ 20:32 by ДМИТРИЙ Ritter) Cellulitis (Inactive) Chronic venous hypertension (idiopathic) with ulcer and inflammation of left lower extremity (Inactive) Chronic venous hypertension (idiopathic) with ulcer and inflammation of right lower extremity (Inactive) Lymphedema of both lower extremities (Inactive) Morbid obesity (Acute) Stasis dermatitis (Acute) Wound of lower extremity (Acute) Surgical History H/O umbilical hernia repair (Acute) Family History Father Cancer Mother Cancer Social History household members: children Smoking Status: Never smoker alcohol intake: never Family History Father Cancer Mother Cancer Social History household members: children Smoking Status: Never smoker alcohol intake: never Exam <ДМИТРИЙ Bush - Last Filed: 01/06/19 22:23> Narrative Exam Narrative: GEN: Alert, oriented x 3, well appearing and nourished, and in mild acute distress. Head: Normal cephalic, atraumatic. No scalp or temporal tenderness, palpable mass or rash. EYES: Pupils are equal, round, and reactive to light and accommodation. Ext raocular muscles are intact bilaterally. There is no subconjunctival hemorrhage, exudate and sclera non-icteric. ENT: Bilateral auditory canals and tympanic membranes clear. Hearing grossly intact. Nose without bleeding, purulent discharge or deviation. Facial sinuses nontender to palpate. Mucous membrane moist, no mucosal lesion. Throat without erythema, tonsillar hypertrophy or exudate. Uvula in midline, airway patent. Neck: Trachea in midline. No JVD, non-tender without lymphadenopathy. No masses or thyroid megaly. Supple, non-tender and no meningeal signs. CARDIAC: Normal regular rate and rhythm without murmurs, gallops, or rubs. No chest wall tenderness. No peripheral edema, cyanosis or pallor. Capillary refill is less than 2 seconds. RESPIRATORY: Lungs are cleat to auscultate bilaterally. No cough, wheezes, rales, or rhonchi. No stridor, respiratory distress, increase work of breathing, or accessary muscle used. ABD: Abdomen soft, nontender and non-distended. No guarding or rebound tenderness to palpate. Bowel sounds are normal in all 4 quadrants. There is no palpable masses or organomegaly. EXT: Right ankle discomfort with light palpation. Full painless ROM of all extremities with no loss of sensation, strength. Bilateral lower extremity swel ling with thickened skin. SKIN: Abdominal pads were soaked with brownish odorous drainage. Gangrenous like large excoriated lesions to right lateral ankle and anterior/volar aspect of right foot. Faint pulse to right dorsal pedal. Cap refill brisk with intact sensation. No significant warmth to touch or redness on bilateral lower extremity. No erythema, lesions or rash over other visible areas. BACK: Nontender without deformity or crepitance. No flank tenderness. NEUROLOGICAL: Alert and oriented to place, time and person. Sensation and motor function intact bilaterally. No facial droops, dysphasia. PSYCHIATRIC: Good judgement and reason, without hallucinations, abnormal affect or abnormal behaviors during the examination. Initial Vital Signs Initial Vital Signs: Vital Signs Temperature 98.1 F 01/06/19 16:18 Pulse Rate 118 H 01/06/19 16:18 Respiratory Rate 22 01/06/19 16:18 Pulse Oximetry 92 01/06/19 16:18 <Deepak Hollis DO - Last Filed: 01/09/19 20:22> Initial Vital Signs Initial Vital Signs: Vital Signs Temperature 98.1 F 01/06/19 16:18 Pulse Rate 118 H 01/06/19 16:18 Respiratory Rate 22 01/06/19 16:18 Pulse Oximetry 92 01/06/19 16:18 Scores <ДМИТРИЙ Bush - Last Filed: 01/06/19 22:23> GCS Obed coma scale eye opening: Spontaneous [place] coma scale verbal response: Orientated [place] coma scale motor response: Obey commands Obed coma scale total score: 15 Course <ДМИТРИЙ Bush - Last Filed: 01/06/19 22:23> Orders Ordered: Discontinued Medications Acetaminophen (Tylenol) 650 mg PO Q6HR PRN PRN Reason: As Needed for Fever/Mild Pain Last Admin: 01/06/19 21:47 Dose: 650 mg Documented by: YOJANA Acetaminophen (Tylenol) 975 mg PO Q8H MIKEY Last Admin: 01/09/19 13:20 Dose: 650 mg Documented by: Admin: 01/09/19 05:59 Dose: 975 mg Documented by: Admin: 01/08/19 22:27 Dose: 975 mg Documented by: Admin: 01/08/19 14:41 Dose: 975 mg Documented by: Admin: 01/08/19 06:42 Dose: Not Given Documented by: Admin: 01/08/19 00:00 Dose: 975 mg Documented by: Admin: 01/07/19 16:06 Dose: 975 mg Documented by: Admin: 01/07/19 14:52 Dose: Not Given Documented by: Admin: 01/07/19 07:07 Dose: 975 mg Documented by: Admin: 01/07/19 00:10 Dose: 975 mg Documented by: JAMIE Acetaminophen (Tylenol) 325 mg PO NOW PRN PRN Reason: Pain, Mild (1-3) Hydrocodone Bitart/Acetaminophen ([place] 5/325) 1 tab PO Q6HR PRN PRN Reason: Pain, Moderate (4-6) Last Admin: 01/08/19 20:52 Dose: 1 tab Documented by: MARK Al Hydrox/Mg Hydrox/Simethicone (Maalox Plus) 30 ml PO Q6HR PRN PRN Reason: Dyspepsia Albuterol (Ventolin) 2.5 mg INH NOW PRN PRN Reason: Coughing, Wheezing, Dyspnea Bisacodyl (Dulcolax) 10 mg ID DAILY PRN PRN Reason: Constipation Calcium Carbonate (Tums) 1,000 mg PO Q4HR PRN PRN Reason: Dyspepsia Docusate Sodium (Colace) 100 mg PO BID PRN PRN Reason: Constipation Docusate Sodium (Colace) 100 mg PO BID PENDING SALE TO [facility] Last Admin: 01/09/19 10:02 Dose: 100 mg Documented by: RELL Enoxaparin Sodium (Lovenox) 40 mg SUBCUT DAILY PENDING SALE TO [facility] Enoxaparin Sodium (Lovenox) 40 mg SUBCUT BID PENDING SALE TO [facility] Last Admin: 01/09/19 10:03 Dose: 40 mg Documented by: Admin: 01/08/19 20:43 Dose: 40 mg Documented by: MARK Fentanyl (Sublimaze) 50 mcg IV Q5MIN PRN PRN Reason: Pain, Moderate (4-6) Heparin Sodium (Porcine) (Heparin (Cl/Picc/Mid-Line)) 50 unit IV PRN PRN PRN Reason: Flush Last Admin: 01/09/19 14:15 Dose: 50 unit Documented by: Admin: 01/08/19 05:04 Dose: 50 unit Documented by: Admin: 01/07/19 04:40 Dose: 50 unit Documented by: JAMIE Heparin Sodium (Porcine) (Heparin (Cl/Picc/Mid-Line)) 50 unit IV BID MIKEY Last Admin: 01/09/19 09:58 Dose: Not Given Documented by: Admin: 01/08/19 20:44 Dose: 50 unit Documented by: Admin: 01/08/19 08:19 Dose: Not Given Documented by: Admin: 01/07/19 22:39 Dose: Not Given Documented by: Admin: 01/07/19 09:09 Dose: Not Given Documented by: ESVIN Sodium Chloride (Normal Saline 0.9%) 500 mls @ 1,000 mls/hr IV BOLUS ONE Stop: 01/06/19 17:31 Last Infusion: 01/06/19 23:50 Dose: 0 mls/hr Documented by: Admin: 01/06/19 21:39 Dose: 1,000 mls/hr Documented by: YOJANA Meropenem 1 gm/ Sodium (Chloride) 100 mls @ 200 mls/hr IV NOW ONE Stop: 01/06/19 17:31 Last Infusion: 01/06/19 23:50 Dose: 0 mls/hr Documented by: Admin: 01/06/19 21:40 Dose: 200 mls/hr Documented by: YOJANA Linezolid (Zyvox) 600 mg in 300 mls @ 600 mls/hr IV Q12H MIKEY Last Infusion: 01/06/19 23:49 Dose: 0 mls/hr Documented by: Admin: 01/06/19 21:40 Dose: 600 mls/hr Documented by: YOJANA Sodium Chloride (Normal Saline 0.9%) 1,000 mls @ 100 mls/hr IV CONT MIKEY Last Admin: 01/09/19 08:33 Dose: 100 mls/hr Documented by: Infusion: 01/09/19 08:22 Dose: 100 mls/hr Documented by: Admin: 01/08/19 22:22 Dose: 100 mls/hr Documented by: Infusion: 01/08/19 21:15 Dose: 100 mls/hr Documented by: Admin: 01/08/19 11:15 Dose: 100 mls/hr Documented by: Infusion: 01/08/19 11:15 Dose: 100 mls/hr Documented by: Admin: 01/08/19 01:25 Dose: 100 mls/hr Documented by: Infusion: 01/07/19 17:34 Dose: 0 mls/hr Documented by: Admin: 01/07/19 12:39 Dose: 100 mls/hr Documented by: Infusion: 01/07/19 12:23 Dose: 100 mls/hr Documented by: Admin: 01/07/19 02:23 Dose: 100 mls/hr Documented by: Infusion: 01/07/19 02:23 Dose: 100 mls/hr Documented by: Admin: 01/06/19 21:38 Dose: 100 mls/hr Documented by: YOJANA Linezolid (Zyvox) 600 mg in 300 mls @ 600 mls/hr IV Q12H MIKEY Meropenem (Merrem) 1 gm in 50 mls @ 100 mls/hr IV Q8H PENDING SALE TO [facility] Last Admin: 01/07/19 07:49 Dose: Not Given Documented by: ESVIN Meropenem (Merrem) 1 gm in 50 mls @ 100 mls/hr IV Q8H PENDING SALE TO [facility] Last Admin: 01/09/19 13:19 Dose: 100 mls/hr Documented by: Infusion: 01/09/19 07:27 Dose: 0 mls/hr Documented by: Admin: 01/09/19 04:52 Dose: 100 mls/hr Documented by: Infusion: 01/08/19 21:13 Dose: 100 mls/hr Documented by: Admin: 01/08/19 20:43 Dose: 100 mls/hr Documented by: Infusion: 01/08/19 14:31 Dose: 0 mls/hr Documented by: Admin: 01/08/19 13:11 Dose: 100 mls/hr Documented by: Infusion: 01/08/19 06:42 Dose: 0 mls/hr Documented by: Admin: 01/08/19 05:45 Dose: 100 mls/hr Documented by: Infusion: 01/07/19 21:30 Dose: 0 mls/hr Documented by: Admin: 01/07/19 20:03 Dose: 100 mls/hr Documented by: Infusion: 01/07/19 15:17 Dose: 0 mls/hr Documented by: Admin: 01/07/19 12:39 Dose: 100 mls/hr Documented by: Infusion: 01/07/19 07:51 Dose: 0 mls/hr Documented by: Admin: 01/07/19 05:30 Dose: 100 mls/hr Documented by: JAMIE Linezolid (Zyvox) 600 mg in 300 mls @ 600 mls/hr IV Q12H PENDING SALE TO [facility] Last Infusion: 01/08/19 12:31 Dose: 0 mls/hr Documented by: Admin: 01/08/19 10:19 Dose: 600 mls/hr Documented by: Infusion: 01/07/19 22:00 Dose: 0 mls/hr Documented by: Admin: 01/07/19 21:00 Dose: 600 mls/hr Documented by: Infusion: 01/07/19 10:51 Dose: 0 mls/hr Documented by: Admin: 01/07/19 09:44 Dose: 600 mls/hr Documented by: ESVIN Ketorolac Tromethamine (Toradol) 30 mg IV Q8HR PRN PRN Reason: Pain, Moderate (4-6) Stop: 01/11/19 22:32 Last Admin: 01/08/19 14:41 Dose: 30 mg Documented by: Admin: 01/07/19 16:07 Dose: 30 mg Documented by: Admin: 01/07/19 00:09 Dose: 30 mg Documented by: JAMIE Dakins 0.25 % 0.25 % TOP BID PENDING SALE TO [facility] Last Admin: 01/08/19 20:54 Dose: Not Given Documented by: Admin: 01/08/19 08:19 Dose: Not Given Documented by: Admin: 01/07/19 20:03 Dose: Not Given Documented by: Admin: 01/07/19 09:04 Dose: Not Given Documented by: ESVIN Nystatin (Nystop) 1 applic TOP BID PENDING SALE TO [facility] Last Admin: 01/08/19 21:52 Dose: Not Given Documented by: Admin: 01/08/19 10:20 Dose: 1 applic Documented by: Admin: 01/07/19 20:04 Dose: 1 applic Documented by: Admin: 01/07/19 09:43 Dose: 1 applic Documented by: Admin: 01/07/19 01:48 Dose: Not Given Documented by: JAMIE Ondansetron HCl (Zofran) 4 mg IV Q8HR PRN PRN Reason: Nausea And Vomiting Ondansetron HCl (Zofran) 4 mg IV NOW PRN PRN Reason: Nausea And Vomiting Polyethylene Glycol (Miralax) 17 gm PO DAILY PENDING SALE TO [facility] Last Admin: 01/09/19 10:03 Dose: 17 gm Documented by: RELL Tramadol HCl (Ultram) 50 mg PO QID PRN PRN Reason: Pain, Moderate (4-6) Last Admin: 01/09/19 10:02 Dose: 50 mg Documented by: Admin: 01/08/19 23:11 Dose: 50 mg Documented by: MARK Vital Signs Vital signs: Vital Signs - 8 hr 01/06/19 16:18 01/06/19 17:45 01/06/19 19:10 Temperature 98.1 F Pulse Rate 118 H 95 H 64 Respiratory Rate 22 24 25 H Blood Pressure [Right Wrist] 136/50 L 136/94 H Pulse Oximetry 92 100 98 <Deepak Hollis DO - Last Filed: 01/09/19 20:22> Orders Ordered: Discontinued Medications Acetaminophen (Tylenol) 650 mg PO Q6HR PRN PRN Reason: As Needed for Fever/Mild Pain Last Admin: 01/06/19 21:47 Dose: 650 mg Documented by: YOJANA Acetaminophen (Tylenol) 975 mg PO Q8H PENDING SALE TO [facility] Last Admin: 01/09/19 13:20 Dose: 650 mg Documented by: Admin: 01/09/19 05:59 Dose: 975 mg Documented by: Admin: 01/08/19 22:27 Dose: 975 mg Documented by: Admin: 01/08/19 14:41 Dose: 975 mg Documented by: Admin: 01/08/19 06:42 Dose: Not Given Documented by: Admin: 01/08/19 00:00 Dose: 975 mg Documented by: Admin: 01/07/19 16:06 Dose: 975 mg Documented by: Admin: 01/07/19 14:52 Dose: Not Given Documented by: Admin: 01/07/19 07:07 Dose: 975 mg Documented by: Admin: 01/07/19 00:10 Dose: 975 mg Documented by: JAMIE Acetaminophen (Tylenol) 325 mg PO NOW PRN PRN Reason: Pain, Mild (1-3) Hydrocodone Bitart/Acetaminophen ([place] 5/325) 1 tab PO Q6HR PRN PRN Reason: Pain, Moderate (4-6) Last Admin: 01/08/19 20:52 Dose: 1 tab Documented by: MARK Al Hydrox/Mg Hydrox/Simethicone (Maalox Plus) 30 ml PO Q6HR PRN PRN Reason: Dyspepsia Albuterol (Ventolin) 2.5 mg INH NOW PRN PRN Reason: Coughing, Wheezing, Dyspnea Bisacodyl (Dulcolax) 10 mg ID DAILY PRN PRN Reason: Constipation Calcium Carbonate (Tums) 1,000 mg PO Q4HR PRN PRN Reason: Dyspepsia Docusate Sodium (Colace) 100 mg PO BID PRN PRN Reason: Constipation Docusate Sodium (Colace) 100 mg PO BID PENDING SALE TO [facility] Last Admin: 01/09/19 10:02 Dose: 100 mg Documented by: RELL Enoxaparin Sodium (Lovenox) 40 mg SUBCUT DAILY PENDING SALE TO [facility] Enoxaparin Sodium (Lovenox) 40 mg SUBCUT BID PENDING SALE TO [facility] Last Admin: 01/09/19 10:03 Dose: 40 mg Documented by: Admin: 01/08/19 20:43 Dose: 40 mg Documented by: MARK Fentanyl (Sublimaze) 50 mcg IV Q5MIN PRN PRN Reason: Pain, Moderate (4-6) Heparin Sodium (Porcine) (Heparin (Cl/Picc/Mid-Line)) 50 unit IV PRN PRN PRN Reason: Flush Last Admin: 01/09/19 14:15 Dose: 50 unit Documented by: Admin: 01/08/19 05:04 Dose: 50 unit Documented by: Admin: 01/07/19 04:40 Dose: 50 unit Documented by: JAMIE Heparin Sodium (Porcine) (Heparin (Cl/Picc/Mid-Line)) 50 unit IV BID MIKEY Last Admin: 01/09/19 09:58 Dose: Not Given Documented by: Admin: 01/08/19 20:44 Dose: 50 unit Documented by: Admin: 01/08/19 08:19 Dose: Not Given Documented by: Admin: 01/07/19 22:39 Dose: Not Given Documented by: Admin: 01/07/19 09:09 Dose: Not Given Documented by: ESVIN Sodium Chloride (Normal Saline 0.9%) 500 mls @ 1,000 mls/hr IV BOLUS ONE Stop: 01/06/19 17:31 Last Infusion: 01/06/19 23:50 Dose: 0 mls/hr Documented by: Admin: 01/06/19 21:39 Dose: 1,000 mls/hr Documented by: YOJANA Meropenem 1 gm/ Sodium (Chloride) 100 mls @ 200 mls/hr IV NOW ONE Stop: 01/06/19 17:31 Last Infusion: 01/06/19 23:50 Dose: 0 mls/hr Documented by: Admin: 01/06/19 21:40 Dose: 200 mls/hr Documented by: YOJANA Linezolid (Zyvox) 600 mg in 300 mls @ 600 mls/hr IV Q12H MIKEY Last Infusion: 01/06/19 23:49 Dose: 0 mls/hr Documented by: Admin: 01/06/19 21:40 Dose: 600 mls/hr Documented by: YOJANA Sodium Chloride (Normal Saline 0.9%) 1,000 mls @ 100 mls/hr IV CONT MIKEY Last Admin: 01/09/19 08:33 Dose: 100 mls/hr Documented by: Infusion: 01/09/19 08:22 Dose: 100 mls/hr Documented by: Admin: 01/08/19 22:22 Dose: 100 mls/hr Documented by: Infusion: 01/08/19 21:15 Dose: 100 mls/hr Documented by: Admin: 01/08/19 11:15 Dose: 100 mls/hr Documented by: Infusion: 01/08/19 11:15 Dose: 100 mls/hr Documented by: Admin: 01/08/19 01:25 Dose: 100 mls/hr Documented by: Infusion: 01/07/19 17:34 Dose: 0 mls/hr Documented by: Admin: 01/07/19 12:39 Dose: 100 mls/hr Documented by: Infusion: 01/07/19 12:23 Dose: 100 mls/hr Documented by: Admin: 01/07/19 02:23 Dose: 100 mls/hr Documented by: Infusion: 01/07/19 02:23 Dose: 100 mls/hr Documented by: Admin: 01/06/19 21:38 Dose: 100 mls/hr Documented by: YOJANA Linezolid (Zyvox) 600 mg in 300 mls @ 600 mls/hr IV Q12H MIKEY Meropenem (Merrem) 1 gm in 50 mls @ 100 mls/hr IV Q8H PENDING SALE TO [facility] Last Admin: 01/07/19 07:49 Dose: Not Given Documented by: ESVIN Meropenem (Merrem) 1 gm in 50 mls @ 100 mls/hr IV Q8H PENDING SALE TO [facility] Last Admin: 01/09/19 13:19 Dose: 100 mls/hr Documented by: Infusion: 01/09/19 07:27 Dose: 0 mls/hr Documented by: Admin: 01/09/19 04:52 Dose: 100 mls/hr Documented by: Infusion: 01/08/19 21:13 Dose: 100 mls/hr Documented by: Admin: 01/08/19 20:43 Dose: 100 mls/hr Documented by: Infusion: 01/08/19 14:31 Dose: 0 mls/hr Documented by: Admin: 01/08/19 13:11 Dose: 100 mls/hr Documented by: Infusion: 01/08/19 06:42 Dose: 0 mls/hr Documented by: Admin: 01/08/19 05:45 Dose: 100 mls/hr Documented by: Infusion: 01/07/19 21:30 Dose: 0 mls/hr Documented by: Admin: 01/07/19 20:03 Dose: 100 mls/hr Documented by: Infusion: 01/07/19 15:17 Dose: 0 mls/hr Documented by: Admin: 01/07/19 12:39 Dose: 100 mls/hr Documented by: Infusion: 01/07/19 07:51 Dose: 0 mls/hr Documented by: Admin: 01/07/19 05:30 Dose: 100 mls/hr Documented by: JAMIE Linezolid (Zyvox) 600 mg in 300 mls @ 600 mls/hr IV Q12H PENDING SALE TO [facility] Last Infusion: 01/08/19 12:31 Dose: 0 mls/hr Documented by: Admin: 01/08/19 10:19 Dose: 600 mls/hr Documented by: Infusion: 01/07/19 22:00 Dose: 0 mls/hr Documented by: Admin: 01/07/19 21:00 Dose: 600 mls/hr Documented by: Infusion: 01/07/19 10:51 Dose: 0 mls/hr Documented by: Admin: 01/07/19 09:44 Dose: 600 mls/hr Documented by: ESVIN Ketorolac Tromethamine (Toradol) 30 mg IV Q8HR PRN PRN Reason: Pain, Moderate (4-6) Stop: 01/11/19 22:32 Last Admin: 01/08/19 14:41 Dose: 30 mg Documented by: Admin: 01/07/19 16:07 Dose: 30 mg Documented by: Admin: 01/07/19 00:09 Dose: 30 mg Documented by: JAMIE Dakins 0.25 % 0.25 % TOP BID PENDING SALE TO [facility] Last Admin: 01/08/19 20:54 Dose: Not Given Documented by: Admin: 01/08/19 08:19 Dose: Not Given Documented by: Admin: 01/07/19 20:03 Dose: Not Given Documented by: Admin: 01/07/19 09:04 Dose: Not Given Documented by: ESVIN Nystatin (Nystop) 1 applic TOP BID PENDING SALE TO [facility] Last Admin: 01/08/19 21:52 Dose: Not Given Documented by: Admin: 01/08/19 10:20 Dose: 1 applic Documented by: Admin: 01/07/19 20:04 Dose: 1 applic Documented by: Admin: 01/07/19 09:43 Dose: 1 applic Documented by: Admin: 01/07/19 01:48 Dose: Not Given Documented by: JAMIE Ondansetron HCl (Zofran) 4 mg IV Q8HR PRN PRN Reason: Nausea And Vomiting Ondansetron HCl (Zofran) 4 mg IV NOW PRN PRN Reason: Nausea And Vomiting Polyethylene Glycol (Miralax) 17 gm PO DAILY PENDING SALE TO [facility] Last Admin: 01/09/19 10:03 Dose: 17 gm Documented by: RELL Tramadol HCl (Ultram) 50 mg PO QID PRN PRN Reason: Pain, Moderate (4-6) Last Admin: 01/09/19 10:02 Dose: 50 mg Documented by: Admin: 01/08/19 23:11 Dose: 50 mg Documented by: MARK Vital Signs Vital signs: Vital Signs - 8 hr 01/06/19 16:18 01/06/19 17:45 01/06/19 19:10 Temperature 98.1 F Pulse Rate 118 H 95 H 64 Respiratory Rate 22 24 25 H Blood Pressure [Right Wrist] 136/50 L 136/94 H Pulse Oximetry 92 100 98 MDM - Skin/Abscess/Foreign Bdy <ДМИТРИЙ Bush - Last Filed: 01/06/19 22:23> Differential Diagnosis Differential diagnosis: Likely cellulitis and other (osteomylitis, sepsis) Medical Records Attestation: I reviewed the patient's medical records. Lab Data Attestation: I reviewed the patient's lab results. Result diagrams: 01/09/19 07:22 01/09/19 07:22 Labs: Lab Results 01/06/19 01/06/19 01/06/19 Range/Units 18:15 18:15 18:15 WBC 10.4 (4.5-11.0) X10^3/uL RBC 5.02 (4.0-5.2) X10^6/uL Hgb 13.9 (12.0-16.0) g/dL Hct 42.6 (36-46) % MCV 84.9 (80-100) fL MCH 27.8 (26-34) PG MCHC 32.7 (30-36) % RDW 14.8 (11.6-14.8) % Plt Count 333 (150-400) X10^3/uL Neut % (Auto) 79.9 H (50-75) % Lymph % (Auto) 6.8 L (25-40) % [place] % (Auto) 8.9 (3-14) % Eos % (Auto) 3.8 (2-4) % Baso % (Auto) 0.6 (0-2) % Neut # (Auto) 8300 H (2796-4769) /uL Lymph # (Auto) 700 L (1744-0977) /uL [place] # (Auto) 900 (0-900) /uL Eos # (Auto) 400 (0-450) /uL Baso # (Auto) 100 (0-100) /uL ESR (0-20) MM/HR Sodium 140 (137-145) mmol/L Potassium 4.1 (3.4-5.1) mmol/L Chloride 105 (98-107) mmol/L Carbon Dioxide 30 (22-32) mmol/L BUN 9 (7-17) mg/dL Creatinine 0.70 (0.52-1.04) mg/dL Estimated GFR > 60.0 (>60) mL/min BUN/Creatinine Ratio 12.9 (6-22) Glucose 110 (80-110) mg/dL Lactate (0.7-2.1) mmol/L Calcium 8.8 (8.4-10.2) mg/dL Total Bilirubin 0.5 (0.2-1.3) mg/dL AST 24 (14-36) IU/L ALT 6 L (9-52) IU/L Alkaline Phosphatase 144 H (38-126) U/L C-Reactive Protein (<1.0) mg/dL B-Natriuretic Peptide (<100) Total Protein 7.5 (6.3-8.2) g/dL Albumin 3.4 L (3.5-5.0) g/dL Globulin 4.1 (1.7-4.1) g/dL Albumin/Globulin Ratio 0.8 L (1.0-2.8) Procalcitonin 0.05 (<0.5) ng/mL 01/06/19 01/06/19 01/06/19 Range/Units 18:15 18:15 18:15 WBC (4.5-11.0) X10^3/uL RBC (4.0-5.2) X10^6/uL Hgb (12.0-16.0) g/dL Hct (36-46) % MCV (80-100) fL MCH (26-34) PG MCHC (30-36) % RDW (11.6-14.8) % Plt Count (150-400) X10^3/uL Neut % (Auto) (50-75) % Lymph % (Auto) (25-40) % [place] % (Auto) (3-14) % Eos % (Auto) (2-4) % Baso % (Auto) (0-2) % Neut # (Auto) (2235-0186) /uL Lymph # (Auto) (2771-7110) /uL [place] # (Auto) (0-900) /uL Eos # (Auto) (0-450) /uL Baso # (Auto) (0-100) /uL ESR 13 (0-20) MM/HR Sodium (137-145) mmol/L Potassium (3.4-5.1) mmol/L Chloride (98-107) mmol/L Carbon Dioxide (22-32) mmol/L BUN (7-17) mg/dL Creatinine (0.52-1.04) mg/dL Estimated GFR (>60) mL/min BUN/Creatinine Ratio (6-22) Glucose (80-110) mg/dL Lactate 0.9 (0.7-2.1) mmol/L Calcium (8.4-10.2) mg/dL Total Bilirubin (0.2-1.3) mg/dL AST (14-36) IU/L ALT (9-52) IU/L Alkaline Phosphatase (38-126) U/L C-Reactive Protein 4.6 H (<1.0) mg/dL B-Natriuretic Peptide (<100) Total Protein (6.3-8.2) g/dL Albumin (3.5-5.0) g/dL Globulin (1.7-4.1) g/dL Albumin/Globulin Ratio (1.0-2.8) Procalcitonin (<0.5) ng/mL 01/06/19 Range/Units 18:15 WBC (4.5-11.0) X10^3/uL RBC (4.0-5.2) X10^6/uL Hgb (12.0-16.0) g/dL Hct (36-46) % MCV (80-100) fL MCH (26-34) PG MCHC (30-36) % RDW (11.6-14.8) % Plt Count (150-400) X10^3/uL Neut % (Auto) (50-75) % Lymph % (Auto) (25-40) % [place] % (Auto) (3-14) % Eos % (Auto) (2-4) % Baso % (Auto) (0-2) % Neut # (Auto) (3236-3706) /uL Lymph # (Auto) (1210-4475) /uL [place] # (Auto) (0-900) /uL Eos # (Auto) (0-450) /uL Baso # (Auto) (0-100) /uL ESR (0-20) MM/HR Sodium (137-145) mmol/L Potassium (3.4-5.1) mmol/L Chloride (98-107) mmol/L Carbon Dioxide (22-32) mmol/L BUN (7-17) mg/dL Creatinine (0.52-1.04) mg/dL Estimated GFR (>60) mL/min BUN/Creatinine Ratio (6-22) Glucose (80-110) mg/dL Lactate (0.7-2.1) mmol/L Calcium (8.4-10.2) mg/dL Total Bilirubin (0.2-1.3) mg/dL AST (14-36) IU/L ALT (9-52) IU/L Alkaline Phosphatase (38-126) U/L C-Reactive Protein (<1.0) mg/dL B-Natriuretic Peptide < 100 (<100) Total Protein (6.3-8.2) g/dL Albumin (3.5-5.0) g/dL Globulin (1.7-4.1) g/dL Albumin/Globulin Ratio (1.0-2.8) Procalcitonin (<0.5) ng/mL Imaging Data XR-Ankle: Radiologist's impression: [address] [address] XRay Report Signed Patient: Tiffanie Gomez CMR#: [id number] : [id number] Age/Sex: 78 / FDate of Service: 01/06/19 Loc: ED Accession Number: [id number] Procedure: XR ankle LT 2V Ordering Provider: Mango Szymanski PROCEDURE: XR ANKLE LT 2V INDICATIONS: ankle infection TECHNIQUE: 2 views of the ankle were acquired. COMPARISON: None. FINDINGS: Bones: No fractures or dislocations. Ankle mortise is normally aligned. No suspicious bony lesions. No gross bony erosion or cortical destruction is seen. Soft tissues: Soft tissue swelling around ankle joint particularly over medial malleolus and along posterior aspect of the Achilles tendon is seen. Possible ulceration involving posterior left heel is seen. IMPRESSION: Extensive ankle soft tissue swelling as above. Possible small ulceration in posterior left heel. No ankle fracture or dislocation. No gross radiographic evidence of osteomyelitis. Dictated by: Herbie Richard M.D. on 01/06/2019 at 17:59 Approved by: Herbie Richard M.D. on 01/06/2019 at 18:[address] [facility] Narrative Medical decision making narrative: This patient is 78-year-old female who failed oral antibiotic medication treatment for cellulitis on her right ankle. She was initially treated by wound Care [facility] at [facility] 01/02/19 and started on cefuroxim 500 mg b.i.d. for 7 day course. She is afebrile but complaining of chills. Patient reports right ankle and foot pain. Right foot has faint pulse in posterior dorsal with mild redness and warmth palpate. Patient has odorous, thick yellow, green purulent discharge draining from the wound in her right foot and ankle. The skin on affected appears to be dark in black collar almost like gangrene. X-ray test on right ankle shows no gross radiographic evidence of osteomyelitis but extensive ankle soft tissue swelling and ulceration in posterior left heel. Patient takes Lasix daily for bilateral edema. Her BNP was less than 100. Lactate and procalcitonin was negative. Blood culture has been ordered and wound culture were sent out to lab. Normal elevated neutrophil today. CRP was elevated to 4.6 (4.5 on 01/02/19) and alkaline phosphatase as 144 today. Multiple attempts of IV started done in ED without success. PICC line charter representative was contacted and waiting for his/her arrival at 8:[address] Valdez was consulted for surgical intervention/debridement on her right ankle. Dr. Lincoln and CARMEN Gurrola were contacted for admission and they kindly accepted patient's care. <Deepak Hollis, DO - Last Filed: 01/09/19 20:22> Lab Data Labs: Lab Results 01/06/19 01/06/19 01/06/19 Range/Units 18:15 18:15 18:15 WBC 10.4 (4.5-11.0) X10^3/uL RBC 5.02 (4.0-5.2) X10^6/uL Hgb 13.9 (12.0-16.0) g/dL Hct 42.6 (36-46) % MCV 84.9 (80-100) fL MCH 27.8 (26-34) PG MCHC 32.7 (30-36) % RDW 14.8 (11.6-14.8) % Plt Count 333 (150-400) X10^3/uL Neut % (Auto) 79.9 H (50-75) % Lymph % (Auto) 6.8 L (25-40) % [place] % (Auto) 8.9 (3-14) % Eos % (Auto) 3.8 (2-4) % Baso % (Auto) 0.6 (0-2) % Neut # (Auto) 8300 H (1966-6637) /uL Lymph # (Auto) 700 L (4141-3727) /uL [place] # (Auto) 900 (0-900) /uL Eos # (Auto) 400 (0-450) /uL Baso # (Auto) 100 (0-100) /uL ESR (0-20) MM/HR Sodium 140 (137-145) mmol/L Potassium 4.1 (3.4-5.1) mmol/L Chloride 105 (98-107) mmol/L Carbon Dioxide 30 (22-32) mmol/L BUN 9 (7-17) mg/dL Creatinine 0.70 (0.52-1.04) mg/dL Estimated GFR > 60.0 (>60) mL/min BUN/Creatinine Ratio 12.9 (6-22) Glucose 110 (80-110) mg/dL Lactate (0.7-2.1) mmol/L Calcium 8.8 (8.4-10.2) mg/dL Total Bilirubin 0.5 (0.2-1.3) mg/dL AST 24 (14-36) IU/L ALT 6 L (9-52) IU/L Alkaline Phosphatase 144 H (38-126) U/L C-Reactive Protein (<1.0) mg/dL B-Natriuretic Peptide (<100) Total Protein 7.5 (6.3-8.2) g/dL Albumin 3.4 L (3.5-5.0) g/dL Globulin 4.1 (1.7-4.1) g/dL Albumin/Globulin Ratio 0.8 L (1.0-2.8) Procalcitonin 0.05 (<0.5) ng/mL 01/06/19 01/06/19 01/06/19 Range/Units 18:15 18:15 18:15 WBC (4.5-11.0) X10^3/uL RBC (4.0-5.2) X10^6/uL Hgb (12.0-16.0) g/dL Hct (36-46) % MCV (80-100) fL MCH (26-34) PG MCHC (30-36) % RDW (11.6-14.8) % Plt Count (150-400) X10^3/uL Neut % (Auto) (50-75) % Lymph % (Auto) (25-40) % [place] % (Auto) (3-14) % Eos % (Auto) (2-4) % Baso % (Auto) (0-2) % Neut # (Auto) (4206-2222) /uL Lymph # (Auto) (1289-5174) /uL [place] # (Auto) (0-900) /uL Eos # (Auto) (0-450) /uL Baso # (Auto) (0-100) /uL ESR 13 (0-20) MM/HR Sodium (137-145) mmol/L Potassium (3.4-5.1) mmol/L Chloride (98-107) mmol/L Carbon Dioxide (22-32) mmol/L BUN (7-17) mg/dL Creatinine (0.52-1.04) mg/dL Estimated GFR (>60) mL/min BUN/Creatinine Ratio (6-22) Glucose (80-110) mg/dL Lactate 0.9 (0.7-2.1) mmol/L Calcium (8.4-10.2) mg/dL Total Bilirubin (0.2-1.3) mg/dL AST (14-36) IU/L ALT (9-52) IU/L Alkaline Phosphatase (38-126) U/L C-Reactive Protein 4.6 H (<1.0) mg/dL B-Natriuretic Peptide (<100) Total Protein (6.3-8.2) g/dL Albumin (3.5-5.0) g/dL Globulin (1.7-4.1) g/dL Albumin/Globulin Ratio (1.0-2.8) Procalcitonin (<0.5) ng/mL 01/06/19 Range/Units 18:15 WBC (4.5-11.0) X10^3/uL RBC (4.0-5.2) X10^6/uL Hgb (12.0-16.0) g/dL Hct (36-46) % MCV (80-100) fL MCH (26-34) PG MCHC (30-36) % RDW (11.6-14.8) % Plt Count (150-400) X10^3/uL Neut % (Auto) (50-75) % Lymph % (Auto) (25-40) % [place] % (Auto) (3-14) % Eos % (Auto) (2-4) % Baso % (Auto) (0-2) % Neut # (Auto) (7963-4758) /uL Lymph # (Auto) (9790-5178) /uL [place] # (Auto) (0-900) /uL Eos # (Auto) (0-450) /uL Baso # (Auto) (0-100) /uL ESR (0-20) MM/HR Sodium (137-145) mmol/L Potassium (3.4-5.1) mmol/L Chloride (98-107) mmol/L Carbon Dioxide (22-32) mmol/L BUN (7-17) mg/dL Creatinine (0.52-1.04) mg/dL Estimated GFR (>60) mL/min BUN/Creatinine Ratio (6-22) Glucose (80-110) mg/dL Lactate (0.7-2.1) mmol/L Calcium (8.4-10.2) mg/dL Total Bilirubin (0.2-1.3) mg/dL AST (14-36) IU/L ALT (9-52) IU/L Alkaline Phosphatase (38-126) U/L C-Reactive Protein (<1.0) mg/dL B-Natriuretic Peptide < 100 (<100) Total Protein (6.3-8.2) g/dL Albumin (3.5-5.0) g/dL Globulin (1.7-4.1) g/dL Albumin/Globulin Ratio (1.0-2.8) Procalcitonin (<0.5) ng/mL Discharge Plan Departure Patient Disposition: Admitted As Inpatient Clinical Impression: Cellulitis Qualifiers: Site of cellulitis: extremity Site of cellulitis of extremity: lower extremity Laterality: right Qualified Code(s): L03.115 - Cellulitis of right lower limb Discharge Date/Time: 01/06/19 20:59 Referrals: Arya Beyer MD [Primary Care Provider] - Admit Date/Time: 01/06/19 19:36 Admit Provider: Dc Gurrola
[2019-01-06 17:45] VITALS: BP 136/50; PULSE 95; RESP 24; O2SAT 100
[2019-01-06 18:26] LABS: Add Manual Diff / Slide Review NO; Basophils Absolute Auto 100 /uL (0-100); Basophils Percent Auto 0.6 % (0-2); Eosinophils Absolute Auto 400 /uL (0-450); Eosinophils Percent Auto 3.8 % (2-4); Hematocrit 42.6 % (36-46); Hemoglobin 13.9 g/dL (12.0-16.0); Lymphocytes Absolute Auto 700 /uL (1100-4500); Lymphocytes Percent Auto 6.8 % (25-40); Mean Corpuscular HGB Conc 32.7 % (30-36); Mean Corpuscular Hemoglobin 27.8 PG (26-34); Mean Corpuscular Volume 84.9 fL (80-100); Monocytes Absolute Auto 900 /uL (0-900); Monocytes Percent Auto 8.9 % (3-14); Neutrophils Absolute Auto 8300 /uL (1500-7000); Neutrophils Percent Auto 79.9 % (50-75); Platelet Count 333 X10^3/uL (150-400); Red Blood Cell Count 5.02 X10^6/uL (4.0-5.2); Red Cell Distribution Width 14.8 % (11.6-14.8); White Blood Cell Count 10.4 X10^3/uL (4.5-11.0)
[2019-01-06 18:45] LABS: Albumin 3.4 g/dL (3.5-5.0); Alkaline Phosphatase 144 U/L (38-126); Aspartate Aminotransferase 24 IU/L (14-36); BUN Creatinine Ratio 12.9 (6-22); Bilirubin Total 0.5 mg/dL (0.2-1.3); Blood Urea Nitrogen 9 mg/dL (7-17); Calcium 8.8 mg/dL (8.4-10.2); Carbon Dioxide 30 mmol/L (22-32); Chloride 105 mmol/L (98-107); Estimated Glomerular Filt Rate > 60.0 mL/min (>60); Glucose 110 mg/dL (80-110); Potassium 4.1 mmol/L (3.4-5.1); Sodium 140 mmol/L (137-145); Total Protein 7.5 g/dL (6.3-8.2)
[2019-01-06 18:46] LABS: Albumin Globulin Ratio 0.8 (1.0-2.8); Globulin 4.1 g/dL (1.7-4.1); HEMOLYSIS < 15 (0-50); Lactate (Lactic Acid) 0.9 mmol/L (0.7-2.1)
[2019-01-06 18:47] LABS: C-Reactive Protein Quant 4.6 mg/dL (<1.0)
[2019-01-06 18:49] LABS: B Type Natriuretic Peptide < 100 (<100)
[2019-01-06 18:50] LABS: Erythrocyte Sedimentation Rate 13 MM/HR (0-20)
[2019-01-06 19:01] LABS: Alanine Aminotransferase 6 IU/L (9-52)
[2019-01-06 19:10] VITALS: BP 136/94; PULSE 64; RESP 25; O2SAT 98
[2019-01-06 19:11] LABS: Procalcitonin 0.05 ng/mL (<0.5)
--- NOTE | 2019-01-06 19:13 | PC.NURSE ---
unable to obtain IV access, have requested PICC placement
--- NOTE | 2019-01-06 20:02 | PC.NURSE ---
report called to jhony in icu
--- NOTE | 2019-01-06 20:15 | PM.HP.1 ---
History of Present Illness History of Present Illness Date Patient Seen: 01/06/19 Time Patient Seen: 19:46 Chief complaint: Right lower extremity wound, sent from Dr Valdez Narrative: Ms. Tiffanie Gomez is a 78-year-old female patient with a history significant chronic venous hypertension and bilateral lower extremity edema, venous stasis dermatitis and recurrent ulcerations and cellulitis. The patient ulcers on her right foot and ankle approximately 9 or 10 days ago. The patient was referred to the wound clinic by her PCP and was evaluated on 01/02/2019. At the wound clinic she was evaluated and referred to Dr. Valdez for wound debridement where she in today and subsequently referred to the ER. The patient has wounds on the medial and lateral aspects of her ankle dorsum of the foot and distal lower extremity. The wounds have malodorous brownish drainage. There is surrounding erythema, swelling with marked tenderness to touch. Patient has been being treated with cefuroxime mean 500 mg twice daily on an outpatient basis. The patient reports associated symptoms of chills which started last night but denies fevers, dizziness, nausea vomiting. The patient was last admitted for treatment of cellulitis on 10/23 2018. The patient denies headaches nasal congestion or sore throat, has no chest pain or palpitations, shortness of breath cough or wheeze. She denies abdominal pain nausea vomiting, diarrhea or constipation. She is able to ambulate with a walker around her home and uses a wheelchair in the community. Upon arrival to the ER the patient had a temperature of 98.9?, heart rate of 118, blood pressure 136/50, respirations of 22 saturating 92% on room air. And ankle x-ray was taken which identified extensive soft tissue swelling but found no bony lesions, low suspicion of osteomyelitis. On laboratory analysis she has a white count of 10.4, hemoglobin of 13.9 hematocrit of 42.6 and platelets 333 her electrolytes are within normal range with a BUN of 9 and creatinine is 0.7 and a nonfasting glucose of 110. Her coagulations are unremarkable. She has lactic acid that is negative for 0.9, procalcitonin of 0.05, a sed rate that is normal at 13 and elevated CRP of 4.6. A PICC line is inserted in the ER following failure of multiple attempts to establish peripheral access. Patient is admitted for cellulitis and wound infection failing outpatient treatment. Patient History Medical History (Updated 01/06/19 @ 20:32 by ДМИТРИЙ Ritter) Cellulitis (Inactive) Chronic venous hypertension (idiopathic) with ulcer and inflammation of left lower extremity (Inactive) Chronic venous hypertension (idiopathic) with ulcer and inflammation of right lower extremity (Inactive) Lymphedema of both lower extremities (Inactive) Morbid obesity (Acute) Stasis dermatitis (Acute) Wound of lower extremity (Acute) Surgical History H/O umbilical hernia repair (Acute) Family History Father Cancer Mother Cancer Social History household members: children Smoking Status: Never smoker alcohol intake: never Family & Social History Family History Father Cancer Mother Cancer Social History: household members children Tobacco & Substance use: Smoking Status Never smoker alcohol intake never alcohol intake frequency 0-2 drinks per day Substance Use Type does not use Comment: The patient is and lives with her son in a single family home. The patient is minimally ambulatory using a walker at home and a wheelchair in the community. The patient's parents are both and she has no siblings. Smoking: The patient denies ever smoking. Alcohol: The patient denies alcohol consumption. Substance use. The patient denies recreational pharmaceuticals, herbal or cannabis use. Advanced directives: In direct discussion with the patient she expresses her wishes to be FULL CODE. She designates her daughter Nasima to be her surrogate decision maker. Meds Home Medications and Allergies Home Medications Medication Instructions Recorded Confirmed Type acetaminophen 650 mg PO Q6HP PRN #0 05/25/17 01/06/19 History furosemide [Lasix] 80 mg PO QDAY #30 tab 05/29/17 01/06/19 Rx alendronate 70 mg PO QWEEK 10/24/18 01/06/19 History cefuroxime axetil 500 mg PO BID 01/06/19 01/06/19 History Allergies Allergy/AdvReac Type Severity Reaction Status Date / Time amoxicillin [From Augmentin] Allergy Severe rash, Verified 01/06/19 16:11 flushing, nausea,vomiting clavulanic acid Allergy Severe rash, Verified 01/06/19 16:11 [From Augmentin] flushing, nausea,vomiting vancomycin [VANCOMYCIN] Allergy Severe URSULA Verified 01/06/19 16:11 SYNDROME, CHILLS/SHAKING, TACHYCARDIA, HYPERTENSION codeine Allergy Intermediate hives, Verified 01/06/19 16:11 vomiting fluconazole Allergy Intermediate hives Verified 01/06/19 16:11 nafcillin Allergy Intermediate rash Verified 01/06/19 16:11 oxycodone Allergy Intermediate rash, Verified 01/06/19 16:11 MENTAL CHANGES piperacillin Allergy Intermediate rash Verified 01/06/19 16:11 fish oil Allergy Unknown Verified 01/06/19 16:11 morphine AdvReac Unknown PASS OUT, Verified 01/06/19 16:11 RACING HEART DIALUDID AdvReac Unknown MENTAL Uncoded 01/06/19 16:11 STATUS CHANGES Review of Systems Review of Systems ROS Unobtainable: All systems reviewed & are unremarkable except as noted in HPI and below Exam Vital Signs (past 8 hours): - 01/06/19 16:18 01/06/19 17:45 01/06/19 19:10 Temperature 98.1 F Pulse Rate 118 H 95 H 64 Respiratory Rate 22 24 25 H Blood Pressure [Right Wrist] 136/50 L 136/94 H Pulse Oximetry 92 100 98 Oxygen Delivery Method Room Air Narrative Exam Narrative: GENERAL APPEARANCE: well developed, morbidly obese female, somewhat unkempt, uncomfortable appearing. HEAD: Normocephalic, atraumatic. EYES: KELLIE, conjunctivae is clear and sclera non-icteric, extraocular movement intact without nystagmus. EARS: normal external structures, no ear pain NOSE: sinuses non tender to percussion, no rhinorrhea ORAL CAVITY: mucosa moist without lesions or exudate, palate normal, tongue in midline. THROAT: normal, no erythema, no exudate, pharynx normal, uvula midline. NECK/THYROID: neck supple, no jugular venous distention, no carotid bruit appreciated, no thyromegaly, trachea midline. LYMPH NODES: no cervical or supraclavicular lymphadenopathy. SKIN: warm, dry and pink, venous stasis changes bilateral lower extremities, cellulitis RLE, approximately 5 cm draining wound right lateral ankle, 3.5 cm over medial ankle, approximately 2 cm wound distal right lower extremity and over the dorsum of the right foot. HEART: regular rate and rhythm, S1-S2 1/6 systolic murmur, no rubs or gallops, brisk capillary refill, 3 + bilateral lower extremity edema. LUNGS: Breath sounds are diminished but clear to auscultation bilaterally, no coarseness crackles or wheezing, no cough present CHEST: Symmetrical movement, shallow tidal volume, no accessory muscle use. ABDOMEN: Soft, obese, no abdominal tenderness on palpation, no guarding or peritoneal signs, no organomegaly however exam limited by body habitus, active bowel tones. EXTREMITIES: Pain with movement of the right lower extremity, bilateral upper extremity strength is 5/5, bilateral lower extremity strength is 4/5 and symmetrical NEUROLOGIC: AAO x3, no focal neurologic deficits, sensory exam intact to light touch, hearing grossly normal to speech. PSYCH: Alert and responsive, cognitive function intact, fair eye contact, flat affect, covers lower face with blanket. Objective Labs Result Diagrams: 01/06/19 18:15 01/06/19 18:15 Labs: Laboratory Results - last 24 hr 01/06/19 01/06/19 01/06/19 18:15 18:15 18:15 WBC 10.4 RBC 5.02 Hgb 13.9 Hct 42.6 MCV 84.9 MCH 27.8 MCHC 32.7 RDW 14.8 Plt Count 333 Neut % (Auto) 79.9 H Lymph % (Auto) 6.8 L [place] % (Auto) 8.9 Eos % (Auto) 3.8 Baso % (Auto) 0.6 Neut # (Auto) 8300 H Lymph # (Auto) 700 L [place] # (Auto) 900 Eos # (Auto) 400 Baso # (Auto) 100 ESR Sodium 140 Potassium 4.1 Chloride 105 Carbon Dioxide 30 BUN 9 Creatinine 0.70 Estimated GFR > 60.0 BUN/Creatinine Ratio 12.9 Glucose 110 Lactate Calcium 8.8 Total Bilirubin 0.5 AST 24 ALT 6 L Alkaline Phosphatase 144 H C-Reactive Protein B-Natriuretic Peptide Total Protein 7.5 Albumin 3.4 L Globulin 4.1 Albumin/Globulin Ratio 0.8 L Procalcitonin 0.05 01/06/19 01/06/19 01/06/19 18:15 18:15 18:15 WBC RBC Hgb Hct MCV MCH MCHC RDW Plt Count Neut % (Auto) Lymph % (Auto) [place] % (Auto) Eos % (Auto) Baso % (Auto) Neut # (Auto) Lymph # (Auto) [place] # (Auto) Eos # (Auto) Baso # (Auto) ESR 13 Sodium Potassium Chloride Carbon Dioxide BUN Creatinine Estimated GFR BUN/Creatinine Ratio Glucose Lactate 0.9 Calcium Total Bilirubin AST ALT Alkaline Phosphatase C-Reactive Protein 4.6 H B-Natriuretic Peptide Total Protein Albumin Globulin Albumin/Globulin Ratio Procalcitonin 01/06/19 18:15 WBC RBC Hgb Hct MCV MCH MCHC RDW Plt Count Neut % (Auto) Lymph % (Auto) [place] % (Auto) Eos % (Auto) Baso % (Auto) Neut # (Auto) Lymph # (Auto) [place] # (Auto) Eos # (Auto) Baso # (Auto) ESR Sodium Potassium Chloride Carbon Dioxide BUN Creatinine Estimated GFR BUN/Creatinine Ratio Glucose Lactate Calcium Total Bilirubin AST ALT Alkaline Phosphatase C-Reactive Protein B-Natriuretic Peptide < 100 Total Protein Albumin Globulin Albumin/Globulin Ratio Procalcitonin Assessment & Plan Assessment & Plan narrative: This is a 78-year-old female patient who is admitted to the hospital for right leg cellulitis in the setting of venous stasis and chronic leg ulcerations. 1. Acute cellulitis right lower extremity, present on admission. -patient reports onset of symptoms approximately 9-10 days ago with development of ulcers. Patient is referred to the emergency department following wound evaluation by Dr. Valdez -WBCs are normal at 10.4, elevated neutrophils at 79.9 %, procalcitonin 0.05, lactate was normal at 0 point, CRP is elevated at 4.9, SOFA score is 1 -patient has previously had culture results including Staph, Alcaligenes, Pseudomonas and Proteus and is allergic to vancomyci, clavulanic acid, amoxicillin, nafcillin and Pipracillin -patient started on linezolid 600 mg IV every 12 hours and meropenem 1 g IV every 8 hours -Dr. Valdez has evaluated the patient with tentative plan for debridement but time is yet unknown. -Patient will remain NPO. 2. Chronic Venous hypertension bilateral lower extremities, present on admission. -patient with bilateral lower extremity edema that has been worsening over the last few days per patient report. -patient is on home Lasix 80 mg daily, the patient is no longer on potassium supplementation has a potassium of 4.1 and sodium of 140. -continue home regimen of Lasix 80 mg daily. -apply leg wraps left lower extremity 3. Venous stasis leg ulcers, active -the patient has progressive/worsening ulcers distal right lower leg, bilateral ankle and dorsum of the foot -wounds are covered with Adaptic but her malodorous with drainage. -wound cultures are pending -Dr. Valdez has evaluated the patient with tentative plan for debridement. 4. Morbid obesity, active -patient weight 127.46 kg and height 65 in, BMI calculated at 46.76 -patient is community dwelling and has severely impaired mobility minimal ambulation. -dietary to consult -PT and OT to consult and treat. The patient is admitted the hospital due to the severity and extent of her cellulitis and developing wounds failing outpatient treatment and the risk of complications and adverse events. The patient is admitted as an inpatient with expected length of stay is greater than 2 midnights. Scores GCS [place] coma scale eye opening: Spontaneous Obed coma scale verbal response: Orientated Obed coma scale motor response: Obey commands Obed coma scale total score: 15 SOFA PaO2/FIO2: < 400 mmHg Platelets: >= 150 Bilirubin: < 1.2 mg/dL Hypotension: MAP >= 70 mmHg [place] Coma Scale: 15 Renal: < 1.2 mg/dL SOFA Score: 1
--- NOTE | 2019-01-06 21:14 | PC.NURSE ---
Addendum entered by Awilda Montiel R.N. 01/06/19 22:15: SR with PACs. BP 140/85. HR 95/ Denies chest pain. LUE DL MIDLINE with NS bolu sof 500cc/hr running, continuous rate of 100 and IV Abx x 2 given upon admission to ICU Pt admitted with dirty urine soaked brief in place. Pt states is incontinent at times and wears the same dirty underwear for two days at a time. UA pending. Recommend fair catheter. Right anterior bee with open sore, pink with some necrotic tissue noted, serous drainage noted. Dorsal aspet of right foot with pieces of previous dressing, weeping yellow serous drainage and medical lateral aspect of right ankle with open wound as well. All foul smelling, painfful to touch, extremely warm. Foot cradle in place to decrease irritation from sheets and blankets. Chucks pads placed below both lower extremities. Left [employer], awaiting OR instrutions for dressings. Original Note: 2100 pt admitted from ER via stretcher to ICU. Transferred to bed safely with asssit x2. Pt in home clothes still, soiled diaper worn two days per patient. Quick bath given, slothes removed, VSS, temp 101.[address]- to start IV abx now. Pt with excoriation throughout entire large panus, skin [employer]ANT with barrier protective ointment placed in ICU, red and raw, non draining skin breakdown. BLE with open wounds and necrotic tissue noted, yellow sloughing, foul oor. Placed on new chucks pads and pictures taken for skin assessment. BLE areas not with open sores are erythematous and flaky. Pt oriented to ICU given call duran. Will acknowledge orders and carry through with plan of care.
[2019-01-06 21:30] VITALS: BP 140/85; PULSE 95; RESP 26; TEMP 38.8; O2SAT 95
[2019-01-06] MEDS: SODIUM CHLORIDE 0.9% 1,000 ML 100 ML IV (21:38)
[2019-01-06] MEDS: SODIUM CHLORIDE 0.9% 500 ML 1000 ML IV (21:39)
[2019-01-06] MEDS: MEROPENEM 1 GM in SODIUM CHLORIDE 0.9% 100 ML 200 ML IV (21:40)
[2019-01-06] MEDS: LINEZOLID 600 MG/300 ML IV.SOLN IV (21:40)
[2019-01-06] MEDS: ACETAMINOPHEN 325 MG TABLET 650 MG PO (21:47)
[2019-01-06 22:10] VITALS: O2SAT 95
[2019-01-06 22:36] VITALS: BMI 46.5
[2019-01-06 23:45] VITALS: BP 139/54; PULSE 91; RESP 24; TEMP 38.8; O2SAT 95
[2019-01-07] VITALS (20 sets, daily range): BP systolic 91–151; BP diastolic 29–71; PULSE 74–96; RESP 14–24; TEMP 36.1–38.8; O2SAT 93–97; BMI 46.5
[2019-01-07] MEDS: KETOROLAC 30 MG/ML VIAL IV ×2 (00:09→16:07)
[2019-01-07] MEDS: ACETAMINOPHEN 325 MG TABLET 975 MG PO ×3 (00:10→16:06)
[2019-01-07] MEDS: SODIUM CHLORIDE 0.9% 1,000 ML 100 ML IV ×2 (02:23→12:39)
[2019-01-07 05:08] LABS: Add Manual Diff / Slide Review NO; Basophils Absolute Auto 100 /uL (0-100); Basophils Percent Auto 0.9 % (0-2); Eosinophils Absolute Auto 500 /uL (0-450); Eosinophils Percent Auto 6.6 % (2-4); Hematocrit 37.1 % (36-46); Lymphocytes Absolute Auto 1000 /uL (1100-4500); Lymphocytes Percent Auto 13.4 % (25-40); Mean Corpuscular HGB Conc 32.4 % (30-36); Mean Corpuscular Hemoglobin 27.2 PG (26-34); Mean Corpuscular Volume 84.1 fL (80-100); Monocytes Absolute Auto 900 /uL (0-900); Neutrophils Absolute Auto 5100 /uL (1500-7000); Neutrophils Percent Auto 67.1 % (50-75); Platelet Count 269 X10^3/uL (150-400); Red Blood Cell Count 4.41 X10^6/uL (4.0-5.2); Red Cell Distribution Width 14.8 % (11.6-14.8); White Blood Cell Count 7.5 X10^3/uL (4.5-11.0)
[2019-01-07 05:12] LABS: BUN Creatinine Ratio 12.5 (6-22); Blood Urea Nitrogen 10 mg/dL (7-17); Calcium 7.8 mg/dL (8.4-10.2); Carbon Dioxide 25 mmol/L (22-32); Chloride 107 mmol/L (98-107); Estimated Glomerular Filt Rate > 60.0 mL/min (>60); Glucose 92 mg/dL (80-110); HEMOLYSIS 17 (0-50); Potassium 3.8 mmol/L (3.4-5.1); Sodium 139 mmol/L (137-145)
[2019-01-07] MEDS: MEROPENEM 1 GM/50 ML PIGGYBACK IV ×3 (05:30→20:03)
--- NOTE | 2019-01-07 07:40 | PM.PN.1 ---
Exam Vital Signs (past 8 hours): - 01/06/19 23:45 01/07/19 00:09 01/07/19 00:10 Temperature 101.9 F H 101.9 F H 101.9 F H Pulse Rate 91 H Respiratory Rate 24 Blood Pressure 139/54 L Pulse Oximetry 95 01/07/19 02:00 01/07/19 03:03 01/07/19 06:00 Temperature 99.7 F H Pulse Rate 76 Respiratory Rate 19 Blood Pressure 131/54 L Pulse Oximetry 94 94 95 Oxygen Delivery Method Room Air Oxygen Flow Rate 0 Objective Labs Result Diagrams: 01/07/19 04:50 01/07/19 04:50 Labs: Laboratory Results - last 24 hr 01/06/19 01/06/19 01/06/19 18:15 18:15 18:15 WBC 10.4 RBC 5.02 Hgb 13.9 Hct 42.6 MCV 84.9 MCH 27.8 MCHC 32.7 RDW 14.8 Plt Count 333 Neut % (Auto) 79.9 H Lymph % (Auto) 6.8 L [place] % (Auto) 8.9 Eos % (Auto) 3.8 Baso % (Auto) 0.6 Neut # (Auto) 8300 H Lymph # (Auto) 700 L [place] # (Auto) 900 Eos # (Auto) 400 Baso # (Auto) 100 ESR Sodium 140 Potassium 4.1 Chloride 105 Carbon Dioxide 30 BUN 9 Creatinine 0.70 Estimated GFR > 60.0 BUN/Creatinine Ratio 12.9 Glucose 110 Lactate Calcium 8.8 Total Bilirubin 0.5 AST 24 ALT 6 L Alkaline Phosphatase 144 H C-Reactive Protein B-Natriuretic Peptide Total Protein 7.5 Albumin 3.4 L Globulin 4.1 Albumin/Globulin Ratio 0.8 L Procalcitonin 0.05 Nasal Screen MRSA (PCR) 01/06/19 01/06/19 01/06/19 18:15 18:15 18:15 WBC RBC Hgb Hct MCV MCH MCHC RDW Plt Count Neut % (Auto) Lymph % (Auto) [place] % (Auto) Eos % (Auto) Baso % (Auto) Neut # (Auto) Lymph # (Auto) [place] # (Auto) Eos # (Auto) Baso # (Auto) ESR 13 Sodium Potassium Chloride Carbon Dioxide BUN Creatinine Estimated GFR BUN/Creatinine Ratio Glucose Lactate 0.9 Calcium Total Bilirubin AST ALT Alkaline Phosphatase C-Reactive Protein 4.6 H B-Natriuretic Peptide Total Protein Albumin Globulin Albumin/Globulin Ratio Procalcitonin Nasal Screen MRSA (PCR) 01/06/19 01/06/19 01/07/19 18:15 21:50 02:30 WBC RBC Hgb Hct MCV MCH MCHC RDW Plt Count Neut % (Auto) Lymph % (Auto) [place] % (Auto) Eos % (Auto) Baso % (Auto) Neut # (Auto) Lymph # (Auto) [place] # (Auto) Eos # (Auto) Baso # (Auto) ESR Sodium Potassium Chloride Carbon Dioxide BUN Creatinine Estimated GFR BUN/Creatinine Ratio Glucose Lactate Calcium Total Bilirubin AST ALT Alkaline Phosphatase C-Reactive Protein B-Natriuretic Peptide < 100 Total Protein Albumin Globulin Albumin/Globulin Ratio Procalcitonin Nasal Screen MRSA (PCR) Positive for mrsa H Cancelled 01/07/19 01/07/19 04:50 04:50 WBC 7.5 RBC 4.41 Hgb 12.0 Hct 37.1 MCV 84.1 MCH 27.2 MCHC 32.4 RDW 14.8 Plt Count 269 Neut % (Auto) 67.1 Lymph % (Auto) 13.4 L [place] % (Auto) 12.0 Eos % (Auto) 6.6 H Baso % (Auto) 0.9 Neut # (Auto) 5100 Lymph # (Auto) 1000 L [place] # (Auto) 900 Eos # (Auto) 500 H Baso # (Auto) 100 ESR Sodium 139 Potassium 3.8 Chloride 107 Carbon Dioxide 25 BUN 10 Creatinine 0.80 Estimated GFR > 60.0 BUN/Creatinine Ratio 12.5 Glucose 92 Lactate Calcium 7.8 L Total Bilirubin AST ALT Alkaline Phosphatase C-Reactive Protein B-Natriuretic Peptide Total Protein Albumin Globulin Albumin/Globulin Ratio Procalcitonin Nasal Screen MRSA (PCR) Assessment & Plan Assessment & Plan narrative: 78-year-old female with morbid obesity, chronic right lower extremity venous ulcer secondary to lymphedema and venous stasis disease now acutely infected and with necrotic tissue. Needs hospital admission for the management of her wound. Ultimately she needs placement in a long-term care facility as she is unable to adequately care for herself at home and this is reflected in the fact that she has numerous admissions for management of her wounds and cellulitis. -Excisional drebridement of RLE today in OR -NPO -Antibiotics -BERNARDINO wraps for compression -Elevation of the lower extremities -Wet to dry dressings with Dakins twice daily
--- NOTE | 2019-01-07 07:58 | P.PN_ITS ---
Subjective Subjective Date Patient Seen: 01/07/19 Time Patient Seen: 08:01 Interval history: Ms. Tiffanie Gomez is a 78-year-old female patient with a history significant chronic venous hypertension and bilateral lower extremity edema, venous stasis dermatitis and recurrent ulcerations and cellulitis who was admitted for acutely infected ulcerations in her right lower extremity with necrotic tissue. Dr. Valdez with surgery saw her in the clinic and was the person who referred her to the ED. 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 She is planned for debridement of necrotic tissue with Dr. Valdez today. She complains minimal pain in her right lower extremity, she admits to having so me chills prior to going to see her primary care provider but denies chills overnight. She was febrile to 101 yesterday. She denies any nausea, vomiting, abdominal pain, cough, shortness of breath, headache. Exam Vital Signs (past 8 hours): - 01/07/19 00:09 01/07/19 00:10 01/07/19 02:00 Temperature 101.9 F H 101.9 F H Pulse Rate Respiratory Rate Blood Pressure Pulse Oximetry 94 01/07/19 03:03 01/07/19 06:00 01/07/19 07:42 Temperature 99.7 F H 96.9 F L Pulse Rate 76 74 Respiratory Rate 19 24 Blood Pressure 131/54 L 113/59 L Pulse Oximetry 94 95 95 Oxygen Delivery Method Room Air Oxygen Flow Rate 0 Narrative Exam Narrative: GENERAL APPEARANCE: Well developed, morbidly obese female, no acute distress, somewhat discheveled. SKIN: warm, dry, venous stasis changes bilaterally to knees. Mild right lower extremity cellulitis improved from initial exam. 5 cm draining R lateral ankle wound, medial ankle wound 4 cm and 2 cm distal RLE, as well as over the dorsum of her right foot. HEENT: The sclerae were anicteric and conjunctivae were pink and moist. Ext raocular movements were intact and pupils were equal, round with normal accommodation. External inspection of the ears and nose showed no scars, lesions, or masses. Lips, teeth, and gums showed normal mucosa. The oral mucosa, hard and soft palate, tongue and posterior pharynx were unremarkable. NECK: Supple and symmetric. There was no thyroid enlargement, and no tenderness, or masses were felt. CHEST: Normal AP diameter and normal contour without any kyphoscoliosis. LUNGS: Auscultation of the lungs revealed no wheezes, rhonchi, or rales. CARDIOVASCULAR: There was a regular rate and rhythm without any murmurs, gallops, rubs. Peripheral pulses were 2+ and symmetric. ABDOMEN: Soft and nontender with normal bowel sounds. No ascites was noted. MUSCULOSKELETAL: There was no tenderness or effusions noted. Muscle strength and tone were normal. EXTREMITIES: No cyanosis, clubbing. There is significant edema. NEUROLOGIC: Alert and oriented x 3. Normal affect. Sensation to touch was normal. Objective Labs Result Diagrams: 01/07/19 04:50 01/07/19 04:50 Labs: Laboratory Results - last 24 hr 01/06/19 01/06/19 01/06/19 18:15 18:15 18:15 WBC 10.4 RBC 5.02 Hgb 13.9 Hct 42.6 MCV 84.9 MCH 27.8 MCHC 32.7 RDW 14.8 Plt Count 333 Neut % (Auto) 79.9 H Lymph % (Auto) 6.8 L [place] % (Auto) 8.9 Eos % (Auto) 3.8 Baso % (Auto) 0.6 Neut # (Auto) 8300 H Lymph # (Auto) 700 L [place] # (Auto) 900 Eos # (Auto) 400 Baso # (Auto) 100 ESR Sodium 140 Potassium 4.1 Chloride 105 Carbon Dioxide 30 BUN 9 Creatinine 0.70 Estimated GFR > 60.0 BUN/Creatinine Ratio 12.9 Glucose 110 Lactate Calcium 8.8 Total Bilirubin 0.5 AST 24 ALT 6 L Alkaline Phosphatase 144 H C-Reactive Protein B-Natriuretic Peptide Total Protein 7.5 Albumin 3.4 L Globulin 4.1 Albumin/Globulin Ratio 0.8 L Procalcitonin 0.05 Nasal Screen MRSA (PCR) 01/06/19 01/06/19 01/06/19 18:15 18:15 18:15 WBC RBC Hgb Hct MCV MCH MCHC RDW Plt Count Neut % (Auto) Lymph % (Auto) [place] % (Auto) Eos % (Auto) Baso % (Auto) Neut # (Auto) Lymph # (Auto) [place] # (Auto) Eos # (Auto) Baso # (Auto) ESR 13 Sodium Potassium Chloride Carbon Dioxide BUN Creatinine Estimated GFR BUN/Creatinine Ratio Glucose Lactate 0.9 Calcium Total Bilirubin AST ALT Alkaline Phosphatase C-Reactive Protein 4.6 H B-Natriuretic Peptide Total Protein Albumin Globulin Albumin/Globulin Ratio Procalcitonin Nasal Screen MRSA (PCR) 01/06/19 01/06/19 01/07/19 18:15 21:50 02:30 WBC RBC Hgb Hct MCV MCH MCHC RDW Plt Count Neut % (Auto) Lymph % (Auto) [place] % (Auto) Eos % (Auto) Baso % (Auto) Neut # (Auto) Lymph # (Auto) [place] # (Auto) Eos # (Auto) Baso # (Auto) ESR Sodium Potassium Chloride Carbon Dioxide BUN Creatinine Estimated GFR BUN/Creatinine Ratio Glucose Lactate Calcium Total Bilirubin AST ALT Alkaline Phosphatase C-Reactive Protein B-Natriuretic Peptide < 100 Total Protein Albumin Globulin Albumin/Globulin Ratio Procalcitonin Nasal Screen MRSA (PCR) Positive for mrsa H Cancelled 01/07/19 01/07/19 04:50 04:50 WBC 7.5 RBC 4.41 Hgb 12.0 Hct 37.1 MCV 84.1 MCH 27.2 MCHC 32.4 RDW 14.8 Plt Count 269 Neut % (Auto) 67.1 Lymph % (Auto) 13.4 L [place] % (Auto) 12.0 Eos % (Auto) 6.6 H Baso % (Auto) 0.9 Neut # (Auto) 5100 Lymph # (Auto) 1000 L [place] # (Auto) 900 Eos # (Auto) 500 H Baso # (Auto) 100 ESR Sodium 139 Potassium 3.8 Chloride 107 Carbon Dioxide 25 BUN 10 Creatinine 0.80 Estimated GFR > 60.0 BUN/Creatinine Ratio 12.5 Glucose 92 Lactate Calcium 7.8 L Total Bilirubin AST ALT Alkaline Phosphatase C-Reactive Protein B-Natriuretic Peptide Total Protein Albumin Globulin Albumin/Globulin Ratio Procalcitonin Nasal Screen MRSA (PCR) Assessment & Plan Assessment & Plan narrative: This is a 78-year-old female patient who is admitted to the hospital for right leg cellulitis in the setting of venous stasis and chronic leg ulcerations, she has failed outpatient antibiotic therapy and requires debridement today of necrotic wounds. 1. Acute cellulitis right lower extremity, present on admission. -patient reports onset of symptoms approximately 9-10 days ago with development of ulcers. Patient is referred to the emergency department following wound evaluation by Dr. Valdez -WBCs are normal at 10.4, elevated neutrophils at 79.9 %, procalcitonin 0.05, lactate was normal at 0 point, CRP is elevated at 4.9, SOFA score is 1 -patient has previously had culture results including Staph, Alcaligenes, Pseudomonas and Proteus and is allergic to vancomyci, clavulanic acid, amoxicillin, nafcillin and Pipracillin -patient started on linezolid 600 mg IV every 12 hours and meropenem 1 g IV every 8 hours -Dr. Valdez has evaluated the patient with tentative plan for debridement likely today. -Patient will remain NPO. -ESR is 13 on admission labs, no evidence of osteomyelitis on XR imaging of RLE. 2. Chronic Venous hypertension bilateral lower extremities, present on admission. -patient with bilateral lower extremity edema that has been worsening over the last few days per patient report. -patient is on home Lasix 80 mg daily, the patient is no longer on potassium supplementation has a potassium of 4.1 and sodium of 140. -continue home regimen of Lasix 80 mg daily. -apply leg wraps left lower extremity 3. Venous stasis leg ulcers, active -the patient has progressive/worsening ulcers distal right lower leg, bilateral ankle and dorsum of the foot -wounds are covered with Adaptic but her malodorous with drainage. -wound cultures are pending -Dr. Valdez has evaluated the patient with tentative plan for debridement today. 4. Morbid obesity, active -patient weight 127.46 kg and height 65 in, BMI calculated at 46.76 -patient is community dwelling and has severely impaired mobility minimal ambulation. -dietary to consult -PT and OT to consult and treat. Dispo: remains inpatient DVT: Lovenox daily, hold today for possible OR. Code: Full
[2019-01-07] MEDS: NYSTATIN POWDER 15GM 1 APPLIC TOP ×2 (09:43→20:04)
[2019-01-07] MEDS: LINEZOLID 600 MG/300 ML IV.SOLN IV ×2 (09:44→21:00)
--- NOTE | 2019-01-07 13:58 | PC.NURSE ---
Day Shift Note Patient is alert and oriented x3. NPO in preparation for wound debridement this afternoon. Assisting patient to turn from side to side, back of thighs dark red and blanchable with multiple open areas (see physical assessment). LLE wrapped in BERNARDINO wrap and elevated on pillow. RLE wounds open to air with chux pad underneath and leg elevated on pillow, moderate amount serous drainage noted. Dressing orders received from Dr. Courtney Melton for dressing changes ready tomorrow at [facility]. Macerated and erythemic skin under pannus and throughout chantal-area - cleansed and nystatin powder applied. Pt reports pain with position changes but declines any pain medications at this time. Oxygen sats 97% RA. Call light within reach, using appropriately to make needs known.
--- NOTE | 2019-01-07 15:26 | CM.DANOTE ---
DCP Brief Assessment: Reviewed Chart. Patient is a 78 yr old female who was admitted through the ED with Rt lower extremity wound infection. PCP Dr. Arya Beyer. Insurance: 1st payer: Medicare 2nd payer: [employer]. Did not meet with patient today due to patient prepping for Surgery, I &D to RT leg. Per Medical staff and MD patient will most likely need to go to SNF. CM team to interview when medically appropriate most likely 01/11/2019. HS. Discharge Planning/Care Management CM Discharge Assessment Start: 01/07/19 15:19 Freq: Status: Active Protocol: Document 01/07/19 15:20 HS (Rec: 01/07/19 15:26 HS [id number]) Discharge Planning Assessment Assigned Wallpaper Inspector And Shipper Teetee Madera RN DPOA/Assigned Designee Name Nasima Boykin (daughter) [phone] Advance Directives? No Advance Directives on File No History Provided By Medical Record Has Patient been admitted in last 30 No days? Prior Living Arrangements House Household Members children Independent with ADL's No: per EMR review Is patient alert and oriented? Yes Needs Assistance With Toileting Caregiver for Another No Patient/Family Preference Intermediate Facility Comment IV Abx, family works fulltime Discharge Plan Intermediate Facility Transportation Arrangement Pt has local son and Dtr who usually provide transport Additional Comment Pending further assessment Whiteboard Updated in Patient Room with No name and ext. # of Wallpaper Inspector And Shipper Review Status In Process Next Review Type Continued Stay Review
--- NOTE | 2019-01-07 16:10 | PC.NURSE ---
Addendum entered by Awilda Montiel R.N. 01/07/19 20:08: Tolerated regular diet well. Denies N. Reports no pain. Lying comfortably in bed, no complaints, smiling and conversign approrpiately. Explained importance of rotating patient q2hrs from side to side with current skin breakdown and condition. Pt refused. Nystatin applied to panus and groin folds. IV Abx hung this evening. Remains afebrile. NS@100cc/hr via DL Midline. Addendum entered by Awilda Montiel R.N. 01/07/19 18:40: Diet AAT. Tolerating clears/mechanical soft now. Will have regular diet later this evening if no N/V. Pt verbalized understanding of need for advancing diet safely. Addendum entered by Awilda Montiel R.N. 01/07/19 17:49: 17:45 pt returned from OR from I&D. Denies pain. VSS upon return. IVF @100cc/hr. BLE wrapped with priamry drsng, nicole wraps covering all wounds. Original Note: Pt to [facility] at 1605 for debridement. Given PO Tylenol with sips and IV Toradol prior for pain 09/23 to RLE. HR 85, Sats 95% on RA. BP 151/64. LUE DL MIDLINE with NS@100cc/hr. Dietitian to visit patient at change of shift. Pts main complaint- hungry and tired of waiting.
--- NOTE | 2019-01-07 16:36 | DIET.PN ---
Dietary Note Assessment: Dietary consult for Ms. Gomez r/t morbid obesity w/ Chronic Venous Stasis. She is admitted for RLE wound x 9-10 days. She reports following no dietary restrictions and provides a list of common osvaldo including biscuits w/ honey, ham, lopes, potatoes, cream of wheat w/ br sugar, hot chocolate, and corn. She does not like fish or vegetables. HT: 165.1cm WT: 127 kg Adj BW: 85kg BMI: 46.6 (obese class III) MNA: 13 (normal) Chris: 11 Nutrition Diagnosis: Overweight/Obesity r/t excessive energy intake, not ready for diet/lifestyle change, physical inactivity aeb BMI more than normative standard for age and sex (obese class III), over consumption of high-fat and/or energy-dense food/beverage, infrequent physical activity. Interventions: 1. Discussed nutrition therapy for weight loss. Provided tips for healthy cooking and meal preparation. 2. Provided meal plan for 2000 calorie diet. 3. Will add Wili (glutamine/arginine supplement) BID for wound healing support. Diet Order: NPO EER: 2550cal @ 30 dolly/kg AdjBW 2049 dolly (500cal deficit/day for weight loss) Pro: 110-127 g/day @ 1.3-1.5g/kg AdjBW Monitoring/Evaluations: Wt, Diet Order Status, Wili BID
--- NOTE | 2019-01-07 17:15 | SUR.OPER ---
PROCEDURE DONE ON PATIENT BED
--- NOTE | 2019-01-07 17:19 | PM.OP.1 ---
Operative Date/Time/Diagnoses Date of procedure: 01/07/19 Time of procedure: 17:19 Pre-op diagnosis: Venous stasis ulcer Post-op diagnosis: same Procedure & Clinicians Procedure: Excision of venous stasis ulcer right lower extremity Same procedure as scheduled: Yes Indications: 78-year-old female with lymphedema and venous stasis disease presents with a infected venous stasis ulcer. Surgeon: Shelton Valdez Click Yes if Unassisted: No Anesthesia Type: General Operative Notes Findings: Superficial necrosis circumferential right ankle Estimated Blood Loss (mL): 10 Procedure in detail: The patient was brought to the operating room and laid in her hospital bed. She was prepped in the sterile fashion. She was intubated with an endotracheal tube. Time-out was performed ensure the correct patient procedure necessary equipment within the operating room. Using curette the necrotic tissue was removed circumferentially around the right ankle down to bleeding viable tissue. Hemostasis was achieved. The wound was then prepared with sterile saline soaked gauze and Christos wrap. Patient emerged from anesthesia was extubated and transferred to postoperative care in stable condition. The sponge instrument count at the end operation was correct. Post-operative Condition: stable Disposition: ICU
[2019-01-08] VITALS (11 sets, daily range): BP systolic 126–141; BP diastolic 52–69; PULSE 83–107; RESP 18–20; TEMP 36.2–37.4; O2SAT 90–98
[2019-01-08] LABS: Acinetobacter baumannii Not Detected (Not Detect); Candida albicans Not Detected (Not Detect); Candida glabrata Not Detected (Not Detect); Candida krusei Not Detected (Not Detect); Candida parapsilosis Not Detected (Not Detect); Candida tropicalis Not Detected (Not Detect); E. coli Not Detected (Not Detect); Enterobacter cloacae complex Not Detected (Not Detect); Enterobacteriaceae species Not Detected (Not Detect); Enterococcus species Not Detected (Not Detect); Haemophilus influenzae Not Detected (Not Detect); Listeria monocytogenes Not Detected (Not Detect); Neisseria meningitidis Not Detected (Not Detect); Proteus species Not Detected (Not Detect); Pseudomonas aeruginosa Not Detected (Not Detect); Serratia marcescens Not Detected (Not Detect); Staphylococcus species Not Detected (Not Detect); Streptococcus agalactiae (Gr B Not Detected (Not Detect); Streptococcus pneumonia Not Detected (Not Detect); Streptococcus pyogenes (Gr A) Not Detected (Not Detect); Streptococcus species Not Detected (Not Detect)
[2019-01-08] MEDS: SODIUM CHLORIDE 0.9% 1,000 ML 100 ML IV ×3 (01:25→22:22)
[2019-01-08 05:13] LABS: Add Manual Diff / Slide Review NO; Basophils Absolute Auto 0 /uL (0-100); Basophils Percent Auto 0.6 % (0-2); Eosinophils Absolute Auto 700 /uL (0-450); Eosinophils Percent Auto 9.1 % (2-4); Hematocrit 37.8 % (36-46); Hemoglobin 12.3 g/dL (12.0-16.0); Lymphocytes Absolute Auto 700 /uL (1100-4500); Lymphocytes Percent Auto 8.9 % (25-40); Mean Corpuscular HGB Conc 32.6 % (30-36); Mean Corpuscular Hemoglobin 27.6 PG (26-34); Mean Corpuscular Volume 84.8 fL (80-100); Monocytes Absolute Auto 800 /uL (0-900); Monocytes Percent Auto 9.5 % (3-14); Neutrophils Absolute Auto 5800 /uL (1500-7000); Neutrophils Percent Auto 71.9 % (50-75); Platelet Count 257 X10^3/uL (150-400); Red Blood Cell Count 4.46 X10^6/uL (4.0-5.2); Red Cell Distribution Width 14.7 % (11.6-14.8)
[2019-01-08 05:23] LABS: BUN Creatinine Ratio 14.3 (6-22); Blood Urea Nitrogen 10 mg/dL (7-17); Calcium 7.5 mg/dL (8.4-10.2); Carbon Dioxide 27 mmol/L (22-32); Chloride 107 mmol/L (98-107); Estimated Glomerular Filt Rate > 60.0 mL/min (>60); Glucose 88 mg/dL (80-110); HEMOLYSIS < 15 (0-50); Magnesium 1.7 mg/dL (1.6-2.3); Phosphorous 2.6 mg/dL (2.8-4.1); Potassium 4.2 mmol/L (3.4-5.1); Sodium 139 mmol/L (137-145)
[2019-01-08] MEDS: MEROPENEM 1 GM/50 ML PIGGYBACK IV ×3 (05:45→20:43)
--- NOTE | 2019-01-08 07:09 | PC.NURSE ---
NOC Shift: Pt uneventful shift, VS off tele. Refusing position changes, does not want to sleep lying flat or on her side. Explained to pt the contraindications, pt still does not want to be moved. Was able see backside, skin as noted in assessment. Through shift repositioned up in bed, and replaced pillows under legs for elevation as ordered. Also denies pain and declines pain meds.
[2019-01-08] MEDS: LINEZOLID 600 MG/300 ML IV.SOLN IV (10:19)
[2019-01-08] MEDS: NYSTATIN POWDER 15GM 1 APPLIC TOP (10:20)
--- NOTE | 2019-01-08 13:24 | CM.DANOTE ---
Per MD, pt will require residential IV-Abx and wound care at d/c and recommending SNF. SW met bedside with pt and explained role and updated white board and pt confirms that she was recently at [facility] in October 2018 this year for similar medical needs and was able to d/c back home with set up. Pt states that she still lives at home with her 2 adult sons, one works multimedia designer and one is available occasionally for assist if needed but not consistent care. Pt states that HH arrived after she was discharged from SNF and they stated that they felt pt could manage her own wound care and discharged her from service and pt now regrets that she agreed with discharge from . SW discussed SNF recommendation and provided SNF Choice List and pt confirms that her preference is [facility] to stay in [place] and that she felt that she received good care at [facility] but had not liked her previous roommate at [facility]. SW called [facility] admissions with new referral and September states she will review and call back with decision. PASRR completed in anticipation of SNF. Plan: SW to follow for [facility] review for possible placement at d/c for IV-Abx and wound care along with strengthening. Mary Jane Rayo MSW
--- NOTE | 2019-01-08 13:56 | PC.NURSE ---
Day Shift Note Pt alert and oriented x3. Denies pain when at rest but reports increase in pain with any position/dressing changes. Declines pain medication during these periods. Refusing to turn from side to side to offload pressure to buttocks and back of thighs. Education provided concerning importance of turning and offloading to both heal and prevent skin breakdown. Acknowledged understanding but continues to decline. Skin to buttocks is intact, skin to back of thighs erythemic but blanchable, 3 open areas to right thigh and scattered abrasions to left. Cleansed and barrier cream applied. BERNARDINO wrap to LLE removed - skin cleansed and bleeding noted to 2 shallow open areas to posterior LE, allevyn dressings x2 applied and leg rewrapped with BERNARDINO wrap. Dressing removed to RLE, open areas to both medial and lateral ankle (worse to lateral) as well as to dorsal foot area. Cleansed with saline and wet to dry dressing applied; moistened saline gauze to wound bed, ABD pads, and kerlex. BERNARDINO wrap replaced over dressing. Palpable pulses to BLEs. Edema present 2-3+ pitting. BLEs elevated on pillows. Nystatin powder applied under abdominal fold and in chantal-area. Call light within reach, using appropriately to make needs known.
--- NOTE | 2019-01-08 14:14 | PM.PN.1 ---
Subjective Subjective Date Patient Seen: 01/08/19 Interval history: Tiffanie Gomez is a 78-year-old female with a past medical history significant for hypertension, bilateral lower extremity edema, and venous stasis dermatitis with recurrent venous stasis ulcerations and cellulitis who presented for acutely infected ulcerations in her right lower extremity with necrotic tissue. The patient is resting in bed comfortably. She reports pain in her right ankle that she rates a +7 out of 10 especially with the dressing change. She has had little to eat and has not had a BM for several days, therefore, a bowel regimen was implemented. She has been afebrile for approximately 36 hours. She has no other complaints and denies headache, cough, shortness of breath, chest pain, abdominal pain, nausea, vomiting, fever, chills, dysuria, diarrhea or constipation. She is voiding via fair catheter due to impaired mobility. Exam Vital Signs (past 8 hours): - 01/08/19 16:21 01/08/19 17:00 01/08/19 19:30 Temperature 99.3 F 97.3 F L Pulse Rate 99 H 96 H Respiratory Rate 19 18 Blood Pressure 141/60 H 131/69 Pulse Oximetry 94 98 90 L Oxygen Delivery Method Room Air Oxygen Flow Rate 0 Narrative Exam Narrative: General: Older morbidly obese female lying in bed and in no acute distress, appears chronically ill, well-developed, well-nourished, appropriately interactive. HEENT: Normocephalic, atraumatic. External ears without defect. Pupils equal, round, and reactive to light. Anicteric sclerae, moist conjunctivae, and no lid lag. Oropharynx free of erythema and cobble stoning with moist mucosa. Poor dentition. Neck: Supple with full range of motion. No jugular venous distension. No lymphadenopathy or thyromegaly. Cardiovascular: Regular rate and rhythm without murmurs, rubs, or gallops appreciated. Pulmonary: Clear to auscultation bilaterally without crackles, wheezes, or rhonchi. Normal respiratory effort with no use of accessory muscles. Abdomen: Soft, obese, bowel sounds present, nontender, nondistended. No hepatosplenomegaly or masses appreciated. Extremities: No clubbing or cyanosis. Moderate bilateral lower extremity edema with Christos wraps in place C/D/I. Surrounding cellulitis on right leg appears to be resolving. Skin: Normal temperature, turgor, and texture; no subcutaneous nodules appreciated. Neurological: Cranial nerves grossly intact. Psychiatric: Normal mood and affect. Alert and oriented to person, place, and time. Objective Labs Result Diagrams: 01/08/19 05:00 01/08/19 05:00 Labs: Laboratory Results - last 24 hr 01/07/19 01/08/19 01/08/19 18:15 05:00 05:00 WBC 8.0 RBC 4.46 Hgb 12.3 Hct 37.8 MCV 84.8 MCH 27.6 MCHC 32.6 RDW 14.7 Plt Count 257 Neut % (Auto) 71.9 Lymph % (Auto) 8.9 L [place] % (Auto) 9.5 Eos % (Auto) 9.1 H Baso % (Auto) 0.6 Neut # (Auto) 5800 Lymph # (Auto) 700 L [place] # (Auto) 800 Eos # (Auto) 700 H Baso # (Auto) 0 Sodium 139 Potassium 4.2 Chloride 107 Carbon Dioxide 27 BUN 10 Creatinine 0.70 Estimated GFR > 60.0 BUN/Creatinine Ratio 14.3 Glucose 88 Calcium 7.5 L Phosphorus 2.6 L Magnesium 1.7 A. baumannii (PCR) Not detected Bere albicans (PCR) Not detected C. glabrata (PCR) Not detected C. krusei (PCR) Not detected C. parapsilosis (PCR) Not detected C. tropicalis (PCR) Not detected Enterobacteriac sp PCR Not detected E. cloacae complex PCR Not detected Enterococcus sp PCR Not detected E. coli (PCR) Not detected H. influenzae (PCR) Not detected Klebsiella oxytoca PCR Not detected Klebsiella pneumoniae Not detected List. monocytogenes PCR Not detected N. meningitidis (PCR) Not detected Proteus species (PCR) Not detected Serratia marcescens PCR Not detected Staphylococcus sp PCR Not detected Staph aureus (PCR) Not detected mecA-Methicil Res Gene Not Reportable Streptococcus sp PCR Not detected Group A Strep (PCR) Not detected Strep agalactiae (PCR) Not detected Strep pneumoniae (PCR) Not detected P. aeruginosa (PCR) Not detected Rhett/B-Vanco Res Genes Not Reportable KPC-Carbap Res Gene PCR Not Reportable Assessment & Plan Assessment & Plan narrative: Tiffanie Gomez is a 78-year-old female with a past medical history significant for hypertension, bilateral lower extremity edema, and venous stasis dermatitis with recurrent venous stasis ulcerations and cellulitis who presented for acutely infected ulcerations in her right lower extremity with necrotic tissue. 1. Acute on chronic infected and necrotic right venous stasis leg ulcers with surrounding cellulitis, present on admission. Resolving. -Patient has progressive and worsening ulcers of distal right lower leg, bilateral ankle and dorsum of the foot. -Wounds were covered with Adaptic but were malodorous with drainage. -ESR 13 on admission. -No evidence of osteomyelitis on right lower extremity x-ray. -Wound cultures are preliminarily growing Proteus mirabilis. Blood culture preliminarily positive for gram-negative bacilli. -Consulted general surgery, Dr. Valdez who performed wound debridement. We appreciate his time and care of the patient. -Patient has previously had culture results including MSSA, Alcaligenes, Pseudomonas and Proteus and has many listed allergies including vancomycin, clavulanic acid, amoxicillin, nafcillin and Piperacillin. Continue meropenem 1 g every 8 hours as this antibiotic covers all the polymicrobial bacterial infection she has had in the past. Discontinued vancomycin as patient has never had MRSA grow in her wound cultures. 2. Chronic venous insufficiency of bilateral lower extremities, present on admission. Stable. -Patient with bilateral lower extremity edema that has been worsening over the last few days per patient report. -Continue home regimen of Lasix 80 mg daily. -Continue conservative measures and elevate lower extremities and apply leg wraps. 3. Morbid obesity, chronic, present on admission. Stable -BMI 47.3. -Patient is community dwelling and has severely impaired mobility minimal ambulation. -Consulted dietary and we appreciate their time and recommendations. -Ordered PT and OT evaluation and treatment, pending. Disposition: Patient likely to discharge to senior care facility for continued wound management and rehabilitation tomorrow.
[2019-01-08] MEDS: KETOROLAC 30 MG/ML VIAL IV (14:41)
[2019-01-08] MEDS: ACETAMINOPHEN 325 MG TABLET 975 MG PO ×3 (14:41→22:27)
--- NOTE | 2019-01-08 16:14 | PC.NURSE ---
1600- Patient report given to Elizabeth ESTEVEZ. Patient to transfer to room 228. Patient is stable at the time of transfer.
[2019-01-08] MEDS: ENOXAPARIN 40 MG/0.4 ML SYRINGE SUBCUT (20:43)
[2019-01-08] MEDS: HYDROCODONE/ACET 5/325 TABLET 1 TAB PO (20:52)
--- NOTE | 2019-01-08 23:03 | PC.NURSE ---
Tyra.ankle dressing changed at 2014. applied wet guaze and abd pad x2, wraped ankle with kerlix and nicole wrap around it.
[2019-01-08] MEDS: TRAMADOL 50 MG TABLET PO (23:11)
[2019-01-09 00:49] VITALS: O2SAT 95
[2019-01-09 04:00] VITALS: O2SAT 98
[2019-01-09] MEDS: MEROPENEM 1 GM/50 ML PIGGYBACK IV ×2 (04:52→13:19)
--- NOTE | 2019-01-09 04:58 | PC.NURSE ---
Shift note: Pt has refused to be turned in bed with complaints that the pain in her leg is too bad for her to turn. Pt has also been taking her nasal cannula off stating I can't breath with oxygen. Educated pt on the purpose and need for regular turns and the purpose and function of oxygen, pt acknowledges education and continues to decline both interventions. Pt is AxO and can make needs known, is a high fall risk d/t limited mobility and weakness, bed alarm on and functioning, call light in reach.
[2019-01-09 05:00] VITALS: BP 128/68; PULSE 89; RESP 18; TEMP 36.6; O2SAT 98
[2019-01-09] MEDS: ACETAMINOPHEN 325 MG TABLET 975 MG PO ×2 (05:59→13:20)
[2019-01-09 07:40] VITALS: O2SAT 94
[2019-01-09 07:53] LABS: Blood Urea Nitrogen 9 mg/dL (7-17); Calcium 7.2 mg/dL (8.4-10.2); Carbon Dioxide 25 mmol/L (22-32); Chloride 109 mmol/L (98-107); Estimated Glomerular Filt Rate > 60.0 mL/min (>60); Glucose 99 mg/dL (80-110); HEMOLYSIS < 15 (0-50); Magnesium 1.8 mg/dL (1.6-2.3); Potassium 4.1 mmol/L (3.4-5.1); Sodium 138 mmol/L (137-145)
[2019-01-09 07:55] LABS: Add Manual Diff / Slide Review NO; Basophils Absolute Auto 100 /uL (0-100); Basophils Percent Auto 0.7 % (0-2); Eosinophils Absolute Auto 700 /uL (0-450); Eosinophils Percent Auto 8.7 % (2-4); Hematocrit 37.6 % (36-46); Hemoglobin 12.2 g/dL (12.0-16.0); Lymphocytes Absolute Auto 700 /uL (1100-4500); Lymphocytes Percent Auto 9.5 % (25-40); Mean Corpuscular HGB Conc 32.5 % (30-36); Mean Corpuscular Hemoglobin 27.6 PG (26-34); Monocytes Absolute Auto 900 /uL (0-900); Neutrophils Absolute Auto 5500 /uL (1500-7000); Neutrophils Percent Auto 70.1 % (50-75); Platelet Count 248 X10^3/uL (150-400); Red Blood Cell Count 4.42 X10^6/uL (4.0-5.2); Red Cell Distribution Width 14.7 % (11.6-14.8); White Blood Cell Count 7.8 X10^3/uL (4.5-11.0)
[2019-01-09 08:00] VITALS: BP 104/63; PULSE 95; RESP 18; TEMP 37.1; O2SAT 92
[2019-01-09 08:14] LABS: Hemoglobin A1C% w Est Avg Glu 5.4 % (4.0-6.0)
[2019-01-09 08:30] LABS: Procalcitonin 0.05 ng/mL (<0.5)
[2019-01-09] MEDS: SODIUM CHLORIDE 0.9% 1,000 ML 100 ML IV (08:33)
--- NOTE | 2019-01-09 08:41 | P.DS_ITS ---
History of Present Illness History of Present Illness Date Patient Seen: 01/06/19 Chief complaint: Right lower extremity wound, sent from Dr Valdez Narrative: Written by Dc CHOE: Ms. Tiffanie Gomez is a 78-year-old female patient with a history significant chronic venous hypertension and bilateral lower extremity edema, venous stasis dermatitis and recurrent ulcerations and cellulitis. The patient ulcers on her right foot and ankle approximately 9 or 10 days ago. The patient was referred to the wound clinic by her PCP and was evaluated on 01/02/2019. At the wound clinic she was evaluated and referred to Dr. Valdez for wound debridement where she in today and subsequently referred to the ER. The patient has wounds on the medial and lateral aspects of her ankle dorsum of the foot and distal lower extremity. The wounds have malodorous brownish drainage. There is surrounding erythema, swelling with marked tenderness to touch. Patient has been being treated with cefuroxime mean 500 mg twice daily on an outpatient basis. The patient reports associated symptoms of chills which started last night but denies fevers, dizziness, nausea vomiting. The patient was last admitted for treatment of cellulitis on 10/23 2018. The patient denies headaches nasal congestion or sore throat, has no chest pain or palpitations, shortness of breath cough or wheeze. She denies abdominal pain nausea vomiting, diarrhea or constipation. She is able to ambulate with a walker around her home and uses a wheelchair in the community. Upon arrival to the ER the patient had a temperature of 98.9?, heart rate of 118, blood pressure 136/50, respirations of 22 saturating 92% on room air. And ankle x-ray was taken which identified extensive soft tissue swelling but found no bony lesions, low suspicion of osteomyelitis. On laboratory analysis she has a white count of 10.4, hemoglobin of 13.9 hematocrit of 42.6 and platelets 333 her electrolytes are within normal range with a BUN of 9 and creatinine is 0.7 and a nonfasting glucose of 110. Her coagulations are unremarkable. She has lactic acid that is negative for 0.9, procalcitonin of 0.05, a sed rate that is normal at 13 and elevated CRP of 4.6. A PICC line is inserted in the ER following failure of multiple attempts to establish peripheral access. Patient is admitted for cellulitis and wound infection failing outpatient treatment. Discharge Providers Provider Date of admission: 09/23/19 19:36 Discharge Date: 01/09/19 Primary care physician: Arya Beyer MD Consults: 01/06/19 20:06 Consult to Dietitian, Adult Routine Comment: Reason For Exam: morbid obesity, chronic venous stasis Consult to Discharge Planning Routine Comment: 01/06/19 22:45 Consult to Environmental Engineering Aide Routine Comment: concern r/t living situation, unkempt, poor hygien 01/08/19 14:52 Consult to Occupational Therapy Evaluate & Treat Comment: Physician Instructions: Evaluate and treat Consult to Physical Therapy Evaluate & Treat Comment: Physician Instructions: Evaluate and Treat Discharge provider: Zaida Miranda DO Summary Hospital Course Discharge Diagnosis: 1. Acute on chronic infected and necrotic right venous stasis leg ulcers with surrounding cellulitis, status post debridement, present on admission. Resolved. 2. Chronic venous insufficiency of bilateral lower extremities, present on admission. Stable. 3. Morbid obesity with deconditioning and debility, chronic, present on admission. Stable. Hospital Course: Tiffanie Gomez is a 78-year-old female with a past medical history significant for hypertension, bilateral lower extremity edema, and venous stasis dermatitis with recurrent venous stasis ulcerations and cellulitis who presented for acutely infected ulcerations in her right lower extremity with necrotic tissue. 1. Acute on chronic infected and necrotic right venous stasis leg ulcers with surrounding cellulitis, status post debridement, present on admission. Resolved. -Patient had progressive and worsening ulcers of distal right lower leg, bilateral ankle and dorsum of the foot. -Wounds were covered with Adaptic but were malodorous with drainage. -ESR 13 on admission. -No evidence of osteomyelitis on right lower extremity x-ray. -Consulted general surgery, Dr. Valdez who performed wound debridement. We appr eciate his time and care of the patient. -Patient has previously had culture results including MSSA, Alcaligenes, Pseudomonas and Proteus and has many listed allergies including vancomycin, clavulanic acid, amoxicillin, nafcillin and Piperacillin. Continued meropenem 1 g every 8 hours as this antibiotic covers all the polymicrobial bacterial infections she has had in the past and switched to cefuroxime 500 mg twice daily for 3 additional days to complete 7 day course as patient's wound culture grew Proteus mirabilis only. Discontinued vancomycin as patient has never had MRSA grow in her wound cultures. Blood culture positive for corneybacterium diptheriae which is considered a contaminate. 2. Chronic venous insufficiency of bilateral lower extremities, present on admission. Stable. -Patient with bilateral lower extremity edema that has been worsening over the last few days per patient report. -Continued home regimen of Lasix 80 mg daily. -Continued conservative measures and elevate lower extremities and apply leg wraps. 3. Morbid obesity with deconditioning and debility, chronic, present on admission. Stable -BMI 47.3. -Patient has severely impaired mobility with minimal ambulation and concerned that patient is unable to adequately care for herself, hygeine and wounds. -Consulted dietary and we appreciate their time and recommendations. -Continued PT and OT evaluation and treatment. Exam Vital Signs (past 8 hours): Fraction of Inspired Oxygen 26 Oxygen Delivery Method Room Air Oxygen Flow Rate 0 Narrative Exam Narrative: General: Older morbidly obese female lying in bed and in no acute distress, appears chronically ill, well-developed, well-nourished, appropriately interactive. HEENT: Normocephalic, atraumatic. External ears without defect. Pupils equal, round, and reactive to light. Anicteric sclerae, moist conjunctivae, and no lid lag. Oropharynx free of erythema and cobble stoning with moist mucosa. Poor dentition. Neck: Supple with full range of motion. No jugular venous distension. No lymphadenopathy or thyromegaly. Cardiovascular: Regular rate and rhythm without murmurs, rubs, or gallops appreciated. Pulmonary: Clear to auscultation bilaterally without crackles, wheezes, or rhonchi. Normal respiratory effort with no use of accessory muscles. Abdomen: Soft, obese, bowel sounds present, nontender, nondistended. No hepatosplenomegaly or masses appreciated. Extremities: No clubbing or cyanosis. Moderate bilateral lower extremity edema with Christos wraps in place C/D/I. Surrounding cellulitis on right leg appears resolved. Skin: Normal temperature, turgor, and texture; no subcutaneous nodules appreciated. Neurological: Cranial nerves grossly intact. Psychiatric: Normal mood and affect. Alert and oriented to person, place, and time. Objective Labs Result Diagrams: 01/09/19 07:22 01/09/19 07:22 Labs: Laboratory Results - last 24 hr 01/07/19 01/09/19 01/09/19 18:15 07:22 07:22 WBC 7.8 RBC 4.42 Hgb 12.2 Hct 37.6 MCV 85.0 MCH 27.6 MCHC 32.5 RDW 14.7 Plt Count 248 Neut % (Auto) 70.1 Lymph % (Auto) 9.5 L [place] % (Auto) 11.0 Eos % (Auto) 8.7 H Baso % (Auto) 0.7 Neut # (Auto) 5500 Lymph # (Auto) 700 L [place] # (Auto) 900 Eos # (Auto) 700 H Baso # (Auto) 100 Sodium Potassium Chloride Carbon Dioxide BUN Creatinine Estimated GFR BUN/Creatinine Ratio Glucose Hemoglobin A1c Calcium Magnesium Procalcitonin 0.05 A. baumannii (PCR) Not detected Bere albicans (PCR) Not detected C. glabrata (PCR) Not detected C. krusei (PCR) Not detected C. parapsilosis (PCR) Not detected C. tropicalis (PCR) Not detected Enterobacteriac sp PCR Not detected E. cloacae complex PCR Not detected Enterococcus sp PCR Not detected E. coli (PCR) Not detected H. influenzae (PCR) Not detected Klebsiella oxytoca PCR Not detected Klebsiella pneumoniae Not detected List. monocytogenes PCR Not detected N. meningitidis (PCR) Not detected Proteus species (PCR) Not detected Serratia marcescens PCR Not detected Staphylococcus sp PCR Not detected Staph aureus (PCR) Not detected Streptococcus sp PCR Not detected Group A Strep (PCR) Not detected Strep agalactiae (PCR) Not detected Strep pneumoniae (PCR) Not detected P. aeruginosa (PCR) Not detected 01/09/19 01/09/19 07:22 07:22 WBC RBC Hgb Hct MCV MCH MCHC RDW Plt Count Neut % (Auto) Lymph % (Auto) [place] % (Auto) Eos % (Auto) Baso % (Auto) Neut # (Auto) Lymph # (Auto) [place] # (Auto) Eos # (Auto) Baso # (Auto) Sodium 138 Potassium 4.1 Chloride 109 H Carbon Dioxide 25 BUN 9 Creatinine 0.60 Estimated GFR > 60.0 BUN/Creatinine Ratio 15.0 Glucose 99 Hemoglobin A1c 5.4 Calcium 7.2 L Magnesium 1.8 Procalcitonin A. baumannii (PCR) Bere albicans (PCR) C. glabrata (PCR) C. krusei (PCR) C. parapsilosis (PCR) C. tropicalis (PCR) Enterobacteriac sp PCR E. cloacae complex PCR Enterococcus sp PCR E. coli (PCR) H. influenzae (PCR) Klebsiella oxytoca PCR Klebsiella pneumoniae List. monocytogenes PCR N. meningitidis (PCR) Proteus species (PCR) Serratia marcescens PCR Staphylococcus sp PCR Staph aureus (PCR) Streptococcus sp PCR Group A Strep (PCR) Strep agalactiae (PCR) Strep pneumoniae (PCR) P. aeruginosa (PCR) Discharge Plan Discharge Plan Patient Disposition: SNF Under care of provider: Piercing Artist Discharge Med Rec/Prescriptions Prescriptions: New polyethylene glycol 3350 17 gram Powder In Packet 17 gm PO DAILY Qty: 1 RF: 0 tramadol 50 mg Tablet 50 mg PO QID PRN (Reason: Pain, Moderate (4-6)) Qty: 20 RF: 0 nystatin [Nystop] 100,000 unit/gram Powder 1 applic topical BID Qty: 15 RF: 0 docusate sodium [DOK] 100 mg Capsule 100 mg PO BID PRN (Reason: Constipation) Qty: 60 RF: 0 bacitracin 500 unit/gram ointment 1 applictn TOP Q12H 10 Days Qty: 1 RF: 0 Continued acetaminophen 650 MG tablet extended release 650 mg PO Q6HP PRN (Reason: Pain (Scale Score 1-3)) Qty: 0 RF: 0 furosemide [Lasix] 80 MG tablet 80 mg PO QDAY Qty: 30 RF: 11 alendronate 70 mg tablet 70 mg PO QWEEK RF: 0 cefuroxime axetil 500 mg tablet 500 mg PO BID Qty: 6 RF: 0 Follow up/Referrals: Arya Beyer MD [Primary Care Provider] - Discharge Health Status Brief summary of current health status: Tiffanie Gomez is a 78-year-old female with a past medical history significant for hypertension, bilateral lower extremity edema, and venous stasis dermatitis with recurrent venous stasis ulcerations and cellulitis who presented for acutely infected ulcerations in her right lower extremity with necrotic tissue now status post debridement and further need for wound care management. Her wound culture grew Proteus mirabilis sensitive to cephalosporins therefore complete course with cefuroxime 500 mg twice daily for 3 days. Multidrug resistant organism: MRSA Precautions: [place] and Contact Provider Discharge Instructions Diet: Carb-consistent/Diabetic, Low-fat, Low-sodium and Low-cholesterol Skin/Wound/Dressing Care Other wound treatment: continue wound care dressing changes as directed by general surgery [facility] Rehab type: Physical therapy and Occupational therapy Discharge Data Primary Care Provider: Arya Beyer Discharges patient from system. Discharge Date/Time: 01/09/19 14:45
[2019-01-09 10:00] VITALS: O2SAT 92
[2019-01-09] MEDS: DOCUSATE 100 MG CAPSULE PO (10:02)
[2019-01-09] MEDS: TRAMADOL 50 MG TABLET PO (10:02)
[2019-01-09] MEDS: ENOXAPARIN 40 MG/0.4 ML SYRINGE SUBCUT (10:03)
[2019-01-09] MEDS: POLYETHYLENE GLYCOL 3350 17 GM POWD.PACK PO (10:03)
--- NOTE | 2019-01-09 10:26 | PC.NURSE ---
Addendum entered by Sofie Donato R.N. 01/09/19 14:52: Update given to Sejal at [facility] regarding removal of FREDDY midline and urinary catheter per verbal order by Dr. Miranda at bedside. FREDDY midline removed per hospital policy and protocol, Gauze and tegaderm dressing placed. pt tolerated well. No bleeding noted. Urinary catheter removed without difficulty. Pt left unit via wheelchair at 1445 via [facility] transport with all belongings. Addendum entered by Sofie Donato R.N. 01/09/19 14:07: Report called to [facility] at 1359, spoke with Sejal. Who stated the [facility] staff will remove RLE dressing and perform dressing change. Therefore dressing change will not be done prior to discharge. Pt discharging with FREDDY midline and Urinary catheter. Original Note: Day Shift- Pt A&OX3, pt reports mild pain to right leg, it's kept at bay right now. Tramadol prn given prior to dressing change, scheduled with pt between [id number] and bed bath at that time also. Silke from [facility] present to see pt, brief update given regarding wounds and isolation. She is now speaking with pt in room at 1025.
--- NOTE | 2019-01-09 11:53 | PT.IPTN ---
Current Diagnoses Cellulitis of left lower limb (01/06/19) Localized edema (01/06/19) Surgery Performed Operation Date: 01/07/19 17:15 Actual Procedures p Lower extremity debridement(Right) - Shelton Valdez MD Physical Therapy Treatment Note M2 PT-IP Current Condition Start: 01/09/19 12:44 Freq: NEEDED Status: Active Protocol: Document 01/09/19 11:53 AB (Rec: 01/09/19 13:13 AB [id number]) Physical Therapy Current Condition Current Condition Evaluation Date 01/09/19 Treatment Diagnosis Excision of venous stasis ulcer RLE; difficulty in walking Onset Date 01/06/19 M3 PT-IP Subjective Start: 01/09/19 12:44 Freq: NEEDED Status: Active Protocol: Document 01/09/19 11:53 AB (Rec: 01/09/19 13:13 AB [id number]) Subjective Physical Therapy Visit Type Type Initial Evaluation Visit Start Time 11:53 Visit Stop Time 12:08 Total Visit Minutes 15 Number of ASBESTOS REMOVAL WORKER Visits 0 Physical Therapy Visit Comments Patient Comments pt requires motivation to participate Therapy Pain Assessment Pain When Pain Assessed At Rest Pain Present Pain Present Pain Reported Location bilater leg pain Intensity 8 Scale Used Numeric (1 - 10) Pain Management Techniques Re-positioning,Timing of Activity with Medications M4 PT-IP Mobility and Gait Start: 01/09/19 12:44 Freq: NEEDED Status: Active Protocol: Document 01/09/19 11:53 AB (Rec: 01/09/19 13:13 AB [id number]) PT-Bed Mobility Assessment Supine to Sit Supine to Sit Moderate Assistance,Head of Bed Elevated Scooting Scooting to Edge of Bed Standby Assistance PT-Transfer Assessment Sit to and From Stand Sit to and from Stand Minimal Assistance,Use of Upper Extremities Equipment Transfer Assistive Device Gait Belt,Front Wheeled Walker Orthotic/Prosthetic Devices or Brace: No Transfers Transfer Destination Chair Transfer Technique Stand Step Pivot Transfer Ability Level of Assist Minimal Assistance Comments Mobility Comments pt completed bed mobiltiy supine to sit mod A and cues with HOB elevated. required increase time to complete. pt was able to sit on EOB SBA and completed sit to stand min A and cues. transferred to chair stand step transfer using FWW min A and cues. (+) SOB. O2 sat 88% but increased up to 96% after deep breathing. positioned pt in chair. refused ambulation PT-Balance Assessment Sitting Balance and Reactions Static Sitting Balance Ability Good Dynamic Sitting Balance Ability Good Standing Balance and Reactions Static Standing Balance Ability Fair Dynamic Standing Balance Ability Fair Device Used FWW M5 PT-IP Objective Assessments Start: 01/09/19 12:44 Freq: NEEDED Status: Active Protocol: Document 01/09/19 11:53 AB (Rec: 01/09/19 13:13 AB [id number]) Orientation Orientation/Cognition Level of Alertness Alert Orientation Name,Age,Birthday,Month,Date, Year,Day of Week,Place, Situation Language Function Ability No Deficits Noted Safety Awareness Decreased Safety Awareness Gross Range of Motion Lower Extremity ROM Assessment Within Functional Limits Strength Lower Extremity Strength Assessment Bilaterally Impaired Comments Strength Comments RLE: 3+/5 LLE 4-/5 Coordination Assessment Gross Coordination Gross Coordination WNL Muscle Tone Muscle Tone WNL Yes M6 PT-IP Treatment Start: 01/09/19 12:44 Freq: NEEDED Status: Active Protocol: Document 01/09/19 11:53 AB (Rec: 01/09/19 13:13 AB [id number]) Physical Therapy Treatment Education Education Provided Safety M7 PT-IP Assessment and Plan Start: 01/09/19 12:44 Freq: NEEDED Status: Active Protocol: Document 01/09/19 11:53 AB (Rec: 01/09/19 13:13 AB [id number]) PT Summary Assessment and Plan Potential Rehabilitation Potential Good Status of Condition at Evaluation Stable Summary Impairments Pain,ROM,Strength,Balance, Coordination,Sensation,Tone, Cognition,Bed Mobility, Transfers,Gait,Activity Tolerance Assessment Summary Pt requiring min A with transfers using FWW and mod A with bed mobility. pt needs to be more independent to be able to go home and will need SNF rehab at [facility]. Goals Bed Mobility Goal Standby Assistance Transfer Goal Standby Assistance,Front Wheeled Walker Gait Goal Standby Assistance,Front Wheel Walker Gait Distance 100 Days to Meet Goals 5 Frequency of Treatment Frequency Of Treatment Once a Day Treatment Plan Physical Therapy Treatment Plan Bed Mobility Training,Transfer Training,Gait Training, Therapeutic Exercise,Balance Retraining,Discharge Planning, Neuromuscular Re-ed, Coordination Retraining,Manual Therapy Recommendations To Nursing Amount of Assist Needed 1 Person Assist Discharge Recommendations PT Discharge Recommendations SNF Rehab
--- NOTE | 2019-01-09 12:47 | DIET.PN ---
Dietary Progress Note Assessment: F/u before pt dc to [facility]. Pt doesn't like Wili, hasn't been drinking it as it interrupts her meal. Educated pt on Wili's purpose to help c wound healing and provide needed added PRO. Pt will maybe drink it if in smoothie form. Alternate of Glucerna once daily if [facility] doesn't have Wili since PRO needs are increased at this time. Pt was eating chicken noodle soup, cottage cheese for lunch c iced tea. HT: 165.1cm WT: 128.9 kg Adj BW: 85kg BMI: 46.6 (obese class III) MNA: 13 (normal) Chris: 11 Nutrition Diagnosis: Overweight/Obesity r/t excessive energy intake, not ready for diet/lifestyle change, physical inactivity aeb BMI more than normative standard for age and sex (obese class III), over consumption of high-fat and/or energy-dense food/beverage, infrequent physical activity. Diet Order: General EER: 2550cal @ 30 dolyl/kg AdjBW 2050 dolly (500cal deficit/day for weight loss) Pro: 110-127 g/day @ 1.3-1.5g/kg AdjBW Monitoring/Evaluations: Wt, Diet Order Status, Wili BID
--- NOTE | 2019-01-09 15:02 | CM.DPC ---
DCP Cont: Faxed signed med list and PASRR to Jessika @ [facility] at fax # [phone]. Fax confirmation scanned in. Informed Jessika the discharge summary would be sent later. No Lopez, [facility] HospitalWater Supply Technician
--- NOTE | 2019-01-09 15:39 | CM.DPNOTE ---
DC Note: DC order in place. This BORE MILL OPERATOR spoke w/September and Silke at [facility] and pt okay to DC to [facility] today, Dr Miranda made aware. [facility] No assisted in coordination, pt remains aware and agreeable to plan. P: DC to [facility] via w/c today, p/u scheduled for 1430, coordination done by No, Stationary Plant Operators. JW
--- NOTE | 2019-01-10 11:11 | CM.DPC ---
DCP Cont: Faxed discharge summary to September @ [facility] at fax # [phone]. Fax confirmation scanned in. No Lopez, [facility] GladwinProfessor Of Violin
== END 2019-01-09 14:45 | DRG 264 ==
LOC: ED 16:43 → AC 19:37 → ICU 21:14 → AC 01-08 16:23
PROVIDERS: Internal Medicine; Surgery; Admitting Provider Nurse Practitioner Adult Health; Emergency Provider Nurse Practitioner Family; PCP Internal Medicine; Visit Provider Nurse Practitioner Adult Health
PROC: 0JBN0ZZ Excision of Right Lower Leg Subcutaneous Tissue and Fascia, Open Approach (ICD-10-PCS; principal; 2019-01-07 17:15)
DX: I96 Gangrene, not elsewhere classified (principal); I87.311 Chronic venous hypertension (idiopathic) with ulcer of right lower extremity; L03.115 Cellulitis of right lower limb; L97.819 Non-pressure chronic ulcer of other part of right lower leg with unspecified severity; Z68.42 Body mass index [BMI] 45.0-49.9, adult; L97.319 Non-pressure chronic ulcer of right ankle with unspecified severity; E66.01 Morbid (severe) obesity due to excess calories; L97.519 Non-pressure chronic ulcer of other part of right foot with unspecified severity; I87.2 Venous insufficiency (chronic) (peripheral); I89.0 Lymphedema, not elsewhere classified
CPT/HCPCS: 36415; 36592; 73600; 80048; 80053; 83036; 83605; 83735; 83880; 84100; 84145; 85025; 85651; 86140; 87040; 87070; 87075; 87077; 87150; 87186; 87205; 87797; 94760; 97161; 99214; 99282; 99284; J1642; J1650; J1885; J2020; J2185; J2250; J2405; J2704; J3010

== ENCOUNTER → 2019-01-14 11:22 | Outpatient (CLI) | payer MEDICARE, OTHER, SELFPAY ==
[2019-01-06 22:36] VITALS: BMI 46.5
== END ==
PROVIDERS: PCP Internal Medicine; Visit Provider Family Medicine
DX: I87.2 Venous insufficiency (chronic) (peripheral) (principal); L97.811 Non-pressure chronic ulcer of other part of right lower leg limited to breakdown of skin; L97.821 Non-pressure chronic ulcer of other part of left lower leg limited to breakdown of skin; I89.0 Lymphedema, not elsewhere classified; Z91.19 Patient's noncompliance with other medical treatment and regimen; L03.116 Cellulitis of left lower limb; L03.115 Cellulitis of right lower limb; B96.4 Proteus (mirabilis) (morganii) as the cause of diseases classified elsewhere; E66.01 Morbid (severe) obesity due to excess calories
CPT/HCPCS: 29581; 99214

== ENCOUNTER → 2019-01-23 14:54 | Outpatient (CLI) | payer MEDICARE, OTHER, SELFPAY ==
[2019-01-06 22:36] VITALS: BMI 46.5
== END ==
PROVIDERS: PCP Internal Medicine; Visit Provider Family Medicine
DX: I87.2 Venous insufficiency (chronic) (peripheral) (principal); L97.811 Non-pressure chronic ulcer of other part of right lower leg limited to breakdown of skin; L97.821 Non-pressure chronic ulcer of other part of left lower leg limited to breakdown of skin; I89.0 Lymphedema, not elsewhere classified; Z91.19 Patient's noncompliance with other medical treatment and regimen
CPT/HCPCS: 29581; 99213

== ENCOUNTER → 2019-01-30 14:29 | Outpatient (CLI) | payer MEDICARE, OTHER, SELFPAY ==
[2019-01-06 22:36] VITALS: BMI 46.5
== END ==
PROVIDERS: PCP Internal Medicine; Visit Provider Family Medicine
DX: I87.2 Venous insufficiency (chronic) (peripheral) (principal); L97.813 Non-pressure chronic ulcer of other part of right lower leg with necrosis of muscle; L97.823 Non-pressure chronic ulcer of other part of left lower leg with necrosis of muscle; L97.821 Non-pressure chronic ulcer of other part of left lower leg limited to breakdown of skin; L97.828 Non-pressure chronic ulcer of other part of left lower leg with other specified severity; L97.819 Non-pressure chronic ulcer of other part of right lower leg with unspecified severity; L97.829 Non-pressure chronic ulcer of other part of left lower leg with unspecified severity; R60.0 Localized edema
CPT/HCPCS: 11042; 11043; 11045; 11046

== ENCOUNTER 2019-02-22 12:21 | Inpatient (IN) | payer MEDICARE, OTHER, SELFPAY ==
[2019-02-22] VITALS (11 sets, daily range): BP systolic 74–128; BP diastolic 39–76; PULSE 91–102; RESP 14–21; TEMP 36.1–36.7; O2SAT 93–100; BMI 45.5
--- NOTE | 2019-02-22 12:33 | ED.WEAKNESS ---
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 She says today she was walking with her walker when her legs gave out from under her. EMS was called for a lift assist however she seemed weak and confusion she was brought to the ED for further evaluation. She denies any shortness of breath cough abdominal pain. No painful or frequent urination. She also stopped taking her Lasix for a few days not sure why. She was admitted in December for cellulitis. She has a foul smell with very poor hygiene MD Complaint: generalized weakness Related Data Home Medications Medication Instructions Recorded Confirmed acetaminophen 650 mg PO Q6HP PRN #0 05/25/17 02/22/19 alendronate 70 mg PO QWEEK 10/24/18 02/22/19 Previous Rx's Medication Instructions Recorded furosemide [Lasix] 80 mg PO QDAY #30 tab 05/29/17 docusate sodium [DOK] 100 mg PO BID PRN #60 cap 01/09/19 nystatin [Nystop] 1 applic TOPICAL BID #15 gram 01/09/19 polyethylene glycol 3350 17 gm PO DAILY #1 pkg 01/09/19 tramadol 50 mg PO QID PRN #20 tab 01/09/19 Allergies Allergy/AdvReac Type Severity Reaction Status Date / Time amoxicillin [From Augmentin] Allergy Severe rash, Verified 02/22/19 12:31 flushing, nausea,vomiting clavulanic acid Allergy Severe rash, Verified 02/22/19 12:31 [From Augmentin] flushing, nausea,vomiting vancomycin [VANCOMYCIN] Allergy Severe URSULA Verified 02/22/19 12:31 SYNDROME, CHILLS/SHAKING, TACHYCARDIA, HYPERTENSION codeine Allergy Intermediate hives, Verified 02/22/19 12:31 vomiting fluconazole Allergy Intermediate hives Verified 02/22/19 12:31 nafcillin Allergy Intermediate rash Verified 02/22/19 12:31 oxycodone Allergy Intermediate rash, Verified 02/22/19 12:31 MENTAL CHANGES piperacillin Allergy Intermediate rash Verified 02/22/19 12:31 fish oil Allergy Unknown Verified 02/22/19 12:31 morphine AdvReac Unknown PASS OUT, Verified 02/22/19 12:31 RACING HEART DIALUDID AdvReac Unknown MENTAL Uncoded 01/06/19 16:11 STATUS CHANGES Review of Systems Review of Systems ROS Unobtainable: All systems reviewed & are unremarkable except as noted in HPI and below Constitutional Constitutional: Denies chills, Denies fever(s), Denies lethargy and Reports weakness Eyes Eyes: Denies change in vision, Denies eye discharge, Denies irritation and Denies loss of vision Cardiovascular Cardiovascular: Denies chest pain, Denies irregular heart rhythm, Denies lightheadedness, Denies palpitations, Denies dyspnea, Denies dyspnea on exertion and Denies orthopnea Respiratory Respiratory: Denies cough, Denies dyspnea, Denies dyspnea on exertion and Denies wheezing Gastrointestinal Gastrointestinal: Denies abdominal pain, Denies change in bowel habits, Denies diarrhea, Denies nausea and Denies vomiting Genitourinary Genitourinary: Denies hematuria, Denies flank pain, Denies urinary incontinence and Denies urinary urgency Musculoskeletal Musculoskeletal: Denies back pain, Denies muscle weakness, Denies numbness and Denies tingling Integumentary/Breasts Skin/Breast: Reports as per HPI Neurologic Neurologic: Denies loss of vision, Denies numbness, Denies tingling and Reports weakness Endocrine Endocrine: Denies palpitations Allergic/Immunologic Allergic/Immunologic: Denies wheezing Patient History Medical History Cellulitis (Inactive) Chronic venous hypertension (idiopathic) with ulcer and inflammation of left lower extremity (Inactive) Chronic venous hypertension (idiopathic) with ulcer and inflammation of right lower extremity (Inactive) Lymphedema of both lower extremities (Inactive) Morbid obesity (Acute) Stasis dermatitis (Acute) Wound of lower extremity (Acute) Surgical History H/O umbilical hernia repair (Acute) Family History Father Cancer Mother Cancer Social History household members: children Smoking Status: Never smoker alcohol intake: never alcohol intake frequency: 0-2 drinks per day Substance Use Type: does not use Exam Initial Vital Signs Initial Vital Signs: Vital Signs Pulse Rate 102 H 02/22/19 12:27 Respiratory Rate 19 02/22/19 12:27 Blood Pressure 119/65 02/22/19 12:27 Pulse Oximetry 97 02/22/19 12:27 GENERAL: Alert elderly female chronically ill poor hygiene HEENT: Head atraumatic,EOMI, pupils reactive, face symmetric, moist mucous membranes CARDIOVASCULAR: Regular rate and rhythm without murmurs, rubs or gallops. RESPIRATORY: Breath sounds equal bilaterally, no wheezes rales or rhonchi. ABDOMEN: Soft, overweight nontender EXTREMITIES: Normal range of motion, no clubbing or edema. Neurovascularly intact : depends completely soaked through. She says no one has changed it is since the day before yesterday NEUROLOGICAL: Alert and oriented, confused able to at answer a few questions and follow some commands. SKIN: Chronic wounds bilaterally lower extremities no significant erythema Significant erythema on pannus. Scores GCS Kila coma scale eye opening: Spontaneous Obed coma scale verbal response: Confused Kila coma scale motor response: Obey commands Obed coma scale total score: 14 Course Orders Ordered: ED Orders 02/22/19 12:38 Partial Thromboplastin Time Stat Prothrombin Time INR Stat 02/22/19 12:39 XR chest 1V Stat 02/22/19 13:41 EKG-12 Lead Stat 02/22/19 14:33 B Type Natriuretic Peptide Stat Blood Culture Stat Comprehensive Metabolic Panel Stat Lactate (Lactic Acid) Stat Procalcitonin Stat Troponin & CK Cardiac Panel Stat 02/22/19 14:35 Complete Blood Count AUTO DIFF Stat 02/22/19 14:52 Urine Microscopic Stat 02/22/19 15:33 Consult to PROFESSOR OF BUSINESS ADMINISTRATION - Public Employment Mediator Stat 02/22/19 16:34 Consult After Hours PICC Line RN Stat Sodium Chloride (Normal Saline 0.9%) 1,000 mls @ 200 mls/hr IV CONT MIKEY Last Admin: 02/22/19 15:54 Dose: Not Given Documented by: MECHELLE Sodium Chloride (Normal Saline 0.9%) 1,710 mls @ 570 mls/hr 30 ml/kg infuse over 3 hr (1710 ml) IV NOW ONE Stop: 02/22/19 18:51 Last Admin: 02/22/19 16:19 Dose: 570 mls/hr Documented by: MECHELLE Discontinued Medications Sodium Chloride (Normal Saline 0.9%) 1,000 mls @ 1,000 mls/hr IV BOLUS ONE Stop: 02/22/19 14:38 Last Infusion: 02/22/19 15:54 Dose: 0 mls/hr Documented by: Infusion: 02/22/19 15:30 Dose: 1,000 mls/hr Documented by: Infusion: 02/22/19 14:30 Dose: 0 mls/hr Documented by: Admin: 02/22/19 13:41 Dose: 1,000 mls/hr Documented by: MECHELLE Cefepime HCl 2 gm/ Sodium (Chloride) 100 mls @ 200 mls/hr IV NOW ONE Stop: 02/22/19 15:12 Last Infusion: 02/22/19 15:53 Dose: 0 mls/hr Documented by: Admin: 02/22/19 15:31 Dose: 200 mls/hr Documented by: MECHELLE Meropenem (Merrem) 1 gm in 50 mls @ 100 mls/hr IV NOW ONE Stop: 02/22/19 17:14 Vital Signs Vital signs: Vital Signs - 8 hr 02/22/19 12:27 02/22/19 12:48 02/22/19 13:33 Temperature 96.9 F L Pulse Rate 102 H 102 H 99 H Respiratory Rate 19 19 17 Blood Pressure 119/65 119/65 Blood Pressure [Left Arm] 74/39 L Pulse Oximetry 97 97 98 02/22/19 14:44 02/22/19 15:20 02/22/19 15:21 Temperature 96.9 F L Pulse Rate 102 H 102 H 95 H Respiratory Rate 21 21 14 Blood Pressure 119/65 Blood Pressure [Left Arm] 108/49 L 95/66 Pulse Oximetry 100 100 02/22/19 16:18 Temperature Pulse Rate 95 H Respiratory Rate 16 Blood Pressure Blood Pressure [Left Arm] 98/40 L Pulse Oximetry MDM - Weakness Lab Data Attestation: I reviewed the patient's lab results. Result diagrams: 02/22/19 14:35 02/22/19 14:33 Labs: Lab Results 02/22/19 02/22/19 02/22/19 Range/Units 14:33 14:33 14:33 WBC (4.5-11.0) X10^3/uL RBC (4.0-5.2) X10^6/uL Hgb (12.0-16.0) g/dL Hct (36-46) % MCV (80-100) fL MCH (26-34) PG MCHC (30-36) % RDW (11.6-14.8) % Plt Count (150-400) X10^3/uL Neut % (Auto) (50-75) % Lymph % (Auto) (25-40) % Roseau % (Auto) (3-14) % Eos % (Auto) (2-4) % Baso % (Auto) (0-2) % Neut # (Auto) (1385-6518) /uL Lymph # (Auto) (6959-0066) /uL Roseau # (Auto) (0-900) /uL Eos # (Auto) (0-450) /uL Baso # (Auto) (0-100) /uL Sodium 135 L (137-145) mmol/L Potassium 5.2 H (3.4-5.1) mmol/L Chloride 98 (98-107) mmol/L Carbon Dioxide 22 (22-32) mmol/L BUN 94 H (7-17) mg/dL Creatinine 2.70 H (0.52-1.04) mg/dL Estimated GFR 17.1 L (>60) mL/min BUN/Creatinine Ratio 34.8 H (6-22) Glucose 98 (80-110) mg/dL Lactate 2.0 (0.7-2.1) mmol/L Calcium 8.8 (8.4-10.2) mg/dL Total Bilirubin 0.6 (0.2-1.3) mg/dL AST 29 (14-36) IU/L ALT 12 (<35) IU/L Alkaline Phosphatase 217 H (38-126) U/L B-Natriuretic Peptide < 100 (<100) Total Protein 6.8 (6.3-8.2) g/dL Albumin 3.3 L (3.5-5.0) g/dL Globulin 3.5 (1.7-4.1) g/dL Albumin/Globulin Ratio 0.9 L (1.0-2.8) Urine RBC (0-5/HPF) Urine WBC (0-5/HPF) Ur Squamous Epith Cells (0-5/HPF) Amorphous Sediment Urine Bacteria (None) Ur Culture Indicated? 02/22/19 02/22/19 Range/Units 14:35 14:52 WBC 19.1 H (4.5-11.0) X10^3/uL RBC 5.65 H (4.0-5.2) X10^6/uL Hgb 14.6 (12.0-16.0) g/dL Hct 45.9 (36-46) % MCV 81.2 (80-100) fL MCH 25.9 L (26-34) PG MCHC 31.9 (30-36) % RDW 15.7 H (11.6-14.8) % Plt Count 451 H (150-400) X10^3/uL Neut % (Auto) 91.9 H (50-75) % Lymph % (Auto) 2.3 L (25-40) % Roseau % (Auto) 5.5 (3-14) % Eos % (Auto) 0.2 L (2-4) % Baso % (Auto) 0.1 (0-2) % Neut # (Auto) 55688 H (2999-8010) /uL Lymph # (Auto) 400 L (6282-9552) /uL Roseau # (Auto) 1000 H (0-900) /uL Eos # (Auto) 0 (0-450) /uL Baso # (Auto) 0 (0-100) /uL Sodium (137-145) mmol/L Potassium (3.4-5.1) mmol/L Chloride (98-107) mmol/L Carbon Dioxide (22-32) mmol/L BUN (7-17) mg/dL Creatinine (0.52-1.04) mg/dL Estimated GFR (>60) mL/min BUN/Creatinine Ratio (6-22) Glucose (80-110) mg/dL Lactate (0.7-2.1) mmol/L Calcium (8.4-10.2) mg/dL Total Bilirubin (0.2-1.3) mg/dL AST (14-36) IU/L ALT (<35) IU/L Alkaline Phosphatase (38-126) U/L B-Natriuretic Peptide (<100) Total Protein (6.3-8.2) g/dL Albumin (3.5-5.0) g/dL Globulin (1.7-4.1) g/dL Albumin/Globulin Ratio (1.0-2.8) Urine RBC None seen (0-5/HPF) Urine WBC 0-1/hpf (0-5/HPF) Ur Squamous Epith Cells 1-5 /hpf D (0-5/HPF) Amorphous Sediment 2+ Urine Bacteria None seen (None) Ur Culture Indicated? Cult not indicated Urine Dip Bedside Urine Glucose Negative Bedside Urine Bilirubin + 1 Bedside Urine Ketone +/- 5 Urine Specific Durant 1.025 Bedside Urine Occult Blood - Negative Bedside Urine pH 5.5 Bedside Urine Protein +/- 15 Bedside Urine Urobilinogen +/- 1mg Bedside Urine Nitrite - Negative Bedside Urine Leukocytes - Negative Esterase MDM Narrative Medical decision making narrative: The patient is extremely hard IV start multiple nurses have tried I tried with ultrasound myself. As we were able to get 1 IV fluids started. She was a lab draw. PICC team has been called in. Patient's blood pressure continues to decreased to below 100. Sepsis fluids have been ordered. She is allergic to many medications she does take cephalosporin or has taken that in the past will start her on cefepime she has previously grown Pseudomonas. A peripheral IV was started she is given IV fluids for hypotension. Unknown lactate, but she does have leukocytosis of 19 and in decreased creatinine of 2.7, her baseline is less than 1. This did to call daughter and son. Son does not have a voice mail that is set up I left a message for the daughter. No return. PICC has been placed. Her urine is clear along with her chest x-ray. At this time I believe for source of infection to be cellulitis in her pannus. Dr. clark has been updated patient's symptoms test results agrees with ICU admission. Request meropenem for antibiotic. Cefepime has already been given. Discharge Plan Departure Admit Date/Time: 02/22/19 16:37 Admit Provider: Zaida Miranda
--- NOTE | 2019-02-22 12:39 | DI.RAD.S_ITS ---
PROCEDURE: XR CHEST 1V INDICATIONS: weakness TECHNIQUE: One view of the chest was acquired. COMPARISON: [facility], XR CHEST 1V, 10/23/2018, 19:52. [facility], CHEST 1 VIEW, 05/25/2017, 12:49. [facility], , CHEST 1 VIEW, 08/23/2016, 17:19. [facility], CHEST 1 VIEW, 11/29/2014, 19:48. FINDINGS: Surgical changes and devices: None. Lungs and pleura: An incomplete inspiratory result is noted, causing a crowded appearance to the lung markings. No focal infiltrates are seen. No pneumothorax or significant pleural effusions are seen. Mediastinum: The cardiac contours are within normal limits. The aorta demonstrates calcification and tortuosity. Bones and chest wall: Age-appropriate bony degenerative changes are seen. No suspicious bony lesions. Overlying soft tissues appear unremarkable. IMPRESSION: Limited portable chest examination, without a significant cardiopulmonary abnormality identified. A Dictated by: Henry Bustos M.D. on 02/22/2019 at 11:58 Approved by: Henry Bustos M.D. on 02/22/2019 at 11:59
--- NOTE | 2019-02-22 13:23 | PC.NURSE ---
Pt arrives via EMS. Obese with chronic wounds on legs which are dressed from wound clinic. Foul odor. report she is usually ambulatory. today feeling increasingly weak and unable to ambulate. lives with her sons. AAOx3, drowsy yet alert to verbal and pain, NSR 90s, dependent edema in LE with wounds, lungs clear in upper lobes unable to assess lower lobes. poor distal perfusion, hands cold and cap refill >2 sec, wrapped in warm blankets. afebrile. 20G FREDDY, hard stick and unable to obtain labs. lab contacted for blood draw. Warmed NS infusing. BP 86/29, repeated BP 74/39. MD aware. RT in for EKG. 98% on 2L.
[2019-02-22] MEDS: SODIUM CHLORIDE 0.9% 1,000 ML 1000 ML IV (13:41)
[2019-02-22 14:52] LABS: Add Manual Diff / Slide Review NO; Basophils Absolute Auto 0 /uL (0-100); Basophils Percent Auto 0.1 % (0-2); Eosinophils Absolute Auto 0 /uL (0-450); Eosinophils Percent Auto 0.2 % (2-4); Hematocrit 45.9 % (36-46); Hemoglobin 14.6 g/dL (12.0-16.0); Lymphocytes Absolute Auto 400 /uL (1100-4500); Lymphocytes Percent Auto 2.3 % (25-40); Mean Corpuscular HGB Conc 31.9 % (30-36); Mean Corpuscular Hemoglobin 25.9 PG (26-34); Mean Corpuscular Volume 81.2 fL (80-100); Monocytes Absolute Auto 1000 /uL (0-900); Monocytes Percent Auto 5.5 % (3-14); Neutrophils Absolute Auto 17500 /uL (1500-7000); Neutrophils Percent Auto 91.9 % (50-75); Platelet Count 451 X10^3/uL (150-400); Red Blood Cell Count 5.65 X10^6/uL (4.0-5.2); Red Cell Distribution Width 15.7 % (11.6-14.8); White Blood Cell Count 19.1 X10^3/uL (4.5-11.0)
--- NOTE | 2019-02-22 14:58 | PC.NURSE ---
Addendum entered by Tisha Jimenez R.N. 02/22/19 15:09: Ammended to add that barrier cream was applied to excoriated sacral areas and soft sheet placed under pannus for moisture and shearing protection. Original Note: Pt with about 400mL infused. BP improvement to 101/46. HR 90's NSR. Multiple attempts by Dr Giraldo for US guided IV access without success. Call placed to PICC team. Verbal order per MD to arterial stick patient for labs. Arterial stick successful in L wrist. pressure dressing applied and labs including BC x1 and lactate sent. Pt prepped for fair catheter insertion. Pt noted to have extensive skin excoriation under pannus with multiple dime size open sores. Excoriation extends to upper thighs and around to hips. Pt in soiled diaper which she states was changed 1-2 days ago. When asked who takes care of her at home she states Me, myself, and I and that her sons are always at work. Call to be placed to APS. Pt has multiple sacral ulcers on bilateral buttocks and unblanchable erythema extending from sacrum to lower back. 16 F fair inserted without complication and urine dark yellow and cloudy. Urine sent to lab. Awaiting lab results and PICC team arrival. Pt appears in NAD at this time. BP improving and IV patent.
[2019-02-22 15:03] LABS: Alanine Aminotransferase 12 IU/L (<35); Albumin 3.3 g/dL (3.5-5.0); Albumin Globulin Ratio 0.9 (1.0-2.8); Alkaline Phosphatase 217 U/L (38-126); Aspartate Aminotransferase 29 IU/L (14-36); BUN Creatinine Ratio 34.8 (6-22); Bilirubin Total 0.6 mg/dL (0.2-1.3); Blood Urea Nitrogen 94 mg/dL (7-17); Calcium 8.8 mg/dL (8.4-10.2); Carbon Dioxide 22 mmol/L (22-32); Chloride 98 mmol/L (98-107); Estimated Glomerular Filt Rate 17.1 mL/min (>60); Globulin 3.5 g/dL (1.7-4.1); Glucose 98 mg/dL (80-110); HEMOLYSIS < 15 (0-50); Potassium 5.2 mmol/L (3.4-5.1); Sodium 135 mmol/L (137-145); Total Protein 6.8 g/dL (6.3-8.2)
[2019-02-22 15:13] LABS: B Type Natriuretic Peptide < 100 (<100)
[2019-02-22 15:15] LABS: Bacteria Urine None Seen
[2019-02-22] MEDS: CEFEPIME 2 GM in SODIUM CHLORIDE 0.9% 100 ML 200 ML IV (15:31)
[2019-02-22 15:52] LABS: Amorphous Sediment Urine 2+; Culture Indicated Urine Cult Not Indicated; RBC Urine None Seen (0-5/HPF); Squamous Epithelial Cell Urine 1-5 /HPF (0-5/HPF); WBC Urine 0-1/HPF (0-5/HPF)
--- NOTE | 2019-02-22 16:15 | PC.NURSE ---
APS form completed online. ABX infused. bolus complete and 2nd liter of NS infusing per MAR. appears in NAD. ETA of PICC team 20 min.
[2019-02-22] MEDS: SODIUM CHLORIDE 0.9% 1,710 ML 570 ML IV (16:19)
--- NOTE | 2019-02-22 16:42 | PC.NURSE ---
PICC RN at bedside to place PICC. aware. Verbal and written consent obtained.
--- NOTE | 2019-02-22 17:14 | DI.RAD.S_ITS ---
PROCEDURE: XR CHEST FOR PICC 1V INDICATIONS: PICC placement COMPARISON: [facility], [facility], XR CHEST 1V, 02/22/2019, 12:45. [facility], [facility], XR CHEST 1V, 10/23/2018, 19:52. [facility], [facility], CHEST 1 VIEW, 05/25/2017, 12:49. FINDINGS: PICC was placed by the intravenous therapy team from the right side. Fluoroscopic spot film demonstrates the tip of PICC projecting overlying the inferior aspect of the superior vena cava. IMPRESSION: Tip of PICC projects overlying the inferior aspect of the superior vena cava. Dictated by: Henry Bustos M.D. on 02/22/2019 at 16:30 Approved by: Henry Bustos M.D. on 02/22/2019 at 16:31
--- NOTE | 2019-02-22 17:20 | PC.NURSE ---
PICC placed in KONG. XR obtained to confirm placement. Report called to [facility].
--- NOTE | 2019-02-22 17:46 | PC.NURSE ---
2nd set cultures drawn via PICC. Adequate blood return. awaiting read of CXR placement before infusing Meropenem 1G.
[2019-02-22] MEDS: MEROPENEM 1 GM/50 ML PIGGYBACK IV (18:32)
[2019-02-22 18:46] LABS: INR 1.2 (0.9-1.3); Prothrombin Time 13.7 SECONDS (10.1-12.7)
[2019-02-22 18:49] LABS: PTT Partial Thromboplastin Tim 30 SECONDS (26.4-36.2)
[2019-02-22 18:57] LABS: Creatine Kinase 75 U/L (30-135)
[2019-02-22 19:10] LABS: Troponin I < 0.012 ng/mL (0.01-0.034)
[2019-02-22 19:13] LABS: Procalcitonin 0.41 ng/mL (<0.5)
[2019-02-22 20:31] LABS: Magnesium 2.8 mg/dL (1.6-2.3)
[2019-02-22] MEDS: SODIUM CHLORIDE 0.9% 1,000 ML 150 ML IV (21:35)
[2019-02-22] MEDS: HEPARIN 5,000 UNIT/ML VIAL 5000 UNIT SUBCUT (21:35)
[2019-02-22] MEDS: DOCUSATE 100 MG CAPSULE PO (21:35)
[2019-02-22] MEDS: SILVER SULFADIAZINE 1% CREAM 25 GM 1 APPLIC TOP (21:36)
--- NOTE | 2019-02-22 22:42 | PC.ADMIT ---
[id number] Admission Note: The patient,Tiffanie Gomez,78 y/o, was given written information regarding hospital policies, unit procedures and contact persons. Patient's smoking status: Never smoker. Vital Signs - 8 hr 02/22/19 14:44 02/22/19 15:20 02/22/19 15:21 Temperature 96.9 F L Pulse Rate 102 H 102 H 95 H Respiratory Rate 21 21 14 Blood Pressure 119/65 Blood Pressure [Left Arm] 108/49 L 95/66 Pulse Oximetry 100 100 02/22/19 16:18 02/22/19 17:15 02/22/19 18:10 Temperature 98.1 F Pulse Rate 95 H 91 H 92 H Respiratory Rate 16 18 18 Blood Pressure 128/69 Blood Pressure [Left Arm] 98/40 L 108/60 Pulse Oximetry 98 02/22/19 21:09 Temperature 97.6 F Pulse Rate 93 H Respiratory Rate 16 Blood Pressure 119/69 Blood Pressure [Left Arm] Pulse Oximetry 93 Patient over from ED at 1810, drowsy but wakes easily. 4 person assist with slider board. Patient moans with movement. Patient able to answer questions appropriately.
--- NOTE | 2019-02-22 22:44 | PC.NURSE ---
Patient with many stasis ulcers on bilat legs, two small pressure ulcers on lf side of bottom, and very red weeping through out lower abd panis area. Order for nystatin powder but not availible in night pharmacy. Drsg removed form bilat legs to view for doctor and this RN. New order for apply drsg, silver sulfadiazine cream applied to stasis ulcers, foam drsg to cover wounds and then wrapped with nicole bandage per doctor order. Patient tolerated drsg change well.
--- NOTE | 2019-02-22 22:45 | P.HP_ITS ---
History of Present Illness History of Present Illness Date Patient Seen: 02/22/19 Time Patient Seen: 19:45 Chief complaint: Pain/weakness Narrative: Ms. Tiffanie Gomez is a 78-year-old female patient with a history significant chronic venous hypertension and bilateral lower extremity edema, venous stasis dermatitis and recurrent ulcerations and cellulitis who presents to the emergency department via EMS following a fall today while ambulating with her walker stating her legs gave out. Upon arrival of medics patient was found o have general weakness and altered mental status. Patient continues to have chronic bilateral lower extremity edema with wounds that are now clean and appear healing without discharge following her recent admission for treatment of cellulitis and wound debridement on 01/06/2019. Today the patient has rash erythema and warmth in her pannus fold with an open wound. Patient states she was in good health yesterday. The patient denies headaches or dizziness, nasal congestion or sore throat, has no chest pain or palpitations, shortness of breath cough or wheeze. She denies abdominal pain nausea vomiting, diarrhea or constipation. She is able to ambulate with a walker around her home and uses a wheelchair in the community. Upon arrival to the ER the patient was found to be afebrile with temperature 96.9?, in sinus tachycardia at 102, blood pressure 119/65, respirations 19 saturating 97% on room air. Upon arrival the patient was found to be altered from baseline. Chest x-ray is obtained finding no acute cardiopulmonary pathology. On laboratory analysis the patient has leukocytosis with white count of 19.1, hemoglobin of 14.6 and hematocrit 45.9 with platelets of 451. Neutrophils are elevated 91.9%. On chemistries she has a slightly elevated potassium at 5.2 and a BUN of 94 with a creatinine of 2.7 (see baseline creatinine 0.7). Her magnesium is 2.8. She has a lactic acid of 1.0 and procalcitonin 0.41. Her LFTs are within normal limits except for an elevated alkaline phosphatase at 217. Her PT is 13.7 with a PTT of 30 and an INR of 1.2. Total CK is 75 and troponin is less than 0.012. Screening urinalysis was obtained in the emergency department which appeared negative for infection. The ER was unable to establish IV access and a PICC line was inserted. The patient is admitted to the medicine service with sepsis and panniculitis Patient History Medical History Cellulitis (Inactive) Chronic venous hypertension (idiopathic) with ulcer and inflammation of left lower extremity (Inactive) Chronic venous hypertension (idiopathic) with ulcer and inflammation of right lower extremity (Inactive) Lymphedema of both lower extremities (Inactive) Morbid obesity (Acute) Stasis dermatitis (Acute) Wound of lower extremity (Acute) Surgical History H/O umbilical hernia repair (Acute) Family & Social History Family History Father Cancer Mother Cancer Social History: household members children Prior Living Arrangements House Safety & Behavioral: Feels Safe in Current Yes Environment Been Physically Hurt or No Threatened By a Person Suicidal Ideation Description None Suicide Plan Description No Plan Tobacco & Substance use: Smoking Status Never smoker alcohol intake never alcohol intake frequency 0-2 drinks per day Substance Use Type does not use Comment: The patient is and lives with her son in a single family home. The patient is minimally ambulatory using a walker at home and a wheelchair in the community. The patient's parents are both and she has no siblings. Smoking: The patient denies ever smoking. Alcohol: The patient denies alcohol consumption. Substance use. The patient denies recreational pharmaceuticals, herbal or cannabis use. Advanced directives: Patient is alert but confused and his previously stated wishes to be FULL CODE. She has designated her daughter Nasima to be her surrogate decision maker. Meds Home Medications and Allergies Home Medications Medication Instructions Recorded Confirmed Type acetaminophen 650 mg PO Q6HP PRN #0 05/25/17 02/22/19 History furosemide [Lasix] 80 mg PO QDAY #30 tab 05/29/17 02/22/19 Rx alendronate 70 mg PO QWEEK 10/24/18 02/22/19 History docusate sodium [DOK] 100 mg PO BID PRN #60 cap 01/09/19 02/22/19 Rx nystatin [Nystop] 1 applic TOPICAL BID #15 gram 01/09/19 02/22/19 Rx polyethylene glycol 3350 17 gm PO DAILY #1 pkg 01/09/19 02/22/19 Rx tramadol 50 mg PO QID PRN #20 tab 01/09/19 02/22/19 Rx Allergies Allergy/AdvReac Type Severity Reaction Status Date / Time amoxicillin [From Augmentin] Allergy Severe rash, Verified 02/22/19 12:31 flushing, nausea,vomiting clavulanic acid Allergy Severe rash, Verified 02/22/19 12:31 [From Augmentin] flushing, nausea,vomiting vancomycin [VANCOMYCIN] Allergy Severe URSULA Verified 02/22/19 12:31 SYNDROME, CHILLS/SHAKING, TACHYCARDIA, HYPERTENSION codeine Allergy Intermediate hives, Verified 02/22/19 12:31 vomiting fluconazole Allergy Intermediate hives Verified 02/22/19 12:31 nafcillin Allergy Intermediate rash Verified 02/22/19 12:31 oxycodone Allergy Intermediate rash, Verified 02/22/19 12:31 MENTAL CHANGES piperacillin Allergy Intermediate rash Verified 02/22/19 12:31 fish oil Allergy Unknown Verified 02/22/19 12:31 morphine AdvReac Unknown PASS OUT, Verified 02/22/19 12:31 RACING HEART DIALUDID AdvReac Unknown MENTAL Uncoded 01/06/19 16:11 STATUS CHANGES Exam Vital Signs (past 8 hours): - 02/22/19 15:20 02/22/19 15:21 02/22/19 16:18 Temperature 96.9 F L Pulse Rate 102 H 95 H 95 H Respiratory Rate 21 14 16 Blood Pressure 119/65 Blood Pressure [Left Arm] 95/66 98/40 L Pulse Oximetry 100 02/22/19 17:15 02/22/19 18:10 02/22/19 21:09 Temperature 98.1 F 97.6 F Pulse Rate 91 H 92 H 93 H Respiratory Rate 18 18 16 Blood Pressure 128/69 119/69 Blood Pressure [Left Arm] 108/60 Pulse Oximetry 98 93 Oxygen Delivery Method Room Air Narrative Exam Narrative: GENERAL APPEARANCE: well developed, morbidly obese female, unkempt, not at baseline mentation. HEENT: Normocephalic, PERRLA, conjunctiva clear, EOMs intact, no rhinorrhea, mucous membranes are dry and pink without lesions or exudate. NECK/THYROID: neck supple, no jugular venous distention, trachea midline. LYMPH NODES: no cervical or supraclavicular lymphadenopathy. SKIN: [place] warm, dry and pink, redness erythema in the pannus fold with 2 cm wound the left lower abdominal wall, venous stasis changes bilateral lower extremities, healing wounds medial lateral and dorsal RLE with dry scaly skin, healing wounds posterior distal LLE, all with clean wound base without drainage. HEART: regular rate and rhythm, S1-S2 1/6 systolic murmur, no rubs or gallops, brisk capillary refill, 3 + bilateral lower extremity edema. LUNGS: Breath sounds are diminished but clear to auscultation bilaterally, no coarseness crackles or wheezing, no cough present CHEST: Symmetrical movement, shallow tidal volume, no accessory muscle use. ABDOMEN: Soft, obese, no abdominal tenderness on palpation, no guarding or peritoneal signs, no organomegaly however exam limited by body habitus, active bowel tones, abdominal skin is noted above. EXTREMITIES: bilateral upper extremity strength is 5/5, bilateral lower extremity strength is 4/5 and symmetrical NEUROLOGIC: AAO x3, lethargic requiring constant stimulation hard remain awake, sensory exam intact to light touch, hearing grossly normal to speech. PSYCH: Lethargic/drowsy, responds to verbal stimulus with high opening, c ognitive function intact, fair eye contact, flat affect. Objective Labs Result Diagrams: 02/22/19 14:35 02/22/19 14:33 Labs: Laboratory Results - last 24 hr 02/22/19 02/22/19 02/22/19 14:33 14:33 14:33 WBC RBC Hgb Hct MCV MCH MCHC RDW Plt Count Neut % (Auto) Lymph % (Auto) [place] % (Auto) Eos % (Auto) Baso % (Auto) Neut # (Auto) Lymph # (Auto) [place] # (Auto) Eos # (Auto) Baso # (Auto) PT INR APTT Sodium 135 L Potassium 5.2 H Chloride 98 Carbon Dioxide 22 BUN 94 H Creatinine 2.70 H Estimated GFR 17.1 L BUN/Creatinine Ratio 34.8 H Glucose 98 Lactate 2.0 Calcium 8.8 Magnesium Total Bilirubin 0.6 AST 29 ALT 12 Alkaline Phosphatase 217 H Total Creatine Kinase CK-MB (CK-2) CK-MB (CK-2) Rel Index Troponin I B-Natriuretic Peptide < 100 Total Protein 6.8 Albumin 3.3 L Globulin 3.5 Albumin/Globulin Ratio 0.9 L Procalcitonin Urine RBC Urine WBC Ur Squamous Epith Cells Amorphous Sediment Urine Bacteria Ur Culture Indicated? Nasal Screen MRSA (PCR) 02/22/19 02/22/19 02/22/19 14:35 14:52 18:30 WBC 19.1 H RBC 5.65 H Hgb 14.6 Hct 45.9 MCV 81.2 MCH 25.9 L MCHC 31.9 RDW 15.7 H Plt Count 451 H Neut % (Auto) 91.9 H Lymph % (Auto) 2.3 L [place] % (Auto) 5.5 Eos % (Auto) 0.2 L Baso % (Auto) 0.1 Neut # (Auto) 57225 H Lymph # (Auto) 400 L [place] # (Auto) 1000 H Eos # (Auto) 0 Baso # (Auto) 0 PT 13.7 H INR 1.2 APTT 30 Sodium Potassium Chloride Carbon Dioxide BUN Creatinine Estimated GFR BUN/Creatinine Ratio Glucose Lactate Calcium Magnesium Total Bilirubin AST ALT Alkaline Phosphatase Total Creatine Kinase CK-MB (CK-2) CK-MB (CK-2) Rel Index Troponin I B-Natriuretic Peptide Total Protein Albumin Globulin Albumin/Globulin Ratio Procalcitonin Urine RBC None seen Urine WBC 0-1/hpf Ur Squamous Epith Cells 1-5 /hpf D Amorphous Sediment 2+ Urine Bacteria None seen Ur Culture Indicated? Cult not indicated Nasal Screen MRSA (PCR) 02/22/19 02/22/19 02/22/19 18:30 18:30 18:30 WBC RBC Hgb Hct MCV MCH MCHC RDW Plt Count Neut % (Auto) Lymph % (Auto) [place] % (Auto) Eos % (Auto) Baso % (Auto) Neut # (Auto) Lymph # (Auto) [place] # (Auto) Eos # (Auto) Baso # (Auto) PT INR APTT Sodium Potassium Chloride Carbon Dioxide BUN Creatinine Estimated GFR BUN/Creatinine Ratio Glucose Lactate Calcium Magnesium 2.8 H Total Bilirubin AST ALT Alkaline Phosphatase Total Creatine Kinase 75 CK-MB (CK-2) TNP CK-MB (CK-2) Rel Index TNP Troponin I < 0.012 B-Natriuretic Peptide Total Protein Albumin Globulin Albumin/Globulin Ratio Procalcitonin 0.41 Urine RBC Urine WBC Ur Squamous Epith Cells Amorphous Sediment Urine Bacteria Ur Culture Indicated? Nasal Screen MRSA (PCR) 02/22/19 02/22/19 18:31 18:50 WBC RBC Hgb Hct MCV MCH MCHC RDW Plt Count Neut % (Auto) Lymph % (Auto) [place] % (Auto) Eos % (Auto) Baso % (Auto) Neut # (Auto) Lymph # (Auto) [place] # (Auto) Eos # (Auto) Baso # (Auto) PT INR APTT Sodium Potassium Chloride Carbon Dioxide BUN Creatinine Estimated GFR BUN/Creatinine Ratio Glucose Lactate 1.0 Calcium Magnesium Total Bilirubin AST ALT Alkaline Phosphatase Total Creatine Kinase CK-MB (CK-2) CK-MB (CK-2) Rel Index Troponin I B-Natriuretic Peptide Total Protein Albumin Globulin Albumin/Globulin Ratio Procalcitonin Urine RBC Urine WBC Ur Squamous Epith Cells Amorphous Sediment Urine Bacteria Ur Culture Indicated? Nasal Screen MRSA (PCR) Positive for mrsa H Assessment & Plan Assessment & Plan narrative: This is a 78-year-old female patient who is admitted to the hospital for sepsis secondary to pannus cellulitis with altered mental status and acute renal impairment with episode of hypotension with blood pressure dipping to 74/39 in the emergency department responding to IV fluids. 1. Sepsis with transient hypotension, acute, present on admission, active. -patient with onset of symptoms today with generalized weakness associated fall and altered mental status. -associated acute kidney injury with increased creatinine to 2.7 from a baseline of 0.7, transient hypotension to 74/39 in the ER responsive to IV fluid. -sepsis source is identified is cellulitis of the lower abdominal wall. -subsequently directed therapy initiated with volume repletion and antibiotic therapy with patient's stabilization. 2. Acute cellulitis lower abdominal wall, pannus fold, present on admission, active. -patient reports no complaints of pain or focal problems only generalized weakness starting today -WBCs are normal at 19.1, elevated neutrophils at 91.9 %, procalcitonin 0.41, lactate was normal at 1.0 -patient has previously had culture results including Staph, Alcaligenes, Pseudomonas and Proteus and is allergic to vancomyci, clavulanic acid, amoxicillin, nafcillin and Pipracillin -patient started on meropenem 1 g IV in the ER and is renally dosed at every 12 hours 3. Acute kidney injury, present on admission, active -patient appears over dehydrated with dry oral mucosa, skin tenting of hands. -impaired renal function with a BUN of 94 and creatinine of 2.7 with a baseline creatinine of 0.7, creatinine clearance calculated at 34.16. -patient is being rehydrated with 30 milliliter/kilos bolus under sepsis guidelines, will continue normal saline hydration. -will closely monitor renal function, renally dose antibiotic and avoid renal toxic agents. 4. Chronic Venous hypertension bilateral lower extremities, present on admission. -patient with bilateral lower extremity edema that has improved since last admission -patient is on home Lasix 80 mg daily, patient stop taking her Lasix because she felt she was urinating too much. -Lasix is held related to episode hypertension and acute kidney injury. -apply leg wraps left lower extremity 5. Venous stasis leg ulcers, active -the patient has clean healing wounds post debridement, 3 on the right ankle and lower leg and 1 on the posterior left lower leg. -wound care: Clean with normal saline, apply Silvadene ointment, cover with Telfa. 6. Morbid obesity, active -patient weight is down approximately 3.5 kg from prior admission, present weight is 124 kg with a BMI of 45.5. -patient is community dwelling and has severely impaired mobility minimal ambulation. -dietary to consult -PT and OT to consult and treat. Patient is admitted to the hospital due to severity of her symptoms, risk of complications and adverse events. The patient is admitted as an inpatient with expected length of stay to be greater than 2 midnights. Critical care time: 40 minutes Time Spent With Patient Time with patient: Greater than 35 minutes Scores GCS Obed coma scale eye opening: To sound [place] coma scale verbal response: Orientated [place] coma scale motor response: Obey commands Obed coma scale total score: 14 SOFA PaO2/FIO2: >=400 mmHg Platelets: >= 150 Bilirubin: < 1.2 mg/dL Hypotension: MAP >= 70 mmHg Obed Coma Scale: 13-14 Renal: Creatinine 2.0-3.4 mg/dL SOFA Score: 3 Quality VTE Deep Vein Thrombosis/Pulmonary Embolism Present on Admission: No
[2019-02-22 22:51] LABS: Adenovirus Not Detected (Not Detect); Bordetella pertussis Not Detected (Not Detect); Chlamydophila pneumoniae Not Detected (Not Detect); Coronavirus 229E Not Detected (Not Detect); Coronavirus HKU1 Not Detected (Not Detect); Coronavirus NL 63 Not Detected (Not Detect); Coronavirus OC43 Not Detected (Not Detect); Human Metapneumovirus Not Detected (Not Detect); Human Rhinovirus/Enterovirus Not Detected (Not Detect); Influenza A Not Detected (Not Detect); Influenza B Not Detected (Not Detect); Mycoplasma pneumoniae Not Detected (Not Detect); Parainfluenza Virus 1 Not Detected (Not Detect); Parainfluenza Virus 2 Not Detected (Not Detect); Parainfluenza Virus 3 Not Detected (Not Detect); Parainfluenza Virus 4 Not Detected (Not Detect); Respiratory Syncytial Virus Not Detected (Not Detect)
[2019-02-22 23:17] LABS: Appearance Urine UA CLEAR; Bilirubin Urine UA NEGATIVE (NEGATIVE); Color Urine UA YELLOW; Glucose Urine UA NEGATIVE (Negative); Ketones Urine UA TRACE (NEGATIVE); Leukocyte Esterase Urine UA TRACE (NEGATIVE); Nitrite Urine UA NEGATIVE (Negative); Occult Blood Urine UA 2+ (Negative); Protein Urine UA TRACE (Negative); Urobilinogen Urine UA 0.2 E.U./dL (0.2)
[2019-02-22 23:28] LABS: RBC Urine 0-1/HPF (0-5/HPF); WBC Urine 5-10/HPF (0-5/HPF)
[2019-02-22 23:29] LABS: Bacteria Urine Occasional (0-1); Culture Indicated Urine Specimen Cultured
[2019-02-23] VITALS (11 sets, daily range): BP systolic 90–142; BP diastolic 53–80; PULSE 96–150; RESP 16–29; TEMP 36.2–36.8; O2SAT 94–100
[2019-02-23] MEDS: TRAMADOL 50 MG TABLET PO ×2 (02:35→10:50)
[2019-02-23 05:34] LABS: Add Manual Diff / Slide Review NO; Basophils Absolute Auto 0 /uL (0-100); Basophils Percent Auto 0.1 % (0-2); Eosinophils Absolute Auto 100 /uL (0-450); Eosinophils Percent Auto 0.8 % (2-4); Hematocrit 40.3 % (36-46); Hemoglobin 12.9 g/dL (12.0-16.0); Lymphocytes Absolute Auto 500 /uL (1100-4500); Lymphocytes Percent Auto 2.9 % (25-40); Mean Corpuscular Volume 81.2 fL (80-100); Monocytes Absolute Auto 1000 /uL (0-900); Monocytes Percent Auto 6.3 % (3-14); Neutrophils Absolute Auto 14300 /uL (1500-7000); Neutrophils Percent Auto 89.9 % (50-75); Platelet Count 416 X10^3/uL (150-400); Red Blood Cell Count 4.96 X10^6/uL (4.0-5.2); Red Cell Distribution Width 15.7 % (11.6-14.8); White Blood Cell Count 15.9 X10^3/uL (4.5-11.0)
[2019-02-23 05:38] LABS: Alanine Aminotransferase 11 IU/L (<35); Albumin 2.7 g/dL (3.5-5.0); Albumin Globulin Ratio 0.8 (1.0-2.8); Alkaline Phosphatase 194 U/L (38-126); Aspartate Aminotransferase 26 IU/L (14-36); BUN Creatinine Ratio 41.5 (6-22); Bilirubin Total 0.4 mg/dL (0.2-1.3); Blood Urea Nitrogen 83 mg/dL (7-17); Calcium 7.9 mg/dL (8.4-10.2); Carbon Dioxide 23 mmol/L (22-32); Chloride 104 mmol/L (98-107); Estimated Glomerular Filt Rate 24.2 mL/min (>60); Globulin 3.2 g/dL (1.7-4.1); Glucose 103 mg/dL (80-110); HEMOLYSIS < 15 (0-50); Potassium 4.2 mmol/L (3.4-5.1); Sodium 137 mmol/L (137-145); Total Protein 5.9 g/dL (6.3-8.2)
[2019-02-23] MEDS: PANTOPRAZOLE 20 MG TABLET PO (05:39)
[2019-02-23] MEDS: MEROPENEM 1 GM in SODIUM CHLORIDE 0.9% 100 ML 200 ML IV (05:53)
[2019-02-23 05:57] LABS: Procalcitonin 0.39 ng/mL (<0.5)
[2019-02-23 09:56] LABS: Enterococcus species Not Detected (Not Detect); Listeria monocytogenes Not Detected (Not Detect); Staphylococcus species Detected (Not Detect); Vancomycin-rest genes A/B Not Detected (Not Detect)
[2019-02-23 09:57] LABS: Acinetobacter baumannii Not Detected (Not Detect); Candida albicans Not Detected (Not Detect); Candida glabrata Not Detected (Not Detect); Candida krusei Not Detected (Not Detect); Candida parapsilosis Not Detected (Not Detect); Candida tropicalis Not Detected (Not Detect); E. coli Not Detected (Not Detect); Enterobacter cloacae complex Not Detected (Not Detect); Enterobacteriaceae species Not Detected (Not Detect); Haemophilus influenzae Not Detected (Not Detect); KPC (carbapenem-resist gene) Not Detected (Not Detect); Neisseria meningitidis Not Detected (Not Detect); Proteus species Not Detected (Not Detect); Pseudomonas aeruginosa Not Detected (Not Detect); Serratia marcescens Not Detected (Not Detect); Streptococcus agalactiae (Gr B Not Detected (Not Detect); Streptococcus pneumonia Not Detected (Not Detect); Streptococcus pyogenes (Gr A) Not Detected (Not Detect); Streptococcus species Not Detected (Not Detect)
[2019-02-23] MEDS: NYSTATIN POWDER 15GM 1 APPLIC TOP ×2 (10:50→20:48)
--- NOTE | 2019-02-23 11:03 | PT-IP ANOTE ---
Addendum entered and electronically signed by Bindu Morales, PT 02/23/19 11:07: Manual muscle testing of BUE resulted in heart rate spike to 133 bpm. RN notified. Original Note: Contacted pt and attempted PT evaluation. Pt unable to participate in any mobility at this time, representing a decline in her recent mobility status. According to chart review, she discharged from this facility to [facility] 01/09/19. Pt reports she spent ~4 weeks in SNF rehab and was able to walk 27 feet with 4WW at discharge. Pt unable to perform bed mobility today. Will defer full evaluation and attempt to see the patient 02/24/19.
--- NOTE | 2019-02-23 11:56 | CM.DANOTE ---
Patient is a 78 year old female who was admitted on 02/22/19 for Sepsis. Pt has MCR and PRE DIM for insurance and her PCP is Dr. Arya Beyer. EMR was reviewed. Per MD, pt with PICC placed and IV-Abx currently for sepsis and wound care needs. Per RN, pt came in with very poor personal hygiene with urine and deep tissue care needs from lack of brief changing or moving. Pt recently admitted to [facility] in Dec 2018 this year for similar and discharged to [facility] for rehab. Pt is established at [facility] for outpt appointments. SW met bedside with pt and explained role and pt confirms that she discharged from [facility] a little over a month ago to home with her son John and [facility] RN for wound care. Pt was vague about her transition from [facility] to home but states she is aware that SNF will likely be needed again and states she will only go to [facility] and requests SW to make referral to [facility]. SW inquired again about pt's living situation and she states she lives with her son John in [place] and he works police department secretary and is the one who provides transport to [facility] for f/u appointments. Pt has another son William who lives locally but works time piece repairer and is not as involved in her care. Pt states her Dtr Nasima also lives in [place] and is her DPOA but is not very involved in coordinating her medical care. SW discussed the big concerns with pt's hygiene and skin breakdown issues and lack of brief changes and need for likely regular paid caregiver in the home to help and pt down played the concerns and states she was able to manage until she got too weak over the past week to where she couldn't even leave the bed. SW discussed the importance of having a caregiver focused on her care and health rather than occasional family assist. Pt confirms that she currently is not on Medicaid and has not applied before and SW discussed possible need for [place] [facility] care assistance and qualifications under Medicaid or even private pay caregivers. Pt states she wouldn't mind a caregiver if covered under insurance. Pt began drifting off to sleep and not able to participate further in discussion of better home support. SW called [facility] admissions with new referral and faxed clinicals and inquired about pt's previous stay to determine if pt was participating in treatment or any issues during her stay but weekend admissions was filling in and doesn't have access to pt's previous stay but SW can inquire tomorrow with regular admissions staff. SW called [facility] and confirmed pt is open to service and alerted them that pt was admitted and likely will need SNF pending progress. SW called pt's Dtr/DALE Del Real ([phone]) and talked extensively about pt's lack of care for herself and frequent readmits. Dtr confirms that she has talked to the pt for years and attempted to set up caregivers and/or assisted living type situation for the pt but she continues to be adamant about living at home and refusing additional care. Dtr fully aware of pt's cycle of getting infections, needing SNF, then discharging home to just sit and not take care of herself and ends up being readmitted. Dtr continues to help get pt to her appointments and tries to get pt to bathe or at least sponge bathe. Dtr thankful for the update as she was not aware the pt was admitted last night. PT/OT ordered and pending. Plan: SW to follow closely for [facility] review to determine if they can accept and update on if pt was participating in tx at their facility and to keep [facility] updated on pt d/c location as she is currently open to service with them. SW to continue having ongoing discussion with pt about the need for increased assist at home due to her frequency of readmissions for similar medical needs. HEATHER Judd Discharge Planning/Care Management CM Discharge Assessment Start: 02/23/19 11:51 Freq: Status: Active Protocol: Document 02/23/19 11:51 BF (Rec: 02/23/19 11:55 BF [id number]) Discharge Planning Assessment Assigned [employer] Member Other Ranks HEATHER Hinton/Assigned Designee Name Monique Del Real Contact Information [phone] Advance Directives? No Advance Directives on File No History Provided By Patient,Medical Record Has Patient been admitted in last 30 No days? Prior Living Arrangements House Household Members children Type of transporation used prior to Relies on Others admit Comment Lives at home in [place] with son John and he provides transport to appointments. Pt has other son William and Dtr Nasima that both live locally. Independent with ADL's No Is patient alert and oriented? Yes Needs Assistance With Grooming,Managing Medications, Home Chores / Shopping Caregiver for Another No Community Services used prior to Home Health Nurse admission: DME Already Rented / Owned Bath Bench,FWW / Walker Patient/Family Preference Senior Living Facility Barriers to Discharge No Comment IV Abx, family works fulltime Discharge Plan Senior Living Facility Transportation Arrangement Likely facility to provide transport to SNF Referrals Initiated Senior Living If patient plan is SNF: Has PASSR been Yes completed? Medicare Choice List Provided Yes SNF/HH Preference [facility] Has Agency SNF been contacted Yes Whiteboard Updated in Patient Room with Yes name and ext. # of Defence [employer] Member Other Ranks Review Status In Process Please Provide Date Initial DC 02/23/19 Assessment Was Performed Next Review Type Continued Stay Review
[2019-02-23] MEDS: POLYETHYLENE GLYCOL 3350 17 GM POWD.PACK PO (12:01)
[2019-02-23] MEDS: HEPARIN 5,000 UNIT/ML VIAL 5000 UNIT SUBCUT ×2 (12:01→20:47)
[2019-02-23] MEDS: DOCUSATE 100 MG CAPSULE PO ×2 (12:02→20:47)
[2019-02-23] MEDS: SODIUM CHLORIDE 0.9% 1,000 ML 100 ML IV ×2 (12:04→17:38)
--- NOTE | 2019-02-23 12:19 | PC.NURSE ---
Addendum entered by Massiel Marcelo R.N. 02/23/19 13:20: REPORT GIVEN TO KIRIT AND TRANSFERRED TO ROOM 223 Original Note: PT RESISTANT TO ALL CARE- DRESSINGS/BERNARDINO LEFT INTACT TO BILAT LOWER EXTREMITIES DUE TO PT DECLINING DRESSING CHANGE- AND NEED FOR SILVADENE- BATHED AND GOOD SKIN CARE PROVIDED EVERYWHERE ELSE. SKIN CONDITION IS POOR AND REDDENED AND INFLAMED AND HOT AND PAIFUL APPEARING- UNDER PANNIS, BILAT FEET AND POSTERIOR LEGS BILAT WELL BUTTOCKS/COCCYCX WOUNDS- PICC LINE PATENT WITH NS RUNNING AT 100CC/H- STARTED TURN SCHEDULE OF AT LEAST Q 2H - TELE SR/ST WITH 1ST DEGREE AVB-PLEASE REFER TO PT EVAL AND NOTE R/T HER MOBILITY- TRAMADOL FOR PAIN
[2019-02-23] MEDS: SILVER SULFADIAZINE 1% CREAM 25 GM 1 APPLIC TOP (14:32)
--- NOTE | 2019-02-23 15:01 | PC.NURSE ---
BLE DRSG CHANGE: PATIENT ALLOWED DRSG CHANGES TO BLE VENOUS ULCERATIONS. CLEANSED BLE WITH SOAP AND WATER AND WASHCLOTH. APPLIED SILVER SULFAZADINE CREAM TO ULCER WOUND BEDS. RIGHT LEG WITH LARGER IRREGULARLY SHAPED WOUNDS X3 AND LEFT LEG WITH SMALLER IRREGULARLY SHAPED ULCERS X2. ALL WOUNDS WITH YELLOWISH EXUDATE. PERIWOUND SKIN RED AND SWOLLEN AND WARM WITH DRY SCALES TO PROXIMAL SHINS. APPLIED BARRIER CREAM TO MOISTURIZE THOSE AREAS. APPLIED NON-ADHERENT FOAM DRSGS OVER EACH ULCER. WRAPPED WITH KERLIX ON RIGHT. WRAPPED BOTH WITH BERNARDINO WRAP BEFORE, WITH CARE NOT TO SECURE TOO TIGHTLY. PATIENT REPORTS INCREASED PAIN WITH SAME, BUT OVERALL WAS ABLE TO TOLERATE. WOULD PREFER TO TAKE A NAP AFTERWARDS.
--- NOTE | 2019-02-23 16:20 | PM.PN.1 ---
Subjective Subjective Date Patient Seen: 02/23/19 Interval history: Tiffanie Gomez is a 78-year-old female with a past medical history significant for chronic venous insufficiency with venous stasis dermatitis, lymphedema, and recurrent cellulitis and venous stasis ulcerations status post recent debridement who presented to the ED via EMS following a a ground level fall with inability to get up. The patient is resting in bed comfortably. She is alert oriented to person and place. She reports she had a long day and just wants to sleep. She did not get up with physical therapy as it ?hurts.? The patient is known to be resistant to medical interventions including physical and occupational therapy in the past. She endorses lower extremity pain regarding her previous wounds that is chronic and unchanged. She reports her panniculus is slightly more painful than previously. She is voiding via Parmar catheter without difficulty. Her mobility is severely impaired. Exam Vital Signs (past 8 hours): - 02/23/19 11:00 02/23/19 13:00 02/23/19 15:35 Temperature 97.2 F L 97.2 F L Pulse Rate 150 H 106 H 104 H Respiratory Rate 29 H 16 17 Blood Pressure 116/62 117/61 121/67 Pulse Oximetry 95 96 100 Oxygen Delivery Method Room Air Oxygen Flow Rate 0 Narrative Exam Narrative: General: Older morbidly obese female lying in bed and in no acute distress, appears chronically ill, well-developed, well-nourished, appropriately interactive. HEENT: Normocephalic, atraumatic. External ears without defect. Pupils equal, round, and reactive to light. Anicteric sclerae, moist conjunctivae, and no lid lag. Poor dentition. Neck: Supple with full range of motion. No jugular venous distension. No lymphadenopathy or thyromegaly. Cardiovascular: Heart sounds distant but appears to be regular rate and rhythm without murmurs, rubs, or gallops appreciated. Pulmonary: Clear to auscultation bilaterally without crackles, wheezes, or rhonchi. Normal respiratory effort with no use of accessory muscles. Abdomen: Soft, obese, bowel sounds present, nontender, nondistended. No hepatosplenomegaly or masses appreciated. Panniculus appears infected with significant erythema and tenderness without purulent drainage. Extremities: No clubbing or cyanosis. Moderate bilateral lower extremity lymphedema with venous stasis dermatitis and Christos wraps covering chronic wounds C/D/I. Neurological: Cranial nerves grossly intact. Psychiatric: Irritable mood and flat affect. Alert and oriented to person and place. Patient has mild cognitive impairment versus dementia with short-term memory recall deficit. Objective Labs Result Diagrams: 02/23/19 04:50 02/23/19 04:50 Labs: Laboratory Results - last 24 hr 02/22/19 02/22/19 02/22/19 14:32 18:30 18:30 WBC RBC Hgb Hct MCV MCH MCHC RDW Plt Count Neut % (Auto) Lymph % (Auto) Rich % (Auto) Eos % (Auto) Baso % (Auto) Neut # (Auto) Lymph # (Auto) Rich # (Auto) Eos # (Auto) Baso # (Auto) PT 13.7 H INR 1.2 APTT 30 Sodium Potassium Chloride Carbon Dioxide BUN Creatinine Estimated GFR BUN/Creatinine Ratio Glucose Lactate Calcium Magnesium Total Bilirubin AST ALT Alkaline Phosphatase Total Creatine Kinase 75 CK-MB (CK-2) TNP CK-MB (CK-2) Rel Index TNP Troponin I < 0.012 Total Protein Albumin Globulin Albumin/Globulin Ratio Procalcitonin Urine Color Urine Appearance Urine pH Ur Specific [place] Urine Protein Urine Glucose (UA) Urine Ketones Urine Occult Blood Urine Nitrate Urine Bilirubin Urine Urobilinogen Ur Leukocyte Esterase Urine RBC Urine WBC Urine Bacteria Ur Culture Indicated? Nasal Screen MRSA (PCR) A. baumannii (PCR) Not detected Chlamy pneumoniae PCR Adenovirus (PCR) B.parapertussis DNA PCR Bere albicans (PCR) Not detected C. glabrata (PCR) Not detected C. krusei (PCR) Not detected C. parapsilosis (PCR) Not detected C. tropicalis (PCR) Not detected Coronavirus OC43 (PCR) Coronavirus HKU1 (PCR) Coronavirus 229E (PCR) Coronavirus NL63 (PCR) Enterobacteriac sp PCR Not detected E. cloacae complex PCR Not detected Enterococcus sp PCR Not detected E. coli (PCR) Not detected H. influenzae (PCR) Not detected Human Metapneumovir PCR Influenza Type A (PCR) Influenza Type B (PCR) Klebsiella oxytoca PCR Not detected Klebsiella pneumoniae Not detected List. monocytogenes PCR Not detected M. pneumoniae (PCR) N. meningitidis (PCR) Not detected Parainfluenza 1 (PCR) Parainfluenza 2 (PCR) Parainfluenza 3 (PCR) Parainfluenza 4 (PCR) Proteus species (PCR) Not detected RSV (PCR) Entero/Rhino (PCR) Serratia marcescens PCR Not detected Staphylococcus sp PCR Detected H Staph aureus (PCR) Not detected mecA-Methicil Res Gene Detected H Streptococcus sp PCR Not detected Group A Strep (PCR) Not detected Strep agalactiae (PCR) Not detected Strep pneumoniae (PCR) Not detected P. aeruginosa (PCR) Not detected Rhett/B-Vanco Res Genes Not detected KPC-Carbap Res Gene PCR Not detected 02/22/19 02/22/19 02/22/19 18:30 18:30 18:31 WBC RBC Hgb Hct MCV MCH MCHC RDW Plt Count Neut % (Auto) Lymph % (Auto) Rich % (Auto) Eos % (Auto) Baso % (Auto) Neut # (Auto) Lymph # (Auto) Rich # (Auto) Eos # (Auto) Baso # (Auto) PT INR APTT Sodium Potassium Chloride Carbon Dioxide BUN Creatinine Estimated GFR BUN/Creatinine Ratio Glucose Lactate Calcium Magnesium 2.8 H Total Bilirubin AST ALT Alkaline Phosphatase Total Creatine Kinase CK-MB (CK-2) CK-MB (CK-2) Rel Index Troponin I Total Protein Albumin Globulin Albumin/Globulin Ratio Procalcitonin 0.41 Urine Color Urine Appearance Urine pH Ur Specific [place] Urine Protein Urine Glucose (UA) Urine Ketones Urine Occult Blood Urine Nitrate Urine Bilirubin Urine Urobilinogen Ur Leukocyte Esterase Urine RBC Urine WBC Urine Bacteria Ur Culture Indicated? Nasal Screen MRSA (PCR) Positive for mrsa H A. baumannii (PCR) Chlamy pneumoniae PCR Adenovirus (PCR) B.parapertussis DNA PCR Bere albicans (PCR) C. glabrata (PCR) C. krusei (PCR) C. parapsilosis (PCR) C. tropicalis (PCR) Coronavirus OC43 (PCR) Coronavirus HKU1 (PCR) Coronavirus 229E (PCR) Coronavirus NL63 (PCR) Enterobacteriac sp PCR E. cloacae complex PCR Enterococcus sp PCR E. coli (PCR) H. influenzae (PCR) Human Metapneumovir PCR Influenza Type A (PCR) Influenza Type B (PCR) Klebsiella oxytoca PCR Klebsiella pneumoniae List. monocytogenes PCR M. pneumoniae (PCR) N. meningitidis (PCR) Parainfluenza 1 (PCR) Parainfluenza 2 (PCR) Parainfluenza 3 (PCR) Parainfluenza 4 (PCR) Proteus species (PCR) RSV (PCR) Entero/Rhino (PCR) Serratia marcescens PCR Staphylococcus sp PCR Staph aureus (PCR) mecA-Methicil Res Gene Streptococcus sp PCR Group A Strep (PCR) Strep agalactiae (PCR) Strep pneumoniae (PCR) P. aeruginosa (PCR) Rhett/B-Vanco Res Genes KPC-Carbap Res Gene PCR 02/22/19 02/22/19 02/22/19 18:50 21:15 21:25 WBC RBC Hgb Hct MCV MCH MCHC RDW Plt Count Neut % (Auto) Lymph % (Auto) Rich % (Auto) Eos % (Auto) Baso % (Auto) Neut # (Auto) Lymph # (Auto) Rich # (Auto) Eos # (Auto) Baso # (Auto) PT INR APTT Sodium Potassium Chloride Carbon Dioxide BUN Creatinine Estimated GFR BUN/Creatinine Ratio Glucose Lactate 1.0 Calcium Magnesium Total Bilirubin AST ALT Alkaline Phosphatase Total Creatine Kinase CK-MB (CK-2) CK-MB (CK-2) Rel Index Troponin I Total Protein Albumin Globulin Albumin/Globulin Ratio Procalcitonin Urine Color Yellow Urine Appearance Clear Urine pH 5.0 Ur Specific [place] 1.010 Urine Protein Trace H Urine Glucose (UA) Negative Urine Ketones Trace H Urine Occult Blood 2+ H Urine Nitrate Negative Urine Bilirubin Negative Urine Urobilinogen 0.2 Ur Leukocyte Esterase Trace H Urine RBC 0-1/hpf Urine WBC 5-10/hpf H Urine Bacteria Occasional (0-1) Ur Culture Indicated? Specimen cultured Nasal Screen MRSA (PCR) A. baumannii (PCR) Chlamy pneumoniae PCR Not detected Adenovirus (PCR) Not detected B.parapertussis DNA PCR Not detected Bere albicans (PCR) C. glabrata (PCR) C. krusei (PCR) C. parapsilosis (PCR) C. tropicalis (PCR) Coronavirus OC43 (PCR) Not detected Coronavirus HKU1 (PCR) Not detected Coronavirus 229E (PCR) Not detected Coronavirus NL63 (PCR) Not detected Enterobacteriac sp PCR E. cloacae complex PCR Enterococcus sp PCR E. coli (PCR) H. influenzae (PCR) Human Metapneumovir PCR Not detected Influenza Type A (PCR) Not detected Influenza Type B (PCR) Not detected Klebsiella oxytoca PCR Klebsiella pneumoniae List. monocytogenes PCR M. pneumoniae (PCR) Not detected N. meningitidis (PCR) Parainfluenza 1 (PCR) Not detected Parainfluenza 2 (PCR) Not detected Parainfluenza 3 (PCR) Not detected Parainfluenza 4 (PCR) Not detected Proteus species (PCR) RSV (PCR) Not detected Entero/Rhino (PCR) Not detected Serratia marcescens PCR Staphylococcus sp PCR Staph aureus (PCR) mecA-Methicil Res Gene Streptococcus sp PCR Group A Strep (PCR) Strep agalactiae (PCR) Strep pneumoniae (PCR) P. aeruginosa (PCR) Rhett/B-Vanco Res Genes KPC-Carbap Res Gene PCR 02/23/19 02/23/19 02/23/19 04:50 04:50 04:50 WBC 15.9 H RBC 4.96 Hgb 12.9 Hct 40.3 MCV 81.2 MCH 26.0 MCHC 32.0 RDW 15.7 H Plt Count 416 H Neut % (Auto) 89.9 H Lymph % (Auto) 2.9 L Rich % (Auto) 6.3 Eos % (Auto) 0.8 L Baso % (Auto) 0.1 Neut # (Auto) 45616 H Lymph # (Auto) 500 L Rich # (Auto) 1000 H Eos # (Auto) 100 Baso # (Auto) 0 PT INR APTT Sodium 137 Potassium 4.2 Chloride 104 Carbon Dioxide 23 BUN 83 H Creatinine 2.00 H Estimated GFR 24.2 L BUN/Creatinine Ratio 41.5 H Glucose 103 Lactate Calcium 7.9 L Magnesium Total Bilirubin 0.4 AST 26 ALT 11 Alkaline Phosphatase 194 H Total Creatine Kinase CK-MB (CK-2) CK-MB (CK-2) Rel Index Troponin I Total Protein 5.9 L Albumin 2.7 L Globulin 3.2 Albumin/Globulin Ratio 0.8 L Procalcitonin 0.39 Urine Color Urine Appearance Urine pH Ur Specific [place] Urine Protein Urine Glucose (UA) Urine Ketones Urine Occult Blood Urine Nitrate Urine Bilirubin Urine Urobilinogen Ur Leukocyte Esterase Urine RBC Urine WBC Urine Bacteria Ur Culture Indicated? Nasal Screen MRSA (PCR) A. baumannii (PCR) Chlamy pneumoniae PCR Adenovirus (PCR) B.parapertussis DNA PCR Bere albicans (PCR) C. glabrata (PCR) C. krusei (PCR) C. parapsilosis (PCR) C. tropicalis (PCR) Coronavirus OC43 (PCR) Coronavirus HKU1 (PCR) Coronavirus 229E (PCR) Coronavirus NL63 (PCR) Enterobacteriac sp PCR E. cloacae complex PCR Enterococcus sp PCR E. coli (PCR) H. influenzae (PCR) Human Metapneumovir PCR Influenza Type A (PCR) Influenza Type B (PCR) Klebsiella oxytoca PCR Klebsiella pneumoniae List. monocytogenes PCR M. pneumoniae (PCR) N. meningitidis (PCR) Parainfluenza 1 (PCR) Parainfluenza 2 (PCR) Parainfluenza 3 (PCR) Parainfluenza 4 (PCR) Proteus species (PCR) RSV (PCR) Entero/Rhino (PCR) Serratia marcescens PCR Staphylococcus sp PCR Staph aureus (PCR) mecA-Methicil Res Gene Streptococcus sp PCR Group A Strep (PCR) Strep agalactiae (PCR) Strep pneumoniae (PCR) P. aeruginosa (PCR) Rhett/B-Vanco Res Genes KPC-Carbap Res Gene PCR Assessment & Plan Assessment & Plan narrative: Tiffanie Gomez is a 78-year-old female with a past medical history significant for chronic venous insufficiency with venous stasis dermatitis, lymphedema, and recurrent cellulitis and venous stasis ulcerations status post recent debridement who presented to the ED via EMS following a a ground level fall with inability to get up. 1. Acute sepsis, present on admission. Resolved. -Sepsis criteria met including: Leukocytosis (WBC 19.1), tachycardic (HR 102), fluid responsive hypotension (BP 74/39), with organ dysfunction of TRI and altered mental status and infectious source cellulitis of abdominal panniculus. -Early goal-directed therapy met including: Broad-spectrum IV antibiotics and IV fluid resuscitation. 2. Acute cellulitis of abdominal panniculus, present on admission. Active. -Patient presented with generalized weakness and inability to stand up. -WBC elevated at 19.1 and procalcitonin 0.41. Lactate was normal at 1.0. Continue to trend WBC and procalcitonin daily which are trending down. -Patient previously had wound culture results including Staph, Alcaligenes, Pseudomonas and Proteus and patient has numerous allergies to antibiotics including: Vancomycin, clavulanic acid, amoxicillin, nafcillin and piperacillin. -Continue meropenem 1 g IV renally dosed at every 12 hours. 3. Acute kidney injury, present on admission. Improving. -Likely multifactorial and secondary to prerenal azotemia from dehydration and poor PO intake, infection, and nephrotoxic medication of Lasix. -Initial creatinine 2.7. Baseline creatinine 0.7. Creatinine now 2.0 and improving. -Received 2.7 L NS boluses total in the ED. Continue normal saline at 100 mL/hr in the discontinued as patient appears adequately hydrated. -Avoid nephrotoxic agents. -Continue to monitor renal function daily. 4. Chronic venous insufficiency with stasis dermatitis, lymphedema, and chronically infected venous stasis ulcerations status post recent debridement, present on admission. Stable. -Patient previously had infected venous stasis ulcerations now status post recent debridement on 01/07/2019. The patient's has 3 wounds on the right ankle and lower leg and 1 wound on the posterior left lower leg for which all wounds appear to be healing well. -Continue wound care: Clean with normal saline, apply Silvadene ointment, cover with Telfa. patient with bilateral lower extremity edema that has improved since last admission -Patient is on furosemide 80 mg daily which has been held due to TRI. -Continue conservative treatment including: Apply leg wraps to lower extremities and elevate lower extremities above the level of the heart while in bed. 5. Morbid obesity, present on admission. Active. -BMI of 45.5. Patient has lost 3.5 kg from her previous hospitalization. -Patient has severely impaired mobility with minimal ambulation and lives with her son. [facility] has been contacted by ED. -Ordered dietitian consultation which is pending and unavailable on the weekend. -Ordered PT and OT evaluation and treatment, pending. 6. Failure to thrive and self neglect with mild cognitive impairment versus dementia, present on admission. Active. -Patient has very poor hygiene, has severely impaired mobility with minimal ambulation, and is unable to care for herself. The patient lives at home with her son who is away most of the day for work. -Patient is known to be resistant to medical interventions specifically physical and occupational therapies. She frequently reports that she is able to perform her ADLs on her own but is unable to reproduce the physical ability to perform ADLs during her previous hospitalizations. -Requested occupational therapy to perform cognitive assessment with [facility] when available. -[facility] has been contacted by ED. -Consulted INSURANCE SERVICE REPRESENTATIVE for short and long-term care placement, as well as, [facility] referral. Disposition: Patient will undoubtedly need of intermediate facility in several days once infection has been adequately treated for continued wound management and physical rehabilitation. Quality VTE Deep Vein Thrombosis/Pulmonary Embolism Present on Admission: No
[2019-02-23] MEDS: MEROPENEM 1 GM/50 ML PIGGYBACK IV (17:36)
[2019-02-24] VITALS (11 sets, daily range): BP systolic 104–147; BP diastolic 49–79; PULSE 69–117; RESP 15–20; TEMP 36.2–36.7; O2SAT 96–115; BMI 24.4
--- NOTE | 2019-02-24 | PATH_ITS ---
[facility] Accession Number: [id number] . 01 Material submitted: . PART A: gastrointestinal site - GASTRIC BIOPSY PART B: esophagus, E-G Junction - GE JUNCTION . 01 Clinical history: . PAIN/WEAKNESS . 02 Diagnosis: A. Stomach, Biopsy: Gastric antral and body mucosa with mild chronic inflammation. Negative for Helicobacter organisms by immunohistochemistry. Negative for intestinal metaplasia. Negative for dysplasia and malignancy. . B. Gastroesophageal Junction, Biopsy: Squamous mucosa with active esophagitis and focal erosion. Proximal gastric-type mucosa not sampled. Negative for fungal organisms on PAS stain. Negative for dysplasia and malignancy. [facility] 02/26/2019 1714 Local . 02 Electronically signed: . Jordan Quezada MD, PhD, Pathologist NPI- [id number] . 01 Gross description: . Part A: GASTRIC BIOPSY: Received in formalin are 4 fragment(s) of garcia, soft tissue measuring 0.1 x 0.1 x 0.1 cm to 0.2 x 0.2 x 0.2 cm submitted entirely in 1 cassette(s) Part B: GE JUNCTION: Received in formalin are 2 fragment(s) of garcia, soft tissue measuring 0.1 x 0.1 x 0.1 cm to 0.2 x 0.1 x 0.1 cm submitted entirely in 1 cassette(s) /[facility] [place] [facility] 02/24/2019 2258 Local . 02 Microscopic: . A. An immunohistochemical stain was performed to evaluate for Helicobacter organisms and is negative. The control stain showed appropriate reactivity. . B. A PAS stain was performed to evaluate for fungal organisms and is negative. The control stain showed expected reactivity. . * This test was developed and its performance characteristics determined by [employer]. It has not been cleared or approved by the U.S. Food and Drug Administration. The FDA has determined that such clearance or approval is not necessary. This test is used for clinical purposes. It should not be regarded as investigational or for research. . 02 Pathologist provided ICD-10: K29.70, K20.9 . 02 CPT . 800621, 115458, E77477, 718613 Performed at: 01 [facility] [address] [place] [address] [id number] MD Oh Buchanan MD Phone: [phone] Performed at: 02 [facility] [id number] [place] [address] [id number] MD Maddie Ruiz MD Phone: [phone]
--- NOTE | 2019-02-24 01:07 | PC.NURSE ---
Patient placed on telemetry as per continued active orders.
[2019-02-24] MEDS: ONDANSETRON 4 MG/2 ML INJ IV ×2 (01:20→09:31)
[2019-02-24] MEDS: BISACODYL 10 MG SUPP PR ×2 (06:27→19:49)
[2019-02-24] MEDS: MEROPENEM 1 GM/50 ML PIGGYBACK IV ×2 (06:30→19:15)
[2019-02-24 06:58] LABS: PH Gastric Fluid 4 pH (1-2)
[2019-02-24 06:59] LABS: Occult Blood Gastric Fluid POSITIVE (NEGATIVE)
--- NOTE | 2019-02-24 07:46 | PC.NURSE ---
Informed Cristo Gurrola of emesis 500 ml, dark,blood tinge,, possible coffee ground like. Also got order to change po protonix to IVP protonix. Sent gastric specimen down to lab as requested.
[2019-02-24 08:21] LABS: Add Manual Diff / Slide Review NO; Basophils Absolute Auto 200 /uL (0-100); Eosinophils Absolute Auto 0 /uL (0-450); Eosinophils Percent Auto 0.1 % (2-4); Hematocrit 41.3 % (36-46); Hemoglobin 13.5 g/dL (12.0-16.0); Lymphocytes Absolute Auto 400 /uL (1100-4500); Lymphocytes Percent Auto 2.3 % (25-40); Mean Corpuscular HGB Conc 32.6 % (30-36); Mean Corpuscular Hemoglobin 26.4 PG (26-34); Mean Corpuscular Volume 80.8 fL (80-100); Monocytes Absolute Auto 900 /uL (0-900); Monocytes Percent Auto 5.4 % (3-14); Neutrophils Absolute Auto 14800 /uL (1500-7000); Neutrophils Percent Auto 91.2 % (50-75); Platelet Count 408 X10^3/uL (150-400); Red Blood Cell Count 5.12 X10^6/uL (4.0-5.2); Red Cell Distribution Width 15.9 % (11.6-14.8); White Blood Cell Count 16.3 X10^3/uL (4.5-11.0)
[2019-02-24 08:24] LABS: BUN Creatinine Ratio 46.3 (6-22); Blood Urea Nitrogen 74 mg/dL (7-17); Calcium 8.4 mg/dL (8.4-10.2); Carbon Dioxide 25 mmol/L (22-32); Chloride 105 mmol/L (98-107); Estimated Glomerular Filt Rate 31.3 mL/min (>60); Glucose 117 mg/dL (80-110); HEMOLYSIS < 15 (0-50); Magnesium 2.6 mg/dL (1.6-2.3); Potassium 4.1 mmol/L (3.4-5.1); Sodium 138 mmol/L (137-145)
[2019-02-24] MEDS: PANTOPRAZOLE 40 MG VIAL IV (08:29)
[2019-02-24] MEDS: HEPARIN 5,000 UNIT/ML VIAL 5000 UNIT SUBCUT ×2 (08:29→20:16)
[2019-02-24 08:44] LABS: Procalcitonin 0.29 ng/mL (<0.5)
[2019-02-24] MEDS: PROCHLORPERAZINE 10 MG/2 ML VIAL IV (10:49)
--- NOTE | 2019-02-24 11:43 | PC.NURSE ---
Day shift: Pt OOB w/ PT and OT. They report that Pt did very well getting from bed to chair. An EDG will be performed today and Pt helped back to bed for this. Pt remains on tele w/ HR in 110's. Pt also SOB and tired with the minimal activity from bed to chair. Bed alarm on and call light in reach. Awaiting to transport for EDG.
--- NOTE | 2019-02-24 11:46 | PM.CN ---
History of Present Illness Consult details Date Patient Seen: 02/24/19 Time Patient Seen: 11:50 Chief complaint: Pain/weakness Reason for consult: Hematemesis Narrative: This is a 78-year-old female admitted to the hospital after a ground level fall and resolving sepsis secondary to chronic wounds of her lower extremities. She is now but having nausea and intermittent hematemesis and emesis of coffee-ground material. She is not anticoagulated does not take NSAIDs and has been receiving Protonix while in the hospital. Hematocrit 40 baseline appears to be about 40 as well, heart rate 115, blood pressure 130 systolic, has not required transfusion. No history of peptic ulcer disease. [facility] Medical History Cellulitis (Inactive) Chronic venous hypertension (idiopathic) with ulcer and inflammation of left lower extremity (Inactive) Chronic venous hypertension (idiopathic) with ulcer and inflammation of right lower extremity (Inactive) Lymphedema of both lower extremities (Inactive) Morbid obesity (Acute) Stasis dermatitis (Acute) Wound of lower extremity (Acute) Surgical History H/O umbilical hernia repair (Acute) Family History Father Cancer Mother Cancer Social History household members: children Smoking Status: Never smoker alcohol intake: never Meds Home Medications and Allergies Home Medications Medication Instructions Recorded Confirmed Type acetaminophen 650 mg PO Q6HP PRN #0 05/25/17 02/22/19 History furosemide [Lasix] 80 mg PO QDAY #30 tab 05/29/17 02/22/19 Rx alendronate 70 mg PO QWEEK 10/24/18 02/22/19 History docusate sodium [DOK] 100 mg PO BID PRN #60 cap 01/09/19 02/22/19 Rx nystatin [Nystop] 1 applic TOPICAL BID #15 gram 01/09/19 02/22/19 Rx polyethylene glycol 3350 17 gm PO DAILY #1 pkg 01/09/19 02/22/19 Rx tramadol 50 mg PO QID PRN #20 tab 01/09/19 02/22/19 Rx Allergies Allergy/AdvReac Type Severity Reaction Status Date / Time amoxicillin [From Augmentin] Allergy Severe rash, Verified 02/22/19 12:31 flushing, nausea,vomiting clavulanic acid Allergy Severe rash, Verified 02/22/19 12:31 [From Augmentin] flushing, nausea,vomiting vancomycin [VANCOMYCIN] Allergy Severe URSULA Verified 02/22/19 12:31 SYNDROME, CHILLS/SHAKING, TACHYCARDIA, HYPERTENSION codeine Allergy Intermediate hives, Verified 02/22/19 12:31 vomiting fluconazole Allergy Intermediate hives Verified 02/22/19 12:31 nafcillin Allergy Intermediate rash Verified 02/22/19 12:31 oxycodone Allergy Intermediate rash, Verified 02/22/19 12:31 MENTAL CHANGES piperacillin Allergy Intermediate rash Verified 02/22/19 12:31 fish oil Allergy Unknown Verified 02/22/19 12:31 morphine AdvReac Unknown PASS OUT, Verified 02/22/19 12:31 RACING HEART DIALUDID AdvReac Unknown MENTAL Uncoded 01/06/19 16:11 STATUS CHANGES Review of Systems Review of Systems ROS Unobtainable: All systems reviewed & are unremarkable except as noted in HPI and below Exam Vital Signs (past 8 hours): - 02/24/19 05:30 02/24/19 07:00 02/24/19 10:50 Temperature 97.6 F 97.6 F 98.0 F Pulse Rate 109 H 105 H 115 H Respiratory Rate 20 20 20 Blood Pressure 112/67 114/73 128/74 Pulse Oximetry 97 98 100 Oxygen Delivery Method Room Air Oxygen Flow Rate 0 Narrative Exam Narrative: General-no acute distress, morbidly obese HEENT-moist mucous membranes, no scleral icterus Neck-supple, no lymphadenopathy Chest- non labored respirations, clear to auscultation bilaterally Cardiac-regular rate no peripheral edema Abdomen-soft, nontender, non distended Extremities-warm, edematous Neurological-alert no focal deficits Objective Labs Result Diagrams: 02/24/19 08:00 02/24/19 08:00 Labs: Laboratory Results - last 24 hr 02/24/19 02/24/19 02/24/19 06:20 08:00 08:00 WBC 16.3 H RBC 5.12 Hgb 13.5 Hct 41.3 MCV 80.8 MCH 26.4 MCHC 32.6 RDW 15.9 H Plt Count 408 H Neut % (Auto) 91.2 H Lymph % (Auto) 2.3 L [place] % (Auto) 5.4 Eos % (Auto) 0.1 L Baso % (Auto) 1.0 Neut # (Auto) 74292 H Lymph # (Auto) 400 L [place] # (Auto) 900 Eos # (Auto) 0 Baso # (Auto) 200 H Sodium Potassium Chloride Carbon Dioxide BUN Creatinine Estimated GFR BUN/Creatinine Ratio Glucose Calcium Magnesium Procalcitonin 0.29 Gastric Fluid pH 4 H Gastric Occult Blood Positive H 02/24/19 08:00 WBC RBC Hgb Hct MCV MCH MCHC RDW Plt Count Neut % (Auto) Lymph % (Auto) [place] % (Auto) Eos % (Auto) Baso % (Auto) Neut # (Auto) Lymph # (Auto) [place] # (Auto) Eos # (Auto) Baso # (Auto) Sodium 138 Potassium 4.1 Chloride 105 Carbon Dioxide 25 BUN 74 H Creatinine 1.60 H Estimated GFR 31.3 L BUN/Creatinine Ratio 46.3 H Glucose 117 H Calcium 8.4 Magnesium 2.6 H Procalcitonin Gastric Fluid pH Gastric Occult Blood Assessment & Plan Assessment and plan (1) Hematemesis of unknown cause: Problem details: This is a 78-year-old female not on anticoagulation or NSAIDs having intermittent hematemesis and coffee ground emesis. Hemodynamically stable hematocrit 40 not required transfusion will perform an esophagoduodenoscopy today. We discussed the risks of the procedure including bleeding perforation missed diagnosis need for further procedure. Her questions have been answered and she is in agreement with this plan. -NPO -Protonix 40 mg b.i.d. Current visit: Yes Status: Acute
--- NOTE | 2019-02-24 11:47 | OT.IP.EVAL ---
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 (02/22/19) Non-pressure chronic ulcer of unspecified part of left lower leg with unspecified severity (02/22/19) Surgery Performed Operation Date: 02/24/19 11:30 <No data on this case meets the specified criteria> Past Medical History (Last Reviewed 02/24/19 @ 11:47 by Shelton Valdez MD) Cellulitis (Inactive) Chronic venous hypertension (idiopathic) with ulcer and inflammation of left lower extremity (Inactive) Chronic venous hypertension (idiopathic) with ulcer and inflammation of right lower extremity (Inactive) Lymphedema of both lower extremities (Inactive) Morbid obesity (Acute) Stasis dermatitis (Acute) Wound of lower extremity (Acute) Surgical History (Last Reviewed 02/24/19 @ 11:47 by Shelton Valdez MD) H/O umbilical hernia repair (Acute) Occupational Therapy Inpatient Evaluation/Re-Eval M1 PT/OT-IP Prior Functional Status Start: 02/23/19 08:01 Freq: NEEDED Status: Active Protocol: Document 02/24/19 11:53 CGR (Rec: 02/24/19 12:21 CGR [email or web address]) Medical Review Prior Functional Status Medical History Reviewed Yes Communication Pt is able to communicate verbally Mobility and Gait Pt states she was MOD I for short distances with a 4WW. Per CM note pt left [facility] in December ambulating 27 feet with a 4WW. Activities of Daily Living and IADL's Pt states she was IND in ADLs but did not do LB dressing. Social History Household Members children Living Arrangements House Number of Floors (Floors) One Floor Number of Stairs To Enter/Railing? ramp entry Home Environment Tub/Shower Home Equipment Four Wheel Walker,Manual Wheelchair,Tub Transfer Bench Employment Status Retired Additional Social History Comment Pt lives with her son who works department store manager. Son provides transportation to wound care. Pt uses a w/c for community distances. M2 OT-IP Current Condition Start: 02/24/19 10:52 Freq: Status: Active Protocol: Document 02/24/19 11:53 CGR (Rec: 02/24/19 12:21 CGR [email or web address]) Occupational Therapy Current Condition Current Condition Evaluation Date 02/24/19 Treatment Diagnosis Fall and LE cellulites Diagnosis Onset Date 02/22/19 M3 OT- IP Subjective and Pain Start: 02/24/19 10:52 Freq: Status: Active Protocol: Document 02/24/19 11:53 CGR (Rec: 02/24/19 12:21 CGR [email or web address]) OT- Subjective Occupational Therapy Visit Type Type Initial Evaluation Visit Start Time 11:00 Visit Stop Time 11:47 Total Visit Minutes 47 OT Pain Assessment Pain When Pain Assessed During Mobility Pain Present Pain Present Pain Reported Location bilater leg pain Scale Used Pt states pain but did not rate Management Techniques Modification of Treatment M4 OT- IP ADL's Start: 02/24/19 10:52 Freq: Status: Active Protocol: Document 02/24/19 11:53 CGR (Rec: 02/24/19 12:21 CGR [email or web address]) OT [id number] Comments OT Self-Feeding Comments Pt now NPO but able to swish water in mouth and spit into cup to maintain NPO. OT ADL-Grooming Comments OT Grooming Comments Pt declined OT ADL-Oral Care Comments Oral Care Comments Pt declined. OT ADL-Dressing General Eval Lower Body Dressing Ability Total Assistance Areas Needing Assistance Socks OT ADL-Toileting General Evaluation Toileting Ability Total Assistance Comments OT Toileting Comments Pt with Parmar and had small BM upon transferring to the chair . Pt was unable to give therapist notice and declined moving to the C. Total a for back pericare. OT ADL-Bathing Comments OT Bathing Comments Not performed in this session. M5 OT- IP IADL's Start: 02/24/19 10:52 Freq: Status: Active Protocol: Document 02/24/19 11:53 CGR (Rec: 02/24/19 12:21 CGR [email or web address]) OT-Instrumental Activities of Daily Living Deficits IADL Deficits Identified Deficits Home Safety Awareness Awareness of Need for Assistance at Home Decreased Awareness Ability to Problem Solve Emergency Unable to Problem Solve Situations Medication Management Medication Management Comments Pt is unsafe to manage her medications at this time Money Management Money Management Comments Pt is unable to safely manage her money at this time. Meal Preparation Meal Preparation Comments Pt would not be able to safely manage meal prep at this time . Drive Thru Order Taker Drive Thru Order Taker Caregiver Provides Assist Driving Driving Comments Pt's son provides transportation. M6 OT- IP Functional Cognition Start: 02/24/19 10:52 Freq: Status: Active Protocol: Document 02/24/19 11:53 CGR (Rec: 02/24/19 12:21 CGR [email or web address]) Cognitive Factors Limiting Selfcare Function Cognitive Ability Level of Alertness Alert Patient Orientation Name,Age,Birthday,Month,Date, Year,Day of Week,Place, Situation Attention Span Ability Capable of Focused Attention, Capable of Sustained Attention Ability to Follow Commands Able to Follow One Step Commands Safety Awareness Underestimates Need for Assistance Problem Solving Ability Unable to Identify Errors, Needs Assist to Identify Solutions Cognitive Tests SLUMS Pt participated in the formal SLUMS assessment. Total score of 17. Pt did well with orientation and listening comprehension. Pt had difficulty with all questions utilizing numbers, short term recall, and the clock task. Form to be scanned into the pts chart. OT- Vision and Hearing OT- Hearing Assessment OT- Hearing Assessment WFL OT- Vision Assessment Visual Attentiveness WFL Occular Pursuits WFL Visual Convergence WFL Vision Assessment Comments Pt tolerated limited visual assessment as she prefers to keep her eyes closed. M7 OT- IP Mobility and Balance Start: 02/24/19 10:52 Freq: Status: Active Protocol: Document 02/24/19 11:53 CGR (Rec: 02/24/19 12:21 CGR [email or web address]) OT- Bed Mobility Assessment Rolling Type of Rolling Roll to Right Level of Assistance Maximum Assistance,2 Person Assistance,Bedrails Supine to Sit Supine to Sit Assist Maximum Assistance,2 Person Assistance,Bedrails Sit to Supine Sit to Supine Assist Maximum Assistance,2 Person Assistance,Bedrails Scooting Scooting to Edge of Bed Maximum Assistance,2 Person Assistance,Bedrails Scooting Up and Down in Bed Total Assistance,2 Person Assistance OT-Transfer Assessment Sit to and From Stand Sit to and from Stand Minimal Assistance,Moderate Assistance,2 Person Assistance Transfers Transfer Ability Minimal Assistance,2 Person Assistance Technique Transfer Destination Bed,Chair Transfer Technique Stand Step Pivot Devices Transfer Assistive Devices Gait Belt,Front Wheeled Walker Orthotic/Prosthetic Devices or Brace: No Comments Mobility Comments Min a x2 sit to stand from high bed, mod a x2 sit to stand from chair. OT- Gait Assessment Gait Gait Assistance Required: Minimum Assistance Assistive Devices Assistive Device Gait Belt,Front Wheeled Walker Comments Gait Ability Comments mobility from bed to chair at bedside. OT- Balance Assessment Sitting Balance and Reactions Static Sitting Balance Ability Poor Dynamic Sitting Balance Ability Poor M8 OT- IP Objective Assessments Start: 02/24/19 10:52 Freq: Status: Active Protocol: Document 02/24/19 11:53 CGR (Rec: 02/24/19 12:21 CGR [email or web address]) OT Gross Range of Motion Upper Extremity Range of Motion Assessment Within Functional Limits OT Strength Comments Strength Comments Formal MMT not performed, grossly 4/5 noted with activities. OT- Coordination Assessment Upper Extremity Finger to Nose Test Within Functional Limits Finger Tapping Test Within Functional Limits OT-Muscle Tone Assessment Muscle Tone WNL Yes OT Sensation Assessment Edema Edema Present Edema Comments Pt has significant edema to her BLE. M9 OT- IP Assessment and Plan Start: 02/24/19 10:52 Freq: Status: Active Protocol: Document 02/24/19 11:53 CGR (Rec: 02/24/19 12:21 CGR [email or web address]) OT Summary Assessment and Plan Potential Rehabilitation Potential Fair Analytic Complexity at Evaluation Moderate Summary OT Impairments Pain,Strength,Balance, Functional Cognition, Functional Mobility,Grooming, Dressing,Toileting,Bathing, Toilet Transfers,Shower Transfers Progress Towards Goals Slow Progress due to Pain Assessment Summary Pt presents as a moderate complexity evaluation. Pt had difficulty with her mobility and endurance. Pt will need SNF upon discharge and is likely more appropriate for transfer to LTC vs discharge home given her previous baseline and recent hospitalization. Pt will benefit from OT services while hospitalized. Goals Self-Feeding Goal Independent Grooming Goal Independent Dressing Goal Independent Toileting Goal Independent Bathing Goal Independent Toilet Transfer Goal Independent Shower Transfer Goal Independent Days to Meet Goals 10 Frequency of Treatment Frequency Of Treatment Once a Day Treatment Plan OT Treatment Plan ADL Training,Functional Cognition Training,Functional Mobility,Patient/Family Education,Discharge Planning Other Treatment Recommendations and Next ADLs seated Treatment Focus Discharge Recommendations OT Discharge Recommendations SNF Rehab Home Equipment Needs TBD
--- NOTE | 2019-02-24 12:29 | PT.IIE ---
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 (02/22/19) Non-pressure chronic ulcer of unspecified part of left lower leg with unspecified severity (02/22/19) Surgery Performed Operation Date: 02/24/19 11:30 <No data on this case meets the specified criteria> Surgical History (Last Reviewed 02/24/19 @ 11:47 by Shelton Valdez MD) H/O umbilical hernia repair (Acute) Medical History (Last Reviewed 02/24/19 @ 11:47 by Shelton Valdez MD) Cellulitis (Inactive) Chronic venous hypertension (idiopathic) with ulcer and inflammation of left lower extremity (Inactive) Chronic venous hypertension (idiopathic) with ulcer and inflammation of right lower extremity (Inactive) Lymphedema of both lower extremities (Inactive) Morbid obesity (Acute) Stasis dermatitis (Acute) Wound of lower extremity (Acute) Physical Therapy Inpatient Evaluation/Re-Eval M1 PT/OT-IP Prior Functional Status Start: 02/23/19 08:01 Freq: NEEDED Status: Active Protocol: Document 02/24/19 11:53 CGR (Rec: 02/24/19 12:21 CGR [email or web address]) Medical Review Prior Functional Status Medical History Reviewed Yes Communication Pt is able to communicate verbally Mobility and Gait Pt states she was MOD I for short distances with a 4WW. Per CM note pt left [facility] in December ambulating 27 feet with a 4WW. Activities of Daily Living and IADL's Pt states she was IND in ADLs but did not do LB dressing. Social History Household Members children Living Arrangements House Number of Floors (Floors) One Floor Number of Stairs To Enter/Railing? ramp entry Home Environment Tub/Shower Home Equipment Four Wheel Walker,Manual Wheelchair,Tub Transfer Bench Employment Status Retired Additional Social History Comment Pt lives with her son who works whey department operator. Son provides transportation to wound care. Pt uses a w/c for community distances. M1 PT/OT-IP Prior Functional Status Start: 02/24/19 10:52 Freq: NEEDED Status: Active Protocol: Document 02/24/19 11:32 AW (Rec: 02/24/19 12:29 AW [id number]) Medical Review Prior Functional Status Medical History Reviewed Yes Diet/Fluid Consistency NPO Communication Able to make needs known Mobility and Gait Pt's mobility is extremely limited. She was recently hospitalized at this facility and discharged to [facility] for ~4 weeks of SNF rehab on 01/09/19. She reports that she was able to walk 27 feet with her 4WW when she left that episode of care. Activities of Daily Living and IADL's Pt reports independence with dressing, showering, toileting . EMR review indicates she is consistently encountered with poor hygiene, indicating a lack of self-care. Social History Household Members children Living Arrangements House Number of Floors (Floors) One Floor Number of Stairs To Enter/Railing? House has ramped entry, no stairs inside. Home Environment Standard Height Toilet,Tub/ Shower Home Equipment Four Wheel Walker,Tub Transfer Bench,Shower Seat with Backrest Additional Social History Comment Pt lilves with her sons, William and Seferino, who drive her to appointments and help to organize her medications. M2 PT-IP Current Condition Start: 02/23/19 08:01 Freq: NEEDED Status: Active Protocol: Document 02/24/19 11:32 AW (Rec: 02/24/19 12:29 AW [id number]) Physical Therapy Current Condition Current Condition Evaluation Date 02/24/19 Treatment Diagnosis sepsis, TRI, generalized weakness, difficulty in walking Onset Date 02/22/19 Precautions Other Precautions Pt NPO at time of eval in preparation for EGD. Weight Bearing Status Weight Bearing Status Full Weight Bearing M3 PT-IP Subjective Start: 02/23/19 08:01 Freq: NEEDED Status: Active Protocol: Document 02/24/19 11:32 AW (Rec: 02/24/19 12:29 AW [email or web address]) Subjective Physical Therapy Visit Type Type Initial Evaluation Visit Start Time 11:05 Visit Stop Time 11:50 Total Visit Minutes 45 Notes Pt seen with OT Number of TANK WAGON DRIVER Visits 0 Physical Therapy Visit Comments Patient Comments I hurt too much to move. Patient Goals Pt ultimately wishes to return to her home. Therapy Pain Assessment Pain When Pain Assessed During Mobility Pain Present Pain Present Pain Reported Location bilater leg pain Pain Behaviors Facial Grimacing,Moaning, Wincing Pain Management Techniques Elevation,Re-positioning, Timing of Activity with Medications M4 PT-IP Mobility and Gait Start: 02/23/19 08:01 Freq: NEEDED Status: Active Protocol: Document 02/24/19 11:32 AW (Rec: 02/24/19 12:29 AW [id number]) PT-Bed Mobility Assessment Rolling Type of Rolling Roll to Right Level of Assist Minimal Assistance,2 Person Assistance Supine to Sit Supine to Sit Maximum Assistance,2 Person Assistance,Head of Bed Elevated,Bedrails Sit to Supine Sit to Supine Moderate Assistance,2 Person Assistance Scooting Scooting to Edge of Bed Maximum Assistance Scooting Up and Down in Bed Maximum Assistance PT-Transfer Assessment Sit to and From Stand Sit to and from Stand Minimal Assistance,Moderate Assistance,2 Person Assistance ,Use of Upper Extremities Equipment Transfer Assistive Device Gait Belt,Front Wheeled Walker Orthotic/Prosthetic Devices or Brace: No Transfers Transfer Destination Bed,Chair Transfer Technique Stand Step Pivot Transfer Ability Level of Assist Minimal Assistance,2 Person Assistance,Use of Upper Extremities Comments Mobility Comments Pt required max assist x 2 for supine to sit transfer using bed rails, SHADE MAKER, and use of bed sheet to scoot to EOB. She was able to sit EOB with min assist x 2 and with hands on the bed rails for support. She completed sit to stand from bed surface and stand step transfer 2 feet to chair using FWW and min assist x 2. Pt had small bowel movement in standing and was able to stand with FWW for pericare and change of chair linens ~90 seconds with min assist x 1. Sit to stand from chair using FWW required mod assist x 2 due to lower surface and transfer back to bed was accomplished with min assist x 2. Pt was left in room with NAC in preparation for EGD. Gait Assessment Gait Gait Assistance Required: Minimum Assistance,2 Person Assist Distance (Feet) 2 Able to Maintain Weight Bearing Status Yes During Gait Assistive Devices Assistive Device Gait Belt,Front Wheeled Walker Orthotic/Prosthetic Devices or Brace: No Gait Deviations General Gait Pattern Antalgic,Decreased Stride Length,Decreased Feet Clearance,Flexed Trunk Factors Limiting Gait Function Factors Limiting Gait Function Decreased Activity Tolerance, Decreased Strength,Pain,Poor Balance,Poor Safety Awareness, Respiratory Distress Comments Gait Comments See mobility comments. Stair Climbing Assessment Comments Stair Climbing Comments Not assessed PT-Balance Assessment Sitting Balance and Reactions Static Sitting Balance Ability Fair Dynamic Sitting Balance Ability Poor Standing Balance and Reactions Static Standing Balance Ability Fair Dynamic Standing Balance Ability Poor Device Used FWW M5 PT-IP Objective Assessments Start: 02/23/19 08:01 Freq: NEEDED Status: Active Protocol: Document 02/24/19 11:32 AW (Rec: 02/24/19 12:29 AW [id number]) Orientation Orientation/Cognition Level of Alertness Lethargic Orientation Name,Month,Place,Situation Language Function Ability No Deficits Noted Safety Awareness Decreased Safety Awareness Memory Description No Deficits Noted Comments Pt presents as very sleepy but rousable. She is able to attend to tasks briefly. Gross Range of Motion Upper Extremity ROM Assessment Within Functional Limits Lower Extremity ROM Assessment Bilaterally Impaired Strength Upper Extremity Strength Assessment Bilaterally Impaired Shoulder 4-/5 Lower Extremity Strength Assessment Bilaterally Impaired Hip 3-/5 Knee 3+/5 Ankle 4-/5 Coordination Assessment Gross Coordination Gross Coordination Impaired Assessment Finger to Nose Test Minimal Impairment Sensation Assessment Sensation Gross Sensation Right LE Impaired,Left LE Impaired Light Touch Impaired Comments Sensation Comments Bilaterally impaired light touch sensation in stocking distribution M6 PT-IP Treatment Start: 02/23/19 08:01 Freq: NEEDED Status: Active Protocol: Document 02/24/19 11:32 AW (Rec: 02/24/19 12:29 AW [id number]) Physical Therapy Treatment Education Education Provided Precautions,Safety Other Treatments Other Treatment Performed Discussed PT plan of care, safe use of FWW, and likely discharge disposition M7 PT-IP Assessment and Plan Start: 02/23/19 08:01 Freq: NEEDED Status: Active Protocol: Document 02/24/19 11:32 AW (Rec: 02/24/19 12:29 AW [id number]) PT Summary Assessment and Plan Potential Rehabilitation Potential Fair Status of Condition at Evaluation Evolving Summary Impairments Pain,ROM,Strength,Balance, Sensation,Bed Mobility, Transfers,Gait,Activity Tolerance Assessment Summary Pt is a 78 yo woman with chronic venous stasis, history of BLE cellulitis. PLOF: Pt was hospitalized at this facility in December and discharged to [facility] for SNF rehab. At the end of that stay, she discharged to home and reports she was able to walk 27 feet with 4WW. CLOF: Pt required max assist x 2 for bed mobility and min to mod assist x 2 for transfers. She requires extra time for all mobility, moving very slowly and with complaints of increased pain. In the context of marked debility compared with her recent level of function, pt will require SNF rehab to regain strength and independence with functional mobility, reducing her risk of falls. She may also require long-term care placement in light of her questionable social situation and inability to provide her own care. Goals Bed Mobility Goal Minimal Assistance Transfer Goal Standby Assistance,Front Wheeled Walker Gait Goal Standby Assistance,Front Wheel Walker Gait Distance 27 Days to Meet Goals 15 Frequency of Treatment Frequency Of Treatment Once a Day Treatment Plan Physical Therapy Treatment Plan Bed Mobility Training,Transfer Training,Gait Training, Therapeutic Exercise,Balance Retraining,Discharge Planning, Hot or Cold Pack,Neuromuscular Re-ed,Coordination Retraining ,Manual Therapy Other Recommendations and Next Treatment bed mobility, transfers, Focus progress gait distance as tolerated Recommendations To Nursing Amount of Assist Needed 2 Person Assist Discharge Recommendations PT Discharge Recommendations SNF Rehab,[facility]AC
--- NOTE | 2019-02-24 12:39 | PC.NURSE ---
Day shift: Pt off unit for EDG at this time.
--- NOTE | 2019-02-24 13:13 | PM.OP.ENDO ---
Operative Date/Time/Diagnoses Date of procedure: 02/24/19 Time of procedure: 13:13 Pre-op diagnosis: Hematemesis Post-op diagnosis: same Procedure & Clinicians Study performed: Esophagoduodenoscopy Same procedure as scheduled: Yes Indications: 78-year-old female with coffee-ground emesis hemodynamically stable here for a EGD Surgeon: Shelton Valdez Procedure Notes SCOAP/Timeout: Performed Procedure in detail: Patient placed in left lateral decubitus position. Time out was performed. Procedural sedation was administered with Versed and Fentanyl. A bite block was placed. the scope was inserted into the mouth and advanced through the esophagus and into the stomach. The pylorus was intubated and the duodenum was normal. The scope was retroflexed within the stomach and there was no hiatal hernia. There were no ulcers in the stomach or duodenum but there was diffuse gastritis no active bleeding. Random gastric biopsies were taken. The Z line was at 30 cm from incisiors no clear esophagitis mostly washup clot from stomach. Random biospies were taken at the GE junction. Hemostasis was obsereved. Stomach was desufflated and scope removed. Patient tolerated procedure well. Sedation minutes: 8 Findings: gastritis Specimen(s): other (Gastric and GE junction biopsy) Complications: none Impression: Gastritis Post-procedure Recommendations: EGD in 6-8 weeks Plan for aftercare: Protonix 40 mg b.i.d. and Carafate okay for diet Disposition: Acute Care
--- NOTE | 2019-02-24 13:22 | PC.NURSE ---
Day shift: Pt back on AC unit. On3L NC at 97%. Pt tired. Denies any pain or discomfort. Bed alarm on. Call light in reach.
[2019-02-24] MEDS: fentaNYL 250 MCG/5 ML INJ IV (13:27)
[2019-02-24] MEDS: MIDAZOLAM 5 MG/5 ML VIAL IV (13:28)
--- NOTE | 2019-02-24 13:29 | SUR.OPER ---
PACU UNABLE TO RECEIVE PATIENT. REPORT CALLED TO ACUTE CARE RN. PATIENT TRANSPORTED TO ACUTE CARE. RN STAYED WITH PATIENT TO MONITOR VITALS.
--- NOTE | 2019-02-24 13:54 | DIET.PN ---
Dietary Progress Note Assessment: Dietary consult for Ms. Gomez r/t morbid obesity w/ Chronic Venous Stasis. She is admitted for LE edema w/ ulcer. Per previous visits she reports following no dietary restrictions and consumes large amounts of CHO containing sources including biscuits w/ honey, ham, lopes, potatoes, cream of wheat w/ br sugar, hot chocolate, and corn. She just had an EGD positive for gastritis. Possible discharge to SNF per nurse. HT: 165.1cm WT: 12 kg Adj BW: 85kg BMI: 45.9 (obese class III) MNA: 13 (normal) Chris: 17 Nutrition Diagnosis: Overweight/Obesity r/t excessive energy intake, not ready for diet/lifestyle change, physical inactivity aeb BMI more than normative standard for age and sex (obese class III), over consumption of high-fat and/or energy-dense food/beverage, infrequent physical activity. Interventions: 1. Discussed nutrition therapy for weight loss. 2. Provided meal plan for 2000 calorie diet. 3. Will add Wili (glutamine/arginine supplement) BID for wound healing support. Pt has expressed she does not care for Wili, but is aware of the benefits. 4. Provided information on importance of Wili w/ coupons for outpatient purchase. Diet Order: General EER: 2550cal @ 30 dolly/kg AdjBW 2049 dolly (500cal deficit/day for weight loss) Pro: 110-127 g/day @ 1.3-1.5g/kg AdjBW Monitoring/Evaluations: Wt, Diet Order Status, Wili BID
--- NOTE | 2019-02-24 18:19 | PM.PN.1 ---
Subjective Subjective Date Patient Seen: 02/24/19 Interval history: Tiffanie Gomez is a 78-year-old female with a past medical history significant for chronic venous insufficiency with venous stasis dermatitis, lymphedema, and recurrent cellulitis and venous stasis ulcerations status post recent debridement who presented to the ED via EMS following a a ground level fall with inability to get up. The patient is resting in bed and appears mildly uncomfortable. She had significant nausea this morning with coffee-ground emesis that was gastric occult blood positive. Hemodynamically stable with stable H&H. Requested general surgery to evaluate patient for possible EGD. She continues to endorse mild intermittent nausea. She denies leg pain today. Encouraged her to participate with PT and OT. The patient has a very deep crevice with her abdominal panniculus which appears infected and is nearly impossible for self-care. She continues to have pain when lifting panniculus to view the infection and continuing to place sheet and crevice to avoid excessive moisture. She is voiding via Parmar catheter without difficulty. Plan to remove Parmar catheter if patient will allow. She has not had a bowel movement since admission and a bowel regimen has been implemented. Her mobility is severely impaired due to morbid obesity and generalized weakness. Exam Vital Signs (past 8 hours): - 02/24/19 10:50 02/24/19 12:37 02/24/19 13:28 Temperature 98.0 F 97.8 F 97.3 F L Pulse Rate 115 H 69 116 H Respiratory Rate 20 15 15 Blood Pressure 128/74 147/77 H 110/69 Pulse Oximetry 100 96 98 02/24/19 13:58 02/24/19 14:28 02/24/19 16:01 Temperature 97.6 F 97.6 F 97.1 F L Pulse Rate 117 H 117 H 116 H Respiratory Rate 16 16 19 Blood Pressure 104/73 116/49 L 134/79 Pulse Oximetry 98 98 98 02/24/19 16:46 Temperature 97.4 F L Pulse Rate 115 H Respiratory Rate 16 Blood Pressure 132/76 Pulse Oximetry 115 H Oxygen Delivery Method Room Air Oxygen Flow Rate 3 Narrative Exam Narrative: General: Older morbidly obese female lying in bed and in no acute distress, appears chronically ill, well-developed, well-nourished, appropriately interactive. HEENT: Normocephalic, atraumatic. External ears without defect. Pupils equal, round, and reactive to light. Anicteric sclerae, moist conjunctivae, and no lid lag. Poor dentition. Neck: Supple with full range of motion. No jugular venous distension. No lymphadenopathy or thyromegaly. Cardiovascular: Heart sounds distant but appears to be regular rate and rhythm without murmurs, rubs, or gallops appreciated. Pulmonary: Clear to auscultation bilaterally without crackles, wheezes, or rhonchi. Normal respiratory effort with no use of accessory muscles. Abdomen: Soft, obese, bowel sounds present, nontender, nondistended. No hepatosplenomegaly or masses appreciated. Panniculus appears infected with significant erythema, moisture, and tenderness without purulent drainage. Extremities: No clubbing or cyanosis. Moderate bilateral lower extremity lymphedema with venous stasis dermatitis and Christos wraps covering chronic wounds C/D/I. Neurological: Cranial nerves grossly intact. Psychiatric: Irritable mood and flat affect. Alert and oriented to person and place. Patient has mild cognitive impairment versus dementia with short-term memory recall deficit. Objective Labs Result Diagrams: 02/24/19 08:00 02/24/19 08:00 Labs: Laboratory Results - last 24 hr 02/24/19 02/24/19 02/24/19 06:20 08:00 08:00 WBC 16.3 H RBC 5.12 Hgb 13.5 Hct 41.3 MCV 80.8 MCH 26.4 MCHC 32.6 RDW 15.9 H Plt Count 408 H Neut % (Auto) 91.2 H Lymph % (Auto) 2.3 L [place] % (Auto) 5.4 Eos % (Auto) 0.1 L Baso % (Auto) 1.0 Neut # (Auto) 15611 H Lymph # (Auto) 400 L [place] # (Auto) 900 Eos # (Auto) 0 Baso # (Auto) 200 H Sodium Potassium Chloride Carbon Dioxide BUN Creatinine Estimated GFR BUN/Creatinine Ratio Glucose Calcium Magnesium Procalcitonin 0.29 Gastric Fluid pH 4 H Gastric Occult Blood Positive H 02/24/19 08:00 WBC RBC Hgb Hct MCV MCH MCHC RDW Plt Count Neut % (Auto) Lymph % (Auto) [place] % (Auto) Eos % (Auto) Baso % (Auto) Neut # (Auto) Lymph # (Auto) [place] # (Auto) Eos # (Auto) Baso # (Auto) Sodium 138 Potassium 4.1 Chloride 105 Carbon Dioxide 25 BUN 74 H Creatinine 1.60 H Estimated GFR 31.3 L BUN/Creatinine Ratio 46.3 H Glucose 117 H Calcium 8.4 Magnesium 2.6 H Procalcitonin Gastric Fluid pH Gastric Occult Blood Assessment & Plan Assessment & Plan narrative: Tiffanie Gomez is a 78-year-old female with a past medical history significant for chronic venous insufficiency with venous stasis dermatitis, lymphedema, and recurrent cellulitis and venous stasis ulcerations status post recent debridement who presented to the ED via EMS following a a ground level fall with inability to get up. 1. Acute sepsis, present on admission. Resolved. -Sepsis criteria met including: Leukocytosis (WBC 19.1), tachycardic (HR 102), fluid responsive hypotension (BP 74/39), with organ dysfunction of TRI and altered mental status and infectious source cellulitis of abdominal panniculus. -Early goal-directed therapy met including: Broad-spectrum IV antibiotics and IV fluid resuscitation. 2. Acute cellulitis of abdominal panniculus, present on admission. Active. -Patient presented with generalized weakness and inability to stand up. -Initial WBC elevated at 19.1 and trending down now 16.3. Initial procalcitonin slightly elevated at 0.41 and trending down now 0.29. Lactate was normal at 1.0. Continue to trend WBC daily. -Patient previously had wound culture results including Staph, Alcaligenes, Pseudomonas and Proteus and patient has numerous allergies to antibiotics including: Vancomycin, clavulanic acid, amoxicillin, nafcillin and piperacillin. -Continue meropenem 1 g IV renally dosed at every 12 hours. -Continue wound care: with nystatin powder and absorbent sheet to prevent skin to skin contact and excessive moisture. 3. Acute kidney injury, present on admission. Resolving. -Likely multifactorial and secondary to prerenal azotemia from dehydration and poor PO intake, infection, and nephrotoxic medication of Lasix. -Initial creatinine 2.7. Baseline creatinine 0.7. Creatinine trending down now 1.6. -Received 2.7 L NS boluses total in the ED. Continued normal saline at 100 mL/hr until adequately hydrated then discontinued. -Avoid nephrotoxic agents. -Continue to monitor renal function daily. 4. Acute on chronic intermittent nausea now with coffee-ground emesis, possible GI bleed, likely present on admission. Active. -Patient has history of intermittent nausea and vomiting with episode of coffee-ground emesis this morning. -Continue Protonix 40 mg daily. -Consulted General surgery, Dr. Valdez, for possible evaluation for EGD. We appreciate his time in care of the patient. Patient is NPO. 5. Chronic venous insufficiency with stasis dermatitis, lymphedema, and chronically infected venous stasis ulcerations status post recent debridement, present on admission. Stable. -Patient previously had infected venous stasis ulcerations now status post recent debridement on 01/07/2019. The patient's has 3 wounds on the right ankle and lower leg and 1 wound on the posterior left lower leg for which all wounds appear to be healing well. -Continue wound care: Clean with normal saline, apply Silvadene ointment, cover with Telfa. patient with bilateral lower extremity edema that has improved since last admission -Patient is on furosemide 80 mg daily which has been held due to TRI. -Continue conservative treatment including: Apply leg wraps to lower extremities and elevate lower extremities above the level of the heart while in bed. 6. Morbid obesity, present on admission. Active. -BMI of 45.5. Patient has lost 3.5 kg from her previous hospitalization. -Patient has severely impaired mobility with minimal ambulation and lives with her son. APS has been contacted by ED. -Ordered dietitian consultation which is pending and unavailable on the weekend. -Ordered PT and OT evaluation and treatment, pending. 7. Failure to thrive and self neglect with mild cognitive impairment versus dementia, present on admission. Active. -Patient has very poor hygiene, has severely impaired mobility with minimal ambulation, and is unable to care for herself. The patient lives at home with her son who is away most of the day for work. -Patient is known to be resistant to medical interventions specifically physical and occupational therapies. She frequently reports that she is able to perform her ADLs on her own but is unable to reproduce the physical ability to perform ADLs during her previous hospitalizations. -Requested occupational therapy to perform cognitive assessment with [facility] when available. -[facility] has been contacted by ED. -Consulted [facility] for short and long-term care placement, as well as, [facility] referral. Disposition: Patient will undoubtedly need [facility] facility for continued wound management and physical rehabilitation in 1-2 days once infection has been adequately treated. Quality VTE Deep Vein Thrombosis/Pulmonary Embolism Present on Admission: No
--- NOTE | 2019-02-24 19:36 | PC.NURSE ---
Pt has had liquid stool, took suppository. She has wounds bilat buttocks in additional to multiple deep wounds to posterior side of L calf and anterior and posterior wounds to R calf. Cleaned and redressed with 4 x 4 and silver cream, Christos wrap. Both sides of her pannus are red and excoriated. Applied Nystatin and clean pillow cases. Her legs feet and ankles are edematous +2.
[2019-02-24] MEDS: SUCRALFATE 1 GM/10 ML ORAL SUSP PO (20:16)
[2019-02-24] MEDS: NYSTATIN POWDER 15GM 1 APPLIC TOP (20:17)
[2019-02-24] MEDS: SILVER SULFADIAZINE 1% CREAM 25 GM 1 APPLIC TOP (20:17)
[2019-02-24] MEDS: DOCUSATE 100 MG CAPSULE PO (20:17)
[2019-02-24] MEDS: PANTOPRAZOLE 40 MG TABLET PO (21:30)
[2019-02-25 00:01] VITALS: BP 111/88; PULSE 114; RESP 20; TEMP 35.9; O2SAT 95
[2019-02-25 04:49] VITALS: BP 107/70; PULSE 113; RESP 18; TEMP 36.2; O2SAT 94
[2019-02-25] MEDS: MEROPENEM 1 GM/50 ML PIGGYBACK IV ×2 (05:27→18:24)
[2019-02-25 05:31] LABS: Add Manual Diff / Slide Review NO; Basophils Absolute Auto 0 /uL (0-100); Basophils Percent Auto 0.3 % (0-2); Eosinophils Absolute Auto 100 /uL (0-450); Eosinophils Percent Auto 0.7 % (2-4); Hematocrit 38.9 % (36-46); Hemoglobin 12.5 g/dL (12.0-16.0); Lymphocytes Absolute Auto 600 /uL (1100-4500); Lymphocytes Percent Auto 4.2 % (25-40); Mean Corpuscular HGB Conc 32.1 % (30-36); Mean Corpuscular Hemoglobin 25.9 PG (26-34); Mean Corpuscular Volume 80.6 fL (80-100); Monocytes Absolute Auto 1000 /uL (0-900); Monocytes Percent Auto 7.4 % (3-14); Neutrophils Absolute Auto 11900 /uL (1500-7000); Neutrophils Percent Auto 87.4 % (50-75); Platelet Count 367 X10^3/uL (150-400); Red Blood Cell Count 4.82 X10^6/uL (4.0-5.2); Red Cell Distribution Width 15.9 % (11.6-14.8); White Blood Cell Count 13.6 X10^3/uL (4.5-11.0)
[2019-02-25 05:38] LABS: Alanine Aminotransferase 20 IU/L (<35); Albumin 2.7 g/dL (3.5-5.0); Albumin Globulin Ratio 0.8 (1.0-2.8); Alkaline Phosphatase 167 U/L (38-126); Aspartate Aminotransferase 62 IU/L (14-36); BUN Creatinine Ratio 43.8 (6-22); Bilirubin Total 0.4 mg/dL (0.2-1.3); Blood Urea Nitrogen 70 mg/dL (7-17); Calcium 8.2 mg/dL (8.4-10.2); Carbon Dioxide 25 mmol/L (22-32); Chloride 107 mmol/L (98-107); Estimated Glomerular Filt Rate 31.3 mL/min (>60); Globulin 3.3 g/dL (1.7-4.1); Glucose 115 mg/dL (80-110); HEMOLYSIS < 15 (0-50); Sodium 138 mmol/L (137-145)
[2019-02-25] MEDS: PANTOPRAZOLE 40 MG TABLET PO ×2 (06:09→22:04)
[2019-02-25] MEDS: SUCRALFATE 1 GM/10 ML ORAL SUSP PO ×4 (06:09→22:05)
--- NOTE | 2019-02-25 06:21 | PC.NURSE ---
Parmar catheter was removed at 0620 per MD order. Catheter tip intact with no complications of removal.
[2019-02-25 08:10] VITALS: BP 113/65; PULSE 106; RESP 18; TEMP 36.4; O2SAT 93
[2019-02-25] MEDS: HEPARIN 5,000 UNIT/ML VIAL 5000 UNIT SUBCUT ×2 (09:15→22:01)
[2019-02-25] MEDS: NYSTATIN POWDER 15GM 1 APPLIC TOP ×2 (09:16→22:02)
--- NOTE | 2019-02-25 10:56 | P.PN_ITS ---
Subjective Subjective Date Patient Seen: 02/25/19 Interval history: Tiffanie Gomez is a 78-year-old female with a past medical history significant for chronic venous insufficiency with venous stasis dermatitis, lymphedema, and recurrent cellulitis and venous stasis ulcerations status post recent debridement who presented to the ED via EMS following a a ground level fall with inability to get up. The patient is resting in bed and appears comfortable. She continues to be significantly deconditioned. I was present in the room when physical and occupational therapy were getting the patient up. It takes a significant amount of effort and is quite taxing to get the patient up out of bed and walking. She is only able to walk several feet before she fatigues. She has 2 small sacral decubitus stage II ulcers possibly due to pressure versus shear force. She has no complaints overall. She understands the necessity to continue wound care management both short and long-term and is agreeable to both. The Parmar catheter has been removed. She is voiding and eliminating without difficulty. Exam Vital Signs (past 8 hours): - 02/25/19 08:10 02/25/19 14:30 Temperature 97.6 F 97.6 F Pulse Rate 106 H 105 H Respiratory Rate 18 20 Blood Pressure 113/65 126/70 Pulse Oximetry 93 98 Oxygen Delivery Method Room Air Oxygen Flow Rate 0 Narrative Exam Narrative: General: Older morbidly obese female lying in bed and in no acute distress, appears chronically ill, well-developed, well-nourished, appropriately interactive. HEENT: Normocephalic, atraumatic. External ears without defect. Pupils equal, round, and reactive to light. Anicteric sclerae, moist conjunctivae, and no lid lag. Poor dentition. Neck: Supple with full range of motion. No jugular venous distension. No lymphadenopathy or thyromegaly. Cardiovascular: Heart sounds distant but appears to be regular rate and rhythm without murmurs, rubs, or gallops appreciated. Pulmonary: Clear to auscultation bilaterally without crackles, wheezes, or rhonchi. Normal respiratory effort with no use of accessory muscles. Abdomen: Soft, obese, bowel sounds present, nontender, nondistended. No hepatosplenomegaly or masses appreciated. Panniculus appears infected with significant erythema and tenderness improving and without purulent drainage. Extremities: No clubbing or cyanosis. Moderate bilateral lower extremity lymphedema with venous stasis dermatitis and Christos wraps covering chronic wounds C/D/I. Two small 2-3 cm sacral decubitus stage II ulcers that appear to be from pressure versus shear force. Neurological: Cranial nerves grossly intact. Psychiatric: Depressed mood and flat affect. Alert and oriented to person and place. Mild dementia with short-term memory recall deficit. Objective Labs Result Diagrams: 02/25/19 05:20 02/25/19 05:20 Labs: Laboratory Results - last 24 hr 02/22/19 02/25/19 02/25/19 14:32 05:20 05:20 WBC 13.6 H RBC 4.82 Hgb 12.5 Hct 38.9 MCV 80.6 MCH 25.9 L MCHC 32.1 RDW 15.9 H Plt Count 367 Neut % (Auto) 87.4 H Lymph % (Auto) 4.2 L [place] % (Auto) 7.4 Eos % (Auto) 0.7 L Baso % (Auto) 0.3 Neut # (Auto) 72257 H Lymph # (Auto) 600 L [place]th[place]omew # (Auto) 1000 H Eos # (Auto) 100 Baso # (Auto) 0 Sodium 138 Potassium 4.0 Chloride 107 Carbon Dioxide 25 BUN 70 H Creatinine 1.60 H Estimated GFR 31.3 L BUN/Creatinine Ratio 43.8 H Glucose 115 H Calcium 8.2 L Total Bilirubin 0.4 AST 62 H ALT 20 Alkaline Phosphatase 167 H Total Protein 6.0 L Albumin 2.7 L Globulin 3.3 Albumin/Globulin Ratio 0.8 L mecA-Methicil Res Gene Airline Pilot Assessment & Plan Assessment & Plan narrative: Tiffanie Gomez is a 78-year-old female with a past medical history significant for chronic venous insufficiency with venous stasis dermatitis, lymphedema, and recurrent cellulitis and venous stasis ulcerations status post recent debridement who presented to the ED via EMS following a a ground level fall with inability to get up. 1. Acute sepsis, present on admission. Resolved. -Sepsis criteria met including: Leukocytosis (WBC 19.1), tachycardic (HR 102), fluid responsive hypotension (BP 74/39), with organ dysfunction of TRI and altered mental status and infectious source cellulitis of abdominal panniculus. -Early goal-directed therapy met including: Broad-spectrum IV antibiotics and IV fluid resuscitation. 2. Acute cellulitis of abdominal panniculus, present on admission. Active. -Patient presented with generalized weakness and inability to stand up. -Initial WBC elevated at 19.1 and trending down now 13.6. Initial procalcitonin slightly elevated at 0.41 and trending down now 0.29. Lactate was normal at 1.0. Continue to trend WBC daily. -Patient previously had wound culture results including Staph, Alcaligenes, Pseudomonas and Proteus and patient has numerous allergies to antibiotics including: Vancomycin, clavulanic acid, amoxicillin, nafcillin and piperacillin. -Continue meropenem 1 g IV renally dosed at every 12 hours. -Continue wound care: with nystatin powder and inter-dry to prevent skin to skin contact and excessive moisture. 3. Acute kidney injury, present on admission. Resolving. -Likely multifactorial and secondary to prerenal azotemia from dehydration and poor PO intake, infection/sepsis, and nephrotoxic medication with Lasix and probable unintentional overuse. -Initial creatinine 2.7. Baseline creatinine 0.7. Creatinine trending down now 1.6. -Received 2.7 L NS boluses total in the ED. Plan to give another 1 L of normal saline. -Avoid nephrotoxic agents. -Continue to monitor renal function daily. 4. Acute on chronic intermittent nausea now with coffee-ground emesis, possible GI bleed, likely present on admission. Active. -Patient has history of intermittent nausea and vomiting with episode of coffee- ground emesis this morning. -Continue Protonix 40 mg daily. -Consulted General surgery, Dr. Valdez, who performed EGD which demonstrated diffuse gastritis. Recommended Protonix 40 mg twice daily and Carafate 4 times daily ACHS. We appreciate his time and care of the patient. 5. Chronic venous insufficiency with stasis dermatitis, lymphedema, and chronically infected venous stasis ulcerations status post recent debridement, present on admission. Stable. -Patient previously had infected venous stasis ulcerations now status post recent debridement on 01/07/2019. The patient's has 3 wounds on the right ankle and lower leg and 1 wound on the posterior left lower leg for which all wounds appear to be healing well. -Continue wound care: Clean with normal saline, apply Silvadene ointment, cover with Telfa. patient with bilateral lower extremity edema that has improved since last adm ission -Patient is on furosemide 80 mg daily which has been held due to TRI. -Continue conservative treatment including: Apply leg wraps to lower extremities and elevate lower extremities above the level of the heart while in bed. 6. Sacral decubitus stage II ulcerations, present on admission. Stable. -Patient was noted to have sacral decubitus ulcerations by nursing staff which were observed today and appeared to be stage II and possibly due to shear force versus pressure and do not appear infected. -Continue frequent turns. 7. Morbid obesity, present on admission. Active. -BMI of 45.5. Patient has lost 3.5 kg from her previous hospitalization. -Patient has severely impaired mobility with minimal ambulation and lives with her son. [facility]PS has been contacted by ED. -Consulted dietitian appreciate her recommendations. -Continue PT and OT evaluation and treatment, pending. 8. 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 Active. -Patient has very poor hygiene, has severely impaired mobility with minimal ambulation, and is unable to care for herself. The patient lives at home with her son who is away most of the day for work. -Patient is known to be resistant to medical interventions specifically physical and occupational therapies. She frequently reports that she is able to perform her ADLs on her own but is unable to reproduce the physical ability to perform ADLs during her previous hospitalizations. -Occupational therapy performed cognitive assessment with [facility] which the patient scored a +17/30 indicative of mild dementia. -[facility] has been contacted by ED. -Consulted [facility] for short and long-term care placement, as well as, [facility] referral. Disposition: [facility] for continued wound care management tomorrow. Quality VTE Deep Vein Thrombosis/Pulmonary Embolism Present on Admission: No
--- NOTE | 2019-02-25 11:16 | OT.IP.TRT ---
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 (02/22/19) Non-pressure chronic ulcer of unspecified part of left lower leg with unspecified severity (02/22/19) Surgery Performed Operation Date: 02/24/19 11:30 Actual Procedures p Esophagogastroduodenoscopy - Shelton Valdez MD Occupational Therapy Treatment Note M2 OT-IP Current Condition Start: 02/24/19 10:52 Freq: Status: Active Protocol: Document 02/24/19 11:53 CGR (Rec: 02/24/19 12:21 CGR [email or web address]) Occupational Therapy Current Condition Current Condition Evaluation Date 02/24/19 Treatment Diagnosis Fall and LE cellulitis Diagnosis Onset Date 02/22/19 M3 OT- IP Subjective and Pain Start: 02/24/19 10:52 Freq: Status: Active Protocol: Document 02/25/19 11:16 CCC (Rec: 02/25/19 13:01 CCC [email or web address]) OT- Subjective Occupational Therapy Visit Type Type Treatment Note Visit Start Time 11:16 Visit Stop Time 11:43 Total Visit Minutes 27 Occupational Therapy Visit Comments Patient Comments Pt needing encouragement to get up. M4 OT- IP ADL's Start: 02/24/19 10:52 Freq: Status: Active Protocol: Document 02/25/19 11:16 CCC (Rec: 02/25/19 13:01 CCC [email or web address]) OT ADL-Grooming General Evaluation Grooming Ability Standby Assistance Areas Needing Assistance Retrieving/Set-up of Grooming Items Comments OT Grooming Comments Pt able to brush her hair while sitting on the BSC. Pt states already brushed her teeth and washed her face earlier. OT ADL-Dressing General Eval Lower Body Dressing Ability Maximum Assistance Areas Needing Assistance Socks OT ADL-Toileting General Evaluation Toileting Ability Maximum Assistance Areas Needing Assistance Perform Perineal Hygiene Devices Toileting Assistive Devices Commode Comments OT Toileting Comments Pt needing MODA to help stand to FWW while professional nursing assistant able to her pericare needs. Pt insistent able to do her own at home. OT ADL-Bathing Comments OT Bathing Comments Not performed in this session. M5 OT- IP IADL's Start: 02/24/19 10:52 Freq: Status: Active Protocol: Document 02/24/19 11:53 CGR (Rec: 02/24/19 12:21 CGR [email or web address]) OT-Instrumental Activities of Daily Living Deficits IADL Deficits Identified Deficits Home Safety Awareness Awareness of Need for Assistance at Home Decreased Awareness Ability to Problem Solve Emergency Unable to Problem Solve Situations Medication Management Medication Management Comments Pt is unsafe to manage her medications at this time Money Management Money Management Comments Pt is unable to safely manage her money at this time. Meal Preparation Meal Preparation Comments Pt would not be able to safely manage meal prep at this time . Electroplater Electroplater Caregiver Provides Assist Driving Driving Comments Pt's son provides transportation. M6 OT- IP Functional Cognition Start: 02/24/19 10:52 Freq: Status: Active Protocol: Document 02/25/19 11:16 [facility] (Rec: 02/25/19 13:01 [facility] [email or web address]) Cognitive Factors Limiting Selfcare Function Cognitive Ability Level of Alertness Alert Patient Orientation Name,Age,Birthday,Month,Date, Year,Day of Week,Place, Situation Attention Span Ability Capable of Focused Attention, Capable of Sustained Attention Ability to Follow Commands Able to Follow One Step Commands Safety Awareness Underestimates Need for Assistance Problem Solving Ability Unable to Identify Errors, Needs Assist to Identify Solutions Cognitive Comments Cognitive Assessment Comments Pt able to follow simple commands. Pt insistent that she can properly care for herself. M7 OT- IP Mobility and Balance Start: 02/24/19 10:52 Freq: Status: Active Protocol: Document 02/25/19 11:16 [facility] (Rec: 02/25/19 13:01 [facility] [email or web address]) OT- Bed Mobility Assessment Supine to Sit Supine to Sit Assist Moderate Assistance,2 Person Assistance,Head of Bed Elevated Scooting Scooting to Edge of Bed Moderate Assistance,1 Person Assistance OT-Transfer Assessment Sit to and From Stand Sit to and from Stand Contact Guard Assistance, Moderate Assistance,1 Person Assistance Transfers Transfer Ability Minimal Assistance,Moderate Assistance,1 Person Assistance Technique Transfer Destination Bedside Commode,Chair Devices Transfer Assistive Devices Gait Belt,Front Wheeled Walker Orthotic/Prosthetic Devices or Brace: No Comments Mobility Comments Pt has more difficulty to more her left leg to the edge of the bed and needing assist to get trunk upright with HOB up. As pt fatigues needing more assist to come to stand MODA from [facility]. OT- Balance Assessment Sitting Balance and Reactions Static Sitting Balance Ability Good Standing Balance and Reactions Static Standing Balance Ability Fair M8 OT- IP Objective Assessments Start: 02/24/19 10:52 Freq: Status: Active Protocol: Document 02/24/19 11:53 CGR (Rec: 02/24/19 12:21 CGR [email or web address]) OT Gross Range of Motion Upper Extremity Range of Motion Assessment Within Functional Limits OT Strength Comments Strength Comments Formal MMT not performed, grossly 4/5 noted with activities. OT- Coordination Assessment Upper Extremity Finger to Nose Test Within Functional Limits Finger Tapping Test Within Functional Limits OT-Muscle Tone Assessment Muscle Tone WNL Yes OT Sensation Assessment Edema Edema Present Edema Comments Pt has significant edema to her BLE. M9 OT- IP Assessment and Plan Start: 02/24/19 10:52 Freq: Status: Active Protocol: Document 02/25/19 11:16 CCC (Rec: 02/25/19 13:01 CCC [email or web address]) OT Summary Assessment and Plan Potential Rehabilitation Potential Fair Analytic Complexity at Evaluation Moderate Summary OT Impairments Pain,Strength,Balance, Functional Cognition, Functional Mobility,Grooming, Dressing,Toileting,Bathing, Toilet Transfers,Shower Transfers Progress Towards Goals Slow Progress due to Pain,Slow Progress due to Activity Tolerance Assessment Summary Pt looking to go to skilled rehab today. Pt having difficulty to manage her own hygiene needs and would benefit from having higher care versus going home. Frequency of Treatment Frequency Of Treatment Once a Day Treatment Plan OT Treatment Plan ADL Training,Functional Cognition Training,Functional Mobility,Patient/Family Education,Discharge Planning Discharge Recommendations OT Discharge Recommendations SNF Rehab
--- NOTE | 2019-02-25 11:32 | PT.IPTN ---
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 (02/22/19) Non-pressure chronic ulcer of unspecified part of left lower leg with unspecified severity (02/22/19) Surgery Performed Operation Date: 02/24/19 11:30 Actual Procedures p Esophagogastroduodenoscopy - Shelton Valdez MD Physical Therapy Treatment Note M2 PT-IP Current Condition Start: 02/23/19 08:01 Freq: NEEDED Status: Active Protocol: Document 02/24/19 11:32 AW (Rec: 02/24/19 12:29 AW [id number]) Physical Therapy Current Condition Current Condition Evaluation Date 02/24/19 Treatment Diagnosis sepsis, TRI, generalized weakness, difficulty in walking Onset Date 02/22/19 Precautions Other Precautions Pt NPO at time of eval in preparation for EGD. Weight Bearing Status Weight Bearing Status Full Weight Bearing M3 PT-IP Subjective Start: 02/23/19 08:01 Freq: NEEDED Status: Active Protocol: Document 02/25/19 11:16 CLB (Rec: 02/25/19 12:10 CLB [id number]) Subjective Physical Therapy Visit Type Type Treatment Note Visit Start Time 11:16 Visit Stop Time 11:32 Total Visit Minutes 16 Notes Co-treated with OTDr Miranda present Number of WILD ANIMAL CARETAKER Visits 1 Physical Therapy Visit Comments Patient Comments Pt reluctantly agreed to get up. Therapy Pain Assessment Pain When Pain Assessed During Mobility Pain Present Pain Present Pain Reported Location bilater leg pain Pain Behaviors Facial Grimacing,Moaning, Wincing Pain Management Techniques Elevation,Re-positioning, Timing of Activity with Medications M4 PT-IP Mobility and Gait Start: 02/23/19 08:01 Freq: NEEDED Status: Active Protocol: Document 02/25/19 11:16 CLB (Rec: 02/25/19 12:10 CLB [id number]) PT-Bed Mobility Assessment Rolling Type of Rolling Roll to Right Level of Assist Minimal Assistance,2 Person Assistance Supine to Sit Supine to Sit Moderate Assistance,2 Person Assistance,Head of Bed Elevated,Bedrails Scooting Scooting to Edge of Bed Moderate Assistance PT-Transfer Assessment Sit to and From Stand Sit to and from Stand Contact Guard Assistance,1 Person Assistance,Use of Upper Extremities Equipment Transfer Assistive Device Gait Belt,Front Wheeled Walker Orthotic/Prosthetic Devices or Brace: No Transfers Transfer Destination Bedside Commode Transfer Technique Stand Step Pivot Transfer Ability Level of Assist Minimal Assistance,1 Person Assistance,Use of Upper Extremities Comments Mobility Comments Pt required Mod A x2 for bed mobility and CGA sit-stand from bed and stand to sit to BSC. Pt was left on BSC with OT present. Gait Assessment Gait Gait Assistance Required: Minimum Assistance,1 Person Assist Distance (Feet) 10 Able to Maintain Weight Bearing Status Yes During Gait Assistive Devices Assistive Device Gait Belt,Front Wheeled Walker Orthotic/Prosthetic Devices or Brace: No Gait Deviations General Gait Pattern Antalgic,Decreased Stride Length,Decreased Feet Clearance,Flexed Trunk Factors Limiting Gait Function Factors Limiting Gait Function Decreased Activity Tolerance, Decreased Strength,Pain,Poor Balance,Poor Safety Awareness, Respiratory Distress Comments Gait Comments Pt stood at EOB for ~1 minute then ambulate ~10ft around bed to BSC. Stair Climbing Assessment Comments Stair Climbing Comments Not assessed PT-Balance Assessment Sitting Balance and Reactions Static Sitting Balance Ability Fair Dynamic Sitting Balance Ability Poor Standing Balance and Reactions Static Standing Balance Ability Fair Dynamic Standing Balance Ability Poor Device Used FWW M5 PT-IP Objective Assessments Start: 02/23/19 08:01 Freq: NEEDED Status: Active Protocol: Document 02/24/19 11:32 AW (Rec: 02/24/19 12:29 AW [id number]) Orientation Orientation/Cognition Level of Alertness Lethargic Orientation Name,Month,Place,Situation Language Function Ability No Deficits Noted Safety Awareness Decreased Safety Awareness Memory Description No Deficits Noted Comments Pt presents as very sleepy but rousable. She is able to attend to tasks briefly. Gross Range of Motion Upper Extremity ROM Assessment Within Functional Limits Lower Extremity ROM Assessment Bilaterally Impaired Strength Upper Extremity Strength Assessment Bilaterally Impaired Shoulder 4-/5 Lower Extremity Strength Assessment Bilaterally Impaired Hip 3-/5 Knee 3+/5 Ankle 4-/5 Coordination Assessment Gross Coordination Gross Coordination Impaired Assessment Finger to Nose Test Minimal Impairment Sensation Assessment Sensation Gross Sensation Right LE Impaired,Left LE Impaired Light Touch Impaired Comments Sensation Comments Bilaterally impaired light touch sensation in stocking distribution M6 PT-IP Treatment Start: 02/23/19 08:01 Freq: NEEDED Status: Active Protocol: Document 02/24/19 11:32 AW (Rec: 02/24/19 12:29 AW [id number]) Physical Therapy Treatment Education Education Provided Precautions,Safety Other Treatments Other Treatment Performed Discussed PT plan of care, safe use of FWW, and likely discharge disposition M7 PT-IP Assessment and Plan Start: 02/23/19 08:01 Freq: NEEDED Status: Active Protocol: Document 02/25/19 11:16 CLB (Rec: 02/25/19 12:10 CLB [id number]) PT Summary Assessment and Plan Potential Rehabilitation Potential Fair Status of Condition at Evaluation Evolving Summary Impairments Pain,ROM,Strength,Balance, Sensation,Bed Mobility, Transfers,Gait,Activity Tolerance Assessment Summary Pt required encourage to get up, pt was able to lift her legs to assist with donning socks. Pt was then able to move her legs off the bed with great effert and the need for rest breaks due to fatigue. Pt required Mod A to scoot to EOB using draw sheet and pt pushing with hands on bed to assist. Pt stood CGA from bed using UE's and FWW. Pt was able to stand for ~1 minute during inspection of posterior bed sores. Pt then ambulated~ 10ft to [facility]. Pt will require SNF rehab to for strengthening and independence with functional mobility. She may also require long-term care placement in light of her questionable social situation and inability to provide her own care. Goals Bed Mobility Goal Minimal Assistance Transfer Goal Standby Assistance,Front Wheeled Walker Gait Goal Standby Assistance,Front Wheel Walker Gait Distance 27 Days to Meet Goals 15 Frequency of Treatment Frequency Of Treatment Once a Day Treatment Plan Physical Therapy Treatment Plan Bed Mobility Training,Transfer Training,Gait Training, Therapeutic Exercise,Balance Retraining,Discharge Planning, Hot or Cold Pack,Neuromuscular Re-ed,Coordination Retraining ,Manual Therapy Other Recommendations and Next Treatment bed mobility, transfers, Focus progress gait distance as tolerated Recommendations To Nursing Amount of Assist Needed 2 Person Assist Discharge Recommendations PT Discharge Recommendations SNF Rehab,[facility]
[2019-02-25] MEDS: SILVER SULFADIAZINE 1% CREAM 25 GM 1 APPLIC TOP ×2 (13:50→22:02)
[2019-02-25 14:30] VITALS: BP 126/70; PULSE 105; RESP 20; TEMP 36.4; O2SAT 98
--- NOTE | 2019-02-25 15:08 | CM.DPC ---
DCP/continued: Received notification in AM rounds from Dr. Miranda that patient will be medically stable for discharge within the next 24hrs. Placed call to [facility] spoke with Jessika. They are unsure if they can meet patient's needs? Therefore, VOLTAGE TESTER and Dr. Miranda met with patient to discuss d/c options. Patient reports that she is agreeable to SNF stay. Dr. Miranda notified patient that she will need ongoing wound care and potential placement. Patient appears to understand and agreeable. In addition, patient provided VOLTAGE TESTER with permission to speak with her family (sons and daughters) re: planning. Referral sent to [facility], [facility], and [facility]. Received return phone call from [facility] indicating they cannot accept. Amy at [facility] reports that they can accept but will need to order special DME for patient's weight and wounds. Dr. Miranda updated and d/c anticipated for tomorrow 02-26-19 via BLS. ULICES/Teetee calling to notify family of above. P: [facility] via BLS transport. HEATHER Nielsen
[2019-02-25 15:35] VITALS: BP 114/58; PULSE 104; RESP 18; TEMP 36; O2SAT 98
[2019-02-25] MEDS: SODIUM CHLORIDE 0.9% 1,000 ML 125 ML IV (17:06)
[2019-02-25 19:46] VITALS: BP 126/68; PULSE 97; RESP 18; TEMP 36.6; O2SAT 100
--- NOTE | 2019-02-25 20:01 | CM.DPC ---
DCP continued: CM/RN contacted patients daughter Kate Paris at [phone]. CM/RN explained role and disscussed D/C plan to [facility] tomorrow. Patients daughter stated understanding and asked CM/RN why the patient was going to [facility] vs [facility]? CM/RN explained that [facility] was willing to accept patient and has the resources to provide the needed wound care and possible help with predatory animal exterminator placement options for patient when done at SNF. CM gave the admission phone number for [facility] to patients daughter so she will be able to contact them in the morning 02/26/2019. Patients daughter stated understanding. [facility] copy was given to No to scan and so was a copy of the Signed BLS form. Patient will need transport set up in the AM once CM department has a time when [facility] can accept patient. KAMAR/CM department to F/U in the morning 02/26/2019 to finish D/C planning. Teetee Madera RN
[2019-02-25] MEDS: DOCUSATE 100 MG CAPSULE PO (22:01)
--- NOTE | 2019-02-25 23:35 | PC.NURSE ---
Joyce shift note: Received patient from PACU S/P left knee washout by Dr. Dangelo. Hemovac with scant drainage. IVF initiated. Oriented to room, environment, and plan of care.
--- NOTE | 2019-02-25 23:39 | PC.NURSE ---
Joyce shift note: Dressing change performed this shift as ordered, nicole wrap reapplied, tolerated procedure well. BLE elevated above hear level. Repositioning every 2 hours, patient will assist with repositioning when possible.
[2019-02-26 01:00] VITALS: BP 135/70; PULSE 106; RESP 20; TEMP 36.4; O2SAT 96
[2019-02-26] MEDS: TRAMADOL 50 MG TABLET PO (03:25)
[2019-02-26 06:00] VITALS: BP 139/63; PULSE 103; RESP 21; TEMP 36.6; O2SAT 95
[2019-02-26] MEDS: SUCRALFATE 1 GM/10 ML ORAL SUSP PO ×2 (06:23→11:19)
[2019-02-26] MEDS: PANTOPRAZOLE 40 MG TABLET PO (06:24)
[2019-02-26] MEDS: MEROPENEM 1 GM/50 ML PIGGYBACK IV (06:25)
[2019-02-26 06:29] LABS: Add Manual Diff / Slide Review NO; Basophils Absolute Auto 0 /uL (0-100); Basophils Percent Auto 0.2 % (0-2); Eosinophils Absolute Auto 200 /uL (0-450); Eosinophils Percent Auto 1.6 % (2-4); Hemoglobin 12.2 g/dL (12.0-16.0); Lymphocytes Absolute Auto 600 /uL (1100-4500); Lymphocytes Percent Auto 4.9 % (25-40); Mean Corpuscular HGB Conc 32.2 % (30-36); Mean Corpuscular Hemoglobin 25.9 PG (26-34); Mean Corpuscular Volume 80.5 fL (80-100); Monocytes Absolute Auto 1000 /uL (0-900); Monocytes Percent Auto 7.5 % (3-14); Neutrophils Absolute Auto 10900 /uL (1500-7000); Neutrophils Percent Auto 85.8 % (50-75); Platelet Count 353 X10^3/uL (150-400); Red Blood Cell Count 4.72 X10^6/uL (4.0-5.2); Red Cell Distribution Width 16.3 % (11.6-14.8); White Blood Cell Count 12.7 X10^3/uL (4.5-11.0)
[2019-02-26 06:35] LABS: BUN Creatinine Ratio 43.1 (6-22); Blood Urea Nitrogen 56 mg/dL (7-17); Carbon Dioxide 26 mmol/L (22-32); Chloride 110 mmol/L (98-107); Estimated Glomerular Filt Rate 39.7 mL/min (>60); Glucose 88 mg/dL (80-110); HEMOLYSIS < 15 (0-50); Sodium 140 mmol/L (137-145)
[2019-02-26 07:40] VITALS: BP 127/77; PULSE 104; RESP 20; TEMP 36.5; O2SAT 96
--- NOTE | 2019-02-26 08:35 | P.DS_ITS ---
History of Present Illness History of Present Illness Date Patient Seen: 02/22/19 Chief complaint: Pain/weakness Narrative: Written by Dc CHOE: Ms. Tiffanie Gomez is a 78-year-old female patient with a history significant chronic venous hypertension and bilateral lower extremity edema, venous stasis dermatitis and recurrent ulcerations and cellulitis who presents to the emergency department via EMS following a fall today while ambulating with her walker stating her legs gave out. Upon arrival of medics patient was found o have general weakness and altered mental status. Patient continues to have chronic bilateral lower extremity edema with wounds that are now clean and appear healing without discharge following her recent admission for treatment of cellulitis and wound debridement on 01/06/2019. Today the patient has rash erythema and warmth in her pannus fold with an open wound. Patient states she was in good health yesterday. The patient denies headaches or dizziness, nasal congestion or sore throat, has no chest pain or palpitations, shortness of breath cough or wheeze. She denies abdominal pain nausea vomiting, diarrhea or constipation. She is able to ambulate with a walker around her home and uses a wheelchair in the community. Upon arrival to the ER the patient was found to be afebrile with temperature 96.9?, in sinus tachycardia at 102, blood pressure 119/65, respirations 19 saturating 97% on room air. Upon arrival the patient was found to be altered from baseline. Chest x-ray is obtained finding no acute cardiopulmonary pathology. On laboratory analysis the patient has leukocytosis with white count of 19.1, hemoglobin of 14.6 and hematocrit 45.9 with platelets of 451. Neutrophils are elevated 91.9%. On chemistries she has a slightly elevated potassium at 5.2 and a BUN of 94 with a creatinine of 2.7 (see baseline creatinine 0.7). Her magnesium is 2.8. She has a lactic acid of 1.0 and procalcitonin 0.41. Her LFTs are within normal limits except for an elevated alkaline phosphatase at 217. Her PT is 13.7 with a PTT of 30 and an INR of 1.2. Total CK is 75 and troponin is less than 0.012. Screening urinalysis was obtained in the emergency department which appeared negative for infection. The ER was unable to establish IV access and a PICC line was inserted. The patient is admitted to the medicine service with sepsis and panniculitis. Discharge Providers Provider Date of admission: 02/22/19 16:37 Discharge Date: 02/26/19 Primary care physician: Arya Beyer MD Consults: 02/22/19 15:33 [place] [facility] [place] Lab Technician Stat Comment: middle or intermediate school principal care facility will be needed 02/22/19 16:34 Consult After Hours PICC Line RN Stat Comment: 02/22/19 20:09 Consult to Dietitian, Adult Routine Comment: Reason For Exam: morbid obesity 02/22/19 20:11 Consult to Physical Therapy Evaluate & Treat Comment: Sepsis, gen weakness, debilitated, morbid obesity Physician Instructions: Evaluate and Treat 02/23/19 00:40 Consult to Occupational Therapy Evaluate & Treat Comment: Sepsis, gen weakness, debilitated, morbid obesity Physician Instructions: Evaluate and treat 02/23/19 07:23 [place] [facility] [place] Lab Techn[place] Routine Comment: INSTITUTIONAL CUSTODIAN Consult: APS/CPS Crisis Referral 02/24/19 11:05 Consult to General Surgery Routine Comment: Consulting Provider: Shelton Valdez Reason for consultation: coffee ground emesis, heme positive, intractable nausea Has provider been notified: Yes Discharge provider: Zaida Miranda DO Summary Hospital Course Discharge Diagnosis: 1. Acute sepsis, present on admission. Resolved. 2. Acute cellulitis of abdominal panniculus, present on admission. Resolving. 3. Acute kidney injury, present on admission. Resolving. 4. Acute gastritis, likely present on admission. Resolving. 5. Chronic venous insufficiency with stasis dermatitis, lymphedema, and chronically infected venous stasis ulcerations status post recent debridement, present on admission. Stable. 6. Sacral decubitus stage II ulcerations, present on admission. Stable. 7. Morbid obesity, present on admission. Stable. 8. 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 Active. Hospital Course: Tiffanie Gomez is a 78-year-old female with a past medical history significant for chronic venous insufficiency with venous stasis dermatitis, lymphedema, and recurrent cellulitis and venous stasis ulcerations status post recent debridement who presented to the ED via EMS following a a ground level fall with inability to get up. 1. Acute sepsis, present on admission. Resolved. -Sepsis criteria met including: Leukocytosis (WBC 19.1), tachycardic (HR 102), fluid responsive hypotension (BP 74/39), with organ dysfunction of TRI and altered mental status and infectious source cellulitis of abdominal panniculus. -Early goal-directed therapy met including: Broad-spectrum IV antibiotics and IV fluid resuscitation. 2. Acute cellulitis of abdominal panniculus, present on admission. Resolving. -Patient presented with generalized weakness and inability to stand up. -Initial WBC elevated at 19.1 and trending down now 12.7. Initial procalcitonin slightly elevated at 0.41 and trending down now 0.29. Lactate was normal at 1.0. Continued to trend WBC daily. -Patient previously had wound culture results including Staph, Alcaligenes, Pseudomonas and Proteus and patient has numerous allergies to antibiotics including: Vancomycin, clavulanic acid, amoxicillin, nafcillin and piperacillin. -Continued meropenem 1 g IV renally dosed at every 12 hours for 10 days to stop on 03/04/2019 after morning dose. -Continued wound care: with nystatin powder and inter-dry which is antimicrobial and prevents skin to skin contact and excessive moisture. 3. Acute kidney injury, present on admission. Resolving. -Likely multifactorial and secondary to prerenal azotemia from dehydration and poor PO intake, infection/sepsis, and nephrotoxic medication with furosemide and probable unintentional overuse. -Initial creatinine 2.7. Baseline creatinine 0.7. Creatinine trending down now 1.6. -Received 2.7 L NS boluses total in the ED. Continued IV fluids until adequately hydrated then discontinued -Avoided nephrotoxic agents. Discontinued furosemide for now. -Continued to monitor renal function daily. 4. Acute gastritis, likely present on admission. Resolving. -Patient has history of intermittent nausea and vomiting with 1 episode of coffee-ground emesis. -Consulted General surgery, Dr. Valdez, who performed EGD which demonstrated diffuse gastritis. Recommended Protonix 40 mg twice daily x4 weeks then 40 mg daily thereafter and Carafate 4 times daily ACHS x2 weeks. We appreciate his time and care of the patient. 5. Chronic venous insufficiency with stasis dermatitis, lymphedema, and c hronically infected venous stasis ulcerations status post recent debridement, present on admission. Stable. -Patient previously had infected venous stasis ulcerations now status post recent debridement on 01/07/2019. The patient's has 3 wounds on the right ankle and lower leg and 1 wound on the posterior left lower leg for which all wounds appear to be healing well. -Continued wound care: Clean with normal saline, apply Silvadene ointment, cover with Telfa. patient with bilateral lower extremity edema that has improved since last admission -Patient is on furosemide 80 mg daily which has been discontinued for now due to TRI as above. -Continued conservative treatment including: Apply leg wraps to lower extremities and elevate lower extremities above the level of the heart while in bed. 6. Sacral decubitus stage II ulcerations, present on admission. Stable. -Patient was noted to have sacral decubitus ulcerations by nursing staff which were observed and appeared to be stage II and possibly due to shear force versus pressure and do not appear infected. -Continued frequent turns and offloading. 7. Morbid obesity, present on admission. Stable. -BMI of 45.5. Patient has lost 3.5 kg from her previous hospitalization. -Patient has severely impaired mobility with minimal ambulation and lives with her son. APS has been contacted by ED. -Consulted dietitian appreciate her recommendations. -Continued PT and OT evaluation and treatment. 8. 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 Active. -Patient has very poor hygiene, has severely impaired mobility with minimal ambulation, and is unable to care for herself. The patient lives at home with her son who is away most of the day for work. -Patient is known to be resistant to medical interventions specifically physical and occupational therapies. She frequently reports that she is able to perform her ADLs on her own but is unable to reproduce the physical ability to perform ADLs during her previous hospitalizations. -Occupational therapy performed cognitive assessment with SLUMS which the patient scored a +17/30 indicative of mild dementia. -APS has been contacted by ED. -Consulted INSTITUTIONAL CUSTODIAN for short and long-term care placement, as well as, APS referral. We appreciate her time and care of the patient. Exam Vital Signs (past 8 hours): - 02/25/19 04:49 02/25/19 08:10 Temperature 97.1 F L 97.6 F Pulse Rate 113 H 106 H Respiratory Rate 18 18 Blood Pressure 107/70 113/65 Pulse Oximetry 94 93 Oxygen Delivery Method Room Air Oxygen Flow Rate 0 Narrative Exam Narrative: General: Older morbidly obese female lying in bed and in no acute distress, appears chronically ill, lethargic but otherwise appropriately interactive. HEENT: Normocephalic, atraumatic. External ears without defect. Pupils equal, round, and reactive to light. Anicteric sclerae, moist conjunctivae, and no lid lag. Poor dentition. Neck: Supple with full range of motion. No jugular venous distension. No lymphadenopathy or thyromegaly. Cardiovascular: Heart sounds distant but appears to be regular rate and rhythm without murmurs, rubs, or gallops appreciated. Pulmonary: Clear to auscultation bilaterally without crackles, wheezes, or rhonchi. Normal respiratory effort with no use of accessory muscles. Abdomen: Soft, obese, bowel sounds present, nontender, nondistended. No hepatosplenomegaly or masses appreciated. Panniculus appears infected with significant erythema and tenderness which is improving and without purulent drainage. Extremities: No clubbing or cyanosis. Moderate bilateral lower extremity lymphedema with venous stasis dermatitis and Christos wraps covering chronic wounds C/D/I. Two small 2-3 cm sacral decubitus stage II ulcers that appear to be from pressure versus shear force. Neurological: Cranial nerves grossly intact. Psychiatric: Depressed mood and flat affect. Alert and oriented to person and place. Mild dementia with short-term memory recall deficit. Objective Labs Result Diagrams: 02/26/19 06:15 02/26/19 06:15 Labs: Laboratory Results - last 24 hr 02/22/19 02/25/19 02/25/19 14:32 05:20 05:20 WBC 13.6 H RBC 4.82 Hgb 12.5 Hct 38.9 MCV 80.6 MCH 25.9 L MCHC 32.1 RDW 15.9 H Plt Count 367 Neut % (Auto) 87.4 H Lymph % (Auto) 4.2 L [place] % (Auto) 7.4 Eos % (Auto) 0.7 L Baso % (Auto) 0.3 Neut # (Auto) 15340 H Lymph # (Auto) 600 L [place] # (Auto) 1000 H Eos # (Auto) 100 Baso # (Auto) 0 Sodium 138 Potassium 4.0 Chloride 107 Carbon Dioxide 25 BUN 70 H Creatinine 1.60 H Estimated GFR 31.3 L BUN/Creatinine Ratio 43.8 H Glucose 115 H Calcium 8.2 L Total Bilirubin 0.4 AST 62 H ALT 20 Alkaline Phosphatase 167 H Total Protein 6.0 L Albumin 2.7 L Globulin 3.3 Albumin/Globulin Ratio 0.8 L mecA-Methicil Res Gene Paper Handler Discharge Plan Discharge Plan Patient Disposition: SNF Discharge Med Rec/Prescriptions Prescriptions: New silver sulfadiazine [Silvadene] 1 % Cream 1 applic topical BID Qty: 1000 RF: 0 sucralfate 100 mg/mL Suspension 1 gram PO ACHS Qty: 420 RF: 0 bisacodyl 10 mg Suppository 10 mg VT DAILY PRN (Reason: Constipation) Qty: 10 RF: 0 pantoprazole 40 mg Tablet,Delayed Release (Dr/Ec) 40 mg PO 0700,2100 Qty: 60 RF: 0 docusate sodium [DOK] 100 mg Capsule 100 mg PO BID Qty: 60 RF: 0 meropenem-0.9% sodium chloride 1 gram/50 mL Piggyback 1 gm IV Q12H 2 Days RF: 0 meropenem 1 gram recon soln 1 gram IV Q12H 7 Days RF: 0 Continued acetaminophen 650 MG tablet extended release 650 mg PO Q6HP PRN (Reason: Pain (Scale Score 1-3)) Qty: 0 RF: 0 furosemide [Lasix] 80 MG tablet 80 mg PO QDAY Qty: 30 RF: 11 alendronate 70 mg tablet 70 mg PO QWEEK RF: 0 polyethylene glycol 3350 17 gram Powder In Packet 17 gm PO DAILY Qty: 1 RF: 0 tramadol 50 mg Tablet 50 mg PO QID PRN (Reason: Pain, Moderate (4-6)) Qty: 20 RF: 0 nystatin [Nystop] 100,000 unit/gram Powder 1 applic topical BID Qty: 15 RF: 0 docusate sodium [DOK] 100 mg Capsule 100 mg PO BID PRN (Reason: Constipation) Qty: 60 RF: 0 Follow up/Referrals: Arya Beyer MD [Primary Care Provider] - Discharge Health Status Brief summary of current health status: Tiffanie Gomez is a 78-year-old female with a past medical history significant for chronic venous insufficiency with venous stasis dermatitis, lymphedema, and recurrent cellulitis and venous stasis ulcerations status post recent debridement who presented to the ED via EMS following a a ground level fall with inability to get up and was found to be septic with cellulitis of her panniculus. Patient has had several different bacteria with different resistance patterns grow from skin on lower extremity wounds and has multiple antibiotic allergies therefore she has been on meropenem 1 g every 12 hours r enally dosed due to acute kidney injury. The patient has significant debility with generalized weakness, failure to thrive and self neglect, with multiple wounds throughout body including bilateral lower extremity, sacral decubitus stage II ulcers, and now infected panniculus. Patient needs continued fci rehabilitation with physical and occupational therapy, as well as, long- term chronic wound management. Multidrug resistant organism: MRSA Provider Discharge Instructions Diet: Low-fat, Low-sodium and Low-cholesterol Skin/Wound/Dressing Care Other wound treatment: Wound care to panniculus: Interdry and nystatin powder Wound care to lower extremities: Clean with normal saline, apply Silvadene ointment, cover with Telfa. Wrap with Christos wraps and elevate legs above level of heart at all times while in bed. Special Rehabilitation Services Rehab type: Physical therapy and Occupational therapy Discharge Data Primary Care Provider: Arya Beyer VTE Deep Vein Thrombosis/Pulmonary Embolism Present on Admission: No
[2019-02-26] MEDS: SILVER SULFADIAZINE 1% CREAM 25 GM 1 APPLIC TOP (08:53)
[2019-02-26] MEDS: SODIUM CHLORIDE 0.9% 1,000 ML 1000 ML IV (08:54)
[2019-02-26] MEDS: ACETAMINOPHEN 325 MG TABLET 650 MG PO (08:58)
[2019-02-26] MEDS: HEPARIN 5,000 UNIT/ML VIAL 5000 UNIT SUBCUT (08:59)
[2019-02-26] MEDS: NYSTATIN POWDER 15GM 1 APPLIC TOP (08:59)
--- NOTE | 2019-02-26 10:23 | PC.NURSE ---
Addendum entered by Larissa Delgado R.N. 02/26/19 12:05: TSF - prior to tsf, bed bath admin, groin, pannus area cleaned and dried, belongings packed, including clothing and cruz, packet provided to ambul crew, tsf to eliza and report called to Sheila ESTEVEZ at [facility] [phone]. Addendum entered by Larissa Delgado R.N. 02/26/19 10:30: GI - discussed bm and pt reports last night and declines stool softener or miralax this am. Original Note: AM NOTE - pt is alert, req bed stoner, voided, pericare performed, excoriated skin edith abd skin folds and groin, has intradry in folds, barrier cream to excoriation edith buttock area , edith dusky le w/nicole wraps, 2+ pedal edema, new order rec'd and 1l NS bolus admin
[2019-02-26 11:25] VITALS: BP 118/58; PULSE 104; RESP 16; TEMP 36.4; O2SAT 96
--- NOTE | 2019-02-26 11:48 | CM.DPNOTE ---
DC Note: DC order completed, med list signed and PASRR updated to include newly prescribed Prozac, Amy at [facility] made aware. No [facility], faxed all completed DC ppk to [facility] and BLS was arranged for approx 1100 p/u, RN Larissa and RN Coordinator Trang made aware and agreeable. Met w/pt, reviewed IMM, pt aware and agreeable to DCP and verbal agreement documented on IMM. P: DC to [facility] via BLS today. Of note, upon review of chart today, saw that acute care RN completed APS report online 02.22.19. HEATHER Maya
== END 2019-02-26 12:10 | DRG 871 ==
LOC: ED 16:07 → AC 16:38 → ICU 18:15 → AC 02-23 13:03
PROVIDERS: Nurse Practitioner Adult Health; Surgery; Admitting Provider Internal Medicine; Emergency Provider Emergency Medicine; PCP Internal Medicine; Visit Provider Internal Medicine
PROC: 0DJ08ZZ Inspection of Upper Intestinal Tract, Via Natural or Artificial Opening Endoscopic (ICD-10-PCS; CPT 43235; principal; 2019-02-24 11:30)
DX: A41.9 Sepsis, unspecified organism (principal); K29.71 Gastritis, unspecified, with bleeding; L03.311 Cellulitis of abdominal wall; N17.9 Acute kidney failure, unspecified; Z68.42 Body mass index [BMI] 45.0-49.9, adult; I87.333 Chronic venous hypertension (idiopathic) with ulcer and inflammation of bilateral lower extremity; L97.321 Non-pressure chronic ulcer of left ankle limited to breakdown of skin; L97.811 Non-pressure chronic ulcer of other part of right lower leg limited to breakdown of skin; R65.20 Severe sepsis without septic shock; I95.9 Hypotension, unspecified; E66.01 Morbid (severe) obesity due to excess calories; I87.2 Venous insufficiency (chronic) (peripheral); R62.7 Adult failure to thrive; L89.152 Pressure ulcer of sacral region, stage 2; F32.9 Major depressive disorder, single episode, unspecified; F03.90 Unspecified dementia, unspecified severity, without behavioral disturbance, psychotic disturbance, mood disturbance, and anxiety; W18.30XA Fall on same level, unspecified, initial encounter
CPT/HCPCS: 36415; 36592; 43239; 51701; 71045; 80048; 80053; 81001; 81003; 81015; 82271; 82550; 83605; 83735; 83880; 83986; 84145; 84484; 85025; 85610; 85730; 87040; 87070; 87077; 87086; 87147; 87150; 87186; 87205; 87633; 87797; 93005; 93010; 96361; 96365; 97162; 97166; 97530; 97535; 99152; 99232; 99285; C9113; J0692; J0780; J1642; J1644; J2185; J2250; J2405; J3010